=== PATIENT | female | born 1935 | race Caucasian/White ===

== ENCOUNTER 2018-04-07 09:44 | Emergency (ER) | payer OTHER ==
[2018-04-07] MEDS ORDERED: METOPROLOL XL 50 MG TAB PO ONE (10:23)
--- NOTE | 2018-04-07 11:26 | RAD REPORT ---
EXAM DESCRIPTION: RAD - Chest Single View - 04/07/2018 11:15 am CLINICAL HISTORY: Productive cough, sore throat COMPARISON: None. TECHNIQUE: AP portable chest image was obtained 1105 hours . FINDINGS: No focal mass or consolidation seen. Pulmonary vasculature within normal limits. Granuloma tous calcifications are present. Heart size is upper normal. Interstitial markings are prominent in e ach lung base and in the left midlung field. Baseline pattern for the patient is unknown. No measurab le pleural effusion and no pneumothorax. No acute bony abnormality seen. No acute aortic findings marcelo pected. IMPRESSION: No mass, consolidation or significant failure finding. Interstitial markings are prominent on this baseline study. This may all be chronic disease. A superi mposed interstitial edema or infiltrate cannot be excluded.
--- NOTE | 2018-04-07 11:30 | ER ---
Nurse's Notes [facility] Name: Isadora Jeffery Age: 82 yrs Sex: Female : 1935 Arrival Date: 04/07/2018 Time: 09:46 Bed 23 Private MD: Brown Pina R Diagnosis: Bronchitis, not specified as acute or chronic Presentation: 04/07 10:02 Presenting complaint: Patient states: productive cough with yellowish sputum and sore aa5 throat that began 2-3 days ago. Pt reports chest pain only with cough. Transition of care: patient was not received from another setting of care. Onset of symptoms was March 2018. Risk Assessment: Do you want to hurt yourself or someone else? Patient reports no desire to harm self or others. Initial Sepsis Screen: Does the patient meet any 2 criteria? No. Patient's initial sepsis screen is negative. Does the patient have a suspected source of infection? No. Patient's initial sepsis screen is negative. Care prior to arrival: None. 10:02 Method Of Arrival: Ambulatory aa5 10:02 Acuity: ROMELIA 2 aa5 Historical: - Allergies: 10:03 Codeine; aa5 - PMHx: 10:05 Hyperlipidemia; Hypertension; Depression; CVA; aa5 - PSHx: 10:03 Hysterectomy; Cholecystectomy; R foot; Appendectomy; carotid artery; aa5 10:05 Heart stents; aa5 - Immunization history:: Pneumococcal vaccine is up to date, Flu vaccine is up to date. - Social history:: Smoking status: Patient/guardian denies using tobacco. - Ebola Screening: : No symptoms or risks identified at this time. Screenin:38 Abuse screen: Denies threats or abuse. Denies injuries from another. Nutritional aj screening: No deficits noted. Tuberculosis screening: No symptoms or risk factors identified. Fall Risk None identified. Assessment: 10:38 General: Appears in no apparent distress. comfortable, Behavior is calm, cooperative, aj appropriate for age. Pain: Denies pain. Neuro: Level of Consciousness is awake, alert, obeys commands, Oriented to person, place, time, situation, Appropriate for age. Respiratory: Airway is patent Respiratory effort is even, unlabored, Respiratory pattern is regular, symmetrical. Respiratory: Breath sounds are clear bilaterally. EENT: Throat is reddened. Derm: Skin is intact, is healthy with good turgor, Skin is pink, warm \T\ dry. normal. 11:41 Reassessment: Patient appears in no apparent distress at this time. No changes from aj previously documented assessment. Patient and/or family updated on plan of care and expected duration. Pain level reassessed. Patient is alert, oriented x 3, equal unlabored respirations, skin warm/dry/pink. Vital Signs: 10:03 BP 220 / 71; Pulse 58; Resp 18 S; Temp 97.5(O); Pulse Ox 99% on R/A; Weight 51.26 kg aa5 (R); Height 5 ft. 7 in. (170.18 cm) (R); Pain 8/10; 11:19 BP 192 / 102; Pulse 69; Resp 18; Pulse Ox 99% on R/A; aj 10:03 Body Mass Index 17.70 (51.26 kg, 170.18 cm) aa5 ED Course: 09:46 Patient arrived in ED. sb2 09:46 Brown Pina MD is Private Physician. sb2 10:02 Arm band placed on. aa5 10:03 Triage completed. aa5 10:07 Manda Duran, LEWIS is Primary Nurse. aj 10:09 Dennys Watts PA is PHCP. jr8 10:09 Aj Basilio MD is Attending Physician. jr8 10:38 Patient has correct armband on for positive identification. Bed in low position. Pulse aj ox on. NIBP on. 11:13 XRAY Chest (1 view) In Process Unspecified. EDMS 11:30 Brown Pina MD is Referral Physician. jr8 11:41 No provider procedures requiring assistance completed. Patient did not have IV access aj during this emergency room visit. Administered Medications: 10:15 Drug: Metoprolol TARTRATE (Lopressor) 50 mg Route: PO; aj 11:29 Follow up: Response: Blood pressure is lowered aj Outcome: 11:30 Discharge ordered by . jr8 11:41 Discharged to home ambulatory. aj 11:41 Condition: good 11:41 Discharge instructions given to patient, Instructed on discharge instructions, follow up and referral plans. medication usage, Demonstrated understanding of instructions, follow-up care, medications, Prescriptions given X 2. 11:42 Patient left the ED. aj Signatures: Dispatcher [employer] Manda Lino RN RN aj Calderon, Audri, RN RN aa5 Dennys Watts PA PA jr8 Amanda Iraheta sb2 Corrections: (The following items were deleted from the chart) 10: 10:02 Acuity: ROMELIA 3 aa5 aa5 10: 10:02 Presenting complaint: Patient states: productive cough with yellowish sputum and aa5 sore throat that began 2-3 days ago aa5
--- NOTE | 2018-04-07 11:31 | EDPHYS ---
Physician Documentation [facility] Name: Isadora Jeffery Age: 82 yrs Sex: Female : 1935 Arrival Date: 04/07/2018 Time: 09:46 Bed 23 Private MD: Brown Pina R ED Physician Aj Basilio HPI: 04/07 10:49 This 82 yrs old Female presents to ER via Ambulatory with complaints of Sore jr8 Throat. 10:49 The patient presents with sore throat. The patient describes throat pain as jr8 intermittent, raw. Onset: The symptoms/episode began/occurred gradually, 3 day(s) ago. Severity of symptoms: At their worst the symptoms were mild, in the emergency department the symptoms are unchanged. Modifying factors: The symptoms are alleviated by nothing, the symptoms are aggravated by nothing. Associated signs and symptoms: Pertinent positives: cough, rhinorrhea. The patient has not experienced similar symptoms in the past. The patient has not recently seen a physician. Historical: - Allergies: 10:03 Codeine; aa5 - PMHx: 10:05 Hyperlipidemia; Hypertension; Depression; CVA; aa5 - PSHx: 10:03 Hysterectomy; Cholecystectomy; R foot; Appendectomy; carotid artery; aa5 10:05 Heart stents; aa5 - Immunization history:: Pneumococcal vaccine is up to date, Flu vaccine is up to date. - Social history:: Smoking status: Patient/guardian denies using tobacco. - Ebola Screening: : No symptoms or risks identified at this time. ROS: 10:49 Eyes: Negative for injury, pain, redness, and discharge, Neck: Negative for injury, jr8 pain, and swelling, Cardiovascular: Negative for chest pain, palpitations, and edema, Abdomen/GI: Negative for abdominal pain, nausea, vomiting, diarrhea, and constipation, Back: Negative for injury and pain, MS/Extremity: Negative for injury and deformity, Skin: Negative for injury, rash, and discoloration, Neuro: Negative for headache, weakness, numbness, tingling, and seizure. 10:49 ENT: Positive for rhinorrhea, sore throat. 10:49 Respiratory: Positive for cough, with yellow sputum, Negative for dyspnea on exertion, shortness of breath, wheezing. Exam: 10:49 Eyes: Pupils equal round and reactive to light, extra-ocular motions intact. Lids and jr8 lashes normal. Conjunctiva and sclera are non-icteric and not injected. Cornea within normal limits. Periorbital areas with no swelling, redness, or edema. ENT: Nares patent. No nasal discharge, no septal abnormalities noted. Tympanic membranes are normal and external auditory canals are clear. Oropharynx with no redness, swelling, or masses, exudates, or evidence of obstruction, uvula midline. Mucous membranes moist. Neck: Trachea midline, no thyromegaly or masses palpated, and no cervical lymphadenopathy. Supple, full range of motion without nuchal rigidity, or vertebral point tenderness. No Meningismus. Cardiovascular: Regular rate and rhythm with a normal S1 and S2. No gallops, murmurs, or rubs. Normal PMI, no JVD. No pulse deficits. Respiratory: Lungs have equal breath sounds bilaterally, clear to auscultation and percussion. No rales, rhonchi or wheezes noted. No increased work of breathing, no retractions or nasal flaring. Abdomen/GI: Soft, non-tender, with normal bowel sounds. No distension or tympany. No guarding or rebound. No evidence of tenderness throughout. Back: No spinal tenderness. No costovertebral tenderness. Full range of motion. Skin: Warm, dry with normal turgor. Normal color with no rashes, no lesions, and no evidence of cellulitis. MS/ Extremity: Pulses equal, no cyanosis. Neurovascular intact. Full, normal range of motion. Neuro: Awake and alert, GCS 15, oriented to person, place, time, and situation. Cranial nerves II-XII grossly intact. Motor strength 5/5 in all extremities. Sensory grossly intact. Cerebellar exam normal. Normal gait. Vital Signs: 10:03 BP 220 / 71; Pulse 58; Resp 18 S; Temp 97.5(O); Pulse Ox 99% on R/A; Weight 51.26 kg aa5 (R); Height 5 ft. 7 in. (170.18 cm) (R); Pain 8/10; 11:19 BP 192 / 102; Pulse 69; Resp 18; Pulse Ox 99% on R/A; aj 10:03 Body Mass Index 17.70 (51.26 kg, 170.18 cm) aa5 MDM: 10:09 Patient medically screened. [facility] 11:25 Data reviewed: vital signs, nurses notes, lab test result(s), radiologic studies, plain [facility] films, and as a result, I will discharge patient. Data interpreted: Pulse oximetry: on room air is 99 %. Interpretation: normal. Counseling: I had a detailed discussion with the patient and/or guardian regarding: the historical points, exam findings, and any diagnostic results supporting the discharge/admit diagnosis, lab results, radiology results, the need for outpatient follow up, a family practitioner, to return to the emergency department if symptoms worsen or persist or if there are any questions or concerns that arise at home. 04/07 10:15 Order name: Strep; Complete Time: 11: 04/07 10:15 Order name: Flu; Complete Time: 11 04/07 10:42 Order name: XRAY Chest (1 view); Complete Time: 11:29 [facility] 04/07 10:53 Order name: Throat Culture EDMA Administered Medications: 10:15 Drug: Metoprolol TARTRATE (Lopressor) 50 mg Route: PO; 11:29 Follow up: Response: Blood pressure is lowered aj Disposition: 04/07/18 11:30 Discharged to Home. Impression: Bronchitis, not specified as acute or chronic. - Condition is Stable. - Discharge Instructions: Acute Bronchitis, Adult. - Prescriptions for Prednisone 20 mg Oral Tablet - take 1 tablet by ORAL route once daily for 5 days; 5 tablet. Zithromax Z- Leonardo 250 mg Oral Tablet - take 1 tablet by ORAL route as directed for 5 days Day 1 - take two (2) tablets one time. Day 2, 3, 4 , 5 take one (1) tablet once daily.; 6 tablet. - Medication Reconciliation Form, Thank You Letter, Antibiotic Education, Prescription Opioid Use form. - Follow up: Brown Pina MD; When: 5 - 6 days; Reason: Recheck today's complaints, Continuance of care, Re-evaluation by your physician. - Problem is new. - Symptoms have improved. Addendum: 04/15/2018 11:23 Co-signature as Attending Physician, Aj Basilio MD I agree with the assessment and c welch plan of care. Signatures: Dispatcher [employer] Manda Lino RN RN aj Anderson, Corey, MD MD cha Calderon, Audri RN RN aa5 Dennys Watts PA PA jr8 Corrections: (The following items were deleted from the chart) 04/07 11:42 11:30 04/07/2018 11:30 Discharged to Home. Impression: Bronchitis, not specified as aj acute or chronic. Condition is Stable. Forms are Medication Reconciliation Form, Thank You Letter, Antibiotic Education, Prescription Opioid Use. Follow up: Brown Pina; When: 5 - 6 days; Reason: Recheck today's complaints, Continuance of care, Re-evaluation by your physician. Problem is new. Symptoms have improved. jr8
== END 2018-04-07 11:42 | disposition home or self-care (01) ==
LOC: ER 09:44
DX: J40 Bronchitis, not specified as acute or chronic (principal); E78.5 Hyperlipidemia, unspecified; I10 Essential (primary) hypertension; F32.9 Major depressive disorder, single episode, unspecified; Z86.73 Personal history of transient ischemic attack (TIA), and cerebral infarction without residual deficits; Z95.5 Presence of coronary angioplasty implant and graft
CPT/HCPCS: 71045; 87070; 87081; 87804; 99284

== ENCOUNTER 2018-06-15 13:24 | Emergency (ER) | payer OTHER ==
--- NOTE | 2018-06-15 13:53 | RAD REPORT ---
EXAM DESCRIPTION: CT - Ct Stroke Brain Wo Cont - 06/15/2018 1:44 pm CLINICAL HISTORY: Slurred speech, stroke-like symptoms, transient alteration of awareness CLINICAL HISTORY: None. TECHNIQUE: Axial 5 millimeter thick images of the head were obtained without IV contrast. All CT scans are performed using dose optimization technique as appropriate and may include automated exposure control or mA/KV adjustment according to patient size. FINDINGS: No intracranial hemorrhage, mass, or cerebral edema. No acute cortical based infarction id entified. Moderate atrophy and chronic ischemic changes are present. Old left parietal CVA changes ar e present. Ventricles are in proportion to volume loss. Arterial calcifications are present. No extra -axial fluid collections. Vargas matter-white matter differentiation is preserved. No globe or orbital content abnormality. Visualized portions of the mastoid air cells, paranasal sinuses, and orbits are unremarkable. Findings telephoned to Liane in the ER 1:49 p.m. IMPRESSION: No CT evidence of acute intracranial process. Patient has underlying moderate severity atrophy and chronic ischemic change along with old left chata etal CVA changes. Chronic ischemic changes can mask nonhemorrhagic acute infarction. MR brain followup can be obtained if there is ongoing concern for acute ischemia.
[2018-06-15 13:54] LABS: Absolute Lymphocytes (CBC) 1.5 K/uL (0.7-4.9); Absolute Monocytes 0.7 K/uL (0.1-1.3); Absolute Neutrophil 4.1 K/uL (1.8-8.0); Basophils % 0.7 % (0-1.3); Eosinophils % 2.1 % (0-4.4); Hematocrit 36.4 % (36.0-45.0); Lymphocytes % 23.7 % (15.3-44.8); MPV 9.6 fL (7.6-11.3); Monocytes % 10.1 % (3.3-12.3); RBC Red Blood Cell Count 4.15 M/uL (3.86-4.86)
[2018-06-15 14:00] LABS: Protime INR 0.96
[2018-06-15 14:08] LABS: Potassium 4.7 mmol/L (3.5-5.1)
[2018-06-15] MEDS ORDERED: ACETAMINOPHEN 325 MG TABLET ONE (14:21)
--- NOTE | 2018-06-15 14:39 | RAD REPORT ---
EXAM DESCRIPTION: RAD - Chest Single View - 06/15/2018 2:28 pm CLINICAL HISTORY: Fever, slurred speech COMPARISON: March 2018 TECHNIQUE: AP portable chest image was obtained 1357 hours . FINDINGS: Lungs are fibrotic as a baseline. Left upper lobe and lateral right base interstitial robert ings are increased fractionally over the prior study. No dense consolidation. Heart and vasculature a re normal. No measurable pleural effusion and no pneumothorax. No acute bony abnormality seen. No acu te aortic findings suspected. IMPRESSION: Slight increase in lung markings left upper lung field and lateral right base. Findings are concerning for early pneumonia superimposed on fibrosis.
[2018-06-15] MEDS ORDERED: ENALAPRILAT 1.25 MG/ML VIAL IV ONE (15:14)
--- NOTE | 2018-06-15 15:33 | ER ---
Nurse's Notes [facility] Name: Isadora Jeffery Age: 82 yrs Sex: Female : 1935 Arrival Date: 06/15/2018 Time: 13:25 Bed 8 Private MD: Diagnosis: Transient cerebral ischemic attack, unspecified Presentation: 06/15 13:30 Transition of care: patient was not received from another setting of care. An acute la1 neurological deficit is present. Pre-hospital glucose is not applicable to this patient. Onset of symptoms was June 15, 2018 at 13:00. Risk Assessment: Do you want to hurt yourself or someone else? Patient reports no desire to harm self or others. Initial Sepsis Screen: Does the patient meet any 2 criteria? No. Patient's initial sepsis screen is negative. Does the patient have a suspected source of infection? No. Patient's initial sepsis screen is negative. Care prior to arrival: None. 13:30 Method Of Arrival: Ambulatory la1 13:30 Acuity: ROMELIA 2 la1 13:35 Presenting complaint: Child states: I called her around 1300 and she was having slurred la1 speech, pt is alert, oriented x4 and states her slurred speech and trouble forming words started at 1300. Stroke Activation: Symptom onset < 3 hours Physician: Stroke Attending; Name: dr willoughby; Notified At: 13:00; Arrived At: 13:30 Physician: Chief Stroke Resident; Name: ; Notified At: 13:00; Arrived At: Physician: Stroke Resident; Name: ; Notified At: 13:00; Arrived At: Physician: ED Attending; Name: ; Notified At: 13:00; Arrived At: Physician: ED Resident; Name: ; Notified At: 13:00; Arrived At: Historical: - Allergies: 13:38 Codeine; la1 - PMHx: 13:38 CVA; Depression; Hyperlipidemia; Hypertension; la1 - Immunization history:: Adult Immunizations up to date. - Social history:: Smoking status: Patient/guardian denies using tobacco. - Ebola Screening: : No symptoms or risks identified at this time. Screenin:56 Abuse screen: Denies threats or abuse. Denies injuries from another. Nutritional jl7 screening: No deficits noted. Tuberculosis screening: No symptoms or risk factors identified. Fall Risk IV access (20 points). Total Boyd Fall Scale indicates No Risk (0-24 pts). Assessment: 13:56 VAN Scoring: Arm Drift: Patients demonstrates NO arm weakness. Patient is VAN Negative. jl7 The patient has not been NPO before screening. The patient is currently on the following diet: regular The patient is alert, and able to follow commands. The patient does not exhibit slurred or garbled speech. The patient is not exhibiting difficulty speaking. The patient does not exhibit difficulty understanding words. The patient is able to swallow own secretions with no drooling or need for suction. Patient tolerated one teaspoon of water. No drooling, immediate coughing, gurgling, or clearing of the throat was noted. The patient tolerated 90mL of water. No drooling, immediate coughing, gurgling, or clearing of the throat was noted. The patient passed the bedside swallow screening. Oral medications may be given as ordered. Contact Physician for further diet orders. Provider notified of bedside swallow screening results: Oswald Willoughby MD. T-PA (Activase) Screening: Contraindications: Rapidly improving condition or minor deficit: Yes. General: Appears in no apparent distress. uncomfortable, Behavior is calm, cooperative, appropriate for age. Pain: Complains of pain in occipital area Pain currently is 8 out of 10 on a pain scale. Pain began 1 hour ago. Neuro: Level of Consciousness is awake, alert, obeys commands, Oriented to person, place, time, situation. Cardiovascular: Patient's skin is warm and dry. Respiratory: Airway is patent Respiratory effort is even, unlabored, Respiratory pattern is regular, symmetrical. GI: No signs and/or symptoms were reported involving the gastrointestinal system. Patient currently denies diarrhea, nausea, vomiting. : No signs and/or symptoms were reported regarding the genitourinary system. EENT: No signs and/or symptoms were reported regarding the EENT system. Derm: Skin is pink, warm \T\ dry. Musculoskeletal: No signs and/or symptoms reported regarding the musculoskeletal system. 15:00 Reassessment: Patient appears in no apparent distress at this time. Patient and/or jl7 family updated on plan of care and expected duration. Pain level reassessed. Patient is alert, oriented x 3, equal unlabored respirations, skin warm/dry/pink. 15:32 Reassessment: Pt's son Josue Jeffery, . jl7 16:10 Reassessment: [facility] at bedside to transport pt to [facility], pt's family jl7 will be following. Pt's BP unchanged, ERD notified, ordered 10 mg Hydralazine IVP prior to departure. Vital Signs: 13:45 BP 152 / 90; Pulse 61; Resp 18 S; Pulse Ox 100% on R/A; jl7 14:04 BP 216 / 87; Pulse 55; Resp 16 S; Pulse Ox 100% on R/A; jl7 14:45 BP 233 / 62; Pulse 56; Resp 16 S; Pulse Ox 100% on R/A; jl7 15:00 BP 226 / 65; Pulse 53; Resp 16 S; Pulse Ox 99% on R/A; jl7 16:10 BP 142 / 90; Pulse 55; Resp 16 S; Pulse Ox 99% on R/A; jl7 NIH Stroke Scale Scores: 13:56 NIHSS Score: 0 jl7 15:04 NIHSS Score: 0 ED Course: 13:25 Patient arrived in ED. as 13:30 Oswald Willoughby MD is Attending Physician. gs 13:38 Triage completed. la1 13:38 Arm band placed on left wrist. la1 13:44 CT Stroke Brain w/o Contrast In Process Unspecified. EDMS 13:55 Vineet Ivory, RN is Primary Nurse. jl7 13:56 Patient has correct armband on for positive identification. Placed in gown. Bed in low jl7 position. Call light in reach. Side rails up X2. residential monitor on. Pulse ox on. NIBP on. Warm blanket given. 13:56 Initial lab(s) drawn, by me, sent to lab. EKG done, by ED staff, reviewed by Oswald Willoughby MD. Inserted saline lock: 22 gauge in right forearm, using aseptic technique. Blood collected. 14:28 Stroke CXR 1 View In Process Unspecified. EDMS 14:36 initiated a transfer with Torri Noel at the [facility] transfer center. eb 14:54 connected the neurologist branch operations manager from [facility] with Dr. Willoughby for patient eb transfer consultation/. 15:[address] Hadley the hospitalist branch operations manager from [facility] with Dr. Willoughby for patient eb transfer consultation. 15:27 administrative approval given by Torri Noel / patient going to [address] [place] [facility]/ eb report to be called to [phone]/ has accepted the patient in transfer. 16:14 No provider procedures requiring assistance completed. Patient transferred, IV remains jl7 in place. intact, No redness/swelling at site. Administered Medications: 14:15 Drug: Tylenol 650 mg Route: PO; jl7 15:15 Follow up: Response: No adverse reaction; Pain is decreased jl7 15:10 Drug: Enalaprilat 1.25 mg Route: IV; Rate: calculated rate; Site: right forearm; jl7 15:12 Follow up: IV Status: Completed infusion jl7 15:38 Follow up: Response: Blood pressure is unchanged jl7 15:46 Drug: hydrALAZINE 10 mg Route: IV; Rate: calculated rate; Site: right forearm; jl7 15:48 Follow up: IV Status: Completed infusion jl7 16:10 Follow up: Response: Blood pressure is unchanged jl7 16:10 Drug: hydrALAZINE 10 mg Route: IV; Rate: calculated rate; Site: right forearm; jl7 16:12 Follow up: IV Status: Completed infusion jl7 Point of Care Testing: Blood Glucose: 13:50 Blood Glucose: 160 mg/dL; jl7 Ranges: Outcome: 15:32 ER care complete, transfer ordered by MD. triplett 16:14 Transferred by ground EMS to [facility], Transfer form completed. jl7 16:14 Condition: stable 16:14 Discharge instructions given to patient, family, Instructed on the need for transfer, Demonstrated understanding of instructions. 16:19 Patient left the ED. jl7 NIH Stroke Scale - NIH Stroke Score Date: 06/15/2018 Time: 13:56 Total Score = 0 1a. Level of Consciousness (LOC) - 0(Alert) 1b. Level of Consciousness (LOC) (Year \T\ Age) - 0(Both) 1c. LOC Commands (Open \T\ Closes Eyes/Landscaping Supervisor) - 0(Both) 2. Best Gaze (Lateral Gaze Paresis) - 0(Normal) 3. Visual Field Loss - 0(No visual loss) 4. Facial Palsy - 0(Normal) 5a. Left Arm: Motor (10-second hold) - 0(No drift) 5b. Right Arm: Motor (10-second hold) - 0(No drift) 6a. Left Leg: Motor (5-second hold - always test supine) - 0(No drift) 6b. Right Leg: Motor (5-second hold - always test supine) - 0(No drift) 7. Limb Ataxia (finger/nose \T\ heel/gutierrez - test with eyes open) - 0(Absent) 8. Sensory Loss (pinprick arms/legs/face) - 0(Normal) 9. Best Language: Aphasia (description/naming/reading) - 0(No aphasia) 10. Dysarthria (speech clarity - read or repeat words) - 0(Normal) 11. Extinction and Inattention (visual/tactile/auditory/spatial/personal) - 0(No abnormality) Initials: jl7 NIH Stroke Scale - NIH Stroke Score Date: 06/15/2018 Time: 15:04 Total Score = 0 1a. Level of Consciousness (LOC) - 0(Alert) 1b. Level of Consciousness (LOC) (Year \T\ Age) - 0(Both) 1c. LOC Commands (Open \T\ Closes Eyes/Landscaping Supervisor) - 0(Both) 2. Best Gaze (Lateral Gaze Paresis) - 0(Normal) 3. Visual Field Loss - 0(No visual loss) 4. Facial Palsy - 0(Normal) 5a. Left Arm: Motor (10-second hold) - 0(No drift) 5b. Right Arm: Motor (10-second hold) - 0(No drift) 6a. Left Leg: Motor (5-second hold - always test supine) - 0(No drift) 6b. Right Leg: Motor (5-second hold - always test supine) - 0(No drift) 7. Limb Ataxia (finger/nose \T\ heel/gutierrez - test with eyes open) - 0(Absent) 8. Sensory Loss (pinprick arms/legs/face) - 0(Normal) 9. Best Language: Aphasia (description/naming/reading) - 0(No aphasia) 10. Dysarthria (speech clarity - read or repeat words) - 0(Normal) 11. Extinction and Inattention (visual/tactile/auditory/spatial/personal) - 0(No abnormality) Initials: Signatures: Dispatcher [employer] Rozina Monroy Lee, RN RN la1 Vineet Ivory RN RN jl7 Oswald Willoughby MD MD gs Botello, Elizabeth eb
--- NOTE | 2018-06-15 15:33 | EDPHYS ---
Physician Documentation [facility] Name: Isadora Jeffery Age: 82 yrs Sex: Female : 1935 Arrival Date: 06/15/2018 Time: 13:25 Bed 8 Private MD: ED Physician Oswald Matthews HPI: 06/15 15:04 This 82 yrs old Female presents to ER via Ambulatory with complaints of gs Slurred Speech. 15:04 The patient presents to the emergency department with weakness of the left side of the gs face, a speech or higher order brain function problem, aphasia. Onset: The symptoms/episode began/occurred today, at 13:00. Associated signs and symptoms: Pertinent negatives: altered mental status. Severity of symptoms: At their worst the symptoms were severe in the emergency department the symptoms have resolved and did so just prior to arrival. Patient's baseline: Motor: no deficits, Ambulation: walks without assistance. Current symptoms: Currently, the patient is not experiencing any symptoms. The patient has experienced a previous episode. The patient has not recently seen a physician. Historical: - Allergies: 13:38 Codeine; la1 - PMHx: 13:38 CVA; Depression; Hyperlipidemia; Hypertension; la1 - Immunization history:: Adult Immunizations up to date. - Social history:: Smoking status: Patient/guardian denies using tobacco. - Ebola Screening: : No symptoms or risks identified at this time. ROS: 15:04 All other systems are negative. gs Exam: 15:04 Head/Face: Normocephalic, atraumatic. Eyes: Pupils equal round and reactive to light, gs extra-ocular motions intact. Lids and lashes normal. Conjunctiva and sclera are non-icteric and not injected. Cornea within normal limits. Periorbital areas with no swelling, redness, or edema. ENT: Nares patent. No nasal discharge, no septal abnormalities noted. Tympanic membranes are normal and external auditory canals are clear. Oropharynx with no redness, swelling, or masses, exudates, or evidence of obstruction, uvula midline. Mucous membranes moist. Neck: Trachea midline, no thyromegaly or masses palpated, and no cervical lymphadenopathy. Supple, full range of motion without nuchal rigidity, or vertebral point tenderness. No Meningismus. Chest/axilla: Normal chest wall appearance and motion. Nontender with no deformity. No lesions are appreciated. Cardiovascular: Regular rate and rhythm with a normal S1 and S2. No gallops, murmurs, or rubs. Normal PMI, no JVD. No pulse deficits. Respiratory: Lungs have equal breath sounds bilaterally, clear to auscultation and percussion. No rales, rhonchi or wheezes noted. No increased work of breathing, no retractions or nasal flaring. Abdomen/GI: Soft, non-tender, with normal bowel sounds. No distension or tympany. No guarding or rebound. No evidence of tenderness throughout. Back: No spinal tenderness. No costovertebral tenderness. Full range of motion. Skin: Warm, dry with normal turgor. Normal color with no rashes, no lesions, and no evidence of cellulitis. MS/ Extremity: Pulses equal, no cyanosis. Neurovascular intact. Full, normal range of motion. 15:04 Constitutional: The patient appears alert, awake. 15:04 Neuro: Orientation: is normal, Mentation: is normal, Memory: is normal, Cranial nerves: CN II- XII are normal as tested, Cerebellar function: normal finger to nose testing, Motor: moves all fours, strength is normal, Sensation: no obvious gross deficits. 15:04 ECG was reviewed by the Attending Physician. Vital Signs: 13:45 BP 152 / 90; Pulse 61; Resp 18 S; Pulse Ox 100% on R/A; jl7 14:04 BP 216 / 87; Pulse 55; Resp 16 S; Pulse Ox 100% on R/A; jl7 14:45 BP 233 / 62; Pulse 56; Resp 16 S; Pulse Ox 100% on R/A; jl7 15:00 BP 226 / 65; Pulse 53; Resp 16 S; Pulse Ox 99% on R/A; jl7 16:10 BP 142 / 90; Pulse 55; Resp 16 S; Pulse Ox 99% on R/A; jl7 NIH Stroke Scale Scores: 13:56 NIHSS Score: 0 [facility] 15:04 NIHSS Score: 0 MDM: 13:52 Patient medically screened. 15:04 Data reviewed: vital signs, nurses notes, old medical records, lab test result(s), EKG, gs radiologic studies. Counseling: I had a detailed discussion with the patient and/or guardian regarding: the historical points, exam findings, and any diagnostic results supporting the discharge/admit diagnosis, the need to transfer to another facility. Response to treatment: the patient's symptoms have resolved after treatment. ED course: ddx cva, tia, neoplasm, ic bleed. 15:11 ED course: pt has no s/s of pneumonia will trend cxr findings. 06/15 13:30 Order name: Basic Metabolic Panel; Complete Time: 15:02 06/15 13:30 Order name: CBC with Diff; Complete Time: 15: 06/15 13:30 Order name: Protime (+inr); Complete Time: 15:02 06/15 13:30 Order name: Ptt, Activated; Complete Time: 15:02 06/15 13:30 Order name: CT Stroke Brain w/o Contrast; Complete Time: 15:02 06/15 13:30 Order name: Stroke CXR 1 View; Complete Time: 15:02 06/15 13:30 Order name: EKG; Complete Time: 13:31 06/15 13:30 Order name: Accucheck; Complete Time: 14:17 06/15 13:30 Order name: Cardiac monitoring; Complete Time: 14:00 06/15 13:30 Order name: EKG - Nurse/Tech; Complete Time: 14:00 06/15 13:30 Order name: IV Saline Lock; Complete Time: 14:00 06/15 13:30 Order name: Labs collected and sent; Complete Time: 14:00 06/15 13:30 Order name: NPO; Complete Time: 14:01 06/15 13:30 Order name: O2 Per Protocol; Complete Time: 14:00 06/15 13:30 Order name: O2 Sat Monitoring; Complete Time: 14:00 06/15 13:30 Order name: Stroke Swallow Screen; Complete Time: 14:01 EC:04 Rate is 55 beats/min. Rhythm is regular. KS interval is normal. QRS interval is gs prolonged. T waves are Inverted. Clinical impression: NSR w/ Non-specific ST/T Changes. Interpreted by me. Administered Medications: 14:15 Drug: Tylenol 650 mg Route: PO; jl7 15:15 Follow up: Response: No adverse reaction; Pain is decreased jl7 15:10 Drug: Enalaprilat 1.25 mg Route: IV; Rate: calculated rate; Site: right forearm; jl7 15:12 Follow up: IV Status: Completed infusion jl7 15:38 Follow up: Response: Blood pressure is unchanged jl7 15:46 Drug: hydrALAZINE 10 mg Route: IV; Rate: calculated rate; Site: right forearm; jl7 15:48 Follow up: IV Status: Completed infusion jl7 16:10 Follow up: Response: Blood pressure is unchanged jl7 16:10 Drug: hydrALAZINE 10 mg Route: IV; Rate: calculated rate; Site: right forearm; jl7 16:12 Follow up: IV Status: Completed infusion jl7 Point of Care Testing: Blood Glucose: 13:50 Blood Glucose: 160 mg/dL; jl7 Ranges: Critical Glucose Levels:Adult <50 mg/dl or >400 mg/dl <40 mg/dl or >180 mg/dl Disposition: 06/15/18 15:[address] [facility]. Diagnosis is Transient cerebral ischemic attack, unspecified. - Reason for transfer: Higher level of care. - Accepting physician is guanaco. - Condition is Stable. - Problem is new. - Symptoms are resolved. Critical care time excluding procedures: 15:11 Critical care time: Bedside Care: 10 minutes, Consultation: 10 minutes, Family gs Intervention: 10 minutes. Total time: 30 minutes NIH Stroke Scale - NIH Stroke Score Date: 06/15/2018 Time: 13:56 Total Score = 0 1a. Level of Consciousness (LOC) - 0(Alert) 1b. Level of Consciousness (LOC) (Year \T\ Age) - 0(Both) 1c. LOC Commands (Open \T\ Closes Eyes/Gas Operations Superintendent) - 0(Both) 2. Best Gaze (Lateral Gaze Paresis) - 0(Normal) 3. Visual Field Loss - 0(No visual loss) 4. Facial Palsy - 0(Normal) 5a. Left Arm: Motor (10-second hold) - 0(No drift) 5b. Right Arm: Motor (10-second hold) - 0(No drift) 6a. Left Leg: Motor (5-second hold - always test supine) - 0(No drift) 6b. Right Leg: Motor (5-second hold - always test supine) - 0(No drift) 7. Limb Ataxia (finger/nose \T\ heel/gutierrez - test with eyes open) - 0(Absent) 8. Sensory Loss (pinprick arms/legs/face) - 0(Normal) 9. Best Language: Aphasia (description/naming/reading) - 0(No aphasia) 10. Dysarthria (speech clarity - read or repeat words) - 0(Normal) 11. Extinction and Inattention (visual/tactile/auditory/spatial/personal) - 0(No abnormality) Initials: jl7 NIH Stroke Scale - NIH Stroke Score Date: 06/15/2018 Time: 15:04 Total Score = 0 1a. Level of Consciousness (LOC) - 0(Alert) 1b. Level of Consciousness (LOC) (Year \T\ Age) - 0(Both) 1c. LOC Commands (Open \T\ Closes Eyes/Gas Operations Superintendent) - 0(Both) 2. Best Gaze (Lateral Gaze Paresis) - 0(Normal) 3. Visual Field Loss - 0(No visual loss) 4. Facial Palsy - 0(Normal) 5a. Left Arm: Motor (10-second hold) - 0(No drift) 5b. Right Arm: Motor (10-second hold) - 0(No drift) 6a. Left Leg: Motor (5-second hold - always test supine) - 0(No drift) 6b. Right Leg: Motor (5-second hold - always test supine) - 0(No drift) 7. Limb Ataxia (finger/nose \T\ heel/gutierrez - test with eyes open) - 0(Absent) 8. Sensory Loss (pinprick arms/legs/face) - 0(Normal) 9. Best Language: Aphasia (description/naming/reading) - 0(No aphasia) 10. Dysarthria (speech clarity - read or repeat words) - 0(Normal) 11. Extinction and Inattention (visual/tactile/auditory/spatial/personal) - 0(No abnormality) Initials: Signatures: Dispatcher [employer] EDMS Kavin Santamaria RN RN [email or web address] Vineet Ivory RN RN jl7 Oswald Matthews MD MD gs Corrections: (The following items were deleted from the chart) 16:19 15:32 06/15/2018 15:[address] [facility]. jl7 Diagnosis is Transient cerebral ischemic attack, unspecified. Reason for transfer: Higher level of care. Accepting physician is wahid. Condition is Stable. Problem is new. Symptoms are resolved. gs
[2018-06-15] MEDS ORDERED: HYDRALAZINE HCL 20 MG/ML VIAL ONE (15:54)
--- NOTE | 2018-06-16 09:12 | EKG ---
Test Date: 2018-06-15 Test Time: 13:57:34 Medication Tech: HIMANSHU MEASUREMENT RESULTS: Intervals: Rate: 55 ID: [id number] QRSD: 108 QT: 452 QTc: 432 [place]: P: 73 ID: [id number] QRS: -27 T: -40 INTERPRETIVE STATEMENTS: Sinus bradycardia Left ventricular hypertrophy with repolarization abnormality Septal infarct, age undetermined Abnormal ECG No previous ECG available for comparison Electronically Signed On 06-16-18 09:12:04 [employer] by Timmy Garcia
== END 2018-06-15 16:19 | disposition short-term general hospital (02) ==
LOC: ER 13:24
DX: G45.9 Transient cerebral ischemic attack, unspecified (principal); I10 Essential (primary) hypertension; Z86.73 Personal history of transient ischemic attack (TIA), and cerebral infarction without residual deficits; Z88.5 Allergy status to narcotic agent
CPT/HCPCS: 93005; 85025; 80048; 36415; 85610; 82962; 85730; 70450; 71045; 96375; 96374; 99285; J0360

== ENCOUNTER 2019-04-29 12:04 | Observation (INO) | payer OTHER ==
--- OUTSIDE RECORDS SUMMARY | 2019-04-29 12:06 | XMS REPORT ---
:1935 [facility] Address [address] [place] [address] Care Team Providers Name Role Phone NICOLE RUBALCAVA Unavailable Unavailable Problems This patient has no known problems. Allergies, Adverse Reactions, Alerts This patient has no known allergies or adverse reactions. Medications This patient has no known medications. Results Test Description Test Time Test Comments Text Results Atomic Results Result Comments CALCIUM, IONIZED 2018-06-17 06:48:00 Test Item Value Reference Range Comments CALCIUM IONIZED (BEAKER) (test xala=310) 1.05 mmol/L 1.12-1.27 PH, BLOOD (BEAKER) (test vyno=7408) 7.43 [id number] 06:12:00 Test Item Value Reference Range Comments PHOSPHORUS (BEAKER) (test bnkt=157) 3.4 mg/dL 2.3-4.7 [id number] 06:12:00 Test Item Value Reference Range Comments MAGNESIUM (BEAKER) (test fqwd=786) 1.7 mg/dL 1.6-2.6 BASIC METABOLIC [id number] 06:12:00 Test Item Value Reference Range Comments SODIUM (BEAKER) (test 142 meq/L 136-145 fwzo=710) POTASSIUM (BEAKER) (test 4.6 meq/L 3.5-5.1 sqnu=512) CHLORIDE (BEAKER) (test 112 meq/L 98-107 mjal=113) CO2 (BEAKER) (test 24 meq/L 22-29 xhek=845) BLOOD UREA NITROGEN 35 mg/dL 7-21 (BEAKER) (test ucco=879) CREATININE (BEAKER) (test 1.55 mg/dL 0.57-1.25 riur=098) GLUCOSE RANDOM (BEAKER) 101 mg/dL 70-105 (test uymn=054) CALCIUM (BEAKER) (test 8.5 mg/dL 8.4-10.2 gotr=781) EGFR (BEAKER) (test 32 mL/min/1.73 sq m ESTIMATED GFR IS NOT atux=6616) ACCURATE CREATININE CLEARANCE IN PREDICTING GLOMERULAR FILTRATION RATE. ESTIMATED GFR IS NOT APPLICABLE FOR DIALYSIS PATIENTS. CBC W/PLT COUNT & AUTO [id number] 05:34:00 Test Item Value Reference Range Comments WHITE BLOOD CELL COUNT (BEAKER) (test kylh=432) 5.1 K/ L 3.5-10.5 RED BLOOD CELL COUNT (BEAKER) (test udsy=522) 3.43 M/ L 3.93-5.22 HEMOGLOBIN (BEAKER) (test bsgn=513) 10.0 GM/DL 11.2-15.7 HEMATOCRIT (BEAKER) (test idne=976) 31.7 % 34.1-44.9 MEAN CORPUSCULAR VOLUME (BEAKER) (test okmv=203) 92.4 fL 79.4-94.8 MEAN CORPUSCULAR HEMOGLOBIN (BEAKER) (test 29.2 pg 25.6-32.2 sxjd=961) MEAN CORPUSCULAR HEMOGLOBIN CONC (BEAKER) (test 31.5 GM/DL 32.2-35.5 vdsu=490) RED CELL DISTRIBUTION WIDTH (BEAKER) (test 12.9 % 11.7-14.4 ffpf=268) PLATELET COUNT (BEAKER) (test giod=994) 156 K/CU MM 150-450 MEAN PLATELET VOLUME (BEAKER) (test path=079) 11.6 fL 9.4-12.3 NUCLEATED RED BLOOD CELLS (BEAKER) (test 0 /100 WBC 0-0 jvud=720) NEUTROPHILS RELATIVE PERCENT (BEAKER) (test 63 % fanf=288) LYMPHOCYTES RELATIVE PERCENT (BEAKER) (test 24 % riro=806) MONOCYTES RELATIVE PERCENT (BEAKER) (test 10 % glam=085) EOSINOPHILS RELATIVE PERCENT (BEAKER) (test 2 % zgsy=205) BASOPHILS RELATIVE PERCENT (BEAKER) (test 1 % kcyr=048) NEUTROPHILS ABSOLUTE COUNT (BEAKER) (test 3.20 K/ L 1.56-6.13 ngbp=248) LYMPHOCYTES ABSOLUTE COUNT (BEAKER) (test 1.19 K/ L 1.18-3.74 pvje=716) MONOCYTES ABSOLUTE COUNT (BEAKER) (test 0.49 K/ L 0.24-0.36 cjni=182) EOSINOPHILS ABSOLUTE COUNT (BEAKER) (test 0.12 K/ L 0.04-0.36 ptqw=680) BASOPHILS ABSOLUTE COUNT (BEAKER) (test 0.03 K/ L 0.01-0.08 pbqj=194) IMMATURE GRANULOCYTES-RELATIVE PERCENT (BEAKER) 0 % 0-1 (test wijc=6183) MR, MRA, BRAIN, WITHOUT [id number] 10:59:00Reason for exam:-> Ischemic Stroke EvaluationFINAL REPORT MRA Head CLINICAL HISTORY: Stroke TECHNIQUE: MRA of the head utilizing 3-D coio-kq-lczghw technique, with 3-D reconstructions. COMPARISON: None IMPRESSION: Allowing for mild motion degradation, there is no evidence for a [place] proximal branch vessel occlusion. Distal branch vessel occlusions cannot be excluded. Aneurysms cannot be excluded. MRA Neck CLINICAL HISTORY: Stroke TECHNIQUE: MRA of the neck utilizing 2-D and 3-D jsuf-hq-vrpdrj technique, with 3-D reconstructions. COMPARISON: None IMPRESSION: Metallic shielding effect around the left carotid bifurcation is compatible with a stent. The left carotid artery is patent proximal and distal to the stent, but please note that in- stent stenosis cannot be excluded. There is 20% stenosis of the proximal right internal carotid artery by NASCET criteria. There is antegrade flow in the right vertebral artery. The proximal left vertebral artery is not visualized. The distal left cervical vertebral artery is discontinuous and threadlike, likely partially reconstituted by cervical muscular branches. Signed: Arianna Rosas MDReport Verified Date/Time: 06/16/2018 10:59:34 Reading Location: [address] Neuro Reading Room MR, MRA, NECK, WITHOUT IV [id number] 10:59: 00Reason for exam:->Ischemic Stroke EvaluationFINAL REPORT MRA Head CLINICAL HISTORY: Stroke TECHNIQUE: MRA of the head utilizing 3-D ouap-cl-zgjhbn technique, with 3-D reconstructions. COMPARISON: None IMPRESSION: Allowing for mild motion degradation, there is no evidence for a [place] proximal branch vessel occlusion. Distal branch vessel occlusions cannot be excluded. Aneurysms cannot be excluded. MRA Neck CLINICAL HISTORY: Stroke TECHNIQUE: MRA of the neck utilizing 2-D and 3-D time- of-flight technique, with 3-D reconstructions. COMPARISON: None IMPRESSION: Metallic shielding effect around the left carotid bifurcation is compatible with a stent. The left carotid artery is patent proximal and distal to the stent , but please note that in-stent stenosis cannot be excluded. There is 20% stenosis of the proximal right internal carotid artery by NASCET criteria. There is antegrade flow in the right vertebral artery. The proximal left vertebral artery is not visualized. The distal left cervical vertebral artery is discontinuous and threadlike, likely partially reconstituted by cervical muscular branches. Signed: Arianna Rosasort Verified Date/Time: 2018 10:59:34 Reading Location: [address] Neuro Reading Room MR, BRAIN, WITHOUT [id number] 10:52:00Reason for exam:->Ischemic Stroke EvaluationFINAL REPORT MRI Brain without contrast Clinical History: TIA, stroke Technique: MRI of the brain utilizing axial T2, FLAIR, GRE, DWI; sagittal and coronal T1-weighted images. Comparisons: None Findings: There is no evidence of acute infarct or hemorrhage. There are chronic leftmid and posterior frontal lobe infarcts. There is a chronic left parietal infarct with encephalomalacia and mild hemosiderin staining. There are small chronic left occipital pole infarcts. There is moderate periventricular and subcortical white matter T2 hyperintensity, which is nonspecific but compatible with chronic microvascular ischemic change. There is generalized parenchymal volume loss withouthydrocephalus, midline shift, or apparent mass effect. There are no extra-axial fluid collections. The craniocervical junction is preserved. The major intracranial flow-voids appear patent. IMPRESSION: No evidence of acute infarct, hemorrhage, or hydrocephalus. Chronic infarcts of the left frontal, parietal, and occipital lobes. Chronic microvascular ischemic disease with generalized parenchymal volume loss. Signed: Arianna Rosasort Verified Date/Time: 06/16/2018 10:52:22 Reading Location: [address] Neuro Reading Room HEMOGLOBIN [id number] 09:43:00 Test Item Value Reference Range Comments HEMOGLOBIN A1C (BEAKER) (test izcg=353) 5.9 % 4.3-6.1 VITAMIN [id number] 06:40:00 Test Item Value Reference Range Comments VITAMIN B12 (BEAKER) (test apuv=828) 375 pg/mL 213-816 TSH/FREE T4 IF [id number] 05:45:00 Test Item Value Reference Range Comments THYROID STIMULATING HORMONE (BEAKER) (test 4.44 uIU/mL 0.35-4.94 kypy=206) LIPID [id number] 05:27:00 Test Item Value Reference Range Comments TRIGLYCERIDES (BEAKER) (test 73 mg/dL Specimen slightly hemolyzed vrqz=108) CHOLESTEROL (BEAKER) (test 114 mg/dL Specimen slightly hemolyzed sjsw=883) HDL CHOLESTEROL (BEAKER) (test 46 mg/dL dtmn=779) LDL CHOLESTEROL CALCULATED 53 mg/dL (BEAKER) (test bvqw=676) Triglyceride Reference Range: Low Risk <150 Borderline 150- 199 High Risk 200-499 Very High Risk >=500Cholesterol Reference Range: Low Risk <200 Borderline 200-239 High Risk > 240HDL Cholesterol Reference Range: Low Risk >=60 High Risk <40LDL Cholesterol Reference Range: Optimal <100 Near Optimal 100-129 Borderline 130-159 High 160-189 Very High >=190
--- OUTSIDE RECORDS SUMMARY | 2019-04-29 12:06 | XMS REPORT ---
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 Problem Presence of right artificial hip Z96.641 Active joint Assessment Pain of right hip joint pain M25.551 Active Problem Scoliosis of lumbar region due to M41.56 Active degenerative disease of spine in adult Problem Pain of right hip joint pain M25.551 Active Medications Medication Code System Code Instructions Start End Date Status Dosage Date Alendronate Sodium [facility] 06247-57 Active not defined 01-00 Metoprolol [facility] 91986-91 Active not defined Succinate 11-30 Atorvastatin [facility] 97607-76 Active not defined Calcium 57-98 Losartan Potassium [facility] 64370-40 Active not defined 02-10 Prasugrel HCl [facility] 16074-44 Active not defined 86-93 Aspirin [facility] 44608-65 Active not defined 36-12 Levothyroxine [facility] 46473-46 Active not defined Sodium - Results No Known Results Summary Purpose [employer] Submission
--- OUTSIDE RECORDS SUMMARY | 2019-04-29 12:07 | XMS REPORT ---
:1935 Author Organization [employer] Care Team Providers Name Role Phone HilliardTucker Provider Role Unavailable Allergies, Adverse Reactions, Alerts Substance Reaction Event Type codeine Info Not Available Drug Allergy Problems Problem Type Condition Code Onset Dates Condition Status Assessment Presence of right artificial hip Z96.641 [...] joint pain M25.551 Active Medications Medication Code Code Instructions Start End Status Dosage System Date Date Atorvastatin [facility] [address]-13 Active not Calcium defined Metoprolol [facility] [address]-34 Active not Succinate defined Alendronate [facility] [address]-90 Active not Sodium defined Levothyroxine [facility] [address]-49 Active not Sodium defined Losartan [facility] [address]-15 Active not Potassium defined Aspirin [facility] [address]-28 Active not defined Prasugrel HCl [facility] [address]-21 Active not defined Tylenol 8 Hour [facility] [id number] 650 MG Orally November 06, Active 2 tablets every 8 hrs 2019 as needed Results No Known Results Summary Purpose [employer] Submission
[2019-04-29] MEDS ORDERED: NA CHLORIDE 0.9% 1,000 ML ONE (13:49)
--- NOTE | 2019-04-29 14:06 | RAD REPORT ---
EXAM DESCRIPTION: CT - Head Brain Wo Cont - 04/29/2019 1:56 pm CLINICAL HISTORY: Dizziness;Headache Headache, hypertension, drowsiness COMPARISON: Ct Stroke Brain Wo Cont dated 06/15/2018 TECHNIQUE: All CT scans are performed using dose optimization technique as appropriate and may inclu de automated exposure control or mA/KV adjustment according to patient size. FINDINGS: No intracranial hemorrhage, hydrocephalus or extra-axial fluid collection.Moderate general ized brain atrophy is present with moderate periventricular and deep white matter chronic microvascul ar ischemic changes.No areas of brain edema or evidence of midline shift. The paranasal sinuses and mastoids are clear. The calvarium is intact. IMPRESSION: No acute intracranial abnormality.
[2019-04-29 14:31] LABS: Absolute Lymphocytes (CBC) 1.7 K/uL (0.7-4.9); Basophils % 0.5 % (0-1.3); Hematocrit 34.4 % (36.0-45.0); Lymphocytes % 20.3 % (15.3-44.8); RBC Red Blood Cell Count 3.82 M/uL (3.86-4.86)
[2019-04-29 14:32] LABS: Protime INR 0.89
--- NOTE | 2019-04-29 14:42 | EKG ---
Test Date: 2019-04-29 Test Time: 14:17:24 [employer] Converter: VERNELL MEASUREMENT RESULTS: Intervals: Rate: 82 UT: 132 QRSD: 102 QT: 386 QTc: 450 [place]: P: 87 UT: 132 QRS: -17 T: 80 INTERPRETIVE STATEMENTS: Normal sinus rhythm with sinus arrhythmia Moderate voltage criteria for LVH, may be normal variant Cannot rule out Septal infarct, age undetermined Abnormal ECG Compared to ECG 06/15/2018 13:57:34 Sinus bradycardia no longer present Early repolarization no longer present Myocardial infarct finding still present Electronically Signed On 04-29-19 14:41:56 SKEIN MERCERIZING MACHINE OPERATOR by Timmy Garcia
--- NOTE | 2019-04-29 14:46 | RAD REPORT ---
EXAM DESCRIPTION: RAD - Chest Single View - 04/29/2019 2:41 pm CLINICAL HISTORY: COUGH Chest pain. COMPARISON: Chest Single View dated 06/15/2018; Chest Single View dated 04/07/2018 FINDINGS: Portable technique limits examination quality. The lungs are emphysematous but grossly clear. The heart is normal in size. Mild scoliotic curvature of the thoracic spine.Cholecystectomy clips. IMPRESSION: COPD.
[2019-04-29 14:49] LABS: ALT/SGPT 23 U/L (12-78); AST/SGOT 21 U/L (15-37); Albumin 3.7 g/dL (3.4-5.0); Alkaline Phosphatase 75 U/L (45-117); BUN Blood Urea Nitrogen 39 mg/dL (7-18); Bicarbonate 21 mmol/L (21-32); Bilirubin Direct 0.1 mg/dL (0-0.2); Bilirubin Total 0.3 mg/dL (0.2-1.0); Glucose Level 97 mg/dL (74-106); Lipase 426 U/L (73-393); Magnesium 2.1 mg/dL (1.8-2.4); NT PRO-BNP 3247 pg/mL (<450); Protein, Total 7.3 g/dL (6.4-8.2); Sodium Level 142 mmol/L (136-145); Troponin (Emerg Dept Use Only) < 0.02 ng/mL (0.0-0.045)
--- NOTE | 2019-04-29 15:29 | EDPHYS ---
Physician Documentation [facility] Name: Isadora Jeffery Age: 83 yrs Sex: Female : 1935 Arrival Date: 04/29/2019 Time: 12:06 Bed 14 Private MD: Brown Pina R ED Physician Aj Basilio HPI: 04/29 13:43 This 83 yrs old Female presents to ER via Wheelchair with complaints of Feet serge Swelling, Mouth Swelling. 13:43 The patient presents with swelling. The problem is located in the mouth. Onset: The serge symptoms/episode began/occurred 2 day(s) ago. Duration: The symptoms are continuous, and are unchanged since they started. Modifying factors: The symptoms are alleviated by nothing, the symptoms are aggravated by nothing. Associated signs and symptoms: The patient has no apparent associated signs or symptoms. Severity of symptoms: At their worst the symptoms were mild, in the emergency department the symptoms are unchanged. The patient has not experienced similar symptoms in the past. Historical: - Allergies: 12:33 Codeine; ss - Home Meds: 16:01 hydralazine 25 mg Oral tab 1 tab three times a day [Active]; metoprolol tartrate 50 mg bp Oral tab 1 tab once daily [Active]; losartan 100 mg oral tab 1 tab once daily [Active]; atorvastatin 20 mg oral tab 1 tab once daily [Active]; prasugrel oral 10 MG oral 1 tab once daily [Active]; tramadol 50 mg Oral tab 1 tab nightly [Active]; alendronate 70 mg oral tab 1 tab once wkly [Active]; levothyroxine 25 mcg tab 1 tab once daily [Active]; hydrochlorothiazide 12.5 mg Oral tab 1 tab once daily [Active]; amlodipine 10 mg tab 1 tab once daily [Active]; - PMHx: 12:33 CVA; Depression; Hyperlipidemia; Hypertension; ss - Immunization history:: Adult Immunizations up to date. - Social history:: Smoking status: Patient/guardian denies using tobacco. - Ebola Screening: : Patient denies exposure to infectious person Patient denies travel to an Ebola-affected area in the 21 days before illness onset. - Family history:: not pertinent. ROS: 13:43 Constitutional: Negative for fever, chills, and weight loss, Eyes: Negative for injury, serge pain, redness, and discharge, ENT: Negative for injury, pain, and discharge, Neck: Negative for injury, pain, and swelling, Cardiovascular: Negative for chest pain, palpitations, and edema, Respiratory: Negative for shortness of breath, cough, wheezing, and pleuritic chest pain, Abdomen/GI: Negative for abdominal pain, nausea, vomiting, diarrhea, and constipation, Back: Negative for injury and pain, : Negative for injury, bleeding, discharge, and swelling, MS/Extremity: Negative for injury and deformity, Skin: Negative for injury, rash, and discoloration, Neuro: Negative for headache, weakness, numbness, tingling, and seizure, Psych: Negative for depression, anxiety, suicide ideation, homicidal ideation, and hallucinations, Allergy/Immunology: Negative for hives, rash, and allergies, Endocrine: Negative for neck swelling, polydipsia, polyuria, polyphagia, and marked weight changes, Hematologic/Lymphatic: Negative for swollen nodes, abnormal bleeding, and unusual bruising. Exam: 13:43 Constitutional: This is a well developed, well nourished patient who is awake, alert, serge and in no acute distress. Head/Face: Normocephalic, atraumatic. Eyes: Pupils equal round and reactive to light, extra-ocular motions intact. Lids and lashes normal. Conjunctiva and sclera are non-icteric and not injected. Cornea within normal limits. Periorbital areas with no swelling, redness, or edema. ENT: Nares patent. No nasal discharge, no septal abnormalities noted. Tympanic membranes are normal and external auditory canals are clear. Oropharynx with no redness, swelling, or masses, exudates, or evidence of obstruction, uvula midline. Mucous membranes moist. Neck: Trachea midline, no thyromegaly or masses palpated, and no cervical lymphadenopathy. Supple, full range of motion without nuchal rigidity, or vertebral point tenderness. No Meningismus. Chest/axilla: Normal chest wall appearance and motion. Nontender with no deformity. No lesions are appreciated. Cardiovascular: Regular rate and rhythm with a normal S1 and S2. No gallops, murmurs, or rubs. Normal PMI, no JVD. No pulse deficits. Respiratory: Lungs have equal breath sounds bilaterally, clear to auscultation and percussion. No rales, rhonchi or wheezes noted. No increased work of breathing, no retractions or nasal flaring. Abdomen/GI: Soft, non-tender, with normal bowel sounds. No distension or tympany. No guarding or rebound. No evidence of tenderness throughout. Back: No spinal tenderness. No costovertebral tenderness. Full range of motion. Skin: Warm, dry with normal turgor. Normal color with no rashes, no lesions, and no evidence of cellulitis. MS/ Extremity: Pulses equal, no cyanosis. Neurovascular intact. Full, normal range of motion. Neuro: Awake and alert, GCS 15, oriented to person, place, time, and situation. Cranial nerves II-XII grossly intact. Motor strength 5/5 in all extremities. Sensory grossly intact. Cerebellar exam normal. Normal gait. Psych: Awake, alert, with orientation to person, place and time. Behavior, mood, and affect are within normal limits. Vital Signs: 12:33 BP 153 / 92; Pulse 86; Resp 16; Temp 97.6(TE); Pulse Ox 100% on R/A; Weight 50.35 kg; ss Height 5 ft. 7 in. (170.18 cm); Pain 0/10; 13:01 BP 183 / 69; Pulse 73; Resp 16; Pulse Ox 99% ; bp 14:00 BP 200 / 63 LA; Pulse 89 LA; Resp 99; Temp 100; Pain 0/10; tt1 15:30 BP 195 / 64; Pulse 71; Resp 17; Pulse Ox 99% ; bp 16:30 BP 182 / 53; Pulse 85; Resp 16; Pulse Ox 98% ; bp 12:33 Body Mass Index 17.38 (50.35 kg, 170.18 cm) MDM: 13:03 Patient medically screened. [facility] 13:45 Data reviewed: vital signs, nurses notes, lab test result(s), EKG, radiologic studies, serge plain films. 04/29 13:42 Order name: Basic Metabolic Panel; Complete Time: 15:24 [facility] 04/29 13:42 Order name: CBC with Diff [facility] 04/29 13:42 Order name: LFT's; Complete Time: 15:24 [facility] 04/29 13:42 Order name: Magnesium; Complete Time: 15:24 [facility] 04/29 13:42 Order name: NT PRO-BNP; Complete Time: 15:24 [facility] 04/29 13:42 Order name: PT-INR; Complete Time: 15:24 [facility] 04/29 13:42 Order name: Troponin (emerg Dept Use Only); Complete Time: 15:24 [facility] 04/29 13:42 Order name: Lipase; Complete Time: 15:24 [facility] 04/29 13:42 Order name: Urine Culture [facility] 04/29 15:27 Order name: Blood Culture Adult (2) [facility] 04/29 15:29 Order name: Influenza Screen (a \T\ B) 04/29 15:29 Order name: Influenza Screen (A [facility] 04/29 15:32 Order name: Urine Dipstick--Ancillary (enter results) 04/29 15:49 Order name: Flu bp 04/29 13:42 Order name: XRAY Chest (1 view); Complete Time: 15:24 [facility] 04/29 13:42 Order name: EKG; Complete Time: 13:46 [facility] 04/29 13:42 Order name: Cardiac monitoring; Complete Time: 14:26 [facility] 04/29 13:42 Order name: EKG - Nurse/Tech; Complete Time: 14:26 [facility] 04/29 13:42 Order name: IV Saline Lock; Complete Time: 15:44 [facility] 04/29 13:42 Order name: Labs collected and sent; Complete Time: 14:26 [facility] 04/29 13:42 Order name: O2 Per Protocol; Complete Time: 14:26 [facility] 04/29 13:42 Order name: O2 Sat Monitoring; Complete Time: 14:26 [facility] 04/29 13:42 Order name: Urine Dipstick-Ancillary (obtain specimen); Complete Time: 15:44 [facility] 04/29 13:42 Order name: CT Head Brain wo Cont; Complete Time: 14:18 [facility] 04/29 15:50 Order name: CBC Smear Scan [facility] 04/29 16:25 Order name: Diet Heart Healthy; Complete Time: 16:27 bd Administered Medications: 15:30 Drug: NS 0.9% 1000 ml Route: IV; Rate: 125 ml/hr; Site: left forearm; bp 17:07 Follow up: IV Status: Infusion continued upon admission bp 16:00 Drug: Tylenol 650 mg Route: PO; bp 17:07 Follow up: Response: No adverse reaction bp 16:15 Drug: hydrALAZINE 10 mg Route: IV; Rate: per protocol; Site: left forearm; bp 17:07 Follow up: IV Status: Completed infusion bp 16:30 Drug: Rocephin 1 grams Route: IV; Rate: per protocol; Site: left forearm; bp 17:07 Follow up: IV Status: Completed infusion; IV Intake: 50ml bp Disposition: 04/29/19 15:29 Hospitalization ordered by Everett Julien for Inpatient Admission. Preliminary diagnosis are Weakness, Essential (primary) hypertension, Unspecified kidney failure, Urinary tract infection, site not specified, Fever, unspecified. - Bed requested for Telemetry/MedSurg (Inpatient). - Status is Inpatient Admission. bp - Condition is Fair. - Problem is new. - Symptoms have improved. UTI on Admission? Yes Signatures: Dispatcher [employer] EDMS Araseli Garcia Corey, MD MD cha Smirch, Shelby, LEWIS RN ss Valerio Wood RN RN bp Corrections: (The following items were deleted from the chart) 16:34 15:29 Hospitalization Ordered by Everett Julien DO for Inpatient Admission. Preliminary bd diagnosis is Weakness; Essential (primary) hypertension; Unspecified kidney failure; Urinary tract infection, site not specified; Fever, unspecified. Bed requested for Telemetry/MedSurg (Inpatient). Status is Inpatient Admission. Condition is Fair. Problem is new. Symptoms have improved. UTI on Admission? Yes. [facility] 17:51 16:34 04/29/2019 15:29 Hospitalization Ordered by Everett Julien DO for Inpatient bp Admission. Preliminary diagnosis is Weakness; Essential (primary) hypertension; Unspecified kidney failure; Urinary tract infection, site not specified; Fever, unspecified. Bed requested for Telemetry/MedSurg (Inpatient). Status is Inpatient Admission. Condition is Fair. Problem is new. Symptoms have improved. UTI on Admission? Yes. bd
--- NOTE | 2019-04-29 15:29 | ER ---
Nurse's Notes [facility] Name: Isadora Jeffery Age: 83 yrs Sex: Female : 1935 Arrival Date: 04/29/2019 Time: 12:06 Bed 14 Private MD: Brown Pina R Diagnosis: Weakness;Essential (primary) hypertension;Unspecified kidney failure;Urinary tract infection, site not specified;Fever, unspecified Presentation: 04/29 12:20 Presenting complaint: Patient states: Pt reports she has been battling her high blood ss pressure recently because it has been "all over the place". Pt was seen by Dr. Malcolm yesterday and told to double up on her Hydralazine 25 mg tablets that she began taking 3 days ago. Pt is concerned because since this morning she has noticed she is at times short of breath, and noticed she is having some swelling in her feet and redness to her hands. Transition of care: patient was not received from another setting of care. Onset of symptoms was April 29, 2019. Risk Assessment: Do you want to hurt yourself or someone else? Patient reports no desire to harm self or others. Initial Sepsis Screen: Does the patient meet any 2 criteria? No. Patient's initial sepsis screen is negative. Does the patient have a suspected source of infection? No. Patient's initial sepsis screen is negative. Care prior to arrival: None. 12:20 Acuity: ROMELIA 3 ss 12:20 Method Of Arrival: Wheelchair ss Triage Assessment: 12:20 General: Appears in no apparent distress. comfortable, Behavior is cooperative, bp appropriate for age, anxious. Pain: Denies pain. EENT: Reports MOUTH SWELLING. Neuro: No deficits noted. Cardiovascular: Rhythm is sinus rhythm. Respiratory: No deficits noted. GI: No signs and/or symptoms were reported involving the gastrointestinal system. : No signs and/or symptoms were reported regarding the genitourinary system. Derm: No deficits noted. Musculoskeletal: No deficits noted. Historical: - Allergies: 12:33 Codeine; ss - Home Meds: 16:01 hydralazine 25 mg Oral tab 1 tab three times a day [Active]; metoprolol tartrate 50 mg bp Oral tab 1 tab once daily [Active]; losartan 100 mg oral tab 1 tab once daily [Active]; atorvastatin 20 mg oral tab 1 tab once daily [Active]; prasugrel oral 10 MG oral 1 tab once daily [Active]; tramadol 50 mg Oral tab 1 tab nightly [Active]; alendronate 70 mg oral tab 1 tab once wkly [Active]; levothyroxine 25 mcg tab 1 tab once daily [Active]; hydrochlorothiazide 12.5 mg Oral tab 1 tab once daily [Active]; amlodipine 10 mg tab 1 tab once daily [Active]; - PMHx: 12:33 CVA; Depression; Hyperlipidemia; Hypertension; ss - Immunization history:: Adult Immunizations up to date. - Social history:: Smoking status: Patient/guardian denies using tobacco. - Ebola Screening: : Patient denies exposure to infectious person Patient denies travel to an Ebola-affected area in the 21 days before illness onset. - Family history:: not pertinent. Screenin:20 Abuse screen: Denies threats or abuse. Denies injuries from another. Nutritional bp screening: No deficits noted. Tuberculosis screening: No symptoms or risk factors identified. Fall Risk None identified. Assessment: 12:20 General: SEE TRIAGE NOTE. bp 14:27 Reassessment: PT RETURNED FROM CT, CXR AND EKG COMPLETED. PIV ON HOLD PER FAMILY bp REQUEST. NO ACUTE S/S DISTRESS. 15:41 Reassessment: ADMIT IN PROCESS. ADMIT MD AT B/S. bp 16:07 Reassessment: spoke with Cesario (son [phone]), he would like someone to go over dm5 medications to look at what they are, what the side effects are, make sure that she needs all of them, and ensure that they aren't working against each other. He feels something that isn't right with her medications because she is on several different blood pressure medications but her blood pressure is still high. Vital Signs: 12:33 BP 153 / 92; Pulse 86; Resp 16; Temp 97.6(TE); Pulse Ox 100% on R/A; Weight 50.35 kg; ss Height 5 ft. 7 in. (170.18 cm); Pain 0/10; 13:01 BP 183 / 69; Pulse 73; Resp 16; Pulse Ox 99% ; bp 14:00 BP 200 / 63 LA; Pulse 89 LA; Resp 99; Temp 100; Pain 0/10; tt1 15:30 BP 195 / 64; Pulse 71; Resp 17; Pulse Ox 99% ; bp 16:30 BP 182 / 53; Pulse 85; Resp 16; Pulse Ox 98% ; bp 12:33 Body Mass Index 17.38 (50.35 kg, 170.18 cm) ED Course: 12:06 Patient arrived in ED. as 12:06 Brown Pina MD is Private Physician. as 12:20 Valerio Wood, LEWIS is Primary Nurse. bp 12:20 Patient has correct armband on for positive identification. Bed in low position. Call bp light in reach. Side rails up X2. 12:33 Triage completed. ss 12:33 Arm band placed on right wrist. 13:03 Aj Basilio MD is Attending Physician. serge 13:57 CT Head Brain wo Cont In Process Unspecified. EDMS 14:41 XRAY Chest (1 view) In Process Unspecified. EDMS 15:27 Everett Julien DO is Hospitalizing Provider. serge 15:43 Inserted saline lock: 22 gauge in left forearm, using aseptic technique. bp 17:08 No provider procedures requiring assistance completed. Patient admitted, IV remains in bp place. Administered Medications: 15:30 Drug: NS 0.9% 1000 ml Route: IV; Rate: 125 ml/hr; Site: left forearm; bp 17:07 Follow up: IV Status: Infusion continued upon admission bp 16:00 Drug: Tylenol 650 mg Route: PO; bp 17:07 Follow up: Response: No adverse reaction bp 16:15 Drug: hydrALAZINE 10 mg Route: IV; Rate: per protocol; Site: left forearm; bp 17:07 Follow up: IV Status: Completed infusion bp 16:30 Drug: Rocephin 1 grams Route: IV; Rate: per protocol; Site: left forearm; bp 17:07 Follow up: IV Status: Completed infusion; IV Intake: 50ml bp Intake: 17:07 IV: 50ml; Total: 50ml. bp Outcome: 15:29 Decision to Hospitalize by Provider. serge 17:08 Admitted to Tele accompanied by tech, family with patient, via wheelchair, room 217, bp with chart, Report called to EARL SAUCEDO 17:08 Condition: stable 17:08 Instructed on the need for admit. 17:51 Patient left the ED. bp Signatures: Dispatcher [employer] EDMS Mirta Razo RN RN dmAj Ford MD MD cha Martinez, Amelia as Smirch, Shelby, RN RN ss Cassy Reilly tt1 Valerio Wood RN RN bp Corrections: (The following items were deleted from the chart) 13:00 12:59 General: SEE TRIAGE NOTE. bp bp
[2019-04-29 15:49] LABS: Blood Morphology Comment NOT SEEN (NOT SEEN); Platelet Estimate ADEQ; Urine White Blood Cell Casts OK
--- NOTE | 2019-04-29 16:11 | P.HP ---
Certification for Inpatient Patient admitted to: Observation With expected LOS: <2 Midnights Patient will require the following post-hospital care: None Practitioner: I am a practitioner with admitting privileges, knowledge of patient current condition, hospital course, and medical plan of care. Services: Services provided to patient in accordance with Admission requirements found in Title 42 Section 412.3 of the Code of Federal Regulations Patient History Date of Service: 04/29/19 Primary Care Provider: Dr. Ramirez; Cardiology-Dr. Malcolm Reason for admission: Headache, shortness of breath History of Present Illness: 83-year-old female with history of CVA, depression with anxiety, hyperlipidemia, CAD, hypertension, carotid arterial disease, and hypothyroidism. Patient reported headache and shortness of breath since yesterday. She reports that she saw her engineer sergeant yesterday. Her blood pressures have been elevated and not well controlled. Her engineer sergeant recently increased her hydralazine to 50 mg 3 times a day. She was previously taking 25 mg 3 times a day. She denies any chest pain, nausea, vomiting. She has reported some edema to the lower extremity. She came to the ER due to elevated blood pressure. In the ER blood pressure was elevated. CBC showed a white count of 8.1, hemoglobin 11.4. Platelet count 230. Sodium 142, potassium 5.0. BUN of 39, creatinine 1.73 with a GFR 28. Glucose 97. Troponin unremarkable. BNP 3200. Chest x-rayed showed COPD changes. CT head unremarkable. Patient was given medication in the ER. She was admitted for observation. When I saw the patient ER, she did not appear in any distress. Patient takes multiple medications for blood pressure including Norvasc 10 mg daily, hydralazine 50 mg 3 times a day, hydrochlorothiazide 12.5 mg daily, losartan 100 mg daily, and metoprolol 50 mg daily. Allergies codeine Allergy (Unverified 09/16/13 01:12) Unknown Home medications list reviewed: Yes - Past Medical/Surgical History -: Hypertension -: Hyperlipidemia -: History CVA -: Carotid arterial disease with prior stent -: CAD -: Hypothyroidism -: Carotid stent -: Right partial hip replacement Psychosocial/ Personal History: Patient is a . She lives by herself. - Family History Family History: Reviewed- Non-Contributory - Social History Smoking Status: Never smoker Alcohol use: No CD- Drugs: No Caffeine use: No Place of Residence: Home Review of Systems General: Weakness, As per HPI Eyes: Unremarkable ENT: Unremarkable Respiratory: Shortness of Breath, As per HPI Cardiovascular: Light Headedness, As per HPI Gastrointestinal: Unremarkable Genitourinary: Unremarkable Musculoskeletal: Pedal edema, As per HPI Integumentary: Unremarkable Neurological: Unremarkable Lymphatics: Unremarkable Physical Examination - Physical Exam General: Alert, In no apparent distress, Oriented x3, Cooperative HEENT: Atraumatic, Normocephalic, Mucous membr. moist/pink Neck: Supple Respiratory: Clear to auscultation bilaterally, Normal air movement Cardiovascular: Normal pulses, Regular rate/rhythm Gastrointestinal: Normal bowel sounds, Soft and benign, Non-distended, No tenderness, No masses, No rebound, No guarding Musculoskeletal: No erythema, No tenderness, No warmth Integumentary: No tenderness/swelling, No erythema, No warmth, No cyanosis Neurological: Normal speech, Normal strength at 5/5 x4 extr, Normal tone, Normal affect - Studies Laboratory Data (last 24 hrs) 04/29/19 14:15: PT 10.6, INR 0.89 04/29/19 14:15: WBC 8.1, Hgb 11.4 L, Hct 34.4 L, Plt Count 230 04/29/19 14:15: Sodium 142, Potassium 5.0, BUN 39 H, Creatinine 1.73 H, Glucose 97, Magnesium 2.1, Total Bilirubin 0.3, AST 21, ALT 23, Alkaline Phosphatase 75 , Lipase 426 H Assessment and Plan - Plan Impression: Shortness of breath, headache likely secondary to uncontrolled hypertension Hyperlipidemia CAD with carotid arterial disease History of CVA Hypothyroidism Chronic renal disease stage IV Plan: Shortness of breath, headache likely secondary to uncontrolled hypertension: Patient will be admitted for observation to further evaluate. Will continue to monitor telemetry and cardiac enzymes. Medications reviewed. Will adjust medications to get blood pressure slightly better controlled. Will increase metoprolol to 50 mg twice daily. Will decrease hydralazine to 25 mg 1 pill 3 times a day. Will continue with Norvasc 10 mg daily, losartan 100 mg daily, and hydrochlorothiazide 12.5 mg daily. Will continue to monitor and adjust. Would like to see the blood pressure less than 150/90. Anticipate likely discharge tomorrow with blood pressure better controlled. Hyperlipidemia: Continue with Lipitor 20 mg daily CAD with carotid arterial disease: Continue with Prasugrel 10 mg daily and aspirin 81 mg daily History of CVA: Continue with medication. Hypothyroidism: Will continue with home medication levothyroxine 25 mcg daily. Will check tsh and free T4. Chronic renal disease stage IV: Previous lab indicates chronic renal disease. Will monitor closely. Will check renal ultrasound. Patient would benefit with nephrology evaluation as an outpatient. Discharge Plan: Home Plan to discharge in: 24 Hours - Advance Directives Does patient have a Living Will: No Does patient have a Durable POA for Healthcare: No - Code Status/Comfort Care Code Status Assessed: Yes Time Spent Managing Pts Care (In Minutes): 55
[2019-04-29] MEDS ORDERED: CEFTRIAXONE/SWI 1gm 1 GM/10 ML SYR ONE (16:14)
[2019-04-29] MEDS ORDERED: HYDRALAZINE HCL 20 MG/ML VIAL ONE (16:14)
[2019-04-29] MEDS ORDERED: ACETAMINOPHEN 325 MG TABLET ONE (16:14)
[2019-04-29] MEDS ORDERED: NA CHLORIDE 0.9% 100 ML IV ONE (16:14)
[2019-04-29 17:47] LABS: Urine Blood NEGATIVE (NEG); Urine Glucose NEGATIVE (NEG); Urine Protein 1+ (NEG)
[2019-04-29] MEDS ORDERED: ACETAMINOPHEN 500 MG TAB PO PRN (18:21)
[2019-04-29] MEDS ORDERED: ONDANSETRON 4 MG/2 ML VIAL IV PRN (18:21)
[2019-04-29 18:58] VITALS: BMI 17.4
--- NOTE | 2019-04-29 20:06 | RAD REPORT ---
EXAM DESCRIPTION: US - Renal Ultrasound-Complete - 04/29/2019 7:52 pm CLINICAL HISTORY: . Chronic renal disease COMPARISON: 2016 FINDINGS: The right kidney measures 8 cm with a normal echotexture. The left kidney measures 9 cm with a normal echotexture. Hydronephrosis is not seen. No abnormality of the bladder noted IMPRESSION: Unremarkable renal ultrasound.
[2019-04-29] MEDS ORDERED: ATORVASTATIN 20 MG TAB PO SCH (21:00)
[2019-04-29] MEDS ORDERED: HYDRALAZINE HCL 25 MG TABLET PO SCH (21:00)
[2019-04-29] MEDS: METOPROLOL TAR 50 MG TAB PO SCH (21:27)
[2019-04-29] MEDS: ENOXAPARIN 30 MG/0.3 ML SQ SCH (21:28)
[2019-04-29] MEDS ORDERED: cloNIDine HCL 0.1 MG TAB PO ONE (22:54)
[2019-04-29 23:39] LABS: CKMB Creatine Kinase MB 1.7 ng/mL (0.3-3.6); Troponin I 0.02 ng/mL (0.0-0.045)
[2019-04-30 04:02] LABS: CKMB Creatine Kinase MB 1.6 ng/mL (0.3-3.6); Creatine Phosphokinase 78 U/L (26-192); Troponin I < 0.02 ng/mL (0.0-0.045)
[2019-04-30 04:09] LABS: Magnesium 2.1 mg/dL (1.8-2.4); Potassium 4.8 mmol/L (3.5-5.1)
[2019-04-30 04:17] LABS: Thyroid Stimulating Hormone 6.19 uIU/mL (0.360-3.740)
[2019-04-30] MEDS: METOPROLOL TAR 50 MG TAB PO SCH (06:02)
[2019-04-30] MEDS ORDERED: LEVOTHYROXINE SOD 0.025 MG TAB PO SCH (06:30)
[2019-04-30] MEDS: ENOXAPARIN 30 MG/0.3 ML SQ SCH (09:00)
[2019-04-30] MEDS ORDERED: PRASUGREL (EFFIENT) 10 MG TAB PO SCH (09:00)
[2019-04-30] MEDS ORDERED: ASPIRIN EC 81 MG TAB PO SCH (09:00)
[2019-04-30] MEDS ORDERED: AMLODIPINE 10 MG TAB PO SCH (09:00)
[2019-04-30] MEDS ORDERED: LOSARTAN POTASSIUM 50 MG TABLET PO SCH (09:00)
[2019-04-30] MEDS ORDERED: hydroCHLOROthiazide 12.5 MG CAP PO SCH (09:00)
[2019-04-30 09:02] VITALS: BP 166/67
--- NOTE | 2019-04-30 09:13 | P.DS ---
Admission Date: 04/29/19 Discharge Date: 04/30/19 Primary Care Provider: Dr. Ramirez; Cardiology-Dr. Malcolm; Nephrology-Dr. Thornton Disposition: ROUTINE DISCHARGE Discharge Condition: GOOD Reason for Admission: Headache, shortness of breath Consultations: none Procedures: CT Head: COMPARISON: Ct Stroke Brain Wo Cont dated 06/15/2018 TECHNIQUE: All CT scans are performed using dose optimization technique as appropriate and may include automated exposure control or mA/KV adjustment according to patient size. FINDINGS: No intracranial hemorrhage, hydrocephalus or extra-axial fluid collection.Moderate generalized brain atrophy is present with moderate periventricular and deep white matter chronic microvascular ischemic changes.No areas of brain edema or evidence of midline shift. The paranasal sinuses and mastoids are clear. The calvarium is intact. IMPRESSION: No acute intracranial abnormality. CXR: COMPARISON: Chest Single View dated 06/15/2018; Chest Single View dated 2017 FINDINGS: Portable technique limits examination quality. The lungs are emphysematous but grossly clear. The heart is normal in size. Mild scoliotic curvature of the thoracic spine.Cholecystectomy clips. IMPRESSION: COPD. Renal US: COMPARISON: 2016 FINDINGS: The right kidney measures 8 cm with a normal echotexture. The left kidney measures 9 cm with a normal echotexture. Hydronephrosis is not seen. No abnormality of the bladder noted IMPRESSION: Unremarkable renal ultrasound. Medical Problem List: Shortness of breath, headache likely secondary to uncontrolled hypertension Hyperlipidemia CAD with carotid arterial disease History of CVA Hypothyroidism Chronic renal disease stage IV Brief History of Present Illness: 83-year-old female with history of CVA, depression with anxiety, hyperlipidemia, CAD, hypertension, carotid arterial disease, and hypothyroidism. Patient reported headache and shortness of breath since yesterday. She reports that she saw her lokie driver yesterday. Her blood pressures have been elevated and not well controlled. Her lokie driver recently increased her hydralazine to 50 mg 3 times a day. She was previously taking 25 mg 3 times a day. She denies any chest pain, nausea, vomiting. She has reported some edema to the lower extremity. She came to the ER due to elevated blood pressure. In the ER blood pressure was elevated. CBC showed a white count of 8.1, hemoglobin 11.4. Platelet count 230. Sodium 142, potassium 5.0. BUN of 39, creatinine 1.73 with a GFR 28. Glucose 97. Troponin unremarkable. BNP 3200. Chest x-rayed showed COPD changes. CT head unremarkable. Patient was given medication in the ER. She was admitted for observation. When I saw the patient ER, she did not appear in any distress. Patient takes multiple medications for blood pressure including Norvasc 10 mg daily, hydralazine 50 mg 3 times a day, hydrochlorothiazide 12.5 mg daily, losartan 100 mg daily, and metoprolol 50 mg daily. Hospital Course: Patient presented with shortness of breath and headaches secondary to uncontrolled hypertension. Patient had been seen by Cardiology recently. Her medications have been adjusted. Cardiology had increase her hydralazine from 25 mg 3 times a day to 50 mg 3 times a day. Patient also takes Norvasc 10 mg daily, losartan 100 mg daily, metoprolol 50 mg 1 pill daily and hydrochlorothiazide 12.5 mg daily. Blood pressures were elevated in the ER. Patient was admitted for further evaluation and treatment. Plan of care was to decrease the hydralazine back to 25 mg 3 times a day and increase metoprolol to 50 mg 1 pill twice daily. Patient declined to take hydralazine. This was addressed with her lokie driver. Cardiology recommended to decrease hydralazine any increase metoprolol. Currently blood pressure has remained stable off hydralazine and with increased dose of metoprolol. Heart rate around 55-60. Will recommend to continue with Norvasc 10 mg daily, losartan 100 mg daily, hydrochlorothiazide 12.5 mg daily and increased dose of metoprolol 50 mg 1 pill twice daily. If her blood pressure remains elevated will recommend to continue with hydralazine 25 mg twice daily. This was recommended by Cardiology. Recommend to keep track of her blood pressures daily. Recommend to follow up with cardiology to further monitor and manage. Patient will need to monitor for elevated blood pressure and low heart rate. Patient with hyperlipidemia. At discharge she will continue with Lipitor 20 mg daily. Patient with CAD and carotid arterial disease. Patient will continue with Prasugrel 10 mg daily and aspirin 81 mg daily. Patient with history of CVA. At discharge she will continue with her current medication. CT head unremarkable. Patient with hypothyroidism. At discharge she will continue with her current dose of levothyroxine. This can be further monitor and manage by her PCP. Patient with chronic renal disease stage IV. This has remained stable. Renal ultrasound reviewed. Patient is seen by nephrology as an outpatient. Recommend follow up with Nephrology to further monitor. Vital Signs/Physical Exam: Temp Pulse Resp BP Pulse Ox 97.0 F 54 16 166/67 H 95 04/30/19 04:00 04/30/19 09:01 04/30/19 04:00 04/30/19 09:01 04/30/19 04:00 General: Alert, In no apparent distress, Oriented x3, Cooperative HEENT: Atraumatic Neck: Supple Respiratory: Clear to auscultation bilaterally, Normal air movement Cardiovascular: Normal pulses, Regular rate/rhythm Gastrointestinal: Normal bowel sounds, Soft and benign, Non-distended, No tenderness, No masses, No rebound, No guarding Musculoskeletal: No erythema, No tenderness, No warmth Integumentary: No tenderness/swelling, No erythema, No warmth, No cyanosis Neurological: Normal speech, Normal strength at 5/5 x4 extr, Normal tone, Normal affect Laboratory Data at Discharge: WBC 8.1 K/uL (4.3-10.9) 04/29/19 14:15 Hgb 11.4 g/dL (12.0-15.0) L 04/29/19 14:15 Hct 34.4 % (36.0-45.0) L 04/29/19 14:15 Plt Count 230 K/uL (152-406) 04/29/19 14:15 PT 10.6 SECONDS (9.5-12.5) 04/29/19 14:15 INR 0.89 04/29/19 14:15 Sodium 146 mmol/L (136-145) H 04/30/19 03:04 Potassium 4.8 mmol/L (3.5-5.1) 04/30/19 03:04 BUN 35 mg/dL (7-18) H 04/30/19 03:04 Creatinine 1.86 mg/dL (0.55-1.3) H 04/30/19 03:04 Glucose 104 mg/dL (74-106) 04/30/19 03:04 Magnesium 2.1 mg/dL (1.8-2.4) 04/30/19 03:04 Total Bilirubin 0.3 mg/dL (0.2-1.0) 04/29/19 14:15 AST 21 U/L (15-37) 04/29/19 14:15 ALT 23 U/L (12-78) 04/29/19 14:15 Alkaline Phosphatase 75 U/L (45-117) 04/29/19 14:15 Troponin I < 0.02 ng/mL (0.0-0.045) 04/30/19 03:04 Lipase 426 U/L (73-393) H 04/29/19 14:15 Home Medications: Alendronate Sodium [Fosamax] 70 mg PO EVERY 7TH DAY 04/29/19 Amlodipine [Norvasc*] 10 mg PO DAILY 04/29/19 Atorvastatin Calcium [Lipitor*] 20 mg PO BEDTIME 04/29/19 Levothyroxine [Synthroid*] 25 mcg PO [id number] 04/29/19 Losartan Potassium [Cozaar*] 100 mg PO DAILY 04/29/19 Prasugrel HCl [Effient] 10 mg PO DAILY 04/29/19 hydroCHLOROthiazide [Hydrochlorothiazide*] 12.5 mg PO DAILY 04/29/19 traMADol HCL [Ultram*] 50 mg PO BEDTIME 04/29/19 Metoprolol Tartrate [Lopressor*] 50 mg PO BID #60 tab 04/30/19 New Medications: Metoprolol Tartrate [Lopressor*] 50 mg PO BID #60 tab Patient Discharge Instructions: 1. Recommend follow up with PCP in 1 week to follow up this hospitalization. 2. Patient presented with shortness of breath and headaches secondary to uncontrolled hypertension. Patient had been seen by Cardiology recently. Her medications have been adjusted. Cardiology had increase her hydralazine from 25 mg 3 times a day to 50 mg 3 times a day. Patient also takes Norvasc 10 mg daily, losartan 100 mg daily, metoprolol 50 mg 1 pill daily and hydrochlorothiazide 12.5 mg daily. Blood pressures were elevated in the ER. Patient was admitted for further evaluation and treatment. Plan of care was to decrease the hydralazine back to 25 mg 3 times a day and increase metoprolol to 50 mg 1 pill twice daily. Patient declined to take hydralazine. This was addressed with her lokie driver. Cardiology recommended to decrease hydralazine any increase metoprolol. Currently blood pressure has remained stable off hydralazine and with increased dose of metoprolol. Heart rate around 55-60. Will recommend to continue with Norvasc 10 mg daily, losartan 100 mg daily, hydrochlorothiazide 12.5 mg daily and increased dose of metoprolol 50 mg 1 pill twice daily. If her blood pressure remains elevated will recommend to continue with hydralazine 25 mg twice daily. This was recommended by Cardiology. Recommend to keep track of her blood pressures daily. Recommend to follow up with cardiology to further monitor and manage. Patient will need to monitor for elevated blood pressure and low heart rate. 3. Patient with hyperlipidemia. At discharge she will continue with Lipitor 20 mg daily. 4. Patient with CAD and carotid arterial disease. Patient will continue with Prasugrel 10 mg daily and aspirin 81 mg daily. 5. Patient with history of CVA. At discharge she will continue with her current medication. CT head unremarkable. 6. Patient with hypothyroidism. At discharge she will continue with her current dose of levothyroxine. This can be further monitor and manage by her PCP. 7. Patient with chronic renal disease stage IV. This has remained stable. Renal ultrasound reviewed. Patient is seen by nephrology as an outpatient. Recommend follow up with Nephrology to further monitor. Diet: AHA Activity: Fall precautions Time spent managing pt's care (in minutes): 55
[2019-04-30 09:55] VITALS: O2SAT 95
[2019-04-30 14:29] VITALS: TEMP 97.7
== END 2019-04-30 11:09 | disposition home or self-care (01) ==
LOC: ER 12:04 → ERHOLD 15:58 → 2ND 17:09
PROVIDERS: ADMIT Family Medicine; ATTEND Family Medicine
DX: R06.02 Shortness of breath (principal); R51 Headache; I12.9 Hypertensive chronic kidney disease with stage 1 through stage 4 chronic kidney disease, or unspecified chronic kidney disease; N18.4 Chronic kidney disease, stage 4 (severe); E78.5 Hyperlipidemia, unspecified; I25.10 Atherosclerotic heart disease of native coronary artery without angina pectoris; Z86.73 Personal history of transient ischemic attack (TIA), and cerebral infarction without residual deficits; E03.9 Hypothyroidism, unspecified; I77.89 Other specified disorders of arteries and arterioles
CPT/HCPCS: 96365; 96361; 93005; 87040 ×2; 87088; 85025; 87086; 80048 ×2; 36415; 83735 ×2; 82550 ×2; 85610; 80076; 84443; 87077; 87186; 81003; 84484 ×3; 82553 ×2; 84439; 83690; 83880; 87804 ×2; 70450; 71045; 76770; 99285; J0360; J1650; J0696; J7030; G0378 ×3

== ENCOUNTER 2020-08-11 15:42 | Emergency (ER) | payer MEDICARE, OTHER ==
--- OUTSIDE RECORDS SUMMARY | 2020-08-11 15:45 | XMS REPORT | Continuity of Care Document ---
:1935 Author Organization [facility] t Address [address] [place] [address] Care Team Providers Name Role Phone KHADAR Attending Clinician Unavailable KHADAR Admitting Clinician Unavailable Problems Condition Condition Condition Status Onset Resolution Last Treating Co mments Source Name Details Category Date Date Treatment Clinician Date HTN HTN Disease Active [facility] (hypertens (hypertens 3-04 Klaudia kes - ion) ion) 00:00: Medical 00 Center HLD HLD Disease Active [facility] (hyperlipi (hyperlipi 3-04 Klaudia kes - demia) demia) 00:00: Medical 00 Center CAD CAD Disease Active [address] [facility] (coronary (coronary 3-04 [facility] - artery artery 00:00: Medical disease) disease) 00 Center TIA TIA Disease Active [address] [facility] (transient (transient 3-03 Klaudia kes - ischemic ischemic 00:00: Medica l attack) attack) 00 Center Scoliosis Scoliosis Problem Active [facility] of lumbar of lumbar Luke [facility] - region due region due Me moria to to l degenerati degenerati Ou tpati ve disease ve disease en t of spine of spine Clinic s in adult in adult Presence Presence Problem Active [facility] right of right [facility] - artificial artificial Me moria hip joint hip joint l Outpati ent Clinics Right Right Problem Active [facility] sciatic sciatic [facility] - nerve pain nerve pain Me moria l Outpat[facility] ent Clinics Thoracogen Thoracogen Problem Active [facility] ic ic [facility] - scoliosis scoliosis Johnny agustín of of l thoracic thoracic Outpat i region region ent Clinics Pain of Pain of Problem Active [facility] right hip right hip Luke [facility] - joint pain joint pain Me moria l Outpati ent Clinics Allergies, Adverse Reactions, Alerts Allergy Allergy Status Severity Reaction(s) Onset Inactive Treating Comm ents Source Name Type Date Date Clinician Yoseph Pineda Active [facility] ty to 3-03 [facility] - adverse 00:00: Medical reaction 00 Warren s codeine Adverse Active Info Not [facility] Social History Social Habit Start Date Stop Date Quantity Comments Source Sex Assigned At [facility] Tobacco use and 2018-06-15 2018-06-15 Never used [facility] - exposure 00:00:00 00:00:00 [facility] Alcohol intake 2018-06-15 2018-06-15 Current drinker [facility] t [facility] - 00:00:00 00:00:00 of alcohol Medical Center (finding) History [facility] 2018-06-15 2018-06-[address] [facility] - Alcohol Frequency 00:00:00 00:00:00 Medical Center History [facility] 2018-06-15 2018-06-15 1 [facility] - Alcohol Std Drinks 00:00:00 00:00:00 Medica l Center History [facility] 2018-06-15 2018-06-15 [facility]:00 00:00:[address] Smoking Status Start Date Stop Date Source Never smoker [facility] Medications Ordered Filled Start Stop Current Ordering Indication Dosage Frequency Signature Comments Components Source Medication Medication Date Date Medication? Clinician (SIG) Name Name Tylenol 8 Tylenol 8 Yes Tucker [address] [facility] Hour Hour 7-25 [place] as needed [facility] - 00:00: Memoria 00 [facility] metoprolol Yes 50mg QD Take [address] (LOPRESSOR) 3-05 by mouth Luke s - 25 MG 20:29: daily. Medical tablet 27 Warren prasugrel Yes 10mg QD Take [address] (EFFIENT) 3-05 by mouth [facility] - 10 mg Tab 20:29: daily. Medica l tablet 27 Warren levothyroxi Yes 25ug Take [address] [facility] [address] ne 3-05 mcg by [facility] - (SYNTHROID, 20:29: mouth Medic al LEVOTHROID) 27 Every Center 25 MCG morning on tablet an empty stomach. losartan Yes 100mg QD Take [address] [facility] (COZAAR) 3-05 mg by [facility] - 100 MG 20:29: mouth Medical tablet 27 daily. Center Alendronate Alendronate Yes Tucker not [facility] Sodium Sodium [place] defined [facility] Metoprolol Metoprolol Yes Tucker not [facility] Succinate Succinate [place] defined [facility] Atorvastati Atorvastati Yes Tucker not [facility] n Calcium n Calcium [place] defined [facility] Losartan Losartan Yes Tucker not [facility] Potassium Potassium [place] defined [facility] Prasugrel Prasugrel Yes Tucker not [facility] HCl HCl [place] defined [facility] Aspirin Aspirin Yes Tucker not [facility] Hilliard defined [facility] Levothyroxi Levothyroxi Yes Tucker not [facility] ne Sodium ne Sodium [place] defined [facility] Procedures This patient has no known procedures. Plan of Care Planned Activity Planned Date Details Comments Source Future Scheduled 2019-12-15 INFLUENZA VACCINE (#1) [facility] - Test 00:00:00 [code = INFLUENZA Medical Ce nter VACCINE (#1)] Future Scheduled 2001-10-[address] [facility] - Test 00:00:00 WELLNESS (YEAR 2 or Medical Center FIRST YEAR if no IPPE) [code = MEDICARE ANNUAL WELLNESS (YEAR 2 or FIRST YEAR if no IPPE)] Future Scheduled 2000-10-14 PNEUMOCOCCAL 65+ YRS [facility] - Test 00:00:00 (1 of 1 - Medical Center [id number]) [code = PNEUMOCOCCAL 65+ YRS (1 of 1 - [id number])] Encounters Start End Encounter Admission Attending Care Care Encounter Source Date/Time Date/Time Type Type Clinicians Facility Department ID 2018-11-06 2018-11-06 Outpatient Marshal Alejandro [id number] [facility] 11:00:00 11:00[facility] Clinics 2018-10-09 2018-10-09 Outpatient Marshal Alejandro [id number] [facility] 10:30:00 10:30:00 [facility] Clinics Results Test Description Test Time Test Comments Results Result Comments Source CALCIUM, IONIZED 2018-06-17 06:48:00 Test Item Value Reference Range Interpretation Comme nts CALCIUM IONIZED (BEAKER) (test code = 698) 1.05 mmol/L 1.12-1.27 L PH, BLOOD (BEAKER) (test code = 1810) 7.43 [id number] 06:12:00 Test Item Value Reference Range Interpretation Comments PHOSPHORUS (BEAKER) (test code = 3.4 mg/dL 2.3-4.7 604) [id number] 06:12:00 Test Item Value Reference Range Interpretation Comments MAGNESIUM (BEAKER) (test code = 1.7 mg/dL 1.6-2.6 627) BASIC METABOLIC [id number] 06:12:00 Test Item Value Reference Range Interpretation Comments SODIUM (BEAKER) 142 meq/L 136-145 (test code = 381) POTASSIUM (BEAKER) 4.6 meq/L 3.5-5.1 (test code = 379) CHLORIDE (BEAKER) 112 meq/L 98-107 H (test code = 382) CO2 (BEAKER) (test 24 meq/L 22-29 code = 355) BLOOD UREA NITROGEN 35 mg/dL 7-21 H (BEAKER) (test code = 354) CREATININE (BEAKER) 1.55 mg/dL 0.57-1.25 H (test code = 358) GLUCOSE RANDOM 101 mg/dL 70-105 (BEAKER) (test code = 652) CALCIUM (BEAKER) 8.5 mg/dL 8.4-10.2 (test code = 697) EGFR (BEAKER) (test 32 mL/min/1.73 ESTIMA GREGORY GFR IS code = 1092) sq m NOT ACCURATE CREATININE CLEARANCE IN PREDICTING GLOMERULAR FILTRATION RATE . ESTIMATED GFR I S NOT APPLICABLE FOR DIALYSIS PATIEN TS. CBC W/PLT COUNT & AUTO [id number] 05:34:00 Test Item Value Reference Range Interpretation Comments WHITE BLOOD CELL COUNT (BEAKER) 5.1 K/ L 3.5-10.5 (test code = 775) RED BLOOD CELL COUNT (BEAKER) 3.43 M/ L 3.93-5.22 L (test code = 761) HEMOGLOBIN (BEAKER) (test code = 10.0 GM/DL 11.2-15.7 L 410) HEMATOCRIT (BEAKER) (test code = 31.7 % 34.1-44.9 L 411) MEAN CORPUSCULAR VOLUME (BEAKER) 92.4 fL 79.4-94.8 (test code = 753) MEAN CORPUSCULAR HEMOGLOBIN 29.2 pg 25.6-32.2 (BEAKER) (test code = 751) MEAN CORPUSCULAR HEMOGLOBIN CONC 31.5 GM/DL 32.2-35.5 L (BEAKER) (test code = 752) RED CELL DISTRIBUTION WIDTH 12.9 % 11.7-14.4 (BEAKER) (test code = 412) PLATELET COUNT (BEAKER) (test 156 K/CU MM 150-450 code = 756) MEAN PLATELET VOLUME (BEAKER) 11.6 fL 9.4-12.3 (test code = 754) NUCLEATED RED BLOOD CELLS 0 /100 WBC 0-0 (BEAKER) (test code = 413) NEUTROPHILS RELATIVE PERCENT 63 % (BEAKER) (test code = 429) LYMPHOCYTES RELATIVE PERCENT 24 % (BEAKER) (test code = 430) MONOCYTES RELATIVE PERCENT 10 % (BEAKER) (test code = 431) EOSINOPHILS RELATIVE PERCENT 2 % (BEAKER) (test code = 432) BASOPHILS RELATIVE PERCENT 1 % (BEAKER) (test code = 437) NEUTROPHILS ABSOLUTE COUNT 3.20 K/ L 1.56-6.13 (BEAKER) (test code = 670) LYMPHOCYTES ABSOLUTE COUNT 1.19 K/ L 1.18-3.74 (BEAKER) (test code = 414) MONOCYTES ABSOLUTE COUNT (BEAKER) 0.49 K/ L 0.24-0.36 H (test code = 415) EOSINOPHILS ABSOLUTE COUNT 0.12 K/ L 0.04-0.36 (BEAKER) (test code = 416) BASOPHILS ABSOLUTE COUNT (BEAKER) 0.03 K/ L 0.01-0.08 (test code = 417) IMMATURE GRANULOCYTES-RELATIVE 0 % 0-1 PERCENT (BEAKER) (test code = 2801) MR, MRA, BRAIN, WITHOUT [id number] 10:59:00Reason for exam:->Ischemic Stroke EvaluationFINAL REPORT MRA Head CLINICAL HISTORY: Stroke TECHNIQUE: MRA of the head utilizing 3-D sizh-bs-erumfs technique, with 3-D reconstructions. COMPARISON: None IMPRESSION: Allowing for mild motion degradation, there is no evidence for a [place] proximal branch vessel occlusion. Distal branch vessel occlusions cannot be excluded. Aneurysms cannot be excluded. MRA Neck CLINICAL HISTORY: Stroke TECHNIQUE: MRA of the neck utilizing 2-D and 3-D urvs-jf-mfcgqb technique, with 3-D reconstructions. COMPARISON: None IMPRESSION: Metallic shielding effect around the left carotid bifurcation is compatible with a stent. The left carotid artery is patent proximal and distal to the stent, but please note that in-stent stenosis cannot [...] MDReport Verified Date/Time: 06/16/2018 10:59:34 Reading Location: [address] Neuro Reading Room MR, MRA, NECK, WITHOUT IV [id number] 10:59:00Reason for exam:- >Ischemic Stroke EvaluationFINAL REPORT MRA Head CLINICAL HISTORY: Stroke TECHNIQUE: MRA of the head utilizing 3-D zchk-xm-tezsqm technique, with 3-D reconstructions. COMPARISON: None IMPRESSION: Allowing for mild motion degradation, there is no evidence for a [place] proximal branch vessel occlusion. Distal branch vessel occlusions cannot be excluded. Aneurysms cannot be excluded. MRA Neck CLINICAL HISTORY: Stroke TECHNIQUE: MRA of the neck utilizing 2-D and 3-D yhur-ef-bkhmgj technique, with 3-D reconstructions. COMPARISON: None IMPRESSION: Metallic shielding effect around the left carotid bifurcation is compatible with a stent. The left carotid artery is patent proximal and distal to the stent, but please note that in-stent stenosis cannot [...] MDReport Verified Date/Time: 06/16/2018 10:59:34 Reading Location: [address] Neuro Reading Room MR, BRAIN, WITHOUT [id number] 10:52:00Reason for exam:->Ischemic Stroke EvaluationFINAL REPORT MRI [...] chronic left occipital pole infarcts. There is mode rate periventricular and subcortical white matter T2 hyperintensity, [...] with generalized parenchymal volume loss. Signed: Arianna Rosas MDReport Verified Date/Time: 06/16/2018 10:52:22 Reading Location: [address] Neuro Reading Room HEMOGLOBIN [id number] 09:43:00 Test Item Value Reference Range Interpretation Comments HEMOGLOBIN A1C (BEAKER) (test code = 5.9 % 4.3-6.1 368) VITAMIN [id number] 06:40:00 Test Item Value Reference Range Interpretation Comments VITAMIN B12 (BEAKER) (test code = 375 pg/mL 213-816 774) TSH/FREE T4 IF [id number] 05:45:00 Test Item Value Reference Range Interpretation Comments THYROID STIMULATING HORMONE 4.44 uIU/mL 0.35-4.94 (BEAKER) (test code = 772) LIPID [id number] 05:27:00 Test Item Value Reference Range Interpretation Comments TRIGLYCERIDES (BEAKER) 73 mg/dL Speci men slightly (test code = 540) hemolyzed CHOLESTEROL (BEAKER) 114 mg/dL Specime n slightly (test code = 631) hemolyzed HDL CHOLESTEROL (BEAKER) 46 mg/dL (test code = 976) LDL CHOLESTEROL 53 mg/dL CALCULATED (NektedAKER) (test code = 633) Triglyceride Reference Range: Low Risk <150 Borderline 150-199 High Risk 200-499 Very High Risk >=500Cholesterol Reference Range: Low Risk <200 Borderline 200-239 High Risk >240HDL Cholesterol Reference Range: Low Risk >=60 High Risk <40LDL Cholesterol Reference Range: Optimal <100 Near Optimal 100-129 Borderline 130-159 High 160-189 Very High >=190
--- NOTE | 2020-08-11 17:38 | RAD REPORT ---
EXAM DESCRIPTION: RAD - Chest Pa And Lat (2 Views) - 08/11/2020 5:23 pm CLINICAL HISTORY: Cough;Congestion COMPARISON: Portable April 2019 TECHNIQUE: Frontal and lateral views of the chest were obtained. FINDINGS: The lungs are fibrotic as a baseline. Granulomas are seen in the right apex. The fibrotic pattern is not substantially different. Severity could mask early edema or infiltrate. Patient has se veral ill-defined nodular opacities in the mid and upper left lung field not clearly seen on comparis on. These could be small areas of infiltrate. Pleural plaquing can occasionally appear as a lung mass . Heart size is normal and central vasculature is within normal limits. No pleural effusion or pneumot horax seen. Degenerative and prominent scoliotic changes in the spine are not substantially differen t. Patient has accentuated kyphosis. No aortic abnormality. Dense aortic calcifications are present. IMPRESSION: Ill-defined nodular opacities in the lateral mid upper left lung field could be small in filtrates, scarring or small masses. Repeat imaging in 4-6 weeks following medical management of any acute respiratory process would be re commended to assure resolution. Patient's prominent baseline chronic interstitial pattern could mask early edema or infiltrate.
--- NOTE | 2020-08-11 17:58 | EDPHYS ---
Physician Documentation [facility] Name: Isadora Jeffery Age: 84 yrs Sex: Female : 1935 Arrival Date: 08/11/2020 Time: 15:49 Bed 7 Private MD: Brown Pina R ED Physician Ian Mary HPI: 08/11 18:21 This 84 yrs old Female presents to ER via Ambulatory with complaints of Chest kb Congestion. 18:21 The patient or guardian reports cough, that is intermittent, described as mild, with kb productive sputum, that is yellow. Onset: The symptoms/episode began/occurred 3 day(s) ago. Severity of symptoms: At their worst the symptoms were mild, in the emergency department the symptoms are unchanged. Modifying factors: The symptoms are alleviated by nothing, the symptoms are aggravated by nothing. Associated signs and symptoms: The patient has no apparent associated signs or symptoms. The patient has not experienced similar symptoms in the past. The patient has not recently seen a physician. Pt reports she had a sore throat a few days ago that went away, but now she has congestion in her chest causing a mild cough. Today she coughed up a small amount of yellow sputum. Denies fever, shortness of breath.. Historical: - Allergies: 16:10 Codeine; tw2 - Home Meds: 16:10 hydrocodone-acetaminophen 5-325 mg Oral tab 0.5 tab every 4-6 hours [Active]; tw2 alendronate 70 mg Oral tab 1 tab once wkly [Active]; amlodipine 10 mg tab 1 tab once daily [Active]; hydralazine 25 mg Oral tab 1 tab three times a day [Active]; atorvastatin 20 mg Oral tab 1 tab once daily [Active]; levothyroxine 25 mcg tab 1 tab once daily [Active]; metoprolol tartrate 50 mg Oral tab 1 tab once daily [Active]; losartan 100 mg Oral tab 1 tab once daily [Active]; cyanocobalamin (vitamin B-12) 1,000 mcg/mL injection soln 1 mL once moly [Active]; - PMHx: 16:10 CVA; Depression; Hyperlipidemia; Hypertension; tw2 - Immunization history:: Adult Immunizations. - Social history:: Smoking status: . ROS: 18:20 Constitutional: Negative for fever, chills, and weight loss, Cardiovascular: Negative kb for chest pain, palpitations, and edema, Abdomen/GI: Negative for abdominal pain, nausea, vomiting, diarrhea, and constipation, MS/Extremity: Negative for injury and deformity, Skin: Negative for injury, rash, and discoloration, Neuro: Negative for headache, weakness, numbness, tingling, and seizure. 18:20 Respiratory: Positive for cough, with yellow sputum, Negative for dyspnea on exertion, hemoptysis, orthopnea, pleurisy, shortness of breath, wheezing. Exam: 18:20 Constitutional: This is a well developed, well nourished patient who is awake, alert, kb and in no acute distress. Head/Face: Normocephalic, atraumatic. Cardiovascular: Regular rate and rhythm with a normal S1 and S2. No gallops, murmurs, or rubs. No pulse deficits. Respiratory: Respirations even and unlabored. No increased work of breathing, no retractions or nasal flaring. Abdomen/GI: Soft, non-tender. No distention Skin: Warm, dry with normal turgor. Normal color. MS/ Extremity: Pulses equal, no cyanosis. Neurovascular intact. Full, normal range of motion. Neuro: Awake and alert, GCS 15, oriented to person, place, time, and situation. Moves all extremities. Normal gait. Vital Signs: 16:05 BP 151 / 77; Pulse 68; Resp 18; Temp 97.9(TE); Pulse Ox 99% on R/A; Weight 46.27 kg tw2 (R); Height 5 ft. 7 in. (170.18 cm); 17:49 BP 131 / 88; Pulse 70; Resp 18; Pulse Ox 100% ; sv 16:05 Body Mass Index 15.98 (46.27 kg, 170.18 cm) tw2 MDM: 16:29 Patient medically screened. kb 18:20 Data reviewed: vital signs, nurses notes. Data interpreted: Pulse oximetry: on room air kb is 100 %. Interpretation: normal. Counseling: I had a detailed discussion with the patient and/or guardian regarding: the historical points, exam findings, and any diagnostic results supporting the discharge/admit diagnosis, radiology results, the need for outpatient follow up, a family practitioner, to return to the emergency department if symptoms worsen or persist or if there are any questions or concerns that arise at home. 08/11 16:36 Order name: Chest Pa And Lat (2 Views) XRAY; Complete Time: 17:43 kb Administered Medications: 18:05 Drug: Zithromax (azithromycin) 500 mg Route: PO; ss 18:05 Follow up: Response: Medication administered at discharge. Disposition: 08/12 08:02 Co-signature as Attending Physician, Ian Mary MD I agree with the assessment and kdr plan of care. Disposition: 08/11/20 17:58 Discharged to Home. Impression: Bronchitis, not specified as acute or chronic. - Condition is Stable. - Discharge Instructions: Acute Bronchitis, [id number], Community-Acquired Pneumonia, Adult, [id number]. - Prescriptions for Zithromax 500 mg Oral Tablet - take 1 tablet by ORAL route once daily for 5 days; 5 tablet. - Medication Reconciliation Form, Thank You Letter, Antibiotic Education, Prescription Opioid Use form. - Follow up: Emergency Department; When: As needed; Reason: Worsening of condition. Follow up: Private Physician; When: 2 - 3 days; Reason: Recheck today's complaints, Continuance of care, Re-evaluation by your physician. Signatures: Dispatcher [employer] EDOR Shefali Quiroga, MANAGER EMBALMER FUNERAL DIRECTOR-C MANAGER EMBALMER FUNERAL DIRECTOR-Ckb Ian Mayr MD MD [facility] Jessica Webber, LEWIS RN Zehra Espana RN RN tw2 Corrections: (The following items were deleted from the chart) 08/11 16:39 16:30 Chest Single View+RAD.RAD.BRZ ordered. [facility] 17:13 16:30 CORONAVIRUS+MR.LAB.BRZ ordered. [facility] 17:13 16:30 Influenza Screen (A \T\ B)+BA.LAB.BRZ ordered. [facility] EDOR 18:06 17:58 08/11/2020 17:58 Discharged to Home. Impression: Bronchitis, not specified as ss acute or chronic. Condition is Stable. Forms are Medication Reconciliation Form, Thank You Letter, Antibiotic Education, Prescription Opioid Use. Follow up: Emergency Department; When: As needed; Reason: Worsening of condition. Follow up: Private Physician; When: 2 - 3 days; Reason: Recheck today's complaints, Continuance of care, Re-evaluation by your physician. kb
--- NOTE | 2020-08-11 17:58 | ER ---
Nurse's Notes [facility] Name: Isadora Jeffery Age: 84 yrs Sex: Female : 1935 Arrival Date: 08/11/2020 Time: 15:49 Bed 7 Private MD: Brwon Pina R Diagnosis: Bronchitis, not specified as acute or chronic Presentation: 08/11 16:05 Chief complaint: Patient states: i woke up Saturday or Saturday morning and i had a sore tw2 throat, i got some throat things and it lasted a day or so and then it feels like it moved down in to my chest, i have been coughing up some stuff that is yellowish stuff. Coronavirus screen: cough unrelated to allergies, runny nose, Client presents with at least one sign or symptom that may indicate coronavirus-19. Standard/surgical mask placed on the client. Provider contacted for isolation considerations. Ebola Screen: Patient denies travel to an Ebola-affected area in the 21 days before illness onset. Initial Sepsis Screen: Does the patient meet any 2 criteria? No. Patient's initial sepsis screen is negative. Does the patient have a suspected source of infection? No. Patient's initial sepsis screen is negative. Risk Assessment: Do you want to hurt yourself or someone else? Patient reports no desire to harm self or others. Onset of symptoms was August 11, 2020. 16:05 Method Of Arrival: Ambulatory tw2 16:05 Acuity: ROMELIA 3 tw2 Triage Assessment: 16:05 General: Appears in no apparent distress. slender, well groomed, Behavior is calm, tw2 cooperative, appropriate for age. Pain: Denies pain. Respiratory: Reports shortness of breath on exertion cough that is productive. Historical: - Allergies: 16:10 Codeine; tw2 - Home Meds: 16:10 hydrocodone-acetaminophen 5-325 mg Oral tab 0.5 tab every 4-6 hours [Active]; tw2 alendronate 70 mg Oral tab 1 tab once wkly [Active]; amlodipine 10 mg tab 1 tab once daily [Active]; hydralazine 25 mg Oral tab 1 tab three times a day [Active]; atorvastatin 20 mg Oral tab 1 tab once daily [Active]; levothyroxine 25 mcg tab 1 tab once daily [Active]; metoprolol tartrate 50 mg Oral tab 1 tab once daily [Active]; losartan 100 mg Oral tab 1 tab once daily [Active]; cyanocobalamin (vitamin B-12) 1,000 mcg/mL injection soln 1 mL once moly [Active]; - PMHx: 16:10 CVA; Depression; Hyperlipidemia; Hypertension; tw2 - Immunization history:: Adult Immunizations. - Social history:: Smoking status: . Screenin:13 Abuse screen: Denies threats or abuse. Denies injuries from another. Nutritional sv screening: No deficits noted. Tuberculosis screening: No symptoms or risk factors identified. Fall Risk None identified. Assessment: 16:30 General: Appears in no apparent distress. Behavior is calm, cooperative. Pain: Pain hb currently is 3 out of 10 on a pain scale. Neuro: Level of Consciousness is awake, alert, obeys commands, Oriented to person, place, time, situation. Cardiovascular: Patient's skin is warm and dry. Respiratory: Reports cough that is Respiratory effort is even, unlabored, Respiratory pattern is regular, symmetrical. GI: No signs and/or symptoms were reported involving the gastrointestinal system. : No signs and/or symptoms were reported regarding the genitourinary system. EENT: Reports sore throat. Derm: Skin is pink, warm \T\ dry. Musculoskeletal: No signs and/or symptoms reported regarding the musculoskeletal system. 17:44 Reassessment: Patient appears in no apparent distress at this time. Patient and/or hb family updated on plan of care and expected duration. Pain level reassessed. Patient is alert, oriented x 3, equal unlabored respirations, skin warm/dry/pink. 18:06 Reassessment: Patient appears in no apparent distress at this time. No changes from sv previously documented assessment. Patient and/or family updated on plan of care and expected duration. Pain level reassessed. Patient is alert, oriented x 3, equal unlabored respirations, skin warm/dry/pink. Vital Signs: 16:05 BP 151 / 77; Pulse 68; Resp 18; Temp 97.9(TE); Pulse Ox 99% on R/A; Weight 46.27 kg tw2 (R); Height 5 ft. 7 in. (170.18 cm); 17:49 BP 131 / 88; Pulse 70; Resp 18; Pulse Ox 100% ; sv 16:05 Body Mass Index 15.98 (46.27 kg, 170.18 cm) tw2 ED Course: 15:49 Patient arrived in ED. mr 15:49 Brown Pina MD is Private Physician. mr 16:07 Triage completed. tw2 16:07 Arm band placed on. tw2 16:29 Shefali Quiroga FNP-C is [facility]. kb 16:29 Ian Mary MD is Attending Physician. kb 17:13 Chanelle Palacio, RN is Primary Nurse. sv 17:13 Patient moved to radiology via wheelchair. sv 17:13 Patient has correct armband on for positive identification. Bed in low position. Call sv light in reach. Pulse ox on. NIBP on. 17:22 Chest Pa And Lat (2 Views) XRAY In Process Unspecified. EDMS 18:06 No provider procedures requiring assistance completed. Patient did not have IV access ss during this emergency room visit. Administered Medications: 18:05 Drug: Zithromax (azithromycin) 500 mg Route: PO; ss 18:05 Follow up: Response: Medication administered at discharge. ss Outcome: 17:58 Discharge ordered by . kb 18:06 Discharged to home ambulatory. ss 18:06 Condition: good 18:06 Discharge instructions given to patient, Instructed on discharge instructions, follow up and referral plans. medication usage, Demonstrated understanding of instructions, follow-up care, Prescriptions given X 1. 18:06 Patient left the ED. ss Signatures: Dispatcher [employer] EDID Shefali Quiroga FNP-C TRANSPORTATION DEPARTMENT HEAD-Ckb Chanelle Palacio RN RN Isadora Crenshaw mr Jessica Webber RN RN Cadence Shahid RN RN hb Wise, Tara, LEWIS RN tw2
[2020-08-11 18:16] VITALS: BP 131/88; O2SAT 100
[2020-08-11 18:17] VITALS: TEMP 97.9
[2020-08-11] MEDS ORDERED: AZITHROMYCIN 250 MG TAB ONE (18:19)
== END 2020-08-11 18:06 | disposition home or self-care (01) ==
LOC: ER 15:42
DX: J40 Bronchitis, not specified as acute or chronic (principal); I10 Essential (primary) hypertension; E78.5 Hyperlipidemia, unspecified; F32.9 Major depressive disorder, single episode, unspecified; Z88.5 Allergy status to narcotic agent
CPT/HCPCS: 71046; 99284

== ENCOUNTER 2021-03-28 12:01 | Inpatient (IN) | payer OTHER ==
--- OUTSIDE RECORDS SUMMARY | 2021-03-28 12:03 | XMS REPORT | Continuity of Care Document ---
:1935 Author Organization [facility] t Address [address] [place] [address] Care Team Providers Name Role Phone Umu WILL, L Attending Clinician MARINO DYER Attending Clinician Unavailable KHADAR Attending Clinician Unavailable KHADAR Admitting Clinician Unavailable Payers Payer Name Policy Type Policy Number Effective Date Expiration Date S ource Problems Condition Condition Condition Status Onset Resolution Last Treating Co mments Source Name Details Category Date Date Treatment Clinician Date HTN HTN Disease Active [facility] (hypertens (hypertens 3-04 Klaudia kes - ion) ion) 00:00: Medical 00 Center HLD HLD Disease Active [facility] (hyperlipi (hyperlipi 3-04 Klaudia kes - demia) demia) 00:00: Medical 00 Center CAD CAD Disease Active [facility] (coronary (coronary 3-04 [facility] - artery artery 00:00: Medical disease) disease) 00 Center TIA TIA Disease Active 2018- [facility] (transient (transient 3-03 Klaudia kes - ischemic ischemic 00:00: Medica l attack) attack) 00 Center Hip Hip Disease Active 2015-04 [facility] fracture fracture 0-10 ity of 00:00: [place] [address] Medical Branch Femur Femur Disease Active 2015-04 Univers fracture, fracture, 0-08 ity of right right 00:00: [place] [address] Medical Branch Scoliosis Scoliosis Problem Active [facility] of [...] ents Source Name Type Date Date Clinician Codeine Propensi Active [facility] ty to 3-03 [facility] - adverse 00:00: Medical reaction 00 [place] CODEINE DRUG Active Hallucinates 2015-04 Uni vers INGREDI 0-08 ity of 00:00: [place] 00 Medical Branch Codeine Propensi Active Hallucinatio 2015-04 U nivers ty to ns 0-08 ity of adverse 00:00: [place] reaction 00 Medical s Branch codeine Adverse Active Info Not [facility] Reaction Available [facility] Social History Social Habit Start Date Stop Date Quantity Comments Source History [facility] - Alcohol Comment Medical C enter History [facility] 2018-06-16 2018-06-[address] [facility] - Alcohol Frequency 00:00:00 00:00:00 Medical Center History [facility] 2018-06-16 2018-06-[address] [facility] - Alcohol Std Drinks 00:00:00 00:00:00 Medica l Center History [facility] 2018-06-16 2018-06-[address] [facility] - Alcohol Binge 00:00:00 00:00:[address] Tobacco use and 2018-06-15 2018-06-[address] [facility] [address] Klaudia kes - exposure 00:00:00 00:00:00 Medical Center Alcohol intake 2017-02-28 2017-02-28 [facility] 00:00:00 00:00:00 Medical Branch Sex Ass[birth year] [facility] 00:00:00 00:00:00 Medical Branch Smoking Status Start Date Stop Date Source Never smoker [facility] Medical Branch Medications Ordered Filled Start Stop Current Ordering Indication Dosage Frequency Signature Comments Components Source Medication Medication Date Date Medication? Clinician (SIG) Name Name Tylenol 8 Tylenol 8 Yes [place] [address] [facility] Hour Hour 7-25 [place] as needed [facility] metop[facility]ol Yes 50mg QD Take [address] (LOPRESSOR) 3-05 by mouth Luke [facility] - 25 MG 20:29: daily. Medical tablet 27 [place] prasugr Yes 10mg QD Take [address] (EFFIENT) 3-05 by mouth [facility] - 10 mg Tab 20:29: daily. Medica l tablet 27 [place] levothyroxi Yes 25ug Take [address] ne 3-05 mcg by [facility]ukes - (SYNTHROID, 20:29: mouth Medic al LEVOTHROID) 27 Every Center 25 MCG morning on tablet an empty stomach. losartan Yes 100mg QD Take [address] [facility] (COZAAR) 3-05 mg by [facility] - 100 MG 20:29: mouth Medical tablet 27 daily. [place] metoprolol Yes 50mg QD Take [address] (LOPRESSOR) 3-05 by mouth Luke [facility] - 25 MG 20:29: daily. Medical tablet 27 [place] prasugr Yes 10mg QD Take [address] (EFFIENT) 3-05 by mouth [facility] - 10 mg Tab 20:29: daily. Medica l tablet 27 [place] levothyroxi Yes 25ug Take [address] ne 3-05 mcg by [facility]ukes - (SYNTHROID, 20:29: mouth Medic al LEVOTHROID) 27 Every Center 25 MCG morning on tablet an empty stomach. losartan Yes 100mg QD Take [address] (COZAAR) 3-05 mg by [facility] - 100 MG 20:29: mouth Medical tablet 27 daily. [place] metoprolol Yes 50mg QD Take [address] (LOPRESSOR) 3-05 by mouth Luke [facility] - 25 MG 20:29: daily. Medical tablet 27 [place] prasugrel Yes 10mg QD Take [address] (EFFIENT) 3-05 by mouth [facility] - 10 mg Tab 20:29: daily. Medica l tablet 27 [place] levothyroxi Yes 25ug Take [address] ne 3-05 mcg by Lukes - (SYNTHROID, 20:29: mouth Medic al LEVOTHROID) 27 Every Center 25 MCG morning on tablet an empty stomach. losartan 2019-0 Yes 100mg QD Take [address] (COZAAR) 3-05 mg by [facility]ukes - 100 MG 20:29: mouth Medical tablet 27 daily. Center metoprolol 20190 Yes 50mg QD Take [address] (LOPRESSOR) 3-05 by mouth Luke [facility] - 25 MG 20:29: daily. Medical tablet 27 [place] prasugrel 20190 Yes 10mg QD Take [address] (EFFIENT) 3-05 by mouth [facility] - 10 mg Tab 20:29: daily. Medica l tablet 27 [place] levothyroxi 0 Yes 25ug Take [address] ne 3-05 mcg by [facility]ukes - (SYNTHROID, 20:29: mouth Medic al LEVOTHROID) 27 Every Center 25 MCG morning on tablet an empty stomach. losartan 2018- Yes 100mg QD Take [address] (COZAAR) 3-05 mg by [facility]ukes - 100 MG 20:29: mouth Medical tablet 27 daily. [place] metoprolol 0 Yes 50mg QD Take [address] (LOPRESSOR) 3-05 by mouth [facility] - 25 MG 20:29: daily. Medical tablet 27 [place] prasugr Yes 10mg QD Take [address] (EFFIENT) 3-05 by mouth [facility] - 10 mg Tab 20:29: daily. Medica l tablet 27 [place] levothyroxi 0 Yes 25ug Take [address] ne 3-05 mcg by [facility]ukes - (SYNTHROID, 20:29: mouth Medic al LEVOTHROID) 27 Every Center 25 MCG morning on tablet an empty stomach. losartan 2018-0 Yes 100mg QD Take [address] (COZAAR) 3-05 mg by [facility]ukes - 100 MG 20:29: mouth Medical tablet 27 daily. [place] metoprolol 2019-0 Yes 50mg QD Take [address] (LOPRESSOR) 3-05 by mouth Luke [facility] - 25 MG 20:29: daily. Medical tablet 27 [place] prasugrel 0 Yes 10mg QD Take [address] (EFFIENT) 3-05 by mouth [facility] - 10 mg Tab 20:29: daily. Medica l tablet 27 [place] levothyroxi 0 Yes 25ug Take [address] ne 3-05 mcg by Lukes - (SYNTHROID, 20:29: mouth Medic al LEVOTHROID) 27 Every Center 25 MCG morning on tablet an empty stomach. losartan Yes 100mg QD Take [address] (COZAAR) 3-05 mg by [facility] - 100 MG 20:29: mouth Medical tablet 27 daily. Center pentazocine 2015-04 Yes 1{tbl} Take 1 Un wilian -naloxone 0-27 tablet by ity o f (TALWIN NX) 00:00: mouth [place] 50-0.5 mg 00 every 6 Medical tablet (six) Branch hours as needed for Pain. metoprolol 2015-04 Yes 50mg Take 50 mg U nivers succinate 0-19 by mouth ity of XL (TOPROL 18:56: daily. [place] XL) 50 mg 53 Medical 24 hr Branch tablet levothyroxi 2015-04 Yes 25ug Take 25 Uni vers ne 0-19 mcg by ity of (SYNTHROID) 18:56: mouth [place] 25 mcg 53 every Medical tablet morning. Branch cholecalcif 2015-04 Yes 1000U Take 1,000 Univers robson, 0-19 Units by ity of vitamin D3, 18:56: mouth [place] (VITAMIN 53 daily. Medical D3) 1,000 Branch unit tablet RANOLAZINE 2015-04 Yes 500mg Take 500 Un wilian (RANEXA 0-19 mg by ity of ORAL) 18:56: mouth [place] 53 daily. Medical Branch atorvastati 2015-04 Yes 20mg Take 20 mg Univers n (LIPITOR) 0-19 by mouth ity of 20 mg 18:56: at [place] tablet 53 bedtime. Medical Branch SERTraline 2015-04 Yes 100mg Take 100 Un wilian (ZOLOFT) 0-19 mg by ity of 100 mg 18:56: mouth [place] tablet 53 daily. Medical Branch traMADOL 2015-04 Yes 50mg Take 1 Univers (ULTRAM) 50 0-14 tablet by ity of mg tablet 00:00: mouth [place] 00 every 4 Medical (four) Branch hours as needed for Pain (scale 4-6) or Pain (scale 7-10). alendronate Yes TAKE 1 Univ ers (FOSAMAX) 9-22 TABLET ity of 70 mg 00:00: EVERY [place] tablet 00 SATURDAY Medical Branch Atorvastati Atorvastati Yes Tucker not [facility] [...] [facility] Alendronate Alendronate Yes [facility] not [facility] Sodium Sodium [place] defined [facility] Metoprolol Metoprolol Yes Tucker not [facility] Succinate Succinate [place] defined [facility] Procedures This patient has no known procedures. Plan of Care Planned Activity Planned Date Details Comments Source Future Scheduled 2020-12-14 INFLUENZA VACCINE (#1) [facility] Test 00:00:00 [code = INFLUENZA Medical Ce nter VACCINE (#1)] Future Scheduled 2020-12-14 INFLUENZA VACCINE (#1) [facility] Test 00:00:00 [code = INFLUENZA Medical Ce nter VACCINE (#1)] Future Scheduled 2020-12-14 INFLUENZA VACCINE (#1) [facility] Test 00:00:00 [code = INFLUENZA Medical Ce nter VACCINE (#1)] Future Scheduled 2020-04-[address] [facility] - Test 00:00:00 (12+) [code = Medical Center DEPRESSION SCREENING (12+)] Future Scheduled 2020-04-15 FALLS [address]IS[address] SCREENING [facility] - Test 00:00:00 [code = FALLS RISK Medical C enter SCREENING] Future Scheduled 2020-04-[address] [facility] - Test 00:00:00 (12+) [code = Medical Center DEPRESSION SCREENING (12+)] Future Scheduled 2020-04-15 F[address] [address]IS[address] SCREENING [facility] - Test 00:00:00 [code = FALLS RISK Medical C enter SCREENING] Future Scheduled 2020-04-[address] [facility] - Test 00:00:00 (12+) [code = Medical Center DEPRESSION SCREENING (12+)] Future Scheduled 2020-04-15 F[address]S RISK SCREENING [facility] - Test 00:00:00 [code = FALLS RISK Medical C enter SCREENING] Future Scheduled 2019-12-15 INFLUENZA VACCINE (#1) [facility] Test 00:00:00 [code = INFLUENZA Medical Ce nter VACCINE (#1)] Future Scheduled 2019-12-15 INFLUENZA VACCINE (#1) [facility] Test 00:00:00 [code = INFLUENZA Medical Ce nter VACCINE (#1)] Future Scheduled 2019-12-15 INFLUENZA VACCINE (#1) [facility] Test 00:00:00 [code = INFLUENZA Medical Ce nter VACCINE (#1)] Future Scheduled 2001-10-[address] [facility] - Test 00:00:00 WELLNESS (YEAR 2 or Medical Center FIRST YEAR if no IPPE) [code = MEDICARE ANNUAL WELLNESS (YEAR 2 or FIRST YEAR if no IPPE)] Future Scheduled 2001-10-[address] [facility] - Test 00:00:00 WELLNESS (YEAR 2 or Medical Center FIRST YEAR if no IPPE) [code = MEDICARE ANNUAL WELLNESS (YEAR 2 or FIRST YEAR if no IPPE)] Future Scheduled 2001-10-[address] [facility] - Test 00:00:00 WELLNESS (YEAR 2 or Medical Center FIRST YEAR if no IPPE) [code = MEDICARE ANNUAL WELLNESS (YEAR 2 or FIRST YEAR if no IPPE)] Future Scheduled 2001-10-[address] [facility] - Test 00:00:00 WELLNESS (YEAR 2 or Medical Center FIRST YEAR if no IPPE) [code = MEDICARE ANNUAL WELLNESS (YEAR 2 or FIRST YEAR if no IPPE)] Future Scheduled 2001-10-[address] [facility] - Test 00:00:00 WELLNESS (YEAR 2 or Medical Center FIRST YEAR if no IPPE) [code = MEDICARE ANNUAL WELLNESS (YEAR 2 or FIRST YEAR if no IPPE)] Future Scheduled 2001-10-[address] [facility] - Test 00:00:00 WELLNESS (YEAR 2 or Medical Center FIRST YEAR if no IPPE) [code = MEDICARE ANNUAL WELLNESS (YEAR 2 or FIRST YEAR if no IPPE)] Future Scheduled 2000-10-14 PNEUMOCOCCAL 65+ YRS [facility] - Test 00:00:00 (1 of 1 - Medical Center [id number] PCV13) [code = PNEUMOCOCCAL 65+ YRS (1 of 1 - [id number] PCV13)] Future Scheduled 2000-10-14 PNEUMOCOCCAL 65+ [facility] - Test 00:00:00 (1 of 1 - Medical Center [id number] PCV13) [code = PNEUMOCOCCAL 65+ YRS (1 of 1 - [id number]_Hladjdd PCV13)] Future Scheduled 2000-10-14 PNEUMOCOCCAL 65+ Y[facility] - Test 00:00:00 (1 of 1 - [facility] Center [id number] PCV13) [code = PNEUMOCOCCAL 65+ YRS (1 of 1 - [id number]_Ncrigpw PCV13)] Future Scheduled 2000-10-14 PNEUMOCOCCAL 65+ Y[facility] - Test 00:00:00 (1 of 1 - [facility] Center [id number]_Rnlouww PCV13) [code = PNEUMOCOCCAL 65+ YRS (1 of 1 - [id number]_Ujmndwq PCV13)] Future Scheduled 2000-10-14 PNEUMOCOCCAL 65+ Y[facility] - Test 00:00:00 (1 of 1 [facility] Center [id number] PCV13) [code = PNEUMOCOCCAL 65+ YRS (1 of 1 - XPOW52_Aravuak PCV13)] Future Scheduled 2000-10-14 PNEUMOCOCCAL 65+ Y[facility] - Test 00:00:00 (1 of 1 - [facility] Center [id number]_Osfabfg PCV13) [code = PNEUMOCOCCAL 65+ YRS (1 of 1 - KILZ53_Mcxfzlo PCV13)] Future Scheduled 1985-10-14 SHINGLES VACCINES ([address] [facility] - Test 00:00:00 of 2) [code = SHINGLES Medic al Center VACCINES (1 of 2)] Future Scheduled 1985-10-14 SHINGLES VACCINES ([address] [facility] - Test 00:00:00 of 2) [code = SHINGLES Medic al Center VACCINES (1 of 2)] Future Scheduled 1985-10-14 SHINGLES VACCINES ([address] [facility] - Test 00:00:00 of 2) [code = SHINGLES Medic al Center VACCINES (1 of 2)] Future Scheduled 1954-10-14 DTAP/TDAP/TD VACCINES [facility] Test 00:00:00 (1 - Tdap) [code = Medical C enter DTAP/TDAP/TD VACCINES (1 - Tdap)] Future Scheduled 1954-10-14 DTAP/TDAP/TD VACCINES [facility] Test 00:00:00 (1 - Tdap) [code = Medical C enter DTAP/TDAP/TD VACCINES (1 - Tdap)] Future Scheduled 1954-10-14 DTAP/TDAP/TD VACCINES [facility] Test 00:00:00 (1 - Tdap) [code = Medical C enter DTAP/TDAP/TD VACCINES (1 - Tdap)] Future Scheduled 1947 COVID-19 VACCINE (1) [facility] Test 00:00:00 [code = COVID-[address] VACCINE (1)] Future Scheduled 1947 COVID-19 VACCINE (1) [facility] Test 00:00:00 [code = COVID-[address] VACCINE (1)] Future Scheduled 1947 COVID-19 VACCINE (1) [facility] Test 00:00:00 [code = COVID-[address] VACCINE (1)] Encounters Start End Encounter Admission Attending Care Care Encounter Source Date/Time Date/Time Type Type Clinicians Facility Department ID 2020-10-03 2020-10-03 [facility]phone [facility] [id number] Univers 00:00:00 00:00:00 [facility] [id number] it y of Surgical [id number] Hi as Specialti [id number] Ga dical [address] 2020-04-29 2020-04-29 Outpatient Ananda DYER [facility] [id number] N-20 Univers 15:00:00 15:00:00 YESIKA [id number] [facility] 2020-04-29 2020-04-29 Outpatient Ananda DYER [facility] [id number] Univers 15:00:00 15:00:00 YESIKA [facility] 2018-11-06 2018-11-06 Outpatient Marshal Alejandro [id number] 11:00:00 11:00[facility] 2018-10-09 2018-10-09 Outpatient Marshal Alejandro [id number] 10:30:00 10:30:00 [facility] Results Test Description Test Time Test Comments Results Result Comments Source CALCIUM, IONIZED 2018-06-17 06:48:00 Test Item Value Reference Range Interpretation Comme nts CALCIUM IONIZED (BEAKER) (test code = 698) 1.05 mmol/L 1.12-1.27 L PH, BLOOD (BEAKER) (test code = 1810) 7.43 [id number] 06:12:00 Test Item Value Reference Range Interpretation Comments PHOSPHORUS (BEAKER) (test code = 3.4 mg/dL 2.3-4.7 604) [id number] 06:12:00 Test Item Value Reference Range Interpretation Comments MAGNESIUM (BEAKER) (test code = 1.7 mg/dL 1.6-2.6 627) BASIC METABOLIC [id number] 06:12:00 Test Item Value Reference Range Interpretation [...] PATIEN TS. CBC W/PLT COUNT & AUTO [id number] 05:34:00 Test Item Value Reference Range Interpretation [...] code = 2801) MR, MRA, BRAIN, WITHOUT [id number] 10:59:00Reason for exam:->Ischemic Stroke EvaluationFINAL REPORT MRA Head CLINICAL HISTORY: Stroke TECHNIQUE: MRA of the head utilizing 3-D rhrp-vh-isvdnk technique, with 3-D reconstructions. COMPARISON: None IMPRESSION: Allowing for mild motion degradation, there is no evidence for a [place] proximal branch vessel occlusion. Distal branch vessel occlusions cannot be excluded. Aneurysms cannot be excluded. MRA Neck CLINICAL HISTORY: Stroke TECHNIQUE: MRA of the neck utilizing 2-D and 3-D nzsb-au-fxckrd technique, with 3-D reconstructions. COMPARISON: None IMPRESSION: [...] MDReport Verified Date/Time: 06/16/2018 10:59:34 Reading Location: [address] Neuro Reading Room MR, MRA, NECK, WITHOUT IV [id number] 10:59:00Reason for exam:- >Ischemic Stroke EvaluationFINAL REPORT MRA Head CLINICAL HISTORY: Stroke TECHNIQUE: MRA of the head utilizing 3-D kaoh-vo-fhgtzt technique, with 3-D reconstructions. COMPARISON: None IMPRESSION: Allowing for mild motion degradation, there is no evidence for a [place] proximal branch vessel occlusion. Distal branch vessel occlusions cannot be excluded. Aneurysms cannot be excluded. MRA Neck CLINICAL HISTORY: Stroke TECHNIQUE: MRA of the neck utilizing 2-D and 3-D wbzh-mo-ntunre technique, with 3-D reconstructions. COMPARISON: None IMPRESSION: [...] by cervical muscular branches. Signed: Arianna Rosas MDRcorwinort Verified Date/Time: 06/16/2018 10:59:34 Reading Location: [address] Neuro Reading Room MR, BRAIN, WITHOUT [id number] 10:52:00Reason for exam:->Ischemic Stroke EvaluationFINAL REPORT MRI [...] generalized parenchymal volume loss. Signed: Arianna Rosas MDRcorwinort Verified Date/Time: 06/16/2018 10:52:22 Reading Location: [address] Neuro Reading Room HEMOGLOBIN [id number] 09:43:00 Test Item Value Reference Range Interpretation Comments HEMOGLOBIN A1C (BEAKER) (test code = 5.9 % 4.3-6.1 368) VITAMIN [id number] 06:40:00 Test Item Value Reference Range Interpretation Comments VITAMIN B12 (BEAKER) (test code = 375 pg/mL 213-174 904) TSH/FREE T4 IF [id number] 05:45:00 Test Item Value Reference Range Interpretation Comments THYROID STIMULATING HORMONE 4.44 uIU/mL 0.35-4.94 (BEAKER) (test code = 772) LIPID [id number] 05:27:00 Test Item Value Reference Range Interpretation Comments TRIGLYCERIDES (BEAKER) 73 mg/dL Speci men slightly (test code = 540) hemolyzed CHOLESTEROL (BEAKER) 114 mg/dL Specime n slightly (test code = 631) hemolyzed HDL CHOLESTEROL (BEAKER) 46 mg/dL (test code = 976) LDL CHOLESTEROL 53 mg/dL CALCULATED (BEAKER) (test code = 633) Triglyceride Reference Range: Low Risk <150 Borderline 150-199 High Risk 200-499 Very High Risk >=500Cholesterol Reference Range: Low Risk <200 Borderline 200-239 High Risk >240HDL Cholesterol Reference Range: Low Risk >=60 High Risk <40LDL Cholesterol Reference Range: Optimal <100 Near Optimal 100-129 Borderline 130-159 High 160-189 Very High >=190
[2021-03-28] MEDS ORDERED: METOPROLOL TARTRATE 5 MG/5 ML INJ IV ONE ×3 (12:23→15:19)
[2021-03-28] MEDS ORDERED: METOPROLOL TAR 25 MG TAB ONE (12:23)
[2021-03-28 12:38] LABS: Absolute Lymphocytes (CBC) 1.8 K/uL (0.7-4.9); Basophils % 0.7 % (0-1.3); Hematocrit 28.1 % (36.0-45.0); Lymphocytes % 18.1 % (15.3-44.8); MPV 7.8 fL (7.6-11.3); RBC Red Blood Cell Count 3.15 M/uL (3.86-4.86)
--- NOTE | 2021-03-28 12:49 | RAD REPORT ---
EXAM DESCRIPTION: RAD - Chest Single View - 03/28/2021 12:35 pm CLINICAL HISTORY: SOB Chest pain. COMPARISON: Chest Pa And Lat (2 Views) dated 09/19/2020; Chest Pa And Lat (2 Views) dated 08/11/2020; C hest Single View dated 04/29/2019; Chest Single View dated 06/15/2018 FINDINGS: Portable technique limits examination quality. Moderate lower lobe consolidations are present, greater on the left with small pleural effusions. Thi s likely represents infiltrate/pneumonia. The heart is upper limit normal in size. Probable hiatal he rnia seen. IMPRESSION: Bibasilar lung infiltrates are present suspicious for pneumonia.
[2021-03-28 12:53] LABS: Protime INR 0.95
[2021-03-28 13:17] LABS: ALT/SGPT 26 U/L (12-78); AST/SGOT 32 U/L (15-37); Albumin 2.6 g/dL (3.4-5.0); Alkaline Phosphatase 85 U/L (45-117); BUN Blood Urea Nitrogen 93 mg/dL (7-18); Bicarbonate 20 mmol/L (21-32); Bilirubin Direct 0.3 mg/dL (0-0.2); Bilirubin Total 0.6 mg/dL (0.2-1.0); Glucose Level 118 mg/dL (74-106); Magnesium 1.6 mg/dL (1.8-2.4); NT PRO-BNP 48427 pg/mL (<450); Potassium 5.3 mmol/L (3.5-5.1); Protein, Total 6.5 g/dL (6.4-8.2); Sodium Level 143 mmol/L (136-145); Troponin (Emerg Dept Use Only) < 0.02 ng/mL (0.0-0.045)
--- NOTE | 2021-03-28 14:02 | RAD REPORT ---
EXAM DESCRIPTION: CT - Chest Abd Pelvis Wo Con - 03/28/2021 1:43 pm CLINICAL HISTORY: Chest and abdomen pain. tierney COMPARISON: No comparisons TECHNIQUE: A limited noncontrast study was performed. All CT scans are performed using dose optimization technique as appropriate and may include automated exposure control or mA/KV adjustment according to patient size. FINDINGS: 9 mm noncalcified pulmonary nodule is seen in the anterior right upper lobe. Small calcifi ed nodule seen in the right upper lobe laterally as well. [place] 23 x 14 mm mass is present in the po sterior left upper lobe (image 32/130).Moderate opacities are present in both lung bases which may re present atelectasis or infiltrate/ pneumonia.Moderate bilateral pleural effusions are seen.No intrath oracic adenopathy. The liver demonstrates no focal mass or biliary dilatation. Cholecystectomy clips. The spleen, pancre as, adrenal glands and kidneys are within normal limits. Mild atrophy of the left kidney. No bowel obstruction, free air, free fluid or abscess. The appendix is not identified as a discrete s tructure, however, no secondary findings of appendicitis are identified. No pathologic lymphadenopa thy in the abdomen or pelvis. Heavy aortoiliac atherosclerosis. Prominent lumbar degenerative changes are present. Moderate levoscoliosis. IMPRESSION: Moderate bibasilar lung opacities are seen with bilateral pleural effusions favored to r epresent infection/ pneumonia. Nonspecific nodules in both lungs, including a sizable 23 mm mass in the posterior left upper lobe. P ET-CT follow-up would be suggested to further evaluate this lesion.
--- NOTE | 2021-03-28 14:11 | ER ---
Nurse's Notes [facility] Name: Isadora Jeffery Age: 85 yrs Sex: Female : 1935 Arrival Date: 03/28/2021 Time: 12:03 Bed 2 Private MD: Diagnosis: Acute Kidney Injury;Pneumonia Presentation: 03/28 12:03 Chief complaint: Patient states: SOB that began last night. BP en route was 230/111. Pt ss reports she has not taken her BP medication today. Coronavirus screen: Client presents with at least one sign or symptom that may indicate coronavirus-19. Standard/surgical mask placed on the client. Provider contacted for isolation considerations. Ebola Screen: Patient denies exposure to infectious person. Patient denies travel to an Ebola-affected area in the 21 days before illness onset. Initial Sepsis Screen: Does the patient meet any 2 criteria? No. Patient's initial sepsis screen is negative. Does the patient have a suspected source of infection? No. Patient's initial sepsis screen is negative. Risk Assessment: Do you want to hurt yourself or someone else? Patient reports no desire to harm self or others. Onset of symptoms was March 27, 2021. 12:03 Method Of Arrival: EMS: [facility] 12:03 Acuity: ROMELIA 2 ss Triage Assessment: 12:37 General: Appears in no apparent distress. uncomfortable, Behavior is calm, cooperative, ll3 anxious. Pain: Denies pain. Neuro: Level of Consciousness is awake, alert, obeys commands, Oriented to person, place, time, situation, Speech is normal, Facial symmetry appears normal. Cardiovascular: Patient's skin is warm and dry. Respiratory: the patient has severe shortness of breath. Respiratory: Reports shortness of breath at rest since Last night cough that is labored breathing Airway is patent Respiratory effort is even, labored, Respiratory pattern is regular, symmetrical, Breath sounds with wheezes bilaterally. Onset: The symptoms/episode began/occurred Last night. Derm: Skin is pink, warm \T\ dry. Historical: - Allergies: 12:06 Codeine; ss - Home Meds: 12:49 amlodipine 10 mg tab 1 tab once daily [Active]; atorvastatin 20 mg Oral tab 1 tab once ll3 daily [Active]; cyanocobalamin (vitamin B-12) 1,000 mcg/mL injection soln 1 mL once moly [Active]; hydrocodone-acetaminophen 5-325 mg Oral tab 0.5 tab every 4-6 hours [Active]; levothyroxine 25 mcg tab 1 tab once daily [Active]; metoprolol tartrate 50 mg Oral tab 1 tab once daily [Active]; prasugrel 10 mg oral tab [Active]; mirtazapine 15 mg Oral tab nightly [Active]; furosemide 20 mg Oral tab 2 times per day [Active]; aspirin 81 mg Oral tab daily [Active]; - PMHx: 12:06 CVA; Depression; Hyperlipidemia; Hypertension; ss - Immunization history:: Client reports receiving the 2nd dose of the Covid vaccine. - Social history:: Smoking status: Patient denies any tobacco usage or history of. Screenin:29 Abuse screen: Denies threats or abuse. Nutritional screening: No deficits noted. ll3 Tuberculosis screening: No symptoms or risk factors identified. Fall Risk IV access (20 points). Mental Status- Oriented to own ability (0 pts). Total Boyd Fall Scale indicates No Risk (0-24 pts). Assessment: 12:29 General: Appears in no apparent distress. uncomfortable, Behavior is cooperative, ll3 anxious. Pain: Denies pain. Neuro: Level of Consciousness is awake, alert, obeys commands, Oriented to person, place, time, situation, Speech is normal, Facial symmetry appears normal. Cardiovascular: Rhythm is sinus rhythm. Respiratory: Airway is patent Respiratory effort is even, unlabored, Respiratory pattern is symmetrical, hyperventilation Breath sounds with wheezes bilaterally. Onset: The symptoms/episode began/occurred yesterday. Derm: Skin is pink, warm \T\ dry. 13:25 Reassessment: Patient appears in no apparent distress at this time. No changes from ll3 previously documented assessment. Patient and/or family updated on plan of care and expected duration. Pain level reassessed. Patient is alert, oriented x 3, equal unlabored respirations, skin warm/dry/pink. 14:45 Reassessment: Right FA IV infiltrated, IV dc'd, intact, pressure drsg applied. jl7 14:50 Reassessment: Patient appears in no apparent distress at this time. No changes from ll3 previously documented assessment. Patient and/or family updated on plan of care and expected duration. Pain level reassessed. Patient is alert, oriented x 3, equal unlabored respirations, skin warm/dry/pink. 16:46 Reassessment: Patient appears in no apparent distress at this time. Patient and/or jl7 family updated on plan of care and expected duration. Pain level reassessed. Patient is alert, oriented x 3, equal unlabored respirations, skin warm/dry/pink. Patient states symptoms have improved. Vital Signs: 12:29 BP 214 / 112; Pulse 104; Resp 15; Temp 98.4; Pulse Ox 96% ; Weight 46.27 kg (R); Height ll3 5 ft. 7 in. (170.18 cm) (R); Pain 0/10; 13:26 BP 210 / 67; Pulse 83; Resp 21; Pulse Ox 100% on R/A; ll3 14:30 BP 213 / 71; Pulse 72; Resp 22; Pulse Ox 94% on R/A; ll3 15:00 BP 215 / 71; Pulse 73; Resp 20; Pulse Ox 94% ; jl7 15:30 BP 203 / 75; Pulse 69; Resp 19; Pulse Ox 95% ; jl7 16:00 BP 209 / 76; Pulse 71; Resp 20; Pulse Ox 95% ; jl7 16:26 BP 197 / 57; Pulse 70; Resp 19; Pulse Ox 95% ; jl7 16:47 BP 160 / 54; Pulse 70; Resp 22; Pulse Ox 100% on R/A; jl7 12:29 Body Mass Index 15.98 (46.27 kg, 170.18 cm) ll3 ED Course: 12:03 Patient arrived in ED. ss 12:06 Triage completed. ss 12:06 Arm band placed on right wrist. ss 12:09 Zaheer Krause PA is PHCP. jmm 12:09 Cleveland De Dios MD is Attending Physician. [facility] 12:20 Camille Palmer, LEWIS is Primary Nurse. ll3 12:29 Patient has correct armband on for positive identification. Placed in gown. Bed in low ll3 position. Call light in reach. Side rails up X 1. Adult w/ patient. 12:29 Inserted saline lock: 22 gauge in right antecubital area, using aseptic technique. ll3 12:35 XRAY Chest (1 view) In Process Unspecified. EDMS 12:37 EKG completed in triage. Results shown to MD. ll3 12:40 Initial lab(s) drawn, by ED staff, sent to lab. EKG done, by ED staff. ll3 12:40 COVID swab sent to lab. ll3 13:42 CT Chest Abdomen Pelvis W/O Contrast In Process Unspecified. EDMS 14:10 Qamar Godinez is Hospitalizing Provider. jmm 14:45 IV discontinued, intact, bleeding controlled, No redness/swelling at site. Pressure jl7 dressing applied. 14:50 Inserted saline lock: 20 gauge in left forearm, using aseptic technique. jl7 17:02 No provider procedures requiring assistance completed. ll3 Administered Medications: 12:26 Drug: Metoprolol 5 mg Route: IVP; Site: right antecubital; ll3 13:00 Follow up: Response: No adverse reaction; Blood pressure is unchanged jl7 12:26 Drug: Metoprolol 25 mg Route: PO; ll3 13:00 Follow up: Response: No adverse reaction; Blood pressure is unchanged jl7 14:45 Drug: Metoprolol 5 mg Route: IVP; Site: left femoral; ll3 14:49 Drug: Rocephin (cefTRIAXone) 1 grams Route: IV; Rate: calculated rate; Site: left ll3 forearm; 14:55 Follow up: Response: No adverse reaction; IV Status: Completed infusion jl7 15:41 Follow up: Response: No adverse reaction ll3 15:25 Drug: Metoprolol 5 mg Route: IVP; Site: left forearm; ll3 17:07 Follow up: Response: No adverse reaction; No change in condition ll3 15:59 CANCELLED (Duplicate Order): cloNIDine 0.1 mg PO once jmm 16:06 Drug: hydrALAZINE 10 mg Route: IVP; Site: left forearm; ll3 16:29 Follow up: Response: No adverse reaction; Blood pressure is lowered jl7 16:08 Drug: morphine 2 mg Route: IVP; Site: left forearm; jl7 17:06 Follow up: Response: No adverse reaction ll3 Outcome: 14:10 Decision to Hospitalize by Provider. jmm 17:05 Admitted to Med/surg accompanied by ann, via wheelchair, room 206, with chart, Report ll3 called to LEWIS Horner 17:05 Condition: stable 17:05 Patient left the ED. ll3 17:26 Patient left the ED. ss Signatures: Dispatcher [employer] EDMS Zaheer Krause PA PA jmm Smirch, Shelby, RN RN ss Vineet Ivory RN RN jl7 Camille Palmer RN RN ll3 Corrections: (The following items were deleted from the chart) 16:24 14:50 Inserted saline lock: 22 gauge in left forearm, using aseptic technique. IV jl7 discontinued, intact, bleeding controlled, No redness/swelling at site. ll3
--- NOTE | 2021-03-28 14:11 | EDPHYS ---
Physician Documentation [facility] Name: Isadora Jeffery Age: 85 yrs Sex: Female : 1935 Arrival Date: 03/28/2021 Time: 12:03 Bed 2 Private MD: ED Physician Cleveland De Dios HPI: 03/28 12:11 This 85 yrs old Female presents to ER via EMS with complaints of High Blood Pressure, jmm Shortness Of Breath. 12:11 Onset: The symptoms/episode began/occurred 1 day(s) ago. Modifying factors: The jmm symptoms are aggravated by. Associated signs and symptoms: Pertinent positives: dyspnea. Is an 85-year-old female with history of hypertension hyperlipidemia the presents emerged department with acute onset shortness of breath beginning yesterday. Symptoms worsened today. Patient given O2 in route which partially relieved symptoms. Patient denies chest pain, denies weakness, denies abdominal pain.. Historical: - Allergies: 12:06 Codeine; ss - Home Meds: 12:49 amlodipine 10 mg tab 1 tab once daily [Active]; atorvastatin 20 mg Oral tab 1 tab once ll3 daily [Active]; cyanocobalamin (vitamin B-12) 1,000 mcg/mL injection soln 1 mL once moly [Active]; hydrocodone-acetaminophen 5-325 mg Oral tab 0.5 tab every 4-6 hours [Active]; levothyroxine 25 mcg tab 1 tab once daily [Active]; metoprolol tartrate 50 mg Oral tab 1 tab once daily [Active]; prasugrel 10 mg oral tab [Active]; mirtazapine 15 mg Oral tab nightly [Active]; furosemide 20 mg Oral tab 2 times per day [Active]; aspirin 81 mg Oral tab daily [Active]; - PMHx: 12:06 CVA; Depression; Hyperlipidemia; Hypertension; ss - Immunization history:: Client reports receiving the 2nd dose of the Covid vaccine. - Social history:: Smoking status: Patient denies any tobacco usage or history of. ROS: 12:11 Constitutional: Negative for fever, chills, and weight loss, Cardiovascular: Negative jmm for chest pain, palpitations, and edema. 12:11 Respiratory: Positive for shortness of breath. 12:11 All other systems are negative. Exam: 12:11 Constitutional: This is a well developed, well nourished patient who is awake, alert, jmm and in no acute distress. Head/Face: atraumatic. Eyes: EOMI, no conjunctival erythema appreciated ENT: Moist Mucus Membranes Neck: Trachea midline, Supple Chest/axilla: Normal chest wall appearance and motion. Cardiovascular: Regular rate and rhythm. No edema appreciated 12:11 Back: Normal ROM Skin: General appearance color normal MS/ Extremity: Moves all extremities, no obvious deformities appreciated, no edema noted to the lower extremities Neuro: Awake and alert, normal gait Psych: Behavior is normal, Mood is normal, Patient is cooperative and pleasant 12:11 Respiratory: mild respiratory distress is noted, Respirations: labored breathing, that is mild, Breath sounds: wheezing: that is mild, is scattered. Vital Signs: 12:29 BP 214 / 112; Pulse 104; Resp 15; Temp 98.4; Pulse Ox 96% ; Weight 46.27 kg (R); Height ll3 5 ft. 7 in. (170.18 cm) (R); Pain 0/10; 13:26 BP 210 / 67; Pulse 83; Resp 21; Pulse Ox 100% on R/A; ll3 14:30 BP 213 / 71; Pulse 72; Resp 22; Pulse Ox 94% on R/A; ll3 15:00 BP 215 / 71; Pulse 73; Resp 20; Pulse Ox 94% ; jl7 15:30 BP 203 / 75; Pulse 69; Resp 19; Pulse Ox 95% ; jl7 16:00 BP 209 / 76; Pulse 71; Resp 20; Pulse Ox 95% ; jl7 16:26 BP 197 / 57; Pulse 70; Resp 19; Pulse Ox 95% ; jl7 16:47 BP 160 / 54; Pulse 70; Resp 22; Pulse Ox 100% on R/A; jl7 12:29 Body Mass Index 15.98 (46.27 kg, 170.18 cm) ll3 MDM: 12:31 Patient medically screened. [facility] 14:09 Data reviewed: vital signs, nurses notes. Counseling: I had a detailed discussion with janie the patient and/or guardian regarding: the historical points, exam findings, and any diagnostic results supporting the discharge/admit diagnosis, lab results, radiology results, the need for further work-up and treatment in the hospital. ED course: I discussed the patient with Dr. Godinez whom accepted the patient for admission. . 03/28 12:11 Order name: Basic Metabolic Panel; Complete Time: 13:26 [facility] 03/28 12:11 Order name: CBC with Diff; Complete Time: 12:52 [facility] 03/28 12:11 Order name: LFT's; Complete Time: 13:26 [facility] 03/28 12:11 Order name: Magnesium; Complete Time: 13:26 [facility] 03/28 12:11 Order name: NT PRO-BNP; Complete Time: 13:26 [facility] 03/28 12:11 Order name: PT-INR; Complete Time: 13:05 [facility] 03/28 12:11 Order name: Troponin (emerg Dept Use Only); Complete Time: 13:26 [facility] 03/28 12:11 Order name: XRAY Chest (1 view); Complete Time: 12:52 [facility] 03/28 12:11 Order name: SARS-COV-2 RT PCR (Document "Date of Onset" if Symptomatic); Complete Time: [facility] 13:43 03/28 13:06 Order name: Procalcitonin [facility] 03/28 13:06 Order name: Lactate; Complete Time: 16:53 [facility] 03/28 13:06 Order name: Blood Culture Adult (2) [facility] 03/28 13:06 Order name: Procalcitonin; Complete Time: 14:41 [facility] 03/28 13:21 Order name: CT Chest Abdomen Pelvis W/O Contrast; Complete Time: 14:05 [facility] 03/28 12:11 Order name: EKG; Complete Time: 12:12 [facility] 03/28 12:11 Order name: Cardiac monitoring; Complete Time: 12:27 [facility] 03/28 12:11 Order name: EKG - Nurse/Tech; Complete Time: 12:40 [facility] 03/28 12:11 Order name: IV Saline Lock; Complete Time: 12:27 [facility] 03/28 12:11 Order name: Labs collected and sent; Complete Time: 12:27 [facility] 03/28 12:11 Order name: O2 Per Protocol; Complete Time: 12:34 [facility] 03/28 12:11 Order name: O2 Sat Monitoring; Complete Time: 12:27 [facility] Administered Medications: 12:26 Drug: Metoprolol 5 mg Route: IVP; Site: right antecubital; ll3 13:00 Follow up: Response: No adverse reaction; Blood pressure is unchanged jl7 12:26 Drug: Metoprolol 25 mg Route: PO; ll3 13:00 Follow up: Response: No adverse reaction; Blood pressure is unchanged jl7 14:45 Drug: Metoprolol 5 mg Route: IVP; Site: left femoral; ll3 14:49 Drug: Rocephin (cefTRIAXone) 1 grams Route: IV; Rate: calculated rate; Site: left ll3 forearm; 14:55 Follow up: Response: No adverse reaction; IV Status: Completed infusion jl7 15:41 Follow up: Response: No adverse reaction ll3 15:25 Drug: Metoprolol 5 mg Route: IVP; Site: left forearm; ll3 17:07 Follow up: Response: No adverse reaction; No change in condition ll3 15:59 CANCELLED (Duplicate Order): cloNIDine 0.1 mg PO once [facility] 16:06 Drug: hydrALAZINE 10 mg Route: IVP; Site: left forearm; ll3 16:29 Follow up: Response: No adverse reaction; Blood pressure is lowered jl7 16:08 Drug: morphine 2 mg Route: IVP; Site: left forearm; jl7 17:06 Follow up: Response: No adverse reaction ll3 Disposition: 17:39 Co-signature as Attending Physician, Cleveland De Dios MD I agree with the assessment and rn plan of care. Attestation: The patient's history, exam findings, diagnostics, and a summary of any interventions or procedures was reviewed in detail with Zaheer MCCAULEY. Disposition Summary: 03/28/21 14:10 Hospitalization Ordered Hospitalization Status: Observation [facility] Provider: Qamar Godinez Location: Telemetry/MedSurg (observation) [facility] Condition: Stable [facility] Problem: new [facility] Symptoms: are unchanged [facility] Bed/Room Type: Standard [facility] Room Assignment: 206(03/28/21 15:55) bd Diagnosis - Acute Kidney Injury jmm - Pneumonia [facility] Forms: - Medication Reconciliation Form m - SBAR form [facility] Signatures: Dispatcher [employer] EDAraseli Cuevas Joel, PA PA jmm Cleveland De Dios MD MD rn Smirch, Shelby, RN RN ss Leal, Jahala, RN RN jl7 Loubet, Lynsea, RN RN ll3 Corrections: (The following items were deleted from the chart) 15: 14:10 janie 15:59 15:59 cloNIDine 0.1 mg PO once ordered. janie lima
[2021-03-28] MEDS ORDERED: NA CHLORIDE 0.9% 50 ML ONE (14:31)
[2021-03-28] MEDS ORDERED: CEFTRIAXONE 1000 MG/VIAL ONE (14:31)
--- NOTE | 2021-03-28 15:01 | P.HP ---
Certification for Inpatient Patient admitted to: Inpatient With expected LOS: >2 Midnights Practitioner: I am a practitioner with admitting privileges, knowledge of patient current condition, hospital course, and medical plan of care. Services: Services provided to patient in accordance with Admission requirements found in Title 42 Section 412.3 of the Code of Federal Regulations Patient History Date of Service: 03/28/21 Reason for admission: Shortness of breath History of Present Illness: 85-year-old woman with a past medical history of hypertension, coronary artery disease, renal insufficiency was brought to the emergency department due to progressive shortness of breath of 2 days duration. Patient reports nonproductive cough, denies any fever or pleurisy. Work-up in the emergency department with CT demonstrated bilateral pleural effusion, bilateral lung infiltrate and a possible lung mass. Blood work showed significantly elevated serum creatinine, hyperkalemia and metabolic acidosis. Blood pressure severely elevated on presentation, systolic in the 200s. Troponin negative, BNP markedly elevated. Patient with progressive CKD versus acute renal failure, bilateral pleural effusion and bilateral infiltrates. She is admitted for further management. Allergies codeine Allergy (Intermediate, Verified 04/29/19 21:26) Unknown Home Medications: Alendronate Sodium [Fosamax] 70 mg PO EVERY 7TH DAY 04/29/19 Amlodipine [Norvasc*] 10 mg PO DAILY 04/29/19 Atorvastatin Calcium [Lipitor*] 20 mg PO BEDTIME 04/29/19 Levothyroxine [Synthroid*] 25 mcg PO [id number] 04/29/19 Losartan Potassium [Cozaar*] 100 mg PO DAILY 04/29/19 Prasugrel HCl [Effient] 10 mg PO DAILY 04/29/19 hydroCHLOROthiazide [Hydrochlorothiazide*] 12.5 mg PO DAILY 04/29/19 traMADol HCL [Ultram*] 50 mg PO BEDTIME 04/29/19 Metoprolol Tartrate [Lopressor*] 50 mg PO BID #60 tab 04/30/19 - Past Medical/Surgical History Diabetic: No -: Hypertension -: Hyperlipidemia -: History CVA -: Carotid arterial disease with prior stent -: CAD -: Hypothyroidism -: Carotid stent -: Right partial hip replacement Psychosocial/ Personal History: Patient is a . She lives by herself. - Family History Father -: Stroke Mother -: Diabetes - Social History Alcohol use: No CD- Drugs: No Caffeine use: Yes Review of Systems Other: Except as documented, all other systems reviewed and negative. Physical Examination - Physical Exam General: Alert, In no apparent distress, Other (Frail-appearing) HEENT: Atraumatic, PERRLA, Mucous membr. moist/pink, EOMI, Sclerae nonicteric Neck: Supple, JVD not distended Respiratory: Clear to auscultation bilaterally, Normal air movement Cardiovascular: Regular rate/rhythm, Normal S1 S2, Edema (1+ bilateral leg edema) Capillary refill: <2 Seconds Gastrointestinal: Normal bowel sounds, Soft and benign, Non-distended, No tenderness Musculoskeletal: No swelling, No tenderness Integumentary: No rashes, No erythema Neurological: Normal speech, Normal strength at 5/5 x4 extr, Cranial nerves 3-12 intact Lymphatics: No axilla or inguinal lymphadenopathy - Studies Laboratory Data (last 24 hrs) 03/28/21 12:23: PT 10.9, INR 0.95 03/28/21 12:23: WBC 10.10 D, Hgb 9.2 L, Hct 28.1 L, Plt Count 282 D 03/28/21 12:23: Sodium 143, Potassium 5.3 H, BUN 93 H, Creatinine 6.77 H*, Glucose 118 H, Magnesium 1.6 L D, Total Bilirubin 0.6, AST 32, ALT 26, Alkaline Phosphatase 85 Assessment and Plan - Problems (Diagnosis) (1) Acute renal failure superimposed on chronic kidney disease Current Visit: Yes Status: Acute (2) Hyperkalemia Current Visit: Yes Status: Acute (3) Bilateral pleural effusion Current Visit: Yes Status: Acute (4) Pneumonia Current Visit: Yes Status: Acute (5) Metabolic acidosis Current Visit: Yes Status: Acute (6) Malignant hypertension Current Visit: Yes Status: Acute - Plan Admit patient to the medical floor. Patient states she still makes urine. Nephrology consult. No urinary obstruction. Insert to maintain Gaffney catheter. Start IV antibiotics for pneumonia. Follow cultures. Oxygen as needed Hemodialysis versus Lasix per nephrology. Patient looks volume overloaded rather than dry. I spoke to Dr. Porter and he is considering Lasix. Lasix should also help correct hyperkalemia. Diet as tolerated. Monitor renal function. Resume home antihypertensives-hydralazine and metoprolol. - Advance Directives Does patient have a Living Will: Yes Does patient have a Durable POA for Healthcare: Yes
[2021-03-28] MEDS ORDERED: HYDRALAZINE HCL 20 MG/ML VIAL ONE (16:04)
[2021-03-28] MEDS ORDERED: MORPHINE 2 MG/ML SYR ONE (16:04)
--- NOTE | 2021-03-28 16:29 | P.CNS ---
Date of Consult: 03/28/21 Reason for Consult: PASQUALE/ CKD Requesting Physician: karin mora Primary Care Provider: Dr. Pina Chief Complaint: Dyspnea History of Present Illness: 85 yo WF CKD, HTN presented to the ER with several hours of severe, progressive dyspnea with associated wheezing and HTN in the setting of CHF. No current NSAIDs. Insomnia. Allergies codeine Allergy (Intermediate, Verified 04/29/19 21:26) Unknown Home medications list reviewed: Yes Home Medications: Alendronate Sodium [Fosamax] 70 mg PO EVERY 7TH DAY 04/29/19 Amlodipine [Norvasc*] 10 mg PO DAILY 04/29/19 Atorvastatin Calcium [Lipitor*] 20 mg PO BEDTIME 04/29/19 Levothyroxine [Synthroid*] 25 mcg PO [id number] 04/29/19 Losartan Potassium [Cozaar*] 100 mg PO DAILY 04/29/19 Prasugrel HCl [Effient] 10 mg PO DAILY 04/29/19 hydroCHLOROthiazide [Hydrochlorothiazide*] 12.5 mg PO DAILY 04/29/19 traMADol HCL [Ultram*] 50 mg PO BEDTIME 04/29/19 Metoprolol Tartrate [Lopressor*] 50 mg PO BID #60 tab 04/30/19 - Past Medical/Surgical History Diabetic: No -: Hypertension -: Hyperlipidemia -: History CVA -: Carotid arterial disease with prior stent -: CAD -: Hypothyroidism -: Carotid stent -: Right partial hip replacement Psychosocial/ Personal History: Patient is a . She lives by herself. - Family History Father Medical History: Stroke Mother Medical History: Diabetes - Social History Smoking Status: Never smoker Alcohol use: No CD- Drugs: No Caffeine use: Yes Review of Systems 10-point ROS is otherwise unremarkable General: Weakness, Malaise Respiratory: Shortness of Breath, SOB with Excertion Neurological: Weakness Physical Examination General: Oriented x3, Cooperative HEENT: Atraumatic Neck: Supple Respiratory: Normal air movement Cardiovascular: Regular rate/rhythm, Edema Gastrointestinal: Soft and benign, Non-distended Musculoskeletal: No clubbing, No contractures Integumentary: No rashes, No cyanosis Neurological: Normal speech Laboratory Data (last 24 hrs) 03/28/21 12:23: PT 10.9, INR 0.95 12/14/21 12:23: WBC 10.10 D, Hgb 9.2 L, Hct 28.1 L, Plt Count 282 D 03/28/21 12:23: Sodium 143, Potassium 5.3 H, BUN 93 H, Creatinine 6.77 H*, Glucose 118 H, Magnesium 1.6 L D, Total Bilirubin 0.6, AST 32, ALT 26, Alkaline Phosphatase 85 Imagings Data: EXAM DESCRIPTION: CT - Chest Abd Pelvis Wo Con - 03/28/2021 1:43 pm CLINICAL HISTORY: Chest and abdomen pain. pasquale COMPARISON: No comparisons TECHNIQUE: A limited noncontrast study was performed. All CT scans are performed using dose optimization technique as appropriate and may include automated exposure control or mA/KV adjustment according to patient size. FINDINGS: 9 mm noncalcified pulmonary nodule is seen in the anterior right upper lobe. Small calcified nodule seen in the right upper lobe laterally as well. [place] 23 x 14 mm mass is present in the posterior left upper lobe (image 32/130).Moderate opacities are present in both lung bases which may represent atelectasis or infiltrate/ pneumonia.Moderate bilateral pleural effusions are seen.No intrathoracic adenopathy. The liver demonstrates no focal mass or biliary dilatation. Cholecystectomy clips. The spleen, pancreas, adrenal glands and kidneys are within normal limits. Mild atrophy of the left kidney. No bowel obstruction, free air, free fluid or abscess. The appendix is not identified as a discrete structure, however, no secondary findings of appendicitis are identified. No pathologic lymphadenopathy in the abdomen or pelvis. Heavy aortoiliac atherosclerosis. Prominent lumbar degenerative changes are present. Moderate levoscoliosis. IMPRESSION: Moderate bibasilar lung opacities are seen with bilateral pleural effusions favored to represent infection/ pneumonia. Nonspecific nodules in both lungs, including a sizable 23 mm mass in the posterior left upper lobe. PET-CT follow-up would be suggested to further evaluate this lesion. EXAM DESCRIPTION: RAD - Chest Single View - 03/28/2021 12:35 pm CLINICAL HISTORY: SOB Chest pain. COMPARISON: Chest Pa And Lat (2 Views) dated 09/19/2020; Chest Pa And Lat (2 Views) dated 08/11/2020; Chest Single View dated 04/29/2019; Chest Single View dated 06/15/2018 FINDINGS: Portable technique limits examination quality. Moderate lower lobe consolidations are present, greater on the left with small pleural effusions. This likely represents infiltrate/pneumonia. The heart is upper limit normal in size. Probable hiatal hernia seen. IMPRESSION: Bibasilar lung infiltrates are present suspicious for pneumonia. Conclusions/Impression: PASQUALE of unclear etiology. CRS? Progressive CKD? 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 Case reviewed with the ER provider and Dr. Mora Critical Care: Yes
[2021-03-28] MEDS ORDERED: ACETAMINOPHEN 500 MG TAB PO PRN (17:48)
[2021-03-28] MEDS: HEPARIN 5000 UNIT/ML 1 ML VIAL SQ SCH (17:48)
[2021-03-28] MEDS ORDERED: ALBUTEROL 2.5 MG/3 ML NEB SOL NEB PRN (17:48)
[2021-03-28] MEDS: AZITHROMYCIN IV 500 MG in NA CHLORIDE 0.9% 250 ML IVPB SCH ×2 (18:52→18:53)
[2021-03-28] MEDS: AMLODIPINE 10 MG TAB PO SCH (20:07)
[2021-03-28] MEDS ORDERED: FUROSEMIDE 40 MG/4 ML VIAL IV ONE (20:28)
[2021-03-28] MEDS ORDERED: MAGNESIUM SULFATE 1 gm IVPB 1 GM/100 ML BAG IV ONE (21:00)
[2021-03-28] MEDS: DOCUSATE NA 100 MG CAP PO SCH (21:47)
[2021-03-28] MEDS: METOPROLOL TAR 50 MG TAB PO SCH (21:47)
[2021-03-29] MEDS: HEPARIN 5000 UNIT/ML 1 ML VIAL SQ SCH ×3 (00:25→16:14)
[2021-03-29 00:27] LABS: Urine Appearance CLOUDY (Clear); Urine Bilirubin NEGATIVE (Negative); Urine Blood 3+ (Negative); Urine Color YELLOW (Yellow); Urine Glucose NEGATIVE (Negative); Urine Protein 3+ (Negative); Urine Specific Gravity 1.015 (1.005-1.030); Urine Urobilinogen 0.2 mg/dL (0.2-1.0)
[2021-03-29 00:36] LABS: Urine Microscopic Reflex ORDER UMIC
[2021-03-29 00:39] LABS: Urine Coarse Granular Casts 0-5 /LPF (NONE SEEN)
[2021-03-29 00:40] LABS: Urine Bacteria <20 /HPF (<20); Urine RBC 20-50 /HPF (NONE SEEN)
[2021-03-29] MEDS: HYDRALAZINE HCL 20 MG/ML VIAL IV PRN ×2 (01:18→17:08)
[2021-03-29 06:42] LABS: Basophils % 0.9 % (0-1.3); Lymphocytes % 15.2 % (15.3-44.8); RBC Red Blood Cell Count 2.71 M/uL (3.86-4.86)
[2021-03-29 07:06] LABS: Urine Appearance CLOUDY (Clear); Urine Bilirubin NEGATIVE (Negative); Urine Blood 3+ (Negative); Urine Color YELLOW (Yellow); Urine Glucose NEGATIVE (Negative); Urine Protein 3+ (Negative); Urine Specific Gravity 1.015 (1.005-1.030); Urine Urobilinogen 0.2 mg/dL (0.2-1.0)
[2021-03-29 07:16] LABS: Potassium 5.4 mmol/L (3.5-5.1); Uric Acid 7.6 mg/dL (2.6-6.0)
--- NOTE | 2021-03-29 07:50 | EKG ---
Test Date: 2021-03-28 Test Time: 12:37:22 Home School Liaison Officer: WES MEASUREMENT RESULTS: Intervals: Rate: 96 VA: 158 QRSD: 104 QT: 380 QTc: 480 [place]: P: 106 VA: 158 QRS: -31 T: 81 INTERPRETIVE STATEMENTS: Normal sinus rhythm Left axis deviation Septal infarct, age undetermined ST & T wave abnormality, consider lateral ischemia Abnormal ECG Compared to ECG 04/29/2019 14:17:24 Left-axis deviation now present ST (T wave) deviation now present Possible ischemia now present Sinus arrhythmia no longer present Left ventricular hypertrophy no longer present Myocardial infarct finding still present Electronically Signed On 03-29-21 07:48:13 GANG INVESTIGATOR by Donn Griffin
[2021-03-29 08:37] LABS: Urine RBC >50 /HPF (NONE SEEN)
[2021-03-29 08:38] LABS: Urine Bacteria >50 /HPF (<20)
[2021-03-29] MEDS ORDERED: NA CHLORIDE 0.9% 50 ML ONE ×2 (08:54→09:43)
[2021-03-29] MEDS: AZITHROMYCIN IV 500 MG in NA CHLORIDE 0.9% 250 ML IVPB SCH ×2 (09:00→09:01)
[2021-03-29] MEDS ORDERED: EPOETIN ALFA 10,000 UNIT/ML VIAL SQ SCH (09:00)
[2021-03-29] MEDS: DOCUSATE NA 100 MG CAP PO SCH ×2 (09:02→21:49)
[2021-03-29] MEDS: CALCITROL 0.25 MCG CAP PO SCH (09:02)
[2021-03-29] MEDS: METOPROLOL TAR 50 MG TAB PO SCH ×2 (09:02→21:49)
[2021-03-29] MEDS: AMLODIPINE 10 MG TAB PO SCH (09:04)
[2021-03-29] MEDS ORDERED: CEFTRIAXONE 1000 MG/VIAL ONE (09:42)
[2021-03-29] MEDS: CEFTRIAXONE 1,000 MG in NA CHLORIDE 0.9% 50 ML IVPB SCH ×2 (09:46→09:47)
[2021-03-29] MEDS ORDERED: METOLAZONE 5 MG TABLET PO ONE (10:54)
[2021-03-29] MEDS: SEVELAMER CARBONATE 800 MG TABLET PO SCH ×2 (12:04→16:14)
--- NOTE | 2021-03-29 14:00 | P.PN ---
Subjective Date of Service: 03/29/21 Primary Care Provider: Dr. Pina Chief Complaint: Dyspnea No new complaints. She still reports dyspnea especially with exertion. Physical Examination - Vital Signs Temperature: 97.3 F Blood Pressure: 142/65 Pulse: 65 Respirations: 16 Pulse Ox (%): 98 Assessment And Plan - Current Problems (Diagnosis) (1) Acute renal failure superimposed on chronic kidney disease Current Visit: Yes Status: Acute (2) Hyperkalemia Current Visit: Yes Status: Acute (3) Bilateral pleural effusion Current Visit: Yes Status: Acute (4) Pneumonia Current Visit: Yes Status: Acute (5) Metabolic acidosis Current Visit: Yes Status: Acute (6) Malignant hypertension Current Visit: Yes Status: Acute - Plan Physical examination General: Alert, NAD. HEENT: Mucous membr. moist/pink, EOMI, Sclerae nonicteric Neck: Supple, JVD not distended Respiratory: Clear to auscultation bilaterally, Normal air movement Cardiovascular: Regular rate/rhythm, Normal S1 S2, Edema (1+ bilateral leg edema) Capillary refill: <2 Seconds Gastrointestinal: Normal bowel sounds, Soft and benign, Non-distended, No tenderness Musculoskeletal: No tenderness Integumentary: No rashes, No erythema Neurological: Normal speech, Normal strength at 5/5 x4 extr, Cranial nerves 3-12 intact Nephrology input appreciated. No urinary obstruction. No change in renal function from yesterday. Metabolic acidosis is worse today. Hyperkalemia persist. Patient started on IV Lasix for diuresis. Had a dose of metolazone today. Nephrology is recommending hemodialysis. Patient and family yet to consent to hemodialysis Continue IV antibiotics for pneumonia. Follow cultures. Oxygen as needed Diet as tolerated. Monitor renal function. Continue home antihypertensives-hydralazine and metoprolol. Hydrochlorothiazide and losartan on hold due to progressive CKD. Hydralazine as needed for BP spikes.
[2021-03-29] MEDS: FUROSEMIDE 40 MG/4 ML VIAL IV SCH (16:10)
[2021-03-29] MEDS ORDERED: PNEUMOCOCCAL VACCINE 0.5 ML IMVAC ONE (18:00)
--- NOTE | 2021-03-29 20:46 | P.PN ---
Date of Service: 03/29/21 Vital Signs Temp Pulse Resp BP Pulse Ox 97.9 F 68 17 156/54 H 97 03/29/21 20:00 03/29/21 20:00 03/29/21 20:00 03/29/21 20:00 03/29/21 20:00 Medications Acetaminophen (Acetaminophen 500 Mg Tab) 500 mg PO Q4HP PRN PRN Reason: TEMP > 100' F Albuterol Sulfate (Albuterol 2.5 Mg/3 Ml Neb Sarai) 2.5 mg NEB [id number] PRN PRN Reason: SHORTNESS OF BREATH Amlodipine Besylate (Amlodipine 10 Mg Tab) 10 mg PO DAILY [facility] Last Admin: 03/29/21 09:04 Dose: 10 mg Documented by: Calcitriol (Calcitrol 0.25 Mcg Cap) 0.5 mcg PO DAILY [facility] Last Admin: 03/29/21 09:02 Dose: 0.5 mcg Documented by: Docusate Sodium (Docusate Na 100 Mg Cap) 100 mg PO BID [facility] Last Admin: 03/29/21 09:02 Dose: 100 mg Documented by: Enteral Nutritional Formula (Nepro Shake 237 Ml Can) 237 ml PO BID [facility] Furosemide (Furosemide 40 Mg/4 Ml Vial) 40 mg IV BIDL [facility] Last Admin: 03/29/21 16:10 Dose: 40 mg Documented by: Heparin Sodium (Porcine) (Heparin 5000 Unit/Ml 1 Ml Vial) 5,000 unit SQ Q8HR [facility] Last Admin: 03/29/21 16:14 Dose: 5,000 unit Documented by: Hydralazine HCl (Hydralazine Hcl 20 Mg/Ml Vial) 10 mg IV Q6HP PRN PRN Reason: FOR SBP>160 OR DBP>100 [facility] Last Admin: 03/29/21 17:08 Dose: 10 mg Documented by: Hydralazine HCl (Hydralazine Hcl 25 Mg Tablet) 25 mg PO BID [facility] Ceftriaxone Sodium 1,000 mg/ (Sodium Chloride) 50 mls @ 100 mls/hr IVPB DAILY [facility]; Protocol Last Admin: 03/29/21 09:47 Dose: 50 mls Documented by: Azithromycin 500 mg/ Sodium (Chloride) 250 mls @ 250 mls/hr IVPB DAILY [facility]; Protocol Last Admin: 03/29/21 09:01 Dose: 250 mls Documented by: Metoprolol Tartrate (Metoprolol Tar 50 Mg Tab) 50 mg PO BID [facility] Last Admin: 03/29/21 09:02 Dose: 50 mg Documented by: Ondansetron HCl (Ondansetron 4 Mg/2 Ml Vial) 4 mg IV Q6HP PRN PRN Reason: NAUSEA / VOMITING Sevelamer Carbonate (Sevelamer Carbonate 800 Mg Tablet) 800 mg PO TIDWM [facility] Last Admin: 03/29/21 16:14 Dose: 800 mg Documented by: Sodium Chloride (Flush Normal Saline 10 Ml) 10 ml IV BID [facility] Last Admin: 03/29/21 09:00 Dose: Not Given Documented by: Microbiology Results 03/28/21 13:15 Blood - Blood Aerobic Blood Culture - Preliminary No growth in 24 hours. 03/28/21 13:15 Blood - Blood Anaerobic Blood Culture - Preliminary No growth in 24 hours. 03/28/21 13:28 Blood - Blood Aerobic Blood Culture - Preliminary No growth in 24 hours. 03/28/21 13:28 Blood - Blood Anaerobic Blood Culture - Preliminary No growth in 24 hours. Assessment/ Plan: Nephrology No dyspnea No chest pain Good urine output. No acute events overnight Vitals, medications, blood work and imaging reviewed in the chart Physical Examination General: Oriented x3, Cooperative HEENT: Atraumatic Neck: Supple Respiratory: Normal air movement Cardiovascular: Regular rate/rhythm, Edema Gastrointestinal: Soft and benign, Non-distended Musculoskeletal: No clubbing, No contractures Integumentary: No rashes, No cyanosis Neurological: Normal speech Laboratory Data (last 24 hrs) 03/28/21 12:23: PT 10.9, INR 0.95 03/28/21 12:23: WBC 10.10 D, Hgb 9.2 L, Hct 28.1 L, Plt Count 282 D 03/28/21 12:23: Sodium 143, Potassium 5.3 H, BUN 93 H, Creatinine 6.77 H*, Glucose 118 H, Magnesium 1.6 L D, Total Bilirubin 0.6, AST 32, ALT 26, Alkaline Phosphatase 85 Imagings Data: EXAM DESCRIPTION: CT - Chest Abd Pelvis Wo Con - 03/28/2021 1:43 pm CLINICAL HISTORY: Chest and abdomen pain. pasquale COMPARISON: No comparisons TECHNIQUE: A limited noncontrast study was performed. All CT scans are performed using dose optimization technique as appropriate and may include automated exposure control or mA/KV adjustment according to patient size. FINDINGS: 9 mm noncalcified pulmonary nodule is seen in the anterior right upper lobe. Small calcified nodule seen in the right upper lobe laterally as well. [place] 23 x 14 mm mass is present in the posterior left upper lobe (image 32/130).Moderate opacities are present in both lung bases which may represent atelectasis or infiltrate/ pneumonia.Moderate bilateral pleural effusions are seen.No intrathoracic adenopathy. The liver demonstrates no focal mass or biliary dilatation. Cholecystectomy clips. The spleen, pancreas, adrenal glands and kidneys are within normal limits. Mild atrophy of the left kidney. No bowel obstruction, free air, free fluid or abscess. The appendix is not identified as a discrete structure, however, no secondary findings of appendicitis are identified. No pathologic lymphadenopathy in the abdomen or pelvis. Heavy aortoiliac atherosclerosis. Prominent lumbar degenerative changes are present. Moderate levoscoliosis. IMPRESSION: Moderate bibasilar lung opacities are seen with bilateral pleural effusions favored to represent infection/ pneumonia. Nonspecific nodules in both lungs, including a sizable 23 mm mass in the posterior left upper lobe. PET-CT follow-up would be suggested to further evaluate this lesion. EXAM DESCRIPTION: RAD - Chest Single View - 03/28/2021 12:35 pm CLINICAL HISTORY: SOB Chest pain. COMPARISON: Chest Pa And Lat (2 Views) dated 09/19/2020; Chest Pa And Lat (2 Views) dated 08/11/2020; Chest Single View dated 04/29/2019; Chest Single View dated 06/15/2018 FINDINGS: Portable technique limits examination quality. Moderate lower lobe consolidations are present, greater on the left with small pleural effusions. This likely represents infiltrate/pneumonia. The heart is upper limit normal in size. Probable hiatal hernia seen. IMPRESSION: Bibasilar lung infiltrates are present suspicious for pneumonia. Conclusions/Impression: PASQUALE of unclear etiology. CRS? Progressive CKD? CKD IV with proteinuria LOS with mild atrophy of the left kidney -No NSAIDs -Consider dialysis -Hep panel pending Hyperkalemia -Lasix 40mg IV X1 Acidosis -Start oral bicarb Hypomagnesemia -Replete with IV magnesium HTN with CKD/ CHF -Continue Amlodipine Diastolic CHF, A/C BL Pleural Effusions -Continue Lasix BID -Metolazone X1 Moderate malnutrition -Continue Nepro Anemia in chronic illness -Retacrit prn CKD MBD -Continue Calcitriol -Start Renvela Multiple pulmonary nodules [place] 23mm mass -Consider pulmonary evaluation BL PNA -Continue Zithromax and Rocephin Case reviewed with Dr. Godinez
[2021-03-29] MEDS: SODIUM BICARB 325 MG TAB PO SCH (21:48)
[2021-03-29] MEDS: HYDRALAZINE HCL 25 MG TABLET PO SCH (21:49)
[2021-03-29] MEDS: NEPRO SHAKE 237 ML CAN PO SCH (21:50)
[2021-03-30] MEDS: HEPARIN 5000 UNIT/ML 1 ML VIAL SQ SCH ×3 (00:33→16:31)
[2021-03-30 05:59] LABS: Absolute Lymphocytes (CBC) 1.1 K/uL (0.7-4.9); Basophils % 0.8 % (0-1.3); Hematocrit 21.2 % (36.0-45.0); Lymphocytes % 17.3 % (15.3-44.8); RBC Red Blood Cell Count 2.35 M/uL (3.86-4.86)
[2021-03-30 06:31] LABS: Albumin 1.9 g/dL (3.4-5.0); Potassium 5.5 mmol/L (3.5-5.1)
[2021-03-30 06:38] LABS: Phosphorus 5.7 mg/dL (2.5-4.9)
[2021-03-30] MEDS ORDERED: AZITHROMYCIN 500 MG INJ IVPB ONE (08:55)
[2021-03-30] MEDS ORDERED: NA CHLORIDE 0.9% 0 ML ONE (08:55)
[2021-03-30] MEDS ORDERED: NA CHLORIDE 0.9% 250 ML ONE ×2 (08:59→15:47)
[2021-03-30] MEDS: NEPRO SHAKE 237 ML CAN PO SCH ×2 (09:00→20:19)
--- NOTE | 2021-03-30 09:09 | P.PN ---
Subjective Date of Service: 03/30/21 Primary Care Provider: Dr. Pina Chief Complaint: Dyspnea Patient has no complaint. Renal function is worse today. Physical Examination - Vital Signs Temperature: 96.9 F Blood Pressure: 150/80 Pulse: 66 Respirations: 19 Pulse Ox (%): 96 Assessment And Plan - Current Problems (Diagnosis) (1) Acute renal failure superimposed on chronic kidney disease Current Visit: Yes Status: Acute (2) Hyperkalemia Current Visit: Yes Status: Acute (3) Bilateral pleural effusion Current Visit: Yes Status: Acute (4) Pneumonia Current Visit: Yes Status: Acute (5) Metabolic acidosis Current Visit: Yes Status: Acute (6) Malignant hypertension Current Visit: Yes Status: Acute - Plan Physical examination General: Alert, NAD. Neck: Supple, JVD not distended Respiratory: Clear to auscultation bilaterally, Normal air movement Cardiovascular: Regular rate/rhythm, Normal S1 S2, Edema (1+ bilateral leg edema) Gastrointestinal: Normal bowel sounds, Soft and benign, Non-distended, No tenderness Musculoskeletal: No tenderness Neurological: Normal speech, Normal strength at 5/5 x4 extr, Cranial nerves 3-12 intact Plan: Renal function was from yesterday. Hyperkalemia persist. Nephrology is following. Patient currently on IV Lasix and metolazone. Looks like hemodialysis is imperative. Continue IV antibiotics for pneumonia. Urine culture is growing gram-negative rods. Follow final urine culture. Oxygen as needed Diet as tolerated. Monitor renal function. Continue home antihypertensives-hydralazine and metoprolol. Hydrochlorothiazide and losartan on hold due to progressive CKD. Hydralazine as needed for BP spikes.
[2021-03-30] MEDS ORDERED: CEFTRIAXONE 1000 MG/VIAL ONE (09:24)
[2021-03-30] MEDS ORDERED: NA CHLORIDE 0.9% 50 ML ONE (09:25)
[2021-03-30] MEDS: AMLODIPINE 10 MG TAB PO SCH (09:43)
[2021-03-30] MEDS: SEVELAMER CARBONATE 800 MG TABLET PO SCH ×3 (09:44→16:31)
[2021-03-30] MEDS: CALCITROL 0.25 MCG CAP PO SCH (09:44)
[2021-03-30] MEDS: SODIUM BICARB 325 MG TAB PO SCH ×4 (09:44→20:10)
[2021-03-30] MEDS: DOCUSATE NA 100 MG CAP PO SCH ×2 (09:44→20:11)
[2021-03-30] MEDS: METOPROLOL TAR 50 MG TAB PO SCH ×2 (09:45→20:11)
[2021-03-30] MEDS: HYDRALAZINE HCL 25 MG TABLET PO SCH ×2 (09:45→20:16)
[2021-03-30] MEDS: FUROSEMIDE 40 MG/4 ML VIAL IV SCH ×2 (09:45→16:30)
--- NOTE | 2021-03-30 11:08 | P.PN ---
Date of Service: 03/30/21 Vital Signs Temp Pulse Resp BP Pulse Ox 97.1 F 63 19 153/66 H 95 03/30/21 10:32 03/30/21 10:32 03/30/21 10:32 03/30/21 10:32 03/30/21 10:32 Medications Acetaminophen (Acetaminophen 500 Mg Tab) 500 mg PO Q4HP PRN PRN Reason: TEMP > 100' F Albuterol Sulfate (Albuterol 2.5 Mg/3 Ml Neb Sarai) 2.5 mg NEB [id number] PRN PRN Reason: SHORTNESS OF BREATH Amlodipine Besylate (Amlodipine 10 Mg Tab) 10 mg PO DAILY [facility] Last Admin: 03/30/21 09:43 Dose: 10 mg Documented by: Calcitriol (Calcitrol 0.25 Mcg Cap) 0.5 mcg PO DAILY [facility] Last Admin: 03/30/21 09:44 Dose: 0.5 mcg Documented by: Docusate Sodium (Docusate Na 100 Mg Cap) 100 mg PO BID [facility] Last Admin: 03/30/21 09:44 Dose: 100 mg Documented by: Enteral Nutritional Formula (Nepro Shake 237 Ml Can) 237 ml PO BID [facility] Last Admin: 03/29/21 21:50 Dose: 237 ml Documented by: Furosemide (Furosemide 40 Mg/4 Ml Vial) 40 mg IV BIDL [facility] Last Admin: 03/30/21 09:45 Dose: 40 mg Documented by: Heparin Sodium (Porcine) (Heparin 5000 Unit/Ml 1 Ml Vial) 5,000 unit SQ Q8HR [facility] Last Admin: 03/30/21 09:45 Dose: 5,000 unit Documented by: Hydralazine HCl (Hydralazine Hcl 20 Mg/Ml Vial) 10 mg IV Q6HP PRN PRN Reason: FOR SBP>160 OR DBP>100 [facility] Last Admin: 03/29/21 17:08 Dose: 10 mg Documented by: Hydralazine HCl (Hydralazine Hcl 25 Mg Tablet) 25 mg PO BID [facility] Last Admin: 03/30/21 09:45 Dose: 25 mg Documented by: Ceftriaxone Sodium 1,000 mg/ (Sodium Chloride) 50 mls @ 100 mls/hr IVPB DAILY [facility]; Protocol Last Admin: 03/29/21 09:47 Dose: 50 mls Documented by: Azithromycin 500 mg/ Sodium (Chloride) 250 mls @ 250 mls/hr IVPB DAILY [facility]; Protocol Last Admin: 03/29/21 09:01 Dose: 250 mls Documented by: Metoprolol Tartrate (Metoprolol Tar 50 Mg Tab) 50 mg PO BID [facility] Last Admin: 03/30/21 09:45 Dose: 50 mg Documented by: Ondansetron HCl (Ondansetron 4 Mg/2 Ml Vial) 4 mg IV Q6HP PRN PRN Reason: NAUSEA / VOMITING Sevelamer Carbonate (Sevelamer Carbonate 800 Mg Tablet) 800 mg PO TIDWM [facility] Last Admin: 03/30/21 09:44 Dose: 800 mg Documented by: Sodium Bicarbonate (Sodium Bicarb 325 Mg Tab) 650 mg PO QID [facility] Sodium Chloride (Flush Normal Saline 10 Ml) 10 ml IV BID [facility] Last Admin: 03/30/21 09:00 Dose: Not Given Documented by: Microbiology Results 03/28/21 13:15 Blood - Blood Aerobic Blood Culture - Preliminary No growth in 24 hours. 03/28/21 13:15 Blood - Blood Anaerobic Blood Culture - Preliminary No growth in 24 hours. 03/28/21 13:28 Blood - Blood Aerobic Blood Culture - Preliminary No growth in 24 hours. 03/28/21 13:28 Blood - Blood Anaerobic Blood Culture - Preliminary No growth in 24 hours. Assessment/ Plan: Nephrology No dyspnea No chest pain Nausea No acute events overnight Vitals, medications, blood work and imaging reviewed in the chart Physical Examination General: Oriented x3, Cooperative HEENT: Atraumatic Neck: Supple Respiratory: Normal air movement Cardiovascular: Regular rate/rhythm, Edema Gastrointestinal: Soft and benign, Non-distended Musculoskeletal: No clubbing, No contractures Integumentary: No rashes, No cyanosis Neurological: Normal speech Laboratory Data (last 24 hrs) 03/28/21 12:23: PT 10.9, INR 0.95 03/28/21 12:23: WBC 10.10 D, Hgb 9.2 L, Hct 28.1 L, Plt Count 282 D 03/28/21 12:23: Sodium 143, Potassium 5.3 H, BUN 93 H, Creatinine 6.77 H*, Glucose 118 H, Magnesium 1.6 L D, Total Bilirubin 0.6, AST 32, ALT 26, Alkaline Phosphatase 85 Imagings Data: EXAM DESCRIPTION: CT - Chest Abd Pelvis Wo Con - 03/28/2021 1:43 pm CLINICAL HISTORY: Chest and abdomen pain. pasquale COMPARISON: No comparisons TECHNIQUE: A limited noncontrast study was performed. All CT scans are performed using dose optimization technique as appropriate and may include automated exposure control or mA/KV adjustment according to patient size. FINDINGS: 9 mm noncalcified pulmonary nodule is seen in the anterior right upper lobe. Small calcified nodule seen in the right upper lobe laterally as well. [place] 23 x 14 mm mass is present in the posterior left upper lobe (image 32/130).Moderate opacities are present in both lung bases which may represent atelectasis or infiltrate/ pneumonia.Moderate bilateral pleural effusions are seen.No intrathoracic adenopathy. The liver demonstrates no focal mass or biliary dilatation. Cholecystectomy clips. The spleen, pancreas, adrenal glands and kidneys are within normal limits. Mild atrophy of the left kidney. No bowel obstruction, free air, free fluid or abscess. The appendix is not identified as a discrete structure, however, no secondary findings of appendicitis are identified. No pathologic lymphadenopathy in the abdomen or pelvis. Heavy aortoiliac atherosclerosis. Prominent lumbar degenerative changes are present. Moderate levoscoliosis. IMPRESSION: Moderate bibasilar lung opacities are seen with bilateral pleural effusions favored to represent infection/ pneumonia. Nonspecific nodules in both lungs, including a sizable 23 mm mass in the posterior left upper lobe. PET-CT follow-up would be suggested to further evaluate this lesion. EXAM DESCRIPTION: RAD - Chest Single View - 03/28/2021 12:35 pm CLINICAL HISTORY: SOB Chest pain. COMPARISON: Chest Pa And Lat (2 Views) dated 09/19/2020; Chest Pa And Lat (2 Views) dated 08/11/2020; Chest Single View dated 04/29/2019; Chest Single View dated 06/15/2018 FINDINGS: Portable technique limits examination quality. Moderate lower lobe consolidations are present, greater on the left with small pleural effusions. This likely represents infiltrate/pneumonia. The heart is upper limit normal in size. Probable hiatal hernia seen. IMPRESSION: Bibasilar lung infiltrates are present suspicious for pneumonia. Conclusions/Impression: PASQUALE of unclear etiology. CRS? Progressive CKD? CKD IV with proteinuria LOS with mild atrophy of the left kidney -No NSAIDs -Dr. Dasilva consulted for tunneled HD CVC placement; NPO p MN -Arrange for acute HD post CVC -Hep panel pending -Will need dialysis placement Hyperkalemia -Kayexalate X1 dose Acidosis -Increase oral bicarb Hypomagnesemia -Replete with IV magnesium prn HTN with CKD/ CHF -Continue Amlodipine Diastolic CHF, A/C BL Pleural Effusions -Continue Lasix BID Moderate malnutrition -Continue Nepro Anemia in chronic illness -Retacrit MWF -Transfuse PRBC PRN CKD MBD -Continue Calcitriol -Continue Renvela Multiple pulmonary nodules [place] 23mm mass -Consider pulmonary evaluation BL PNA -Continue Zithromax and Rocephin Case reviewed with Dr. Godinez
[2021-03-30] MEDS ORDERED: SOD POLYSTYREN SUL 15 GM/60 ML UCUP PO ONE (13:00)
[2021-03-30] MEDS ORDERED: NA CHLORIDE 0.9% 250 ML IV SCH (13:00)
[2021-03-30] MEDS ORDERED: CEFAZOLIN/NS 1gm 1 GM/50 ML BAG IVPB SCH (14:15)
--- NOTE | 2021-03-30 14:56 | CON ---
Date of Consultation: 03/30/2021 Reason For Consultation: Patient needs a Tesio catheter. History Of Present Illness: The patient is an 85-year-old female with multiple medical problems, who was admitted 2 days ago with shortness of breath. The workup revealed acute renal failure requiring dialysis and I was consulted for Tesio catheter, as it is anticipated the patient will require dialy sis for quite some time. She is awake, alert, a little confused. No sore throat, runny nose, cough, headaches, or dizziness. No chest pain. No fever or chills. Review of Systems: Otherwise unremarkable. Past Medical History: Significant for hypertension, hyperlipidemia, history of stroke, coronary cata ry disease. Past Surgical History: Carotid stent and right partial hip replacement. Allergies: CODEINE. Social History: Patient does not smoke or drink alcohol. Family History: Significant for diabetes and stroke. Physical Examination: Vital Signs: Stable. She is afebrile. She is awake, alert, a little confused. Head And Neck: No masses. No JVD. Throat clear. Neck is supple. Chest: Clear. Heart: S1, S2. Abdomen: Soft. Extremity: Neurovascularly intact. Neurologic: Nonfocal. Laboratory Data: Reviewed. Her white count is 6.3. H and H are little low at 6.8 and 21.2. There is no left shift. INR is 0.95. Chemistry is significant for potassium of 5.5, BUN of 98, creatinine of 7.58. 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 Recommendations: We will place a Tesio catheter in the morning. Risks, benefits and alternatives we re discussed with the patient as well as the family. They understand and agree. /MODL Voice ID: [id number] Report ID: [id number]
[2021-03-30] MEDS: HYDRALAZINE HCL 20 MG/ML VIAL IV PRN (17:29)
[2021-03-30 21:49] LABS: UR PROTEIN 550.8 mg/dL (<11.9); Urine Protein/Creatinine Ratio 9.34 ratio (<0.15)
[2021-03-30 21:51] LABS: Hematocrit 26.6 % (36.0-45.0)
[2021-03-31] MEDS: HEPARIN 5000 UNIT/ML 1 ML VIAL SQ SCH ×3 (01:54→17:00)
[2021-03-31] MEDS: HYDRALAZINE HCL 20 MG/ML VIAL IV PRN (04:32)
[2021-03-31 06:04] LABS: Phosphorus 5.6 mg/dL (2.5-4.9); Potassium 4.7 mmol/L (3.5-5.1)
[2021-03-31] MEDS ORDERED: LIDOCAINE 1% 20 ML MDV ONE (07:15)
[2021-03-31] MEDS ORDERED: NA CHLORIDE 0.9% 100 ML IV ONE (07:15)
[2021-03-31] MEDS ORDERED: NS 0.9% VIAL 10 ML ONE (07:16)
[2021-03-31] MEDS ORDERED: NA CHLORIDE 0.9% 500 ML ONE (07:39)
[2021-03-31] MEDS: SEVELAMER CARBONATE 800 MG TABLET PO SCH ×3 (08:00→18:30)
[2021-03-31] MEDS ORDERED: CEFAZOLIN SODIUM 1 GM/VIAL ONE (08:12)
[2021-03-31] MEDS ORDERED: propofoL 200 MG/20 ML VIAL IV ONE (08:24)
[2021-03-31] MEDS ORDERED: LIDOCAINE 2% MPF 5 ML VIAL ONE (08:24)
[2021-03-31] MEDS ORDERED: FENTANYL CITR 100 MCG/2 ML ONE (08:24)
[2021-03-31] MEDS ORDERED: GLYCOPYRROLATE 0.2 MG/ML SYR ONE (08:50)
[2021-03-31] MEDS: CEFTRIAXONE 1,000 MG in NA CHLORIDE 0.9% 50 ML IVPB SCH (09:00)
[2021-03-31] MEDS: NEPRO SHAKE 237 ML CAN PO SCH ×2 (09:00→21:00)
[2021-03-31] MEDS: HEPARIN 5000 UNIT/ML 1 ML VIAL ONE ×2 (09:04→09:05)
--- NOTE | 2021-03-31 09:24 | P.OP ---
Ultrasonic Seaming Machine Operator: Niesha DAS Preoperative diagnosis: ARF Postoperative diagnosis: same Primary procedure: ANDRZEJ Sotelo Secondary procedure: Fluoroscopy Anesthesia: General Estimated blood loss: min Specimen: none Findings: Normal Anatomy Complications: None Transferred to: Recovery Room Condition: Good
[2021-03-31] MEDS ORDERED: ONDANSETRON 4 MG/2 ML VIAL ONE (09:32)
--- NOTE | 2021-03-31 10:09 | RAD REPORT ---
EXAM DESCRIPTION: RAD - Chest Single View - 03/31/2021 9:56 am CLINICAL HISTORY: S/P Tesio Chest pain. COMPARISON: Chest Single View dated 03/28/2021; Chest Pa And Lat (2 Views) dated 09/19/2020; Chest Pa And Lat (2 Views) dated 08/11/2020; Chest Single View dated 04/29/2019 FINDINGS: Portable technique limits examination quality. Right-sided venous catheter is in place with its tip in the SVC. No pneumothorax is present. Signific ant bilateral pulmonary opacities are present probably indicating volume overload. Normal to slightly prominent heart size. IMPRESSION: No postprocedure pneumothorax.
--- NOTE | 2021-03-31 10:12 | OP ---
Date of Procedure: 03/31/2021 Surgeon: Xavier Dasilva MD Certified Alcohol Drug Counselor: Tony Warren, Geodetic Engineer Certified. Preoperative Diagnosis: Acute renal failure. Postoperative Diagnosis: Acute renal failure. Procedure: Placement of right internal jugular Tesio catheter. Interpretation: Intraoperative fluoroscopy. Estimated Blood Loss: Minimal. Specimen: None. Findings: Normal anatomy. Anesthesia: General. Complications: None. Disposition: The patient tolerated the procedure in stable condition, taken to Recovery in good gene ral condition. Procedure In Detail: The patient was brought to the OR and placed in supine position. General anest hesia was begun. The patient was prepped and draped in usual sterile fashion. Lidocaine 1% infiltra estevan locally. An 18-gauge needle used to access the right IJ vein. Guidewire was passed. Position w as confirmed with fluoroscopy. Counterincision made on the right anterior chest. Tunneling device w as used to tunnel the catheter between the 2 wounds and then Seldinger technique used. Vein dilated. Tip of the catheter placed in the SVC under fluoroscopy. Catheter flushed with heparin and packed with heparin with good blood flow. Then 3-0 chromic used to approximate subcutaneous tissue and 3-0 nylon used to secure the tube to the chest wall. Sterile dressing applied. The patient was awakened and taken to Recovery in good general condition. Chest x-ray has been ordered. /MODL Voice ID: [id number] Report ID: [id number]
[2021-03-31] MEDS: AZITHROMYCIN IV 500 MG in NA CHLORIDE 0.9% 250 ML IVPB SCH (10:24)
[2021-03-31] MEDS: HYDRALAZINE HCL 25 MG TABLET PO SCH ×2 (10:24→20:37)
[2021-03-31] MEDS: CALCITROL 0.25 MCG CAP PO SCH (10:25)
[2021-03-31] MEDS: DOCUSATE NA 100 MG CAP PO SCH ×2 (10:25→20:36)
[2021-03-31] MEDS: FUROSEMIDE 40 MG/4 ML VIAL IV SCH ×2 (10:27→19:18)
[2021-03-31] MEDS: AMLODIPINE 10 MG TAB PO SCH (10:28)
[2021-03-31] MEDS: METOPROLOL TAR 50 MG TAB PO SCH ×2 (10:28→20:37)
[2021-03-31] MEDS: SODIUM BICARB 325 MG TAB PO SCH ×4 (10:29→20:36)
--- NOTE | 2021-03-31 14:57 | P.PN ---
Subjective Date of Service: 03/31/21 Primary Care Provider: Dr. Pina Chief Complaint: Dyspnea Patient has no complaint. Renal function continued to get worse. Physical Examination - Vital Signs Temperature: 97.0 F Blood Pressure: 190/78 Pulse: 74 Respirations: 18 Pulse Ox (%): 96 - Physical Exam General: In no apparent distress, Oriented x3 HEENT: Mucous membr. moist/pink Neck: JVD not distended Respiratory: Clear to auscultation bilaterally, Normal air movement Cardiovascular: No edema, Regular rate/rhythm, Normal S1 S2 Gastrointestinal: Soft and benign, Non-distended Musculoskeletal: No swelling Integumentary: No rashes Neurological: Normal strength at 5/5 x4 extr Assessment And Plan - Current Problems (Diagnosis) (1) Acute renal failure superimposed on chronic kidney disease Current Visit: Yes Status: Acute (2) Hyperkalemia Current Visit: Yes Status: Acute (3) Bilateral pleural effusion Current Visit: Yes Status: Acute (4) Pneumonia Current Visit: Yes Status: Acute (5) Metabolic acidosis Current Visit: Yes Status: Acute (6) Malignant hypertension Current Visit: Yes Status: Acute - Plan Physical examination General: Alert, NAD. Neck: Supple, JVD not distended Respiratory: Clear to auscultation bilaterally, Normal air movement Cardiovascular: Regular rate/rhythm, Normal S1 S2, Edema (1+ bilateral leg edema) Gastrointestinal: Normal bowel sounds, Soft and benign, Non-distended, No tenderness Musculoskeletal: No tenderness Neurological: Normal speech, Normal strength at 5/5 x4 extr, Cranial nerves 3-12 intact Plan: Dialysis catheter placed for hemodialysis. General surgery-Dr. Dasilva input appreciated. Nephrology is following. Continue IV Lasix and metolazone. Continue IV antibiotics for pneumonia. Patient to complete 5 days of treatment. Urine culture is growing E. coli. . Oxygen as needed Diet as tolerated. Monitor renal function. Continue home antihypertensives-hydralazine and metoprolol. Hydrochlorothiazide and losartan on hold due to progressive CKD. Hydralazine as needed for BP spikes.
[2021-03-31] MEDS ORDERED: MANNITOL 25% 12.5 GM/50 ML VIAL IV PRN (15:07)
[2021-03-31] MEDS ORDERED: NA CHLORIDE 0.9% 1,000 ML IV PRN (15:07)
[2021-03-31] MEDS ORDERED: ALBUMIN HUMAN 25% 50 ML IV SCH (16:00)
[2021-03-31] MEDS ORDERED: MANNITOL 20% 62.5 ML IV ONE (16:00)
[2021-03-31] MEDS: CEPACOL LOZENGES PO PRN (17:07)
[2021-03-31] MEDS: HYDROCODONE/APAP 5/325 MG TAB PO PRN (17:07)
[2021-03-31] MEDS: EPOETIN ALFA 10,000 UNIT/ML VIAL SQ SCH (18:00)
--- NOTE | 2021-03-31 19:50 | P.PN ---
Date of Service: 03/31/21 Vital Signs Temp Pulse Resp BP Pulse Ox 97.0 F 76 18 192/79 H 18 L 03/31/21 15:02 03/31/21 19:18 03/31/21 15:02 03/31/21 19:18 03/31/21 17:07 Medications Acetaminophen (Acetaminophen 500 Mg Tab) 500 mg PO Q4HP PRN PRN Reason: TEMP > 100' F Hydrocodone Bitart/Acetaminophen (Hydrocodone/Apap 5/325 Mg Tab) 1 tab PO Q6H PRN PRN Reason: Pain scale 5-7 (Moderate) Last Admin: 03/31/21 17:07 Dose: 1 tab Documented by: Albuterol Sulfate (Albuterol 2.5 Mg/3 Ml Neb Sarai) 2.5 mg NEB [id number] PRN PRN Reason: SHORTNESS OF BREATH Amlodipine Besylate (Amlodipine 10 Mg Tab) 10 mg PO DAILY [facility] Last Admin: 03/31/21 10:28 Dose: 10 mg Documented by: Calcitriol (Calcitrol 0.25 Mcg Cap) 0.5 mcg PO DAILY [facility] Last Admin: 03/31/21 10:25 Dose: 0.5 mcg Documented by: Cetylpyridinium Chloride/Menthol (Cepacol Lozenges) 1 ovidio PO Q4H PRN PRN Reason: COUGH Last Admin: 03/31/21 17:07 Dose: 1 ovidio Documented by: Docusate Sodium (Docusate Na 100 Mg Cap) 100 mg PO BID [facility] Last Admin: 03/31/21 10:25 Dose: 100 mg Documented by: Enteral Nutritional Formula (Nepro Shake 237 Ml Can) 237 ml PO BID [facility] Last Admin: 03/31/21 09:00 Dose: 237 ml Documented by: Epoetin Odin (Epoetin Odin 10,000 Unit/Ml Vial) 10,000 unit SQ M,W,F [facility] Last Admin: 03/31/21 18:00 Dose: 10,000 unit Documented by: Heparin Sodium (Porcine) (Heparin 5000 Unit/Ml 1 Ml Vial) 5,000 unit SQ Q8HR [facility] Last Admin: 03/31/21 17:00 Dose: 5,000 unit Documented by: Heparin Sodium (Porcine) (Heparin 1,000 Unit/Ml Vial) 6,000 unit IV EVERY HD PRN PRN Reason: AFTER EACH Hydralazine HCl (Hydralazine Hcl 20 Mg/Ml Vial) 10 mg IV Q6HP PRN PRN Reason: FOR SBP>160 OR DBP>100 MMHG Last Admin: 03/31/21 04:32 Dose: 10 mg Documented by: Hydralazine HCl (Hydralazine Hcl 25 Mg Tablet) 25 mg PO BID [facility] Last Admin: 03/31/21 10:24 Dose: 25 mg Documented by: Ceftriaxone Sodium 1,000 mg/ (Sodium Chloride) 50 mls @ 100 mls/hr IVPB DAILY [facility]; Protocol Stop: 04/01/21 09:29 Last Admin: 03/31/21 09:00 Dose: Not Given Documented by: Azithromycin 500 mg/ Sodium (Chloride) 250 mls @ 250 mls/hr IVPB DAILY [facility]; Protocol Stop: 04/01/21 09:59 Last Admin: 03/31/21 10:24 Dose: 250 mls Documented by: Sodium Chloride (Ns 1000 Ml Ivbag) 1,000 mls @ 0 mls/hr IV .Q0M PRN; Protocol PRN Reason: Priming and BP support at HD Stop: 03/31/21 23:59 Albumin Human (Albumin 25%) 50 mls @ 100 mls/hr IV EVERY HD [facility] Losartan Potassium (Losartan Potassium 50 Mg Tablet) 50 mg PO BID [facility] Mannitol (Mannitol 25% 12.5 Gm/50 Ml Vial) 12.5 gm IV EVERY HD PRN PRN Reason: FOR BP SUPPORT AT HD Last Admin: 03/31/21 16:00 Dose: 12.5 gm Documented by: Metoprolol Tartrate (Metoprolol Tar 50 Mg Tab) 50 mg PO BID [facility] Last Admin: 03/31/21 10:28 Dose: 50 mg Documented by: Ondansetron HCl (Ondansetron 4 Mg/2 Ml Vial) 4 mg IV Q6HP PRN PRN Reason: NAUSEA / VOMITING Sevelamer Carbonate (Sevelamer Carbonate 800 Mg Tablet) 800 mg PO TIDWM [facility] Last Admin: 03/31/21 18:30 Dose: 800 mg Documented by: Sodium Bicarbonate (Sodium Bicarb 325 Mg Tab) 650 mg PO QID [facility] Last Admin: 03/31/21 18:30 Dose: 650 mg Documented by: Sodium Chloride (Flush Normal Saline 10 Ml) 10 ml IV BID [facility] Last Admin: 03/31/21 09:00 Dose: 10 ml Documented by: Microbiology Results 03/28/21 13:15 Blood - Blood Aerobic Blood Culture - Preliminary No growth in 24 hours. 03/28/21 13:15 Blood - Blood Anaerobic Blood Culture - Preliminary No growth in 24 hours. 03/28/21 13:28 Blood - Blood Aerobic Blood Culture - Preliminary No growth in 24 hours. 03/28/21 13:28 Blood - Blood Anaerobic Blood Culture - Preliminary No growth in 24 hours. Assessment/ Plan: Nephrology No dyspnea No chest pain No acute events overnight Vitals, medications, blood work and imaging reviewed in the chart Physical Examination General: Oriented x3, Cooperative HEENT: Atraumatic Neck: Supple Respiratory: Normal air movement Cardiovascular: Regular rate/rhythm, Edema Gastrointestinal: Soft and benign, Non-distended Musculoskeletal: No clubbing, No contractures Integumentary: No rashes, No cyanosis Neurological: Normal speech Laboratory Data (last 24 hrs) 03/28/21 12:23: PT 10.9, INR 0.95 03/28/21 12:23: WBC 10.10 D, Hgb 9.2 L, Hct 28.1 L, Plt Count 282 D 03/28/21 12:23: Sodium 143, Potassium 5.3 H, BUN 93 H, Creatinine 6.77 H*, Glucose 118 H, Magnesium 1.6 L D, Total Bilirubin 0.6, AST 32, ALT 26, Alkaline Phosphatase 85 Imagings Data: EXAM DESCRIPTION: CT - Chest Abd Pelvis Wo Con - 03/28/2021 1:43 pm CLINICAL HISTORY: Chest and abdomen pain. pasquale COMPARISON: No comparisons TECHNIQUE: A limited noncontrast study was performed. All CT scans are performed using dose optimization technique as appropriate and may include automated exposure control or mA/KV adjustment according to patient size. FINDINGS: 9 mm noncalcified pulmonary nodule is seen in the anterior right upper lobe. Small calcified nodule seen in the right upper lobe laterally as well. [place] 23 x 14 mm mass is present in the posterior left upper lobe (image 32/130).Moderate opacities are present in both lung bases which may represent atelectasis or infiltrate/ pneumonia.Moderate bilateral pleural effusions are seen.No intrathoracic adenopathy. The liver demonstrates no focal mass or biliary dilatation. Cholecystectomy clips. The spleen, pancreas, adrenal glands and kidneys are within normal limits. Mild atrophy of the left kidney. No bowel obstruction, free air, free fluid or abscess. The appendix is not identified as a discrete structure, however, no secondary findings of appendicitis are identified. No pathologic lymphadenopathy in the abdomen or pelvis. Heavy aortoiliac atherosclerosis. Prominent lumbar degenerative changes are present. Moderate levoscoliosis. IMPRESSION: Moderate bibasilar lung opacities are seen with bilateral pleural effusions favored to represent infection/ pneumonia. Nonspecific nodules in both lungs, including a sizable 23 mm mass in the posterior left upper lobe. PET-CT follow-up would be suggested to further evaluate this lesion. EXAM DESCRIPTION: RAD - Chest Single View - 03/28/2021 12:35 pm CLINICAL HISTORY: SOB Chest pain. COMPARISON: Chest Pa And Lat (2 Views) dated 09/19/2020; Chest Pa And Lat (2 Views) dated 08/11/2020; Chest Single View dated 04/29/2019; Chest Single View dated 06/15/2018 FINDINGS: Portable technique limits examination quality. Moderate lower lobe consolidations are present, greater on the left with small pleural effusions. This likely represents infiltrate/pneumonia. The heart is upper limit normal in size. Probable hiatal hernia seen. IMPRESSION: Bibasilar lung infiltrates are present suspicious for pneumonia. Conclusions/Impression: PASQUALE of unclear etiology. CRS? Progressive CKD? CKD IV with proteinuria LOS with mild atrophy of the left kidney -No NSAIDs -Acute HD today; next HD tomorrow -Hep panel pending -[facility] Dialysis placement pending Hyperkalemia -Acute HD Acidosis -Continue oral bicarb Hypomagnesemia -Replete with IV magnesium prn HTN with CKD/ CHF -Continue Amlodipine -Start Losartan BID Diastolic CHF, A/C BL Pleural Effusions -Reduce Lasix Daily Moderate malnutrition -Continue Nepro Anemia in chronic illness -Retacrit MWF -Transfuse PRBC PRN CKD MBD -Continue Calcitriol -Continue Renvela Multiple pulmonary nodules [place] 23mm mass -Consider pulmonary evaluation BL PNA -Continue Zithromax and Rocephin
[2021-03-31] MEDS: ONDANSETRON 4 MG/2 ML VIAL IV PRN (20:10)
[2021-03-31] MEDS: LOSARTAN POTASSIUM 50 MG TABLET PO SCH (20:37)
[2021-04-01] MEDS: HEPARIN 5000 UNIT/ML 1 ML VIAL SQ SCH (01:21)
[2021-04-01] MEDS: NEPRO SHAKE 237 ML CAN PO SCH ×2 (01:22→08:52)
[2021-04-01 06:26] LABS: Phosphorus 5.4 mg/dL (2.5-4.9); Potassium 4.4 mmol/L (3.5-5.1)
[2021-04-01] MEDS: CALCITROL 0.25 MCG CAP PO SCH (08:49)
[2021-04-01] MEDS: CEFTRIAXONE 1,000 MG in NA CHLORIDE 0.9% 50 ML IVPB SCH (08:49)
[2021-04-01] MEDS: METOPROLOL TAR 50 MG TAB PO SCH ×2 (08:50→20:45)
[2021-04-01] MEDS: HYDRALAZINE HCL 25 MG TABLET PO SCH ×2 (08:51→20:45)
[2021-04-01] MEDS: LOSARTAN POTASSIUM 50 MG TABLET PO SCH ×2 (08:51→20:46)
[2021-04-01] MEDS: DOCUSATE NA 100 MG CAP PO SCH ×2 (08:51→20:45)
[2021-04-01] MEDS: SEVELAMER CARBONATE 800 MG TABLET PO SCH ×3 (08:51→17:09)
[2021-04-01] MEDS: SODIUM BICARB 325 MG TAB PO SCH ×4 (08:51→20:44)
[2021-04-01] MEDS: AMLODIPINE 10 MG TAB PO SCH (08:51)
[2021-04-01] MEDS: FUROSEMIDE 40 MG/4 ML VIAL IV SCH (08:52)
[2021-04-01] MEDS: CEPACOL LOZENGES PO PRN (08:53)
[2021-04-01 11:21] LABS: Immunoglobulin A 137 mg/dL (70-320); Immunoglobulin G 819 mg/dL (600-1540); Immunoglobulin M 74 mg/dL (50-300)
--- NOTE | 2021-04-01 11:49 | P.PN ---
Subjective Date of Service: 04/01/21 Primary Care Provider: Dr. Pina Chief Complaint: Dyspnea Patient underwent hemodialysis yesterday Renal function trended down. Dialysis catheter site was initially oozing blood. The oozing has stopped. Physical Examination - Vital Signs Temperature: 97.2 F Blood Pressure: 176/78 Pulse: 70 Respirations: 16 Pulse Ox (%): 91 Assessment And Plan - Current Problems (Diagnosis) (1) Acute renal failure superimposed on chronic kidney disease Current Visit: Yes Status: Acute (2) Hyperkalemia Current Visit: Yes Status: Acute (3) Bilateral pleural effusion Current Visit: Yes Status: Acute (4) Pneumonia Current Visit: Yes Status: Acute (5) Metabolic acidosis Current Visit: Yes Status: Acute (6) Malignant hypertension Current Visit: Yes Status: Acute - Plan Physical examination General: Alert, NAD. Neck: Supple, JVD not distended Respiratory: Clear to auscultation bilaterally, Normal air movement Cardiovascular: Regular rate/rhythm, Normal S1 S2, Edema (1+ bilateral leg edema) Gastrointestinal: Normal bowel sounds, Soft and benign, Non-distended, No tenderness Musculoskeletal: No tenderness Neurological: Normal speech, Normal strength at 5/5 x4 extr, Cranial nerves 3-12 intact Plan: Patient planned for another hemodialysis session today. Nephrology is following. Continue lasix and metolazone therapy per Nephrology. Urine culture is growing E. coli. Patient to completed 5 days of antibiotics treatment for UTI and pneumonia. Diet as tolerated. Monitor renal function. Continue home antihypertensives-hydralazine and metoprolol. Hydrochlorothiazide and losartan on hold due to progressive CKD. Hydralazine as needed for BP spikes. Heparin subcu on hold due to blood oozing from the dialysis catheter site. Pressure dressing as needed.
[2021-04-01 12:06] LABS: Absolute Lymphocytes (CBC) 1.1 K/uL (0.7-4.9); Basophils % 0.3 % (0-1.3); Hematocrit 31.6 % (36.0-45.0); Lymphocytes % 8.9 % (15.3-44.8); RBC Red Blood Cell Count 3.55 M/uL (3.86-4.86)
[2021-04-01] MEDS ORDERED: MANNITOL 20% 250 ML BAG IV PRN (12:12)
--- NOTE | 2021-04-01 12:39 | PN ---
Date of Progress Note: 04/01/2021 Subjective: The patient is seen at [facility] [place]. The patient is in r oom 206. The patient is alert, awake, and looking comfortable. Her son is with her. She is comfort able at rest. Does require about 2 L of oxygen with O2 sats in the 90s range. She does get short of breath with exertion. Denies any headache, nausea, or vomiting currently. She does look frail and does feel frail Objective: Vital Signs: On evaluation of her vitals, vitals are relatively stable with systolic blo od pressure on the higher side at 176/78 last, pulse is about 70 and regular, respirations around 14 to 16 and comfortable, O2 sats are about 90% to 91% on 2 L nasal cannula. The patient is afebrile wi last temperature at 97.2 Fahrenheit. Lungs: Clear anteriorly with decreased breath sounds at the very bases from posterior hearing. Abdomen: Soft. Extremities: Reveal trace edema bilaterally on the legs. Heart: Sounds are regular. Laboratory Data: Reviewed. Labs show the hemoglobin on March 30 to be 8.9, hemoglobin before t hat was 6.8 on March 30 in the morning. Her platelet count is 222. Her WBC count is 6.3. Her chemistry shows sodium 141. Today, potassium 4.4, chloride 107, bicarb is 25, BUN is 58, creatinine is 5.62, glucose is around 106, calcium 8.6, phosphorus 5.4, albumin 2.0. The patient's sodium has i mproved from yesterday to 141 from 143. Her chloride has improved from 113 to 107. Her BUN is down from 100 to 58 and creatinine is down from 7.75 to 5.62. The patient did have a dialysis treatment y esterday that she tolerated reasonably well. Assessment And Plan: 1.The patient with chronic kidney disease, progressing/acute kidney injury component. Volume status seems to be slightly overloaded. Blood pressure is slightly on the higher side. The patient with a nemia, metabolic acidosis, and hypocalcemia. At this point, the patient is clinically looking stable , but still not out of the word, still with guarded condition. Discussed plan with her. The patient wants to continue dialysis. Has dialysis scheduled for today and then plan is to place her at [facility] unit starting some point next week. The patient is still frail. Fall precautions have been coun seled. Dialysis today for 2 hours. Dialysis nurse is aware. Tolerated dialysis treatment well yest camryn. Mannitol 25 g at start of dialysis. Monitor blood pressure through dialysis. With ultrafilt ration, hopefully the blood pressure will also improve. 2.Hyperkalemia, resolved with dialysis. Plan treatment today again. Acidosis, resolved with dialys is. Bicarb is now in normal range. Continue to monitor. 3.Hypomagnesemia. Has gotten magnesium replacement. We will continue p.r.n. 4.Hypertension, should improve further with ultrafiltration. The patient is on amlodipine. Continu e monitoring. 5.Congestive heart failure, volume overload. The patient is on Lasix. Continue gentle ultrafiltrat ion with dialysis. Hopefully that will continue to improve as we were able to take some ultrafiltrat ion with dialysis. 6.Anemia of chronic illness. The patient is on Retacrit on Saturday, Saturday, Saturday. The patient has had transfusion order as needed p.r.n. We will go ahead and check CBC today. Nurse has been adv ised to call me if hemoglobin is dropping below 7. Continue Retacrit on Saturday, Saturday, Saturday at 10,000 units subcu. 7.Metabolic bone disease. The patient is on calcitriol and Renvela. This should also improve her h ypocalcemia and perhaps her slightly elevated phosphorus. Fall precautions, may need physical therap y in the future. The patient, at this point, is requiring some oxygen. Hopefully that will improve with ultrafiltration. Plan to place her for dialysis starting next week and hopefully if condition i s stable, may be discharged after dialysis on Saturday or at some point in mid next week depending on d ialysis chair placement schedule and also the patient's condition clinically. /KANA Voice ID: [id number] Report ID: [id number]
[2021-04-02] MEDS: SODIUM BICARB 325 MG TAB PO SCH ×4 (08:23→20:34)
[2021-04-02] MEDS: SEVELAMER CARBONATE 800 MG TABLET PO SCH ×3 (08:23→17:00)
[2021-04-02] MEDS: FUROSEMIDE 40 MG/4 ML VIAL IV SCH (08:23)
[2021-04-02] MEDS: DOCUSATE NA 100 MG CAP PO SCH ×2 (08:23→20:35)
[2021-04-02] MEDS: METOPROLOL TAR 50 MG TAB PO SCH ×2 (08:25→20:35)
[2021-04-02] MEDS: AMLODIPINE 10 MG TAB PO SCH (08:25)
[2021-04-02] MEDS: HYDRALAZINE HCL 25 MG TABLET PO SCH ×2 (08:26→20:35)
[2021-04-02] MEDS: CALCITROL 0.25 MCG CAP PO SCH (08:26)
[2021-04-02] MEDS: LOSARTAN POTASSIUM 50 MG TABLET PO SCH ×2 (08:26→20:36)
[2021-04-02] MEDS: NEPRO SHAKE 237 ML CAN PO SCH ×3 (09:00→20:37)
[2021-04-02] MEDS: HYDROCODONE/APAP 5/325 MG TAB PO PRN (10:22)
[2021-04-02] MEDS: HYDRALAZINE HCL 20 MG/ML VIAL IV PRN (10:22)
--- NOTE | 2021-04-02 11:55 | P.PN ---
Subjective Date of Service: 04/02/21 Primary Care Provider: Dr. Pina Chief Complaint: Dyspnea Patient has undergone hemodialysis x2. Patient has no new complaint. Urine culture growing E. coli and Enterococcus. Hemodialysis catheter site looks clean, no oozing. Physical Examination - Vital Signs Temperature: 97.8 F Blood Pressure: 201/83 Pulse: 72 Respirations: 17 Pulse Ox (%): 90 Assessment And Plan - Current Problems (Diagnosis) (1) Acute renal failure superimposed on chronic kidney disease Current Visit: Yes Status: Acute (2) Hyperkalemia Current Visit: Yes Status: Acute (3) Bilateral pleural effusion Current Visit: Yes Status: Acute (4) Pneumonia Current Visit: Yes Status: Acute (5) Metabolic acidosis Current Visit: Yes Status: Acute (6) Malignant hypertension Current Visit: Yes Status: Acute - Plan Physical examination General: Alert, NAD. Neck: Supple, JVD not distended Respiratory: Clear to auscultation bilaterally, Normal air movement Cardiovascular: Regular rate/rhythm, Normal S1 S2, Edema (1+ bilateral leg edema) Gastrointestinal: Normal bowel sounds, Soft and benign, Non-distended, No tenderness Musculoskeletal: No tenderness Neurological: Normal speech, Normal strength at 5/5 x4 extr, Cranial nerves 3-12 intact Plan: Hemodialysis sessions x2 Nephrology is following. Lasix therapy per nephrology. Patient is on bicarb for metabolic acidosis Urine culture is growing E. coli and Enterococcus. Patient completed antibiotics treatment for UTI and pneumonia. Diet as tolerated. Monitor renal function. Continue home antihypertensives-hydralazine and metoprolol. Hydrochlorothiazide and losartan on hold due to progressive CKD. Hydralazine as needed for BP spikes. Waiting for outpatient hemodialysis seat for discharge.
[2021-04-02] MEDS: ONDANSETRON 4 MG/2 ML VIAL IV PRN (13:05)
[2021-04-02 18:42] LABS: HBsAG Nonreactive (Nonreactive)
[2021-04-03] MEDS: HYDRALAZINE HCL 20 MG/ML VIAL IV PRN ×3 (00:39→15:45)
[2021-04-03 05:55] LABS: Absolute Lymphocytes (CBC) 0.8 K/uL (0.7-4.9); Basophils % 0.6 % (0-1.3); Hematocrit 26.3 % (36.0-45.0); Lymphocytes % 10.7 % (15.3-44.8); MPV 7.9 fL (7.6-11.3); RBC Red Blood Cell Count 2.93 M/uL (3.86-4.86)
[2021-04-03 06:36] LABS: Potassium 3.6 mmol/L (3.5-5.1)
[2021-04-03 08:08] VITALS: O2SAT 95
[2021-04-03] MEDS: FUROSEMIDE 40 MG/4 ML VIAL IV SCH (08:35)
[2021-04-03] MEDS: DOCUSATE NA 100 MG CAP PO SCH (08:36)
[2021-04-03] MEDS: LOSARTAN POTASSIUM 50 MG TABLET PO SCH (08:36)
[2021-04-03] MEDS: HYDRALAZINE HCL 25 MG TABLET PO SCH (08:36)
[2021-04-03] MEDS: AMLODIPINE 10 MG TAB PO SCH (08:36)
[2021-04-03] MEDS: CALCITROL 0.25 MCG CAP PO SCH (08:36)
[2021-04-03] MEDS: SODIUM BICARB 325 MG TAB PO SCH ×3 (08:37→15:45)
[2021-04-03] MEDS: NEPRO SHAKE 237 ML CAN PO SCH (08:37)
[2021-04-03] MEDS: SEVELAMER CARBONATE 800 MG TABLET PO SCH ×3 (08:37→15:45)
[2021-04-03] MEDS: METOPROLOL TAR 50 MG TAB PO SCH (08:37)
[2021-04-03] MEDS ORDERED: MANNITOL 20% 500 ML BAG IV PRN ×2 (13:00)
[2021-04-03] MEDS: EPOETIN ALFA 10,000 UNIT/ML VIAL SQ SCH (17:00)
[2021-04-03 17:05] VITALS: TEMP 98.1
--- NOTE | 2021-04-03 17:30 | P.DS ---
Admission Date: 03/28/21 Discharge Date: 04/03/21 Primary Care Provider: Dr. Pina Disposition: DC HOME/HOME HEALTH CARE Discharge Condition: FAIR Reason for Admission: Dyspnea - Problems (1) Acute renal failure superimposed on chronic kidney disease Current Visit: Yes Status: Acute (2) Hyperkalemia Current Visit: Yes Status: Acute (3) Bilateral pleural effusion Current Visit: Yes Status: Acute (4) Pneumonia Current Visit: Yes Status: Acute (5) Metabolic acidosis Current Visit: Yes Status: Acute (6) Malignant hypertension Current Visit: Yes Status: Acute Brief History of Present Illness: 85-year-old woman with a past medical history of hypertension, coronary artery disease, renal insufficiency was brought to the emergency department due to progressive shortness of breath of 2 days duration. Patient reports nonproductive cough, denies any fever or pleurisy. Work-up in the emergency department with CT demonstrated bilateral pleural effusion, bilateral lung infiltrate and a possible lung mass. Blood work showed significantly elevated serum creatinine, hyperkalemia and metabolic acidosis. Blood pressure severely elevated on presentation, systolic in the 200s. Troponin negative, BNP markedly elevated. Patient with progressive CKD versus acute renal failure, bilateral pleural effusion and bilateral infiltrates. She is admitted for further management. Hospital Course: Patient admitted to the medical floor and put on a trial of IV Lasix and metolazone per nephrology recommendation. Patient renal function did not respond to medical therapy. Dialysis catheter was inserted and patient underwent multiple hemodialysis Her urine culture is growing E. coli. CT chest demonstrated bilateral infiltrates. Patient completed antibiotics treatment for UTI and pneumonia. She tolerated renal diet Blood pressure was elevated and it was managed with hydralazine, Norvasc and metoprolol. Losartan was held briefly and resumed once patient started hemodialysis. Blood pressure still elevated. Hydralazine increased to 50 mg twice daily on discharge. Patient clinically improved. Currently asymptomatic and deemed stable for discharge. She will continue routine hemodialysis on Saturday and Saturdays. Vital Signs/Physical Exam: Temp Pulse Resp BP Pulse Ox 98.1 F 76 18 176/73 H 96 04/03/21 16:00 04/03/21 16:00 04/03/21 16:00 04/03/21 16:00 04/03/21 16:00 General: Alert, In no apparent distress, Oriented x3 HEENT: Mucous membr. moist/pink Neck: JVD not distended Respiratory: Clear to auscultation bilaterally, Normal air movement Cardiovascular: No edema, Regular rate/rhythm, Normal S1 S2 Gastrointestinal: Soft and benign, Non-distended, No tenderness Musculoskeletal: No swelling Integumentary: No rashes Neurological: Normal strength at 5/5 x4 extr Laboratory Data at Discharge: WBC 7.80 K/uL (4.3-10.9) D 04/03/21 05:30 Hgb 8.6 g/dL (12.0-15.0) L 04/03/21 05:30 Hct 26.3 % (36.0-45.0) L D 04/03/21 05:30 Plt Count 191 K/uL (152-406) D 04/03/21 05:30 PT 10.9 SECONDS (9.5-12.5) 03/28/21 12:23 INR 0.95 03/28/21 12:23 Sodium 141 mmol/L (136-145) 04/03/21 05:30 Potassium 3.6 mmol/L (3.5-5.1) 04/03/21 05:30 BUN 39 mg/dL (7-18) H 04/03/21 05:30 Creatinine 5.42 mg/dL (0.55-1.3) H* 04/03/21 05:30 Glucose 114 mg/dL (74-106) H 04/03/21 05:30 Uric Acid 7.6 mg/dL (2.6-6.0) H 03/29/21 06:02 Phosphorus 5.4 mg/dL (2.5-4.9) H 04/01/21 05:38 Magnesium 2.0 mg/dL (1.8-2.4) 03/29/21 06:02 Total Bilirubin 0.6 mg/dL (0.2-1.0) 03/28/21 12:23 AST 32 U/L (15-37) 03/28/21 12:23 ALT 26 U/L (12-78) 03/28/21 12:23 Alkaline Phosphatase 85 U/L (45-117) 03/28/21 12:23 Triglycerides 87 mg/dL (<150) 03/29/21 06:02 Cholesterol 143 mg/dL (<200) 03/29/21 06:02 HDL Cholesterol 49 mg/dL (40-60) 03/29/21 06:02 Cholesterol/HDL Ratio 2.92 03/29/21 06:02 Home Medications: Alendronate Sodium [Fosamax] 70 mg PO EVERY 7TH DAY 04/29/19 Amlodipine [Norvasc*] 10 mg PO DAILY 04/29/19 Atorvastatin Calcium [Lipitor*] 20 mg PO BEDTIME 04/29/19 Levothyroxine [Synthroid*] 25 mcg PO [id number] 04/29/19 Losartan Potassium [Cozaar*] 100 mg PO DAILY 04/29/19 Prasugrel HCl [Effient] 10 mg PO DAILY 04/29/19 traMADol HCL [Ultram*] 50 mg PO BEDTIME 04/29/19 Metoprolol Tartrate [Lopressor*] 50 mg PO BID #60 tab 04/30/19 Calcitrol [Rocaltrol*] 0.5 mcg PO DAILY #30 cap 04/03/21 Docusate [Colace Cap*] 100 mg PO BID #60 cap 04/03/21 Epoetin [Retacrit] 10,000 unit SQ M,W,F vial 04/03/21 Heparin [Heparin 1,000 units/mL *] 6,000 unit IV EVERY HD PRN vial 04/03/21 Hydralazine [Apresoline*] 50 mg PO BID #120 tab 04/03/21 Mannitol 25% [Mannitol*] 12.5 gm IV EVERY HD PRN vial 04/03/21 Nepro Shake [Nepro*] 237 ml PO BID #60 can 04/03/21 Sevelamer Carbonate [Renvela*] 800 mg PO TIDWM #90 tablet 04/03/21 Sodium Bicarbonate 650 mg PO QID #120 tablet 04/03/21 New Medications: Hydralazine [Apresoline*] 50 mg PO BID #120 tab Docusate [Colace Cap*] 100 mg PO BID #60 cap Nepro Shake [Nepro*] 237 ml PO BID #60 can Sevelamer Carbonate [Renvela*] 800 mg PO TIDWM #90 tablet Calcitrol [Rocaltrol*] 0.5 mcg PO DAILY #30 cap Sodium Bicarbonate 650 mg PO QID #120 tablet Physician Discharge Instructions: [facility] HD for Saturday, , Saturday at 10:45am. Arrive at 1015 for 1st visit. Diet: Renal Activity: Fall precautions Followup: Carlos Manuel Porter DO [ACTIVE - CAN ADMIT] - 1-2 Weeks Cuong Pina MD [Primary Care Provider] - Time spent managing pt's care (in minutes): 40
[2021-04-03 18:06] VITALS: BMI 16.0
[2021-04-03 18:29] VITALS: BP 146/76
--- NOTE | 2021-04-03 19:46 | RAD REPORT ---
EXAM DESCRIPTION: RAD - Fluoroscopy <1 Hour - 04/03/2021 7:53 am CLINICAL HISTORY: DIALYSIS CATH PLCMNT COMPARISON: Urinary Bladder dated 02/07/2018; Chest Single View dated 03/31/2021 FINDINGS/IMPRESSION: Intraoperative fluoroscopy showing placement of a right IJ approach dialysis ca theter. Total fluoro time: 0 minutes Total dose: 0.41 mGy
== END 2021-04-03 19:15 | disposition home or self-care (01) | DRG 673 ==
LOC: ER 12:01 → ERHOLD 15:01 → 2ND 17:18
PROVIDERS: ADMIT Internal Medicine; ATTEND Internal Medicine
PROC: 02HV33Z Insertion of Infusion Device into Superior Vena Cava, Percutaneous Approach (ICD-10-PCS; 2021-03-31)
PROC: 5A1D70Z Performance of Urinary Filtration, Intermittent, Less than 6 Hours Per Day (ICD-10-PCS; 2021-03-31)
PROC: 0JH63XZ Insertion of Tunneled Vascular Access Device into Chest Subcutaneous Tissue and Fascia, Percutaneous Approach (ICD-10-PCS; principal; 2021-03-31 08:15)
PROC: 5A1D70Z Performance of Urinary Filtration, Intermittent, Less than 6 Hours Per Day (ICD-10-PCS; 2021-04-01)
PROC: 5A1D70Z Performance of Urinary Filtration, Intermittent, Less than 6 Hours Per Day (ICD-10-PCS; 2021-04-03)
DX: N17.9 Acute kidney failure, unspecified (principal); J18.9 Pneumonia, unspecified organism; I50.33 Acute on chronic diastolic (congestive) heart failure; N39.0 Urinary tract infection, site not specified; E87.2 Acidosis; I13.0 Hypertensive heart and chronic kidney disease with heart failure and stage 1 through stage 4 chronic kidney disease, or unspecified chronic kidney disease; E44.0 Moderate protein-calorie malnutrition; Z68.1 Body mass index [BMI] 19.9 or less, adult; N18.4 Chronic kidney disease, stage 4 (severe); B96.20 Unspecified Escherichia coli [E. coli] as the cause of diseases classified elsewhere; B95.2 Enterococcus as the cause of diseases classified elsewhere; E87.5 Hyperkalemia; E83.51 Hypocalcemia; E83.42 Hypomagnesemia; E88.89 Other specified metabolic disorders; D63.8 Anemia in other chronic diseases classified elsewhere; R91.8 Other nonspecific abnormal finding of lung field; E03.9 Hypothyroidism, unspecified; I25.10 Atherosclerotic heart disease of native coronary artery without angina pectoris; Z86.73 Personal history of transient ischemic attack (TIA), and cerebral infarction without residual deficits; Z20.822 Contact with and (suspected) exposure to COVID-19
CPT/HCPCS: 36415; 36430; 71045; 71250; 74176; 76000; 80048; 80061; 80069; 80076; 81001; 81003; 81015; 82550; 82570; 82784; 83520; 83540; 83605; 83735; 83880; 84100; 84145; 84156; 84300; 84466; 84484; 84550; 85014; 85018; 85025; 85610; 86021; 86038; 86160; 86317; 86334; 86704; 86850; 86900; 86901; 87040; 87077; 87086; 87088; 87186; 87340; 90935; 93005; 94760; 97116; 97161; 97530; 99285; C1752; J0360; J0456; J0690; J1644; J1940; J2150; J2270; J2405; J2704; J3010; J3475; J7040; J7050; P9016; Q5105; U0003

== ENCOUNTER 2021-04-06 12:04 | Observation (INO) | payer OTHER ==
--- NOTE | 2021-04-06 15:02 | ER ---
Nurse's Notes [facility] Name: Isadora Jeffery Age: 85 yrs Sex: Female : 1935 Arrival Date: 04/06/2021 Time: 12:09 Bed 19 Private MD: Brown Pina R Diagnosis: Leakage of vascular dialysis catheter Presentation: 04/06 13:38 Chief complaint: Patient states: Right chest wall dialysis port placed here about a jl7 month ago. Went to dialysis and they said the line as a leak in it from the clamped that was placed here and told me to come here. Coronavirus screen: At this time, the client does not indicate any symptoms associated with coronavirus-19. Ebola Screen: No symptoms or risks identified at this time. Initial Sepsis Screen: Does the patient meet any 2 criteria? No. Patient's initial sepsis screen is negative. Does the patient have a suspected source of infection? No. Patient's initial sepsis screen is negative. Risk Assessment: Do you want to hurt yourself or someone else? Patient reports no desire to harm self or others. Onset of symptoms is unknown. Care prior to arrival: None. 13:38 Method Of Arrival: Wheelchair jl7 13:38 Acuity: ROMELIA 3 jl7 Triage Assessment: 13:41 General: Appears in no apparent distress. uncomfortable, Behavior is calm, cooperative, jl7 appropriate for age. Pain: Denies pain. Complains of pain in dialysis port site Pain currently is 8 out of 10 on a pain scale. Historical: - Allergies: 13:41 Codeine; jl7 - Home Meds: 14:37 alendronate 70 mg Oral tab 1 tab once wkly [Active]; amlodipine 10 mg tab 1 tab once tw2 daily [Active]; aspirin 81 mg Oral tab daily [Active]; atorvastatin 20 mg Oral tab 1 tab once daily [Active]; cyanocobalamin (vitamin B-12) 1,000 mcg/mL injection soln 1 mL once moly [Active]; furosemide 20 mg Oral tab 2 times per day [Active]; hydralazine 25 mg Oral tab 1 tab three times a day [Active]; hydrocodone-acetaminophen 5-325 mg Oral tab 0.5 tab every 4-6 hours [Active]; levothyroxine 25 mcg tab 1 tab once daily [Active]; losartan 100 mg Oral tab 1 tab once daily [Active]; mirtazapine 15 mg Oral tab nightly [Active]; metoprolol tartrate 50 mg Oral tab 1 tab once daily [Active]; prasugrel 10 mg Oral tab [Active]; - PMHx: 13:41 CVA; Depression; Hyperlipidemia; Hypertension; Kidney disease; dialysis; jl7 - Immunization history:: Client reports receiving the 2nd dose of the Covid vaccine, Moderna. - Social history:: Smoking status: Patient denies any tobacco usage or history of. Screenin:36 Abuse screen: Denies threats or abuse. Nutritional screening: No deficits noted. tw2 Tuberculosis screening: No symptoms or risk factors identified. Fall Risk Secondary diagnosis (15 points) impaired mobility. Assessment: 14:37 Reassessment: provider GARRICK Huddleston at bedside at this time. tw2 14:40 General: Appears in no apparent distress. slender, well groomed, Behavior is calm, tw2 cooperative, appropriate for age. Pain: Denies pain. Neuro: Level of Consciousness is awake, alert, obeys commands, Oriented to person, place, time, situation. Cardiovascular: Dialysis shunt: in the anterior aspect of right upper chest, noted hemostat to right catheter tube under pinch clamp. no bleeding noted.. Respiratory: Airway is patent Respiratory effort is unlabored, labored, Respiratory pattern is regular, symmetrical. Musculoskeletal: Range of motion: intact in all extremities. 15:02 Reassessment: Patient appears in no apparent distress at this time. provider at bedside tw2 discussing poc for sx replacement of dialysis catheter at this time. 15:49 Reassessment: lab at bedside at this time for blood draw. tw2 15:52 Reassessment: LEWIS Roca from OR at bedside at this time to transport pt to OR. tw2 15:58 Reassessment: Patient appears in no apparent distress at this time. Patient and/or tw2 family updated on plan of care and expected duration. Pain level reassessed. Patient is alert, oriented x 3, equal unlabored respirations, skin warm/dry/pink. Vital Signs: 13:38 BP 197 / 71; Pulse 89; Resp 17; Temp 97.6; Pulse Ox 99% on R/A; Weight 48.53 kg; Height jl7 5 ft. 7 in. (170.18 cm); Pain 8/10; 15:00 BP 205 / 79; Pulse 86; Resp 17; Pulse Ox 98% on R/A; tw2 15:58 BP 181 / 114; Pulse 90; Resp 17; Pulse Ox 98% on R/A; tw2 13:38 Body Mass Index 16.76 (48.53 kg, 170.18 cm) jl7 ED Course: 12:09 Patient arrived in ED. mr 12:09 Brown Pina MD is Private Physician. mr 13:41 Triage completed. jl7 13:43 Arm band placed on right wrist. Patient placed in waiting room, Patient notified of jl7 wait time. 14:22 Warm blanket given. tw2 14:26 Dennys Watts PA is PHCP. jr8 14:26 Ian Mary MD is Attending Physician. jr8 14:33 Zehra Espana RN is Primary Nurse. tw2 14:36 Bed in low position. Call light in reach. Side rails up X2. Adult w/ patient. Pulse ox tw2 on. NIBP on. 14:[address] Vela the hospitalist prison keeper for [facility] with Dr. Mary for eb patient transfer consultation. 15:01 Everett Julien DO is Hospitalizing Provider. jr8 15:50 Inserted saline lock: 22 gauge in right forearm, using aseptic technique. ,using tw2 aseptic technique. by LEWIS Lopez. Missed attempt(s): 22 gauge in left forearm. by LEWIS Lopez. Bleeding controlled, band aid applied, catheter tip intact. 15:52 No provider procedures requiring assistance completed. Patient admitted, IV remains in tw2 place. Administered Medications: No medications were administered Outcome: 15:02 Decision to Hospitalize by Provider. jr8 15:52 Admitted to OR accompanied by nurse, via stretcher, with chart, Report called to tw2 LEWIS Roca 15:52 Condition: stable 15:52 Instructed on the need for admit. 15:59 Patient left the ED. tw2 Signatures: Den Isadora mr Dennys Watts PA PA jr8 Zehra Espana RN RN tw2 Vineet Ivory RN RN jl7 Elizabeth Young Corrections: (The following items were deleted from the chart) 13:38 Chief complaint: Patient states: Left chest wall dialysis port placed here about jl7 a month ago. Went to dialysis and they said the line as a leak in it from the clamped that was placed here and told me to come here jl7 43 13:41 Pain: Denies pain. jl7 7
--- NOTE | 2021-04-06 15:02 | EDPHYS ---
Physician Documentation [facility] Name: Isadora Jeffery Age: 85 yrs Sex: Female : 1935 Arrival Date: 04/06/2021 Time: 12:09 Bed 19 Private MD: Brown Pina R ED Physician Ian Mary HPI: 04/06 15:02 This 85 yrs old Female presents to ER via Wheelchair with complaints of Dialysis port jr8 problem. 15:02 The patient has not experienced similar symptoms in the past. The patient has not jr8 recently seen a physician. Patient was recently discharged three days ago after having dialysis catheter placed. Went for first dialysis session today and found that one of the ports was cut and leaking. Was sent to ED for further evaluation since dialysis access center is closed . Historical: - Allergies: 13:41 Codeine; jl7 - Home Meds: 14:37 alendronate 70 mg Oral tab 1 tab once wkly [Active]; amlodipine 10 mg tab 1 tab once tw2 daily [Active]; aspirin 81 mg Oral tab daily [Active]; atorvastatin 20 mg Oral tab 1 tab once daily [Active]; cyanocobalamin (vitamin B-12) 1,000 mcg/mL injection soln 1 mL once moly [Active]; furosemide 20 mg Oral tab 2 times per day [Active]; hydralazine 25 mg Oral tab 1 tab three times a day [Active]; hydrocodone-acetaminophen 5-325 mg Oral tab 0.5 tab every 4-6 hours [Active]; levothyroxine 25 mcg tab 1 tab once daily [Active]; losartan 100 mg Oral tab 1 tab once daily [Active]; mirtazapine 15 mg Oral tab nightly [Active]; metoprolol tartrate 50 mg Oral tab 1 tab once daily [Active]; prasugrel 10 mg Oral tab [Active]; - PMHx: 13:41 CVA; Depression; Hyperlipidemia; Hypertension; Kidney disease; dialysis; jl7 - Immunization history:: Client reports receiving the 2nd dose of the Covid vaccine, Moderna. - Social history:: Smoking status: Patient denies any tobacco usage or history of. ROS: 15:02 Eyes: Negative for injury, pain, redness, and discharge, ENT: Negative for injury, jr8 pain, and discharge, Neck: Negative for injury, pain, and swelling, Cardiovascular: Negative for chest pain, palpitations, and edema, Respiratory: Negative for shortness of breath, cough, wheezing, and pleuritic chest pain, Abdomen/GI: Negative for abdominal pain, nausea, vomiting, diarrhea, and constipation, Back: Negative for injury and pain, MS/Extremity: Negative for injury and deformity, Skin: Negative for injury, rash, and discoloration, Neuro: Negative for headache, weakness, numbness, tingling, and seizure. Exam: 15:02 Constitutional: This is a well developed, well nourished patient who is awake, alert, jr8 and in no acute distress. Cardiovascular: Regular rate and rhythm with a normal S1 and S2. No gallops, murmurs, or rubs. Normal PMI, no JVD. No pulse deficits. Respiratory: Lungs have equal breath sounds bilaterally, clear to auscultation and percussion. No rales, rhonchi or wheezes noted. No increased work of breathing, no retractions or nasal flaring. Skin: Warm, dry with normal turgor. Normal color with no rashes, no lesions, and no evidence of cellulitis. MS/ Extremity: Pulses equal, no cyanosis. Neurovascular intact. Full, normal range of motion. Neuro: Awake and alert, GCS 15, oriented to person, place, time, and situation. Cranial nerves II-XII grossly intact. Motor strength 5/5 in all extremities. Sensory grossly intact. Cerebellar exam normal. Normal gait. Vital Signs: 13:38 BP 197 / 71; Pulse 89; Resp 17; Temp 97.6; Pulse Ox 99% on R/A; Weight 48.53 kg; Height jl7 5 ft. 7 in. (170.18 cm); Pain 8/10; 15:00 BP 205 / 79; Pulse 86; Resp 17; Pulse Ox 98% on R/A; tw2 15:58 BP 181 / 114; Pulse 90; Resp 17; Pulse Ox 98% on R/A; tw2 13:38 Body Mass Index 16.76 (48.53 kg, 170.18 cm) 7 MDM: 14:26 Patient medically screened. [facility] [place] 15:02 Data reviewed: vital signs, nurses notes, lab test result(s), and as a result, I will jr8 admit patient. Data interpreted: Pulse oximetry: on room air is 98 %. Interpretation: normal. Counseling: I had a detailed discussion with the patient and/or guardian regarding: the historical points, exam findings, and any diagnostic results supporting the discharge/admit diagnosis, lab results, the need for further work-up and treatment in the hospital. ED course: Consulted Dr. Dasilva about patient. Will see patient and replaced dialysis catheter . 04/06 15:01 Order name: CBC with Diff jr8 04/06 15: Order name: Basic Metabolic Panel jr8 04/06 15: Order name: IV; Complete Time: 15:48 jr8 Administered Medications: No medications were administered Disposition: 17:06 Co-signature as Attending Physician, Ian Mary MD I agree with the assessment and kdr plan of care. Disposition Summary: 04/06/21 15:02 Hospitalization Ordered Hospitalization Status: Observation jr8 Provider: Everett Julien [facility] [place] Location: Telemetry/MedSurg (observation) jr8 Condition: Stable jr8 Problem: new jr8 Symptoms: are unchanged jr8 Bed/Room Type: Standard [facility] [place] Room Assignment: [facility] [place] Diagnosis - Leakage of vascular dialysis catheter jr8 Forms: - Medication Reconciliation Form jr8 - SBAR form jr8 Signatures: Dispatcher [employer] EDMS Ian Mary MD MD kdr Roszak, Josh, PA PA jr8 Zehra Espana, RN RN tw2 Vineet Ivory RN RN jl7
[2021-04-06] MEDS ORDERED: HYDROCODONE/APAP 5/325 MG TAB PO PRN (15:42)
[2021-04-06] MEDS ORDERED: ACETAMINOPHEN 500 MG TAB PO PRN (15:42)
[2021-04-06] MEDS ORDERED: ONDANSETRON 4 MG/2 ML VIAL IV PRN (15:42)
[2021-04-06] MEDS ORDERED: MIRTAZAPINE 15 MG TAB PO PRN (15:42)
--- NOTE | 2021-04-06 15:45 | P.HP ---
Certification for Inpatient Patient admitted to: Observation With expected LOS: <2 Midnights Patient will require the following post-hospital care: None Practitioner: I am a practitioner with admitting privileges, knowledge of patient current condition, hospital course, and medical plan of care. Services: Services provided to patient in accordance with Admission requirements found in Title 42 Section 412.3 of the Code of Federal Regulations Patient History Date of Service: 04/06/21 Primary Care Provider: Dr. Ramirez; Nephrology-Dr. Del Rio Reason for admission: Leakage of dialysis catheter History of Present Illness: 85-year-old female with history of prior CVA, end-stage renal disease on hemodialysis, hypertension, hypothyroidism, CHF. Patient recently started dialysis. She was recently discharged. She was placed to have dialysis today. Upon initiating dialysis they noted that her catheter was leaking. She was sent to the ER for further evaluation. She denied any chest pain, shortness of breath, nausea or vomiting. Patient evaluated emergency room. Dialysis catheter was found to have a leak. Lab pending. Patient was admitted for replacement of dialysis catheter. Allergies codeine Allergy (Severe, Verified 04/02/21 13:57) Nausea/Vomiting Home medications list reviewed: Yes Home Medications: Alendronate Sodium [Fosamax] 70 mg PO EVERY 7TH DAY 04/29/19 Amlodipine [Norvasc*] 10 mg PO DAILY 04/29/19 Atorvastatin Calcium [Lipitor*] 20 mg PO BEDTIME 04/29/19 Levothyroxine [Synthroid*] 25 mcg PO [id number] 04/29/19 Losartan Potassium [Cozaar*] 100 mg PO DAILY 04/29/19 Prasugrel HCl [Effient] 10 mg PO DAILY 04/29/19 traMADol HCL [Ultram*] 50 mg PO BEDTIME 04/29/19 Metoprolol Tartrate [Lopressor*] 50 mg PO BID #60 tab 04/30/19 Calcitrol [Rocaltrol*] 0.5 mcg PO DAILY #30 cap 04/03/21 Docusate [Colace Cap*] 100 mg PO BID #60 cap 04/03/21 Epoetin [Retacrit] 10,000 unit SQ M,W,F vial 04/03/21 Heparin [Heparin 1,000 units/mL *] 6,000 unit IV EVERY HD PRN vial 04/03/21 Hydralazine [Apresoline*] 50 mg PO BID #120 tab 04/03/21 Mannitol 25% [Mannitol*] 12.5 gm IV EVERY HD PRN vial 04/03/21 Nepro Shake [Nepro*] 237 ml PO BID #60 can 04/03/21 Sevelamer Carbonate [Renvela*] 800 mg PO TIDWM #90 tablet 04/03/21 Sodium Bicarbonate 650 mg PO QID #120 tablet 04/03/21 - Past Medical/Surgical History Diabetic: No -: Hypertension -: Hyperlipidemia -: History CVA -: Carotid arterial disease with prior stent -: CAD -: Hypothyroidism -: CHF -: Depression with anxiety -: Chronic pain -: Carotid stent -: Right partial hip replacement Psychosocial/ Personal History: Patient is a . She lives by herself. - Family History Family History: Reviewed- Non-Contributory - Family History Father -: Stroke Mother -: Diabetes - Social History Smoking Status: Never smoker Alcohol use: No CD- Drugs: No Caffeine use: Yes Place of Residence: Home Review of Systems General: As per HPI Eyes: Unremarkable ENT: Unremarkable Respiratory: Unremarkable Cardiovascular: Unremarkable Gastrointestinal: Unremarkable Genitourinary: Unremarkable Musculoskeletal: Pedal edema, As per HPI Integumentary: As per HPI Neurological: Unremarkable Lymphatics: Unremarkable Assessment and Plan - Plan COVID: Pending Physical Exam: GENERAL: The patient is a well-developed, well-nourished, in no apparent distress. Alert and oriented x3. VITAL SIGNS: Reviewed HEENT: Head is normocephalic and atraumatic. Extraocular muscles are intact. Pupils are equal, round, and reactive to light and accommodation. Nares appeared normal. Mouth is well hydrated and without lesions. Mucous membranes are moist. NECK: Supple. No carotid bruits. No lymphadenopathy or thyromegaly. LUNGS: Clear to auscultation. No crackles or wheezes are heard. HEART: Regular rate and rhythm, no appreciable gallops, rubs, murmurs or extra heart sounds ABDOMEN: Soft, nontender, and nondistended. Positive bowel sounds. No hepatosplenomegaly was noted. EXTREMITIES: Without any cyanosis, clubbing, rash, lesions or peripheral edema. NEUROLOGIC: The patient is oriented to person, place and time. Strength and sensation are grossly intact. Face is symmetric. SKIN: Mild edema to the lower extremities. Impression: Leakage of dialysis catheter End-stage renal disease on hemodialysis Hypertension Chronic CHF Hyperlipidemia Anemia of chronic disease with B12 deficiency Hypothyroidism Depression with anxiety Chronic pain Plan: Leakage of dialysis catheter: Patient will be admitted for further evaluation and treatment. Case discussed with nephrology and surgery. Surgery will replace dialysis catheter this p.m. Nephrology will order dialysis for tomorrow morning. Anticipate discharge after dialysis tomorrow. End-stage renal disease on hemodialysis: Patient gets dialysis every Saturday, and Saturday. Patient will get dialysis tomorrow. Patient can be discharged home after dialysis tomorrow and restart dialysis next Saturday the reafter. Hypertension: Restart home medications including Norvasc 10 mg daily, hydralazine 25 mg 1 pill 3 times a day, losartan 100 mg daily, and metoprolol 50 mg daily. Recommend to maintain blood pressure less than 130/80. Will monitor and adjust medication. Chronic CHF: Continue with 1500 cc per day fluid restriction. Continue with Lasix 20 mg BID. Hyperlipidemia: Continue Lipitor 20 mg daily. Anemia of chronic disease with B12 deficiency: Continue vitamin B12 supplementation daily. Hypothyroidism: Continue Levoxyl 25 mcg daily. Depression with anxiety: Continue mirtazapine 15 mg at bedtime. Chronic pain: Continue hydrocodone half a tablet as needed. Code Status: Full Code DVT prophylaxis: Heparin Advanced Care Planning-30 minutes: Home at discharge Discharge Plan: Home Plan to discharge in: 24 Hours - Advance Directives Does patient have a Living Will: No Does patient have a Durable POA for Healthcare: Yes - Code Status/Comfort Care Code Status Assessed: Yes (Full code) Time Spent Managing Pts Care (In Minutes): 55
[2021-04-06] MEDS ORDERED: NA CHLORIDE 0.9% 500 ML ONE (16:03)
[2021-04-06] MEDS ORDERED: CEFAZOLIN SODIUM 1 GM/VIAL ONE (16:04)
[2021-04-06] MEDS ORDERED: LIDOCAINE 1% MPF 30 ML VIAL ONE (16:41)
[2021-04-06] MEDS ORDERED: HEPA 1000U/500MLS 1,000 UNIT/500 ML BAG IV ONE (16:44)
[2021-04-06] MEDS ORDERED: NS 0.9% VIAL 10 ML ONE (16:44)
[2021-04-06] MEDS ORDERED: HEPARIN 5000 UNIT/ML 1 ML VIAL ONE (16:44)
--- NOTE | 2021-04-06 16:46 | PREOPCON ---
Date of Consultation: 04/06/2021 Reason For Consultation: Malfunctioning Tesio catheter. History Of Present Illness: The patient is an 85-year-old female, who underwent placement of Tesio c atheter last Nickolas and subsequently had a couple of dialysis sessions in the hospital without any di fficulty; however, she showed up at the outpatient dialysis center and when the nurse was aspirating from the venous port, there was air and did show a small leak in the catheter on the venous side. As to the etiology of how this happened, it is unclear. The patient is awake, alert. No sore throat, runny nose, cough, headaches, or dizziness. No chest pain. No fever or chills. Review of Systems: Otherwise unremarkable. Past Medical History: Significant for hypertension, hyperlipidemia, history of stroke, coronary cata ry disease. Past Surgical History: Recent Tesio catheter placement, stent in her carotid artery. Allergies: CODEINE. Social History: The patient does not smoke or drink. Family History: Noncontributory. Physical Examination: Vital Signs: Her vitals are stable. She is afebrile. General: She is awake, alert, a little confused. Head and Neck: No masses. Chest: Clear. Heart: S1, S2. Abdomen: Soft. Extremities: Neurovascularly intact. Neuro: Nonfocal. Examination of the right chest reveals a Tesio catheter that is exiting, there is a clamp on the venous side and has blood in there and no surrounding erythema, warmth or edema. Assessment: An 85-year-old female with multiple medical problems, end-stage renal disease and malfun ctioned Tesio catheter. Plan: Case was discussed with Dr. Julien and Dr. Pablo. We will proceed with removal of the malf unctioned Tesio catheter and replacement. We will try to do it over a guidewire if possible. The pa tient understands risks, benefits, and alternatives and agrees to procedure. as well. /MODL Voice ID: [id number] Report ID: [id number]
[2021-04-06] MEDS ORDERED: NA CHLORIDE 0.9% 100 ML IV ONE (16:47)
[2021-04-06 16:51] LABS: Hematocrit 26.5 % (36.0-45.0); Lymphocytes % 12.2 % (15.3-44.8); MPV 8.1 fL (7.6-11.3); RBC Red Blood Cell Count 2.95 M/uL (3.86-4.86)
[2021-04-06] MEDS ORDERED: propofoL 200 MG/20 ML VIAL IV ONE (16:55)
[2021-04-06] MEDS: FUROSEMIDE 20 MG TABLET PO SCH (17:00)
[2021-04-06 17:01] LABS: Potassium 3.8 mmol/L (3.5-5.1)
[2021-04-06] MEDS: HEPARIN 5000 UNIT/ML 1 ML VIAL SQ SCH ×4 (17:27→17:32)
--- NOTE | 2021-04-06 17:39 | P.OP ---
Receiving Room Clerk: NONE,NONE Preoperative diagnosis: ESRD, Malfunctioning Tesio Catheter Postoperative diagnosis: same Primary procedure: Removal RIJ Tesio, Insertion RIJ Tesio Secondary procedure: Fluoroscopy Anesthesia: MAC Estimated blood loss: min Specimen: Tesio--For ID only Findings: as above Complications: None Transferred to: Recovery Room Condition: Good
--- NOTE | 2021-04-06 18:34 | OP ---
Date of Procedure: 04/06/2021 Surgeon: Xavier Dasilva MD [employer]ments Received: None. Preoperative Diagnoses: Malfunctioned Tesio catheter and end-stage renal disease. Postoperative Diagnoses: Malfunctioned Tesio catheter and end-stage renal disease. Procedure Performed: Removal of right IJ Tesio catheter and insertion of right IJ Tesio catheter, in terpretation of fluoroscopy. Estimated Blood Loss: Minimal. Specimen: None. Findings: Normal anatomy. Anesthesia: MAC. Complications: None. Disposition: The patient tolerated the procedure in stable condition and taken to Recovery in good g eneral condition. Procedure In Detail: The patient was brought to the OR and placed in supine position. MAC anesthesi a was begun. The patient was prepped and draped in usual sterile fashion. Lidocaine 1% infiltrated locally. Then, a long guidewire passed through the venous access port, position confirmed with fluor oscopy in the right side of the circulatory system. Then, the malfunctioning catheter was removed an d a tunneling device was used to tunnel new catheter between the 2 wounds and then vein dilated and o akua the dilator, the old guidewire was removed and a new guidewire placed and then Seldinger techniqu e was used and then the catheter placed via the sheath introducer under fluoroscopy to the right SVC, right atrial junction. Catheter flushed with heparin and packed with heparin with good blood flow a nd then 3-0 chromic used to approximate the subcutaneous tissue and 3-0 nylon used to secure the tube to the chest wall. Sterile dressing applied. The patient was awakened and taken to Recovery in goo d general condition. /MODL Voice ID: [id number] Report ID: [id number]
--- NOTE | 2021-04-06 19:32 | RAD REPORT ---
EXAM DESCRIPTION: RAD - Fluoroscopy <1 Hour - 04/06/2021 5:39 pm CLINICAL HISTORY: Device placement central venous catheter placement FINDINGS: A central venous catheter was placed with 1 limb in the superior vena cava. The other limb near the SVC atrial junction. 2 fluoroscopic spot images are submitted. The examination was performed by Dr. Dasilva . Fluoroscopy time 0 minutes
[2021-04-06] MEDS ORDERED: ATORVASTATIN 20 MG TAB PO SCH (21:00)
[2021-04-06] MEDS: HYDRALAZINE HCL 25 MG TABLET PO SCH (21:25)
[2021-04-07 06:01] LABS: Absolute Lymphocytes (CBC) 0.8 K/uL (0.7-4.9); Hematocrit 26.5 % (36.0-45.0); Lymphocytes % 13.1 % (15.3-44.8); MPV 7.7 fL (7.6-11.3); RBC Red Blood Cell Count 2.95 M/uL (3.86-4.86)
[2021-04-07 06:17] LABS: Magnesium 2.3 mg/dL (1.8-2.4)
--- NOTE | 2021-04-07 06:18 | P.DS ---
Admission Date: 04/06/21 Discharge Date: 04/07/21 Primary Care Provider: Dr. Ramirez; Nephrology-Dr. Del Rio Disposition: ROUTINE DISCHARGE Discharge Condition: GOOD Reason for Admission: Leakage of dialysis catheter Consultations: Surgery-Dr. Dasilva Nephrology-Dr. Del Rio Procedures: COVID: Pending Surgery: Date of procedure 04/06/2021 Surgeon: Dr. Dasilva Preoperative diagnosis: End-stage renal disease, malfunctioning Tesio catheter Postoperative diagnosis: Same Primary procedure: Removal RIJ Tessio, insertion RIJ Tessio Estimated blood loss: Minimal Follow up CXR: COMPARISON: Chest Single View dated 03/31/2021; Chest Single View dated 03/28/2021; Chest Pa And Lat (2 Views) dated 09/19/2020; Chest Pa And Lat (2 Views) dated 08/11/2020; Chest Abd Pelvis Wo Con dated 03/28/2021 FINDINGS: Lines: Right IJ approach dialysis catheter with distal tip overlying the superior cavoatrial junction . Lungs: Diffuse prominence of the pulmonary interstitium. Mild left basilar consolidation. Pleural: Small left pleural effusion. Cardiac: Cardiomegaly Bones: No acute fractures. IMPRESSION: Small left pleural effusion with underlying atelectasis and/or consolidation. Dialysis catheter with the tip in satisfactory position. Medical Problem List: Leakage of dialysis catheter End-stage renal disease on hemodialysis Hypertension Chronic CHF with small left pleural effusion likely chronic Hyperlipidemia Anemia of chronic disease with B12 deficiency Hypothyroidism Depression with anxiety Chronic pain CAD Brief History of Present Illness: 85-year-old female with history of prior CVA, end-stage renal disease on hemodialysis, hypertension, hypothyroidism, CHF. Patient recently started dialysis. She was recently discharged. She was placed to have dialysis today. Upon initiating dialysis they noted that her catheter was leaking. She was sent to the ER for further evaluation. She denied any chest pain, shortness of breath, nausea or vomiting. Patient evaluated emergency room. Dialysis catheter was found to have a leak. Lab pending. Patient was admitted for replacement of dialysis catheter. Hospital Course: Patient presented with malfunctioning dialysis catheter. Patient was admitted for treatment. Surgery replaced dialysis catheter. Patient did well postoperatively. Dialysis catheter in place and well-positioned. Patient received dialysis during the course of her stay. Patient overall stable. At d ischarge patient will continue with her dialysis as an outpatient. Case discussed with nephrology. Recommend follow-up with nephrology as an outpatient to further address and monitor. Patient with end-stage renal disease on hemodialysis. As mentioned above patient received dialysis. Patient will continue with dialysis as an outpatient. Patient will continue with Calcitrol 0.5 mcg daily. Patient with hypertension. Overall stable. At discharge patient will continue with her medications including Norvasc 10 mg daily, hydralazine 50 mg 1 pill twice daily, losartan 100 mg daily, and metoprolol 50 mg 1 pill twice daily. Recommend to maintain blood pressure less 130/80. If blood pressures remain above 140/90 further adjustment can be done by her PCP or nephrology. Patient with chronic diastolic CHF. Patient will continue with Lasix 20 mg 1 pill twice daily. Recommend to continue 1500 cc/day fluid restriction. Chest x- ray shows small left pleural effusion. This is likely chronic. This can be monitored as an outpatient. Recommend recheck chest x-ray in 2 to 4 weeks to monitor resolution. Patient with hyperlipidemia. At discharge patient will continue with Lipitor 20 mg daily. Patient with anemia chronic disease and B12 deficiency. At discharge patient will continue with vitamin B12 supplementation daily. Patient with hypothyroidism. At discharge patient will continue with levothy roxine 25 mcg daily. Patient with depression with anxiety. At discharge patient will continue with mirtazapine 15 mg at bedtime as needed for insomnia. Patient with chronic pain. At discharge patient will continue with tramadol 50 mg as needed for pain Patient with CAD. At discharge patient will continue with Effient 10 mg daily Vital Signs/Physical Exam: Temp Pulse Resp BP Pulse Ox 97.5 F 93 H 18 181/79 H 92 04/07/21 04:00 04/07/21 04:00 04/07/21 04:00 04/07/21 04:00 04/07/21 04:00 General: Alert, In no apparent distress, Oriented x3, Cooperative HEENT: Atraumatic Neck: Supple Respiratory: Clear to auscultation bilaterally Cardiovascular: Normal pulses, Regular rate/rhythm Gastrointestinal: Normal bowel sounds Musculoskeletal: No erythema, No tenderness, No warmth Integumentary: No tenderness/swelling, No erythema, No warmth, No cyanosis Neurological: Normal speech, Normal strength at 5/5 x4 extr, Normal tone Laboratory Data at Discharge: WBC 6.40 K/uL (4.3-10.9) D 04/07/21 05:31 Hgb 8.7 g/dL (12.0-15.0) L 04/07/21 05:31 Hct 26.5 % (36.0-45.0) L 04/07/21 05:31 Plt Count 183 K/uL (152-406) 04/07/21 05:31 Sodium 140 mmol/L (136-145) 04/06/21 16:23 Potassium 3.8 mmol/L (3.5-5.1) 04/06/21 16:23 BUN 46 mg/dL (7-18) H 04/06/21 16:23 Creatinine 5.99 mg/dL (0.55-1.3) H* 04/06/21 16:23 Glucose 107 mg/dL (74-106) H 04/06/21 16:23 Home Medications: Alendronate Sodium [Fosamax] 70 mg PO EVERY 7TH DAY 04/29/19 Atorvastatin Calcium [Lipitor*] 20 mg PO BEDTIME 04/29/19 Levothyroxine [Synthroid*] 25 mcg PO [id number] 04/29/19 Prasugrel HCl [Effient] 10 mg PO DAILY 04/29/19 traMADol HCL [Ultram*] 50 mg PO BEDTIME 04/29/19 Calcitrol [Rocaltrol*] 0.5 mcg PO DAILY #30 cap 04/03/21 Docusate [Colace Cap*] 100 mg PO BID #60 cap 04/03/21 Epoetin [Retacrit] 10,000 unit SQ M,W,F vial 04/03/21 Heparin [Heparin 1,000 units/mL *] 6,000 unit IV EVERY HD PRN vial 04/03/21 Mannitol 25% [Mannitol*] 12.5 gm IV EVERY HD PRN vial 04/03/21 Nepro Shake [Nepro*] 237 ml PO BID #60 can 04/03/21 Sevelamer Carbonate [Renvela*] 800 mg PO TIDWM #90 tablet 04/03/21 Amlodipine [Norvasc*] 10 mg PO DAILY #30 tab 04/07/21 Furosemide [Lasix*] 20 mg PO BIDL #60 tab 04/07/21 Hydralazine [Apresoline*] 50 mg PO BID #120 tab 04/07/21 Losartan Potassium [Cozaar*] 100 mg PO DAILY #60 04/07/21 Metoprolol Tartrate [Lopressor*] 50 mg PO BID #60 tab 04/07/21 New Medications: Hydralazine [Apresoline*] 50 mg PO BID #120 tab Losartan Potassium [Cozaar*] 100 mg PO DAILY #60 Furosemide [Lasix*] 20 mg PO BIDL #60 tab Metoprolol Tartrate [Lopressor*] 50 mg PO BID #60 tab Amlodipine [Norvasc*] 10 mg PO DAILY #30 tab Physician Discharge Instructions: Patient presented with malfunctioning dialysis catheter. Patient was admitted for treatment. Surgery replaced dialysis catheter. Patient did well postoperatively. Dialysis catheter in place and well-positioned. Patient received dialysis during the course of her stay. Patient overall stable. At discharge patient will continue with her dialysis as an outpatient. Case discussed with nephrology. Recommend follow-up with nephrology as an outpatient to further address and monitor. Patient with end-stage renal disease on hemodialysis. As mentioned above patient received dialysis. Patient will continue with dialysis as an outpatient. Patient will continue with Calcitrol 0.5 mcg daily. Patient with hypertension. Overall stable. At discharge patient will continue with her medications including Norvasc 10 mg daily, hydralazine 50 mg 1 pill twice daily, losartan 100 mg daily, and metoprolol 50 mg 1 pill twice daily. Recommend to maintain blood pressure less 130/80. If blood pressures remain above 140/90 further adjustment can be done by her PCP or nephrology. Patient with chronic diastolic CHF. Patient will continue with Lasix 20 mg 1 pill twice daily. Recommend to continue 1500 cc/day fluid restriction. Chest x- ray shows small left pleural effusion. This is likely chronic. This can be monitored as an outpatient. Recommend recheck chest x-ray in 2 to 4 weeks to monitor resolution. Patient with hyperlipidemia. At discharge patient will continue with Lipitor 20 mg daily. Patient with anemia chronic disease and B12 deficiency. At discharge patient will continue with vitamin B12 supplementation daily. Patient with hypothyroidism. At discharge patient will continue with levothyroxine 25 mcg daily. Patient with depression with anxiety. At discharge patient will continue with mirtazapine 15 mg at bedtime as needed for insomnia. Patient with chronic pain. At discharge patient will continue with tramadol 50 mg as needed for pain Patient with CAD. At discharge patient will continue with Effient 10 mg daily Diet: AHA Activity: Fall precautions Followup: Cuong Pina MD [Primary Care Provider] - Time spent managing pt's care (in minutes): 55
[2021-04-07] MEDS ORDERED: LEVOTHYROXINE SOD 0.025 MG TAB PO SCH (06:30)
[2021-04-07] MEDS ORDERED: LOSARTAN POTASSIUM 50 MG TABLET PO SCH (09:00)
[2021-04-07] MEDS ORDERED: ASPIRIN EC 81 MG TAB PO SCH (09:00)
[2021-04-07] MEDS ORDERED: METOPROLOL TAR 50 MG TAB PO SCH (09:00)
[2021-04-07] MEDS ORDERED: AMLODIPINE 10 MG TAB PO SCH (09:00)
[2021-04-07] MEDS ORDERED: PRASUGREL (EFFIENT) 10 MG TAB PO SCH (09:00)
[2021-04-07] MEDS ORDERED: CYANOCOBALAMIN 1,000 MCG TAB PO SCH (09:00)
[2021-04-07 09:05] VITALS: O2SAT 94
[2021-04-07] MEDS: FUROSEMIDE 20 MG TABLET PO SCH (09:12)
[2021-04-07] MEDS: HYDRALAZINE HCL 25 MG TABLET PO SCH ×2 (09:12→16:26)
--- NOTE | 2021-04-07 11:01 | RAD REPORT ---
EXAM DESCRIPTION: RAD - Chest Single View - 04/07/2021 10:52 am CLINICAL HISTORY: post tessio HD cath placement COMPARISON: Chest Single View dated 03/31/2021; Chest Single View dated 03/28/2021; Chest Pa And Lat (2 Views) dated 09/19/2020; Chest Pa And Lat (2 Views) dated 08/11/2020; Chest Abd Pelvis Wo Con dated 03/28/2021 FINDINGS: Lines: Right IJ approach dialysis catheter with distal tip overlying the superior cavoatri al junction . Lungs: Diffuse prominence of the pulmonary interstitium. Mild left basilar consolidation. Pleural: Small left pleural effusion. Cardiac: Cardiomegaly Bones: No acute fractures. Other: IMPRESSION: Small left pleural effusion with underlying atelectasis and/or consolidation. Dialysis c atheter with the tip in satisfactory position.
--- NOTE | 2021-04-07 12:10 | CON ---
Date of Consultation: 04/07/2021 Reason For Consult: ESRD on dialysis, malfunctioning dialysis catheter. History Of Present Illness: Ms. Jeffery is an 85-year-old female with past medical history significan t for history of hypertension, renovascular disease, who presented to [facility] previously, last admission recently for [id number] renal insufficiency and worsening shortness of breath. She was initiated on dialysis, started on dialysis and underwent 3 dialysis sessions and discharged home to follow up at [facility]. However, when she presented yesterday, her catheter w as noted to have a leak with a hole in the catheter and 1 of her ports was aspirating air and blood. Hence, she was sent back to the ER for catheter exchange. The patient has been evaluated by Dr. Ankit welch and has been gracious enough to replace the catheter yesterday. The patient is feeling okay and w as seen and examined during dialysis and she feels okay. Physical Examination: Vital Signs: Have been reviewed. Blood pressures are in the 180s to 200s range likely from anxiety. General: She appears in no acute distress. HEENT: Atraumatic head. Lungs: Clear to auscultation. Abdomen: Soft and nontender. Extremities: Showed no evidence of edema. Right-sided tunneled dialysis catheter in place and is wo rking well. Current Medications: Have been reviewed in detail. The patient is on losartan 100 mg a day, metopro lol 50 mg daily, hydralazine 25 mg p.o. 3 times a day, and amlodipine 10 mg a day. Impression: 1.End-stage renal disease, on dialysis. The patient is getting dialysis catheter replaced and getti ng dialysis done. 2.Uncontrolled hypertension. The patient does have renovascular disease and had previously gotten w orsening renal function secondary to being on ARB, but we will continue the ARB at this time. 3.Anemia secondary to end-stage renal disease, stable. Plan: Overall, the patient is doing okay. Continue to monitor blood pressures closely at home. Oka y to be discharged post HD. Blood pressures are being closely monitored. VV/MODL Voice ID: [id number] Report ID: [id number]
[2021-04-07 16:59] VITALS: BP 186/76; TEMP 97.5
[2021-04-08] MEDS ORDERED: AMLODIPINE 5 MG TAB PO SCH (09:00)
== END 2021-04-07 17:45 | disposition home or self-care (01) ==
LOC: ER 12:04 → ERHOLD 15:39 → 2ND 16:18
PROVIDERS: ADMIT Family Medicine; ATTEND Family Medicine
PROC: 0J2TXYZ Change Other Device in Trunk Subcutaneous Tissue and Fascia, External Approach (ICD-10-PCS; principal; 2021-04-06 15:30)
DX: T82.41XA Breakdown (mechanical) of vascular dialysis catheter, initial encounter (principal); I13.2 Hypertensive heart and chronic kidney disease with heart failure and with stage 5 chronic kidney disease, or end stage renal disease; I50.9 Heart failure, unspecified; N18.6 End stage renal disease; D63.1 Anemia in chronic kidney disease; Z99.2 Dependence on renal dialysis; J90 Pleural effusion, not elsewhere classified; E53.8 Deficiency of other specified B group vitamins; E78.5 Hyperlipidemia, unspecified; E03.9 Hypothyroidism, unspecified; G89.29 Other chronic pain; I25.10 Atherosclerotic heart disease of native coronary artery without angina pectoris; I65.29 Occlusion and stenosis of unspecified carotid artery; F41.8 Other specified anxiety disorders; Z86.73 Personal history of transient ischemic attack (TIA), and cerebral infarction without residual deficits; Z88.6 Allergy status to analgesic agent; Z82.3 Family history of stroke; Z83.3 Family history of diabetes mellitus
CPT/HCPCS: 36581; 85025 ×2; 80048 ×2; 36415; 83735; 88300; 71045; 90935; 99285; J2704; J1644 ×4; G0378 ×4; J7040; J0690; C1752; 76000

== ENCOUNTER 2021-05-02 08:07 | Observation (INO) | payer OTHER ==
--- OUTSIDE RECORDS SUMMARY | 2021-05-02 08:10 | XMS REPORT | Continuity of Care Document ---
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, fracture, 0-08 ity of right right 00:00: [place] [address] Medical Branch Scoliosis Scoliosis Problem Active [facility] - adverse [facility]: Medical reaction 00 [place] s CODEINE DRUG Active Hallucinates 2015-04 Uni [...] Date Stop Date Quantity Comments Source History [facility] - Alcohol Comment Medical C enter History [facility] 2018-06-16 2018-06-[address] [facility] - Alcohol Frequency 00:00:00 00:00:00 Medical Center History [facility] 2018-06-16 2018-06-[address] [facility] - Alcohol Std Drinks 00:00:00 00:00:00 Medica l Center History [facility] 2018-06-16 2018-06-[address] [facility] - Alcohol Binge 00:00:00 00:00:[address] Tobacco use and 2018-06-15 2018-06-[address] [facility] [address] [facility] - exposure 00:00:00 00:00:00 Medical Center Alcohol intake 2017-02-28 2017-02-28 [facility] 00:00:00 00:00:00 Medical Branch Sex Assigned At [birth year] [facility] 00:00:00 00:00:00 Medical Branch Smoking Status Start Date Stop Date Source Never smoker [facility] Medical Branch Medications Ordered Filled Start Stop Current Ordering Indication Dosage Frequency Signature Comments Components Source Medication Medication Date Date Medication? Clinician (SIG) Name Name Tylenol 8 Tylenol 8 Yes Tucker [address] [facility] [address] Hour Hour 7-25 [place] as needed [facility] - 00:00: [facility] 00 l [facility] Clinics metoprolol Yes 50mg QD Take [address] (LOPRESSOR) 3-05 by mouth Luke s - 25 MG 20:29: daily. Medical tablet 27 [place] prasugr Yes 10mg QD Take [address] (EFFIENT) 3-05 by mouth [facility] - 10 mg Tab 20:29: daily. Medica l tablet 27 [place] levothyroxi Yes 25ug Take [address] ne 3-05 mcg by [facility]ukes - (SYNTHROID, 20:29: mouth Medic al LEVOTHROID) 27 Every Center 25 MCG morning on tablet an empty stomach. losartan Yes 100mg QD Take [address] (COZAAR) 3-05 mg by [facility] - 100 MG 20:29: mouth Medical tablet 27 daily. [place] metoprolol Yes 50mg QD Take [address] (LOPRESSOR) 3-05 by mouth Luke s - 25 MG 20:29: daily. Medical tablet 27 [place] prasugr Yes 10mg QD Take [address] (EFFIENT) 3-05 by mouth [facility] - 10 mg Tab 20:29: daily. Medica l tablet 27 [place] levothyroxi Yes 25ug Take [address] ne 3-05 mcg by [facility]ukes - (SYNTHROID, 20:29: mouth Medic al LEVOTHROID) 27 Every Center 25 MCG morning on tablet an empty stomach. losartan Yes 100mg QD Take [address] (COZAAR) 3-05 mg by [facility] - 100 MG 20:29: mouth Medical tablet 27 daily. [place] metoprolol Yes 50mg QD Take [address] (LOPRESSOR) 3-05 by mouth Luke [facility] - 25 MG 20:29: daily. Medical tablet 27 [place] prasugrel Yes 10mg QD Take [address] (EFFIENT) 3-05 by mouth [facility] - 10 mg Tab 20:29: daily. Medica l tablet 27 [place] levothyroxi Yes 25ug Take [address] [...] 25 MG 20:29: daily. Medical tablet 27 [place] prasugrel 20190 Yes 10mg QD Take [address] (EFFIENT) 3-05 by mouth [facility] - 10 mg Tab 20:29: daily. Medica l tablet 27 [place] levothyroxi 0 Yes 25ug Take [address] ne 3-05 mcg by [facility]ukes - (SYNTHROID, 20:29: mouth Medic al LEVOTHROID) 27 Every Center 25 MCG morning on tablet an empty stomach. losartan 2018- Yes 100mg QD Take [address] (COZAAR) 3-05 mg by Lukes - 100 MG 20:29: mouth Medical tablet 27 daily. [place] metoprolol 0 Yes 50mg QD Take [address] (LOPRESSOR) 3-05 by mouth Luke s - 25 MG 20:29: daily. Medical tablet 27 [place] prasugr Yes 10mg QD Take [address] (EFFIENT) 3-05 by mouth [facility] - 10 mg Tab 20:29: daily. Medica l tablet 27 [place] levothyroxi 0 Yes 25ug Take [address] ne 3-05 mcg by [facility] - (SYNTHROID, 20:29: mouth Medic al LEVOTHROID) 27 Every Center 25 MCG morning on tablet an empty stomach. losartan 2018-0 Yes 100mg QD Take [address] (COZAAR) 3-05 mg by [facility]ukes - 100 MG 20:29: mouth Medical tablet 27 daily. [place] metoprolol 2019-0 Yes 50mg QD Take [address] (LOPRESSOR) 3-05 by mouth Luke s - 25 MG 20:29: daily. Medical tablet 27 [place] prasugrel 0 Yes 10mg QD Take [address] (EFFIENT) 3-05 by mouth [facility] - 10 mg Tab 20:29: daily. Medica l tablet 27 [place] levothyroxi 0 Yes 25ug Take 25 [facility] [...] 00:00:00 (1 of 1 - Medical Center [id number]_Iftaisc PCV13) [code = PNEUMOCOCCAL 65+ YRS (1 of 1 - [id number]_Rvqyecg PCV13)] Future Scheduled 2000-10-14 PNEUMOCOCCAL 65+ YRS [facility] - Test 00:00:00 (1 of 1 - Medical Center QERK81_Ccpumbs PCV13) [code = PNEUMOCOCCAL 65+ YRS (1 of 1 - RHND59_Qwsfevq PCV13)] Future Scheduled 2000-10-14 PNEUMOCOCCAL 65+ YRS [facility] - Test 00:00:00 (1 of 1 - [facility] JJWI50_Xwrxgbb PCV13) [code = PNEUMOCOCCAL 65+ YRS (1 of 1 - DMII01_Oidbtwy PCV13)] Future Scheduled 2000-10-14 PNEUMOCOCCAL 65+ Y[facility] - Test 00:00:00 (1 of 1 - [facility] XZFZ87_Umbsgeb PCV13) [code = PNEUMOCOCCAL 65+ YRS (1 of 1 - LPFA14_Vmotgmy PCV13)] Future Scheduled 2000-10-14 PNEUMOCOCCAL 65+ Y[facility] - Test 00:00:00 (1 of 1 [facility] XUIG90_Lohelmh PCV13) [code = PNEUMOCOCCAL 65+ YRS (1 of 1 - XPMU66_Hledbuh PCV13)] Future Scheduled 2000-10-14 PNEUMOCOCCAL 65+ Y[facility] - Test 00:00:00 (1 of 1 - [facility] ACLP10_Aycxdng PCV13) [code = PNEUMOCOCCAL 65+ YRS (1 of 1 - UGQS91_Lxvyefr PCV13)] Future Scheduled 1985-10-14 SHINGLES VACCINES (1 [...] Clinicians Facility Department ID 2020-10-03 2020-10-03 Telephone [facility] [id number] Univers 00:00:00 00:00:00 [facility] [id number] it y of Surgical [id number] Hi as Specialti [id number] Nd dical [address] 2020-04-29 2020-04-29 Outpatient Ananda DYER [facility] [id number]-20 Univers 15:00:00 15:00:00 YESIKA [id number] [facility] 2020-04-29 2020-04-29 Outpatient Ananda DYER [facility] [id number] Univers 15:00:00 15:00:00 YESIKA [facility] 2018-11-06 2018-11-06 Outpatient Marshal Alejandro [id number] 11:00:00 11:[facility] 2018-10-09 2018-10-09 Outpatient Marshal Alejandro [id number] 10:30:00 10:30:00 [facility] Clinics Results Test Description Test Time Test Comments Results Result Comments Source CALCIUM, IONIZED 2018-06-17 06:48:00 Test Item Value Reference Range Interpretation Comme nts CALCIUM IONIZED (BEAKER) (test code = 698) 1.05 mmol/L 1.12-1.27 L PH, BLOOD (BEAKER) (test code = 1810) 7.43 [id number] 06:12:00 Test Item Value Reference Range Interpretation Comments PHOSPHORUS (BEAKER) (test code = 3.4 mg/dL 2.3-4.7 604) [id number] 06:12:00 Test Item Value Reference Range Interpretation Comments MAGNESIUM (BEAKER) (test code = 1.7 mg/dL 1.6-2.6 627) BASIC METABOLIC [id number] 06:12:00 Test Item Value Reference Range Interpretation [...] PATIEN TS. CBC W/PLT COUNT & AUTO [id number] 05:34:00 Test Item Value Reference Range Interpretation [...] code = 2801) MR, MRA, BRAIN, WITHOUT [id number] 10:59:00Reason for exam:->Ischemic Stroke EvaluationFINAL REPORT MRA Head CLINICAL HISTORY: Stroke TECHNIQUE: MRA of the head utilizing 3-D snyl-pj-ffomdi technique, with 3-D reconstructions. COMPARISON: None IMPRESSION: Allowing for mild motion degradation, there is no evidence for a yuhaaviatam of [place] proximal branch vessel occlusion. Distal branch vessel occlusions cannot be excluded. Aneurysms cannot be excluded. MRA Neck CLINICAL HISTORY: Stroke TECHNIQUE: MRA of the neck utilizing 2-D and 3-D vxlf-my-opsmnz technique, with 3-D reconstructions. COMPARISON: None IMPRESSION: [...] MDReport Verified Date/Time: 06/16/2018 10:59:34 Reading Location: [address] Neuro Reading Room MR, MRA, NECK, WITHOUT IV [id number] 10:59:00Reason for exam:- >Ischemic Stroke EvaluationFINAL REPORT MRA Head CLINICAL HISTORY: Stroke TECHNIQUE: MRA of the head utilizing 3-D yyiz-ch-nttkby technique, with 3-D reconstructions. COMPARISON: None IMPRESSION: Allowing for mild motion degradation, there is no evidence for a yuhaav[place] of [place] proximal branch vessel occlusion. Distal branch vessel occlusions cannot be excluded. Aneurysms cannot be excluded. MRA Neck CLINICAL HISTORY: Stroke TECHNIQUE: MRA of the neck utilizing 2-D and 3-D hmkt-iu-oojqmc technique, with 3-D reconstructions. COMPARISON: None IMPRESSION: [...] MDRcorwinort Verified Date/Time: 06/16/2018 10:59:34 Reading Location: [address] Neuro Reading Room MR, BRAIN, WITHOUT [id number] 10:52:00Reason for exam:->Ischemic Stroke EvaluationFINAL REPORT MRI [...] MDRcorwinort Verified Date/Time: 06/16/2018 10:52:22 Reading Location: [address] Neuro Reading Room HEMOGLOBIN [id number] 09:43:00 Test Item Value Reference Range Interpretation Comments HEMOGLOBIN A1C (BEAKER) (test code = 5.9 % 4.3-6.1 368) VITAMIN [id number] 06:40:00 Test Item Value Reference Range Interpretation Comments VITAMIN B12 (BEAKER) (test code = 375 pg/mL 213-366 564) TSH/FREE T4 IF [id number] 05:45:00 Test Item Value Reference Range Interpretation Comments THYROID STIMULATING HORMONE 4.44 uIU/mL 0.35-4.94 (BEAKER) (test code = 772) LIPID [id number] 05:27:00 Test Item Value Reference Range Interpretation [...]
[2021-05-02] MEDS ORDERED: IPRATROPIUM BROM 0.5MG/2.5ML ONE ×2 (08:15→08:21)
[2021-05-02] MEDS ORDERED: METHYLPREDNISOLONE 125 MG INJ ONE (08:15)
[2021-05-02] MEDS ORDERED: ALBUTEROL 2.5 MG/3 ML NEB SOL ONE (08:26)
[2021-05-02] MEDS ORDERED: HYDRALAZINE HCL 20 MG/ML VIAL ONE (08:33)
--- NOTE | 2021-05-02 08:50 | RAD REPORT ---
EXAM DESCRIPTION: RAD - Chest Single View - 05/02/2021 8:41 am CLINICAL HISTORY: DYSPNEA COMPARISON: Chest Single View dated 04/07/2021; Chest Single View dated 03/31/2021; Chest Single Vie w dated 03/28/2021; Chest Pa And Lat (2 Views) dated 09/19/2020 FINDINGS: Lines: Right IJ approach dialysis catheter with tip overlying the right atrium. Lungs: Left basilar opacification which is similar. Pleural: Small to moderate left and small right pleural effusions. Cardiac: Cardiomegaly. Bones: No acute fractures. Other: IMPRESSION: Small to moderate left and small right pleural effusion and presumably underlying atelec tasis.
[2021-05-02 08:54] LABS: Absolute Lymphocytes (CBC) 1.6 K/uL (0.7-4.9); Hematocrit 28.5 % (36.0-45.0); Lymphocytes % 15.8 % (15.3-44.8); MPV 8.4 fL (7.6-11.3); RBC Red Blood Cell Count 3.24 M/uL (3.86-4.86)
[2021-05-02 08:56] LABS: Protime INR 0.91
[2021-05-02 11:42] LABS: ALT/SGPT 30 U/L (12-78); Albumin 2.8 g/dL (3.4-5.0); Alkaline Phosphatase 91 U/L (45-117); BUN Blood Urea Nitrogen 48 mg/dL (7-18); Bicarbonate 23 mmol/L (21-32); Bilirubin Direct < 0.1 mg/dL (0-0.2); Bilirubin Total 0.3 mg/dL (0.2-1.0); Glucose Level 111 mg/dL (74-106); Protein, Total 6.8 g/dL (6.4-8.2); Sodium Level 139 mmol/L (136-145)
[2021-05-02 11:44] LABS: Potassium 3.8 mmol/L (3.5-5.1)
[2021-05-02 11:45] LABS: AST/SGOT 31 U/L (15-37); Magnesium 2.3 mg/dL (1.8-2.4); NT PRO-BNP 40263 pg/mL (<450)
--- NOTE | 2021-05-02 12:03 | ER ---
Nurse's Notes [facility] Name: Isadora Jeffery Age: 85 yrs Sex: Female : 1935 Arrival Date: 05/02/2021 Time: 08:08 Bed 7 Private MD: Brown Pina R Diagnosis: Acute pulmonary edema;Acute respiratory failure with hypoxia Presentation: 05/02 08:21 Chief complaint: Patient states: Shortness of breath and wheezing that started welch yesterday and has progressively gotten worse. Coronavirus screen: Vaccine status: Patient reports receiving the 2nd dose of the covid vaccine. Client denies travel out of the [place] in the last 14 days. Ebola Screen: Patient negative for fever greater than or equal to 101.5 degrees Fahrenheit, and additional compatible Ebola Virus Disease symptoms Patient denies exposure to infectious person. Initial Sepsis Screen: Does the patient meet any 2 criteria? RR > 20 per min. Does the patient have a suspected source of infection? No. Patient's initial sepsis screen is negative. Risk Assessment: Do you want to hurt yourself or someone else? Patient reports no desire to harm self or others. Onset of symptoms was May 02, 2021. 08:21 Method Of Arrival: Wheelchair welch 08:21 Acuity: ROMELIA 3 welch Triage Assessment: :22 General: Appears uncomfortable, Behavior is cooperative. Pain: Denies pain. EENT: No welch deficits noted. No signs and/or symptoms were reported regarding the EENT system. Neuro: Level of Consciousness is awake, alert, obeys commands, Oriented to person, place, time, situation. Cardiovascular: Reports shortness of breath. Respiratory: Reports shortness of breath air hunger Airway is patent Respiratory effort is even, unlabored, Respiratory pattern is regular, symmetrical, Breath sounds with wheezes Onset: The symptoms/episode began/occurred yesterday, the patient has severe shortness of breath. GI: No deficits noted. No signs and/or symptoms were reported involving the gastrointestinal system. : No deficits noted. No signs and/or symptoms were reported regarding the genitourinary system. Derm: Skin is fragile, is thin. Musculoskeletal: No deficits noted. Historical: - Allergies: : Codeine; welch - PMHx: 08:22 CVA; Depression; Dialysis; Hyperlipidemia; Hypertension; kidney disease; welch - Immunization history:: Client reports receiving the 2nd dose of the Covid vaccine. - Social history:: Smoking status: Patient denies any tobacco usage or history of. Screenin:24 Abuse screen: Denies threats or abuse. Denies injuries from another. Nutritional welch screening: No deficits noted. Tuberculosis screening: No symptoms or risk factors identified. Fall Risk None identified. Assessment: 08:27 Cardiovascular: Rhythm is sinus tachycardia. Respiratory: Airway is patent Breath welch sounds with wheezes bilaterally. 11:58 Reassessment: initial room air O2 sats observed by provider was 88%. welch 13:08 Reassessment: No changes from previously documented assessment. Patient and/or family bp updated on plan of care and expected duration. Pain level reassessed. PT SEEN BY HOSPITALIST, ADMIT IN PROCESS. Vital Signs: 08:21 BP 182 / 157; Pulse 76; Resp 30; Pulse Ox 96% on R/A; Weight 48.53 kg; Height 5 ft. 7 welch in. (170.18 cm); Pain 0/10; 09:19 BP 168 / 51; Pulse 70; Resp 18; Pulse Ox 100% on 5% Nebulizer Mask; welch 09:42 BP 155 / 46; Pulse 77; Resp 18; Pulse Ox 99% on 2 lpm NC; welch 10:27 BP 156 / 58; Pulse 73; Resp 18; Pulse Ox 95% on 2 lpm NC; welch 11:18 BP 152 / 47; Pulse 70; Resp 18; Pulse Ox 96% on 2 lpm NC; welch 13:00 BP 151 / 45; Pulse 76; Resp 16; Pulse Ox 96% ; bp 08:21 Body Mass Index 16.76 (48.53 kg, 170.18 cm) ED Course: 08:08 Patient arrived in ED. am2 08:08 Brown Pina MD is Private Physician. am2 08:11 Dennys Watts PA is PHCP. jr8 08:11 Aj Basilio MD is Attending Physician. jr8 08:22 Triage completed. welch 08:22 Arm band placed on right wrist. welch 08:27 Cadence Rios, LEWIS is Primary Nurse. welch 08:27 Patient has correct armband on for positive identification. Bed in low position. welch 08:27 No provider procedures requiring assistance completed. Inserted saline lock: 20 gauge welch in left forearm, using aseptic technique. 08:41 XRAY Chest (1 view) In Process Unspecified. EDMS 08:47 Basic Metabolic Panel Sent. welch 08:47 CBC with Diff Sent. welch 08:47 LFT's Sent. welch 12:02 Everett Julien DO is Hospitalizing Provider. jr8 Administered Medications: 08:29 Drug: Albuterol - atroVENT (ipratropium) (3:1) (2.5 mg - 0.5 mg) 3 ml Route: Nebulizer; welch 10:32 Follow up: Response: No adverse reaction welch 08:29 Drug: SOLU-Medrol (methylPrednisoLONE) 125 mg Route: IVP; Site: left forearm; welch 10:32 Follow up: Response: No adverse reaction welch 08:47 Drug: hydrALAZINE 10 mg Route: IVP; Site: left forearm; welch 10:31 Follow up: Response: No adverse reaction welch 12:30 Drug: Lasix (furosemide) 40 mg Route: IVP; Site: left forearm; bp 13:31 Follow up: Response: No adverse reaction welch Outcome: 12:02 Decision to Hospitalize by Provider. jr8 15:10 Patient left the ED. kj1 Signatures: Dispatcher [employer] EDMS Dennys Watts PA PA jr8 Manda Hernandez Brian, RN RN Queta Deal kj1 Tawny-StageCadence mae RN RN
--- NOTE | 2021-05-02 12:04 | EDPHYS ---
Physician Documentation [facility] Name: Isadora Jeffery Age: 85 yrs Sex: Female : 1935 Arrival Date: 05/02/2021 Time: 08:08 Bed 7 Private MD: Brown Pina R ED Physician Aj Basilio HPI: 05/02 09:13 This 85 yrs old Female presents to ER via Wheelchair with complaints of Wheezing < 1 jr8 Year, Shortness Of Breath, Cough. 09:13 Associated signs and symptoms: The patient has no apparent associated signs or jr8 symptoms. Severity of symptoms: At their worst the symptoms were moderate in the emergency department the symptoms are unchanged. The patient has not experienced similar symptoms in the past. The patient has not recently seen a physician. This is a rest and with exertion. Patient stated that she started wheezing this morning and since then has had increased work of breathing. Patient with audible wheezing upon arrival. Historical: - Allergies: 08:22 Codeine; welch - PMHx: :22 CVA; Depression; Dialysis; Hyperlipidemia; Hypertension; kidney disease; welch - Immunization history:: Client reports receiving the 2nd dose of the Covid vaccine. - Social history:: Smoking status: Patient denies any tobacco usage or history of. ROS: 09:13 Eyes: Negative for injury, pain, redness, and discharge, ENT: Negative for injury, jr8 pain, and discharge, Neck: Negative for injury, pain, and swelling, Cardiovascular: Negative for chest pain, palpitations, and edema, Abdomen/GI: Negative for abdominal pain, nausea, vomiting, diarrhea, and constipation, Back: Negative for injury and pain, MS/Extremity: Negative for injury and deformity, Skin: Negative for injury, rash, and discoloration, Neuro: Negative for headache, weakness, numbness, tingling, and seizure. 09:13 Respiratory: Positive for dyspnea on exertion, shortness of breath, wheezing. Exam: 09:13 ENT: Nares patent. No nasal discharge, no septal abnormalities noted. Tympanic jr8 membranes are normal and external auditory canals are clear. Oropharynx with no redness, swelling, or masses, exudates, or evidence of obstruction, uvula midline. Mucous membranes moist. Neck: Trachea midline, no thyromegaly or masses palpated, and no cervical lymphadenopathy. Supple, full range of motion without nuchal rigidity, or vertebral point tenderness. No Meningismus. Cardiovascular: Regular rate and rhythm with a normal S1 and S2. No gallops, murmurs, or rubs. Normal PMI, no JVD. No pulse deficits. Abdomen/GI: Soft, non-tender, with normal bowel sounds. No distension or tympany. No guarding or rebound. No evidence of tenderness throughout. Back: No spinal tenderness. No costovertebral tenderness. Full range of motion. Skin: Warm, dry with normal turgor. Normal color with no rashes, no lesions, and no evidence of cellulitis. MS/ Extremity: Pulses equal, no cyanosis. Neurovascular intact. Full, normal range of motion. Neuro: Awake and alert, GCS 15, oriented to person, place, time, and situation. Cranial nerves II-XII grossly intact. Motor strength 5/5 in all extremities. Sensory grossly intact. 09:13 Constitutional: The patient appears alert, awake, in obvious distress, mildly distressed. 09:13 Respiratory: mild respiratory distress is noted, Respirations: tachypnea, Breath sounds: rales, that are mild, are heard in the right posterior middle lobe and right posterior lower lobe, wheezing: expiratory that is moderate, is heard diffusely. Vital Signs: 08:21 BP 182 / 157; Pulse 76; Resp 30; Pulse Ox 96% on R/A; Weight 48.53 kg; Height 5 ft. 7 welch in. (170.18 cm); Pain 0/10; 09:19 BP 168 / 51; Pulse 70; Resp 18; Pulse Ox 100% on 5% Nebulizer Mask; welch 09:42 BP 155 / 46; Pulse 77; Resp 18; Pulse Ox 99% on 2 lpm NC; welch 10:27 BP 156 / 58; Pulse 73; Resp 18; Pulse Ox 95% on 2 lpm NC; welch 11:18 BP 152 / 47; Pulse 70; Resp 18; Pulse Ox 96% on 2 lpm NC; welch 13:00 BP 151 / 45; Pulse 76; Resp 16; Pulse Ox 96% ; bp 08:21 Body Mass Index 16.76 (48.53 kg, 170.18 cm) MDM: 08:11 Patient medically screened. 8 12:01 Data reviewed: vital signs, nurses notes, lab test result(s), EKG, radiologic studies, jr plain films. Data interpreted: Pulse oximetry: on room air is 88 %. Interpretation: hypoxia. Counseling: I had a detailed discussion with the patient and/or guardian regarding: the historical points, exam findings, and any diagnostic results supporting the discharge/admit diagnosis, lab results, radiology results, the need for further work-up and treatment in the hospital. 05/02 08:27 Order name: Basic Metabolic Panel 05/02 08:27 Order name: CBC with Diff 05/02 08:27 Order name: LFT's 05/02 08:27 Order name: Magnesium; Complete Time: 11:48 05/02 08:27 Order name: NT PRO-BNP; Complete Time: 11:48 05/02 08:27 Order name: PT-INR; Complete Time: 09:22 05/02 08:27 Order name: Troponin HS; Complete Time: 11:48 05/02 08:27 Order name: XRAY Chest (1 view); Complete Time: 09:22 05/02 08:27 Order name: COVID-19 SARS RT PCR (Document "Date of Onset" if Symptomatic); Complete Time: 10:04 05/02 08:28 Order name: Basic Metabolic Panel; Complete Time: 11:48 EDMS 05/02 08:28 Order name: CBC with Automated Diff; Complete Time: 09:22 EDMS 05/02 08:28 Order name: Liver (Hepatic) Function; Complete Time: 11:48 EDMS 05/02 08:27 Order name: EKG; Complete Time: 08:29 05/02 08:27 Order name: Cardiac monitoring; Complete Time: 08:47 05/02 08:27 Order name: EKG - Nurse/Tech; Complete Time: 08:47 05/02 08:27 Order name: IV Saline Lock; Complete Time: 08:31 05/02 08:27 Order name: Labs collected and sent; Complete Time: 08:31 05/02 08:27 Order name: O2 Per Protocol; Complete Time: 08:31 05/02 08:27 Order name: O2 Sat Monitoring; Complete Time: : Administered Medications: 08:29 Drug: Albuterol - atroVENT (ipratropium) (3:1) (2.5 mg - 0.5 mg) 3 ml Route: Nebulizer; welch 10:32 Follow up: Response: No adverse reaction welch 08:29 Drug: SOLU-Medrol (methylPrednisoLONE) 125 mg Route: IVP; Site: left forearm; welch 10:32 Follow up: Response: No adverse reaction welch 08:47 Drug: hydrALAZINE 10 mg Route: IVP; Site: left forearm; welch 10:31 Follow up: Response: No adverse reaction welch 12:30 Drug: Lasix (furosemide) 40 mg Route: IVP; Site: left forearm; bp 13:31 Follow up: Response: No adverse reaction welch Disposition: 05/03 08:22 Co-signature as Attending Physician, Aj Basilio MD I agree with the assessment and serge plan of care. Disposition Summary: 05/02/21 12:02 Hospitalization Ordered Hospitalization Status: Observation jr8 Provider: Everett Julien [facility] Location: Telemetry/MedSurg (observation) jr8 Condition: Stable jr8 Problem: new jr8 Symptoms: have improved jr8 Bed/Room Type: Standard [facility] Room Assignment: 210(05/02/21 14:11) bd Diagnosis - Acute pulmonary edema jr8 - Acute respiratory failure with hypoxia jr8 Discharge Instructions: - Discharge Summary Sheet welch Forms: - Medication Reconciliation Form jr8 - SBAR form jr8 - Family Work Release welch Signatures: Dispatcher [employer] EDAraseli Cuevas Corey, MD MD cha Roszak, Josh, PA PA jr8 Valerio Wood RN RN Tawny-Cadence Jaramillo RN RN welch Corrections: (The following items were deleted from the chart) 05/02 12:03 09:13 Respiratory: mild respiratory distress is noted, Respirations: tachypnea, Breath jr8 sounds: wheezing: expiratory that is moderate, is heard diffusely, jr8 14:11 12:02 jr8 bd
[2021-05-02] MEDS ORDERED: FUROSEMIDE 40 MG/4 ML VIAL ONE (12:37)
--- NOTE | 2021-05-02 13:03 | P.HP ---
Certification for Inpatient Patient admitted to: Observation With expected LOS: <2 Midnights Patient will require the following post-hospital care: None Practitioner: I am a practitioner with admitting privileges, knowledge of patient current condition, hospital course, and medical plan of care. Services: Services provided to patient in accordance with Admission requirements found in Title 42 Section 412.3 of the Code of Federal Regulations Patient History Date of Service: 05/02/21 Primary Care Provider: Dr. Ramirez; Nephrology-Dr. Thornton Reason for admission: Shortness of breath, Edema to the lower extremity History of Present Illness: 85-year-old female with history of end-stage renal disease on hemodialysis, hypertension, chronic diastolic CHF with chronic pleural effusion, hyperlipidemia, anemia chronic disease and B12 deficiency, hypothyroidism, depression with anxiety, chronic pain and CAD. Patient reported increasing shortness of breath over the past day. It has gotten worse today. She had noted increasing edema to the lower extremities as well. Patient receives dialysis. She is due for dialysis today. Patient is taking Lasix as well. She came to the ER for further evaluation. In the ER patient was evaluated. Patient was found to be hypoxic. Patient required IV diuresis in the ER. Chest x-ray showed pleural effusions bilateral. Lab showed white count 10.2, hemoglobin 9.1. Platelet count 238. Sodium 139, potassium 3.8. BUN 48, creatinine 5.14. GFR of 9. Glucose 111. BNP greater than 40,000. Troponin unremarkable. Patient was admitted for treatment. Allergies codeine Allergy (Severe, Verified 04/02/21 13:57) Nausea/Vomiting Home medications list reviewed: Yes Home Medications: Alendronate Sodium [Fosamax] 70 mg PO EVERY 7TH DAY 04/29/19 Atorvastatin Calcium [Lipitor*] 20 mg PO BEDTIME 04/29/19 Levothyroxine [Synthroid*] 25 mcg PO [id number] 04/29/19 Prasugrel HCl [Effient] 10 mg PO DAILY 04/29/19 traMADol HCL [Ultram*] 50 mg PO BEDTIME 04/29/19 Calcitrol [Rocaltrol*] 0.5 mcg PO DAILY #30 cap 04/03/21 Docusate [Colace Cap*] 100 mg PO BID #60 cap 04/03/21 Epoetin [Retacrit] 10,000 unit SQ M,W,F vial 12/20/21 Heparin [Heparin 1,000 units/mL *] 6,000 unit IV EVERY HD PRN vial 04/03/21 Mannitol 25% [Mannitol*] 12.5 gm IV EVERY HD PRN vial 04/03/21 Nepro Shake [Nepro*] 237 ml PO BID #60 can 04/03/21 Sevelamer Carbonate [Renvela*] 800 mg PO TIDWM #90 tablet 04/03/21 Amlodipine [Norvasc*] 10 mg PO DAILY #30 tab 04/07/21 Furosemide [Lasix*] 20 mg PO BIDL #60 tab 04/07/21 Hydralazine [Apresoline*] 50 mg PO BID #120 tab 04/07/21 Losartan Potassium [Cozaar*] 100 mg PO DAILY #60 04/07/21 Metoprolol Tartrate [Lopressor*] 50 mg PO BID #60 tab 04/07/21 - Past Medical/Surgical History Diabetic: No -: Hypertension -: Hyperlipidemia -: History CVA -: Carotid arterial disease with prior stent -: CAD -: Hypothyroidism -: Chronic diastolic CHF -: Depression with anxiety -: Chronic pain -: End-stage renal disease on hemodialysis -: Carotid stent -: Right partial hip replacement Psychosocial/ Personal History: Patient is a . She lives by herself. - Family History Father -: Stroke Mother -: Diabetes - Social History Smoking Status: Never smoker Alcohol use: No CD- Drugs: No Caffeine use: Yes Place of Residence: Home Review of Systems General: Weakness, As per HPI Eyes: Unremarkable ENT: Unremarkable Respiratory: Shortness of Breath, As per HPI Cardiovascular: Edema, As per HPI Gastrointestinal: Unremarkable Genitourinary: Unremarkable Musculoskeletal: Pedal edema, As per HPI Integumentary: Unremarkable Neurological: Unremarkable Lymphatics: Unremarkable Physical Examination - Studies Laboratory Data (last 24 hrs) 05/02/21 08:35: PT 10.4, INR 0.91 05/02/21 08:35: WBC 10.20, Hgb 9.1 L, Hct 28.5 L, Plt Count 238 05/02/21 08:35: Sodium 139, Potassium 3.8, BUN 48 H, Creatinine 5.14 H*, Glucose 111 H, Magnesium 2.3, Total Bilirubin 0.3, AST 31, ALT 30, Alkaline Phosphatase 91 Assessment and Plan - Plan COVID: Negative Chest x-ray: COMPARISON: Chest Single View dated 04/07/2021; Chest Single View dated 03/31/2021; Chest Single View dated 03/28/2021; Chest Pa And Lat (2 Views) dated 09/19/2020 FINDINGS: Lines: Right IJ approach dialysis catheter with tip overlying the right atrium. Lungs: Left basilar opacification which is similar. Pleural: Small to moderate left and small right pleural effusions. Cardiac: Cardiomegaly. Bones: No acute fractures. IMPRESSION: Small to moderate left and small right pleural effusion and presumably underlying atelectasis. Physical Exam: GENERAL: The patient is a well-developed, well-nourished, in no apparent distress. Alert and oriented x3. VITAL SIGNS: Reviewed HEENT: Head is normocephalic and atraumatic. Extraocular muscles are intact. Pupils are equal, round, and reactive to light and accommodation. Nares appeared normal. Mouth is well hydrated and without lesions. Mucous membranes are moist. NECK: Supple. No carotid bruits. No lymphadenopathy or thyromegaly. LUNGS: Crackles to the bases. Currently on 2 L per nasal cannula HEART: Regular rate and rhythm, no appreciable gallops, rubs, murmurs or extra heart sounds ABDOMEN: Soft, nontender, and nondistended. Positive bowel sounds. No hepatosplenomegaly was noted. EXTREMITIES: 1-2+ pitting edema to the lower extremity. NEUROLOGIC: The patient is oriented to person, place and time. Strength and sensation are grossly intact. Face is symmetric. SKIN: Edema to the lower extremity Impression: Dyspnea with hypoxia secondary to bilateral pleural effusions/pulmonary edema related to acute on chronic diastolic CHF End-stage renal disease on hemodialysis Hypertension Hypothyroidism Hyperlipidemia Anemia chronic disease with B12 deficiency Depression with anxiety Chronic pain CAD Plan: Dyspnea with hypoxia secondary to bilateral pleural effusions/pulmonary edema related to acute on chronic diastolic CHF: Patient will be admitted for further evaluation and treatment. Patient received IV diuretic therapy with improvement. We will continue with diuresis. We will increase Lasix to 40 mg twice daily. Will discuss with nephrology about dialysis today. Continue 1500 cc/day fluid restriction. Recheck chest x-ray tomorrow. Wean off oxygen to maintain sats above 93%. Anticipate improvement over the next 24 hours. End-stage renal disease on hemodialysis: Patient is due for dialysis today. Wi ll discuss with nephrology about dialysis. Continue with her home medication including Renvela 800 mg 3 times a day and calcitriol 0.25 mcg daily. Hypertension: Continue with her home medication including Norvasc 10 mg daily, hydralazine 25 mg 1 pill twice daily, and metoprolol 50 mg 1 pill twice daily. Will monitor and adjust medication. Hypothyroidism: Continue with levothyroxine 25 mcg daily Hyperlipidemia: Continue Lipitor 20 mg daily Anemia chronic disease with B12 deficiency: We will monitor lab closely. Continue with B12 supplementation daily Depression with anxiety: Continue with mirtazapine 15 mg at bedtime as needed for insomnia Chronic pain: Continue with hydrocodone as needed for pain CAD: Continue Effient 10 mg daily Code Status: Full Code DVT prophylaxis: Heparin Advanced Care Planning-30 minutes: Home at discharge Discharge Plan: Home Plan to discharge in: 24 Hours - Advance Directives Does patient have a Living Will: No Does patient have a Durable POA for Healthcare: Yes - Code Status/Comfort Care Code Status Assessed: Yes (Patient is full code) Time Spent Managing Pts Care (In Minutes): 55
[2021-05-02] MEDS ORDERED: ACETAMINOPHEN 500 MG TAB PO PRN (14:31)
[2021-05-02] MEDS ORDERED: MIRTAZAPINE 15 MG TAB PO PRN (14:31)
[2021-05-02] MEDS ORDERED: HYDROCODONE/APAP 5/325 MG TAB PO PRN (14:31)
[2021-05-02] MEDS ORDERED: ONDANSETRON 4 MG/2 ML VIAL IV PRN (14:31)
[2021-05-02] MEDS: FUROSEMIDE 40 MG TABLET PO SCH (18:10)
[2021-05-02] MEDS: SEVELAMER CARBONATE 800 MG TABLET PO SCH (18:10)
[2021-05-02] MEDS: HYDRALAZINE HCL 25 MG TABLET PO SCH (20:53)
[2021-05-02] MEDS: METOPROLOL TAR 50 MG TAB PO SCH (20:53)
[2021-05-02] MEDS: HEPARIN 5000 UNIT/ML 1 ML VIAL SQ SCH (20:53)
[2021-05-02] MEDS ORDERED: ATORVASTATIN 20 MG TAB PO SCH (21:00)
--- NOTE | 2021-05-03 05:56 | P.PN ---
Subjective Date of Service: 05/03/21 Primary Care Provider: Dr. Ramirez; Nephrology-Dr. Thornton Chief Complaint: Shortness of breath, Edema to the lower extremity Subjective: Improving, Doing well Physical Examination - Vital Signs Temperature: 98.5 F Blood Pressure: 165/72 Pulse: 68 Respirations: 18 Pulse Ox (%): 97 - Studies Laboratory Data (last 24 hrs) 05/02/21 08:35: PT 10.4, INR 0.91 05/02/21 08:35: WBC 10.20, Hgb 9.1 L, Hct 28.5 L, Plt Count 238 05/02/21 08:35: Sodium 139, Potassium 3.8, BUN 48 H, Creatinine 5.14 H*, Glucose 111 H, Magnesium 2.3, Total Bilirubin 0.3, AST 31, ALT 30, Alkaline Phosphatase 91 Assessment & Plan Discharge Plan: Home Plan to discharge in: 24 Hours Physician Review Additional Text: COVID: Negative Chest x-ray: COMPARISON: Chest Single View dated 04/07/2021; Chest Single View dated 03/31/2021; Chest Single View dated 03/28/2021; Chest Pa And Lat (2 Views) dated 09/19/2020 FINDINGS: Lines: Right IJ approach dialysis catheter with tip overlying the right atrium. Lungs: Left basilar opacification which is similar. Pleural: Small to moderate left and small right pleural effusions. Cardiac: Cardiomegaly. Bones: No acute fractures. IMPRESSION: Small to moderate left and small right pleural effusion and presumably underlying atelectasis. Follow up CXR 05/03/2021: COMPARISON: Chest Single View dated 05/02/2021; Chest Single View dated 04/07/2021; Chest Single View dated 03/31/2021; Chest Single View dated 03/28/2021; Chest Abd Pelvis Wo Con dated 03/28/2021 FINDINGS: Lines: Similar dialysis catheter. Lungs: Left pleural effusion and underlying airspace opacities which is unchanged. Pleural: Small moderate left effusion is unchanged small right effusion. Cardiac: The heart size is within normal limits. Bones: No acute fractures. IMPRESSION: Unchanged left pleural effusion and likely underlying atelectasis. Small right effusion. Physical Exam: GENERAL: The patient is a well-developed, well-nourished, in no apparent distress. Alert and oriented x3. VITAL SIGNS: Reviewed HEENT: Neck supple LUNGS: Better air movement. Currently on 2 L per nasal cannula HEART: Regular rate and rhythm, no appreciable gallops, rubs, murmurs or extra heart sounds ABDOMEN: Soft, nontender, and nondistended. Positive bowel sounds. No hepatosplenomegaly was noted. EXTREMITIES: No edema to the lower extremity NEUROLOGIC: The patient is oriented to person, place and time. Strength and sensation are grossly intact. Face is symmetric. SKIN: No edema Impression: Dyspnea with hypoxia secondary to bilateral pleural effusions/pulmonary edema related to acute on chronic diastolic CHF End-stage renal disease on hemodialysis Hypertension Hypothyroidism Hyperlipidemia Anemia chronic disease with B12 deficiency Depression with anxiety Chronic pain CAD Plan: Dyspnea with hypoxia secondary to bilateral pleural effusions/pulmonary edema related to acute on chronic diastolic CHF: Patient improved. Patient will have dialysis again today. Case discussed with nephrology. We will plan for discharge today. We will recommend to increase Lasix to 40 mg 1 pill twice daily at discharge. Continue 1500 cc/day fluid restriction. We will arrange for home oxygen to maintenance above 93%. This can be weaned off. Follow-up with nephrology within 1 week. Recommend to recheck labin 1 week. End-stage renal disease on hemodialysis: Patient had dialysis yesterday. Patient received dialysis again today. Case discussed with nephrology. Continue Renvela 800 mg 3 times a day and calcitriol 0.25 mcg daily. Hypertension: Continue with her home medication including Norvasc 10 mg daily, hydralazine 25 mg 1 pill twice daily, and metoprolol 50 mg 1 pill twice daily. Will monitor and adjust medication. Hypothyroidism: Continue with levothyroxine 25 mcg daily Hyperlipidemia: Continue Lipitor 20 mg daily Anemia chronic disease with B12 deficiency: We will monitor lab closely. Continue with B12 supplementation daily Depression with anxiety: Continue with mirtazapine 15 mg at bedtime as needed for insomnia Chronic pain: Continue with hydrocodone as needed for pain CAD: Continue Effient 10 mg daily Code Status: Full Code DVT prophylaxis: Heparin Advanced Care Planning-30 minutes: Home at discharge Time Spent Managing Pts Care (In Minutes): 55
[2021-05-03 06:03] LABS: Hematocrit 24.1 % (36.0-45.0); Lymphocytes % 12.6 % (15.3-44.8); MPV 8.4 fL (7.6-11.3); RBC Red Blood Cell Count 2.76 M/uL (3.86-4.86)
[2021-05-03 06:22] LABS: Potassium 3.9 mmol/L (3.5-5.1)
[2021-05-03] MEDS ORDERED: LEVOTHYROXINE SOD 0.025 MG TAB PO SCH (06:30)
[2021-05-03 06:37] LABS: Magnesium 2.1 mg/dL (1.8-2.4)
--- NOTE | 2021-05-03 07:33 | RAD REPORT ---
EXAM DESCRIPTION: RAD - Chest Single View - 05/03/2021 7:21 am CLINICAL HISTORY: follow up Pulm. edema/effusions COMPARISON: Chest Single View dated 05/02/2021; Chest Single View dated 04/07/2021; Chest Single View dated 03/31/2021; Chest Single View dated 03/28/2021; Chest Abd Pelvis Wo Con dated 03/28/2021 FINDINGS: Lines: Similar dialysis catheter. Lungs: Left pleural effusion and underlying airspace opacities which is unchanged. Pleural: Small moderate left effusion is unchanged small right effusion. Cardiac: The heart size is within normal limits. Bones: No acute fractures. Other: IMPRESSION: Unchanged left pleural effusion and likely underlying atelectasis. Small right effusion.
[2021-05-03 08:37] LABS: Hematocrit 25.6 % (36.0-45.0)
[2021-05-03] MEDS: SEVELAMER CARBONATE 800 MG TABLET PO SCH ×2 (08:39→12:00)
[2021-05-03] MEDS: FUROSEMIDE 40 MG TABLET PO SCH (08:40)
[2021-05-03] MEDS: HYDRALAZINE HCL 25 MG TABLET PO SCH (08:40)
[2021-05-03] MEDS: METOPROLOL TAR 50 MG TAB PO SCH (08:40)
[2021-05-03] MEDS: HEPARIN 5000 UNIT/ML 1 ML VIAL SQ SCH (08:40)
--- NOTE | 2021-05-03 08:55 | P.CNS ---
Date of Consult: 05/03/21 Reason for Consult: ESRD Requesting Physician: Everett Julien Primary Care Provider: Dr. Ramirez; Nephrology-Dr. Thornton Chief Complaint: Shortness of breath, Edema to the lower extremity History of Present Illness: 85-year-old female with history of end-stage renal disease on hemodialysis, hypertension, chronic diastolic CHF with chronic pleural effusion, hyperlipidemia, anemia chronic disease and B12 deficiency, hypothyroidism, depression with anxiety, chronic pain and CAD. Patient reported increasing shortness of breath over the past day. It has gotten worse today. She had noted increasing edema to the lower extremities as well. Patient receives dialysis. She is due for dialysis today. Patient is taking Lasix as well. She came to the ER for further evaluation. In the ER patient was evaluated. Patient was found to be hypoxic. 09:13 This 85 yrs old Female presents to ER via Wheelchair with complaints of Wheezing < 1 jr8 Year, Shortness Of Breath, Cough. 09:13 Associated signs and symptoms: The patient has no apparent associated signs or jr8 symptoms. Severity of symptoms: At their worst the symptoms were moderate in the emergency department the symptoms are unchanged. The patient has not experienced similar symptoms in the past. The patient has not recently seen a physician. This is a rest and with exertion. Patient stated that she started wheezing this morning and since then has had increased work of breathing. Patient with audible wheezing upon arrival. Allergies codeine Allergy (Severe, Verified 04/02/21 13:57) Nausea/Vomiting Home medications list reviewed: Yes Home Medications: Atorvastatin Calcium [Lipitor*] 20 mg PO BEDTIME 04/29/19 Levothyroxine [Synthroid*] 25 mcg PO [id number] 04/29/19 Prasugrel HCl [Effient] 10 mg PO DAILY 04/29/19 Nepro Shake [Nepro*] 237 ml PO BID #60 can 04/03/21 Sevelamer Carbonate [Renvela*] 800 mg PO TIDWM #90 tablet 04/03/21 Amlodipine [Norvasc*] 10 mg PO DAILY #30 tab 04/07/21 Metoprolol Tartrate [Lopressor*] 50 mg PO BID #60 tab 04/07/21 Calcitrol [Rocaltrol*] 0.25 mcg PO DAILY #0 cap 05/03/21 Cyanocobalamin [Vitamin B-12*] 1,000 mcg PO DAILY tab 05/03/21 Docusate [Colace Cap*] 100 mg PO DAILY cap 05/03/21 Furosemide [Lasix*] 40 mg PO BIDL #60 tab 05/03/21 Hydralazine [Apresoline*] 25 mg PO BID tab 05/03/21 Hydrocodone 5/APAP 325 [[place] 5/325*] 1 tab PO Q6H PRN tab 05/03/21 Mirtazapine [Remeron*] 15 mg PO BEDTIME PRN tab 05/03/21 - Past Medical/Surgical History Diabetic: No -: Hypertension -: Hyperlipidemia -: History CVA -: Carotid arterial disease with prior stent -: CAD -: Hypothyroidism -: Chronic diastolic CHF -: Depression with anxiety -: Chronic pain -: End-stage renal disease on hemodialysis -: Carotid stent -: Right partial hip replacement Psychosocial/ Personal History: Patient is a . She lives by herself. - Family History Father Medical History: Stroke Mother Medical History: Diabetes - Social History Smoking Status: Never smoker Alcohol use: No CD- Drugs: No Caffeine use: Yes Place of Residence: Home Review of Systems 10-point ROS is otherwise unremarkable Respiratory: SOB with Excertion Cardiovascular: Edema Physical Examination Temp Pulse Resp BP Pulse Ox 98.5 F 68 18 219/85 H 97 05/03/21 05:56 05/03/21 05:56 05/03/21 05:56 05/03/21 08:40 05/03/21 05:56 General: Oriented x3, Cooperative HEENT: Atraumatic Neck: Supple Respiratory: Diminished Cardiovascular: Regular rate/rhythm, Edema Gastrointestinal: Soft and benign, Non-distended Musculoskeletal: No clubbing, No contractures Integumentary: No rashes, No cyanosis Neurological: Normal speech Laboratory Data (last 24 hrs) 05/02/21 08:35: PT 10.4, INR 0.91 05/02/21 08:35: WBC 10.20, Hgb 9.1 L, Hct 28.5 L, Plt Count 238 05/02/21 08:35: Sodium 139, Potassium 3.8, BUN 48 H, Creatinine 5.14 H*, Glucose 111 H, Magnesium 2.3, Total Bilirubin 0.3, AST 31, ALT 30, Alkaline Phosphatase 91 Imagings Data: EXAM DESCRIPTION: RAD - Chest Single View - 05/03/2021 7:21 am CLINICAL HISTORY: follow up Pulm. edema/effusions COMPARISON: Chest Single View dated 05/02/2021; Chest Single View dated 04/07/2021; Chest Single View dated 03/31/2021; Chest Single View dated 03/28/2021; Chest Abd Pelvis Wo Con dated 03/28/2021 FINDINGS: Lines: Similar dialysis catheter. Lungs: Left pleural effusion and underlying airspace opacities which is unchanged. Pleural: Small moderate left effusion is unchanged small right effusion. Cardiac: The heart size is within normal limits. Bones: No acute fractures. Other: IMPRESSION: Unchanged left pleural effusion and likely underlying atelectasis. Small right effusion. Conclusions/Impression: ESRD -Acute HD yesterday HTN with CKD/ CHF -Continue Amlodipine Diastolic CHF, A/C -Acute HD yesterday with UF -Agree with increasing diuretic Anemia in CKD -Give Retacrit X1 CKD MBD -Start Renvela Thank you kindly for the consultation. Case reviewed with Dr. Julien
[2021-05-03] MEDS ORDERED: AMLODIPINE 10 MG TAB PO SCH (09:00)
[2021-05-03] MEDS ORDERED: CALCITROL 0.25 MCG CAP PO SCH (09:00)
[2021-05-03] MEDS ORDERED: PRASUGREL (EFFIENT) 10 MG TAB PO SCH (09:00)
[2021-05-03] MEDS ORDERED: DOCUSATE NA 100 MG CAP PO SCH (09:00)
[2021-05-03] MEDS ORDERED: CYANOCOBALAMIN 1,000 MCG TAB PO SCH (09:00)
[2021-05-03] MEDS ORDERED: EPOETIN ALFA-EPBX 10,000 UNIT/ML VIAL SQ ONE (10:45)
--- NOTE | 2021-05-03 12:07 | P.DS ---
Admission Date: 05/02/21 Discharge Date: 05/03/21 Primary Care Provider: Dr. Ramirez; Nephrology-Dr. Thornton Disposition: DC HOME/HOME HEALTH CARE Discharge Condition: GOOD Reason for Admission: Shortness of breath, Edema to the lower extremity Consultations: Nephrology-Dr. Porter Procedures: COVID: Negative Chest x-ray: COMPARISON: Chest Single View dated 04/07/2021; Chest Single View dated 03/31/2021; Chest Single View dated 03/28/2021; Chest Pa And Lat (2 Views) dated 09/19/2020 FINDINGS: Lines: Right IJ approach dialysis catheter with tip overlying the right atrium. Lungs: Left basilar opacification which is similar. Pleural: Small to moderate left and small right pleural effusions. Cardiac: Cardiomegaly. Bones: No acute fractures. IMPRESSION: Small to moderate left and small right pleural effusion and presumably underlying atelectasis. Follow up CXR 05/03/2021: COMPARISON: Chest Single View dated 05/02/2021; Chest Single View dated 04/07/2021; Chest Single View dated 03/31/2021; Chest Single View dated 03/28/2021; Chest Abd Pelvis Wo Con dated 03/28/2021 FINDINGS: Lines: Similar dialysis catheter. Lungs: Left pleural effusion and underlying airspace opacities which is unchanged. Pleural: Small moderate left effusion is unchanged small right effusion. Cardiac: The heart size is within normal limits. Bones: No acute fractures. IMPRESSION: Unchanged left pleural effusion and likely underlying atelectasis. Small right effusion. Medical Problem List: Dyspnea with hypoxia secondary to bilateral pleural effusions/pulmonary edema related to acute on chronic diastolic CHF End-stage renal disease on hemodialysis Hypertension Hypothyroidism Hyperlipidemia Anemia chronic disease with B12 deficiency Depression with anxiety Chronic pain CAD Brief History of Present Illness: 85-year-old female with history of end-stage renal disease on hemodialysis, hypertension, chronic diastolic CHF with chronic pleural effusion, hyperlipidemia, anemia chronic disease and B12 deficiency, hypothyroidism, depression with anxiety, chronic pain and CAD. Patient reported increasing shortness of breath over the past day. It has gotten worse today. She had noted increasing edema to the lower extremities as well. Patient receives dialysis. She is due for dialysis today. Patient is taking Lasix as well. She came to the ER for further evaluation. In the ER patient was evaluated. Patient was found to be hypoxic. Patient required IV diuresis in the ER. Chest x-ray showed pleural effusions bilateral. Lab showed white count 10.2, hemoglobin 9.1. Platelet count 238. Sodium 139, potassium 3.8. BUN 48, creatinine 5.14. GFR of 9. Glucose 111. BNP greater than 40,000. Troponin unremarkable. Patient was admitted for treatment. Hospital Course: Patient presented with dyspnea with noted hypoxia secondary to bilateral pleural effusions/pulmonary edema related to acute on chronic diastolic CHF. Patient was admitted for treatment. Patient received dialysis with improvement. Case discussed with nephrology. Patient had been taking Lasix once a day. Lasix was increased to twice daily. Patient has done well. At discharge patient still requires oxygen. Continue home oxygen to maintain sats above 93%. Currently on 2 L per nasal cannula. This can be weaned off over time with the help of nephrology. At discharge patient will continue with the 1500 cc/day fluid restriction and low-salt diet. Recommend to monitor her weight daily. If her weight increases further adjustment in medication may be required. At discharge patient will continue with Lasix 40 mg 1 pill twice daily. Further adjustment can be done with the help of nephrology. Recommend follow-up with nephrology within 1 week. Recommend to recheck labBMP in 1 week to monitor progress. Recommend to recheck chest x-ray in 2 to 4 weeks to monitor resolution. Mild to physical therapy will be arranged prior to discharge. Home oxygen to be arranged prior to discharge. Patient with end-stage renal disease on hemodialysis. Patient received dialysis. Overall stable. Patient will receive dialysis prior to discharge. Patient will continue with dialysis every Saturday, and Saturday. Patient will continue with her medication including Renvela 800 mg 3 times a day and calcitriol 0.25 mcg daily. Patient with hypertension. Overall stable. At discharge patient will continue with Norvasc 10 mg daily, hydralazine 25 mg 1 pill twice daily and metoprolol 50 mg 1 pill twice daily. Recommend to maintain blood pressure less than 130/80. Further adjustment can be done by her PCP or nephrology. Patient with hypothyroidism. At discharge patient will continue with levothyroxine 25 mcg daily. Patient with hyperlipidemia. At discharge patient will continue his Lipitor 20 mg daily. Patient with anemia chronic disease with B12 deficiency. At discharge she will continue with B12 supplementation daily. Patient with depression with anxiety. At discharge we will continue with mirtazapine 15 mg at bedtime as needed for insomnia. Patient with chronic pain. At discharge we will continue with hydrocodone as needed. Patient with history of CAD. At discharge patient will continue with Effient 10 mg daily. Vital Signs/Physical Exam: Temp Pulse Resp BP Pulse Ox 98.5 F 68 18 165/72 H 97 05/03/21 12:06 05/03/21 12:06 05/03/21 12:06 05/03/21 12:06 05/03/21 12:06 General: Alert, In no apparent distress, Oriented x3, Cooperative HEENT: Atraumatic Neck: Supple Respiratory: Clear to auscultation bilaterally, Normal air movement, Other (Currently on 2 L) Cardiovascular: Normal pulses, Regular rate/rhythm Gastrointestinal: No tenderness, No masses, No rebound, No guarding Musculoskeletal: No erythema, No tenderness, No warmth Integumentary: No tenderness/swelling, No erythema, No warmth, No cyanosis Neurological: Normal speech, Normal strength at 5/5 x4 extr, Normal tone, Normal affect Laboratory Data at Discharge: WBC 8.10 K/uL (4.3-10.9) D 05/03/21 05:28 Hgb 8.3 g/dL (12.0-15.0) L 05/03/21 08:19 Hct 25.6 % (36.0-45.0) L 05/03/21 08:19 Plt Count 195 K/uL (152-406) 05/03/21 05:28 PT 10.4 SECONDS (9.5-12.5) 05/02/21 08:35 INR 0.91 05/02/21 08:35 Sodium 136 mmol/L (136-145) 05/03/21 05:28 Potassium 3.9 mmol/L (3.5-5.1) 05/03/21 05:28 BUN 27 mg/dL (7-18) H D 05/03/21 05:28 Creatinine 3.23 mg/dL (0.55-1.3) H D 05/03/21 05:28 Glucose 116 mg/dL (74-106) H 05/03/21 05:28 Magnesium 2.1 mg/dL (1.8-2.4) 05/03/21 05:28 Total Bilirubin 0.3 mg/dL (0.2-1.0) 05/02/21 08:35 AST 31 U/L (15-37) 05/02/21 08:35 ALT 30 U/L (12-78) 05/02/21 08:35 Alkaline Phosphatase 91 U/L (45-117) 05/02/21 08:35 Home Medications: Atorvastatin Calcium [Lipitor*] 20 mg PO BEDTIME 04/29/19 Levothyroxine [Synthroid*] 25 mcg PO [id number] 04/29/19 Prasugrel HCl [Effient] 10 mg PO DAILY 04/29/19 Nepro Shake [Nepro*] 237 ml PO BID #60 can 04/03/21 Sevelamer Carbonate [Renvela*] 800 mg PO TIDWM #90 tablet 04/03/21 Amlodipine [Norvasc*] 10 mg PO DAILY #30 tab 04/07/21 Metoprolol Tartrate [Lopressor*] 50 mg PO BID #60 tab 04/07/21 Calcitrol [Rocaltrol*] 0.25 mcg PO DAILY #0 cap 05/03/21 Cyanocobalamin [Vitamin B-12*] 1,000 mcg PO DAILY tab 05/03/21 Docusate [Colace Cap*] 100 mg PO DAILY cap 05/03/21 Furosemide [Lasix*] 40 mg PO BIDL #60 tab 05/03/21 Hydralazine [Apresoline*] 25 mg PO BID tab 05/03/21 Hydrocodone 5/APAP 325 [[place] 5/325*] 1 tab PO Q6H PRN tab 05/03/21 Mirtazapine [Remeron*] 15 mg PO BEDTIME PRN tab 05/03/21 New Medications: Furosemide [Lasix*] 40 mg PO BIDL #60 tab Physician Discharge Instructions: Patient presented with dyspnea with noted hypoxia secondary to bilateral pleural effusions/pulmonary edema related to acute on chronic diastolic CHF. Patient was admitted for treatment. Patient received dialysis with improvement. Case discussed with nephrology. Patient had been taking Lasix once a day. Lasix was increased to twice daily. Patient has done well. At discharge patient still requires oxygen. Continue home oxygen to maintain sats above 93%. Currently on 2 L per nasal cannula. This can be weaned off over time with the help of nephrology. At discharge patient will continue with the 1500 cc/day fluid restriction and low-salt diet. Recommend to monitor her weight daily. If her w eight increases further adjustment in medication may be required. At discharge patient will continue with Lasix 40 mg 1 pill twice daily. Further adjustment can be done with the help of nephrology. Recommend follow-up with nephrology within 1 week. Recommend to recheck labBMP in 1 week to monitor progress. Recommend to recheck chest x-ray in 2 to 4 weeks to monitor resolution. Mild to physical therapy will be arranged prior to discharge. Home oxygen to be arranged prior to discharge. Patient with end-stage renal disease on hemodialysis. Patient received dialysis. Overall stable. Patient will receive dialysis prior to discharge. Patient will continue with dialysis every Saturday, and Saturday. Patient will continue with her medication including Renvela 800 mg 3 times a day and calcitriol 0.25 mcg daily. Patient with hypertension. Overall stable. At discharge patient will continue with Norvasc 10 mg daily, hydralazine 25 mg 1 pill twice daily and metoprolol 50 mg 1 pill twice daily. Recommend to maintain blood pressure less than 130/80. Further adjustment can be done by her PCP or nephrology. Patient with hypothyroidism. At discharge patient will continue with levothyroxine 25 mcg daily. Patient with hyperlipidemia. At discharge patient will continue his Lipitor 20 mg daily. Patient with anemia chronic disease with B12 deficiency. At discharge she will continue with B12 supplementation daily. Patient with depression with anxiety. At discharge we will continue with mirtazapine 15 mg at bedtime as needed for insomnia. Patient with chronic pain. At discharge we will continue with hydrocodone as needed. Patient with history of CAD. At discharge patient will continue with Effient 10 mg daily. Diet: Renal Activity: Fall precautions Followup: Cuong Pina MD [Primary Care Provider] - Time spent managing pt's care (in minutes): 55
[2021-05-03 14:44] VITALS: O2SAT 92
[2021-05-03 14:48] VITALS: BMI 16.5
[2021-05-03 19:24] VITALS: BP 167/74; TEMP 97.4
== END 2021-05-03 17:30 | disposition home or self-care (01) ==
LOC: ER 08:07 → ERHOLD 12:49 → 2ND 14:16
PROVIDERS: ADMIT Family Medicine; ATTEND Family Medicine
DX: I13.2 Hypertensive heart and chronic kidney disease with heart failure and with stage 5 chronic kidney disease, or end stage renal disease (principal); I50.33 Acute on chronic diastolic (congestive) heart failure; N18.6 End stage renal disease; D63.1 Anemia in chronic kidney disease; Z99.2 Dependence on renal dialysis; R09.02 Hypoxemia; I25.10 Atherosclerotic heart disease of native coronary artery without angina pectoris; I65.29 Occlusion and stenosis of unspecified carotid artery; E03.9 Hypothyroidism, unspecified; E78.5 Hyperlipidemia, unspecified; G89.29 Other chronic pain; F41.8 Other specified anxiety disorders; E53.8 Deficiency of other specified B group vitamins; Z95.820 Peripheral vascular angioplasty status with implants and grafts; Z86.73 Personal history of transient ischemic attack (TIA), and cerebral infarction without residual deficits; Z88.6 Allergy status to analgesic agent; Z20.822 Contact with and (suspected) exposure to COVID-19; Z82.3 Family history of stroke; Z83.3 Family history of diabetes mellitus
CPT/HCPCS: 93005; 85025 ×2; 80048 ×2; 36415; 83735 ×2; 85610; 82947; 80076; 85018; 85014; 84484; 83880; 71045 ×2; 90935; 94640; 96375; 96374; 99285; U0003; J0360; J1940; J1644 ×4; Q5106; J2930; G0257; G0378

== ENCOUNTER 2021-10-08 15:07 | Inpatient (IN) | payer OTHER ==
--- OUTSIDE RECORDS SUMMARY | 2021-10-08 15:11 | XMS REPORT | Continuity of Care Document ---
:1935 Author Organization [facility] t Address [address] [place] [address] Care Team Providers Name Role Phone ANENE Primary Care Physician Unavailable RENETTA Attending Clinician Unavailable ABHILASH Attending Clinician Unavailable Umu WILL, L Attending Clinician MARINO DYER Attending Clinician Unavailable KHADAR Attending Clinician Unavailable KHADAR Admitting Clinician Unavailable Payers Payer Name Policy Type Policy Number Effective Date Expiration Date S mihir MEDICARE PART A [id number] 2000 \T\ B 00:00:00 MEDICARE-PART B 5 [id number] 2018 00:00:00 Problems Condition Condition Condition Status Onset Resolution Last Treating Co mments Source Name Details Category Date Date Treatment Clinician Date HTN HTN Disease Active [facility]hypert[facility] (hypertens 3-04 Klaudia kes ion) ion) 00:00: Medical 00 [place] HLD HLD Disease Active [facility] (hyperlipi (hyperlipi 3-04 Klaudia kes demia) demia) 00:00: Medical 00 Center CAD CAD Disease Active [facility] (coronary (coronary 3-04 [facility] artery artery 00:00: Medical disease) disease) 00 Center TIA TIA Disease Active [facility] (transient (transient 3-03 Klaudia kes ischemic ischemic 00:00: Medica l attack) attack) 00 [place] Hip Hip Disease Active 2015-04 [facility] fracture fracture 0-10 ity of 00:00: [place] [id number] Medical [place] Femur Femur Disease Active 2015-04 [facility] fracture, fracture, 0-08 ity of right right 00:00: [place] 00 [facility] Branch Scoliosis Scoliosis Problem Active Com mon of lumbar of lumbar Spir it region due region due - [facility] to to degenerati degenerati Klaudia kes ve disease ve disease Me dical of spine of spine Center in adult in adult Presence Presence Problem Active Commo n of right of right Spirit artificial artificial - [facility]I hip joint hip joint [facility] Right Right Problem Active Common sciatic sciatic Spirit nerve pain nerve pain - [facility] Thoracogen Thoracogen Problem Active C ommon ic ic Spirit scoliosis scoliosis - CH I of of thoracic thoracic [facility] region region [facility] Pain of Pain of Problem Active Common right hip right hip Spir it joint pain joint pain - [facility] Allergies, Adverse Reactions, Alerts Allergy Allergy Status Severity Reaction(s) Onset Inactive Treating Comm ents Source Name Type Date Date Clinician Codeine Propensi Active [facility] 03 [facility] adverse 00:00: Medical reaction 00 [facility] CODEINE DRUG Active Hallucinates 2015-04 Uni vers INGREDI 0-08 ity of 00:00: [place] 00 Medical Branch Codeine Propensi Active Hallucinatio 2015-04 U nivers ty to ns 0-08 ity of adverse 00:00: [place] reaction 00 [facility] s Branch codeine Adverse Active Info Not Common Reaction Available Spiri t - [facility] Social History Social Habit Start Date Stop Date Quantity Comments Source History [facility] Alcohol Comment Medical C enter History [facility] 2018-06-16 2018-06-[address] [facility] Alcohol Frequency 00:00:00 00:00:00 Medical Center History [facility] 2018-06-16 2018-06-[address] [facility] Alcohol Std Drinks 00:00:00 00:00:00 Medica l Center History [facility] 2018-06-16 2018-06-[address] [facility] Alcohol Binge 00:00:00 00:00:[address] Tobacco use and 2018-06-15 2018-06-[address] [facility] [address] Klaudia kes exposure 00:00:00 00:00:00 Medical Center Alcohol intake 2017-02-28 2017-02-28 [facility] 00:00:00 00:00:00 Medical Branch Sex Ass[birth year] At [birth year] [facility] 00:00:00 00:00:00 Medical Branch Smoking Status Start Date Stop Date Source Never smoker [facility] Medications Ordered Filled Start Stop Current Ordering Indication Dosage Frequency Signature Comments Components Source Medication Medication Date Date Medication? Clinician (SIG) Name Name Tylenol 8 Tylenol 8 Yes Tucker 2 tablets Common Hour Hour 7-25 [place] as needed Spirit 00:00: - [facility] metoprolol Yes 50mg QD Take [address] (LOPRESSOR) 3-05 by mouth Luke s 25 MG 20:29: daily. Medical tablet 27 [place] prasugr Yes 10mg QD Take [address] (EFFIENT) 3-05 by mouth [facility]ukes 10 mg Tab 20:29: daily. Medica l tablet 27 [place] levothyroxi Yes 25ug Take [address] ne 3-05 mcg by Lukes (SYNTHROID, 20:29: mouth Medic al LEVOTHROID) 27 Every Center 25 MCG morning on tablet an empty stomach. losartan Yes 100mg QD Take [address] (COZAAR) 3-05 mg by [facility]ukes 100 MG 20:29: mouth Medical tablet 27 daily. [place] metoprolol Yes 50mg QD Take [address] (LOPRESSOR) 3-05 by mouth Luke s 25 MG 20:29: daily. [facility] [address] (EFFIENT) 3-05 by mouth [facility] 10 mg Tab 20:29: daily. Medica l tablet 27 [place] levothyrox Yes 25ug Take [address] ne 3-05 mcg by Lukes (SYNTHROID, 20:29: mouth Medic al LEVOTHROID) 27 Every Center 25 MCG morning on tablet an empty stomach. losartan Yes 100mg QD Take [address] (COZAAR) 3-05 mg by [facility]ukes 100 MG 20:29: mouth Medical tablet 27 daily. [place] metoprolol Yes 50mg QD Take [address] (LOPRESSOR) 3-05 by mouth Luke s 25 MG 20:29: daily. Medical tablet 27 [place] prasugr Yes 10mg QD Take [address] (EFFIENT) 3-05 by mouth [facility]ukes 10 mg Tab 20:29: daily. Medica l tablet 27 [place] levothyrox 2019-0 Yes 25ug Take [address] ne 3-05 mcg by Lukes (SYNTHROID, 20:29: mouth Medic al LEVOTHROID) 27 Every Center 25 MCG morning on tablet an empty stomach. losartan 2019-0 Yes 100mg QD Take [address] (COZAAR) 3-05 mg by Lukes 100 MG 20:29: mouth Medical tablet 27 daily. [place] metoprolol 20190 Yes 50mg QD Take [address] (LOPRESSOR) 3-05 by mouth Luke s 25 MG 20:29: daily. Medical tablet 27 [place] prasugrel 0 Yes 10mg QD Take [address] (EFFIENT) 3-05 by mouth [facility]ukes 10 mg Tab 20:29: daily. Medica l tablet 27 [place] levothyroxi Yes 25ug Take [address] ne 3-05 mcg by Lukes (SYNTHROID, 20:29: mouth Medic al LEVOTHROID) 27 Every Center 25 MCG morning on tablet an empty stomach. losartan 2018- Yes 100mg QD Take [address] (COZAAR) 3-05 mg by Lukes 100 MG 20:29: mouth Medical tablet 27 daily. [place] metoprolol 0 Yes 50mg QD Take [address] (LOPRESSOR) 3-05 by mouth Luke s 25 MG 20:29: daily. Medical tablet 27 [place] prasugr 0 Yes 10mg QD Take [address] (EFFIENT) 3-05 by mouth [facility]ukes 10 mg Tab 20:29: daily. Medica l tablet 27 [place] levothyroxi 0 Yes 25ug Take [address] ne 3-05 mcg by Lukes (SYNTHROID, 20:29: mouth Medic al LEVOTHROID) 27 Every Center 25 MCG morning on tablet an empty stomach. losartan 2018-0 Yes 100mg QD Take [address] (COZAAR) 3-05 mg by Lukes 100 MG 20:29: mouth Medical tablet 27 daily. [place] metoprolol 2019-0 Yes 50mg QD Take [address] (LOPRESSOR) 3-05 by mouth Luke s 25 MG 20:29: daily. Medical tablet 27 [place] prasugrel 0 Yes 10mg QD Take [address] (EFFIENT) 3-05 by mouth [facility]ukes 10 mg Tab 20:29: daily. Medica l tablet 27 [place] levothyroxi 2019-0 Yes 25ug Take [address] ne 3-05 mcg by Lukes (SYNTHROID, 20:29: mouth Medic al LEVOTHROID) 27 Every Center 25 MCG morning on tablet an empty stomach. losartan 2018-0 Yes 100mg QD Take [address] (COZAAR) 3-05 mg by Lukes 100 MG 20:29: mouth Medical tablet 27 daily. [place] metoprolol 0 Yes 50mg QD Take [address] (LOPRESSOR) 3-05 by mouth Luke s 25 MG 20:29: daily. Medical tablet 27 [place] prasugr 0 Yes 10mg QD Take [address] (EFFIENT) 3-05 by mouth Lukes 10 mg Tab 20:29: daily. Medica l tablet 27 [place] levothyroxi Yes 25ug Take [address] ne 3-05 mcg by Lukes (SYNTHROID, 20:29: mouth Medic al LEVOTHROID) 27 Every Center 25 MCG morning on tablet an empty stomach. losartan 2018- Yes 100mg QD Take [address] (COZAAR) 3-05 mg by Lukes 100 MG 20:29: mouth Medical tablet 27 daily. [place] metoprolol Yes 50mg QD Take [address] (LOPRESSOR) 3-05 by mouth Luke s 25 MG 20:29: daily. Medical tablet 27 [place] prasugr Yes 10mg QD Take [address] (EFFIENT) 3-05 by mouth [facility]ukes 10 mg Tab 20:29: daily. Medica l tablet 27 [place] levothyroxi Yes 25ug Take [address] ne 3-05 mcg by Lukes (SYNTHROID, 20:29: mouth Medic al LEVOTHROID) 27 Every Center 25 MCG morning on tablet an empty stomach. losartan 2018-0 Yes 100mg QD Take [address] (COZAAR) 3-05 mg by Lukes 100 MG 20:29: mouth Medical tablet 27 daily. [place] metoprolol 2019-0 Yes 50mg QD Take [address] (LOPRESSOR) 3-05 by mouth Luke s 25 MG 20:29: daily. Medical tablet 27 [place] prasugr 0 Yes 10mg QD Take [address] (EFFIENT) 3-05 by mouth [facility]ukes 10 mg Tab 20:29: daily. Medica l tablet 27 [place] levothyrox Yes 25ug Take [address] ne 3-05 mcg by Lukes (SYNTHROID, 20:29: mouth Medic al LEVOTHROID) 27 Every Center 25 MCG morning on tablet an empty stomach. losartan Yes 100mg QD Take [address] (COZAAR) 3-05 mg by [facility]ukes 100 MG 20:29: mouth Medical tablet 27 [...] 70 mg 00:00: EVERY [place] tablet 00 [facility] [facility] Branch Alendronate Alendronate Yes Tucker not Common Sodium Sodium Hilliard defined [facility] Metoprolol Metoprolol Yes Tucker not C ommon Succinate Succinate Hilliard defined [facility] Atorvastati Atorvastati Yes Tucker not Common n Calcium n Calcium [place]illiard defined [facility] Losartan Losartan Yes Tucker not Commo n Potassium Potassium Hilliard defined [facility] Prasugrel Prasugrel Yes Tucker not Com mon HCl HCl Hilliard defined [facility] Aspirin Aspirin Yes Tucker not Common Hilliard defined [facility] Levothyroxi Levothyroxi Yes Tucker not Common ne Sodium ne Sodium Hilliard defined [facility] Procedures This patient has no known procedures. Plan of Care Planned Activity Planned Date Details Comments Source Future Scheduled 2020-12-14 INFLUENZA VACCINE (#1) [facility] 00:00:00 [code = INFLUENZA Medical Ce nter VACCINE (#1)] Future Scheduled 2020-12-14 INFLUENZA VACCINE (#1) [facility] 00:00:00 [code = INFLUENZA Medical Ce nter VACCINE (#1)] Future Scheduled 2020-12-14 INFLUENZA VACCINE (#1) [facility] 00:00:00 [code = INFLUENZA Medical Ce nter VACCINE (#1)] Future Scheduled 2020-12-14 INFLUENZA VACCINE (#1) [facility] 00:00:00 [code = INFLUENZA Medical Ce nter VACCINE (#1)] Future Scheduled 2020-12-14 INFLUENZA VACCINE (#1) [facility] 00:00:00 [code = INFLUENZA Medical Ce nter VACCINE (#1)] Future Scheduled 2020-12-14 INFLUENZA VACCINE (#1) [facility] 00:00:00 [code = INFLUENZA Medical Ce nter VACCINE (#1)] Future Scheduled 2020-04-[address] [facility] Test 00:00:00 (12+) [code = Medical Center DEPRESSION SCREENING (12+)] Future Scheduled 2020-04-15 FALLS RISK SCREENING [facility] Test 00:00:00 [code = FALLS RISK Medical C enter SCREENING] Future Scheduled 2020-04-[address] [facility] Test 00:00:00 (12+) [code = Medical Center DEPRESSION SCREENING (12+)] Future Scheduled 2020-04-15 F[address]IS[address] [facility]CREENING [facility] Test 00:00:00 [code = FALLS RISK Medical C enter SCREENING] Future Scheduled 2020-04-[address] [facility] Test 00:00:00 (12+) [code = Medical Center DEPRESSION SCREENING (12+)] Future Scheduled 2020-04-15 F[address]S RISK SCREENING [facility] Test 00:00:00 [code = FALLS RISK Medical C enter SCREENING] Future Scheduled 2020-04-[address] [facility] Test 00:00:00 (12+) [code = Medical Center DEPRESSION SCREENING (12+)] Future Scheduled 2020-04-15 F[address]S [address]ISK SCREENING [facility] Test 00:00:00 [code = FALLS RISK Medical C enter SCREENING] Future Scheduled 2020-04-[address] [facility] Test 00:00:00 (12+) [code = Medical Center DEPRESSION SCREENING (12+)] Future Scheduled 2020-04-15 F[address]S [address]ISK SCREENING [facility] Test 00:00:00 [code = FALLS RISK Medical C enter SCREENING] Future Scheduled 2020-04-[address] [facility] Test 00:00:00 (12+) [code = Medical Center DEPRESSION SCREENING (12+)] Future Scheduled 2020-04-15 F[address]S [address]ISK SCREENING [facility] Test 00:00:00 [code = FALLS RISK Medical C enter SCREENING] Future Scheduled 2019-12-15 INFLUENZA VACCINE (#1) [facility] 00:00:00 [code = INFLUENZA Medical Ce nter VACCINE (#1)] Future Scheduled 2019-12-15 INFLUENZA VACCINE (#1) [facility] 00:00:00 [code = INFLUENZA Medical Ce nter VACCINE (#1)] Future Scheduled 2019-12-15 INFLUENZA VACCINE (#1) [facility] 00:00:00 [code = INFLUENZA Medical Ce nter VACCINE (#1)] Future Scheduled 2001-10-[address] [facility] Test 00:00:00 WELLNESS (YEAR 2 or Medical Center FIRST YEAR if no IPPE) [code = MEDICARE ANNUAL WELLNESS (YEAR 2 or FIRST YEAR if no IPPE)] Future Scheduled 2001-10-[address] [facility] Test 00:00:00 WELLNESS (YEAR 2 or Medical Center FIRST YEAR if no IPPE) [code = MEDICARE ANNUAL WELLNESS (YEAR 2 or FIRST YEAR if no IPPE)] Future Scheduled 2001-10-[address] [facility] Test 00:00:00 WELLNESS (YEAR 2 or Medical Center FIRST YEAR if no IPPE) [code = MEDICARE ANNUAL WELLNESS (YEAR 2 or FIRST YEAR if no IPPE)] Future Scheduled 2001-10-[address] [facility] Test 00:00:00 WELLNESS (YEAR 2 or Medical Center FIRST YEAR if no IPPE) [code = MEDICARE ANNUAL WELLNESS (YEAR 2 or FIRST YEAR if no IPPE)] Future Scheduled 2001-10-[address] [facility] Test 00:00:00 WELLNESS (YEAR 2 or Medical Center FIRST YEAR if no IPPE) [code = MEDICARE ANNUAL WELLNESS (YEAR 2 or FIRST YEAR if no IPPE)] Future Scheduled 2001-10-[address] [facility] Test 00:00:00 WELLNESS (YEAR 2 or Medical Center FIRST YEAR if no IPPE) [code = MEDICARE ANNUAL WELLNESS (YEAR 2 or FIRST YEAR if no IPPE)] Future Scheduled 2001-10-[address] [facility] Test 00:00:00 WELLNESS (YEAR 2 or Medical Center FIRST YEAR if no IPPE) [code = MEDICARE ANNUAL WELLNESS (YEAR 2 or FIRST YEAR if no IPPE)] Future Scheduled 2001-10-[address] [facility] Test 00:00:00 WELLNESS (YEAR 2 or Medical Center FIRST YEAR if no IPPE) [code = MEDICARE ANNUAL WELLNESS (YEAR 2 or FIRST YEAR if no IPPE)] Future Scheduled 2001-10-[address] [facility] Test 00:00:00 WELLNESS (YEAR 2 or Medical Center FIRST YEAR if no IPPE) [code = MEDICARE ANNUAL WELLNESS (YEAR 2 or FIRST YEAR if no IPPE)] Future Scheduled 2000-10-14 PNEUMOCOCCAL 65+ YRS [facility] Test 00:00:00 (1 of 1 - [facility] Center [id number] PCV13) [code = PNEUMOCOCCAL 65+ YRS (1 of 1 - VKBH72_Qxawknu PCV13)] Future Scheduled 2000-10-14 PNEUMOCOCCAL 65+ YRS [facility] Test 00:00:00 (1 of 1 - [facility] Center [id number]_Faindjr PCV13) [code = PNEUMOCOCCAL 65+ YRS (1 of 1 - SAVK00_Xtrrflo PCV13)] Future Scheduled 2000-10-14 PNEUMOCOCCAL 65+ YRS [facility] Test 00:00:00 (1 of 1 [facility] Center [id number]_Lsykeud PCV13) [code = PNEUMOCOCCAL 65+ YRS (1 of 1 - VPSW29_Vcaxpme PCV13)] Future Scheduled 2000-10-14 PNEUMOCOCCAL 65+ YRS [facility] Test 00:00:00 (1 of 1 [facility] Center DOLH34_Mlxsbgn PCV13) [code = PNEUMOCOCCAL 65+ YRS (1 of 1 - QZJD86_Hxhiguz PCV13)] Future Scheduled 2000-10-14 PNEUMOCOCCAL 65+ YRS [facility] Test 00:00:00 (1 of 1 [facility] Center CDPA23_Ugpnlun PCV13) [code = PNEUMOCOCCAL 65+ YRS (1 of 1 - LETU52_Exgtghz PCV13)] Future Scheduled 2000-10-14 PNEUMOCOCCAL 65+ Y[facility] Test 00:00:00 (1 of 1 [facility] QLFL29_Vfeugbf PCV13) [code = PNEUMOCOCCAL 65+ YRS (1 of 1 - YBIF25_Qfcxrmo PCV13)] Future Scheduled 2000-10-14 PNEUMOCOCCAL 65+ Y[facility] Test 00:00:00 (1 of 1 [facility] UQQS76_Qgrvrcj PCV13) [code = PNEUMOCOCCAL 65+ YRS (1 of 1 - TPBN53_Rnpqsmq PCV13)] Future Scheduled 2000-10-14 PNEUMOCOCCAL 65+ Y[facility] Test 00:00:00 (1 of 1 [facility] Center BMXO45_Sottphl PCV13) [code = PNEUMOCOCCAL 65+ YRS (1 of 1 - RXYS73_Lopxiqs PCV13)] Future Scheduled 2000-10-14 PNEUMOCOCCAL 65+ Y[facility] Test 00:00:00 (1 of 1 [facility] Center ASLG29_Vcepdoj PCV13) [code = PNEUMOCOCCAL 65+ YRS (1 of 1 - WEEM43_Gomevoo PCV13)] Future Scheduled 1985-10-14 SHINGLES VACCINES ([address] [facility] Test 00:00:00 of 2) [code = SHINGLES Medic al Center VACCINES (1 of 2)] Future Scheduled 1985-10-14 SHINGLES VACCINES ([address] [facility] Test 00:00:00 of 2) [code = SHINGLES Medic al Center VACCINES (1 of 2)] Future Scheduled 1985-10-14 SHINGLES VACCINES ([address] [facility] Test 00:00:00 of 2) [code = SHINGLES Medic al Center VACCINES (1 of 2)] Future Scheduled 1985-10-14 SHINGLES VACCINES ([address] [facility] Test 00:00:00 of 2) [code = SHINGLES Medic al Center VACCINES (1 of 2)] Future Scheduled 1985-10-14 SHINGLES VACCINES ([address] [facility] Test 00:00:00 of 2) [code = SHINGLES Medic al Center VACCINES (1 of 2)] Future Scheduled 1985-10-14 SHINGLES VACCINES ([address] [facility] Test 00:00:00 of 2) [code = SHINGLES Medic al Center VACCINES (1 of 2)] Future Scheduled 1954-10-14 DTAP/TDAP/TD [facility]ACCINES [facility] 00:00:00 (1 - Tdap) [code = Medical C enter DTAP/TDAP/TD VACCINES (1 - Tdap)] Future Scheduled 1954-10-14 DTAP/TDAP/TD VACCINES [facility] 00:00:00 (1 - Tdap) [code = Medical C enter DTAP/TDAP/TD VACCINES (1 - Tdap)] Future Scheduled 1954-10-14 DTAP/TDAP/TD VACCINES [facility] 00:00:00 (1 - Tdap) [code = Medical C enter DTAP/TDAP/TD VACCINES (1 - Tdap)] Future Scheduled 1954-10-14 DTAP/TDAP/TD VACCINES [facility] 00:00:00 (1 - Tdap) [code = Medical C enter DTAP/TDAP/TD VACCINES (1 - Tdap)] Future Scheduled 1954-10-14 DTAP/TDAP/TD VACCINES [facility] 00:00:00 (1 - Tdap) [code = Medical C enter DTAP/TDAP/TD VACCINES (1 - Tdap)] Future Scheduled 1954-10-14 DTAP/TDAP/TD VACCINES [facility] 00:00:00 (1 - Tdap) [code = Medical C enter DTAP/TDAP/TD VACCINES (1 - Tdap)] Future Scheduled 1947 COVID-19 VACCINE (1) [facility] 00:00:00 [code = COVID-[address] VACCINE (1)] Future Scheduled 1947 COVID-19 VACCINE (1) [facility] 00:00:00 [code = COVID-[address] VACCINE (1)] Future Scheduled 1947 COVID-19 VACCINE (1) [facility] 00:00:00 [code = COVID-[address] VACCINE (1)] Future Scheduled 1947 COVID-19 VACCINE (1) [facility] 00:00:00 [code = COVID-[address] VACCINE (1)] Future Scheduled 1947 COVID-19 VACCINE (1) [facility] 00:00:00 [code = COVID-[address] VACCINE (1)] Future Scheduled 1947 COVID-19 VACCINE (1) [facility] 00:00:00 [code = COVID-[address] VACCINE (1)] Encounters Start End Encounter Admission Attending Care Care Encounter Source Date/Time Date/Time Type Type Clinicians Facility Department ID 2021-05-10 Outpatient STLMLC STLC [id number] Common 14:37:15 [facility] 2021-08-01 2021-08-01 Outpatient Ananda [facility] [id number] Univers 09:00:00 09:00:00 ROXY [id number] edgar [facility] 2021-08-01 2021-08-01 Outpatient Ananda [facility] [id number] Univers 09:00:00 09:00:00 ROXY hernández [facility] 2021-07-01 2021-07-01 Outpatient HANSA HUNG [id number] [place] 00:00:00 00:00:00 YUE hernandez 2021-06-25 2021-06-25 Outpatient HANSA HUNG [id number] [place] 00:00:00 00:00:00 YUE hernandez 2020-10-03 2020-10-03 [id number] Univers 00:00:00 00:00:00 [facility] [id number] it y of Surgical [id number] Hi as Specialti [id number] Md dical es [address] [place] 2020-04-29 2020-04-29 [facility] [id number] Univers 15:00:00 15:00:[id number] [facility] 2020-04-29 2020-04-29 Outpatient Ananda [facility] [id number] Univers 15:00:00 15:00:[address] [facility] 2018-11-06 2018-11-06 Outpatient [facility] [id number] Common 11:00:00 11:00:00 [facility] 2018-10-09 2018-10-09 Outpatient Marshal Arayat [id number] Common 10:30:00 10:30:00 t [facility] - [facility] Results Test Description Test Time Test Comments Results Result Comments Source CALCIUM, IONIZED 2018-06-17 06:48:00 Test Item Value Reference Range Interpretation Comme nts CALCIUM IONIZED (BEAKER) (test code = 698) 1.05 mmol/L 1.12-1.27 L PH, BLOOD (BEAKER) (test code = 1810) 7.43 [id number] 06:12:00 Test Item Value Reference Range Interpretation Comments PHOSPHORUS (BEAKER) (test code = 3.4 mg/dL 2.3-4.7 604) [id number] 06:12:00 Test Item Value Reference Range Interpretation Comments MAGNESIUM (BEAKER) (test code = 1.7 mg/dL 1.6-2.6 627) BASIC METABOLIC [id number] 06:12:00 Test Item Value Reference Range Interpretation [...] PATIEN TS. CBC W/PLT COUNT & AUTO [id number] 05:34:00 Test Item Value Reference Range Interpretation [...] code = 2801) MR, MRA, BRAIN, WITHOUT [id number] 10:59:00Reason for exam:->Ischemic Stroke EvaluationFINAL REPORT MRA Head CLINICAL HISTORY: Stroke TECHNIQUE: MRA of the head utilizing 3-D gter-hp-egiubc technique, with 3-D reconstructions. COMPARISON: None IMPRESSION: Allowing for mild motion degradation, there is no evidence for a [place] proximal branch vessel occlusion. Distal branch vessel occlusions cannot be excluded. Aneurysms cannot be excluded. MRA Neck CLINICAL HISTORY: Stroke TECHNIQUE: MRA of the neck utilizing 2-D and 3-D vvxl-uv-kmyhwm technique, with 3-D reconstructions. COMPARISON: None IMPRESSION: [...] MDReport Verified Date/Time: 06/16/2018 10:59:34 Reading Location: [facility] C0[facility] Neuro Reading Room MR, MRA, NECK, WITHOUT IV [id number] 10:59:00Reason for exam:- >Ischemic Stroke EvaluationFINAL REPORT MRA Head CLINICAL HISTORY: Stroke TECHNIQUE: MRA of the head utilizing 3-D yabu-io-anqiwm technique, with 3-D reconstructions. COMPARISON: None IMPRESSION: Allowing for mild motion degradation, there is no evidence for a [place] of [place] proximal branch vessel occlusion. Distal branch vessel occlusions cannot be excluded. Aneurysms cannot be excluded. MRA Neck CLINICAL HISTORY: Stroke TECHNIQUE: MRA of the neck utilizing 2-D and 3-D eixi-qp-urfpaw technique, with 3-D reconstructions. COMPARISON: None IMPRESSION: [...] MDReport Verified Date/Time: 06/16/2018 10:59:34 Reading Location: [address] Neuro Reading Room MR, BRAIN, WITHOUT [id number] 10:52:00Reason for exam:->Ischemic Stroke EvaluationFINAL REPORT MRI [...] MDReport Verified Date/Time: 06/16/2018 10:52:22 Reading Location: [address] Neuro Reading Room HEMOGLOBIN [id number] 09:43:00 Test Item Value Reference Range Interpretation Comments HEMOGLOBIN A1C (BEAKER) (test code = 5.9 % 4.3-6.1 368) VITAMIN [id number] 06:40:00 Test Item Value Reference Range Interpretation Comments VITAMIN B12 (BEAKER) (test code = 375 pg/mL [id number] 774) TSH/FREE T4 IF [id number] 05:45:00 Test Item Value Reference Range Interpretation Comments THYROID STIMULATING HORMONE 4.44 uIU/mL 0.35-4.94 (BEAKER) (test code = 772) LIPID [id number] 05:27:00 Test Item Value Reference Range Interpretation [...]
[2021-10-08] MEDS ORDERED: FUROSEMIDE 40 MG/4 ML VIAL ONE (16:07)
[2021-10-08 16:15] LABS: Hematocrit 29.6 % (36.0-45.0); Lymphocytes % 8.5 % (15.3-44.8); MCV 87.7 fL (80-100); MPV 7.7 fL (7.6-11.3); RBC Red Blood Cell Count 3.38 M/uL (3.86-4.86)
[2021-10-08 16:17] LABS: Protime INR 1.02
[2021-10-08 16:27] LABS: Albumin 3.1 g/dL (3.4-5.0); Bilirubin Direct 0.3 mg/dL (0-0.2); Bilirubin Total 0.7 mg/dL (0.2-1.0); Magnesium 2.2 mg/dL (1.8-2.4); Potassium 4.7 mmol/L (3.5-5.1); Protein, Total 7.2 g/dL (6.4-8.2); Troponin High Sensitivity 34.6 pg/mL (<58.9)
[2021-10-08] MEDS ORDERED: LEVALBUTEROL 1.25 MG/3 ML NEB ONE (16:32)
--- NOTE | 2021-10-08 16:44 | RAD REPORT ---
EXAM DESCRIPTION: RAD - Chest Single View - 10/08/2021 4:16 pm CLINICAL HISTORY: SOB COMPARISON: April 2021 TECHNIQUE: AP portable chest image was obtained 10/08/2021 4:16 pm . FINDINGS: Interstitial and alveolar opacities are present more pronounced in the left base. Left ple ural effusion is present. Left lung base findings are similar to the prior study. Lung volumes are lo w. Heart size is upper normal. Right-sided double-lumen dialysis catheter in place. Scattered alveola r opacities are present generally sparing the right upper lung field. No pneumothorax. No acute bony abnormality seen. No acute aortic findings suspected. IMPRESSION: CHF/volume overload pattern with left pleural effusion. Pattern is similar to the April 2021 study.
[2021-10-08] MEDS ORDERED: CEFTRIAXONE 1000 MG/VIAL ONE (17:59)
[2021-10-08] MEDS ORDERED: AZITHROMYCIN 500 MG INJ IVPB ONE (17:59)
[2021-10-08] MEDS ORDERED: NA CHLORIDE 0.9% 250 ML ONE (17:59)
--- NOTE | 2021-10-08 18:17 | ER ---
Nurse's Notes [facility] Name: Isadora Jeffery Age: 85 yrs Sex: Female : 1935 Arrival Date: 10/08/2021 Time: 15:09 Bed 3 Private MD: Diagnosis: Hypertensive heart and chronic kidney disease with heart failure and with stage 5 chronic kidney disease, or end stage renal disease;Hypoxemia Presentation: 10/08 15:15 Chief complaint: Patient's son or daughter states: pt did not go to dialysis on Saturday, vg1 pt goes MWF; pt c/o SOB with dry cough and weakness that began on Saturday. Denies ABD pain or Chest pain. 15:15 Coronavirus screen: Vaccine status: Patient reports receiving the 2nd dose of the covid vg1 vaccine. Client denies travel out of the [place] in the last 14 days. Ebola Screen: Patient denies exposure to infectious person. Patient denies travel to an Ebola-affected area in the 21 days before illness onset. Initial Sepsis Screen: Does the patient meet any 2 criteria? RR > 20 per min. HR > 90 bpm. Does the patient have a suspected source of infection? No. Patient's initial sepsis screen is negative. Risk Assessment: Do you want to hurt yourself or someone else? Patient reports no desire to harm self or others. Onset of symptoms was October 06, 2021. 15:15 Method Of Arrival: Wheelchair vg1 15:15 Acuity: ROMELIA 2 vg1 Triage Assessment: 15:35 General: Appears in no apparent distress. uncomfortable. Pain: Denies pain. vg1 Respiratory: Reports cough that is dry, Airway is patent Respiratory effort is even, labored, Respiratory pattern is tachypnea Onset: The symptoms/episode began/occurred Saturday, the patient has moderate shortness of breath. 20:30 General: Behavior is calm. as6 Historical: - Allergies: 15:35 Codeine; vg1 - Home Meds: 17:56 furosemide 40 mg oral tab 2 times per day [Active]; metoprolol tartrate 50 mg Oral tab aa5 once daily [Active]; mirtazapine 15 mg Oral tab once daily [Active]; cyanocobalamin (vitamin B-12) 1,000 mcg/mL injection syrg once a month [Active]; prasugrel 10 mg oral tab 1 tab once daily [Active]; aspirin 81 mg Oral tab daily [Active]; amlodipine 10 mg tab 1 tab once daily [Active]; sevelamer HCl 800 mg oral tab 3 times per day [Active]; atorvastatin 20 mg oral tab 1 tab once daily [Active]; levothyroxine 25 mcg tab once daily [Active]; - PMHx: 15:35 CVA; Depression; Dialysis; Hyperlipidemia; Hypertension; kidney disease; vg1 - Immunization history:: Client reports receiving the 2nd dose of the Covid vaccine. - Social history:: Smoking status: Patient denies any tobacco usage or history of. Screenin:10 Abuse screen: Denies threats or abuse. Denies injuries from another. Nutritional as6 screening: No deficits noted. Tuberculosis screening: No symptoms or risk factors identified. Fall Risk None identified. Assessment: 16:05 Reassessment: Cesario Jeffery - Son of patient - phone number [phone] - wants update ld1 on patient when we have results. 18:01 Reassessment: Pt's son wants to leave his phone number on file in pt's chart, Maurice Jeffery (pt's son) [phone]. . Vital Signs: 15:15 BP 177 / 77; Pulse 102; Resp 24; Pulse Ox 88% on R/A; Weight 46.27 kg; Height 5 ft. 7 vg1 in. (170.18 cm); 15:36 Pulse Ox 93% on 4 lpm NC; vg1 16:46 BP 197 / 72; Pulse 68; Resp 25; Pulse Ox 96% on 4 lpm NC; ld1 20:30 BP 175 / 64; Pulse 73; Resp 24 S; Pulse Ox 98% on 2 lpm NC; as6 15:15 Body Mass Index 15.98 (46.27 kg, 170.18 cm) vg1 ED Course: 15:09 Patient arrived in ED. as 15:29 Mellisa Gill, LEWIS is Primary Nurse. ld1 15:29 Aj Gomez PA is PHCP. cp 15:30 Crystal Potts MD is Attending Physician. cp 15:35 Triage completed. vg1 15:35 Arm band placed on. vg1 16:18 XRAY Chest (1 view) In Process Unspecified. EDMS 16:26 COVID-19 SARS RT PCR (Document "Date of Onset" if Symptomatic) Sent. ld1 16:26 Strep Sent. ld1 16:26 Influenza Screen (a \\T\\ B) Sent. ld1 18:10 Blood Culture Adult (2) Sent. ld1 18:10 Lactate Sent. ld1 18:10 Procalcitonin Sent. ld1 18:16 Kavin Santamaria is Hospitalizing Provider. cp 21:11 Placed in gown. Bed in low position. Call light in reach. Side rails up X2. Client as6 placed on continuous cardiac and pulse oximetry monitoring. NIBP monitoring applied. Warm blanket given. 21:11 No provider procedures requiring assistance completed. Patient admitted, IV remains in as6 place. Administered Medications: 16:15 Drug: Lasix (furosemide) 40 mg Route: IVP; Site: right forearm; ld1 21:37 Follow up: Response: No adverse reaction as6 16:29 Drug: Xopenex (levalbuterol) (3) 1.25 mg Route: Inhalation; ld1 21:37 Follow up: Response: No adverse reaction as6 18:10 Drug: Rocephin - (cefTRIAXone) 1 grams Route: IVPB; Infused Over: 30 mins; Site: right ld1 forearm; 21:37 Follow up: Response: No adverse reaction; IV Status: Completed infusion; IV Intake: [id number] 18:10 Drug: Zithromax (azithromycin) 500 mg Route: IVPB; Infused Over: 1 hrs; Site: right ld1 forearm; 21:37 Follow up: Response: No adverse reaction; IV Status: Completed infusion; IV Intake: as6 250ml 18:17 Drug: hydrALAZINE 5 mg Route: IVP; Site: right forearm; ld1 21:37 Follow up: Response: No adverse reaction as6 Medication: 21:11 VIS not applicable for this client. as6 Intake: 21:37 IV: 50ml; Total: 50ml. as6 21:37 IV: 250ml; Total: 300ml. as6 Outcome: 18:17 Decision to Hospitalize by Provider. cp 21:11 Admitted to ICU accompanied by tech, via stretcher, room 7, with oxygen, with chart. as6 21:11 Condition: stable 21:11 Instructed on the need for admit. 21:37 Patient left the ED. as6 Signatures: Dispatcher [employer] Rozina Monroy Audri, RN RN aa5 Aj Gomez PA PA cp Garcia, Victoria RN RN vg1 Mlelisa Gill RN RN ld1 Yaakov Hook, RN RN as6
--- NOTE | 2021-10-08 18:18 | EDPHYS ---
Physician Documentation [facility] Name: Isadora Jeffery Age: 85 yrs Sex: Female : 1935 Arrival Date: 10/08/2021 Time: 15:09 Bed 3 Private MD: ED Physician Crystal Potts HPI: 10/08 15:45 This 85 yrs old Female presents to ER via Wheelchair with complaints of Shortness Of cp Breath. 15:45 The patient has shortness of breath at rest. cp 15:45 Onset: The symptoms/episode began/occurred 2 day(s) ago. cp 15:45 Duration: The symptoms are continuous, and are steadily getting worse. Associated signs cp and symptoms: Pertinent positives: non-productive cough, Pertinent negatives: chest pain, diaphoresis, fever, hemoptysis, vomiting. Severity of symptoms: in the emergency department the symptoms are unchanged despite home interventions. Patient reports she did not have dialysis this past Saturday because she did not feel well. Historical: - Allergies: 15:35 Codeine; vg1 - Home Meds: 17:56 furosemide 40 mg oral tab 2 times per day [Active]; metoprolol tartrate 50 mg Oral tab aa5 once daily [Active]; mirtazapine 15 mg Oral tab once daily [Active]; cyanocobalamin (vitamin B-12) 1,000 mcg/mL injection syrg once a month [Active]; prasugrel 10 mg oral tab 1 tab once daily [Active]; aspirin 81 mg Oral tab daily [Active]; amlodipine 10 mg tab 1 tab once daily [Active]; sevelamer HCl 800 mg oral tab 3 times per day [Active]; atorvastatin 20 mg oral tab 1 tab once daily [Active]; levothyroxine 25 mcg tab once daily [Active]; - PMHx: 15:35 CVA; Depression; Dialysis; Hyperlipidemia; Hypertension; kidney disease; vg1 - Immunization history:: Client reports receiving the 2nd dose of the Covid vaccine. - Social history:: Smoking status: Patient denies any tobacco usage or history of. ROS: 15:50 Constitutional: Negative for body aches, chills, fever, poor PO intake. cp 15:50 Eyes: Negative for injury, pain, redness, and discharge. cp 15:50 ENT: Negative for drainage from ear(s), ear pain, sore throat, difficulty swallowing, difficulty handling secretions. 15:50 Cardiovascular: Negative for chest pain, palpitations. 15:50 Respiratory: Positive for cough, "sounds productive", shortness of breath. 15:50 Abdomen/GI: Negative for abdominal pain, vomiting, diarrhea, constipation. 15:50 Back: Negative for pain at rest, pain with movement. 15:50 Neuro: Negative for altered mental status, dizziness, headache, numbness, syncope, weakness. 15:50 All other systems are negative. Exam: 15:46 ECG was reviewed by the Attending Physician. cp 15:55 Constitutional: The patient appears in no acute distress, alert, awake, cp non-diaphoretic, non-toxic, well developed, well nourished. 15:55 Head/Face: Normocephalic, atraumatic. cp 15:55 Eyes: Periorbital structures: appear normal, Conjunctiva: normal, no exudate, no injection, Sclera: no appreciated abnormality, Lids and lashes: appear normal, bilaterally. 15:55 ENT: External ear(s): are unremarkable, Nose: is normal, Mouth: Lips: moist, Oral mucosa: pink and intact, moist, Posterior pharynx: Airway: no evidence of obstruction, patent, Tonsils: are normal in appearance, swelling, is not appreciated, erythema, is not appreciated, exudate, is not appreciated. 15:55 Neck: ROM/movement: is normal, is supple, without pain, no range of motions limitations, no meningismus. 15:55 Chest/axilla: Inspection: normal. 15:55 Cardiovascular: Rate: tachycardic, Rhythm: regular, Edema: ankle edema, that is very mild, JVD: is not appreciated. 15:55 Respiratory: the patient does not display signs of respiratory distress, Respirations: labored breathing, is not present, shallow respirations, that is mild, Breath sounds: rales, that are mild, are heard diffusely, decreased breath sounds, that are mild, throughout, stridor, is not appreciated, wheezing: that is mild, is heard diffusely. 15:55 Abdomen/GI: Inspection: abdomen appears normal, Palpation: abdomen is soft and non-tender, in all quadrants. 15:55 Skin: cellulitis, is not appreciated, no rash present. 15:55 Neuro: Orientation: to person, place \\T\\ time. Mentation: is normal, Motor: moves all fours, strength is normal, Sensation: is normal. Vital Signs: 15:15 BP 177 / 77; Pulse 102; Resp 24; Pulse Ox 88% on R/A; Weight 46.27 kg; Height 5 ft. 7 vg1 in. (170.18 cm); 15:36 Pulse Ox 93% on 4 lpm NC; vg1 16:46 BP 197 / 72; Pulse 68; Resp 25; Pulse Ox 96% on 4 lpm NC; ld1 20:30 BP 175 / 64; Pulse 73; Resp 24 S; Pulse Ox 98% on 2 lpm NC; as6 15:15 Body Mass Index 15.98 (46.27 kg, 170.18 cm) vg1 MDM: 15:34 Patient medically screened. cp 18:05 Physician consultation: Carlos Manuel Porter DO was called at 18:05, was contacted at 18:05, cp regarding consult, patient's condition. 10/08 15:38 Order name: Basic Metabolic Panel; Complete Time: 17:05 10/08 17:05 Interpretation: Normal except: GLUC 140; BUN 79; CRE 8.59; GFR 4; CA 8.4. 10/08 15:38 Order name: CBC with Diff; Complete Time: 17: 10/08 17:05 Interpretation: Normal except: WBC 12.3; RBC 3.38; HGB 9.7; HCT 29.6; RDW 18.1; AKIL% cp 83.9; LYM% 8.5; NEUT A 10.3. 10/08 15:38 Order name: D-Dimer; Complete Time: 17:05 10/08 17:06 Interpretation: D-DIMER 1210; Reviewed. 10/08 15:38 Order name: LFT's; Complete Time: 17:05 10/08 17:07 Interpretation: Normal except: BILID 0.3; ALB 3.1; GLOB 4.1; A/G 0.8. 10/08 15:38 Order name: Magnesium; Complete Time: 17:05 10/08 15:38 Order name: NT PRO-BNP; Complete Time: 17:05 10/08 17:06 Interpretation: Abnormal: NT PRO-BNP [id number]. 10/08 15:38 Order name: PT-INR; Complete Time: 17:05 10/08 15:38 Order name: Troponin HS; Complete Time: 17:05 10/08 15:38 Order name: COVID-19 SARS RT PCR (Document "Date of Onset" if Symptomatic); Complete cp Time: 17:41 10/08 15:38 Order name: Strep; Complete Time: 17:05 10/08 17:10 Interpretation: Reviewed. 10/08 15:38 Order name: Influenza Screen (a \\T\\ B); Complete Time: 17:41 10/08 15:39 Order name: Urine Microscopic Only 10/08 17:02 Order name: Throat Culture EDHI 10/08 17:09 Order name: Procalcitonin 10/08 15:38 Order name: XRAY Chest (1 view); Complete Time: 17:05 10/08 15:38 Order name: EKG; Complete Time: 15:39 10/08 15:38 Order name: Cardiac monitoring; Complete Time: 15:43 10/08 15:38 Order name: EKG - Nurse/Tech; Complete Time: 15:43 10/08 15:38 Order name: O2 Per Protocol; Complete Time: 15:43 10/08 15:38 Order name: O2 Sat Monitoring; Complete Time: 15:43 10/08 17:09 Order name: Lactate 10/08 17:09 Order name: Blood Culture Adult (2) cp EC:46 Rate is 76 beats/min. Rhythm is regular. CA interval is normal. QRS interval is normal. cp QT interval is normal. T waves are Inverted in lead aVR. Interpreted by me. Reviewed by me. Administered Medications: 16:15 Drug: Lasix (furosemide) 40 mg Route: IVP; Site: right forearm; ld1 21:37 Follow up: Response: No adverse reaction as6 16:29 Drug: Xopenex (levalbuterol) (3) 1.25 mg Route: Inhalation; ld1 21:37 Follow up: Response: No adverse reaction as6 18:10 Drug: Rocephin - (cefTRIAXone) 1 grams Route: IVPB; Infused Over: 30 mins; Site: right ld1 forearm; 21:37 Follow up: Response: No adverse reaction; IV Status: Completed infusion; IV Intake: [id number] 18:10 Drug: Zithromax (azithromycin) 500 mg Route: IVPB; Infused Over: 1 hrs; Site: right ld1 forearm; 21:37 Follow up: Response: No adverse reaction; IV Status: Completed infusion; IV Intake: as6 250ml 18:17 Drug: hydrALAZINE 5 mg Route: IVP; Site: right forearm; ld1 21:37 Follow up: Response: No adverse reaction as6 Disposition Summary: 10/08/21 18:17 Hospitalization Ordered Hospitalization Status: Inpatient Admission cp Provider: Kavin Santamaria cp Condition: Stable cp Problem: new cp Symptoms: have improved cp Bed/Room Type: Standard cp Location: Intensive Care Unit(10/08/21 20:47) cg Room Assignment: (10/08/21 20:47) cg Diagnosis - Hypertensive heart and chronic kidney disease with heart failure and with stage 5 cp chronic kidney disease, or end stage renal disease - Hypoxemia cp Discharge Instructions: - Discharge Summary Sheet as Forms: - Family Work Release as - Medication Reconciliation Form cp - SBAR form cp Signatures: Dispatcher [employer] EDPriscila Sandoval RN RN aa5 Kavin Santamaria, FILM EDITOR-C FILM EDITOR-Cla1 Aj Gomez PA PA cp Trinity Chris RN Prema Martin RN RN vg1 Mellisa Gill RN RN ld1 Yaakov Hook RN as6 Corrections: (The following items were deleted from the chart) 18:56 18:17 Telemetry/MedSurg (Inpatient) cp cg 18:56 18:17 cp cg 20:47 18:56 [facility] ER HOLD cg cg 20:47 18:56 ERHOLD- cg cg
[2021-10-08] MEDS ORDERED: HYDRALAZINE HCL 20 MG/ML VIAL ONE (18:21)
--- NOTE | 2021-10-08 19:28 | P.HP ---
Certification for Inpatient Patient admitted to: Inpatient Patient will require the following post-hospital care: None Practitioner: I am a practitioner with admitting privileges, knowledge of patient current condition, hospital course, and medical plan of care. Services: Services provided to patient in accordance with Admission requirements found in Title 42 Section 412.3 of the Code of Federal Regulations Patient History Date of Service: 10/08/21 Reason for admission: Pulmonary edema History of Present Illness: 85-year-old female history of ESRD on HD, chronic diastolic congestive heart failure, hypertension, hypothyroidism, hyperlipidemia, anemia of chronic disease and chronic pain presents to the emergency department for shortness of breath. She was found to be mildly hypoxic on room air with saturations in the high 80s. She reports that she missed dialysis on Saturday as she was feeling "weak" she denies any fever, chills or productive cough. She was evaluated in the emergency department her labs were significant for demonstration of her end- stage renal disease as well as a normocytic anemia similar to her baseline. She had a chest x-ray which revealed CHF/volume overload pattern with left pleural effusion similar to April 2021 study. She was given a dose of IV Lasix in the emergency department nephrology was contacted by ED provider will need to admit for dialysis and further evaluation/management. Allergies codeine Allergy (Severe, Verified 04/02/21 13:57) Nausea/Vomiting Home Medications: Atorvastatin Calcium [Lipitor*] 20 mg PO BEDTIME 04/29/19 Levothyroxine [Synthroid*] 25 mcg PO [id number] 04/29/19 Prasugrel HCl [Effient] 10 mg PO DAILY 04/29/19 Nepro Shake [Nepro*] 237 ml PO BID #60 can 04/03/21 Sevelamer Carbonate [Renvela*] 800 mg PO TIDWM #90 tablet 04/03/21 Amlodipine [Norvasc*] 10 mg PO DAILY #30 tab 04/07/21 Metoprolol Tartrate [Lopressor*] 50 mg PO BID #60 tab 04/07/21 Calcitrol [Rocaltrol*] 0.25 mcg PO DAILY #0 cap 05/03/21 Cyanocobalamin [Vitamin B-12*] 1,000 mcg PO DAILY tab 05/03/21 Docusate [Colace Cap*] 100 mg PO DAILY cap 05/03/21 Furosemide [Lasix*] 40 mg PO BIDL #60 tab 05/03/21 Hydralazine [Apresoline*] 25 mg PO BID tab 05/03/21 Hydrocodone 5/APAP 325 [[place] 5/325*] 1 tab PO Q6H PRN tab 05/03/21 Mirtazapine [Remeron*] 15 mg PO BEDTIME PRN tab 05/03/21 - Past Medical/Surgical History Diabetic: No -: Hypertension -: Hyperlipidemia -: History CVA -: Carotid arterial disease with prior stent -: CAD -: Hypothyroidism -: Chronic diastolic CHF -: Depression with anxiety -: Chronic pain -: End-stage renal disease on hemodialysis -: Carotid stent -: Right partial hip replacement Psychosocial/ Personal History: Patient is a . She lives by herself. - Family History Father -: Stroke Mother -: Diabetes - Social History Smoking Status: Never smoker Alcohol use: No CD- Drugs: No Caffeine use: Yes Place of Residence: Home Review of Systems 10-point ROS is otherwise unremarkable General: Weakness Respiratory: Cough, Dry, Shortness of Breath, SOB with Excertion Physical Examination - Physical Exam General: Alert, In no apparent distress, Oriented x3 HEENT: Atraumatic, PERRLA, Mucous membr. moist/pink, EOMI, Sclerae nonicteric Neck: Supple, 2+ carotid pulse no bruit, No LAD, Without JVD or thyroid abnormality Respiratory: Diminished, Crackles/rales Cardiovascular: Regular rate/rhythm, Normal S1 S2 Capillary refill: <2 Seconds Gastrointestinal: Normal bowel sounds, No tenderness Musculoskeletal: No tenderness Integumentary: No rashes Neurological: Normal speech, Normal strength at 5/5 x4 extr, Normal tone, Normal affect - Studies Laboratory Data (last 24 hrs) 10/08/21 15:54: PT 11.2, INR 1.02 10/08/21 15:54: WBC 12.3 H, Hgb 9.7 L, Hct 29.6 L, Plt Count 245 10/08/21 15:54: Sodium 140, Potassium 4.7, BUN 79 H, Creatinine 8.59 H*, Glucose 140 H, Magnesium 2.2, Total Bilirubin 0.7, AST 19, ALT 16, Alkaline Phosphatase 105 Microbiology Data (last 24 hrs): 10/08/21 16:23 Nasopharnyx Influenza Type A Antigen Screen - Final 10/08/21 16:23 Nasopharnyx Influenza Type B Antigen Screen - Final 10/08/21 16:23 Throat Group A Streptococcus Rapid Screen - Final Assessment and Plan - Plan Assessment: Dyspnea, hypoxia secondary to pulmonary edema/pleural effusions related to acute on chronic diastolic congestive heart failure ESRD on HD MWF Hypertension Hypothyroidism Anemia of chronic disease chronic pain History of CAD Plan: Dyspnea, hypoxia secondary to pulmonary edema/pleural effusions related to acute on chronic diastolic congestive heart failure: Patient will need to be dialyzed, nephrology has been contacted and consulted. Given dose of Lasix in the ER we will continue patient's home dose of Lasix as well she reports she does make some urine. Other home medications have been continued. Appreciate further input from nephrology. ESRD on HD MWF: Nephrology consulted continue as above Hypertension: Home medications continued Hypothyroidism: Home medications continued Anemia of chronic disease: Stable from baseline monitor with labs chronic pain: Continue home pain medications once verified History of CAD: Home medications continued, monitor on telemetry. DVT PPX:Heparin Code status:Full Discharge Plan: Home Plan to discharge in: 48 Hours - Advance Directives Does patient have a Living Will: No Does patient have a Durable POA for Healthcare: Yes - Code Status/Comfort Care Code Status Assessed: Yes (Full code) Critical Care: No Time Spent Managing Pts Care (In Minutes): 70
[2021-10-08] MEDS ORDERED: BENZONATATE 100 MG CAP PO PRN (21:57)
[2021-10-08] MEDS ORDERED: ONDANSETRON 4 MG/2 ML VIAL IV PRN (21:57)
[2021-10-08] MEDS: METOPROLOL TAR 25 MG TAB PO SCH (21:57)
[2021-10-08] MEDS: MIRTAZAPINE 15 MG TAB PO SCH (22:27)
[2021-10-08] MEDS: HEPARIN 5000 UNIT/ML 1 ML VIAL SQ SCH (22:27)
[2021-10-08] MEDS: HYDRALAZINE HCL 25 MG TABLET PO SCH (22:27)
[2021-10-08] MEDS: ATORVASTATIN 20 MG TAB PO SCH (22:27)
[2021-10-09 04:50] LABS: Absolute Lymphocytes (CBC) 1.1 K/uL (0.7-4.9); Hematocrit 23.2 % (36.0-45.0); Lymphocytes % 13.1 % (15.3-44.8); MCV 87.8 fL (80-100); MPV 7.5 fL (7.6-11.3); RBC Red Blood Cell Count 2.64 M/uL (3.86-4.86)
[2021-10-09 05:17] LABS: Albumin 2.5 g/dL (3.4-5.0); Bilirubin Total 0.5 mg/dL (0.2-1.0); Potassium 4.2 mmol/L (3.5-5.1); Protein, Total 5.7 g/dL (6.4-8.2)
[2021-10-09] MEDS: LEVOTHYROXINE SOD 0.025 MG TAB PO SCH (06:05)
[2021-10-09] MEDS: METOPROLOL TAR 25 MG TAB PO SCH ×2 (06:05→16:32)
--- NOTE | 2021-10-09 06:32 | P.PN ---
Date of Service: 10/09/21 Subjective: feeling slightly better on oxygen supplementation ROS: 10 point ROS as noted above, otherwise negative Physical exam GEN: Alert, oriented, NAD CV: Regular rate and rhythm, b/l pedal edema Pulm: mild labored respirations, b/l crackles ABD: Soft, nontender, nondistended Neuro: Normal speech, normal affect Problem List Dyspnea, hypoxia secondary to pulmonary edema/pleural effusions related to acute on chronic diastolic congestive heart failure ESRD on HD MWF Hypertension Hypothyroidism Anemia of chronic disease chronic pain History of CAD HD planned for today, nephrology consulted re-eval afterwards, possible HD tomorrow / discharge continue lasix continue home meds patient with brief episode of chest pain during HD, "felt like indigestion" however patient denies having any indigestion recently EKG with ST depressions trend troponin cardiology consulted DVT PPX:Heparin Code:Full Dispo: home, 1-2 days Time Spent Managing Pts Care (In Minutes): 35
[2021-10-09] MEDS ORDERED: MANNITOL 25% 12.5 GM/50 ML VIAL IV PRN (07:25)
[2021-10-09] MEDS ORDERED: NA CHLORIDE 0.9% 1,000 ML IV PRN (07:25)
[2021-10-09] MEDS ORDERED: EPOETIN ALFA-EPBX 10,000 UNIT/ML VIAL SQ ONE (07:35)
[2021-10-09] MEDS ORDERED: ALBUMIN HUMAN 25% 50 ML IV SCH (08:00)
[2021-10-09] MEDS ORDERED: AMLODIPINE 10 MG TAB PO SCH (09:00)
[2021-10-09] MEDS: PRASUGREL (EFFIENT) 10 MG TAB PO SCH (09:00)
[2021-10-09] MEDS: HYDRALAZINE HCL 25 MG TABLET PO SCH ×2 (09:00→21:20)
[2021-10-09] MEDS: FUROSEMIDE 40 MG TABLET PO SCH (09:00)
[2021-10-09] MEDS: DOCUSATE NA 100 MG CAP PO SCH ×2 (09:00→21:20)
[2021-10-09] MEDS: HEPARIN 5000 UNIT/ML 1 ML VIAL SQ SCH ×2 (10:23→21:39)
--- NOTE | 2021-10-09 10:26 | P.CNS ---
Date of Consult: 10/09/21 Reason for Consult: ESRD Requesting Physician: Tony De Dios Chief Complaint: Pulmonary edema History of Present Illness: 85-year-old female history of ESRD on HD, chronic diastolic congestive heart failure, hypertension, hypothyroidism, hyperlipidemia, anemia of chronic disease and chronic pain presents to the emergency department for shortness of breath. She was found to be mildly hypoxic on room air with saturations in the high 80s. She reports that she missed dialysis on Saturday as she was feeling "weak" she denies any fever, chills or productive cough. She was evaluated in the emergency department her labs were significant for demonstration of her end- stage renal disease as well as a normocytic anemia similar to her baseline. She had a chest x-ray which revealed CHF/volume overload pattern with left pleural effusion similar to April 2021 study. She was given a dose of IV Lasix in the emergency department nephrology was contacted by ED provider will need to admit for dialysis and further evaluation/management. Diagnosis: Hypertensive heart and chronic kidney disease with heart failure and with stage 5 chronic kidney disease, or end stage renal disease;Hypoxemia Presentation: 10/08 15:15 Chief complaint: Patient's son or daughter states: pt did not go to dialysis on Saturday, vg1 pt goes MWF; pt c/o SOB with dry cough and weakness that began on Saturday. Denies ABD pain or Chest pain. 15:15 Coronavirus screen: Vaccine status: Patient reports receiving the 2nd dose of the covid vg1 vaccine. Client denies travel out of the [place] in the last 14 days. Ebola Screen: Patient denies exposure to infectious person. Patient denies travel to an Ebola-affected area in the 21 days before illness onset. Initial Sepsis Screen: Does the patient meet any 2 criteria? RR > 20 per min. HR > 90 bpm. Does the patient have a suspected source of infection? No. Patient's initial sepsis screen is negative. Risk Assessment: Do you want to hurt yourself or someone else? Patient reports no desire to harm self or others. Onset of symptoms was October 06, 2021. 15:15 Method Of Arrival: Wheelchair Allergies codeine Allergy (Severe, Verified 04/02/21 13:57) Nausea/Vomiting Home medications list reviewed: Yes Home Medications: Atorvastatin Calcium [Lipitor*] 20 mg PO BEDTIME 04/29/19 Levothyroxine [Synthroid*] 25 mcg PO [id number] 04/29/19 Prasugrel HCl [Effient] 10 mg PO DAILY 04/29/19 Sevelamer Carbonate [Renvela*] 800 mg PO TIDWM #90 tablet 04/03/21 Furosemide [Lasix*] 40 mg PO BIDL #60 tab 05/03/21 Mirtazapine [Remeron*] 15 mg PO BEDTIME PRN tab 05/03/21 Aspirin [Aspirin EC 81 MG] 81 mg PO DAILY 10/08/21 Cyanocobalamin [Vitamin B-12*] 1,000 mcg IM DIRECTED 10/08/21 Metoprolol Tartrate [Lopressor*] 50 mg PO DAILY 10/08/21 - Past Medical/Surgical History Diabetic: No -: Hypertension -: Hyperlipidemia -: History CVA -: Carotid arterial disease with prior stent -: CAD -: Hypothyroidism -: Chronic diastolic CHF -: Depression with anxiety -: Chronic pain -: ESRD on HD followed by Dr. Pablo -: Carotid stent -: Right partial hip replacement Psychosocial/ Personal History: Patient is a . She lives by herself. - Family History Father Medical History: Stroke Mother Medical History: Hypertension, Diabetes - Social History Smoking Status: Never smoker Alcohol use: No CD- Drugs: No Caffeine use: Yes Place of Residence: Home Review of Systems 10-point ROS is otherwise unremarkable Respiratory: SOB with Excertion Neurological: Weakness Physical Examination Temp Pulse Resp BP Pulse Ox 98.6 F 64 22 H 185/50 H 94 10/09/21 08:00 10/09/21 08:00 10/09/21 08:00 10/09/21 08:00 10/09/21 08:00 General: Oriented x3, Cooperative HEENT: Atraumatic Neck: Supple Respiratory: Diminished Cardiovascular: Regular rate/rhythm, Edema Gastrointestinal: Soft and benign, Non-distended Musculoskeletal: No clubbing, No contractures Integumentary: No rashes, No cyanosis Neurological: Normal speech Laboratory Data (last 24 hrs) 10/08/21 15:54: PT 11.2, INR 1.02 10/08/21 15:54: WBC 12.3 H, Hgb 9.7 L, Hct 29.6 L, Plt Count 245 10/08/21 15:54: Sodium 140, Potassium 4.7, BUN 79 H, Creatinine 8.59 H*, Glucose 140 H, Magnesium 2.2, Total Bilirubin 0.7, AST 19, ALT 16, Alkaline Phosphatase 105 Imagings Data: EXAM DESCRIPTION: RAD - Chest Single View - 10/08/2021 4:16 pm CLINICAL HISTORY: SOB COMPARISON: April 2021 TECHNIQUE: AP portable chest image was obtained 10/08/2021 4:16 pm . FINDINGS: Interstitial and alveolar opacities are present more pronounced in the left base. Left pleural effusion is present. Left lung base findings are similar to the prior study. Lung volumes are low. Heart size is upper normal. Right-sided double-lumen dialysis catheter in place. Scattered alveolar opacities are present generally sparing the right upper lung field. No pneumothorax. No acute bony abnormality seen. No acute aortic findings suspected. IMPRESSION: CHF/volume overload pattern with left pleural effusion. Pattern is similar to the April 2021 study. Conclusions/Impression: ESRD -HD TIW -Seen and examined on HD HTN with CKD/ CHF -Continue Amlodipine -Continue Metoprolol Diastolic CHF, A/C -Low sodium diet -HD with UF -Continue Metoprolol Moderate malnutrition -Start Nepro Anemia in CKD -Retacrit TIW CKD MBD -Start Vitamin D Case reviewed with Dr. De Dios Thank you kindly for the referral
--- NOTE | 2021-10-09 14:37 | EKG ---
Test Date: 2021-10-09 Test Time: 12:35:29 Coach Wirer: MICHELLE MEASUREMENT RESULTS: Intervals: Rate: 81 WV: 154 QRSD: 108 QT: 426 QTc: 494 [place]: P: 90 WV: 154 QRS: -33 T: 26 INTERPRETIVE STATEMENTS: Sinus rhythm with occasional premature ventricular complexes Left axis deviation Incomplete left bundle branch block Left ventricular hypertrophy with repolarization abnormality Prolonged QT Abnormal ECG Compared to ECG 10/08/2021 15:40:29 Ventricular premature complex(es) now present Left bundle-branch block now present Early repolarization now present Prolonged QT interval now present Myocardial infarct finding no longer present Electronically Signed On 10-09-21 14:37:16 CDT by Andi Garces
--- NOTE | 2021-10-09 14:41 | EKG ---
Test Date: 2021-10-08 Test Time: 15:40:29 Nut Threader: EDWIGE MEASUREMENT RESULTS: Intervals: Rate: 76 ID: [id number] QRSD: 100 QT: 412 QTc: 463 [place]: P: 107 ID: [id number] QRS: -33 T: 12 INTERPRETIVE STATEMENTS: Normal sinus rhythm Left axis deviation Minimal voltage criteria for LVH, may be normal variant Anteroseptal infarct, age undetermined Abnormal ECG Compared to ECG 05/02/2021 08:43:21 Left ventricular hypertrophy now present Incomplete right bundle-branch block no longer present Myocardial infarct finding still present Electronically Signed On 10-09-21 14:40:34 CDT by Andi Garces
[2021-10-09] MEDS: CALCITROL 0.25 MCG CAP PO SCH (16:31)
[2021-10-09] MEDS: MULTIVITAMINS,THERAPEUT 1 TAB PO SCH (16:31)
[2021-10-09] MEDS: VITAMIN D 5,000 UNIT CAP PO SCH (16:32)
[2021-10-09] MEDS ORDERED: EPOETIN ALFA 10,000 UNIT/ML VIAL SQ SCH (20:00)
[2021-10-09] MEDS: ATORVASTATIN 20 MG TAB PO SCH (21:20)
[2021-10-09] MEDS: MIRTAZAPINE 15 MG TAB PO SCH (21:21)
[2021-10-10 05:22] LABS: Absolute Lymphocytes (CBC) 1.1 K/uL (0.7-4.9); Hematocrit 23.4 % (36.0-45.0); Lymphocytes % 14.4 % (15.3-44.8); MCV 87.8 fL (80-100); MPV 7.4 fL (7.6-11.3); RBC Red Blood Cell Count 2.66 M/uL (3.86-4.86)
[2021-10-10 06:03] LABS: AST/SGOT 11 U/L (15-37); Albumin 2.3 g/dL (3.4-5.0); Alkaline Phosphatase 80 U/L (45-117); BUN Blood Urea Nitrogen 43 mg/dL (7-18); Bicarbonate 27 mmol/L (21-32); Bilirubin Total 0.4 mg/dL (0.2-1.0); Glomerular Filtration Rate 6 ml/min (=/>90); Glucose Level 110 mg/dL (74-106); Potassium 3.9 mmol/L (3.5-5.1); Protein, Total 5.6 g/dL (6.4-8.2); Sodium Level 140 mmol/L (136-145)
[2021-10-10 06:04] LABS: ALT/SGPT < 10 U/L (12-78)
[2021-10-10] MEDS: METOPROLOL TAR 25 MG TAB PO SCH (06:24)
[2021-10-10] MEDS: LEVOTHYROXINE SOD 0.025 MG TAB PO SCH (06:24)
[2021-10-10 07:09] VITALS: BMI 16.2
[2021-10-10] MEDS: PRASUGREL (EFFIENT) 10 MG TAB PO SCH (08:24)
[2021-10-10] MEDS: DOCUSATE NA 100 MG CAP PO SCH (08:25)
[2021-10-10] MEDS: VITAMIN D 5,000 UNIT CAP PO SCH (08:25)
[2021-10-10] MEDS: CALCITROL 0.25 MCG CAP PO SCH (08:25)
[2021-10-10] MEDS: MULTIVITAMINS,THERAPEUT 1 TAB PO SCH (08:26)
[2021-10-10] MEDS: HEPARIN 5000 UNIT/ML 1 ML VIAL SQ SCH (08:44)
[2021-10-10] MEDS: FUROSEMIDE 40 MG TABLET PO SCH (09:00)
--- NOTE | 2021-10-10 10:26 | PN ---
Date of Progress Note: 10/10/2021 The patient was seen on 10/10/2021 for possible congestive heart failure. Ms. Jeffery is 85. Has a h istory of stroke, depression. She is on hemodialysis. Has a history of hypertension, dyslipidemia. Came in with congestive heart failure after missing dialysis. She was receiving dialysis on the 27t h and has improved. She is allergic to codeine. She takes Norvasc, Effient, metoprolol, Lipitor, hy dralazine, and thyroid at home. She is now on heparin subcu for DVT prophylaxis and has improved. E chocardiogram is still pending. Her blood pressure was 157/58. Creatinine is 6.09. Her D-dimer was 1210. Her hemoglobin was 7.8. Her BNP was 122,000. I think Ms. Jeffery's main problem is renal gerardo lure. She probably has chronic diastolic congestive heart failure as well. We will see what her ech o shows. As far as I am concerned, she can go home on her home medications after the echocardiogram. BLANCA/KANA Voice ID: [id number] Report ID: [id number]
--- NOTE | 2021-10-10 16:28 | P.DS ---
Admission Date: 10/08/21 Discharge Date: 10/10/21 Disposition: DC HOME/HOME HEALTH CARE Discharge Condition: FAIR Reason for Admission: Pulmonary edema Consultations: Nephrology-Dr. Porter. Brief History of Present Illness: 85-year-old female history of ESRD on HD, chronic diastolic congestive heart failure, hypertension, hypothyroidism, hyperlipidemia, anemia of chronic disease and chronic pain presented to the emergency department for shortness of breath. She was found to be mildly hypoxic on room air with saturations in the high 80s. She reported that she missed dialysis on Saturday as she was feeling. Her chest x-ray in the ED revealed CHF/volume overload pattern with left pleural effusion similar to April 2021 study. She was given a dose of IV Lasix in the emergency department, nephrology was contacted and patient admitted for further management. Hospital Course: Diagnosis Acute respiratory failure with hypoxia secondary to pulmonary edema/pleural effusion Acute on chronic diastolic congestive heart failure ESRD on HD MWF Hypertension Hypothyroidism Anemia of chronic disease chronic pain History of CAD Patient admitted to the medical floor, seen by nephrology and hemodialysis ordered. Patient underwent hemodialysis x2. Fluid overload was also treated with IV Lasix. Cardiology was consulted, patient was seen by Dr. Griffin for CHF and chest pain. Troponin x3 was negative. Echocardiogram was done and the result is pending. Patient was weaned off oxygen today. She is currently asymptomatic and deemed stable for discharge. Vital Signs/Physical Exam: Temp Pulse Resp BP Pulse Ox 97.0 F 81 21 H 174/67 H 92 10/10/21 12:00 10/10/21 15:00 10/10/21 15:00 10/10/21 15:00 10/10/21 15:00 General: Alert, In no apparent distress, Oriented x3 HEENT: Mucous membr. moist/pink Neck: Supple, JVD not distended Respiratory: Clear to auscultation bilaterally, Normal air movement Cardiovascular: No edema, Regular rate/rhythm, Normal S1 S2 Gastrointestinal: Normal bowel sounds, Soft and benign, Non-distended Musculoskeletal: No swelling Integumentary: No rashes Neurological: Normal strength at 5/5 x4 extr Laboratory Data at Discharge: WBC 7.5 K/uL (4.3-10.9) 10/10/21 04:55 Hgb 7.9 g/dL (12.0-15.0) L 10/10/21 04:55 Hct 23.4 % (36.0-45.0) L 10/10/21 04:55 Plt Count 208 K/uL (152-406) 10/10/21 04:55 PT 11.2 SECONDS (9.5-12.5) 10/08/21 15:54 INR 1.02 10/08/21 15:54 Sodium 140 mmol/L (136-145) 10/10/21 04:55 Potassium 3.9 mmol/L (3.5-5.1) 10/10/21 04:55 BUN 43 mg/dL (7-18) H D 10/10/21 04:55 Creatinine 6.09 mg/dL (0.55-1.3) H* D 10/10/21 04:55 Glucose 110 mg/dL (74-106) H 10/10/21 04:55 Magnesium 2.2 mg/dL (1.8-2.4) 10/08/21 15:54 Total Bilirubin 0.4 mg/dL (0.2-1.0) 10/10/21 04:55 AST 11 U/L (15-37) L 10/10/21 04:55 ALT < 10 U/L (12-78) L 10/10/21 04:55 Alkaline Phosphatase 80 U/L (45-117) 10/10/21 04:55 Home Medications: Atorvastatin Calcium [Lipitor*] 20 mg PO BEDTIME 04/29/19 Levothyroxine [Synthroid*] 25 mcg PO [id number] 04/29/19 Prasugrel HCl [Effient] 10 mg PO DAILY 04/29/19 Sevelamer Carbonate [Renvela*] 800 mg PO TIDWM #90 tablet 04/03/21 Furosemide [Lasix*] 40 mg PO BIDL #60 tab 05/03/21 Mirtazapine [Remeron*] 15 mg PO BEDTIME PRN tab 05/03/21 Aspirin [Aspirin EC 81 MG] 81 mg PO DAILY 10/08/21 Cyanocobalamin [Vitamin B-12*] 1,000 mcg IM DIRECTED 10/08/21 Calcitrol [Rocaltrol*] 0.5 mcg PO DAILY #60 cap 10/10/21 Cholecalciferol (Vitamin D3) [Vitamin D 5,000 IU Cap*] 5,000 unit PO DAILY #30 cap 10/10/21 Epoetin [Retacrit] 10,000 unit SQ M,W,F vial 10/10/21 Heparin [Heparin 1,000 units/mL *] 6,000 unit IV EVERY HD PRN vial 10/10/21 Mannitol 25% [Mannitol*] 12.5 gm IV EVERY HD PRN vial 10/10/21 Nepro Shake [Nepro*] 237 ml PO BID #60 can 10/10/21 carvediloL [Coreg*] 12.5 mg PO BID 6AM 6PM #60 tab 10/10/21 New Medications: carvediloL [Coreg*] 12.5 mg PO BID 6AM 6PM #60 tab Nepro Shake [Nepro*] 237 ml PO BID #60 can Calcitrol [Rocaltrol*] 0.5 mcg PO DAILY #60 cap Cholecalciferol (Vitamin D3) [Vitamin D 5,000 IU Cap*] 5,000 unit PO DAILY #30 cap Diet: Renal Activity: Ad bogdan Followup: Carlos Manuel Porter DO [ACTIVE - CAN ADMIT] - 1 Week Cuong Pina MD [Primary Care Provider] - Time spent managing pt's care (in minutes): 38
[2021-10-10] MEDS ORDERED: carvediloL 12.5 MG TAB PO SCH (17:00)
[2021-10-10 17:23] VITALS: O2SAT 95
[2021-10-10 17:26] VITALS: BP 140/58; TEMP 98
--- NOTE | 2021-10-10 18:07 | P.PN ---
Date of Service: 10/10/21 Vital Signs Temp Pulse Resp BP Pulse Ox 98.0 F 79 17 140/58 L 94 10/10/21 16:00 10/10/21 17:00 10/10/21 17:00 10/10/21 17:00 10/10/21 17:00 Medications Atorvastatin Calcium (Atorvastatin 20 Mg Tab) 20 mg PO BEDTIME [facility] Last Admin: 10/09/21 21:20 Dose: 20 mg Documented by: Benzonatate (Benzonatate 100 Mg Cap) 100 mg PO TID PRN PRN Reason: COUGH Last Admin: 10/08/21 22:27 Dose: 100 mg Documented by: Calcitriol (Calcitrol 0.25 Mcg Cap) 0.5 mcg PO DAILY [facility] Last Admin: 10/10/21 08:25 Dose: 0.5 mcg Documented by: Carvedilol (Carvedilol 12.5 Mg Tab) 12.5 mg PO BID 6AM 6PM [facility] Last Admin: 10/10/21 16:29 Dose: 12.5 mg Documented by: Cholecalciferol (Vitamin D 5,000 Unit Cap) 5,000 unit PO DAILY [facility] Last Admin: 10/10/21 08:25 Dose: 5,000 unit Documented by: Docusate Sodium (Docusate Na 100 Mg Cap) 100 mg PO BID [facility] Last Admin: 10/10/21 08:25 Dose: 100 mg Documented by: Enteral Nutritional Formula (Nepro Shake 237 Ml Can) 237 ml PO BID [facility] Epoetin Odin (Epoetin Odin 10,000 Unit/Ml Vial) 10,000 unit SQ M,W,F [facility] Last Admin: 10/09/21 20:00 Dose: Not Given Documented by: Furosemide (Furosemide 40 Mg Tablet) 40 mg PO DAILY [facility] Last Admin: 10/10/21 09:00 Dose: Not Given Documented by: Heparin Sodium (Porcine) (Heparin 5000 Unit/Ml 1 Ml Vial) 5,000 unit SQ Q12HR [facility] Last Admin: 10/10/21 08:44 Dose: 5,000 unit Documented by: Heparin Sodium (Porcine) (Heparin 1,000 Unit/Ml Vial) 6,000 unit IV EVERY HD PRN PRN Reason: AFTER EACH Albumin Human (Albumin 25%) 50 mls @ 100 mls/hr IV EVERY HD [facility] Levothyroxine Sodium (Levothyroxine Sod 0.025 Mg Tab) 0.025 mg PO DAILYAC [facility] Last Admin: 10/10/21 06:24 Dose: 0.025 mg Documented by: Mannitol (Mannitol 25% 12.5 Gm/50 Ml Vial) 12.5 gm IV EVERY HD PRN PRN Reason: Titrate to SBP (MUST DEFINE) Mirtazapine (Mirtazapine 15 Mg Tab) 15 mg PO BEDTIME [facility] Last Admin: 10/09/21 21:21 Dose: 15 mg Documented by: Ondansetron HCl (Ondansetron 4 Mg/2 Ml Vial) 4 mg IV Q6HP PRN PRN Reason: NAUSEA / VOMITING Prasugrel (Prasugrel (Effient) 10 Mg Tab) 10 mg PO DAILY [facility] Last Admin: 10/10/21 08:24 Dose: 10 mg Documented by: Sodium Chloride (Flush Normal Saline 10 Ml) 10 ml IV BID [facility] Last Admin: 10/10/21 08:27 Dose: 10 ml Documented by: Vitamin B Complex/Vit C/Folic Acid (Multivitamins,Therapeut 1 Tab) 1 tab PO DAILY [facility] Last Admin: 10/10/21 08:26 Dose: 1 tab Documented by: Microbiology Results 10/08/21 16:23 Throat Culture & Sensitivity - Final NORMAL UPPER RESPIRATORY BASILIA GROWN. 10/08/21 18:04 Blood - Blood Aerobic Blood Culture - Preliminary No growth in 24 hours. 10/08/21 18:04 Blood - Blood Anaerobic Blood Culture - Preliminary No growth in 24 hours. 10/08/21 17:58 Blood - Blood Aerobic Blood Culture - Preliminary No growth in 24 hours. 10/08/21 17:58 Blood - Blood Anaerobic Blood Culture - Preliminary No growth in 24 hours. 10/08/21 16:23 Nasopharnyx Influenza Type A Antigen Screen - Final 10/08/21 16:23 Nasopharnyx Influenza Type B Antigen Screen - Final 10/08/21 16:23 Throat Group A Streptococcus Rapid Screen - Final Assessment/ Plan: Nephrology No dyspnea No chest pain Feeling better today No acute events overnight Vitals, medications, blood work and imaging reviewed in the chart. General: Oriented x3, Cooperative HEENT: Atraumatic Neck: Supple Respiratory: Normal resp effort Cardiovascular: Regular rate/rhythm, Edema trace Gastrointestinal: Soft and benign, Non-distended Musculoskeletal: No clubbing, No contractures Integumentary: No rashes, No cyanosis Neurological: Normal speech Laboratory Data (last 24 hrs) 10/08/21 15:54: PT 11.2, INR 1.02 10/08/21 15:54: WBC 12.3 H, Hgb 9.7 L, Hct 29.6 L, Plt Count 245 10/08/21 15:54: Sodium 140, Potassium 4.7, BUN 79 H, Creatinine 8.59 H*, Glucose 140 H, Magnesium 2.2, Total Bilirubin 0.7, AST 19, ALT 16, Alkaline Phosphatase 105 Imagings Data: EXAM DESCRIPTION: RAD - Chest Single View - 10/08/2021 4:16 pm CLINICAL HISTORY: SOB COMPARISON: April 2021 TECHNIQUE: AP portable chest image was obtained 10/08/2021 4:16 pm . FINDINGS: Interstitial and alveolar opacities are present more pronounced in the left base. Left pleural effusion is present. Left lung base findings are similar to the prior study. Lung volumes are low. Heart size is upper normal. Right-sided double-lumen dialysis catheter in place. Scattered alveolar opacities are present generally sparing the right upper lung field. No pneumothorax. No acute bony abnormality seen. No acute aortic findings suspected. IMPRESSION: CHF/volume overload pattern with left pleural effusion. Pattern is similar to the April 2021 study. Conclusions/Impression: ESRD -HD TIW -Acute HD today HTN with CKD/ CHF -Change Metoprol to Coreg 12.5mg BID -Discontinue Hydralazine and Amlodipine Diastolic CHF, A/C -Low sodium diet -HD with UF -Start Coreg 12.5mg BID Moderate malnutrition -Continue Nepro Anemia in CKD -Retacrit TIW CKD MBD -Continue Vitamin D Case reviewed with Dr. Godinez
[2021-10-10] MEDS ORDERED: NEPRO SHAKE 237 ML CAN PO SCH (21:00)
--- NOTE | 2021-10-11 07:38 | ECHO ---
HEIGHT: 5 ft 7 in WEIGHT: 104 lb 0 oz DATE OF STUDY: 10/10/[address]: Donn Griffin MD 2-DIMENSIONAL: YES M.MODE: YES DOPPLER: YES COLOR FLOW: YES TDS: NO PORTABLE: YES DEFINITY: NO BUBBLE STUDY: NO DIAGNOSIS: CONGESTIVE HEART FAILURE CARDIAC HISTORY: CATHERIZATION: NO SURGERY: NO PROSTHETIC VALVE: NO PACEMAKER: NO MEASUREMENTS (cm) DIASTOLIC (NORMALS) SYSTOLIC (NORMALS) IVSd 1.1 (0.6-1.2) LA Diam 2.9 (1.9-4.0) LVEF 58% LVIDd 4.0 (3.5-5.7) LVIDs 2.8 (2.0-3.5) %FS 30% LVPWd 1.2 (0.6-1.2) Ao Diam 2.4 (2.0-3.7) 2 DIMENSIONAL ASSESSMENT: RIGHT ATRIUM: NORMAL LEFT ATRIUM: NORMAL RIGHT VENTRICLE: NORMAL LEFT VENTRICLE: NORMAL TRICUSPID VALVE: NORMAL MITRAL VALVE: MITRAL ANNULAR CALCIFICATION PULMONIC VALVE: NORMAL AORTIC VALVE: NORMAL PERICARDIAL EFFUSION: NONE AORTIC ROOT: NORMAL LEFT VENTRICULAR WALL MOTION: NORMAL DOPPLER/COLOR FLOW: MILD MITRAL AND TRICUSPID REGURGITATION. COMMENTS: NORMAL LEFT VENTRICULAR SIZE AND FUNCTION. NO WALL MOTION ABNORMALITY. MILD MITRAL AND TRICUSPID REGURGITATION. MITRAL ANNULAR CALCIFICATION. TECHNOLOGIST: Brittni REID
== END 2021-10-10 18:25 | disposition home health service (06) | DRG 291 ==
LOC: ER 15:07 → ERHOLD 18:46 → 3RD-ICU 20:51
PROVIDERS: ADMIT Hospitalist; ATTEND Hospitalist
PROC: 5A1D70Z Performance of Urinary Filtration, Intermittent, Less than 6 Hours Per Day (ICD-10-PCS; principal; 2021-10-09)
PROC: 5A1D70Z Performance of Urinary Filtration, Intermittent, Less than 6 Hours Per Day (ICD-10-PCS; 2021-10-10)
DX: I13.2 Hypertensive heart and chronic kidney disease with heart failure and with stage 5 chronic kidney disease, or end stage renal disease (principal); I50.33 Acute on chronic diastolic (congestive) heart failure; N18.6 End stage renal disease; J96.01 Acute respiratory failure with hypoxia; E44.0 Moderate protein-calorie malnutrition; Z68.1 Body mass index [BMI] 19.9 or less, adult; E78.5 Hyperlipidemia, unspecified; F41.8 Other specified anxiety disorders; E03.9 Hypothyroidism, unspecified; I25.10 Atherosclerotic heart disease of native coronary artery without angina pectoris; G89.29 Other chronic pain; Z86.73 Personal history of transient ischemic attack (TIA), and cerebral infarction without residual deficits; D63.1 Anemia in chronic kidney disease; Z96.641 Presence of right artificial hip joint; Z99.2 Dependence on renal dialysis; Z20.822 Contact with and (suspected) exposure to COVID-19
CPT/HCPCS: 36415; 71045; 80048; 80053; 80076; 83605; 83735; 83880; 84145; 84484; 85025; 85379; 85610; 86317; 86706; 87040; 87070; 87081; 87340; 87804; 90935; 93005; 93306; 96365; 96366; 96368; 96375; 99285; J0360; J0456; J1644; J1940; J2250; J7030; J7050; Q5106; U0003

== ENCOUNTER 2021-10-31 16:59 | Inpatient (IN) | payer OTHER ==
[2021-10-31] MEDS ORDERED: MORPHINE 4 MG/ML SYR ONE (17:23)
[2021-10-31] MEDS ORDERED: ONDANSETRON 4 MG/2 ML VIAL ONE (17:28)
[2021-10-31 17:36] LABS: Absolute Lymphocytes (CBC) 0.4 K/uL (0.7-4.9); Hematocrit 32.4 % (36.0-45.0); Lymphocytes % 7.9 % (15.3-44.8); MPV 8.2 fL (7.6-11.3); RBC Red Blood Cell Count 3.48 M/uL (3.86-4.86)
[2021-10-31] MEDS ORDERED: HYDROMORPHONE HCL 0.5 MG/0.5 ML INJ ONE ×3 (17:51→21:28)
[2021-10-31 18:02] LABS: Potassium 3.6 mmol/L (3.5-5.1)
--- NOTE | 2021-10-31 18:20 | RAD REPORT ---
EXAM DESCRIPTION: RAD - Knee Left 3 View - 10/31/2021 6:14 pm CLINICAL HISTORY: PAIN COMPARISON: No comparisons FINDINGS: No acute fracture. No malalignment. No significant focal degenerative changes. IMPRESSION: No acute osseous abnormality involving the left knee.
--- NOTE | 2021-10-31 18:20 | RAD REPORT ---
EXAM DESCRIPTION: RAD - Hip Left 2 View - 10/31/2021 6:14 pm CLINICAL HISTORY: PAIN COMPARISON: No comparisons FINDINGS/IMPRESSION: Left-sided intertrochanteric hip fracture which is mildly displaced superiorly and laterally. No dislocation. Peripheral vascular calcifications.
--- NOTE | 2021-10-31 18:40 | ER ---
Nurse's Notes [facility] Name: Isadora Jeffery Age: 86 yrs Sex: Female : 1935 Arrival Date: 10/31/2021 Time: 17:07 Bed 24 Private MD: Diagnosis: Displaced intertrochanteric fracture of left femur, initial encounter for closed fracture;Fall on same level, unspecified;End stage renal disease;Essential (primary) hypertension Presentation: 10/31 17:28 Chief complaint: Patient states: Pt reports going out to the road to get trash can - ld1 fell into the ditch and now C/O left hip/femur/knee pain. Coronavirus screen: At this time, the client does not indicate any symptoms associated with coronavirus-19. Ebola Screen: No symptoms or risks identified at this time. Initial Sepsis Screen: Does the patient meet any 2 criteria? No. Patient's initial sepsis screen is negative. Does the patient have a suspected source of infection? No. Patient's initial sepsis screen is negative. Risk Assessment: Do you want to hurt yourself or someone else? Patient reports no desire to harm self or others. Onset of symptoms was October 31, 2021. 17:28 Method Of Arrival: EMS: [facility] ld1 17:28 Acuity: ROMELIA 3 ld1 Triage Assessment: 17:37 General: Appears in no apparent distress. comfortable, Behavior is cooperative, ld1 appropriate for age, anxious, crying, fussy. Pain: Complains of pain in left hip and left leg Pain does not radiate. Pain currently is 10 out of 10 on a pain scale. Quality of pain is described as sharp, shooting, throbbing. EENT: No signs and/or symptoms were reported regarding the EENT system. Neuro: Level of Consciousness is awake, alert, obeys commands, Oriented to person, place, time, situation, Appropriate for age. Cardiovascular: Capillary refill < 3 seconds Patient's skin is warm and dry. Rhythm is regular. Respiratory: Airway is patent Respiratory effort is even, unlabored. GI: Abdomen is flat, non-distended. : No signs and/or symptoms were reported regarding the genitourinary system. Derm: No signs and/or symptoms reported regarding the dermatologic system. Musculoskeletal: Reports pain in pelvis and left leg. Historical: - Allergies: 17:37 Codeine; ld1 - Home Meds: 18:32 furosemide 40 mg Oral tab 1 tab 2 times per day [Active]; irbesartan 150 mg oral tab 1 ld1 tab once daily [Active]; aspirin 81 mg Oral cap 1 cap once daily [Active]; levothyroxine 25 mcg cap 1 cap once daily [Active]; prasugrel 10 mg oral tab 1 tab once daily [Active]; carvedilol 12.5 mg oral tab 1 tab 2 times per day [Active]; atorvastatin 20 mg oral tab 1 tab once daily [Active]; mirtazapine 15 mg Oral TbDi 1 tab once daily [Active]; - PMHx: 17:37 Depression; CVA; Dialysis; Hyperlipidemia; Hypertension; kidney disease; ld1 - PSHx: 17:37 Total abdominal hysterectomy; Cholecystectomy; Appendectomy; ld1 - Immunization history:: Adult Immunizations up to date, Client reports receiving the 2nd dose of the Covid vaccine. - Social history:: Smoking status: Patient denies any tobacco usage or history of. Patient/guardian denies using alcohol. Screenin:39 Abuse screen: Denies threats or abuse. Denies injuries from another. Nutritional ld1 screening: No deficits noted. Tuberculosis screening: No symptoms or risk factors identified. Fall Risk Fall in past 12 months (25 points). Ambulatory Aid- None/Bed Rest/Nurse Assist (0 pts). Gait- Weak (10 pts.). Total Boyd Fall Scale indicates High Risk Score (45 or more points). Assessment: 17:39 Reassessment: See triage assessment. ld1 19:44 Reassessment: Cesario Jeffery - Pt son - first to notify - [phone]. ld1 Vital Signs: 17:28 BP 197 / 74; Pulse 79; Resp 24; Temp 97.3(O); Pulse Ox 100% on R/A; Weight 45.36 kg; ld1 Height 5 ft. 3 in. (160.02 cm); Pain 10/10; 19:34 BP 187 / 57; Pulse 85; Resp 17; Pulse Ox 100% on R/A; ld1 17:28 Body Mass Index 17.71 (45.36 kg, 160.02 cm) ld1 ED Course: 17:07 Patient arrived in ED. em1 17:07 Saqib Gunter DO is Attending Physician. ms3 17:13 Mellisa Gill, RN is Primary Nurse. ld1 17:37 Triage completed. ld1 17:37 Arm band placed on right wrist. ld1 17:39 Patient has correct armband on for positive identification. Placed in gown. Bed in low ld1 position. Call light in reach. Side rails up X2. nurse monitoring on. Pulse ox on. NIBP on. Door closed. Noise minimized. Warm blanket given. 17:39 No provider procedures requiring assistance completed. Gaffney cath inserted, using ld1 sterile technique, [address], balloon inflated, to gravity drainage. Maintain EMS IV. Dressing intact. Good blood return noted. Site clean \T\ dry. Gauge \T\ site: 20G LFA. 18:16 Hip Left 2 View XRAY In Process Unspecified. EDMS 18:16 Knee Left 3 View XRAY In Process Unspecified. EDMS 18:38 Tony De Dios MD is Hospitalizing Provider. ms3 Administered Medications: 17:27 Drug: morphine 4 mg Route: IVP; Infused Over: 4 mins; Site: left forearm; ld1 17:28 Drug: Zofran (Ondansetron) 4 mg Route: IVP; Site: left forearm; ld1 17:49 Drug: Dilaudid (HYDROmorphone) 0.5 mg Route: IVP; Site: left forearm; ld1 19:27 Drug: Dilaudid (HYDROmorphone) 0.5 mg Route: IVP; Site: left forearm; ld1 20:18 Drug: carvedilol 12.5 mg Route: PO; ld1 Medication: 17:39 VIS not applicable for this client. ld1 Outcome: 18:39 Decision to Hospitalize by Provider. ms3 22:20 Admitted to Med/surg accompanied by nurse, via stretcher, room 219, with chart, Report mw called to Toño Ervin RN 22:21 Patient left the ED. jluis Signatures: Dispatcher [employer] EDMS Tomasa Ordonez RN RN mw Martinez, Eric em1 Saqib Gunter DO DO ms3 Mellisa Gill, LEWIS SAUCEDO ld1
--- NOTE | 2021-10-31 18:40 | EDPHYS ---
Physician Documentation [facility] Name: Isadora Jeffery Age: 86 yrs Sex: Female : 1935 Arrival Date: 10/31/2021 Time: 17:07 Bed 24 Private MD: ED Physician Saqib Gunter HPI: 10/31 17:38 This 86 yrs old Female presents to ER via EMS with complaints of fall. ms3 17:38 Details of fall: The patient fell from an upright position, while standing. Onset: The ms3 symptoms/episode began/occurred 30 minute(s) ago. Associated injuries: The patient sustained left hip, painful injury, left knee, painful injury. Historical: - Allergies: 17:37 Codeine; ld1 - Home Meds: 18:32 furosemide 40 mg Oral tab 1 tab 2 times per day [Active]; irbesartan 150 mg oral tab 1 ld1 tab once daily [Active]; aspirin 81 mg Oral cap 1 cap once daily [Active]; levothyroxine 25 mcg cap 1 cap once daily [Active]; prasugrel 10 mg oral tab 1 tab once daily [Active]; carvedilol 12.5 mg oral tab 1 tab 2 times per day [Active]; atorvastatin 20 mg oral tab 1 tab once daily [Active]; mirtazapine 15 mg Oral TbDi 1 tab once daily [Active]; - PMHx: 17:37 Depression; CVA; Dialysis; Hyperlipidemia; Hypertension; kidney disease; ld1 - PSHx: 17:37 Total abdominal hysterectomy; Cholecystectomy; Appendectomy; ld1 - Immunization history:: Adult Immunizations up to date, Client reports receiving the 2nd dose of the Covid vaccine. - Social history:: Smoking status: Patient denies any tobacco usage or history of. Patient/guardian denies using alcohol. ROS: 17:38 Constitutional: Negative for fever, and chills. Neck: Negative for injury, pain, and ms3 swelling, Cardiovascular: Negative for chest pain, and palpitations. Respiratory: Negative for shortness of breath, cough, wheezing, and pleuritic chest pain, Abdomen/GI: Negative for abdominal pain, nausea, vomiting, diarrhea, and constipation, Skin: Negative for injury, rash, and discoloration. 17:38 MS/extremity: Positive for pain, of the left hip, left knee. Exam: 17:38 Constitutional: This is a well developed, well nourished patient who is awake, alert, ms3 and in no acute distress. Head/Face: Normocephalic, atraumatic. Neck: Trachea midline, no cervical lymphadenopathy. Supple, full range of motion without nuchal rigidity, or vertebral point tenderness. No Meningismus. Chest/axilla: Normal chest wall appearance and motion. Nontender with no deformity. Cardiovascular: Regular rate and rhythm with a normal S1 and S2. No gallops, murmurs, or rubs. Normal PMI, no JVD. No pulse deficits. Respiratory: Lungs have equal breath sounds bilaterally, clear to auscultation and percussion. No rales, rhonchi or wheezes noted. No increased work of breathing, no retractions or nasal flaring. Abdomen/GI: Soft, non-tender, with normal bowel sounds. No distension or tympany. No guarding or rebound. No evidence of tenderness throughout. Skin: Warm, dry with normal turgor. Normal color with no rashes, no lesions, and no evidence of cellulitis. Psych: Awake, alert, with orientation to person, place and time. Behavior, mood, and affect are within normal limits. 17:38 Musculoskeletal/extremity: Extremities: noted in the left hip: decreased ROM, pain, tenderness, noted in the left knee: pain, tenderness. Vital Signs: 17:28 BP 197 / 74; Pulse 79; Resp 24; Temp 97.3(O); Pulse Ox 100% on R/A; Weight 45.36 kg; ld1 Height 5 ft. 3 in. (160.02 cm); Pain 10/10; 19:34 BP 187 / 57; Pulse 85; Resp 17; Pulse Ox 100% on R/A; ld1 17:28 Body Mass Index 17.71 (45.36 kg, 160.02 cm) ld1 MDM: 17:07 Patient medically screened. ms3 17:38 Differential diagnosis: contusion, fracture, sprain, strain. ms3 18:28 Physician consultation: Iftikhar Stanford MD was called at 18:28, was contacted at ms3 18:37, and will see patient in inpatient room, Okay to continue Asa and Prasugrel. Do not make NPO.. 18:51 Data reviewed: vital signs, nurses notes, lab test result(s), radiologic studies, and ms3 as a result, I will admit patient. Counseling: I had a detailed discussion with the patient and/or guardian regarding: the historical points, exam findings, and any diagnostic results supporting the discharge/admit diagnosis, lab results, radiology results, the need for further work-up and treatment in the hospital. ED course: Discussed case with Kavin Call NP and he accepts patient on behalf of Dr De Dios.. 10/31 17:09 Order name: Basic Metabolic Panel; Complete Time: 18:18 ms3 10/31 17:09 Order name: CBC with Diff; Complete Time: 18:18 ms3 10/31 17:09 Order name: Hip Left 2 View XRAY; Complete Time: 18:26 ms3 10/31 17:09 Order name: Type And Screen; Complete Time: 19:54 ms3 10/31 19:50 Order name: SARS-COV-2 Antigen Rapid mw2 10/31 20:47 Order name: SARS-COV-2 Antigen Rapid EDMS 10/31 17:09 Order name: Knee Left 3 View XRAY; Complete Time: 18:26 ms3 10/31 17:09 Order name: Labs collected and sent; Complete Time: 17:28 ms3 10/31 17:41 Order name: Gaffney; Complete Time: 17:41 ld1 Administered Medications: 17:27 Drug: morphine 4 mg Route: IVP; Infused Over: 4 mins; Site: left forearm; ld1 17:28 Drug: Zofran (Ondansetron) 4 mg Route: IVP; Site: left forearm; ld1 17:49 Drug: Dilaudid (HYDROmorphone) 0.5 mg Route: IVP; Site: left forearm; ld1 19:27 Drug: Dilaudid (HYDROmorphone) 0.5 mg Route: IVP; Site: left forearm; ld1 20:18 Drug: carvedilol 12.5 mg Route: PO; ld1 Disposition Summary: 10/31/21 18:39 Hospitalization Ordered Hospitalization Status: Inpatient Admission ms3 Provider: Tony De Dios ms3 Location: Telemetry/MedSur (Inpatient) ms3 Condition: Stable ms3 Problem: new ms3 Symptoms: are unchanged ms3 Bed/Room Type: Standard ms3 Room Assignment: 219(10/31/21 21:41) tw5 Diagnosis - Displaced intertrochanteric fracture of left femur, initial encounter for closed ms3 fracture - Fall on same level, unspecified ms3 - End stage renal disease ms3 - Essential (primary) hypertension ms3 Discharge Instructions: - Discharge Summary Sheet em1 Forms: - Family Work Release em1 - Medication Reconciliation Form ms3 - SBAR form ms3 Signatures: Dispatcher [employer] EDMS Kavin Santamaria, LEIF-C KEYBOARDING CLERK-Cla1 Saqib Gunter DO DO ms3 Mellisa Gill RN RN ld1 Kristin Schultz tw5 Corrections: (The following items were deleted from the chart) 18:38 18:28 Physician consultation: Iftikhar Stanford MD was called at 18:28, ms3 ms3 21:41 18:39 ms3 tw5
--- NOTE | 2021-10-31 19:56 | P.HP ---
Certification for Inpatient Patient admitted to: Inpatient With expected LOS: >2 Midnights Patient will require the following post-hospital care: None Practitioner: I am a practitioner with admitting privileges, knowledge of patient current condition, hospital course, and medical plan of care. Services: Services provided to patient in accordance with Admission requirements found in Title 42 Section 412.3 of the Code of Federal Regulations Patient History Date of Service: 10/31/21 Reason for admission: Left hip fracture History of Present Illness: 86-year-old female with history of ESRD on HD MWF, CVA, hypertension, hyperlipidemia presents the emergency department after mechanical fall with injury to her left hip. She had an xray of her left hip performed which revealed a Left-sided intertrochanteric hip fracture. Ortho was consulted and wishes for pt to be admitted to hospitalist service, will need cardiac clearance, neprhology eval. Allergies codeine Allergy (Severe, Verified 04/02/21 13:57) Nausea/Vomiting Home Medications: Atorvastatin Calcium [Lipitor*] 20 mg PO BEDTIME 04/29/19 Levothyroxine [Synthroid*] 25 mcg PO [id number] 04/29/19 Prasugrel HCl [Effient] 10 mg PO DAILY 04/29/19 Sevelamer Carbonate [Renvela*] 800 mg PO TIDWM #90 tablet 04/03/21 Furosemide [Lasix*] 40 mg PO BIDL #60 tab 05/03/21 Mirtazapine [Remeron*] 15 mg PO BEDTIME PRN tab 05/03/21 Aspirin [Aspirin EC 81 MG] 81 mg PO DAILY 10/08/21 Cyanocobalamin [Vitamin B-12*] 1,000 mcg IM DIRECTED 10/08/21 Calcitrol [Rocaltrol*] 0.5 mcg PO DAILY #60 cap 10/10/21 Cholecalciferol (Vitamin D3) [Vitamin D 5,000 IU Cap*] 5,000 unit PO DAILY #30 cap 10/10/21 Epoetin [Retacrit] 10,000 unit SQ M,W,F vial 10/10/21 Heparin [Heparin 1,000 units/mL *] 6,000 unit IV EVERY HD PRN vial 10/10/21 Mannitol 25% [Mannitol*] 12.5 gm IV EVERY HD PRN vial 10/10/21 Nepro Shake [Nepro*] 237 ml PO BID #60 can 10/10/21 carvediloL [Coreg*] 12.5 mg PO BID 6AM 6PM #60 tab 10/10/21 - Past Medical/Surgical History Diabetic: No -: Hypertension -: Hyperlipidemia -: History CVA -: Carotid arterial disease with prior stent -: CAD -: Hypothyroidism -: Chronic diastolic CHF -: Depression with anxiety -: Chronic pain -: ESRD on HD followed by Dr. Pablo -: Carotid stent -: Right partial hip replacement Psychosocial/ Personal History: Patient is a . She lives by herself. - Family History Father -: Stroke Mother -: Hypertension, Diabetes - Social History Smoking Status: Never smoker Alcohol use: No CD- Drugs: No Caffeine use: Yes Place of Residence: Home Review of Systems 10-point ROS is otherwise unremarkable Musculoskeletal: Other (left hip pain), As per HPI Physical Examination - Physical Exam General: Alert, In no apparent distress, Oriented x3 HEENT: Atraumatic, PERRLA, Mucous membr. moist/pink, EOMI, Sclerae nonicteric Neck: Supple, 2+ carotid pulse no bruit, No LAD, Without JVD or thyroid abnormality Respiratory: Clear to auscultation bilaterally, Normal air movement Cardiovascular: Regular rate/rhythm, Normal S1 S2 Gastrointestinal: Normal bowel sounds, No tenderness Musculoskeletal: No tenderness, Other (LLE shortened and externally rotated. ) Integumentary: No rashes Neurological: Normal speech, Normal tone, Normal affect Urinary: Gaffney catheter (placed in ED) - Studies Laboratory Data (last 24 hrs) 10/31/21 17:25: WBC 5.4, Hgb 10.4 L, Hct 32.4 L, Plt Count 181 10/31/21 17:25: Sodium 139, Potassium 3.6, BUN 38 H, Creatinine 5.38 H*, Glucose 109 H Assessment and Plan - Plan Assessment: Left intertrochanteric femur fracture ESRD on HD Chronic diastolic congestive heart failure Hypertension CVA/PAD Hyperlipidemia Plan: Left intertrochanteric femur fracture: Patient will need cardiac clearance, cardiology consulted. Orthopedic consulted not likely to have surgery tomorrow. As needed pain medications, Gaffney catheter was placed in the emergency department. Patient lives at home by herself will likely require rehab at discharge. ESRD on HD: Nephrology consulted, did complete dialysis yesterday does not appear overloaded. Chronic diastolic congestive heart failure: Continue home medications, volume management with assistance from dialysis. Cardiology also consulted for surgical clearance. Hypertension: Continue home medications CVA/PAD: Continue home medications including Effient, aspirin. Okay to be give per Ortho. Hyperlipidemia: Continue home medications. DVT PPX: Heparin Code status: Full Discharge Plan: Home Plan to discharge in: Greater than 2 days - Advance Directives Does patient have a Living Will: No Does patient have a Durable POA for Healthcare: No - Code Status/Comfort Care Code Status Assessed: Yes (Full code) Critical Care: No Time Spent Managing Pts Care (In Minutes): 70
[2021-10-31] MEDS ORDERED: carvediloL 6.25 MG TAB ONE (20:18)
[2021-10-31 20:47] LABS: SARS-CoV-2 Antigen Rapid Res Negative (Negative)
[2021-10-31] MEDS: HEPARIN 5000 UNIT/ML 1 ML VIAL SQ SCH (21:10)
[2021-10-31] MEDS ORDERED: HEPARIN 5000 UNIT/ML 1 ML VIAL ONE (21:27)
[2021-10-31] MEDS ORDERED: HYDRALAZINE HCL 20 MG/ML VIAL ONE (21:27)
[2021-10-31] MEDS: HYDRALAZINE HCL 20 MG/ML VIAL IV PRN (21:31)
[2021-10-31] MEDS: HYDROMORPHONE HCL 0.5 MG/0.5 ML INJ IV PRN (21:31)
[2021-10-31 23:26] VITALS: BMI 17.6
[2021-11-01] MEDS: HYDROMORPHONE HCL 0.5 MG/0.5 ML INJ IV PRN ×3 (01:01→10:36)
[2021-11-01 05:51] LABS: Absolute Lymphocytes (CBC) 0.5 K/uL (0.7-4.9); Hematocrit 28.4 % (36.0-45.0); Lymphocytes % 9.2 % (15.3-44.8); MCV 93.8 fL (80-100); MPV 8.3 fL (7.6-11.3); RBC Red Blood Cell Count 3.03 M/uL (3.86-4.86)
[2021-11-01 06:15] LABS: Potassium 3.7 mmol/L (3.5-5.1)
[2021-11-01] MEDS ORDERED: LEVOTHYROXINE SOD 0.025 MG TAB PO ONE (06:30)
[2021-11-01] MEDS: LEVOTHYROXINE SOD 0.025 MG TAB PO SCH (06:30)
--- NOTE | 2021-11-01 06:39 | P.PN ---
Date of Service: 11/01/21 Subjective: no acute events overnight NPO for OR this afternoon ROS: 10 point ROS as noted above, otherwise negative Physical exam GEN: Alert, oriented, NAD HEENT: Normal conjunctiva, sclera anicteric CV: Regular rate and rhythm, no edema Pulm: non-labored respirations ABD: Soft, nontender, nondistended MSK: LLE shortened/externall rotated, intact distal sensation Neuro: Normal speech, normal affect Problem List Left intertrochanteric femur fracture ESRD on HD Chronic diastolic congestive heart failure Hypertension CVA/PAD Hyperlipidemia discussed with cardiology - no further workup planned pre-operatively. Normal echo a few months ago. patient optimized for surgery Ortho aware, plans for surgery this afternoon patient is npo nephrology updated, plan for HD this morning prior to surgery As needed pain medications, Gaffney catheter was placed in the emergency department. Patient lives at home by herself will likely require rehab at discharge. resume chronic home meds as appropriate - monitor BP Code: full Dispo: home vs rehab, 1-2 days pending post-op recovery / op findings Time Spent Managing Pts Care (In Minutes): 35
[2021-11-01] MEDS ORDERED: PNEUMOCOCCAL VACCINE 0.5 ML IMVAC ONE (08:00)
[2021-11-01] MEDS: PRASUGREL (EFFIENT) 10 MG TAB PO SCH (09:00)
[2021-11-01] MEDS: ASPIRIN EC 81 MG TAB PO SCH (09:00)
[2021-11-01] MEDS: HEPARIN 5000 UNIT/ML 1 ML VIAL SQ SCH ×2 (09:00→20:27)
--- NOTE | 2021-11-01 11:32 | P.CNS ---
Date of Consult: 11/01/21 Reason for Consult: ESRD Requesting Physician: Tony De Dios Chief Complaint: Left hip fracture History of Present Illness: 86-year-old female with history of ESRD on HD MWF at the [facility] unit presented to the emergency department after mechanical fall with injury to her left hip. She reports falling in a ditch while taking her trash can out. She had an xray of her left hip performed which revealed a Left- sided intertrochanteric hip fracture. Ortho was consulted and there are plans for surgery later today. Pt was seen on HD earlier where she cited mod to severe pain at the left hip site. Allergies codeine Allergy (Severe, Verified 10/31/21 23:06) Nausea/Vomiting Home Medications: Atorvastatin Calcium [Lipitor*] 20 mg PO BEDTIME 04/29/19 Levothyroxine [Synthroid*] 25 mcg PO [id number] 04/29/19 Prasugrel HCl [Effient] 10 mg PO DAILY 04/29/19 Sevelamer Carbonate [Renvela*] 800 mg PO TIDWM #90 tablet 04/03/21 Furosemide [Lasix*] 40 mg PO BIDL #60 tab 05/03/21 Mirtazapine [Remeron*] 15 mg PO BEDTIME PRN tab 05/03/21 Aspirin [Aspirin EC 81 MG] 81 mg PO DAILY 10/08/21 Cyanocobalamin [Vitamin B-12*] 1,000 mcg IM DIRECTED 10/08/21 Calcitrol [Rocaltrol*] 0.5 mcg PO DAILY #60 cap 10/10/21 Cholecalciferol (Vitamin D3) [Vitamin D 5,000 IU Cap*] 5,000 unit PO DAILY #30 cap 10/10/21 Epoetin [Retacrit] 10,000 unit SQ M,W,F vial 10/10/21 Heparin [Heparin 1,000 units/mL *] 6,000 unit IV EVERY HD PRN vial 10/10/21 Mannitol 25% [Mannitol*] 12.5 gm IV EVERY HD PRN vial 10/10/21 Nepro Shake [Nepro*] 237 ml PO BID #60 can 10/10/21 carvediloL [Coreg*] 12.5 mg PO BID 6AM 6PM #60 tab 10/10/21 - Past Medical/Surgical History Diabetic: No -: Hypertension -: Hyperlipidemia -: History CVA -: Carotid arterial disease with prior stent -: CAD -: Hypothyroidism -: Chronic diastolic CHF -: Depression with anxiety -: Chronic pain -: ESRD on HD followed by Dr. Pablo -: Carotid stent -: Right partial hip replacement Psychosocial/ Personal History: Patient is a . She lives by herself. - Family History Father Medical History: Stroke Mother Medical History: Hypertension, Diabetes - Social History Smoking Status: Never smoker Alcohol use: No CD- Drugs: No Caffeine use: Yes Place of Residence: Home Review of Systems General: Unremarkable Eyes: Unremarkable ENT: Unremarkable Respiratory: Unremarkable Cardiovascular: Unremarkable Gastrointestinal: Unremarkable Musculoskeletal: Other (Lt hip pain) Integumentary: Unremarkable Neurological: Unremarkable Physical Examination Temp Pulse Resp BP Pulse Ox 99.3 F 72 16 145/57 H 96 11/01/21 08:00 11/01/21 08:00 11/01/21 10:36 11/01/21 08:00 11/01/21 10:36 General: Alert, Mild distress HEENT: Atraumatic, Normocephalic, EOMI Neck: Supple Respiratory: Clear to auscultation bilaterally, Normal air movement Cardiovascular: No edema, Normal pulses, Regular rate/rhythm Gastrointestinal: Normal bowel sounds, Soft and benign, Non-distended Musculoskeletal: Other (Reduced Lt leg ROM due to pain, fracture) Integumentary: No rashes Neurological: Normal speech, Normal affect Laboratory Data (last 24 hrs) 10/31/21 17:25: WBC 5.4, Hgb 10.4 L, Hct 32.4 L, Plt Count 181 10/31/21 17:25: Sodium 139, Potassium 3.6, BUN 38 H, Creatinine 5.38 H*, Glucose 109 H Conclusions/Impression: 1. ESRD 2. Chronic HTN 3. Left hip intertrochanteric fracture 4. Anemia 2nd to CKD, other 5. Hypocalcemia 2nd to hyperparathyroidism, CKD -Will plan to dialyze this AM prior to surgery this AM, metab profile ok -Avoid hypotension on or post HD. -Pain management per primary team or Ortho -Will place on Ca carbonate + Vit D, will check PTH levels as OP and resume active Vit D as indicated. -Will f/u post surgical blood counts, transfusions per typical thresholds, cont NICKI + IV iron per protocols to target Hb of 10-11 Santos Escalona MD, [facility]
--- NOTE | 2021-11-01 12:40 | EKG ---
Test Date: 2021-11-01 Test Time: 09:25:53 Dimethylaniline Sulfator Operator: MICHELLE MEASUREMENT RESULTS: Intervals: Rate: 75 NH: 150 QRSD: 106 QT: 430 QTc: 480 [place]: P: 85 NH: 150 QRS: -1 T: -7 INTERPRETIVE STATEMENTS: Normal sinus rhythm with sinus arrhythmia Septal infarct, age undetermined Abnormal ECG Compared to ECG 10/09/2021 12:35:29 Myocardial infarct finding now present Ventricular premature complex(es) no longer present Left-axis deviation no longer present Left bundle-branch block no longer present Left ventricular hypertrophy no longer present Early repolarization no longer present Prolonged QT interval no longer present Electronically Signed On 11-01-21 12:38:53 CDT by Donn Griffin
[2021-11-01] MEDS ORDERED: FENTANYL CITR 100 MCG/2 ML ONE (15:38)
[2021-11-01] MEDS ORDERED: LIDOCAINE 2% MPF 5 ML VIAL ONE (15:38)
[2021-11-01] MEDS ORDERED: propofoL 200 MG/20 ML VIAL IV ONE (15:38)
[2021-11-01] MEDS ORDERED: Ringers Lactate 0 ML IV ONE (15:38)
[2021-11-01] MEDS ORDERED: ROCURONIUM 50 MG/5 ML VIAL IV ONE (15:39)
[2021-11-01] MEDS ORDERED: Phenylephrine HCl 10 MG/ML 1 ML VIAL ONE (15:39)
[2021-11-01] MEDS ORDERED: NA CHLORIDE 0.9% 500 ML ONE (15:40)
[2021-11-01] MEDS ORDERED: CEFAZOLIN SODIUM 1 GM/VIAL ONE (16:01)
[2021-11-01] MEDS ORDERED: TRANEXAMIC ACID 1,000 MG/10 ML VIAL IV ONE (16:02)
--- NOTE | 2021-11-01 16:26 | CON ---
Date of Consultation: 11/01/2021 Reason For Consultation: Cardiac clearance for left hip surgery. History Of Present Illness: Ms. Jeffery is an 86. She is a dialysis patient, has had a history of CV A, depression, hypertension, and dyslipidemia. Has had a carotid endarterectomy on the left side. C cheko in with no cardiac symptoms, left hip fracture. Denies nausea, vomiting, diaphoresis, PND, ortho pnea, pedal edema, palpitations, or syncope. Past Medical History: As stated above. Allergies: SHE IS ALLERGIC TO CODEINE. Review of Systems: Negative. Social History: Negative. Family History: Negative. Medications: Include aspirin, Lipitor, Lasix, Synthroid, Effient, Coreg, and Renvela. Physical Examination: Vital signs: Showed hypertension with blood pressure 197/74. She was in a sinus rhythm, afebrile. HEENT: Negative. Neck: Supple with no bruit. Chest: Clear. Cardiac exam: Revealed a regular rhythm and rate with S4 gallops. Abdomen: Benign. Extremities: Revealed no clubbing, cyanosis, or edema. Diagnostic Data: Her EKG showed LVH. Chest x-ray is negative. Hemoglobin is 9.2, creatinine is 5.3 8. Echocardiogram in September of 2021 was normal. Impression And Plan: 1.End-stage renal disease, on hemodialysis. 2.History of cerebrovascular accident, status post left carotid endarterectomy. She is stable. 3.Depression. 4.Hypertension, poorly controlled. 5.Dyslipidemia. 6.Need for cardiac clearance. Ms. Jeffery's EKG showed left ventricular hypertrophy. She has no car diac symptoms. Echocardiogram was normal in September of 2021. She does not have congestive heart failur e by examination. I think she is cleared to undergo her hip surgery. [facility] the need [facility]. I think we need to try to control her blood pressure. It is better. She is already on hydralazine in addition to her home medication. Certainly, Effient can be held for her s urgery. I will continue to follow her. NB/MODL Voice ID: [id number] Report ID: [id number]
[2021-11-01] MEDS ORDERED: dexAMETHasone 10 MG/ML VIAL ONE (16:49)
[2021-11-01] MEDS ORDERED: ONDANSETRON 4 MG/2 ML VIAL ONE (16:49)
[2021-11-01] MEDS ORDERED: GLYCOPYRROLATE 0.2 MG/ML SYR ONE (16:57)
[2021-11-01] MEDS ORDERED: NEOSTIGMINE 1 MG/ML -10 ML VIAL ONE (16:58)
--- NOTE | 2021-11-01 17:08 | P.BOP ---
Preoperative diagnosis: left intertrochanteric fracture Postoperative diagnosis: same Primary procedure: SUZANNE left hip Estimated blood loss: 20 ccs Anesthesia: General Transferred to: Recovery Room Condition: Good
--- NOTE | 2021-11-01 17:56 | RAD REPORT ---
EXAM DESCRIPTION: - Hip in OR Left 2 View - 11/01/2021 5:25 pm CLINICAL HISTORY: HIP RODDING COMPARISON: No comparisons FINDINGS/IMPRESSION: Three intraoperative fluoroscopic images were submitted showing placement of an intramedullary julianne in the left femur. Cumulative dose: 3.2 mGy Fluoro time: 0.7 minutes
--- NOTE | 2021-11-01 18:05 | RAD REPORT ---
EXAM DESCRIPTION: RAD - Fluoroscopy <1 Hour - 11/01/2021 5:25 pm CLINICAL HISTORY: HIP RODDING = COMPARISON: Fluoroscopy <1 Hour dated 04/06/2021; Hip in OR Left 2 View dated 11/01/2021 FINDINGS/IMPRESSION: Three intraoperative fluoroscopic images were submitted showing placement of an intramedullary julianne in the left femur. Cumulative dose: 3.2 mGy Fluoro time: 0.7 minutes
[2021-11-01] MEDS: CALCIUM CARB 500MG/VIT D 200 IU TAB PO SCH (20:28)
--- NOTE | 2021-11-02 03:08 | OP ---
Date of Procedure: 11/01/2021 Surgeon: Iftikhar Stanford MD Preoperative Diagnosis: Left hip intertrochanteric fracture. Postoperative Diagnosis: Left hip intertrochanteric fracture. Procedure: Left hip closed reduction with intramedullary julianne fixation using the Biomet Affixus nail. Estimated Blood Loss: 20 cc. Complications: There were no complications. Specimen: No pathology specimen sent. Indications: Ms. Jeffery is an 86-year-old female who unfortunately fell injuring her left lower extr emity. She was seen in the Emergency Department where she was ruled out for other injuries; however, she did demonstrate a displaced left femoral neck fracture. Risks, benefits, and alternatives of di fferent methods of treating this were discussed with the patient. She states she understands things as presented and wishes to proceed. Description Of Procedure: The patient was taken to the operating room and placed in supine position. General anesthesia was obtained by the staff. Following this, she was then transferred onto the fr acture table and she was then appropriately positioned with all bony prominences being checked. A re duction maneuver using the fracture table is performed and the C-arm was brought in, which demonstrat es essentially anatomic reduction of the intertrochanteric fracture. After this, the left lower extr emity was then prepped and draped in usual sterile fashion for procedure. A small incision was made superior to the greater trochanter. This allowed us for placement of the starting awl. The starting position was then established and the guide pin was then placed. It was found to glide easily past the fracture site. After this, the handicrafts teacher was then used to ream down past the lesser trochanter . This was followed by placement of a size 9 x 135 nail. This was targeted and the lag screw was th en placed without difficulty. The appropriate depth and position were checked under biplanar C-arm r adiography. This was followed by placement of the rotation screw to appropriate depth and location. After this, attention was then turned distally as the dynamic interlocking screw was placed without difficulty. After this, the fascia was closed in a watertight fashion with the skin being closed wit h Vicryl followed by liss. She was then placed in Aquacel dressing and taken to recovery room. SE/MODL Voice ID: [id number] Report ID: [id number]
[2021-11-02 03:53] LABS: Absolute Lymphocytes (CBC) 0.2 K/uL (0.7-4.9); Hematocrit 24.2 % (36.0-45.0); Lymphocytes % 4.4 % (15.3-44.8); MCV 91.5 fL (80-100); MPV 8.4 fL (7.6-11.3); RBC Red Blood Cell Count 2.65 M/uL (3.86-4.86)
[2021-11-02 03:59] LABS: Potassium 3.9 mmol/L (3.5-5.1)
--- NOTE | 2021-11-02 04:11 | CON ---
Date of Consultation: 11/01/2021 History Of Present Illness: I am consulted to see her for left hip pain. This is the first time I a m seeing this patient to my knowledge. She is an 86-year-old female who unfortunately has end-stage renal disease as well as other medical considerations. She unfortunately fell injuring her left lowe r extremity. She was seen and examined in the Emergency Department where x-rays demonstrated a proba ble intertrochanteric hip fracture. She was then admitted to the hospital under the care of Dr. Sherrill rhodes who is the hospitalist and I am consulted to see her. Physical Examination: All of her long bones and joints are palpated without pain or crepitation with the exception of pain with her left hip with any movement or manipulation. Imaging: Review of x-rays demonstrate a slightly displaced intertrochanteric fracture on the left. Assessment: An 86-year-old female with multiple medical problems, now with a left intertrochanteric fracture. Plan: I have spoken with Dr. De Dios. Dr. De Dios says he has spoken with her incident response consultant and says she does not need any further workup. She is currently undergoing dialysis, but the plan is for closed reduction with intramedullary julianne fixation this evening. She has been n.p.o. Risks, benefits, and a lternatives of procedure have been discussed with the patient and she says she understands things as presented and wishes to proceed. All of her questions were answered. /KANA Voice ID: [id number] Report ID: [id number]
[2021-11-02 04:40] LABS: Blood Morphology Comment NOT SEEN (NOT SEEN); Platelet Estimate ADEQ
[2021-11-02] MEDS: LEVOTHYROXINE SOD 0.025 MG TAB PO SCH (06:02)
--- NOTE | 2021-11-02 06:18 | P.PN ---
Date of Service: 11/02/21 Subjective: feels ok at rest, with hip pain with movement no nausea/vomiting, +flatus, tolerating diet wants to go home if possible, has not worked with PT yet ROS: 10 point ROS as noted above, otherwise negative Physical exam GEN: Alert, oriented, NAD HEENT: Normal conjunctiva, sclera anicteric CV: Regular rate and rhythm, no edema Pulm: non-labored respirations ABD: Soft, nontender, nondistended MSK: LLE distal sensation intact, surgical dressing in place, no swelling Neuro: Normal speech, normal affect Problem List Left intertrochanteric femur fracture s/p ORIF ESRD on HD Chronic diastolic congestive heart failure Hypertension CVA/PAD Hyperlipidemia discussed with cardiology - no further workup planned pre-operatively. Normal echo a few months ago. patient optimized for surgery s/p ORIF 11/01 diet advanced PT consulted pain medication as needed [facility] pt ESRD on HD nephrology consulted for HD restart home meds as appropriate DVT prophylaxis patient states she wants to go home if possible, discussed TWB status, but she feels she will be able to go home - lives alone, would only have someone to check on her intermittently, not / most likely will need to go to SNF vs rehab, will see PT evbrendon today Code: full Dispo: SNF vs rehab, 1-2 days pending post-op recovery Time Spent Managing Pts Care (In Minutes): 35
[2021-11-02] MEDS: CALCIUM CARB 500MG/VIT D 200 IU TAB PO SCH ×2 (08:33→20:29)
[2021-11-02] MEDS: PRASUGREL (EFFIENT) 10 MG TAB PO SCH (08:33)
[2021-11-02] MEDS: ASPIRIN EC 81 MG TAB PO SCH (08:33)
[2021-11-02] MEDS: HEPARIN 5000 UNIT/ML 1 ML VIAL SQ SCH ×2 (08:33→20:29)
[2021-11-02] MEDS: NEPRO SHAKE 237 ML CAN PO SCH (08:34)
[2021-11-02] MEDS: carvediloL 6.25 MG TAB PO SCH ×2 (09:34→20:29)
[2021-11-02] MEDS: CALCITROL 0.25 MCG CAP PO SCH (09:35)
--- NOTE | 2021-11-02 10:40 | P.PN ---
Date of Service: 11/09/21 Nephrology note: Pt tolerated surgery well, denies pain at hip site but reports throat soreness from ET. Physical Examination Vitals reviewed in EMR General: Alert, NAD HEENT: Atraumatic, Normocephalic, EOMI Neck: Supple Respiratory: Clear to auscultation bilaterally, Normal air movement Cardiovascular: No edema, Normal pulses, Regular rate/rhythm Gastrointestinal: Normal bowel sounds, Soft and benign, Non-distended Musculoskeletal: Other (Reduced Lt leg ROM due to pain, fracture), Lt leg lateral thigh surgical incision covered with dressing Gaffney presenttttttttttt Integumentary: No rashes Neurological: Normal speech, Normal affect Laboratory Data (last 24 hrs) Reviewed in EMR 1. ESRD 2. Chronic HTN 3. Left hip intertrochanteric fracture 4. Anemia 2nd to CKD, other 5. Hypocalcemia 2nd to hyperparathyroidism, CKD -Dialyzed yesterday, metab profile acceptable -BP acceptable, restart home med Coreg at lower dose with holding parameters -Pain management per primary team or Ortho -Will place on Ca carbonate + Vit D, will resume active Vit D as indicated. -Will f/u post surgical blood counts, transfusions per typical thresholds, Hb is a bit lower as expected but > 8 g/dl, cont NICKI + IV iron per protocols as OP to target Hb of 10-11 Santos Escalona MD, [facility]
[2021-11-02] MEDS: HYDROMORPHONE HCL 0.5 MG/0.5 ML INJ IV PRN ×2 (11:43→15:57)
[2021-11-02] MEDS: PHENOL 1.4% ORAL SPRAY 180ML MM PRN ×3 (13:07→21:03)
--- OUTSIDE RECORDS SUMMARY | 2021-11-02 14:31 | XMS REPORT | Continuity of Care Document ---
:1935 Author Organization [facility] t Address Counts include 234 beds at the [facility] [place] [address] Care Team Providers Name Role Phone ANENE Primary Care Physician Unavailable RENETTA Attending Clinician Unavailable ABHILASH Attending Clinician Unavailable Umu WILL, L Attending Clinician MARINO DYER Attending Clinician Unavailable KHADAR Attending Clinician Unavailable KHADAR Admitting Clinician Unavailable Payers Payer Name Policy Type Policy Number Effective Date Expiration Date S mihir MEDICARE PART A [id number] 2000 \T\ B 00:00:00 MEDICARE-PART B 5 [id number] 2018 00:00:00 Problems Condition Condition Condition Status Onset Resolution Last Treating Co mments Source Name Details Category Date Date Treatment Clinician Date HTN HTN Disease Active [facility] (hypertens 3-04 Klaudia kes ion) ion) 00:00: Medical 00 [place] HLD HLD Disease Active [facility] (hyperlipi [...] Univers fracture fracture 0-10 ity of 00:00: [address] Branch Femur Femur Disease Active 2015-04 Univers fracture, fracture, 0-08 ity of right right 00:00: [place] 00 [facility] Branch Scoliosis Scoliosis Problem Active Com mon of lumbar of lumbar Spir it region due region due - [facility] Klaudia kes ve disease ve disease Me dical of spine of spine Center in adult in adult Presence Presence Problem Active Commo n of right of right Spirit artificial artificial - [facility]I hip joint hip joint [facility] Right Right Problem Active Common sciatic sciatic Spirit nerve pain nerve pain - [facility] Thoracogen Thoracogen Problem Active C ommon ic ic Spirit scoliosis scoliosis - CH I of of thoracic thoracic [facility] Pain of Pain of Problem Active Common right hip right hip Spir it joint pain joint pain - [facility] Allergies, Adverse Reactions, Alerts Allergy Allergy Status Severity Reaction(s) Onset Inactive Treating Comm ents Source Name Type Date Date Clinician Codeine Propensi Active [facility] adverse 00:00: Medical reaction 00 [facility] CODEINE DRUG Active Hallucinates 2015-04 Uni vers INGREDI 0-08 ity of 00:00: [place] 00 [facility] Branch Codeine Propensi Active Hallucinatio 2015-04 U nivers ty to ns 0-08 ity of adverse 00:00: [place] reaction 00 [facility] Branch codeine Adverse Active Info Not Common Reaction Available Spiri t - [facility] Social History Social Habit Start Date Stop Date Quantity Comments Source History [facility] Alcohol Comment Medical C enter History [facility] 2018-06-16 2018-06-[address] [facility] Alcohol Frequency 00:00:00 00:00:00 Medical Center History [facility] 2018-06-16 2018-06-16 [address] [facility] Alcohol Std Drinks 00:00:00 00:00:00 Medica l Center History [facility] 2018-06-16 2018-06-16 [address] [facility] Alcohol Binge 00:00:00 00:00:[address] Tobacco use and 2018-06-15 2018-06-[address] Klaudia kes exposure 00:00:00 00:00:00 Medical Center Alcohol intake 2017-02-28 2017-02-28 [facility] 00:00:00 00:00:00 Medical Branch Sex Ass[birth year] At [birth year] [facility] 00:00:00 00:00:00 Medical Branch Smoking Status Start Date Stop Date Source Never smoker [facility] Medical Branch Medications Ordered Filled Start Stop Current Ordering Indication Dosage Frequency Signature Comments Components Source Medication Medication Date Date Medication? Clinician (SIG) Name Name Tylenol 8 Tylenol 8 Yes Tucker 2 tablets Common Hour Hour 7-25 [place] as needed Spirit 00:00: - [facility] metoprolol Yes 50mg QD Take [address] (LOPRESSOR) 3-05 by mouth Luke s 25 MG 20:29: daily. Medical tablet 27 [place] prasugr Yes 10mg QD Take [address] (EFFIENT) 3-05 by mouth Lukes 10 mg Tab 20:29: daily. Medica l tablet 27 [place] levothyroxi Yes 25ug Take [address] ne 3-05 mcg by Lukes (SYNTHROID, 20:29: mouth Medic al LEVOTHROID) 27 Every Center 25 MCG morning on tablet an empty stomach. losartan Yes 100mg QD Take [address] (COZAAR) 3-05 mg by Lukes 100 MG 20:29: mouth Medical tablet 27 daily. [place] metoprolol Yes 50mg QD Take [address] (LOPRESSOR) 3-05 by mouth Luke s 25 MG 20:29: daily. Medical tablet 27 [place] prasugr Yes 10mg QD Take [address] (EFFIENT) 3-05 by mouth Lukes 10 mg Tab 20:29: daily. Medica l tablet 27 [place] levothyroxi Yes 25ug Take [address] ne 3-05 mcg by Lukes (SYNTHROID, 20:29: mouth Medic al LEVOTHROID) 27 Every Center 25 MCG morning on tablet an empty stomach. losartan Yes 100mg QD Take [address] (COZAAR) 3-05 mg by Lukes 100 MG 20:29: mouth Medical tablet 27 daily. [place] metoprolol Yes 50mg QD Take [address] (LOPRESSOR) 3-05 by mouth Luke s 25 MG 20:29: daily. Medical tablet 27 [place] prasugr Yes 10mg QD Take [address] (EFFIENT) 3-05 by mouth Lukes 10 mg Tab 20:29: daily. Medica l tablet 27 [place] levothyroxi 0 Yes 25ug Take [address] ne 3-05 mcg by Lukes (SYNTHROID, 20:29: mouth Medic al LEVOTHROID) 27 Every Center 25 MCG morning on tablet an empty stomach. losartan 2019-0 Yes 100mg QD Take [address] (COZAAR) 3-05 mg by Lukes 100 MG 20:29: mouth Medical tablet 27 daily. [place] metoprolol 2018-0 Yes 50mg QD Take [address] (LOPRESSOR) 3-05 by mouth Luke s 25 MG 20:29: daily. Medical tablet 27 [place] prasugr 0 Yes 10mg QD Take [address] (EFFIENT) 3-05 by mouth Lukes 10 mg Tab 20:29: daily. Medica l tablet 27 [place] levothyrox Yes 25ug Take [address] ne 3-05 mcg by Lukes (SYNTHROID, 20:29: mouth Medic al LEVOTHROID) 27 Every Center 25 MCG morning on tablet an empty stomach. losartan 2018-0 Yes 100mg QD Take [address] (COZAAR) 3-05 mg by Lukes 100 MG 20:29: mouth Medical tablet 27 daily. [place] metoprolol 0 Yes 50mg QD Take [address] (LOPRESSOR) 3-05 by mouth Luke s 25 MG 20:29: daily. Medical tablet 27 [place] prasugr 0 Yes 10mg QD Take [address] (EFFIENT) 3-05 by mouth Lukes 10 mg Tab 20:29: daily. Medica l tablet 27 [place] levothyrox 0 Yes 25ug Take [address] ne 3-05 mcg by Lukes (SYNTHROID, 20:29: mouth Medic al LEVOTHROID) 27 Every Center 25 MCG morning on tablet an empty stomach. losartan 2018-0 Yes 100mg QD Take [address] (COZAAR) 3-05 mg by Lukes 100 MG 20:29: mouth Medical tablet 27 daily. [place] metoprolol 2019-0 Yes 50mg QD Take [address] (LOPRESSOR) 3-05 by mouth Luke s 25 MG 20:29: daily. Medical tablet 27 [place] prasugr 0 Yes 10mg QD Take [address] (EFFIENT) 3-05 by mouth Lukes 10 mg Tab 20:29: daily. Medica l tablet 27 [place] levothyroxi 0 Yes 25ug Take [address] ne 3-05 mcg by Lukes (SYNTHROID, 20:29: mouth Medic al LEVOTHROID) 27 Every Center 25 MCG morning on tablet an empty stomach. losartan 2018-0 Yes 100mg QD Take [address] (COZAAR) 3-05 mg by Lukes 100 MG 20:29: mouth Medical tablet 27 daily. [place] metoprolol 2018-0 Yes 50mg QD Take [address] (LOPRESSOR) 3-05 by mouth Luke s 25 MG 20:29: daily. Medical tablet 27 [place] prasugr 0 Yes 10mg QD Take [address] (EFFIENT) 3-05 by mouth Lukes 10 mg Tab 20:29: daily. Medica l tablet 27 [place] levothyrox 0 Yes 25ug Take [address] ne 3-05 mcg by Lukes (SYNTHROID, 20:29: mouth Medic al LEVOTHROID) 27 Every Center 25 MCG morning on tablet an empty stomach. losartan 2018- Yes 100mg QD Take [address] (COZAAR) 3-05 mg by Lukes 100 MG 20:29: mouth Medical tablet 27 daily. [place] metoprolol 0 Yes 50mg QD Take [address] (LOPRESSOR) 3-05 by mouth Luke s 25 MG 20:29: daily. Medical tablet 27 [place] prasugr 0 Yes 10mg QD Take [address] (EFFIENT) 3-05 by mouth Lukes 10 mg Tab 20:29: daily. Medica l tablet 27 [place] levothyrox 0 Yes 25ug Take [address] ne 3-05 mcg by Lukes (SYNTHROID, 20:29: mouth Medic al LEVOTHROID) 27 Every Center 25 MCG morning on tablet an empty stomach. losartan 2018-0 Yes 100mg QD Take [address] (COZAAR) 3-05 mg by Lukes 100 MG 20:29: mouth Medical tablet 27 daily. [place] metoprolol 2019-0 Yes 50mg QD Take [address] (LOPRESSOR) 3-05 by mouth Luke s 25 MG 20:29: daily. Medical tablet 27 [place] prasugr 0 Yes 10mg QD Take [address] (EFFIENT) 3-05 by mouth Lukes 10 mg Tab 20:29: daily. Medica l tablet 27 Center levothyroxi Yes 25ug Take [address] [...] mg 00:00: EVERY [place] tablet 00 SATURDAY [facility] Branch Alendronate Alendronate Yes Tucker not Common Sodium Sodium Hilliard defined [facility] Metoprolol Metoprolol Yes Tucker not C ommon Succinate Succinate [place]illiard defined [facility] Atorvastati Atorvastati Yes Tucker not Common n Calcium n Calcium [place]illiard defined [facility] Losartan Losartan Yes Tucker not Commo n Potassium Potassium [place]illiard defined [facility] Prasugrel Prasugrel Yes Tucker not Com mon HCl HCl [place]illiard defined [facility] Aspirin Aspirin Yes Tucker not Common Hilliard defined [facility] Levothyroxi Levothyroxi Yes Tucker not Common ne Sodium ne Sodium [place]illiard defined [facility] Procedures This patient has no known procedures. [...] Lukes Test 00:00:00 (1 of 1 - [facility] [id number] PCV13) [code = PNEUMOCOCCAL 65+ YRS (1 of 1 - [id number]_Sxwdrhi PCV13)] Future Scheduled 2000-10-14 PNEUMOCOCCAL 65+ Y[facility] Test 00:00:00 (1 of 1 - Medical Center [id number] PCV13) [code = PNEUMOCOCCAL 65+ YRS (1 of 1 - [id number] PCV13)] Future Scheduled 2000-10-14 PNEUMOCOCCAL 65+ [facility] Test 00:00:00 (1 of 1 [facility] [id number]_Tkdzqze PCV13) [code = PNEUMOCOCCAL 65+ YRS (1 of 1 - [id number]_Srqtttr PCV13)] Future Scheduled 2000-10-14 PNEUMOCOCCAL 65+ [facility] Test 00:00:00 ([address] [facility] [id number]_Pardykt PCV13) [code = PNEUMOCOCCAL 65+ YRS (1 of 1 - [id number]_Jvsqwky PCV13)] Future Scheduled 2000-10-14 PNEUMOCOCCAL 65+ Y[facility] Test 00:00:00 ([address] [place] [address] QFCO72_Cdhxvxw PCV13) [code = PNEUMOCOCCAL 65+ YRS (1 of 1 - [id number]_Dtugrvg PCV13)] Future Scheduled 2000-10-14 PNEUMOCOCCAL 65+ Y[facility] Test 00:00:00 ([address] [place] [address] KOUD70_Ghknmcu PCV13) [code = PNEUMOCOCCAL 65+ YRS (1 of 1 - UDSJ81_Zaqfymt PCV13)] Future Scheduled 2000-10-14 PNEUMOCOCCAL 65+ Y[facility] Test 00:00:00 ([address] [place] [address] HMQH39_Olvsafh PCV13) [code = PNEUMOCOCCAL 65+ YRS (1 of 1 - BTDM36_Kdmseij PCV13)] Future Scheduled 2000-10-14 PNEUMOCOCCAL 65+ [facility] Test 00:00:00 ([address] [facility] [id number]_Ozxmktv PCV13) [code = PNEUMOCOCCAL 65+ YRS (1 of 1 - UMRL87_Swmkolu PCV13)] Future Scheduled 2000-10-14 PNEUMOCOCCAL 65+ Y[facility] Test 00:00:00 (1 of 1 [facility] RCJQ66_Hwikxrk PCV13) [code = PNEUMOCOCCAL 65+ YRS (1 of 1 - [id number]_Eylogbp PCV13)] Future Scheduled 1985-10-14 SHINGLES VACCINES (1 [...] Date/Time Type Type Clinicians Facility Department ID 2021-11-01 Outpatient STLMLC STLC [id number] Common 08:28:00 [facility] 2021-05-10 Outpatient STLMLC STLMLC [id number] Common 14:37:15 [facility] 2021-08-01 2021-08-01 Outpatient Ananda JACKSON [facility] [id number] Univers 09:00:00 09:00:00 ROXY [id number] edgar [facility] 2021-08-01 2021-08-01 Outpatient Ananda JACKSON [facility] [id number] Univers 09:00:00 09:00:00 ROXY hernández [facility] 2021-07-01 2021-07-01 Outpatient HANSA HUNG [id number] [place] 00:00:00 00:00:00 YUE hernandez 2021-06-25 2021-06-25 Outpatient HANSA HUNG [id number] [place] 00:00:00 00:00:00 YUEJESS Perea david 2020-10-03 2020-10-03 Telephone [facility] [id number] Univers 00:00:00 00:00:00 Stanley Bazzi Maestrano [id number] it y of Surgical [id number] Hi as Specialti [id number] Id dical es [address] [place] 2020-04-29 2020-04-29 Outpatient Ananda DYER [facility] [id number] Univers 15:00:00 15:00:00 YESIKA [id number] [facility] 2020-04-29 2020-04-29 [facility] [id number] Univers 15:00:00 15:00:00 YESIKA [facility] 2018-11-06 2018-11-06 Outpatient Marshal Alejandro [id number] Common 11:00:00 11:00:00 [facility] 2018-10-09 2018-10-09 Outpatient Marshal Arayat 26 [id number] Common 10:30:00 10:30:00 t [facility] Sp[facility] t [facility] Results Test Description Test Time Test Comments Results Result Comments Source CALCIUM, IONIZED 2018-06-17 06:48:00 Test Item Value Reference Range Interpretation Comme nts CALCIUM IONIZED (BEAKER) (test code = 698) 1.05 mmol/L 1.12-1.27 L PH, BLOOD (BEAKER) (test code = 1810) 7.43 [id number] 06:12:00 Test Item Value Reference Range Interpretation Comments PHOSPHORUS (BEAKER) (test code = 3.4 mg/dL 2.3-4.7 604) [id number] 06:12:00 Test Item Value Reference Range Interpretation Comments MAGNESIUM (BEAKER) (test code = 1.7 mg/dL 1.6-2.6 627) BASIC METABOLIC [id number] 06:12:00 Test Item Value Reference Range Interpretation [...] PATIEN TS. CBC W/PLT COUNT & AUTO [id number] 05:34:00 Test Item Value Reference Range Interpretation [...] code = 2801) MR, MRA, BRAIN, WITHOUT [id number] 10:59:00Reason for exam:->Ischemic Stroke EvaluationFINAL REPORT MRA Head CLINICAL HISTORY: Stroke TECHNIQUE: MRA of the head utilizing 3-D eozy-ci-bulree technique, with 3-D reconstructions. COMPARISON: None IMPRESSION: Allowing for mild motion degradation, there is no evidence for a [place] proximal branch vessel occlusion. Distal branch vessel occlusions cannot be excluded. Aneurysms cannot be excluded. MRA Neck CLINICAL HISTORY: Stroke TECHNIQUE: MRA of the neck utilizing 2-D and 3-D oeyd-rs-gsvumn technique, with 3-D reconstructions. COMPARISON: None IMPRESSION: [...] MDReport Verified Date/Time: 06/16/2018 10:59:34 Reading Location: [address] Neuro Reading Room MR, MRA, NECK, WITHOUT IV [id number] 10:59:00Reason for exam:- >Ischemic Stroke EvaluationFINAL REPORT MRA Head CLINICAL HISTORY: Stroke TECHNIQUE: MRA of the head utilizing 3-D ncwk-dw-rumtsv technique, with 3-D reconstructions. COMPARISON: None IMPRESSION: Allowing for mild motion degradation, there is no evidence for a [place] proximal branch vessel occlusion. Distal branch vessel occlusions cannot be excluded. Aneurysms cannot be excluded. MRA Neck CLINICAL HISTORY: Stroke TECHNIQUE: MRA of the neck utilizing 2-D and 3-D tnew-dh-mgzqyq technique, with 3-D reconstructions. COMPARISON: None IMPRESSION: [...] MDReport Verified Date/Time: 06/16/2018 10:59:34 Reading Location: [address] Neuro Reading Room MR, BRAIN, WITHOUT [id number] 10:52:00Reason for exam:->Ischemic Stroke EvaluationFINAL REPORT MRI [...] MDReport Verified Date/Time: 06/16/2018 10:52:22 Reading Location: [facility] B1 C013V Neuro Reading Room HEMOGLOBIN [id number] 09:43:00 Test Item Value Reference Range Interpretation Comments HEMOGLOBIN A1C (BEAKER) (test code = 5.9 % 4.3-6.1 368) VITAMIN [id number] 06:40:00 Test Item Value Reference Range Interpretation Comments VITAMIN B12 (BEAKER) (test code = 375 pg/mL [id number] 774) TSH/FREE T4 IF [id number] 05:45:00 Test Item Value Reference Range Interpretation Comments THYROID STIMULATING HORMONE 4.44 uIU/mL 0.35-4.94 (BEAKER) (test code = 772) LIPID [id number] 05:27:00 Test Item Value Reference Range Interpretation [...]
[2021-11-02] MEDS: MELATONIN 5 MG TABLET PO PRN (21:03)
[2021-11-03] MEDS: PHENOL 1.4% ORAL SPRAY 180ML MM PRN ×2 (04:56→07:59)
[2021-11-03] MEDS: HYDROMORPHONE HCL 0.5 MG/0.5 ML INJ IV PRN (04:56)
[2021-11-03] MEDS: LEVOTHYROXINE SOD 0.025 MG TAB PO SCH (04:57)
--- NOTE | 2021-11-03 05:56 | PN ---
Date of Progress Note: 11/02/2021 Ms. Jeffery was seen for cardiac clearance because of history of hypertension and dyslipidemia. She i s a dialysis patient, has had a left carotid endarterectomy. She underwent left hip intertrochanteri c fracture surgery with intramedullary julianne fixation by Dr. Stanford. Postoperatively, she did well. Her blood pressure is 135/67, her pulse was 67. She remained in sinus rhythm. She is afebrile. O 2 saturations 92%. No cardiac complaints. No evidence of congestive heart failure. Remains on carv edilol, hydralazine, aspirin, and heparin subcu. I will sign off her case. I will be available for questions if the need arises. BLANCA/KANA Voice ID: [id number] Report ID: [id number]
--- NOTE | 2021-11-03 06:09 | P.PN ---
Date of Service: 11/03/21 Subjective: soreness/pain of hip TWB of LLE agreeable to SNF ROS: 10 point ROS as noted above, otherwise negative Physical exam GEN: Alert, oriented, NAD CV: Regular rate and rhythm, no edema Pulm: non-labored respirations ABD: Soft, nontender, nondistended MSK: LLE distal sensation intact, surgical dressing in place, no swelling Neuro: Normal speech, normal affect Problem List Left intertrochanteric femur fracture s/p ORIF ESRD on HD Chronic diastolic congestive heart failure Hypertension CVA/PAD Hyperlipidemia discussed with cardiology - no further workup planned pre-operatively. Normal echo a few months ago. patient optimized for surgery s/p ORIF 11/01 tolerating diet PT consulted - limited mobility, recommended SNF pain medication as needed nephrology consulted for HD restart norvasc, BP high DVT prophylaxis agreeable to SNF Code: full Dispo: SNF Time Spent Managing Pts Care (In Minutes): 35
[2021-11-03 06:28] LABS: Absolute Lymphocytes (CBC) 0.6 K/uL (0.7-4.9); Lymphocytes % 9.2 % (15.3-44.8); MCV 90.8 fL (80-100); MPV 8.2 fL (7.6-11.3); RBC Red Blood Cell Count 2.54 M/uL (3.86-4.86)
[2021-11-03 06:40] LABS: Potassium 4.6 mmol/L (3.5-5.1)
[2021-11-03] MEDS: CALCIUM CARB 500MG/VIT D 200 IU TAB PO SCH ×2 (07:59→22:13)
[2021-11-03] MEDS: PRASUGREL (EFFIENT) 10 MG TAB PO SCH (07:59)
[2021-11-03] MEDS: ASPIRIN EC 81 MG TAB PO SCH (07:59)
[2021-11-03] MEDS: carvediloL 6.25 MG TAB PO SCH ×2 (07:59→22:13)
[2021-11-03] MEDS: CALCITROL 0.25 MCG CAP PO SCH (08:00)
[2021-11-03] MEDS: HEPARIN 5000 UNIT/ML 1 ML VIAL SQ SCH ×2 (08:00→22:14)
[2021-11-03] MEDS: NEPRO SHAKE 237 ML CAN PO SCH (08:00)
--- NOTE | 2021-11-03 10:22 | P.PN ---
Date of Service: 11/03/21 Nephrology note: Pt seen by PT this AM, their recommendations are for discharge to SNF, discussed that with pt and she is agreeable. Still reporting some sore throat but no dyspnea, CP, abd pain or N/V Physical Examination Vitals reviewed in EMR General: Alert, NAD HEENT: Atraumatic, Normocephalic, EOMI Neck: Supple Respiratory: Clear to auscultation bilaterally, Normal air movement Cardiovascular: No edema, Normal pulses, Regular rate/rhythm Gastrointestinal: Normal bowel sounds, Soft and benign, Non-distended Musculoskeletal: Other (Reduced Lt leg ROM due to pain, fracture), Lt leg lateral thigh surgical incision covered with dressing Gaffney removed Integumentary: No rashes Neurological: Normal speech, Normal affect Laboratory Data (last 24 hrs) Reviewed in EMR 1. ESRD 2. Chronic HTN 3. Left hip intertrochanteric fracture 4. Anemia 2nd to CKD, other 5. Hypocalcemia 2nd to hyperparathyroidism, CKD -HD today, pre dialysis metab profile stable -F/u post HD BP, restarted home med Coreg at lower dose with holding parameters -Pain management per primary team or Ortho -Did place on Ca carbonate + Vit D, will resume active Vit D as indicated. -Lower post surgical blood counts, transfusions per typical thresholds, dose today NICKI + IV iron on HD Santos Escalona MD, J[facility]
[2021-11-03] MEDS ORDERED: SOD FERRIC GLUC COMPLX/SUCROSE 125 MG in NA CHLORIDE 0.9% 100 ML IV ONE (11:00)
[2021-11-03] MEDS ORDERED: EPOETIN ALFA 10,000 UNIT/ML VIAL IV ONE (11:00)
[2021-11-03] MEDS: ONDANSETRON 4 MG/2 ML VIAL IV PRN (18:01)
[2021-11-04] MEDS: LEVOTHYROXINE SOD 0.025 MG TAB PO SCH (05:51)
[2021-11-04 05:57] LABS: Hematocrit 24.8 % (36.0-45.0); MCV 91.3 fL (80-100); MPV 8.6 fL (7.6-11.3); RBC Red Blood Cell Count 2.71 M/uL (3.86-4.86)
[2021-11-04 06:13] LABS: Albumin 2.3 g/dL (3.4-5.0); Phosphorus 5.9 mg/dL (2.5-4.9); Potassium 4.5 mmol/L (3.5-5.1)
--- NOTE | 2021-11-04 06:25 | P.PN ---
Date of Service: 11/04/21 Subjective: no acute events overnight ROS: 10 point ROS as noted above, otherwise negative Physical exam GEN: Alert, oriented, NAD CV: Regular rate and rhythm, no edema Pulm: non-labored respirations ABD: Soft, nontender, nondistended MSK: LLE distal sensation intact, surgical dressing in place, no swelling Neuro: Normal speech, normal affect Problem List Left intertrochanteric femur fracture s/p ORIF ESRD on HD Chronic diastolic congestive heart failure Hypertension CVA/PAD Hyperlipidemia discussed with cardiology - no further workup planned pre-operatively. Normal echo a few months ago. patient optimized for surgery s/p ORIF 11/01 tolerating diet PT consulted - limited mobility, recommended SNF pain medication as needed nephrology consulted for HD restart norvasc, BP improved DVT prophylaxis agreeable to SNF Code: full Dispo: SNF Time Spent Managing Pts Care (In Minutes): 35
[2021-11-04] MEDS: NEPRO SHAKE 237 ML CAN PO SCH (09:00)
[2021-11-04] MEDS: PRASUGREL (EFFIENT) 10 MG TAB PO SCH (09:28)
[2021-11-04] MEDS: ASPIRIN EC 81 MG TAB PO SCH (09:28)
[2021-11-04] MEDS: AMLODIPINE 10 MG TAB PO SCH (09:28)
[2021-11-04] MEDS: HEPARIN 5000 UNIT/ML 1 ML VIAL SQ SCH ×2 (09:29→20:42)
[2021-11-04] MEDS: carvediloL 6.25 MG TAB PO SCH ×2 (09:29→20:42)
[2021-11-04] MEDS: CALCITROL 0.25 MCG CAP PO SCH (09:30)
[2021-11-04] MEDS: CALCIUM CARB 500MG/VIT D 200 IU TAB PO SCH ×2 (09:30→20:44)
--- NOTE | 2021-11-04 13:24 | PN ---
Date of Progress Note: 11/04/2021 Subjective: The patient was seen and examined at bedside. She was eating lunch. She stated that seng velazquez is doing okay, except for some pain in her left hip area. Objective: Vital Signs: Have been reviewed and are stable. General: She appears in no acute distress. HEENT: Shows atraumatic head. Lungs: Clear to auscultation. Abdomen: Soft and nontender. Extremities: Left extremity with some swelling, but right extremity without any swelling. Laboratory Data: Consistent with ESRD and anemia of chronic disease. Impression: 1.End-stage renal disease, currently on dialysis. The patient refused dialysis yesterday; however, her volume status and labs look okay. We will plan for dialysis on Saturday. 2.Status post open reduction and internal fixation of her left hip. The patient is getting physical therapy and will need close monitoring. 3.Anemia secondary to chronic disease. Continue Epogen with dialysis. 4.Hypertension. Norvasc has been restarted, continue the same. Plan: Overall, the patient is doing okay at this time. Continue Saturday, Saturday, Saturday dialysis. Continue physical therapy, monitor anemia and we will follow up closely. BRIGIDO/KANA Voice ID: [id number] Report ID: [id number]
[2021-11-05] MEDS: LEVOTHYROXINE SOD 0.025 MG TAB PO SCH (05:26)
[2021-11-05 06:43] LABS: Hematocrit 25.7 % (36.0-45.0); MCV 90.3 fL (80-100); MPV 8.4 fL (7.6-11.3); RBC Red Blood Cell Count 2.84 M/uL (3.86-4.86)
[2021-11-05 07:04] LABS: Albumin 2.3 g/dL (3.4-5.0); Potassium 4.8 mmol/L (3.5-5.1)
[2021-11-05] MEDS: NEPRO SHAKE 237 ML CAN PO SCH (09:00)
[2021-11-05] MEDS: AMLODIPINE 10 MG TAB PO SCH (09:43)
[2021-11-05] MEDS: HEPARIN 5000 UNIT/ML 1 ML VIAL SQ SCH ×2 (09:43→20:46)
[2021-11-05] MEDS: PRASUGREL (EFFIENT) 10 MG TAB PO SCH (09:43)
[2021-11-05] MEDS: ASPIRIN EC 81 MG TAB PO SCH (09:43)
[2021-11-05] MEDS: CALCIUM CARB 500MG/VIT D 200 IU TAB PO SCH ×2 (09:43→20:46)
[2021-11-05] MEDS: CALCITROL 0.25 MCG CAP PO SCH (09:43)
[2021-11-05] MEDS: carvediloL 6.25 MG TAB PO SCH ×2 (09:45→20:45)
--- NOTE | 2021-11-05 14:40 | P.PN ---
Date of Service: 11/05/21 Subjective: no acute events overnight overall improving no new symptoms ROS: 10 point ROS as noted above, otherwise negative Physical exam GEN: Alert, oriented, NAD CV: Regular rate and rhythm, no edema Pulm: non-labored respirations on room air ABD: Soft, nontender, nondistended MSK: LLE distal sensation intact, surgical dressing in place, no swelling Neuro: Normal speech, normal affect Problem List Left intertrochanteric femur fracture s/p ORIF ESRD on HD Chronic diastolic congestive heart failure Hypertension CVA/PAD Hyperlipidemia s/p ORIF 11/01 tolerating diet PT consulted - limited mobility, recommended SNF pain medication as needed nephrology consulted for HD restarted norvasc, BP improved DVT prophylaxis agreeable to SNF Code: full Dispo: SNF, 1-2 days Time Spent Managing Pts Care (In Minutes): 35
[2021-11-05] MEDS: POLYETHYL GLY 3350 17 GM/DOSE PO PRN (15:27)
[2021-11-05] MEDS: HYDROCODONE/APAP 5/325 MG TAB PO PRN (16:26)
[2021-11-06 04:13] LABS: Albumin 2.2 g/dL (3.4-5.0); Phosphorus 6.5 mg/dL (2.5-4.9); Potassium 5.1 mmol/L (3.5-5.1)
[2021-11-06] MEDS: LEVOTHYROXINE SOD 0.025 MG TAB PO SCH (06:11)
--- NOTE | 2021-11-06 06:28 | P.PN ---
Date of Service: 11/06/21 Subjective: no acute events overnight slowly improving ROS: 10 point ROS as noted above, otherwise negative Physical exam GEN: Alert, oriented, NAD CV: Regular rate and rhythm, no edema Pulm: non-labored respirations on room air ABD: Soft, nontender, nondistended MSK: LLE distal sensation intact, surgical dressing in place, no swelling Neuro: Normal speech, normal affect Problem List Left intertrochanteric femur fracture s/p ORIF ESRD on HD Chronic diastolic congestive heart failure Hypertension CVA/PAD Hyperlipidemia s/p ORIF 11/01 tolerating diet PT consulted - limited mobility, recommended SNF; pending approvals pain medication as needed nephrology consulted for HD restarted norvasc, BP improved DVT prophylaxis - discussed with cardiology, continue effient with low dose eliquis, hold aspirin agreeable to SNF Code: full Dispo: SNF, 1-2 days Time Spent Managing Pts Care (In Minutes): 35
[2021-11-06] MEDS: HEPARIN 5000 UNIT/ML 1 ML VIAL SQ SCH (09:00)
[2021-11-06] MEDS: ASPIRIN EC 81 MG TAB PO SCH (09:00)
[2021-11-06] MEDS: CALCITROL 0.25 MCG CAP PO SCH (09:14)
[2021-11-06] MEDS: carvediloL 6.25 MG TAB PO SCH ×2 (09:14→22:08)
[2021-11-06] MEDS: NEPRO SHAKE 237 ML CAN PO SCH ×2 (09:14→22:08)
[2021-11-06] MEDS: PRASUGREL (EFFIENT) 10 MG TAB PO SCH (09:14)
[2021-11-06] MEDS: AMLODIPINE 10 MG TAB PO SCH (09:14)
[2021-11-06] MEDS: CALCIUM CARB 500MG/VIT D 200 IU TAB PO SCH ×2 (09:14→22:07)
[2021-11-06] MEDS: POLYETHYL GLY 3350 17 GM/DOSE PO PRN (11:16)
[2021-11-06] MEDS: HYDROCODONE/APAP 5/325 MG TAB PO PRN (18:27)
--- NOTE | 2021-11-06 19:02 | P.PN ---
Date of Service: 11/06/21 Vital Signs Temp Pulse Resp BP Pulse Ox 96.8 F 69 16 149/66 H 96 11/06/21 16:00 11/06/21 16:00 11/06/21 16:00 11/06/21 16:00 11/06/21 16:00 Medications Hydrocodone Bitart/Acetaminophen (Hydrocodone/Apap 5/325 Mg Tab) 1 tab PO Q6H PRN PRN Reason: Pain scale 5-7 (Moderate) Last Admin: 11/06/21 18:27 Dose: 1 tab Documented by: Amlodipine Besylate (Amlodipine 10 Mg Tab) 10 mg PO DAILY [facility] Last Admin: 11/06/21 09:14 Dose: Not Given Documented by: Apixaban (Apixaban 2.5 Mg Tablet) 2.5 mg PO BID [facility] Calcitriol (Calcitrol 0.25 Mcg Cap) 0.25 mcg PO DAILY [facility] Last Admin: 11/06/21 09:14 Dose: 0.25 mcg Documented by: Calcium Carbonate (Calcium Carb 500mg/Vit D 200 Iu Tab) 1 tab PO BID [facility] Last Admin: 11/06/21 09:14 Dose: 1 tab Documented by: Carvedilol (Carvedilol 6.25 Mg Tab) 6.25 mg PO BID [facility] Last Admin: 11/06/21 09:14 Dose: 6.25 mg Documented by: Enteral Nutritional Formula (Nepro Shake 237 Ml Can) 237 ml PO DAILY [facility] Last Admin: 11/06/21 09:14 Dose: 237 ml Documented by: Heparin Sodium (Porcine) (Heparin 1,000 Unit/Ml Vial) 4,000 unit IV EVERY HD PRN PRN Reason: DIALYSIS CATHETER CARE Last Admin: 11/01/21 13:10 Dose: 4,000 unit Documented by: Hydralazine HCl (Hydralazine Hcl 20 Mg/Ml Vial) 10 mg IV Q6HP PRN PRN Reason: Titrate to SBP (MUST DEFINE) Last Admin: 10/31/21 21:31 Dose: 10 mg Documented by: Levothyroxine Sodium (Levothyroxine Sod 0.025 Mg Tab) 0.025 mg PO DAILYAC [facility] Last Admin: 11/06/21 06:11 Dose: 0.025 mg Documented by: Melatonin (Melatonin 5 Mg Tablet) 5 mg PO BEDTIME PRN PRN PRN Reason: INSOMNIA Last Admin: 11/02/21 21:03 Dose: 5 mg Documented by: Ondansetron HCl (Ondansetron 4 Mg/2 Ml Vial) 4 mg IV Q6HP PRN PRN Reason: NAUSEA / VOMITING Last Admin: 11/03/21 18:01 Dose: 4 mg Documented by: Phenol (Phenol 1.4% Oral [place] 180ml) 2 appl MM Q4H PRN PRN Reason: SORE THROAT Last Admin: 11/03/21 07:59 Dose: 2 appl Documented by: Polyethylene Glycol (Polyethyl Gly 3350 17 Gm/Dose) 17 gm PO DAILY PRN PRN Reason: CONSTIPATION Last Admin: 11/06/21 11:16 Dose: 17 gm Documented by: Prasugrel (Prasugrel (Effient) 10 Mg Tab) 10 mg PO DAILY [facility] Last Admin: 11/06/21 09:14 Dose: 10 mg Documented by: Sodium Chloride (Flush Normal Saline 10 Ml) 10 ml IV BID [facility] Last Admin: 11/06/21 09:00 Dose: 10 ml Documented by: Assessment/ Plan: Nephrology No dyspnea No chest pain No acute events overnight Vitals, medications, blood work and imaging reviewed in the chart. NAD. NCAT. MMM. Normal respiratory effort. RRR. Abd ND. No C/C/E. No rash. AAO. Normal speech. ESRD -HD TIW HTN with CKD/ CHF -Continue Amlodipine Diastolic CHF, chronic -HD with UF -Low sodium diet Moderate malnutrition -Encourage nutrition -Consider Nepro -Start MVI Anemia in CKD -Retacrit TIW CKD MBD -Start Vitamin D3 -Continue Calcitriol
[2021-11-06] MEDS: APIXABAN 2.5 MG TABLET PO SCH (22:07)
[2021-11-06] MEDS: DOCUSATE NA 100 MG CAP PO SCH (22:08)
[2021-11-06] MEDS ORDERED: EPOETIN ALFA-EPBX 10,000 UNIT/ML VIAL ONE (22:51)
[2021-11-06] MEDS: EPOETIN ALFA 10,000 UNIT/ML VIAL SQ SCH (22:55)
[2021-11-07] MEDS: LEVOTHYROXINE SOD 0.025 MG TAB PO SCH (05:54)
[2021-11-07] MEDS ORDERED: LACTULOSE 20 GM/30 ML UCUP PO ONE (08:10)
[2021-11-07] MEDS: NEPRO SHAKE 237 ML CAN PO SCH ×2 (09:00)
[2021-11-07] MEDS: MULTIVITAMINS,THERAPEUT 1 TAB PO SCH (09:58)
[2021-11-07] MEDS: PRASUGREL (EFFIENT) 10 MG TAB PO SCH (09:58)
[2021-11-07] MEDS: VITAMIN D 5,000 UNIT CAP PO SCH (09:59)
[2021-11-07] MEDS: carvediloL 6.25 MG TAB PO SCH ×2 (09:59→20:39)
[2021-11-07] MEDS: DOCUSATE NA 100 MG CAP PO SCH ×2 (09:59→20:39)
[2021-11-07] MEDS: CALCITROL 0.25 MCG CAP PO SCH (09:59)
[2021-11-07] MEDS: APIXABAN 2.5 MG TABLET PO SCH ×2 (09:59→20:40)
[2021-11-07] MEDS: CALCIUM CARB 500MG/VIT D 200 IU TAB PO SCH ×2 (09:59→18:31)
[2021-11-07] MEDS: AMLODIPINE 10 MG TAB PO SCH (10:00)
[2021-11-07] MEDS: HYDROCODONE/APAP 5/325 MG TAB PO PRN (11:06)
--- NOTE | 2021-11-07 14:29 | P.PN ---
Subjective Date of Service: 11/07/21 Chief Complaint: Left hip fracture No new complaint. She is tolerating physical therapy. Good oral intake. Physical Examination - Vital Signs Temperature: 97.1 F Blood Pressure: 133/65 Pulse: 72 Respirations: 16 Pulse Ox (%): 98 Assessment And Plan - Plan Physical exam GEN: Alert, oriented, NAD CV: Regular rate and rhythm, no edema Pulm: Clear to auscultation bilaterally ABD: Soft, nontender, nondistended MSK: LLE distal sensation intact, surgical dressing in place, no swelling Neuro: Normal speech, normal affect Problem List Left intertrochanteric femur fracture s/p ORIF ESRD on HD Chronic diastolic congestive heart failure Hypertension CVA/PAD Hyperlipidemia Plan: s/p ORIF 11/01 Tolerating diet Patient is tolerating PT. pain medication as needed Hemodialysis per nephrology Continue antihypertensive DVT prophylaxis - effient with low dose eliquis. Waiting for SNF placement.
[2021-11-07] MEDS ORDERED: LACTULOSE 20 GM/30 ML UCUP PO PRN (16:57)
--- NOTE | 2021-11-07 17:00 | P.PN ---
Date of Service: 11/07/21 Vital Signs Temp Pulse Resp BP Pulse Ox 97.4 F 73 16 170/70 H 96 11/07/21 16:00 11/07/21 16:00 11/07/21 16:00 11/07/21 16:00 11/07/21 16:00 Medications Hydrocodone Bitart/Acetaminophen (Hydrocodone/Apap 5/325 Mg Tab) 1 tab PO Q6H PRN PRN Reason: Pain scale 5-7 (Moderate) Last Admin: 11/07/21 11:06 Dose: 1 tab Documented by: Amlodipine Besylate (Amlodipine 10 Mg Tab) 10 mg PO DAILY [facility] Last Admin: 11/07/21 10:00 Dose: 10 mg Documented by: Apixaban (Apixaban 2.5 Mg Tablet) 2.5 mg PO BID [facility] Last Admin: 11/07/21 09:59 Dose: 2.5 mg Documented by: Calcitriol (Calcitrol 0.25 Mcg Cap) 0.25 mcg PO DAILY [facility] Last Admin: 11/07/21 09:59 Dose: 0.25 mcg Documented by: Calcium Carbonate (Calcium Carb 500mg/Vit D 200 Iu Tab) 1 tab PO BID [facility] Last Admin: 11/07/21 09:59 Dose: 1 tab Documented by: Carvedilol (Carvedilol 6.25 Mg Tab) 6.25 mg PO BID [facility] Last Admin: 11/07/21 09:59 Dose: 6.25 mg Documented by: Cholecalciferol (Vitamin D 5,000 Unit Cap) 5,000 unit PO DAILY [facility] Last Admin: 11/07/21 09:59 Dose: 5,000 unit Documented by: Docusate Sodium (Docusate Na 100 Mg Cap) 100 mg PO BID [facility] Last Admin: 11/07/21 09:59 Dose: 100 mg Documented by: Epoetin Odin (Epoetin Odin 10,000 Unit/Ml Vial) 10,000 unit SQ M,W,F [facility] Last Admin: 11/06/21 22:55 Dose: 10,000 unit Documented by: Heparin Sodium (Porcine) (Heparin 1,000 Unit/Ml Vial) 4,000 unit IV EVERY HD PRN PRN Reason: DIALYSIS CATHETER CARE Last Admin: 11/01/21 13:10 Dose: 4,000 unit Documented by: Hydralazine HCl (Hydralazine Hcl 20 Mg/Ml Vial) 10 mg IV Q6HP PRN PRN Reason: Titrate to SBP (MUST DEFINE) Last Admin: 10/31/21 21:31 Dose: 10 mg Documented by: Lactulose (Lactulose 20 Gm/30 Ml Ucup) 20 gm PO BID [facility] Levothyroxine Sodium (Levothyroxine Sod 0.025 Mg Tab) 0.025 mg PO DAILYAC [facility] Last Admin: 11/07/21 05:54 Dose: 0.025 mg Documented by: Melatonin (Melatonin 5 Mg Tablet) 5 mg PO BEDTIME PRN PRN PRN Reason: INSOMNIA Last Admin: 11/02/21 21:03 Dose: 5 mg Documented by: Nutritional Formula (Ensure High Protein 237 Ml Can) 237 ml PO DAILY [facility] Ondansetron HCl (Ondansetron 4 Mg/2 Ml Vial) 4 mg IV Q6HP PRN PRN Reason: NAUSEA / VOMITING Last Admin: 11/03/21 18:01 Dose: 4 mg Documented by: Phenol (Phenol 1.4% Oral [place] 180ml) 2 appl MM Q4H PRN PRN Reason: SORE THROAT Last Admin: 11/03/21 07:59 Dose: 2 appl Documented by: Polyethylene Glycol (Polyethyl Gly 3350 17 Gm/Dose) 17 gm PO DAILY PRN PRN Reason: CONSTIPATION Last Admin: 11/06/21 11:16 Dose: 17 gm Documented by: Prasugrel (Prasugrel (Effient) 10 Mg Tab) 10 mg PO DAILY [facility] Last Admin: 11/07/21 09:58 Dose: 10 mg Documented by: Sodium Chloride (Flush Normal Saline 10 Ml) 10 ml IV BID [facility] Last Admin: 11/07/21 10:00 Dose: 10 ml Documented by: Vitamin B Complex/Vit C/Folic Acid (Multivitamins,Therapeut 1 Tab) 1 tab PO DAILY [facility] Last Admin: 11/07/21 09:58 Dose: 1 tab Documented by: Assessment/ Plan: Nephrology No dyspnea No chest pain Constipation No acute events overnight Vitals, medications, blood work and imaging reviewed in the chart. NAD. NCAT. MMM. Normal respiratory effort. RRR. Abd ND. No C/C/E. No rash. AAO. Normal speech. ESRD -HD TIW HTN with CKD/ CHF -Continue Amlodipine Diastolic CHF, chronic -HD with UF -Low sodium diet Moderate malnutrition -Encourage nutrition -Consider Nepro -Continue MVI Anemia in CKD -Retacrit TIW CKD MBD -Continue Vitamin D3 -Continue Calcitriol -Tums with meals Slow transit constipation -Lactulose X1
[2021-11-07] MEDS ORDERED: LACTULOSE 20 GM/30 ML UCUP PO SCH (21:00)
[2021-11-08 06:09] LABS: Absolute Lymphocytes (CBC) 0.7 K/uL (0.7-4.9); Hematocrit 26.1 % (36.0-45.0); MCV 87.9 fL (80-100); RBC Red Blood Cell Count 2.97 M/uL (3.86-4.86)
[2021-11-08 06:33] LABS: AST/SGOT 16 U/L (15-37); Albumin 2.1 g/dL (3.4-5.0); Alkaline Phosphatase 62 U/L (45-117); BUN Blood Urea Nitrogen 50 mg/dL (7-18); Bicarbonate 26 mmol/L (21-32); Bilirubin Total 0.6 mg/dL (0.2-1.0); Glomerular Filtration Rate 7 ml/min (=/>90); Glucose Level 114 mg/dL (74-106); Magnesium 2.2 mg/dL (1.8-2.4); Phosphorus 4.9 mg/dL (2.5-4.9); Potassium 4.4 mmol/L (3.5-5.1); Protein, Total 5.3 g/dL (6.4-8.2); Sodium Level 135 mmol/L (136-145)
[2021-11-08 06:37] LABS: ALT/SGPT < 10 U/L (12-78)
[2021-11-08] MEDS: HYDROCODONE/APAP 5/325 MG TAB PO PRN ×3 (06:38→22:42)
[2021-11-08] MEDS: LEVOTHYROXINE SOD 0.025 MG TAB PO SCH (06:39)
[2021-11-08] MEDS: PRASUGREL (EFFIENT) 10 MG TAB PO SCH ×2 (09:00→11:26)
[2021-11-08] MEDS: ENSURE HIGH PROTEIN 237 ML CAN PO SCH (09:00)
[2021-11-08] MEDS: CALCITROL 0.25 MCG CAP PO SCH (09:39)
[2021-11-08] MEDS: carvediloL 6.25 MG TAB PO SCH ×2 (09:39→20:38)
[2021-11-08] MEDS: MULTIVITAMINS,THERAPEUT 1 TAB PO SCH (09:39)
[2021-11-08] MEDS: AMLODIPINE 10 MG TAB PO SCH (09:39)
[2021-11-08] MEDS: APIXABAN 2.5 MG TABLET PO SCH ×2 (09:40→20:39)
[2021-11-08] MEDS: VITAMIN D 5,000 UNIT CAP PO SCH (09:40)
[2021-11-08] MEDS: DOCUSATE NA 100 MG CAP PO SCH ×2 (09:40→20:38)
[2021-11-08] MEDS: CALCIUM CARB 500MG/VIT D 200 IU TAB PO SCH ×2 (09:44→17:03)
--- NOTE | 2021-11-08 11:05 | P.PN ---
Date of Service: 11/08/21 Nephrology note: Pt seen on HD this AM, tolerating HD well, BP on HD is not elevated, did display some confusion as she did not recall which surgery she had on her Lt leg Physical Examination Vitals reviewed in EMR General: Alert, NAD HEENT: Atraumatic, Normocephalic, EOMI Neck: Supple Respiratory: Clear to auscultation bilaterally, Normal air movement Cardiovascular: No edema, Normal pulses, Regular rate/rhythm Gastrointestinal: Normal bowel sounds, Soft and benign, Non-distended Musculoskeletal: Other (Reduced Lt leg ROM due to pain, fracture), Lt leg lateral thigh surgical incision covered with dressing Gaffney removed Integumentary: No rashes Neurological: Normal speech, Normal affect, awake, alert but with some confusion Laboratory Data (last 24 hrs) Reviewed in EMR 1. ESRD 2. Chronic HTN 3. Left hip intertrochanteric fracture 4. Anemia 2nd to CKD, other 5. 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 Abnormality of albumin -HD today, pre dialysis metab profile stable. Azotemia improved after HD Mon, pt had refused HD last Sat and for some reason had not received it the following day it appears -F/u post HD BP, on home meds -Did place on Ca carbonate + Vit D, did resume active Vit D as indicated. -Lower post surgical blood counts, transfusions per typical thresholds, cont NICKI + IV iron to target - -Encourage protein supplementation, ask lacquer sizer to monitor oral intake. Santos Escalona MD, [facility]
--- NOTE | 2021-11-08 15:12 | P.PN ---
Subjective Date of Service: 11/08/21 Chief Complaint: Left hip fracture No new complaint. She is tolerating physical therapy. Hemodialysis today. Physical Examination - Vital Signs Temperature: 97.4 F Blood Pressure: 166/72 Pulse: 83 Respirations: 16 Pulse Ox (%): 95 Assessment And Plan - Plan Physical exam GEN: Alert, oriented, NAD CV: Regular rate and rhythm, no edema Pulm: Clear to auscultation bilaterally ABD: Soft, nontender, nondistended MSK: LLE distal sensation intact, surgical dressing in place, no swelling Neuro: Normal speech, normal affect Problem List Left intertrochanteric femur fracture s/p ORIF ESRD on HD Chronic diastolic congestive heart failure Hypertension CVA/PAD Hyperlipidemia Plan: s/p ORIF 11/01 Tolerating diet. Patient is tolerating PT. pain medication as needed Routine hemodialysis Continue antihypertensive DVT prophylaxis - effient with low dose eliquis. SNF placement.
[2021-11-08] MEDS: EPOETIN ALFA 10,000 UNIT/ML VIAL SQ SCH (17:03)
[2021-11-09] MEDS: HYDRALAZINE HCL 20 MG/ML VIAL IV PRN (00:06)
[2021-11-09] MEDS: LEVOTHYROXINE SOD 0.025 MG TAB PO SCH (05:02)
[2021-11-09] MEDS: PRASUGREL (EFFIENT) 10 MG TAB PO SCH (08:31)
[2021-11-09] MEDS: APIXABAN 2.5 MG TABLET PO SCH ×2 (08:32→21:01)
[2021-11-09] MEDS: carvediloL 6.25 MG TAB PO SCH ×2 (08:32→21:00)
[2021-11-09] MEDS: CALCITROL 0.25 MCG CAP PO SCH (08:32)
[2021-11-09] MEDS: VITAMIN D 5,000 UNIT CAP PO SCH (08:32)
[2021-11-09] MEDS: DOCUSATE NA 100 MG CAP PO SCH ×2 (08:32→21:00)
[2021-11-09] MEDS: CALCIUM CARB 500MG/VIT D 200 IU TAB PO SCH ×2 (08:32→16:32)
[2021-11-09] MEDS: ENSURE HIGH PROTEIN 237 ML CAN PO SCH (08:32)
[2021-11-09] MEDS: AMLODIPINE 10 MG TAB PO SCH (08:32)
[2021-11-09] MEDS: MULTIVITAMINS,THERAPEUT 1 TAB PO SCH (08:32)
--- NOTE | 2021-11-09 11:54 | P.PN ---
Date of Service: 11/09/21 Nephrology note: Pt seen through [facility] isolation room window, resting comfortably, case discussed with nursing staff, no acute events or complaints Vitals, labs, imaging reviewed in EMR Physical Examination Prior exam, exam deferred today due to COVID-19 isolation precautions General: Alert, NAD HEENT: Atraumatic, Normocephalic, EOMI Neck: Supple Respiratory: Clear to auscultation bilaterally, Normal air movement Cardiovascular: No edema, Normal pulses, Regular rate/rhythm Gastrointestinal: Normal bowel sounds, Soft and benign, Non-distended Musculoskeletal: Other (Reduced Lt leg ROM due to pain, fracture), Lt leg lateral thigh surgical incision covered with dressing Gaffney removed Integumentary: No rashes Neurological: Normal speech, Normal affect, awake, alert but with some confusion 1. ESRD 2. Chronic HTN 3. Left hip intertrochanteric fracture 4. Anemia 2nd to CKD, other 5. 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 Abnormality of albumin -HD oerformed yesterday without issues, no new labs avail today -BP remains elevated, add ARB to her regimen. -Did place on Ca carbonate + Vit D, did resume active Vit D as indicated. -Lower post surgical blood counts, transfusions per typical thresholds, cont NICKI + IV iron to target 10-11 -Encourage protein supplementation, ask steel engraver to monitor oral intake. Santos Escalona MD, [facility]
--- NOTE | 2021-11-09 16:50 | P.PN ---
Subjective Date of Service: 11/09/21 Chief Complaint: Left hip fracture No new complaint. She is tolerating physical therapy. Physical Examination - Vital Signs Temperature: 97.8 F Blood Pressure: 163/64 Pulse: 81 Respirations: 16 Pulse Ox (%): 99 Assessment And Plan - Plan Physical exam GEN: Alert, oriented, NAD CV: Regular rate and rhythm, no edema Pulm: Clear to auscultation bilaterally ABD: Soft, nontender, nondistended MSK: LLE distal sensation intact, surgical dressing in place, no swelling Neuro: Normal speech, normal affect Problem List Left intertrochanteric femur fracture s/p ORIF ESRD on HD Chronic diastolic congestive heart failure Hypertension CVA/PAD Hyperlipidemia Plan: s/p ORIF 11/01 Tolerating diet. Patient is tolerating PT. pain medication as needed Routine hemodialysis Continue antihypertensive DVT prophylaxis - effient with low dose eliquis. Patient denied [facility] today. patient services specialist assisting with arrangement for SNF placement.
[2021-11-10] MEDS: HYDROCODONE/APAP 7.5/325 MG TAB PO PRN ×2 (00:41→07:44)
[2021-11-10 03:36] LABS: Absolute Lymphocytes (CBC) 0.9 K/uL (0.7-4.9); Hematocrit 28.6 % (36.0-45.0); Lymphocytes % 13.4 % (15.3-44.8); MCV 88.5 fL (80-100); RBC Red Blood Cell Count 3.23 M/uL (3.86-4.86)
[2021-11-10] MEDS: LEVOTHYROXINE SOD 0.025 MG TAB PO SCH (05:51)
[2021-11-10] MEDS: APIXABAN 2.5 MG TABLET PO SCH ×2 (07:45→20:48)
[2021-11-10] MEDS: VITAMIN D 5,000 UNIT CAP PO SCH (07:45)
[2021-11-10] MEDS: CALCIUM CARB 500MG/VIT D 200 IU TAB PO SCH ×2 (07:45→17:42)
[2021-11-10] MEDS: DOCUSATE NA 100 MG CAP PO SCH ×2 (07:45→20:48)
[2021-11-10] MEDS: CALCITROL 0.25 MCG CAP PO SCH (07:45)
[2021-11-10] MEDS: MULTIVITAMINS,THERAPEUT 1 TAB PO SCH (07:45)
[2021-11-10] MEDS: carvediloL 6.25 MG TAB PO SCH ×2 (07:46→20:48)
[2021-11-10] MEDS: AMLODIPINE 10 MG TAB PO SCH (07:47)
[2021-11-10] MEDS: LOSARTAN POTASSIUM 50 MG TABLET PO SCH (07:48)
[2021-11-10] MEDS: ENSURE HIGH PROTEIN 237 ML CAN PO SCH (07:49)
[2021-11-10] MEDS: PRASUGREL (EFFIENT) 10 MG TAB PO SCH (07:49)
--- NOTE | 2021-11-10 12:06 | P.PN ---
Date of Service: 11/10/21 Nephrology note: Pt seen in COVID-19 isolation, asymptomatic, denies cough, drainage, sore throat or dyspnea Vitals, labs, imaging reviewed in EMR Physical Examination General: Alert, NAD HEENT: Atraumatic, Normocephalic, EOMI Neck: Supple Respiratory: Clear to auscultation bilaterally, Normal air movement Cardiovascular: No edema, Normal pulses, Regular rate/rhythm Gastrointestinal: Normal bowel sounds, Soft and benign, Non-distended Musculoskeletal: Other (Reduced Lt leg ROM due to pain, fracture), Lt leg lateral thigh surgical incision covered with dressing Gaffney removed Integumentary: No rashes Neurological: Normal speech, Normal affect, awake, alert but with some confusion 1. ESRD 2. Chronic HTN 3. Left hip intertrochanteric fracture 4. Anemia 2nd to CKD, other 5. 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 Abnormality of albumin -HD today, pre dialysis metab profile reviewed and acceptable -BP has been elevated, add ARB to her regimen. No signs of gross fluid overload. -Did place on Ca carbonate + Vit D, did resume active Vit D as indicated. -Lower post surgical blood counts, transfusions per typical thresholds, Hb is improving and did increase by > 1 g/dl so will hold further NICKI dosing today. -Encourage protein supplementation, ask game operator to monitor oral intake. Santos Escalona MD, [facility]
--- NOTE | 2021-11-10 16:21 | P.PN ---
Subjective Date of Service: 11/10/21 Chief Complaint: Left hip fracture Patient has no new complaint She is eating well. Physical Examination - Vital Signs Temperature: 97.0 F Blood Pressure: 140/54 Pulse: 72 Respirations: 18 Pulse Ox (%): 94 Assessment And Plan - Plan Physical exam GEN: Alert, oriented, NAD CV: Regular rate and rhythm, no edema Pulm: Clear to auscultation bilaterally ABD: Soft, nontender, nondistended MSK: surgical dressing in place, no swelling Neuro: Normal speech, normal affect, no focal motor deficit. Problem List Left intertrochanteric femur fracture s/p ORIF ESRD on HD Chronic diastolic congestive heart failure Hypertension CVA/PAD Hyperlipidemia Plan: s/p ORIF 11/01 Tolerating diet. Patient is tolerating PT. pain medication as needed Routine hemodialysis. Nephrology is following. Continue antihypertensive DVT prophylaxis - effient with low dose eliquis. Patient denied [facility] today. financial services technician assisting with arrangement for SNF placement.
[2021-11-11] MEDS: HYDROCODONE/APAP 7.5/325 MG TAB PO PRN ×2 (01:34→21:49)
[2021-11-11] MEDS: LEVOTHYROXINE SOD 0.025 MG TAB PO SCH (05:49)
[2021-11-11] MEDS: ENSURE HIGH PROTEIN 237 ML CAN PO SCH (09:00)
[2021-11-11] MEDS: PRASUGREL (EFFIENT) 10 MG TAB PO SCH (09:22)
[2021-11-11] MEDS: CALCIUM CARB 500MG/VIT D 200 IU TAB PO SCH ×2 (09:23→17:03)
[2021-11-11] MEDS: LOSARTAN POTASSIUM 50 MG TABLET PO SCH (09:23)
[2021-11-11] MEDS: AMLODIPINE 10 MG TAB PO SCH (09:23)
[2021-11-11] MEDS: DOCUSATE NA 100 MG CAP PO SCH ×2 (09:23→20:28)
[2021-11-11] MEDS: carvediloL 6.25 MG TAB PO SCH ×2 (09:23→20:28)
[2021-11-11] MEDS: MULTIVITAMINS,THERAPEUT 1 TAB PO SCH (09:23)
[2021-11-11] MEDS: CALCITROL 0.25 MCG CAP PO SCH (09:23)
[2021-11-11] MEDS: VITAMIN D 5,000 UNIT CAP PO SCH (09:24)
[2021-11-11] MEDS: APIXABAN 2.5 MG TABLET PO SCH ×2 (09:24→20:28)
[2021-11-11] MEDS: POLYETHYL GLY 3350 17 GM/DOSE PO PRN (12:43)
--- NOTE | 2021-11-11 13:43 | P.PN ---
Date of Service: 11/11/21 Nephrology note: Pt seen through isolation window, resting comfortably, no acute issues, tolerated HD yesterday uneventfully Vitals, labs, imaging reviewed in EMR Physical Examination Prior exam General: Alert, NAD HEENT: Atraumatic, Normocephalic, EOMI Neck: Supple Respiratory: Clear to auscultation bilaterally, Normal air movement Cardiovascular: No edema, Normal pulses, Regular rate/rhythm Gastrointestinal: Normal bowel sounds, Soft and benign, Non-distended Musculoskeletal: Other (Reduced Lt leg ROM due to pain, fracture), Lt leg lateral thigh surgical incision covered with dressing Gaffney removed Integumentary: No rashes Neurological: Normal speech, Normal affect, awake, alert but with some confusion 1. ESRD 2. Chronic HTN 3. Left hip intertrochanteric fracture 4. Anemia 2nd to CKD, other 5. 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 Abnormality of albumin -HD performed yesterday, cont iHD MWF -BP has been elevated/labile, add ARB to her regimen. No signs of gross fluid overload. Monitor -Did place on Ca carbonate + Vit D, did resume active Vit D as indicated. -Lower post surgical blood counts, transfusions per typical thresholds, Hb is improving and did increase by > 1 g/dl so did hold further NICKI dosing yesterday. Remains on Eliquis. -Encourage protein supplementation, ask floorhand to monitor oral intake. Santos Escalona MD, [facility]
--- NOTE | 2021-11-11 14:22 | P.PN ---
Subjective Date of Service: 11/11/21 Chief Complaint: Left hip fracture No new complaint She is eating well. Physical Examination - Vital Signs Temperature: 97.5 F Blood Pressure: 137/70 Pulse: 76 Respirations: 18 Pulse Ox (%): 96 Assessment And Plan - Plan Physical exam GEN: Alert, oriented, NAD CV: Regular rate and rhythm, no edema Pulm: Clear to auscultation bilaterally ABD: Soft, nontender, nondistended MSK: surgical dressing in place, no swelling Neuro: Normal speech, normal affect, no focal motor deficit. Problem List Left intertrochanteric femur fracture s/p ORIF ESRD on HD Chronic diastolic congestive heart failure Hypertension CVA/PAD Hyperlipidemia Plan: s/p ORIF 11/01 Tolerating diet. Patient is tolerating PT. Functional status is gradually improving pain medication as needed Routine hemodialysis. Nephrology is following. Continue antihypertensive DVT prophylaxis - effient with low dose eliquis. Patient denied [facility]. student financial services counselor assisting with arrangement for SNF placement.
[2021-11-12] MEDS: LEVOTHYROXINE SOD 0.025 MG TAB PO SCH (05:15)
[2021-11-12] MEDS: PRASUGREL (EFFIENT) 10 MG TAB PO SCH (09:00)
[2021-11-12] MEDS: AMLODIPINE 10 MG TAB PO SCH (09:10)
[2021-11-12] MEDS: carvediloL 6.25 MG TAB PO SCH ×2 (09:10→20:40)
[2021-11-12] MEDS: MULTIVITAMINS,THERAPEUT 1 TAB PO SCH (09:10)
[2021-11-12] MEDS: DOCUSATE NA 100 MG CAP PO SCH ×2 (09:11→20:40)
[2021-11-12] MEDS: CALCITROL 0.25 MCG CAP PO SCH (09:11)
[2021-11-12] MEDS: APIXABAN 2.5 MG TABLET PO SCH ×2 (09:11→20:40)
[2021-11-12] MEDS: VITAMIN D 5,000 UNIT CAP PO SCH (09:11)
[2021-11-12] MEDS: LOSARTAN POTASSIUM 50 MG TABLET PO SCH ×2 (09:11→20:40)
[2021-11-12] MEDS: CALCIUM CARB 500MG/VIT D 200 IU TAB PO SCH ×2 (09:12→16:06)
[2021-11-12] MEDS: ENSURE HIGH PROTEIN 237 ML CAN PO SCH (09:12)
--- NOTE | 2021-11-12 13:43 | P.PN ---
Subjective Date of Service: 11/12/21 Chief Complaint: Left hip fracture No new complaint Physical Examination - Vital Signs Temperature: 97.5 F Blood Pressure: 176/72 Pulse: 87 Respirations: 16 Pulse Ox (%): 95 Assessment And Plan - Plan Physical exam GEN: Alert, oriented, NAD CV: Regular rate and rhythm, no edema Pulm: Clear to auscultation bilaterally ABD: Soft, nontender, nondistended MSK: surgical dressing in place, no swelling Neuro: Normal speech, normal affect, no focal motor deficit. Problem List Left intertrochanteric femur fracture s/p ORIF ESRD on HD Chronic diastolic congestive heart failure Hypertension CVA/PAD Hyperlipidemia Plan: s/p ORIF 11/01 Tolerating diet. Patient is tolerating PT. Functional status is gradually improving pain medication as needed Routine hemodialysis. Nephrology is following. Continue antihypertensive DVT prophylaxis - effient with low dose eliquis. Patient denied [facility]. real estate services administrator assisting with arrangement for SNF placement. Clinically stable for discharge. Waiting for placement.
--- NOTE | 2021-11-12 16:26 | P.PN ---
Date of Service: 11/12/21 Nephrology note: Pt doing fair, no dyspnea, not on O2, reports appetite is ok, no N/V/D. Vitals, labs, imaging reviewed in EMR Physical Examination Prior exam General: Alert, NAD HEENT: Atraumatic, Normocephalic, EOMI Neck: Supple Respiratory: Clear to auscultation bilaterally, Normal air movement Cardiovascular: No edema, Normal pulses, Regular rate/rhythm Gastrointestinal: Normal bowel sounds, Soft and benign, Non-distended Musculoskeletal: Other (Reduced Lt leg ROM due to pain, fracture), Lt leg lateral thigh surgical incision covered with dressing Gaffney removed Integumentary: No rashes Neurological: Normal speech, Normal affect, awake, alert but with some confusion 1. ESRD 2. Chronic HTN 3. Left hip intertrochanteric fracture 4. Anemia 2nd to CKD, other 5. 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 Abnormality of albumin -HD performed last on Sat, cont iHD MWF for now, can return to OP schedule on discharge. -BP has been elevated/labile, added ARB to her regimen, will raise dose. No signs of gross fluid overload. Monitor -Did place on Ca carbonate + Vit D, did resume active Vit D as indicated. -Lower post surgical blood counts, transfusions per typical thresholds, Hb last week was improving and did increase by > 1 g/dl so did hold further NICKI dosing Sat. Remains on Eliquis. -Encourage protein supplementation, ask swing manager to monitor oral intake. Santos Escalona MD, [facility]
[2021-11-12] MEDS: MELATONIN 5 MG TABLET PO PRN (20:40)
[2021-11-12] MEDS: HYDROCODONE/APAP 7.5/325 MG TAB PO PRN (20:40)
[2021-11-13] MEDS: MELATONIN 5 MG TABLET PO PRN ×2 (00:16→20:17)
[2021-11-13] MEDS: HYDRALAZINE HCL 20 MG/ML VIAL IV PRN (00:16)
[2021-11-13] MEDS ORDERED: ALPRAZOLAM 0.25 MG TABLET PO ONE ×2 (02:45→22:35)
[2021-11-13 04:31] LABS: Hematocrit 26.1 % (36.0-45.0); Lymphocytes % 13.9 % (15.3-44.8); MPV 6.8 fL (7.6-11.3); RBC Red Blood Cell Count 2.97 M/uL (3.86-4.86)
[2021-11-13] MEDS: LEVOTHYROXINE SOD 0.025 MG TAB PO SCH (05:21)
[2021-11-13] MEDS: MULTIVITAMINS,THERAPEUT 1 TAB PO SCH (08:43)
[2021-11-13] MEDS: APIXABAN 2.5 MG TABLET PO SCH ×2 (08:44→20:17)
[2021-11-13] MEDS: VITAMIN D 5,000 UNIT CAP PO SCH (08:44)
[2021-11-13] MEDS: LOSARTAN POTASSIUM 50 MG TABLET PO SCH ×2 (08:44→20:17)
[2021-11-13] MEDS: AMLODIPINE 10 MG TAB PO SCH (08:44)
[2021-11-13] MEDS: CALCITROL 0.25 MCG CAP PO SCH (08:44)
[2021-11-13] MEDS: carvediloL 6.25 MG TAB PO SCH ×2 (08:44→20:17)
[2021-11-13] MEDS: CALCIUM CARB 500MG/VIT D 200 IU TAB PO SCH ×2 (08:44→15:51)
[2021-11-13] MEDS: ENSURE HIGH PROTEIN 237 ML CAN PO SCH (08:44)
[2021-11-13] MEDS: PRASUGREL (EFFIENT) 10 MG TAB PO SCH (08:45)
[2021-11-13] MEDS: DOCUSATE NA 100 MG CAP PO SCH ×2 (08:45→20:17)
--- NOTE | 2021-11-13 14:14 | P.PN ---
Subjective Date of Service: 11/13/21 Chief Complaint: Left hip fracture Patient has no new complaint. No issues overnight. Physical Examination - Vital Signs Temperature: 96.8 F Blood Pressure: 143/61 Pulse: 64 Respirations: 18 Pulse Ox (%): 97 Assessment And Plan - Plan Physical exam GEN: Alert, oriented, NAD CV: Regular rate and rhythm, no edema Pulm: Clear to auscultation bilaterally ABD: Soft, nontender, nondistended MSK: surgical dressing in place, no swelling Neuro: Normal speech, normal affect, no focal motor deficit. Problem List Left intertrochanteric femur fracture s/p ORIF ESRD on HD Chronic diastolic congestive heart failure Hypertension CVA/PAD Hyperlipidemia Plan: s/p ORIF 11/01 Tolerating diet. Patient is tolerating PT-bed mobility and sitting up. She has not ambulated yet. pain medication as needed Routine hemodialysis. Nephrology is following. Continue antihypertensive DVT prophylaxis - effient with low dose eliquis. Patient denied [facility]. card services specialist assisting with arrangement for SNF placement. Clinically stable for discharge. Waiting for placement.
--- NOTE | 2021-11-13 17:43 | P.PN ---
Date of Service: 11/13/21 Vital Signs Temp Pulse Resp BP Pulse Ox 97.2 F 72 16 155/56 H 96 11/13/21 15:41 11/13/21 15:41 11/13/21 15:41 11/13/21 15:41 11/13/21 15:41 Medications Hydrocodone Bitart/Acetaminophen (Hydrocodone/Apap 7.5/325 Mg Tab) 1 tab PO Q4H PRN PRN Reason: Pain scale 8-10 (Severe) Last Admin: 11/12/21 20:40 Dose: 1 tab Amlodipine Besylate (Amlodipine 10 Mg Tab) 10 mg PO DAILY [facility] Last Admin: 11/13/21 08:44 Dose: 10 mg Apixaban (Apixaban 2.5 Mg Tablet) 2.5 mg PO BID [facility] Last Admin: 11/13/21 08:44 Dose: 2.5 mg Calcitriol (Calcitrol 0.25 Mcg Cap) 0.25 mcg PO DAILY [facility] Last Admin: 11/13/21 08:44 Dose: 0.25 mcg Calcium Carbonate (Calcium Carb 500mg/Vit D 200 Iu Tab) 1 tab PO BIDWM [facility] Last Admin: 11/13/21 15:51 Dose: 1 tab Carvedilol (Carvedilol 6.25 Mg Tab) 6.25 mg PO BID [facility] Last Admin: 11/13/21 08:44 Dose: 6.25 mg Cholecalciferol (Vitamin D 5,000 Unit Cap) 5,000 unit PO DAILY [facility] Last Admin: 11/13/21 08:44 Dose: 5,000 unit Docusate Sodium (Docusate Na 100 Mg Cap) 100 mg PO BID [facility] Last Admin: 11/13/21 08:45 Dose: Not Given Heparin Sodium (Porcine) (Heparin 1,000 Unit/Ml Vial) 4,000 unit IV EVERY HD PRN PRN Reason: [facility] [employer] Last Admin: 11/01/21 13:10 Dose: 4,000 unit Hydralazine HCl (Hydralazine Hcl 20 Mg/Ml Vial) 10 mg IV Q6HP PRN PRN Reason: Titrate to SBP (MUST DEFINE) Last Admin: 11/13/21 00:16 Dose: 10 mg Lactulose (Lactulose 20 Gm/30 Ml Ucup) 20 gm PO BID PRN PRN Reason: CONSTIPATION Last Admin: 11/09/21 13:25 Dose: 20 gm Levothyroxine Sodium (Levothyroxine Sod 0.025 Mg Tab) 0.025 mg PO DAILYAC [facility] Last Admin: 11/13/21 05:21 Dose: 0.025 mg Losartan Potassium (Losartan Potassium 50 Mg Tablet) 50 mg PO DAILY [facility] Last Admin: 11/12/21 09:11 Dose: 50 mg Melatonin (Melatonin 5 Mg Tablet) 5 mg PO BEDTIME PRN PRN PRN Reason: INSOMNIA Last Admin: 11/13/21 00:16 Dose: 5 mg Nutritional Formula (Ensure High Protein 237 Ml Can) 237 ml PO DAILY [facility] Last Admin: 11/13/21 08:44 Dose: Not Given Ondansetron HCl (Ondansetron 4 Mg/2 Ml Vial) 4 mg IV Q6HP PRN PRN Reason: NAUSEA / VOMITING Last Admin: 11/03/21 18:01 Dose: 4 mg Phenol (Phenol 1.4% Oral [place] 180ml) 2 appl MM Q4H PRN PRN Reason: SORE THROAT Last Admin: 11/03/21 07:59 Dose: 2 appl Polyethylene Glycol (Polyethyl Gly 3350 17 Gm/Dose) 17 gm PO DAILY PRN PRN Reason: CONSTIPATION Last Admin: 11/11/21 12:43 Dose: 17 gm Prasugrel (Prasugrel (Effient) 10 Mg Tab) 10 mg PO DAILY [facility] Last Admin: 11/13/21 08:45 Dose: 10 mg Sodium Chloride (Flush Normal Saline 10 Ml) 10 ml IV BID [facility] Last Admin: 11/13/21 08:45 Dose: 10 ml Vitamin B Complex/Vit C/Folic Acid (Multivitamins,Therapeut 1 Tab) 1 tab PO DAILY [facility] Last Admin: 11/13/21 08:43 Dose: 1 tab Assessment/ Plan: Nephrology No dyspnea No chest pain No acute events overnight Vitals, medications, blood work and imaging reviewed in the chart. NAD. NCAT. MMM. Normal respiratory effort. RRR. Abd ND. No C/C/E. No rash. AAO. Normal speech. ESRD -HD TIW -Seen and examined on HD today HTN with CKD/ CHF -Change Amlodipine to Nifedipine ER 30. Diastolic CHF, chronic -HD with UF -Low sodium diet Moderate malnutrition -Encourage nutrition -Consider Nepro -Continue MVI Anemia in CKD -Retacrit TIW CKD MBD -Continue Vitamin D3 -Continue Calcitriol -Tums with meals Slow transit constipation -Lactulose PRN Placement pending. Case reviewed with Dr. Godinez
[2021-11-13] MEDS: HYDROCODONE/APAP 7.5/325 MG TAB PO PRN ×2 (20:17→23:41)
[2021-11-14] MEDS: LEVOTHYROXINE SOD 0.025 MG TAB PO SCH (05:32)
--- NOTE | 2021-11-14 06:38 | P.PN ---
Date of Service: 11/14/21 Subjective: had coughing episode when eating this morning otherwise doing ok ROS: 10 point ROS as noted above, otherwise negative Physical exam GEN: Alert, oriented, NAD CV: Regular rate and rhythm, no edema Pulm: non-labored respirations on room air ABD: Soft, nontender, nondistended MSK: LLE distal sensation intact, no swelling Neuro: Normal speech, normal affect Problem List Left intertrochanteric femur fracture s/p ORIF ESRD on HD Chronic diastolic congestive heart failure Hypertension CVA/PAD Hyperlipidemia s/p ORIF 11/01 tolerating diet PT consulted - limited mobility, recommended SNF; pending approvals - delayed due to COVID positive pain medication as needed nephrology consulted for HD continue anti-hypertensives DVT prophylaxis - discussed with cardiology, continue effient with low dose eliquis, hold aspirin agreeable to SNF Code: full Dispo: SNF, several days Time Spent Managing Pts Care (In Minutes): 35
[2021-11-14] MEDS: CALCIUM CARB 500MG/VIT D 200 IU TAB PO SCH ×2 (08:00→16:15)
[2021-11-14] MEDS: NIFEDIPINE XL 30 MG TABLET PO SCH (08:53)
[2021-11-14] MEDS: APIXABAN 2.5 MG TABLET PO SCH ×2 (08:54→20:39)
[2021-11-14] MEDS: MULTIVITAMINS,THERAPEUT 1 TAB PO SCH (08:54)
[2021-11-14] MEDS: VITAMIN D 5,000 UNIT CAP PO SCH (08:54)
[2021-11-14] MEDS: CALCITROL 0.25 MCG CAP PO SCH (08:54)
[2021-11-14] MEDS: DOCUSATE NA 100 MG CAP PO SCH ×2 (08:54→20:38)
[2021-11-14] MEDS: carvediloL 6.25 MG TAB PO SCH ×2 (08:54→20:40)
[2021-11-14] MEDS: LOSARTAN POTASSIUM 50 MG TABLET PO SCH ×2 (08:54→20:39)
[2021-11-14] MEDS: PRASUGREL (EFFIENT) 10 MG TAB PO SCH (08:55)
[2021-11-14] MEDS: ENSURE HIGH PROTEIN 237 ML CAN PO SCH (08:55)
--- NOTE | 2021-11-14 17:41 | P.PN ---
Date of Service: 11/14/21 Vital Signs Temp Pulse Resp BP Pulse Ox 96.4 F L 71 18 138/50 L 96 11/14/21 12:00 11/14/21 12:00 11/14/21 12:00 11/14/21 12:00 11/14/21 12:00 Medications Hydrocodone Bitart/Acetaminophen (Hydrocodone/Apap 7.5/325 Mg Tab) 1 tab PO Q4H PRN PRN Reason: Pain scale 8-10 (Severe) Last Admin: 11/13/21 23:41 Dose: 1 tab Amlodipine Besylate (Amlodipine 10 Mg Tab) 10 mg PO DAILY [facility] Last Admin: 11/13/21 08:44 Dose: 10 mg Apixaban (Apixaban 2.5 Mg Tablet) 2.5 mg PO BID [facility] Last Admin: 11/14/21 08:54 Dose: 2.5 mg Calcitriol (Calcitrol 0.25 Mcg Cap) 0.25 mcg PO DAILY [facility] Last Admin: 11/14/21 08:54 Dose: 0.25 mcg Calcium Carbonate (Calcium Carb 500mg/Vit D 200 Iu Tab) 1 tab PO BIDWM [facility] Last Admin: 11/14/21 16:15 Dose: 1 tab Carvedilol (Carvedilol 6.25 Mg Tab) 6.25 mg PO BID [facility] Last Admin: 11/14/21 08:54 Dose: 6.25 mg Cholecalciferol (Vitamin D 5,000 Unit Cap) 5,000 unit PO DAILY [facility] Last Admin: 11/14/21 08:54 Dose: 5,000 unit Docusate Sodium (Docusate Na 100 Mg Cap) 100 mg PO BID [facility] Last Admin: 11/14/21 08:54 Dose: 100 mg Hydralazine HCl (Hydralazine Hcl 20 Mg/Ml Vial) 10 mg IV Q6HP PRN PRN Reason: Titrate to SBP (MUST DEFINE) Last Admin: 11/13/21 00:16 Dose: 10 mg Lactulose (Lactulose 20 Gm/30 Ml Ucup) 20 gm PO BID PRN PRN Reason: CONSTIPATION Last Admin: 11/09/21 13:25 Dose: 20 gm Levothyroxine Sodium (Levothyroxine Sod 0.025 Mg Tab) 0.025 mg PO DAILYAC [facility] Last Admin: 11/14/21 05:32 Dose: 0.025 mg Losartan Potassium (Losartan Potassium 50 Mg Tablet) 50 mg PO DAILY [facility] Last Admin: 11/12/21 09:11 Dose: 50 mg Melatonin (Melatonin 5 Mg Tablet) 5 mg PO BEDTIME PRN PRN PRN Reason: INSOMNIA Last Admin: 11/13/21 20:17 Dose: 5 mg Nutritional Formula (Ensure High Protein 237 Ml Can) 237 ml PO DAILY [facility] Last Admin: 11/14/21 08:55 Dose: 237 ml Ondansetron HCl (Ondansetron 4 Mg/2 Ml Vial) 4 mg IV Q6HP PRN PRN Reason: NAUSEA / VOMITING Last Admin: 11/03/21 18:01 Dose: 4 mg Phenol (Phenol 1.4% Oral [place] 180ml) 2 appl MM Q4H PRN PRN Reason: SORE THROAT Last Admin: 11/03/21 07:59 Dose: 2 appl Polyethylene Glycol (Polyethyl Gly 3350 17 Gm/Dose) 17 gm PO DAILY PRN PRN Reason: CONSTIPATION Last Admin: 11/11/21 12:43 Dose: 17 gm Prasugrel (Prasugrel (Effient) 10 Mg Tab) 10 mg PO DAILY [facility] Last Admin: 11/14/21 08:55 Dose: 10 mg Sodium Chloride (Flush Normal Saline 10 Ml) 10 ml IV BID [facility] Last Admin: 11/14/21 08:55 Dose: 10 ml Vitamin B Complex/Vit C/Folic Acid (Multivitamins,Therapeut 1 Tab) 1 tab PO DAILY [facility] Last Admin: 11/14/21 08:54 Dose: 1 tab Assessment/ Plan: Nephrology No dyspnea No chest pain No acute events overnight Vitals, medications, blood work and imaging reviewed in the chart. NAD. NCAT. MMM. Normal respiratory effort. RRR. Abd ND. No C/C/E. No rash. AAO. Normal speech. ESRD -HD TIW HTN with CKD/ CHF -Continue Nifedipine ER 30 and titrate as needed Diastolic CHF, chronic -HD with UF -Low sodium diet Moderate malnutrition -Encourage nutrition -Consider Nepro -Continue MVI Anemia in CKD -Retacrit TIW CKD MBD -Continue Vitamin D3 -Continue Calcitriol -Tums with meals Slow transit constipation -Lactulose PRN Placement pending [place] on Saturday after dialysis Case reviewed with Dr. De Dios
[2021-11-14] MEDS ORDERED: EPOETIN ALFA 10,000 UNIT/ML VIAL SQ ONE (17:45)
[2021-11-14] MEDS: EPOETIN ALFA 10,000 UNIT/ML VIAL SQ SCH (20:38)
[2021-11-15] MEDS: HYDROCODONE/APAP 7.5/325 MG TAB PO PRN (02:19)
[2021-11-15 04:02] LABS: AST/SGOT 16 U/L (15-37); Albumin 2.2 g/dL (3.4-5.0); Alkaline Phosphatase 86 U/L (45-117); BUN Blood Urea Nitrogen 37 mg/dL (7-18); Bicarbonate 29 mmol/L (21-32); Bilirubin Total 0.7 mg/dL (0.2-1.0); Glomerular Filtration Rate 9 ml/min (=/>90); Glucose Level 114 mg/dL (74-106); Potassium 4.5 mmol/L (3.5-5.1); Protein, Total 5.2 g/dL (6.4-8.2); Sodium Level 136 mmol/L (136-145)
[2021-11-15 04:10] LABS: ALT/SGPT < 10 U/L (12-78)
[2021-11-15] MEDS: LEVOTHYROXINE SOD 0.025 MG TAB PO SCH (05:21)
--- NOTE | 2021-11-15 06:33 | P.PN ---
Date of Service: 11/15/21 Subjective: no acute events overnight ROS: 10 point ROS as noted above, otherwise negative Physical exam GEN: Alert, oriented, NAD CV: Regular rate and rhythm, no edema Pulm: non-labored respirations on room air ABD: Soft, nontender, nondistended MSK: LLE distal sensation intact, no swelling Neuro: Normal speech, normal affect Problem List Left intertrochanteric femur fracture s/p ORIF ESRD on HD Chronic diastolic congestive heart failure Hypertension CVA/PAD Hyperlipidemia s/p ORIF 11/01 tolerating diet PT consulted - limited mobility, recommended SNF; pending approvals - delayed due to COVID positive pain medication as needed nephrology consulted for HD continue anti-hypertensives DVT prophylaxis - discussed with cardiology, continue effient with low dose eliquis, hold aspirin agreeable to SNF Code: full Dispo: SNF, saturday Time Spent Managing Pts Care (In Minutes): 35
[2021-11-15] MEDS: ENSURE HIGH PROTEIN 237 ML CAN PO SCH (12:35)
[2021-11-15] MEDS: ONDANSETRON 4 MG/2 ML VIAL IV PRN (12:35)
[2021-11-15] MEDS: NIFEDIPINE XL 30 MG TABLET PO SCH (13:26)
[2021-11-15] MEDS: PRASUGREL (EFFIENT) 10 MG TAB PO SCH (13:26)
[2021-11-15] MEDS: LOSARTAN POTASSIUM 50 MG TABLET PO SCH ×2 (13:27→20:18)
[2021-11-15] MEDS: MULTIVITAMINS,THERAPEUT 1 TAB PO SCH (13:27)
[2021-11-15] MEDS: VITAMIN D 5,000 UNIT CAP PO SCH (13:27)
[2021-11-15] MEDS: DOCUSATE NA 100 MG CAP PO SCH ×2 (13:27→20:19)
[2021-11-15] MEDS: APIXABAN 2.5 MG TABLET PO SCH ×2 (13:28→20:19)
[2021-11-15] MEDS: carvediloL 6.25 MG TAB PO SCH ×2 (13:28→20:18)
[2021-11-15] MEDS: CALCIUM CARB 500MG/VIT D 200 IU TAB PO SCH ×2 (13:28→16:31)
[2021-11-15] MEDS: CALCITROL 0.25 MCG CAP PO SCH (13:28)
[2021-11-15] MEDS: EPOETIN ALFA 10,000 UNIT/ML VIAL SQ SCH (16:31)
--- NOTE | 2021-11-15 16:36 | P.PN ---
Date of Service: 11/15/21 Nephrology note: Pt seen through isolation window post HD, no acute events, tolerated HD without issues Vitals, labs, imaging reviewed in EMR Physical Examination Prior exam General: Alert, NAD HEENT: Atraumatic, Normocephalic, EOMI Neck: Supple Respiratory: Clear to auscultation bilaterally, Normal air movement Cardiovascular: No edema, Normal pulses, Regular rate/rhythm Gastrointestinal: Normal bowel sounds, Soft and benign, Non-distended Musculoskeletal: Other (Reduced Lt leg ROM due to pain, fracture), Lt leg lateral thigh surgical incision covered with dressing Gaffney removed Integumentary: No rashes Neurological: Normal speech, Normal affect, awake, alert but with some confusion 1. ESRD 2. Chronic HTN 3. Left hip intertrochanteric fracture 4. Anemia 2nd to CKD, other 5. 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 Abnormality of albumin -Cont iHD MWF for now, can return to OP schedule on discharge. -BP has been elevated/labile, added ARB to her regimen, did raise dose. No signs of gross fluid overload. Monitor -Did place on Ca carbonate + Vit D, did resume active Vit D as indicated. -Hb last week was improving and did increase by > 1 g/dl so did hold further NICKI dosing Fri but counts back down < 9 so scheduled NICKI therapy reordered by Dr. Porter Remains on Eliquis. -Encourage protein supplementation, ask readers' advisory service librarian to monitor oral intake. Santos Escalona MD, [facility]
[2021-11-16] MEDS: MELATONIN 5 MG TABLET PO PRN ×2 (00:20→21:26)
[2021-11-16 03:40] LABS: Hematocrit 30.3 % (36.0-45.0); MCV 90.1 fL (80-100); MPV 6.9 fL (7.6-11.3); RBC Red Blood Cell Count 3.37 M/uL (3.86-4.86)
[2021-11-16 03:54] LABS: Albumin 2.2 g/dL (3.4-5.0); Phosphorus 4.1 mg/dL (2.5-4.9); Potassium 4.6 mmol/L (3.5-5.1)
[2021-11-16] MEDS: LOSARTAN POTASSIUM 50 MG TABLET PO SCH ×2 (04:55→21:26)
[2021-11-16] MEDS: LEVOTHYROXINE SOD 0.025 MG TAB PO SCH (06:20)
--- NOTE | 2021-11-16 06:30 | P.PN ---
Date of Service: 11/16/21 Subjective: no acute events pain tolerable, ambulating with walker ,slowly no new symptoms/complaints tolerating diet ROS: 10 point ROS as noted above, otherwise negative Physical exam GEN: Alert, oriented, NAD CV: Regular rate and rhythm, no edema Pulm: non-labored respirations on room air MSK: LLE distal sensation intact, no swelling Neuro: Normal speech, normal affect Problem List Left intertrochanteric femur fracture s/p ORIF ESRD on HD Chronic diastolic congestive heart failure Hypertension CVA/PAD Hyperlipidemia s/p ORIF 11/01 tolerating diet PT consulted - limited mobility, recommended SNF - approved, but delayed due to COVID+ pain medication as needed nephrology consulted for HD continue anti-hypertensives DVT prophylaxis - discussed with cardiology, continue effient with low dose eliquis, hold aspirin Code: full Dispo: SNF, tomorrow after dialysis Time Spent Managing Pts Care (In Minutes): 35
[2021-11-16] MEDS: PRASUGREL (EFFIENT) 10 MG TAB PO SCH (08:34)
[2021-11-16] MEDS: carvediloL 12.5 MG TAB PO SCH ×2 (08:34→21:26)
[2021-11-16] MEDS: DOCUSATE NA 100 MG CAP PO SCH ×2 (08:35→21:26)
[2021-11-16] MEDS: NIFEDIPINE XL 60 MG TABLET PO SCH (08:35)
[2021-11-16] MEDS: CALCITROL 0.25 MCG CAP PO SCH (08:35)
[2021-11-16] MEDS: VITAMIN D 5,000 UNIT CAP PO SCH (08:35)
[2021-11-16] MEDS: MULTIVITAMINS,THERAPEUT 1 TAB PO SCH (08:35)
[2021-11-16] MEDS: APIXABAN 2.5 MG TABLET PO SCH ×2 (08:35→21:26)
[2021-11-16] MEDS: ENSURE HIGH PROTEIN 237 ML CAN PO SCH (08:35)
[2021-11-16] MEDS: CALCIUM CARB 500MG/VIT D 200 IU TAB PO SCH ×2 (08:35→17:13)
--- NOTE | 2021-11-16 10:10 | P.PN ---
Date of Service: 11/16/21 Vital Signs Temp Pulse Resp BP Pulse Ox 97.3 F 70 18 185/77 H 98 11/16/21 08:00 11/16/21 08:35 11/16/21 08:00 11/16/21 08:35 11/16/21 08:00 Medications Hydrocodone Bitart/Acetaminophen (Hydrocodone/Apap 7.5/325 Mg Tab) 1 tab PO Q4H PRN PRN Reason: Pain scale 8-10 (Severe) Last Admin: 11/15/21 02:19 Dose: 1 tab Amlodipine Besylate (Amlodipine 10 Mg Tab) 10 mg PO DAILY [facility] Last Admin: 11/13/21 08:44 Dose: 10 mg Apixaban (Apixaban 2.5 Mg Tablet) 2.5 mg PO BID [facility] Last Admin: 11/16/21 08:35 Dose: 2.5 mg Calcitriol (Calcitrol 0.25 Mcg Cap) 0.25 mcg PO DAILY [facility] Last Admin: 11/16/21 08:35 Dose: 0.25 mcg Calcium Carbonate (Calcium Carb 500mg/Vit D 200 Iu Tab) 1 tab PO BIDWM [facility] Last Admin: 11/16/21 08:35 Dose: 1 tab Carvedilol (Carvedilol 6.25 Mg Tab) 6.25 mg PO BID [facility] Last Admin: 11/15/21 20:18 Dose: 6.25 mg Cholecalciferol (Vitamin D 5,000 Unit Cap) 5,000 unit PO DAILY [facility] Last Admin: 11/16/21 08:35 Dose: 5,000 unit Docusate Sodium (Docusate Na 100 Mg Cap) 100 mg PO BID [facility] Last Admin: 11/16/21 08:35 Dose: 100 mg Hydralazine HCl (Hydralazine Hcl 20 Mg/Ml Vial) 10 mg IV Q6HP PRN PRN Reason: Titrate to SBP (MUST DEFINE) Last Admin: 11/13/21 00:16 Dose: 10 mg Lactulose (Lactulose 20 Gm/30 Ml Ucup) 20 gm PO BID PRN PRN Reason: CONSTIPATION Last Admin: 11/09/21 13:25 Dose: 20 gm Levothyroxine Sodium (Levothyroxine Sod 0.025 Mg Tab) 0.025 mg PO DAILYAC [facility] Last Admin: 11/16/21 06:20 Dose: 0.025 mg Losartan Potassium (Losartan Potassium 50 Mg Tablet) 50 mg PO DAILY [facility] Last Admin: 11/12/21 09:11 Dose: 50 mg Melatonin (Melatonin 5 Mg Tablet) 5 mg PO BEDTIME PRN PRN PRN Reason: INSOMNIA Last Admin: 11/16/21 00:20 Dose: 5 mg Nutritional Formula (Ensure High Protein 237 Ml Can) 237 ml PO DAILY [facility] Last Admin: 11/16/21 08:35 Dose: 237 ml Ondansetron HCl (Ondansetron 4 Mg/2 Ml Vial) 4 mg IV Q6HP PRN PRN Reason: NAUSEA / VOMITING Last Admin: 11/15/21 12:35 Dose: 4 mg Phenol (Phenol 1.4% Oral [place] 180ml) 2 appl MM Q4H PRN PRN Reason: SORE THROAT Last Admin: 11/03/21 07:59 Dose: 2 appl Polyethylene Glycol (Polyethyl Gly 3350 17 Gm/Dose) 17 gm PO DAILY PRN PRN Reason: CONSTIPATION Last Admin: 11/11/21 12:43 Dose: 17 gm Prasugrel (Prasugrel (Effient) 10 Mg Tab) 10 mg PO DAILY [facility] Last Admin: 11/16/21 08:34 Dose: 10 mg Sodium Chloride (Flush Normal Saline 10 Ml) 10 ml IV BID [facility] Last Admin: 11/16/21 08:35 Dose: 10 ml Vitamin B Complex/Vit C/Folic Acid (Multivitamins,Therapeut 1 Tab) 1 tab PO DAILY [facility] Last Admin: 11/16/21 08:35 Dose: 1 tab Assessment/ Plan: Nephrology No dyspnea No chest pain No acute events overnight Vitals, medications, blood work and imaging reviewed in the chart. NAD. NCAT. MMM. Normal respiratory effort. RRR. Abd ND. No C/C/E. No rash. AAO. Normal speech. ESRD -HD TIW HTN with CKD/ CHF -Continue Nifedipine ER 30 and titrate as needed Diastolic CHF, chronic -HD with UF -Low sodium diet Moderate malnutrition -Encourage nutrition -Consider Nepro -Continue MVI Anemia in CKD -Retacrit TIW CKD MBD -Continue Vitamin D3 -Continue Calcitriol -Tums with meals Slow transit constipation -Lactulose PRN Placement pending [place] Case reviewed with Dr. De Dios
[2021-11-16] MEDS: HYDRALAZINE HCL 20 MG/ML VIAL IV PRN (11:53)
[2021-11-16] MEDS: ACETAMINOPHEN 500 MG TAB PO PRN (15:03)
[2021-11-17] MEDS: HYDROCODONE/APAP 7.5/325 MG TAB PO PRN (00:20)
[2021-11-17] MEDS: ACETAMINOPHEN 500 MG TAB PO PRN (04:36)
[2021-11-17] MEDS: LEVOTHYROXINE SOD 0.025 MG TAB PO SCH (05:56)
[2021-11-17] MEDS: PRASUGREL (EFFIENT) 10 MG TAB PO SCH (09:00)
[2021-11-17] MEDS: ENSURE HIGH PROTEIN 237 ML CAN PO SCH (09:00)
[2021-11-17] MEDS: LOSARTAN POTASSIUM 50 MG TABLET PO SCH ×2 (12:05→21:05)
[2021-11-17] MEDS: NIFEDIPINE XL 60 MG TABLET PO SCH (12:05)
[2021-11-17] MEDS: CALCIUM CARB 500MG/VIT D 200 IU TAB PO SCH ×2 (12:06→17:27)
[2021-11-17] MEDS: VITAMIN D 5,000 UNIT CAP PO SCH (12:06)
[2021-11-17] MEDS: DOCUSATE NA 100 MG CAP PO SCH ×2 (12:06→21:05)
[2021-11-17] MEDS: APIXABAN 2.5 MG TABLET PO SCH ×2 (12:06→21:05)
[2021-11-17] MEDS: CALCITROL 0.25 MCG CAP PO SCH (12:06)
[2021-11-17] MEDS: carvediloL 12.5 MG TAB PO SCH ×2 (12:06→21:05)
[2021-11-17] MEDS: MULTIVITAMINS,THERAPEUT 1 TAB PO SCH (12:07)
[2021-11-17] MEDS: HYDRALAZINE HCL 20 MG/ML VIAL IV PRN (15:55)
[2021-11-17] MEDS: EPOETIN ALFA 10,000 UNIT/ML VIAL SQ SCH (17:27)
[2021-11-17] MEDS: MELATONIN 5 MG TABLET PO PRN (21:05)
--- NOTE | 2021-11-17 22:10 | P.PN ---
Date of Service: 11/17/21 Subjective: no acute events stable ROS: 10 point ROS as noted above, otherwise negative Physical exam GEN: Alert, oriented, NAD CV: Regular rate and rhythm, no edema Pulm: non-labored respirations on room air MSK: LLE distal sensation intact, no swelling Integumentary: dressing c/d/i Neuro: Normal speech, normal affect Problem List Left intertrochanteric femur fracture s/p ORIF ESRD on HD Chronic diastolic congestive heart failure Hypertension CVA/PAD Hyperlipidemia s/p ORIF 11/01 tolerating diet PT consulted - limited mobility, recommended SNF - approved, but delayed due to COVID+ pain medication as needed nephrology consulted for HD continue anti-hypertensives DVT prophylaxis - discussed with cardiology, continue effient with low dose eliquis, hold aspirin patient was to be discharged to SNF after HD today, however, SNF was not ready to receive patient Code: full Dispo: SNF, once approved/.ready for patient Time Spent Managing Pts Care (In Minutes): 35
[2021-11-18] MEDS: HYDROCODONE/APAP 7.5/325 MG TAB PO PRN ×3 (01:52→21:19)
[2021-11-18] MEDS: HYDRALAZINE HCL 20 MG/ML VIAL IV PRN ×2 (04:43→16:29)
[2021-11-18] MEDS: LEVOTHYROXINE SOD 0.025 MG TAB PO SCH (06:21)
--- NOTE | 2021-11-18 06:37 | P.PN ---
Date of Service: 11/18/21 Subjective: no acute events overnight pain tolerable, pain medication helps tolerating PO voiding without difficulty no new symptoms ROS: 10 point ROS as noted above, otherwise negative Physical exam GEN: Alert, oriented, NAD CV: Regular rate and rhythm, no edema Pulm: non-labored respirations on room air MSK: LLE distal sensation intact, no contractures Neuro: Normal speech, normal affect Problem List Left intertrochanteric femur fracture s/p ORIF ESRD on HD Chronic diastolic congestive heart failure Hypertension CVA/PAD Hyperlipidemia s/p ORIF 11/01 tolerating diet pain tolerable with medication limited mobility, working with PT, recommended SNF - approved, but delayed due to COVID+ nephrology consulted for HD continue anti-hypertensives - adjusted by nephrology patient remains hypertensive DVT prophylaxis - discussed with cardiology, continue effient with low dose eliquis, hold aspirin Hospitalization prolonged secondary to iniital delay when patient was found to be COVID+, 2nd delay when SNF was not ready to receive patient Code: full Dispo: SNF, once approved/ready for patient Time Spent Managing Pts Care (In Minutes): 35
[2021-11-18] MEDS: ENSURE HIGH PROTEIN 237 ML CAN PO SCH (09:00)
[2021-11-18] MEDS: NIFEDIPINE XL 60 MG TABLET PO SCH ×2 (09:12→21:20)
[2021-11-18] MEDS: DOCUSATE NA 100 MG CAP PO SCH ×2 (09:12→21:20)
[2021-11-18] MEDS: carvediloL 12.5 MG TAB PO SCH ×2 (09:13→21:20)
[2021-11-18] MEDS: APIXABAN 2.5 MG TABLET PO SCH ×2 (09:13→21:20)
[2021-11-18] MEDS: CALCITROL 0.25 MCG CAP PO SCH (09:13)
[2021-11-18] MEDS: LOSARTAN POTASSIUM 50 MG TABLET PO SCH ×2 (09:13→21:20)
[2021-11-18] MEDS: CALCIUM CARB 500MG/VIT D 200 IU TAB PO SCH ×2 (09:14→16:29)
[2021-11-18] MEDS: MULTIVITAMINS,THERAPEUT 1 TAB PO SCH (09:14)
[2021-11-18] MEDS: VITAMIN D 5,000 UNIT CAP PO SCH (09:14)
[2021-11-18] MEDS: PRASUGREL (EFFIENT) 10 MG TAB PO SCH (10:51)
[2021-11-18] MEDS: ACETAMINOPHEN 500 MG TAB PO PRN ×2 (18:21→23:50)
[2021-11-18] MEDS: MELATONIN 5 MG TABLET PO PRN (23:50)
[2021-11-19] MEDS: LEVOTHYROXINE SOD 0.025 MG TAB PO SCH (06:08)
[2021-11-19] MEDS: CALCIUM CARB 500MG/VIT D 200 IU TAB PO SCH ×2 (08:00→17:30)
--- NOTE | 2021-11-19 08:22 | P.PN ---
Date of Service: 11/17/21 Vital Signs Temp Pulse Resp BP Pulse Ox 97.7 F 64 14 176/88 H 98 11/19/21 07:54 11/19/21 07:54 11/19/21 07:54 11/19/21 07:54 11/19/21 07:54 Medications Acetaminophen (Acetaminophen 500 Mg Tab) 500 mg PO Q6H PRN PRN Reason: Pain scale 2-4 (Mild) Last Admin: 11/18/21 23:50 Dose: 500 mg Hydrocodone Bitart/Acetaminophen (Hydrocodone/Apap 7.5/325 Mg Tab) 1 tab PO Q4H PRN PRN Reason: Pain scale 8-10 (Severe) Last Admin: 11/18/21 21:19 Dose: 1 tab Apixaban (Apixaban 2.5 Mg Tablet) 2.5 mg PO BID [facility] Last Admin: 11/18/21 21:20 Dose: 2.5 mg Calcitriol (Calcitrol 0.25 Mcg Cap) 0.25 mcg PO DAILY [facility] Last Admin: 11/18/21 09:13 Dose: 0.25 mcg Calcium Carbonate (Calcium Carb 500mg/Vit D 200 Iu Tab) 1 tab PO BIDWM [facility] Last Admin: 11/18/21 16:29 Dose: 1 tab Carvedilol (Carvedilol 12.5 Mg Tab) 12.5 mg PO BID [facility] Last Admin: 11/18/21 21:20 Dose: 12.5 mg Cholecalciferol (Vitamin D 5,000 Unit Cap) 5,000 unit PO DAILY [facility] Last Admin: 11/18/21 09:14 Dose: 5,000 unit Docusate Sodium (Docusate Na 100 Mg Cap) 100 mg PO BID [facility] Last Admin: 11/18/21 21:20 Dose: 100 mg Epoetin Odin (Epoetin Odin 10,000 Unit/Ml Vial) 10,000 unit SQ M,W,F [facility] Last Admin: 11/17/21 17:27 Dose: 10,000 unit Heparin Sodium (Porcine) (Heparin 1,000 Unit/Ml Vial) 4,000 unit IV EVERY HD PRN PRN Reason: AFTER EACH Last Admin: 11/17/21 11:40 Dose: 4,000 unit Hydralazine HCl (Hydralazine Hcl 20 Mg/Ml Vial) 10 mg IV Q6HP PRN PRN Reason: Titrate to SBP (MUST DEFINE) Last Admin: 11/18/21 16:29 Dose: 10 mg Lactulose (Lactulose 20 Gm/30 Ml Ucup) 20 gm PO BID PRN PRN Reason: CONSTIPATION - 2ND LINE Last Admin: 11/09/21 13:25 Dose: 20 gm Levothyroxine Sodium (Levothyroxine Sod 0.025 Mg Tab) 0.025 mg PO DAILYAC [facility] Last Admin: 11/19/21 06:08 Dose: 0.025 mg Losartan Potassium (Losartan Potassium 50 Mg Tablet) 50 mg PO BID [facility] Last Admin: 11/18/21 21:20 Dose: 50 mg Melatonin (Melatonin 5 Mg Tablet) 5 mg PO BEDTIME PRN PRN PRN Reason: INSOMNIA Last Admin: 11/18/21 23:50 Dose: 5 mg Nifedipine (Nifedipine Xl 60 Mg Tablet) 60 mg PO BID [facility] Last Admin: 11/18/21 21:20 Dose: 60 mg Nutritional Formula (Ensure High Protein 237 Ml Can) 237 ml PO DAILY [facility] Last Admin: 11/18/21 09:00 Dose: Not Given Ondansetron HCl (Ondansetron 4 Mg/2 Ml Vial) 4 mg IV Q6HP PRN PRN Reason: NAUSEA / VOMITING Last Admin: 11/15/21 12:35 Dose: 4 mg Phenol (Phenol 1.4% Oral [place] 180ml) 2 appl MM Q4H PRN PRN Reason: SORE THROAT Last Admin: 11/03/21 07:59 Dose: 2 appl Polyethylene Glycol (Polyethyl Gly 3350 17 Gm/Dose) 17 gm PO DAILY PRN PRN Reason: CONSTIPATION - 1ST LINE Last Admin: 11/11/21 12:43 Dose: 17 gm Prasugrel (Prasugrel (Effient) 10 Mg Tab) 10 mg PO DAILY [facility] Last Admin: 11/18/21 10:51 Dose: 10 mg Sodium Chloride (Flush Normal Saline 10 Ml) 10 ml IV BID [facility] Last Admin: 11/18/21 21:20 Dose: 10 ml Vitamin B Complex/Vit C/Folic Acid (Multivitamins,Therapeut 1 Tab) 1 tab PO DAILY [facility] Last Admin: 11/18/21 09:14 Dose: 1 tab Assessment/ Plan: Nephrology No dyspnea No chest pain No acute events overnight Vitals, medications, blood work and imaging reviewed in the chart. NAD. NCAT. MMM. Normal respiratory effort. RRR. Abd ND. No C/C/E. No rash. AAO. Normal speech. ESRD -HD TIW HTN with CKD/ CHF -Continue Nifedipine ER 30 and titrate as needed Diastolic CHF, chronic -HD with UF -Low sodium diet Moderate malnutrition -Encourage nutrition -Consider Nepro -Continue MVI Anemia in CKD -Retacrit TIW CKD MBD -Continue Vitamin D3 -Continue Calcitriol -Tums with meals Slow transit constipation -Lactulose PRN Placement pending [place] Case reviewed with Dr. De Dios
[2021-11-19] MEDS: HYDROCODONE/APAP 7.5/325 MG TAB PO PRN (08:32)
[2021-11-19] MEDS: APIXABAN 2.5 MG TABLET PO SCH ×2 (08:33→22:17)
[2021-11-19] MEDS: MULTIVITAMINS,THERAPEUT 1 TAB PO SCH (08:33)
[2021-11-19] MEDS: PRASUGREL (EFFIENT) 10 MG TAB PO SCH (08:35)
[2021-11-19] MEDS: VITAMIN D 5,000 UNIT CAP PO SCH (08:35)
[2021-11-19] MEDS: carvediloL 12.5 MG TAB PO SCH ×2 (08:35→22:16)
[2021-11-19] MEDS: NIFEDIPINE XL 60 MG TABLET PO SCH ×2 (08:36→22:17)
[2021-11-19] MEDS: LOSARTAN POTASSIUM 50 MG TABLET PO SCH ×2 (08:36→22:18)
[2021-11-19] MEDS: CALCITROL 0.25 MCG CAP PO SCH (08:36)
[2021-11-19] MEDS: DOCUSATE NA 100 MG CAP PO SCH ×2 (08:37→22:16)
[2021-11-19] MEDS: ENSURE HIGH PROTEIN 237 ML CAN PO SCH (08:37)
--- NOTE | 2021-11-19 08:48 | P.PN ---
Date of Service: 11/18/21 Vital Signs Temp Pulse Resp BP Pulse Ox 97.7 F 64 14 176/88 H 98 11/19/21 07:54 11/19/21 08:36 11/19/21 08:32 11/19/21 08:36 11/19/21 08:32 Medications Acetaminophen (Acetaminophen 500 Mg Tab) 500 mg PO Q6H PRN PRN Reason: Pain scale 2-4 (Mild) Last Admin: 11/18/21 23:50 Dose: 500 mg Hydrocodone Bitart/Acetaminophen (Hydrocodone/Apap 7.5/325 Mg Tab) 1 tab PO Q4H PRN PRN Reason: Pain scale 8-10 (Severe) Last Admin: 11/19/21 08:32 Dose: 1 tab Apixaban (Apixaban 2.5 Mg Tablet) 2.5 mg PO BID [facility] Last Admin: 11/19/21 08:33 Dose: 2.5 mg Calcitriol (Calcitrol 0.25 Mcg Cap) 0.25 mcg PO DAILY [facility] Last Admin: 11/19/21 08:36 Dose: 0.25 mcg Calcium Carbonate (Calcium Carb 500mg/Vit D 200 Iu Tab) 1 tab PO BIDWM [facility] Last Admin: 11/19/21 08:00 Dose: 1 tab Carvedilol (Carvedilol 12.5 Mg Tab) 12.5 mg PO BID [facility] Last Admin: 11/19/21 08:35 Dose: 12.5 mg Cholecalciferol (Vitamin D 5,000 Unit Cap) 5,000 unit PO DAILY [facility] Last Admin: 11/19/21 08:35 Dose: 5,000 unit Docusate Sodium (Docusate Na 100 Mg Cap) 100 mg PO BID [facility] Last Admin: 11/19/21 08:37 Dose: 100 mg Epoetin Odin (Epoetin Odin 10,000 Unit/Ml Vial) 10,000 unit SQ M,W,F [facility] Last Admin: 11/17/21 17:27 Dose: 10,000 unit Heparin Sodium (Porcine) (Heparin 1,000 Unit/Ml Vial) 4,000 unit IV EVERY HD PRN PRN Reason: AFTER EACH Last Admin: 11/17/21 11:40 Dose: 4,000 unit Hydralazine HCl (Hydralazine Hcl 20 Mg/Ml Vial) 10 mg IV Q6HP PRN PRN Reason: Titrate to SBP (MUST DEFINE) Last Admin: 11/18/21 16:29 Dose: 10 mg Lactulose (Lactulose 20 Gm/30 Ml Ucup) 20 gm PO BID PRN PRN Reason: CONSTIPATION - 2ND LINE Last Admin: 11/09/21 13:25 Dose: 20 gm Levothyroxine Sodium (Levothyroxine Sod 0.025 Mg Tab) 0.025 mg PO DAILYAC [facility] Last Admin: 11/19/21 06:08 Dose: 0.025 mg Losartan Potassium (Losartan Potassium 50 Mg Tablet) 50 mg PO BID [facility] Last Admin: 11/19/21 08:36 Dose: 50 mg Melatonin (Melatonin 5 Mg Tablet) 5 mg PO BEDTIME PRN PRN PRN Reason: INSOMNIA Last Admin: 11/18/21 23:50 Dose: 5 mg Nifedipine (Nifedipine Xl 60 Mg Tablet) 60 mg PO BID [facility] Last Admin: 11/19/21 08:36 Dose: 60 mg Nutritional Formula (Ensure High Protein 237 Ml Can) 237 ml PO DAILY [facility] Last Admin: 11/19/21 08:37 Dose: 237 ml Ondansetron HCl (Ondansetron 4 Mg/2 Ml Vial) 4 mg IV Q6HP PRN PRN Reason: NAUSEA / VOMITING Last Admin: 11/15/21 12:35 Dose: 4 mg Phenol (Phenol 1.4% Oral [place] 180ml) 2 appl MM Q4H PRN PRN Reason: SORE THROAT Last Admin: 11/03/21 07:59 Dose: 2 appl Polyethylene Glycol (Polyethyl Gly 3350 17 Gm/Dose) 17 gm PO DAILY PRN PRN Reason: CONSTIPATION - 1ST LINE Last Admin: 11/11/21 12:43 Dose: 17 gm Prasugrel (Prasugrel (Effient) 10 Mg Tab) 10 mg PO DAILY [facility] Last Admin: 11/19/21 08:35 Dose: 10 mg Sodium Chloride (Flush Normal Saline 10 Ml) 10 ml IV BID [facility] Last Admin: 11/19/21 08:37 Dose: 10 ml Vitamin B Complex/Vit C/Folic Acid (Multivitamins,Therapeut 1 Tab) 1 tab PO DAILY [facility] Last Admin: 11/19/21 08:33 Dose: 1 tab Assessment/ Plan: Nephrology No dyspnea No chest pain No acute events overnight Vitals, medications, blood work and imaging reviewed in the chart. NAD. NCAT. MMM. Normal respiratory effort. RRR. Abd ND. No C/C/E. No rash. AAO. Normal speech. ESRD -HD TIW HTN with CKD/ CHF -Increase Nifedipine ER 60 BID Diastolic CHF, chronic -HD with UF -Low sodium diet Moderate malnutrition -Encourage nutrition -Consider Nepro -Continue MVI Anemia in CKD -Retacrit TIW CKD MBD -Continue Vitamin D3 -Continue Calcitriol -Tums with meals Slow transit constipation -Lactulose PRN Placement pending [place] Case reviewed with Dr. De Dios
--- NOTE | 2021-11-19 17:26 | P.PN ---
Date of Service: 11/19/21 Subjective: no acute events overnight reports some shoulder / SCM pain after ambulating with walker yesterday and today warm compress helped somewhat no pain in shoulder joint otherwise ok ROS: 10 point ROS as noted above, otherwise negative Physical exam GEN: Alert, oriented, NAD CV: Regular rate and rhythm, no edema Pulm: non-labored respirations on room air MSK: LLE distal sensation intact, R sternocleidomastoid tenderness on palpation, full ROM of R shoulder without popping/clicking, intact distal RUE sensation Neuro: Normal speech, normal affect Problem List Left intertrochanteric femur fracture s/p ORIF ESRD on HD Chronic diastolic congestive heart failure Hypertension CVA/PAD Hyperlipidemia s/p ORIF 11/01 tolerating diet pain tolerable with medication limited mobility (improving), working with PT, recommended SNF - approved, but delayed due to COVID+ nephrology consulted for HD continue anti-hypertensives - adjusted by nephrology DVT prophylaxis - discussed with cardiology, continue effient with low dose eliquis, hold aspirin Hospitalization prolonged secondary to iniital delay when patient was found to be COVID+, 2nd delay when SNF was not ready to receive patient Code: full Dispo: SNF, once approved/ready for patient; medically cleared Time Spent Managing Pts Care (In Minutes): 35
--- NOTE | 2021-11-19 19:53 | P.PN ---
Date of Service: 11/19/21 Vital Signs Temp Pulse Resp BP Pulse Ox 97.5 F 70 14 164/65 H 98 11/19/21 15:49 11/19/21 15:49 11/19/21 15:49 11/19/21 15:49 11/19/21 15:49 Medications Acetaminophen (Acetaminophen 500 Mg Tab) 500 mg PO Q6H PRN PRN Reason: Pain scale 2-4 (Mild) Last Admin: 11/18/21 23:50 Dose: 500 mg Hydrocodone Bitart/Acetaminophen (Hydrocodone/Apap 7.5/325 Mg Tab) 1 tab PO Q4H PRN PRN Reason: Pain scale 8-10 (Severe) Last Admin: 11/19/21 08:32 Dose: 1 tab Apixaban (Apixaban 2.5 Mg Tablet) 2.5 mg PO BID [facility] Last Admin: 11/19/21 08:33 Dose: 2.5 mg Calcitriol (Calcitrol 0.25 Mcg Cap) 0.25 mcg PO DAILY [facility] Last Admin: 11/19/21 08:36 Dose: 0.25 mcg Calcium Carbonate (Calcium Carb 500mg/Vit D 200 Iu Tab) 1 tab PO BIDWM [facility] Last Admin: 11/19/21 17:30 Dose: 1 tab Carvedilol (Carvedilol 12.5 Mg Tab) 12.5 mg PO BID [facility] Last Admin: 11/19/21 08:35 Dose: 12.5 mg Cholecalciferol (Vitamin D 5,000 Unit Cap) 5,000 unit PO DAILY [facility] Last Admin: 11/19/21 08:35 Dose: 5,000 unit Docusate Sodium (Docusate Na 100 Mg Cap) 100 mg PO BID [facility] Last Admin: 11/19/21 08:37 Dose: 100 mg Epoetin Odin (Epoetin Odin 10,000 Unit/Ml Vial) 10,000 unit SQ M,W,F [facility] Last Admin: 11/17/21 17:27 Dose: 10,000 unit Heparin Sodium (Porcine) (Heparin 1,000 Unit/Ml Vial) 4,000 unit IV EVERY HD PRN PRN Reason: AFTER EACH Last Admin: 11/17/21 11:40 Dose: 4,000 unit Hydralazine HCl (Hydralazine Hcl 20 Mg/Ml Vial) 10 mg IV Q6HP PRN PRN Reason: Titrate to SBP (MUST DEFINE) Last Admin: 11/18/21 16:29 Dose: 10 mg Lactulose (Lactulose 20 Gm/30 Ml Ucup) 20 gm PO BID PRN PRN Reason: CONSTIPATION - 2ND LINE Last Admin: 11/09/21 13:25 Dose: 20 gm Levothyroxine Sodium (Levothyroxine Sod 0.025 Mg Tab) 0.025 mg PO DAILYAC [facility] Last Admin: 11/19/21 06:08 Dose: 0.025 mg Losartan Potassium (Losartan Potassium 50 Mg Tablet) 50 mg PO BID [facility] Last Admin: 11/19/21 08:36 Dose: 50 mg Melatonin (Melatonin 5 Mg Tablet) 5 mg PO BEDTIME PRN PRN PRN Reason: INSOMNIA Last Admin: 11/18/21 23:50 Dose: 5 mg Nifedipine (Nifedipine Xl 60 Mg Tablet) 60 mg PO BID [facility] Last Admin: 11/19/21 08:36 Dose: 60 mg Nutritional Formula (Ensure High Protein 237 Ml Can) 237 ml PO DAILY [facility] Last Admin: 11/19/21 08:37 Dose: 237 ml Ondansetron HCl (Ondansetron 4 Mg/2 Ml Vial) 4 mg IV Q6HP PRN PRN Reason: NAUSEA / VOMITING Last Admin: 11/15/21 12:35 Dose: 4 mg Phenol (Phenol 1.4% Oral [place] 180ml) 2 appl MM Q4H PRN PRN Reason: SORE THROAT Last Admin: 11/03/21 07:59 Dose: 2 appl Polyethylene Glycol (Polyethyl Gly 3350 17 Gm/Dose) 17 gm PO DAILY PRN PRN Reason: CONSTIPATION - 1ST LINE Last Admin: 11/11/21 12:43 Dose: 17 gm Prasugrel (Prasugrel (Effient) 10 Mg Tab) 10 mg PO DAILY [facility] Last Admin: 11/19/21 08:35 Dose: 10 mg Sodium Chloride (Flush Normal Saline 10 Ml) 10 ml IV BID [facility] Last Admin: 11/19/21 08:37 Dose: 10 ml Vitamin B Complex/Vit C/Folic Acid (Multivitamins,Therapeut 1 Tab) 1 tab PO DAILY [facility] Last Admin: 11/19/21 08:33 Dose: 1 tab Assessment/ Plan: Nephrology No dyspnea No chest pain Neck pain worse after using her walker No acute events overnight Vitals, medications, blood work and imaging reviewed in the chart. NAD. NCAT. MMM. Normal respiratory effort. RRR. Abd ND. No C/C/E. No rash. AAO. Normal speech. ESRD -HD TIW HTN with CKD/ CHF -Continue Nifedipine ER 60 BID Diastolic CHF, chronic -HD with UF -Low sodium diet Moderate malnutrition -Encourage nutrition -Consider Nepro -Continue MVI Anemia in CKD -Retacrit TIW CKD MBD -Continue Vitamin D3 -Continue Calcitriol -Tums with meals Slow transit constipation -Lactulose PRN Neck pain -PT as tolerated Placement pending [facility] Case reviewed with Dr. De Dios
[2021-11-19] MEDS: MELATONIN 5 MG TABLET PO PRN (22:18)
[2021-11-20 04:06] LABS: Hematocrit 30.9 % (36.0-45.0); MCV 89.3 fL (80-100); MPV 6.9 fL (7.6-11.3); RBC Red Blood Cell Count 3.46 M/uL (3.86-4.86)
[2021-11-20 04:41] LABS: Albumin 2.2 g/dL (3.4-5.0); Magnesium 2.4 mg/dL (1.8-2.4); Phosphorus 4.7 mg/dL (2.5-4.9); Potassium 3.9 mmol/L (3.5-5.1)
[2021-11-20 06:02] LABS: HBsAG Nonreactive (Nonreactive)
[2021-11-20] MEDS: LEVOTHYROXINE SOD 0.025 MG TAB PO SCH (06:15)
[2021-11-20] MEDS: ENSURE HIGH PROTEIN 237 ML CAN PO SCH (09:00)
[2021-11-20] MEDS: PRASUGREL (EFFIENT) 10 MG TAB PO SCH (09:00)
[2021-11-20] MEDS: CALCITROL 0.25 MCG CAP PO SCH (09:04)
[2021-11-20] MEDS: MULTIVITAMINS,THERAPEUT 1 TAB PO SCH (09:04)
[2021-11-20] MEDS: NIFEDIPINE XL 60 MG TABLET PO SCH ×2 (09:04→21:12)
[2021-11-20] MEDS: DOCUSATE NA 100 MG CAP PO SCH ×2 (09:04→21:12)
[2021-11-20] MEDS: carvediloL 12.5 MG TAB PO SCH ×2 (09:04→21:12)
[2021-11-20] MEDS: CALCIUM CARB 500MG/VIT D 200 IU TAB PO SCH ×2 (09:04→16:32)
[2021-11-20] MEDS: APIXABAN 2.5 MG TABLET PO SCH ×2 (09:05→21:12)
[2021-11-20] MEDS: VITAMIN D 5,000 UNIT CAP PO SCH (09:05)
[2021-11-20] MEDS: LOSARTAN POTASSIUM 50 MG TABLET PO SCH ×2 (09:05→21:11)
--- NOTE | 2021-11-20 11:05 | P.PN ---
Date of Service: 11/20/21 Vital Signs Temp Pulse Resp BP Pulse Ox 97.5 F 69 14 170/69 H 96 11/20/21 07:51 11/20/21 09:04 11/20/21 07:51 11/20/21 09:04 11/20/21 07:51 Medications Acetaminophen (Acetaminophen 500 Mg Tab) 500 mg PO Q6H PRN PRN Reason: Pain scale 2-4 (Mild) Last Admin: 11/18/21 23:50 Dose: 500 mg Hydrocodone Bitart/Acetaminophen (Hydrocodone/Apap 7.5/325 Mg Tab) 1 tab PO Q4H PRN PRN Reason: Pain scale 8-10 (Severe) Last Admin: 11/19/21 08:32 Dose: 1 tab Apixaban (Apixaban 2.5 Mg Tablet) 2.5 mg PO BID [facility] Last Admin: 11/20/21 09:05 Dose: 2.5 mg Calcitriol (Calcitrol 0.25 Mcg Cap) 0.25 mcg PO DAILY [facility] Last Admin: 11/20/21 09:04 Dose: 0.25 mcg Calcium Carbonate (Calcium Carb 500mg/Vit D 200 Iu Tab) 1 tab PO BIDWM [facility] Last Admin: 11/20/21 09:04 Dose: 1 tab Carvedilol (Carvedilol 12.5 Mg Tab) 12.5 mg PO BID [facility] Last Admin: 11/20/21 09:04 Dose: 12.5 mg Cholecalciferol (Vitamin D 5,000 Unit Cap) 5,000 unit PO DAILY [facility] Last Admin: 11/20/21 09:05 Dose: 5,000 unit Docusate Sodium (Docusate Na 100 Mg Cap) 100 mg PO BID [facility] Last Admin: 11/20/21 09:04 Dose: 100 mg Epoetin Odin (Epoetin Odin 10,000 Unit/Ml Vial) 10,000 unit SQ M,W,F [facility] Last Admin: 11/17/21 17:27 Dose: 10,000 unit Heparin Sodium (Porcine) (Heparin 1,000 Unit/Ml Vial) 4,000 unit IV EVERY HD PRN PRN Reason: AFTER EACH Last Admin: 11/17/21 11:40 Dose: 4,000 unit Hydralazine HCl (Hydralazine Hcl 20 Mg/Ml Vial) 10 mg IV Q6HP PRN PRN Reason: Titrate to SBP (MUST DEFINE) Last Admin: 11/18/21 16:29 Dose: 10 mg Lactulose (Lactulose 20 Gm/30 Ml Ucup) 20 gm PO BID PRN PRN Reason: CONSTIPATION - 2ND LINE Last Admin: 11/09/21 13:25 Dose: 20 gm Levothyroxine Sodium (Levothyroxine Sod 0.025 Mg Tab) 0.025 mg PO DAILYAC [facility] Last Admin: 11/20/21 06:15 Dose: 0.025 mg Losartan Potassium (Losartan Potassium 50 Mg Tablet) 50 mg PO BID [facility] Last Admin: 11/20/21 09:05 Dose: 50 mg Melatonin (Melatonin 5 Mg Tablet) 5 mg PO BEDTIME PRN PRN PRN Reason: INSOMNIA Last Admin: 11/19/21 22:18 Dose: 5 mg Nifedipine (Nifedipine Xl 60 Mg Tablet) 60 mg PO BID [facility] Last Admin: 11/20/21 09:04 Dose: 60 mg Nutritional Formula (Ensure High Protein 237 Ml Can) 237 ml PO DAILY [facility] Last Admin: 11/20/21 09:00 Dose: 237 ml Ondansetron HCl (Ondansetron 4 Mg/2 Ml Vial) 4 mg IV Q6HP PRN PRN Reason: NAUSEA / VOMITING Last Admin: 11/15/21 12:35 Dose: 4 mg Phenol (Phenol 1.4% Oral [place] 180ml) 2 appl MM Q4H PRN PRN Reason: SORE THROAT Last Admin: 11/03/21 07:59 Dose: 2 appl Polyethylene Glycol (Polyethyl Gly 3350 17 Gm/Dose) 17 gm PO DAILY PRN PRN Reason: CONSTIPATION - 1ST LINE Last Admin: 11/11/21 12:43 Dose: 17 gm Prasugrel (Prasugrel (Effient) 10 Mg Tab) 10 mg PO DAILY [facility] Last Admin: 11/20/21 09:00 Dose: 10 mg Sodium Chloride (Flush Normal Saline 10 Ml) 10 ml IV BID [facility] Last Admin: 11/20/21 09:00 Dose: 10 ml Vitamin B Complex/Vit C/Folic Acid (Multivitamins,Therapeut 1 Tab) 1 tab PO DAILY [facility] Last Admin: 11/20/21 09:04 Dose: 1 tab Assessment/ Plan: Nephrology No dyspnea No chest pain Neck pain better this morning No acute events overnight Vitals, medications, blood work and imaging reviewed in the chart. NAD. NCAT. MMM. Normal respiratory effort. RRR. Abd ND. No C/C/E. No rash. AAO. Normal speech. ESRD -HD TIW -Seen and examined on HD this morning HTN with CKD/ CHF -Continue Nifedipine ER 60 BID Diastolic CHF, chronic -HD with UF -Low sodium diet Moderate malnutrition -Encourage nutrition -Consider Nepro -Continue MVI Anemia in CKD -Retacrit TIW CKD MBD -Continue Vitamin D3 -Continue Calcitriol -Tums with meals Slow transit constipation -Lactulose PRN Neck pain -PT as tolerated Placement pending [facility]
[2021-11-20] MEDS: HYDROCODONE/APAP 5/325 MG TAB PO PRN (11:46)
[2021-11-20] MEDS ORDERED: CYCLOBENZAPRINE 10 MG TAB PO PRN (12:06)
[2021-11-20] MEDS: EPOETIN ALFA 10,000 UNIT/ML VIAL SQ SCH (16:32)
[2021-11-20] MEDS: MELATONIN 5 MG TABLET PO PRN (21:12)
[2021-11-20] MEDS: ACETAMINOPHEN 500 MG TAB PO PRN (21:12)
--- NOTE | 2021-11-20 23:56 | P.PN ---
Date of Service: 11/20/21 Subjective: no acute events overnight reports some shoulder / SCM pain after ambulating with walker in the past 2 days, still having some pain this morning pain medication helps temporarily, no pain in shoulder joint ROS: 10 point ROS as noted above, otherwise negative Physical exam GEN: Alert, oriented, NAD CV: Regular rate and rhythm, no edema Pulm: non-labored respirations on room air MSK: R sternocleidomastoid tenderness on palpation, full ROM of R shoulder without popping/clicking, intact distal RUE sensation Neuro: Normal speech, normal affect Problem List Left intertrochanteric femur fracture s/p ORIF ESRD on HD Chronic diastolic congestive heart failure Hypertension CVA/PAD Hyperlipidemia s/p ORIF 11/01 tolerating diet pain tolerable with medication limited mobility (improving), working with PT, recommended SNF - approved, but delayed due to COVID+ nephrology consulted for HD continue anti-hypertensives - adjusted by nephrology DVT prophylaxis - discussed with cardiology, continue effient with low dose eliquis, hold aspirin 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
[2021-11-21] MEDS: HYDROCODONE/APAP 5/325 MG TAB PO PRN (00:31)
[2021-11-21] MEDS: LEVOTHYROXINE SOD 0.025 MG TAB PO SCH (06:26)
[2021-11-21 07:57] VITALS: TEMP 97.5
[2021-11-21] MEDS: carvediloL 12.5 MG TAB PO SCH (08:15)
[2021-11-21] MEDS: CALCIUM CARB 500MG/VIT D 200 IU TAB PO SCH (08:15)
[2021-11-21] MEDS: DOCUSATE NA 100 MG CAP PO SCH (08:15)
[2021-11-21] MEDS: NIFEDIPINE XL 60 MG TABLET PO SCH (08:15)
[2021-11-21] MEDS: MULTIVITAMINS,THERAPEUT 1 TAB PO SCH (08:15)
[2021-11-21] MEDS: VITAMIN D 5,000 UNIT CAP PO SCH (08:15)
[2021-11-21] MEDS: LOSARTAN POTASSIUM 50 MG TABLET PO SCH (08:15)
[2021-11-21] MEDS: CALCITROL 0.25 MCG CAP PO SCH (08:15)
[2021-11-21] MEDS: APIXABAN 2.5 MG TABLET PO SCH (08:15)
[2021-11-21] MEDS: ENSURE HIGH PROTEIN 237 ML CAN PO SCH (08:16)
[2021-11-21] MEDS: PRASUGREL (EFFIENT) 10 MG TAB PO SCH (08:16)
[2021-11-21 08:40] VITALS: O2SAT 96
[2021-11-21] MEDS ORDERED: AMLODIPINE 5 MG TAB PO SCH (09:00)
--- NOTE | 2021-11-21 13:27 | P.DS ---
Admission Date: 10/31/21 Discharge Date: 11/21/21 Disposition: TRANSFER TO GROUP HOME Discharge Condition: FAIR Reason for Admission: Left hip fracture Brief History of Present Illness: 86-year-old female with history of ESRD on HD MWF, CVA, hypertension, hyperlipidemia presented to the emergency department after mechanical fall with injury to her left hip. She had an xray of her left hip performed which revealed a Left-sided intertrochanteric hip fracture. Ortho was consulted and pt admitted to the hospitalist service. Hospital Course: Diagnosis Left intertrochanteric femur fracture s/p ORIF ESRD on HD Chronic diastolic congestive heart failure Hypertension CVA/PAD Hyperlipidemia Admitted to the medical floor s/p ORIF 11/01 tolerating diet pain tolerable with medication She has limited mobility but has slowly improved. She is now able to ambulate with a walker. Skilled rehab recommended. Patient accepted to SNF today. nephrology consulted for HD, patient underwent routine hemodialysis Anti-hypertensives - adjusted by nephrology. Amlodipine replaced been nifedipine. Coreg and hydralazine added. Ibesartan titrate up to losartan 50 mg twice daily. DVT prophylaxis - discussed with cardiology, continue effient with low dose eliquis. Aspirin on hold Time Spent Managing Pts Care (In Minutes): 35 Vital Signs/Physical Exam: Temp Pulse Resp BP Pulse Ox 97.5 F 64 18 168/73 H 99 11/21/21 11:42 11/21/21 11:42 11/21/21 11:42 11/21/21 11:42 11/21/21 11:42 General: Alert, In no apparent distress, Oriented x3 HEENT: Mucous membr. moist/pink Neck: JVD not distended Respiratory: Clear to auscultation bilaterally, Normal air movement Cardiovascular: No edema, Regular rate/rhythm Capillary refill: <2 Seconds Gastrointestinal: Normal bowel sounds, Soft and benign, Non-distended, No tenderness Musculoskeletal: No swelling Integumentary: No rashes, No warmth Neurological: Normal strength at 5/5 x4 extr, Cranial nerves 3-12 intact Laboratory Data at Discharge: WBC 6.3 K/uL (4.3-10.9) 11/20/21 03:06 Hgb 10.2 g/dL (12.0-15.0) L 11/20/21 03:06 Hct 30.9 % (36.0-45.0) L 11/20/21 03:06 Plt Count 252 K/uL (152-406) 11/20/21 03:06 Sodium 139 mmol/L (136-145) 11/20/21 03:06 Potassium 3.9 mmol/L (3.5-5.1) 11/20/21 03:06 BUN 43 mg/dL (7-18) H 11/20/21 03:06 Creatinine 5.62 mg/dL (0.55-1.3) H* D 11/20/21 03:06 Glucose 106 mg/dL (74-106) 11/20/21 03:06 Phosphorus 4.7 mg/dL (2.5-4.9) 11/20/21 03:06 Magnesium 2.4 mg/dL (1.8-2.4) 11/20/21 03:06 Total Bilirubin 0.7 mg/dL (0.2-1.0) 11/15/21 03:01 AST 16 U/L (15-37) 11/15/21 03:01 ALT < 10 U/L (12-78) L 11/15/21 03:01 Alkaline Phosphatase 86 U/L (45-117) 11/15/21 03:01 Home Medications: Cholecalciferol (Vitamin D3) [Vitamin D 5,000 IU Cap*] 1 tab PO DAILY 11/02/21 Mirtazapine [Remeron*] 15 mg PO BEDTIME 11/02/21 Prasugrel HCl 10 mg PO DAILY 11/02/21 Sevelamer Carbonate [Renvela*] 800 mg PO TIDWM 11/02/21 calcitrioL [Rocaltrol] 2 tab PO DAILY 11/02/21 carvediloL [Coreg*] 12.5 mg PO BID 11/02/21 Apixaban [Eliquis *] 2.5 mg PO BID 11/08/21 Calcium Carbonate/Vitamin D3 [Oscal 500 + Vit D 200 Iu Tab*] 1 tab PO BIDWM tab 11/08/21 Docusate [Colace Cap*] 100 mg PO BID cap 11/08/21 Ensure High Protein 237 ml PO DAILY can 11/08/21 Epoetin [Retacrit] 10,000 unit SQ M,W,F vial 11/08/21 Heparin [Heparin 1,000 units/mL *] 4,000 unit IV EVERY HD PRN vial 11/08/21 Nifedipine Xl [Procardia XL*] 60 mg PO DAILY tab 11/17/21 Cyclobenzaprine [Flexeril*] 5 mg PO BIDP PRN tab 11/21/21 Epoetin [Retacrit] 10,000 unit SQ M,W,F vial 11/21/21 Heparin [Heparin 1,000 units/mL *] 4,000 unit IV EVERY HD PRN vial 11/21/21 Hydralazine HCl 25 mg PO TID #90 11/21/21 Hydrocodone 5/APAP 325 [[place] 5/325*] 1 tab PO Q8H PRN #15 tab 11/21/21 Losartan Potassium [Cozaar*] 50 mg PO BID 11/21/21 carvediloL [Coreg*] 12.5 mg PO BID tab 11/21/21 New Medications: Hydralazine HCl 25 mg PO TID #90 Hydrocodone 5/APAP 325 [[place] 5/325*] 1 tab PO Q8H PRN #15 tab PRN Reason: Pain Scale 5-7 (Moderate) Physician Discharge Instructions: Patient underwent ORIF by Dr. Stanford for her left intertrochanteric femur fracture. She worked with PT and recommended to continue therapy at a group home facility. Patient was to be discharged to SNF, however, on re-test, she was noted to be COVID positive. She remained asymptomatic from COVID. She is discharged to SNF. Post-operatively, she is to continue on effient with low dose eliquis, and hold her home aspirin. This was discussed with Cardiology. She will follow up with Orthopedic surgery within 1 week Follow up with Cardiology in a few weeks. Patient's anti-hypertensive medications were adjusted for better control during hospitalization, to continue monitoring and adjust accordingly. Follow up with Nephrology as scheduled. Activity: Fall precautions Followup: Carlos Manuel Porter DO [ACTIVE - CAN ADMIT] - Donn Griffin MD [ACTIVE - CAN ADMIT] - Iftikhar Stanford MD [ACTIVE - CAN ADMIT] - Cuong Pina MD [Primary Care Provider] - Time spent managing pt's care (in minutes): 37
[2021-11-21 16:16] VITALS: BP 163/80
--- NOTE | 2021-11-21 18:56 | P.PN ---
Date of Service: 11/21/21 Vital Signs Temp Pulse Resp BP Pulse Ox 97.5 F 67 18 163/80 H 98 11/21/21 16:00 11/21/21 16:00 11/21/21 16:00 11/21/21 16:00 11/21/21 16:00 Assessment/ Plan: Nephrology No dyspnea No chest pain No acute events overnight Vitals, medications, blood work and imaging reviewed in the chart. NAD. NCAT. MMM. Normal respiratory effort. RRR. Abd ND. No C/C/E. No rash. AAO. Normal speech. ESRD -HD TIW HTN with CKD/ CHF -Continue Nifedipine ER 60 BID Diastolic CHF, chronic -HD with UF -Low sodium diet Moderate malnutrition -Encourage nutrition -Consider Nepro -Continue MVI Anemia in CKD -Retacrit TIW CKD MBD -Continue Vitamin D3 -Continue Calcitriol -Tums with meals Slow transit constipation -Lactulose PRN Neck pain -PT as tolerated Placement pending [facility]
== END 2021-11-21 16:56 | DRG 480 ==
LOC: ER 16:59 → ERHOLD 19:34 → 2ND 21:58 → 4TH 11-08 20:16
PROVIDERS: ADMIT Hospitalist; ATTEND Hospitalist
PROC: 0QS706Z Reposition Left Upper Femur with Intramedullary Internal Fixation Device, Open Approach (ICD-10-PCS; 2021-11-01)
PROC: 5A1D70Z Performance of Urinary Filtration, Intermittent, Less than 6 Hours Per Day (ICD-10-PCS; principal; 2021-11-01 16:00)
PROC: 5A1D70Z Performance of Urinary Filtration, Intermittent, Less than 6 Hours Per Day (ICD-10-PCS; 2021-11-03)
PROC: 5A1D70Z Performance of Urinary Filtration, Intermittent, Less than 6 Hours Per Day (ICD-10-PCS; 2021-11-06)
PROC: 5A1D70Z Performance of Urinary Filtration, Intermittent, Less than 6 Hours Per Day (ICD-10-PCS; 2021-11-08)
PROC: 5A1D70Z Performance of Urinary Filtration, Intermittent, Less than 6 Hours Per Day (ICD-10-PCS; 2021-11-10)
PROC: 5A1D70Z Performance of Urinary Filtration, Intermittent, Less than 6 Hours Per Day (ICD-10-PCS; 2021-11-13)
PROC: 5A1D70Z Performance of Urinary Filtration, Intermittent, Less than 6 Hours Per Day (ICD-10-PCS; 2021-11-15)
PROC: 5A1D70Z Performance of Urinary Filtration, Intermittent, Less than 6 Hours Per Day (ICD-10-PCS; 2021-11-17)
PROC: 5A1D70Z Performance of Urinary Filtration, Intermittent, Less than 6 Hours Per Day (ICD-10-PCS; 2021-11-20)
DX: S72.142A Displaced intertrochanteric fracture of left femur, initial encounter for closed fracture (principal); N18.6 End stage renal disease; U07.1 COVID-19; I13.2 Hypertensive heart and chronic kidney disease with heart failure and with stage 5 chronic kidney disease, or end stage renal disease; E44.0 Moderate protein-calorie malnutrition; Z68.1 Body mass index [BMI] 19.9 or less, adult; I50.32 Chronic diastolic (congestive) heart failure; N25.81 Secondary hyperparathyroidism of renal origin; I73.9 Peripheral vascular disease, unspecified; E78.5 Hyperlipidemia, unspecified; D63.1 Anemia in chronic kidney disease; K59.01 Slow transit constipation; M54.2 Cervicalgia; F41.8 Other specified anxiety disorders; I25.10 Atherosclerotic heart disease of native coronary artery without angina pectoris; E03.9 Hypothyroidism, unspecified; E83.51 Hypocalcemia; R77.0 Abnormality of albumin; M25.511 Pain in right shoulder; W18.30XA Fall on same level, unspecified, initial encounter; Y92.009 Unspecified place in unspecified non-institutional (private) residence as the place of occurrence of the external cause; Z96.641 Presence of right artificial hip joint; Z86.73 Personal history of transient ischemic attack (TIA), and cerebral infarction without residual deficits; Z99.2 Dependence on renal dialysis
CPT/HCPCS: 36415; 51702; 76000; 80048; 80053; 80069; 82947; 83735; 84100; 85025; 85027; 86317; 86850; 86900; 86901; 87340; 87811; 90935; 93005; 96374; 96375; 97110; 97116; 97161; 97530; 99285; J0360; J0690; J1100; J1170; J1644; J2250; J2370; J2405; J2704; J2710; J2916; J3010; J7040; J7120; Q5106; U0003

== ENCOUNTER 2022-01-08 09:27 | Emergency (ER) | payer OTHER ==
--- OUTSIDE RECORDS SUMMARY | 2022-01-08 09:33 | XMS REPORT | Continuity of Care Document ---
:1935 Author Organization [facility] t Address [address] [place] [address] Care Team Providers Name Role Phone ROXY JACKSON Primary Care Physician Unavailable PARKER VITALE Attending Clinician Unavailable ROXY JACKSON Attending Clinician Unavailable YUE HUNG Attending Clinician Unavailable Stanley Sanz MD Attending Clinician YESIKA DYER Attending Clinician Unavailable NICOLE RUBALCAVA Attending Clinician Unavailable NICOLE RUBALCAVA Admitting Clinician Unavailable Payers Payer Name Policy Type Policy Number Effective Date Expiration Date S mihir MEDICARE PART A [id number] 2000 \T\ B 00:00:00 MEDICARE-PART B 5 [id number] 2018 00:00:00 Problems Condition Condition Condition Status Onset Resolution Last Treating Co mments Source Name Details Category Date Date Treatment Clinician Date HTN HTN Disease Active [facility]hypert[facility] (hypertens 3-04 [facility]ia kes ion) ion) 00:00: [facility] Center HLD HLD Disease Active [facility] (hyperlipi (hyperlipi 3-04 Klaudia kes demia) demia) 00:00: Medical 00 Center CAD CAD Disease Active [facility] (coronary (coronary 3-04 [facility] artery artery 00:00: Medical disease) disease) 00 Center TIA TIA Disease Active [facility] (transient (transient 3-03 Klaudia kes ischemic ischemic 00:00: Medica l attack) attack) 00 [place] Hip Hip Disease Active 2015-04 [facility] fracture fracture 0-10 it[facility] of 00:00: [place] 00 [facility] Femur Femur Disease Active 2015-04 [facility] fracture, fracture, 0-08 ity of right right 00:00: [place] 00 [facility] Allergies, Adverse Reactions, Alerts Allergy Allergy Status Severity Reaction(s) Onset Inactive Treating Comm ents Source Name Type Date Date Clinician Codeine Propensi Active ty to 3-05 adverse 00:00: reaction 00 to drug Codeine Propensi Active [facility] adverse 00:00: Medical reaction 00 [place] s CODEINE DRUG Active Hallucinates 2015-04 Uni vers INGREDI 0-08 ity of 00:00: [place] 00 [facility] Codeine Propensi Active Hallucinatio 2015-04 U nivers ty to ns 0-08 ity of adverse 00:00: [place] reaction 00 [facility] Branch codeine Adverse Active Info Not Common Reaction Available [facility] Social History Social Habit Start Date Stop Date Quantity Comments Source History [facility] Alcohol Comment Medical C enter History [facility] 2018-06-16 2018-06-[address] [facility] Alcohol Frequency 00:00:00 00:00:00 Medical Center History [facility] 2018-06-16 2018-06-[address] [facility] Alcohol Std Drinks 00:00:00 00:00:00 Medica l Center History [facility] 2018-06-16 2018-06-[address] [facility] Alcohol Binge 00:00:00 00:00:[address] Tobacco use and 2018-06-15 2018-06-[address] [facility] Klaudia kes exposure 00:00:00 00:00:00 [facility] Alcohol intake 2018-06-15 2018-06-15 [facility]00 of alcohol [facility] (finding) Sex Assigned At [address] [facility] Klaudia kes 00:00:00 00:00:00 Medical Center Smoking Status Start Date Stop Date Source Never smoker [facility] Branch Medications Ordered Filled Start Stop Current Ordering Indication Dosage Frequency Signature Comments Components Source Medication Medication Date Date Medication? Clinician (SIG) Name Name TAKE 1 2021-0 No 650 TABLET BY 8-22 MOUTH FOUR 00:00: TIMES A DAY 00 Dose 2021-0 No Unknown 8-12 00:00: 00 Dose 2021-0 No Unknown 8- 00:00: 00 furosemide 2-0 No 1mg 40 mg 7-18 tablet 00:00: 00 mirtazapine 2-0 No 1mg 15 mg 7-18 tablet 00:00: 00 Dose 2-0 No Unknown 7-18 00:00: 00 Dose 2-0 No Unknown 7-18 00:00: 00 Dose 2021-0 No Unknown 7-18 00:00: 00 Dose 2021-0 No Unknown 7-12 00:00: 00 amlodipine 2-0 No 1mg 10 mg 6-24 tablet 00:00: 00 Remeron 15 2021-0 No 1mg mg tablet 6-03 00:00: 00 metoprolol 2-0 No 1mg tartrate 50 3-21 mg tablet 00:00: 00 Remeron 15 2021-0 No 1mg mg tablet 3-21 00:00: 00 Dose 2-0 No Unknown 3-21 00:00: 00 Dose 2-0 No Unknown 3-21 00:00: 00 Dose 2-0 No Unknown 3-21 00:00: 00 Remeron 15 2020-1 No 1mg mg tablet 1-23 00:00: 00 Dose 2020-1 No Unknown 1-23 00:00: 00 Dose 2020-1 No Unknown 1-18 00:00: 00 cyanocobala 2020-1 No 1mcg/mL min (vit 1-18 B-12) 1,000 00:00: mcg/mL 00 injection solution cyanocobala 2020-1 No 1mcg/mL min (vit 1-16 B-12) 1,000 00:00: mcg/mL 00 injection solution cyanocobala 2020-1 No 1mcg/mL min (vit 0-27 B-12) 1,000 00:00: mcg/mL 00 injection solution cyanocobala 2020-1 No 1mcg/mL min (vit 0-27 B-12) 1,000 00:00: mcg/mL 00 injection solution Dose 2021-0 No Unknown 7-05 00:00: 00 Dose 2021-0 No Unknown 7-05 00:00: 00 Dose 2021-0 No Unknown 7-05 00:00: 00 Dose 2021-0 No Unknown 7-05 00:00: 00 hydralazine 2021-0 No 5mg 25 mg 7-05 tablet 00:00: 00 losartan 2021-0 No 1mg 100 mg 7-05 tablet 00:00: 00 Dose 2021-0 No Unknown 7-05 00:00: 00 Dose 2021-0 No Unknown 7-05 00:00: 00 Dose 2021-0 No Unknown 7-05 00:00: 00 cyanocobala 2021-0 No 1mcg/mL min (vit 7-05 B-12) 1,000 00:00: mcg/mL 00 injection solution atorvastati 1-0 No 1mg n 20 mg 6-24 tablet 00:00: 00 amlodipine 2021-0 No 1mg 10 mg 6-10 tablet 00:00: 00 metoprolol 2021-0 No 1mg tartrate 50 6-10 mg tablet 00:00: 00 atorvastati 2021-0 No 1mg n 20 mg 6-10 tablet 00:00: 00 atorvastati 2021-0 No 1mg n 20 mg 6-10 tablet 00:00: 00 alendronate 2021-0 No 1mg 70 mg 6-10 tablet 00:00: 00 alendronate 2021-0 No 1mg 70 mg 6-10 tablet 00:00: 00 Levo-T 25 2021-0 No 1mcg mcg tablet 6-10 00:00: 00 gabapentin 2021-0 No 1mg 300 mg 6-10 capsule 00:00: 00 Dose 2021-0 No Unknown 6-10 00:00: 00 amlodipine 2021-0 No 1mg 10 mg 5-28 tablet 00:00: 00 Levo-T 25 2021-0 No 1mcg mcg tablet 5-28 00:00: 00 cyanocobala 2021-0 No 1mcg/mL min (vit 5-28 B-12) 1,000 00:00: mcg/mL 00 injection solution atorvastati 2021-0 No 1mg n 20 mg 4-05 tablet 00:00: 00 metoprolol 2021-0 No 1mg tartrate 50 4-05 mg tablet 00:00: 00 Levo-T 25 1-0 No 1mcg mcg tablet 4-05 00:00: 00 gabapentin 2021-0 No 1mg 300 mg 4-05 capsule 00:00: 00 cyanocobala 2021-0 No 1mcg/mL min (vit 4 B-12) 1,000 00:00: mcg/mL 00 injection solution atorvastati 1-0 No 1mg n 20 mg 3-16 tablet 00:00: 00 Levo-T 25 1-0 No 1mcg mcg tablet 3-16 00:00: 00 metoprolol 1-0 No 1mg tartrate 50 1-14 mg tablet 00:00: 00 cyanocobala 1-0 No 1mcg/mL min (vit 1 B-12) 1,000 00:00: mcg/mL 00 injection solution gabapentin 2020-1 No 1mg 300 mg 0-19 capsule 00:00: 00 meloxicam 2020-0 No 1mg 7.5 mg 6-15 tablet 00:00: 00 prasugrel 2020-0 No 1mg 10 mg 6-02 tablet 00:00: 00 metoprolol 2020-0 No 1mg tartrate 50 6-02 mg tablet 00:00: 00 amlodipine 2020-0 No 1mg 10 mg 6-02 tablet 00:00: 00 atorvastati 2020-0 No 1mg n 20 mg 6-02 tablet 00:00: 00 hydralazine 2020-0 No 5mg 25 mg 6-02 tablet 00:00: 00 hydrochloro 2020-0 No 1mg thiazide 6-02 12.5 mg 00:00: tablet 00 alendronate 2020-0 No 1mg 70 mg 6-02 tablet 00:00: 00 Levo-T 25 2020-0 No 1mcg mcg tablet 6-02 00:00: 00 prasugrel 2020-0 No 1mg 10 mg 3-18 tablet 00:00: 00 metoprolol 2020-0 No 1mg tartrate 50 3-18 mg tablet 00:00: 00 amlodipine 2020-0 No 1mg 10 mg 3-18 tablet 00:00: 00 atorvastati 2020-0 No 1mg n 20 mg 3-18 tablet 00:00: 00 hydralazine 2020-0 No 5mg 25 mg 3-18 tablet 00:00: 00 hydrochloro 2020-0 No 1mg thiazide 3-18 12.5 mg 00:00: tablet 00 alendronate 2020-0 No 1mg 70 mg 3-18 tablet 00:00: 00 Levo-T 25 2020-0 No 1mcg mcg tablet 3-18 00:00: 00 alendronate 2020-0 No 1mg 70 mg 3-05 tablet 00:00: 00 Levo-T 25 2020-0 No 1mcg mcg tablet 3-05 00:00: 00 hydralazine 2020-0 No 5mg 25 mg 3-05 tablet 00:00: 00 atorvastati 2020-0 No 1mg n 20 mg 3-05 tablet 00:00: 00 metoprolol 2020-0 No 1mg tartrate 50 3-05 mg tablet 00:00: 00 amlodipine 2020-0 No 1mg 10 mg 3-05 tablet 00:00: 00 prasugrel 2020-0 No 1mg 10 mg 3-05 tablet 00:00: 00 hydrochloro 2020-0 No 1mg thiazide 3-05 12.5 mg 00:00: tablet 00 Tylenol 8 Tylenol 8 Yes Tucker 2 tablets Common Hour Hour 7-25 [place] as needed Spirit 00:00: - [facility] metoprolol Yes 50mg QD Take [address] (LOPRESSOR) 3-05 by mouth [facility] s 25 MG 20:29: daily. Medical tablet 27 [place] [facility] Yes 10mg QD Take [address] (EFFIENT) 3-05 by [facility] 10 mg Tab 20:29: daily. Medica l tablet 27 [place] levothyroxi Yes 25ug Take [address] ne 3-05 mcg by [facility]ukes (SYNTHROID, 20:29: mouth Medic al LEVOTHROID) 27 Every Center 25 MCG morning on tablet an empty stomach. losartan Yes 100mg QD Take [address] (COZAAR) 3-05 mg by [facility]ukes 100 MG 20:29: mouth Medical tablet 27 daily. [place] metoprolol Yes 50mg QD Take [address] (LOPRESSOR) 3-05 by mouth [facility] 25 MG 20:29: daily. Medical tablet 27 [place] [facility] 10mg QD Take [address] (EFFIENT) 3-05 by mouth [facility] 10 mg Tab 20:29: daily. Medica l tablet 27 [place] levothyroxi 0 Yes 25ug Take [address] ne 3-05 mcg by [facility]ukes (SYNTHROID, 20:29: mouth Medic al LEVOTHROID) 27 Every Center 25 MCG morning on tablet an empty stomach. losartan 0 Yes 100mg QD Take [address] (COZAAR) 3-05 mg by [facility]ukes 100 MG 20:29: mouth Medical tablet 27 daily. [place] metoprolol 0 Yes 50mg QD Take [address] (LOPRESSOR) 3-05 by mouth [facility] 25 MG 20:29: daily. Medical tablet 27 [place] prasugr Yes 10mg QD Take [address] (EFFIENT) 3-05 by mouth [facility] 10 mg Tab 20:29: daily. Medica l tablet 27 [place] levothyrox Yes 25ug Take [address] ne 3-05 mcg by Lukes (SYNTHROID, 20:29: mouth Medic al LEVOTHROID) 27 Every Center 25 MCG morning on tablet an empty stomach. losartan Yes 100mg QD Take [address] (COZAAR) 3-05 mg by [facility]ukes 100 MG 20:29: mouth Medical tablet 27 daily. [place] metoprolol 0 Yes 50mg QD Take [address] (LOPRESSOR) 3-05 by mouth [facility] 25 MG 20:29: daily. Medical tablet 27 [place] prasugr Yes 10mg QD Take [address] (EFFIENT) 3-05 by mouth [facility] 10 mg Tab 20:29: daily. Medica l tablet 27 [place] levothyroxi 0 Yes 25ug Take [address] ne 3-05 mcg by [facility]ukes (SYNTHROID, 20:29: mouth Medic al LEVOTHROID) 27 Every Center 25 MCG morning on tablet an empty stomach. losartan 2018-0 Yes 100mg QD Take [address] (COZAAR) 3-05 mg by [facility]ukes 100 MG 20:29: mouth Medical tablet 27 daily. [place] metoprolol 0 Yes 50mg QD Take [address] (LOPRESSOR) 3-05 by mouth Luke [facility] 25 MG 20:29: daily. Medical tablet 27 [place] [facility] Yes 10mg QD Take [address] (EFFIENT) 3-05 by mouth [facility] 10 mg Tab 20:29: daily. Medica l tablet 27 [place] levothyroxi 0 Yes 25ug Take [address] ne 3-05 mcg by [facility]ukes (SYNTHROID, 20:29: mouth Medic al LEVOTHROID) 27 Every Center 25 MCG morning on tablet an empty stomach. losartan Yes 100mg QD Take [address] (COZAAR) 3-05 mg by [facility]ukes 100 MG 20:29: mouth Medical tablet 27 daily. [place] metoprolol Yes 50mg QD Take [address] (LOPRESSOR) 3-05 by mouth Luke [facility] 25 MG 20:29: daily. Medical tablet 27 [place] prasugr Yes 10mg QD Take [address] (EFFIENT) 3-05 by mouth [facility] 10 mg Tab 20:29: daily. Medica l tablet 27 [place] levothyrox Yes 25ug Take [address] ne 3-05 mcg by [facility]ukes (SYNTHROID, 20:29: mouth Medic al LEVOTHROID) 27 Every Center 25 MCG morning on tablet an empty stomach. losartan Yes 100mg QD Take [address] (COZAAR) 3-05 mg by [facility]ukes 100 MG 20:29: mouth Medical tablet 27 daily. [place] metoprolol Yes 50mg QD Take [address] (LOPRESSOR) 3-05 by mouth Luke [facility] 25 MG 20:29: daily. Medical tablet 27 [place] prasugr Yes 10mg QD Take [address] (EFFIENT) 3-05 by mouth [facility] 10 mg Tab 20:29: daily. Medica l tablet 27 [place] levothyroxi Yes 25ug Take [address] ne 3-05 mcg by [facility]ukes (SYNTHROID, 20:29: mouth Medic al LEVOTHROID) 27 Every Center 25 MCG morning on tablet an empty stomach. losartan 0 Yes 100mg QD Take [address] (COZAAR) 3-05 mg by [facility]ukes 100 MG 20:29: mouth Medical tablet 27 daily. [place] metoprolol 0 Yes 50mg QD Take [address] (LOPRESSOR) 3-05 by mouth [facility] 25 MG 20:29: daily. Medical tablet 27 [place] prasugr 2019-0 Yes 10mg QD Take [address] (EFFIENT) 3-05 by mouth [facility] 10 mg Tab 20:29: daily. Medica l tablet 27 [place] levothyroxi 0 Yes 25ug Take [address] ne 3-05 mcg by [facility]ukes (SYNTHROID, 20:29: mouth Medic al LEVOTHROID) 27 Every Center 25 MCG morning on tablet an empty stomach. losartan 2019-0 Yes 100mg QD Take [address] (COZAAR) 3-05 mg by [facility] 100 MG 20:29: mouth Medical tablet 27 daily. [place] metoprolol 0 Yes 50mg QD Take [address] (LOPRESSOR) 3-05 by mouth [facility] 25 MG 20:29: daily. Medical tablet 27 [facility] Yes 10mg QD Take [address] (EFFIENT) 3-05 by mouth [facility] 10 mg Tab 20:29: daily. Medica l tablet 27 [place] levothyrox Yes 25ug Take [address] ne 3-05 mcg by [facility]ukes (SYNTHROID, 20:29: mouth Medic al LEVOTHROID) 27 Every Center 25 MCG morning on tablet an empty stomach. losartan 2018-0 Yes 100mg QD Take [address] (COZAAR) 3-05 mg by [facility]ukes 100 MG 20:29: mouth Medical tablet 27 daily. [place] metoprolol 0 Yes 50mg QD Take [address] (LOPRESSOR) 3-05 by mouth [facility] 25 MG 20:29: daily. Medical tablet 27 [facility] Yes 10mg QD Take [address] (EFFIENT) 3-05 by mouth [facility] 10 mg Tab 20:29: daily. Medica l tablet 27 [place] levothyrox 0 Yes 25ug Take [address] ne 3-05 mcg by [facility]ukes (SYNTHROID, 20:29: mouth Medic al LEVOTHROID) 27 Every Center 25 MCG morning on tablet an empty stomach. losartan 2019-0 Yes 100mg QD Take [address] (COZAAR) 3-05 mg by [facility] 100 MG 20:29: mouth Medical tablet 27 daily. [place] metoprolol 2019-0 Yes 50mg QD Take [address] (LOPRESSOR) 3-05 by mouth [facility] 25 MG 20:29: daily. Medical tablet 27 [facility] Yes 10mg QD Take [address] (EFFIENT) 3-05 by mouth [facility] 10 mg Tab 20:29: daily. Medica l tablet 27 [place] levothyroxi Yes 25ug Take [address] ne 3-05 mcg by [facility]ukes (SYNTHROID, 20:29: mouth Medic al LEVOTHROID) 27 Every Center 25 MCG morning on tablet an empty stomach. losartan Yes 100mg QD Take [address] (COZAAR) 3-05 mg by [facility] 100 MG 20:29: mouth Medical tablet 27 daily. [place] metoprolol Yes 50mg QD Take [address] (LOPRESSOR) 3-05 by mouth Luke [facility] 25 MG 20:29: daily. Medical tablet 27 [place] prasugrel Yes 10mg QD Take [address] (EFFIENT) 3-05 by mouth [facility] 10 mg Tab 20:29: daily. Medica l tablet 27 [place] levothyroxi Yes 25ug Take [address] ne 3-05 mcg by [facility]ukes (SYNTHROID, 20:29: mouth Medic al LEVOTHROID) 27 Every Center 25 MCG morning on tablet an empty stomach. losartan Yes 100mg QD Take [address] (COZAAR) 3-05 mg by [facility] 100 MG 20:29: mouth Medical tablet 27 daily. [place] pentazocine 2015-04 Yes 1{tbl} Take 1 Un [...] EVERY [place] tablet 00 SATURDAY Medical Branch Alendronate Alendronate Yes Tucker not Common Sodium Sodium Hilliard defined [facility] Metoprolol Metoprolol Yes Tucker not C ommon Succinate Succinate Hilliard defined [facility] Atorvastati Atorvastati Yes Tucker not Common n Calcium n Calcium Hilliard defined [facility] Losartan Losartan Yes Tucker not Commo n Potassium Potassium [place]illiard defined [facility] Prasugrel Prasugrel Yes Tucker not Com mon HCl HCl [place]illiard defined [facility] Aspirin Aspirin Yes Tucker not Common Hilliard defined [facility] Levothyroxi Levothyroxi Yes Tucker not Common ne Sodium ne Sodium Hilliard defined [facility] Immunizations Ordered Immunization Filled Immunization Date Status Commen ts Source Name Name Preet COVID-19 2021-02-08 Completed Vaccine 00:00:00 Moderna COVID-19 2020-05-06 Completed Vaccine 00:00:00 Influenza, seasonal, 2020-01-18 Completed inj 00:00:00 Moderna COVID-19 Unknown Completed Vaccine Vital Signs Vital Name Observation Time Observation Value Comments Source BP Systolic 2021-10-30 15:42:00 180 mm[Hg] BP Diastolic 2021-10-30 15:42:00 55 mm[Hg] Weight Measured 2021-10-30 15:42:00 101.80 pounds Height Measured 2021-10-30 15:42:00 63.50 inches Body Temperature 2021-10-30 15:42:00 98.70 degrees Heart Rate 2021-10-30 15:42:00 74.00 /min Respiratory Rate 2021-10-30 15:42:00 BP Systolic 2021-09-14 11:00:00 159.59 mm[Hg] BP Diastolic 2021-09-14 11:00:00 59 mm[Hg] Weight Measured 2021-09-14 11:00:00 99.80 pounds Height Measured 2021-09-14 11:00:00 63.50 inches Body Temperature 2021-09-14 11:00:00 97.50 degrees Heart Rate 2021-09-14 11:00:00 60.00 /min Respiratory Rate 2021-09-14 11:00:00 BP Systolic 2021-07-06 10:27:00 196 mm[Hg] BP Diastolic 2021-07-06 10:27:00 85 mm[Hg] Weight Measured 2021-07-06 10:27:00 102.80 pounds Height Measured 2021-07-06 10:27:00 63.50 inches Body Temperature 2021-07-06 10:27:00 97.40 degrees Heart Rate 2021-07-06 10:27:00 64.00 /min Respiratory Rate 2021-07-06 10:27:00 BP Systolic 2021-05-10 10:05:00 157 mm[Hg] BP Diastolic 2021-05-10 10:05:00 60 mm[Hg] Weight Measured 2021-05-10 10:05:00 105.80 pounds Height Measured 2021-05-10 10:05:00 63.50 inches Body Temperature 2021-05-10 10:05:00 97.20 degrees Heart Rate 2021-05-10 10:05:00 66.00 /min Respiratory Rate 2021-05-10 10:05:00 BP Systolic 2021-04-26 15:03:00 121 mm[Hg] BP Diastolic 2021-04-26 15:03:00 55 mm[Hg] Weight Measured 2021-04-26 15:03:00 108.60 pounds Height Measured 2021-04-26 15:03:00 63.50 inches Body Temperature 2021-04-26 15:03:00 97.30 degrees Heart Rate 2021-04-26 15:03:00 64.00 /min Respiratory Rate 2021-04-26 15:03:00 BP Systolic 2021-03-23 14:12:00 151 mm[Hg] BP Diastolic 2021-03-23 14:12:00 60 mm[Hg] Weight Measured 2021-03-23 14:12:00 106.40 pounds Height Measured 2021-03-23 14:12:00 63.50 inches Body Temperature 2021-03-23 14:12:00 96.70 degrees Heart Rate 2021-03-23 14:12:00 Respiratory Rate 2021-03-23 14:12:00 BP Systolic 2021-02-08 11:44:00 183 mm[Hg] BP Diastolic 2021-02-08 11:44:00 78 mm[Hg] Weight Measured 2021-02-08 11:44:00 99.50 pounds Height Measured 2021-02-08 11:44:00 63.50 inches Body Temperature 2021-02-08 11:44:00 97.60 degrees Heart Rate 2021-02-08 11:44:00 65.00 /min Respiratory Rate 2021-02-08 11:44:00 BP Systolic 2021-02-08 11:23:00 183 mm[Hg] BP Diastolic 2021-02-08 11:23:00 78 mm[Hg] Weight Measured 2021-02-08 11:23:00 Height Measured 2021-02-08 11:23:00 Body Temperature 2021-02-08 11:23:00 Heart Rate 2021-02-08 11:23:00 Respiratory Rate 2021-02-08 11:23:00 BP Systolic 2021-01-26 13:27:00 192 mm[Hg] BP Diastolic 2021-01-26 13:27:00 76 mm[Hg] Weight Measured 2021-01-26 13:27:00 99.40 pounds Height Measured 2021-01-26 13:27:00 63.50 inches Body Temperature 2021-01-26 13:27:00 97.40 degrees Heart Rate 2021-01-26 13:27:00 64.00 /min Respiratory Rate 2021-01-26 13:27:00 BP Systolic 2020-10-17 10:07:00 160 mm[Hg] BP Diastolic 2020-10-17 10:07:00 70 mm[Hg] Weight Measured 2020-10-17 10:07:00 101.00 pounds Height Measured 2020-10-17 10:07:00 63.50 inches Body Temperature 2020-10-17 10:07:00 97.40 degrees Heart Rate 2020-10-17 10:07:00 58.00 /min Respiratory Rate 2020-10-17 10:07:00 Procedures This patient has no known procedures. [...] [facility] Test 00:00:00 (1 of 1 - [facility] [id number] PCV13) [code = PNEUMOCOCCAL 65+ YRS (1 of 1 - [id number]_Rjdvmns PCV13)] Future Scheduled 2000-10-14 PNEUMOCOCCAL 65+ Y[facility] Test 00:00:00 (1 of 1 - [facility] [id number] PCV13) [code = PNEUMOCOCCAL 65+ YRS (1 of 1 - [id number] PCV13)] Future Scheduled 2000-10-14 PNEUMOCOCCAL 65+ Y[facility] Test 00:00:00 (1 of 1 [facility] [id number]_Pwlvocz PCV13) [code = PNEUMOCOCCAL 65+ YRS (1 of 1 - [id number]_Gkjitwe PCV13)] Future Scheduled 2000-10-14 PNEUMOCOCCAL 65+ [facility] Test 00:00:00 ([address] [place] [address] [id number] PCV13) [code = PNEUMOCOCCAL 65+ YRS (1 of 1 - [id number]_Seglffh PCV13)] Future Scheduled 2000-10-14 PNEUMOCOCCAL 65+ Y[facility] Test 00:00:00 (1 of 1 [facility] [id number]_Cgcoygr PCV13) [code = PNEUMOCOCCAL 65+ YRS (1 of 1 - [id number]_Cpewiwv PCV13)] Future Scheduled 2000-10-14 PNEUMOCOCCAL 65+ [facility] Test 00:00:00 ([address] [place] [address] [id number]_Byjcqla PCV13) [code = PNEUMOCOCCAL 65+ YRS (1 of 1 - [id number] PCV13)] Future Scheduled 2000-10-14 PNEUMOCOCCAL 65+ [facility] Test 00:00:00 ([address] [place] [address] Center [id number] PCV13) [code = PNEUMOCOCCAL 65+ YRS (1 of 1 - WHRR89_Inubukm PCV13)] Future Scheduled 2000-10-14 PNEUMOCOCCAL 65+ Y[facility] Test 00:00:00 ([address] [place] [address] [id number]_Vycevyw PCV13) [code = PNEUMOCOCCAL 65+ YRS (1 of 1 - ENFR01_Kdkrtva PCV13)] Future Scheduled 2000-10-14 PNEUMOCOCCAL 65+ Y[facility] Test 00:00:00 (1 of 1 [facility] [id number]_Ahwjfha PCV13) [code = PNEUMOCOCCAL 65+ YRS (1 of 1 - [id number]_Nxiwscr PCV13)] Future Scheduled 1985-10-14 SHINGLES VACCINES (1 [...] = COVID-[address] VACCINE (1)] Goal Plan of Care Note [code = 80774-4] Goal Plan of Care Note [code = 33280-8] Goal Plan of Care Note [code = 93350-2] Goal Plan of Care Note [code = 56303-1] Goal Plan of Care Note [code = 95880-1] Goal Plan of Care Note [code = 40694-6] Goal Plan of Care Note [code = 09045-0] Goal Plan of Care Note [code = 53704-0] Goal Plan of Care Note [code = 99529-9] Goal Plan of Care Note [code = 09494-4] Goal Plan of Care Note [code = 02262-7] Goal Plan of Care Note [code = 05067-8] Goal Plan of Care Note [code = 83365-2] Goal Plan of Care Note [code = 80674-5] Goal Plan of Care Note [code = 99518-9] Goal Plan of Care Note [code = 35878-2] Goal Plan of Care Note [code = 88591-1] Goal Plan of Care Note [code = 19355-0] Goal Plan of Care Note [code = 77926-8] Goal Plan of Care Note [code = 20635-5] Goal Plan of Care Note [code = 47468-6] Goal Plan of Care Note [code = 05156-3] Goal Plan of Care Note [code = 30850-1] Goal Plan of Care Note [code = 31573-0] Goal Plan of Care Note [code = 77365-4] Goal Plan of Care Note [code = 11548-4] Goal Plan of Care Note [code = 28230-3] Goal Plan of Care Note [code = 66494-2] Goal Plan of Care Note [code = 32400-4] Goal Plan of Care Note [code = 30494-1] Encounters Start End Encounter Admission Attending Care Care Encounter Source Date/Time Date/Time Type Type Clinicians Facility Department ID 2021-12-14 Outpatient MIKKILINENI STLMLC STLMLC [id number] Common 08:02: , [facility] AURELIO - [facility] I [facility] 2021-11-01 Outpatient STLMLC STLMLC [id number] Common 08:28:00 [facility] 2021-05-10 Outpatient STLMLC STLMLC [id number] Common 14:37:15 [facility] 2021-12-15 2021-12-15 ambulatory STLMLC STLMLC [id number] Common 00:00:00 00:00:00 [facility] 2021-12-14 2021-12-14 ambulatory STLMLC STLMLC [id number] Common 00:00:00 00:00:00 [facility] 2021-12-12 2021-12-12 Outpatient [id number] 00:00:00 00:00:00 Visit [id number] 2021-08-01 2021-08-01 Outpatient Ananda JACKSON [facility] [id number] Univers 09:00:00 09:00:00 ROXY [id number] [facility] 2021-08-01 2021-08-01 Outpatient Ananda JACKSON [facility] [id number] Univers 09:00:00 09:00:00 ROXY [facility] 2021-07-01 2021-07-01 Outpatient HANSA HUNG HANSA [id number] [place] 00:00:00 00:00:00 YUEJESS Kwongcynthia hernandez 2021-06-25 2021-06-25 Outpatient HANSA HUNG HANSA [id number] [place] 00:00:00 00:00:00 YUE alex hernandez 2020-10-03 2020-10-03 Telephone [facility] [id number] Univers 00:00:00 00:00:00 [facility] [id number] it y of Surgical [id number] Hi as Specialti [id number] Mt dical 198 [facility] 2020-04-29 2020-04-29 [facility] [id number] Univers 15:00:00 15:00:00 YESIKA [id number] [facility] 2020-04-29 2020-04-29 [facility] [facility] [id number] 15:00:00 15:00:00 YESIKA [facility] 2018-11-06 2018-11-06 [id number] Common 11:00:00 11:00:00 [facility] 2018-10-09 2018-10-09 [id number] Common 10:30:00 10:30:00 [facility] Results Test Description Test Time Test Comments Results Result Comments Source COMPREHENSIVE METABOLIC PANEL 2021-03-25 00:00:00 Test Item Value Reference Range Interpretation Comme nts GLUCOSE (test code = 2217) 123 MG/DL BUN (test code = 2208) 81 MG/DL CREATININE (test code = 2214) 5.82 MG/DL eGFR AMER. (test code = 72510) 7 ML/MIN/1.73 eGFR (2020 CKD-EPI) (test code = 72228) 6 ML/MIN/1.73 CALC BUN/CREAT (test code = 2235) 14 RATIO SODIUM (test code = 2231) 141 MEQ/L POTASSIUM (test code = 2228) 8.0 MEQ/L CHLORIDE (test code = 2215) 109 MEQ/L CARBON DIOXIDE (test code = 2206) 16 MEQ/L CALCIUM (test code = 2209) 8.3 MG/DL PROTEIN, TOTAL (test code = 2229) 6.1 G/DL ALBUMIN (test code = 2201) 3.2 G/DL CALC GLOBULIN (test code = 2240) 2.9 G/DL CALC A/G RATIO (test code = 2234) 1.1 RATIO BILIRUBIN, TOTAL (test code = 2207) 0.4 MG/DL ALKALINE PHOSPHATASE (test code = 2204) 76 U/L AST (test code = 2218) 37 U/L ALT (test code = 2219) 12 U/L COMPREHENSIVE METABOLIC [id number] 00:00:00 Test Item Value Reference Range Interpretation Comments GLUCOSE (test code = 2217) 123 MG/DL BUN (test code = 2208) 81 MG/DL CREATININE (test code = 2214) 5.82 MG/DL eGFR AMER. (test code = 7 ML/MIN/1.73 24028) eGFR (2020 CKD-EPI) (test code 6 ML/MIN/1.73 = 02304) CALC BUN/CREAT (test code = 14 RATIO 2235) SODIUM (test code = 2231) 141 MEQ/L POTASSIUM (test code = 2228) 8.0 MEQ/L CHLORIDE (test code = 2215) 109 MEQ/L CARBON DIOXIDE (test code = 16 MEQ/L 2205) CALCIUM (test code = 2209) 8.3 MG/DL PROTEIN, TOTAL (test code = 6.1 G/DL 2229) ALBUMIN (test code = 2201) 3.2 G/DL CALC GLOBULIN (test code = 2.9 G/DL 2240) CALC A/G RATIO (test code = 1.1 RATIO 2234) BILIRUBIN, TOTAL (test code = 0.4 MG/DL 7) ALKALINE PHOSPHATASE (test code 76 U/L = 2204) AST (test code = 2218) 37 U/L ALT (test code = 2219) 12 U/L FREE T4 (THYROXINE)2020-02-02 00:00:00 Test Item Value Reference Range Interpretation Comments FREE T4 (THYROXINE) (test code = 1.33 NG/DL 2823) FREE T4 (THYROXINE)2020-02-02 00:00:00 Test Item Value Reference Range Interpretation Comments FREE T4 (THYROXINE) (test code = 1.33 NG/DL 2823) CBC W/AUTO [id number] 00:00:00 Test Item Value Reference Range Interpretation Comments WBC (test code = 1001) 8.6 K/UL RBC (test code = 1002) 3.86 M/UL HEMOGLOBIN (test code = 1003) 11.5 G/DL HEMATOCRIT (test code = 1004) 34.1 % MCV (test code = 1005) 88.3 fL MCH (test code = 1006) 29.8 PG MCHC (test code = 1007) 33.7 G/DL RDW (test code = 1038) 12.4 % NEUTROPHILS (test code = 1008) 73.8 % LYMPHOCYTES (test code = 1010) 14.7 % MONOCYTES (test code = 1011) 8.7 % EOSINOPHILS (test code = 1012) 1.6 % BASOPHILS (test code = 1013) 1.2 % PLATELET COUNT (test code = 1015) 297 K/UL CBC W/AUTO [id number] 00:00:00 Test Item Value Reference Range Interpretation Comments WBC (test code = 1001) 8.6 K/UL RBC (test code = 1002) 3.86 M/UL HEMOGLOBIN (test code = 1003) 11.5 G/DL HEMATOCRIT (test code = 1004) 34.1 % MCV (test code = 1005) 88.3 fL MCH (test code = 1006) 29.8 PG MCHC (test code = 1007) 33.7 G/DL RDW (test code = 1038) 12.4 % NEUTROPHILS (test code = 1008) 73.8 % LYMPHOCYTES (test code = 1010) 14.7 % MONOCYTES (test code = 1011) 8.7 % EOSINOPHILS (test code = 1012) 1.6 % BASOPHILS (test code = 1013) 1.2 % PLATELET COUNT (test code = 1015) 297 K/UL CBC W/AUTO [id number] 00:00:00 Test Item Value Reference Range Interpretation Comments WBC (test code = 1001) 8.6 K/UL RBC (test code = 1002) 3.86 M/UL HEMOGLOBIN (test code = 1003) 11.5 G/DL HEMATOCRIT (test code = 1004) 34.1 % MCV (test code = 1005) 88.3 fL MCH (test code = 1006) 29.8 PG MCHC (test code = 1007) 33.7 G/DL RDW (test code = 1038) 12.4 % NEUTROPHILS (test code = 1008) 73.8 % LYMPHOCYTES (test code = 1010) 14.7 % MONOCYTES (test code = 1011) 8.7 % EOSINOPHILS (test code = 1012) 1.6 % BASOPHILS (test code = 1013) 1.2 % PLATELET COUNT (test code = 1015) 297 K/UL COMPREHENSIVE METABOLIC [id number] 00:00:00 Test Item Value Reference Range Interpretation Comments GLUCOSE (test code = 2217) 92 MG/DL BUN (test code = 2208) 29 MG/DL CREATININE (test code = 2214) 1.53 MG/DL eGFR AMER. (test code 36 ML/MIN/1.73 = 42769) eGFR NON- AMER. (test 31 ML/MIN/1.73 code = 25783) CALC BUN/CREAT (test code = 19 RATIO 2235) SODIUM (test code = 2231) 142 MEQ/L POTASSIUM (test code = 2228) 5.2 MEQ/L CHLORIDE (test code = 2215) 109 MEQ/L CARBON DIOXIDE (test code = 20 MEQ/L 2206) CALCIUM (test code = 2209) 9.3 MG/DL PROTEIN, TOTAL (test code = 6.5 G/DL 2228) ALBUMIN (test code = 2201) 3.9 G/DL CALC GLOBULIN (test code = 2.6 G/DL 2240) CALC A/G RATIO (test code = 1.5 RATIO 2234) BILIRUBIN, TOTAL (test code = 0.3 MG/DL 2206) ALKALINE PHOSPHATASE (test 73 U/L code = 2204) AST (test code = 2218) 27 U/L ALT (test code = 2219) 18 U/L COMPREHENSIVE METABOLIC [id number] 00:00:00 Test Item Value Reference Range Interpretation Comments GLUCOSE (test code = 2217) 92 MG/DL BUN (test code = 2208) 29 MG/DL CREATININE (test code = 2214) 1.53 MG/DL eGFR AMER. (test code 36 ML/MIN/1.73 = 38783) eGFR NON- AMER. (test 31 ML/MIN/1.73 code = 75161) CALC BUN/CREAT (test code = 19 RATIO 2234) SODIUM (test code = 2231) 142 MEQ/L POTASSIUM (test code = 2228) 5.2 MEQ/L CHLORIDE (test code = 2215) 109 MEQ/L CARBON DIOXIDE (test code = 20 MEQ/L 2205) CALCIUM (test code = 2209) 9.3 MG/DL PROTEIN, TOTAL (test code = 6.5 G/DL 2228) ALBUMIN (test code = 2201) 3.9 G/DL CALC GLOBULIN (test code = 2.6 G/DL 2239) CALC A/G RATIO (test code = 1.5 RATIO 2233) BILIRUBIN, TOTAL (test code = 0.3 MG/DL 2206) ALKALINE PHOSPHATASE (test 73 U/L code = 2204) AST (test code = 2218) 27 U/L ALT (test code = 2219) 18 U/L [id number] 00:00:00 Test Item Value Reference Range Interpretation Comments TSH, THIRD GENERATION (test code 3.330 UIU/ML = 2821) [id number] 00:00:00 Test Item Value Reference Range Interpretation Comments TSH, THIRD GENERATION (test code 3.330 UIU/ML = 2821) [id number] 00:00:00 Test Item Value Reference Range Interpretation Comments TSH, THIRD GENERATION (test code 3.330 UIU/ML = 2821) FREE T4 (THYROXINE)2020-02-02 00:00:00 Test Item Value Reference Range Interpretation Comments FREE T4 (THYROXINE) (test code = 1.33 NG/DL 2823) CALCIUM, [id number] 06:48:00 Test Item Value Reference Range Interpretation Comments CALCIUM IONIZED (BEAKER) (test 1.05 mmol/L 1.12-1.27 L code = 698) PH, BLOOD (BEAKER) (test code = 7.43 1810) [id number] 06:12:00 Test Item Value Reference Range Interpretation Comments PHOSPHORUS (BEAKER) (test code = 3.4 mg/dL 2.3-4.7 604) [id number] 06:12:00 Test Item Value Reference Range Interpretation Comments MAGNESIUM (BEAKER) (test code = 1.7 mg/dL 1.6-2.6 627) BASIC METABOLIC [id number] 06:12:00 Test Item Value Reference Range Interpretation [...] PATIEN TS. CBC W/PLT COUNT & AUTO [id number] 05:34:00 Test Item Value Reference Range Interpretation [...] code = 2801) MR, MRA, BRAIN, WITHOUT [id number] 10:59:00Reason for exam:->Ischemic Stroke EvaluationFINAL REPORT MRA Head CLINICAL HISTORY: Stroke TECHNIQUE: MRA of the head utilizing 3-D chzm-xy-hmoabt technique, with 3-D reconstructions. COMPARISON: None IMPRESSION: Allowing for mild motion degradation, there is no evidence for a quileute of Lopez proximal branch vessel occlusion. Distal branch vessel occlusions cannot be excluded. Aneurysms cannot be excluded. MRA Neck CLINICAL HISTORY: Stroke TECHNIQUE: MRA of the neck utilizing 2-D and 3-D lwue-kx-dtgbao technique, with 3-D reconstructions. COMPARISON: None IMPRESSION: [...] likely partially reconstituted by cervical muscular branches. Signed:Arianna Rosas MDReport Verified Date/Time: 06/16/2018 10:59:34 Reading Location: [address] Neuro Reading Room MR, MRA, NECK, WITHOUT IV [id number] 10:59:00Reason for exam:->Ischemic Stroke EvaluationFINAL REPORT MRA Head CLINICAL HISTORY: Stroke TECHNIQUE: MRA of the head utilizing 3-D oozq-of-cgktrb technique, with 3-D reconstructions. COMPARISON: None IMPRESSION: Allowing for mild motion degradation, there is no evidence for a quileute of [place] proximal branch vessel occlusion. Distal branch vessel occlusions cannot be excluded. Aneurysms cannot be excluded. MRA Neck CLINICAL HISTORY: Stroke TECHNIQUE: MRA of the neck utilizing 2-D and 3-D qckk-vf-loewxa technique, with 3-D reconstructions. COMPARISON: None IMPRESSION: [...] likely partially reconstituted by cervical muscular branches. Signed:Arianna Rosas Verified Date/Time: 06/16/2018 10:59:34 Reading Location: [address] Neuro Reading Room MR, BRAIN, WITHOUT [id number] 10:52:00Reason for exam:->Ischemic Stroke EvaluationFINAL REPORT MRI Brain without contrast Clinical History: TIA, stroke Technique: MRI of the brain utilizing axial T2, FLAIR, GRE, DWI; sagittal and coronal T1-weighted images. Comparisons: None Findings: There is no evidence of acute infarct or hemorrhage. There are chronic left mid and posterior frontal lobe infarcts. There is a chronic left parietal infarct with encephalomalacia and mild hemosiderin staining. There are small chronic left occipital pole infarcts. There is moderate periventricular and subcortical white matter T2 hyperintensity, which is nonspecific but compatible with chronic microvascular ischemic change. There is generalized parenchymal volume loss without hydrocephalus, midline shift, or apparent mass effect. There are no extra-axial fluid collections. Thecraniocervical junction is preserved. The major intracranial flow-voids appear patent. IMPRESSION: No evidence of acute infarct, hemorrhage, or hydrocephalus. Chronic infarcts of the left frontal, parietal, and occipital lobes. 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 Signed: Arianna Rosas MDReport Verified Date/Time: 06/16/2018 10:52:22 Reading Location: [address] Neuro Reading Room HEMOGLOBIN [id number] 09:43:00 Test Item Value Reference Range Interpretation Comments HEMOGLOBIN A1C (BEAKER) (test code = 5.9 % 4.3-6.1 368) VITAMIN [id number] 06:40:00 Test Item Value Reference Range Interpretation Comments VITAMIN B12 (BEAKER) (test code = 375 pg/mL 213-816 774) TSH/FREE T4 IF [id number] 05:45:00 Test Item Value Reference Range Interpretation Comments THYROID STIMULATING HORMONE 4.44 uIU/mL 0.35-4.94 (BEAKER) (test code = 772) LIPID [id number] 05:27:00 Test Item Value Reference Range Interpretation Comments TRIGLYCERIDES (BEAKER) 73 mg/dL Speci men slightly (test code = 540) hemolyzed CHOLESTEROL (BEAKER) 114 mg/dL Specime n slightly (test code = 631) hemolyzed HDL CHOLESTEROL (BEAKER) 46 mg/dL (test code = 976) LDL CHOLESTEROL 53 mg/dL CALCULATED (BEAKER) (test code = 633) Triglyceride Reference Range: Low Risk <150 Borderline 150-199 High Risk 200- 499 Very High Risk >=500Cholesterol Reference Range: Low Risk <200 Borderline 200-239 High Risk >240HDL Cholesterol Reference Range: Low Risk >=60 High Risk <40LDL Cholesterol Reference Range: Optimal <100 Near Optimal 100-129 Borderline 130-159 High 160-189 Very High >=190
[2022-01-08 11:23] LABS: Hematocrit 38.6 % (36.0-45.0); Lymphocytes % 14.1 % (15.3-44.8); MCV 87.4 fL (80-100); MPV 7.8 fL (7.6-11.3); RBC Red Blood Cell Count 4.41 M/uL (3.86-4.86)
[2022-01-08] MEDS ORDERED: cloNIDine HCL 0.1 MG TAB ONE (11:40)
[2022-01-08 11:44] LABS: Potassium 4.1 mmol/L (3.5-5.1)
--- NOTE | 2022-01-08 12:17 | ER ---
Nurse's Notes [facility] Name: Isadora Jeffery Age: 86 yrs Sex: Female : 1935 Arrival Date: 01/08/2022 Time: 09:30 Bed 20 Private MD: Diagnosis: Cellulitis of left lower limb;Essential (primary) hypertension Presentation: 01/08 09:36 Chief complaint: Patient states: Left kana with wound and redness x 3 days. Coronavirus jl7 screen: Vaccine status: Patient reports receiving the 2nd dose of the covid vaccine. At this time, the client does not indicate any symptoms associated with coronavirus-19. Ebola Screen: No symptoms or risks identified at this time. Risk Assessment: Do you want to hurt yourself or someone else? Patient reports no desire to harm self or others. Onset of symptoms was January 05, 2022. 09:36 Method Of Arrival: Wheelchair jl7 09:36 Acuity: ROMELIA 2 jl7 09:37 Initial Sepsis Screen: Does the patient meet any 2 criteria? No. Patient's initial jl7 sepsis screen is negative. Does the patient have a suspected source of infection? No. Patient's initial sepsis screen is negative. Triage Assessment: 09:40 General: Appears in no apparent distress. uncomfortable, Behavior is calm, cooperative, jl7 appropriate for age. Pain: Complains of pain in left leg Pain currently is 5 out of 10 on a pain scale. Historical: - Allergies: 09:37 Codeine; jl7 - Home Meds: 09:37 aspirin 81 mg Oral cap 1 cap once daily [Active]; atorvastatin 20 mg Oral tab 1 tab jl7 once daily [Active]; furosemide 40 mg Oral tab 1 tab 2 times per day [Active]; carvedilol 12.5 mg Oral tab 1 tab 2 times per day [Active]; irbesartan 150 mg Oral tab 1 tab once daily [Active]; levothyroxine 25 mcg cap 1 cap once daily [Active]; mirtazapine 15 mg Oral TbDi 1 tab once daily [Active]; prasugrel 10 mg Oral tab 1 tab once daily [Active]; - PMHx: 09:37 CVA; Depression; Hyperlipidemia; Hypertension; kidney disease; Hypothyroidism; jl7 09:40 Dialysis; M-W-F; jl7 - PSHx: 09:37 Appendectomy; Cholecystectomy; Total abdominal hysterectomy; jl7 - Immunization history:: Client reports receiving the 2nd dose of the Covid vaccine. - Social history:: Smoking status: Patient denies any tobacco usage or history of. Screenin:20 Abuse screen: Denies threats or abuse. Denies injuries from another. Nutritional tp1 screening: No deficits noted. Tuberculosis screening: No symptoms or risk factors identified. Fall Risk No fall in past 12 months (0 pts). No secondary diagnosis (0 pts). IV access (20 points). Ambulatory Aid- None/Bed Rest/Nurse Assist (0 pts). Gait- Normal/Bed Rest/Wheelchair (0 pts) Mental Status- Oriented to own ability (0 pts). Assessment: 10:15 General: Appears in no apparent distress. uncomfortable, Behavior is calm, cooperative. tp1 Pain: Complains of pain in lateral aspect of left calf Pain does not radiate. Pain currently is 5 out of 10 on a pain scale. Neuro: Level of Consciousness is awake, alert, obeys commands, Oriented to person, place, time, situation. Cardiovascular: Patient's skin is warm and dry. Respiratory: Airway is patent Respiratory effort is even, unlabored. GI: Abdomen is flat, non-distended. : No signs and/or symptoms were reported regarding the genitourinary system. EENT: No signs and/or symptoms were reported regarding the EENT system. Derm: Wound noted lateral aspect of left calf Wound is abrasion Other: skin around abrasion appears to bed red, no swelling noted. Musculoskeletal: Circulation, motion, and sensation intact. Injury Description: Abrasion sustained to lateral aspect of left calf is no drainage noted. 11:23 Reassessment: Patient appears in no apparent distress at this time. No changes from tp1 previously documented assessment. Patient and/or family updated on plan of care and expected duration. Pain level reassessed. Patient is alert, oriented x 3, equal unlabored respirations, skin warm/dry/pink. at bedside. - Cesario [phone]. 11:40 Reassessment: denies pain while laying in bed. States it is painful to ambulate. tp1 12:55 Reassessment: Patient appears in no apparent distress at this time. No changes from tp1 previously documented assessment. Patient is alert, oriented x 3, equal unlabored respirations, skin warm/dry/pink. Vital Signs: 09:37 BP 212 / 92; Pulse 105; Resp 17; Temp 97.9; Pulse Ox 100% ; Weight 46.27 kg; Height 5 jl7 ft. 7 in. (170.18 cm); Pain 8/10; 09:51 Temp 98.5(O); vg1 11:25 BP 217 / 92; Pulse 97; Resp 15; Pulse Ox 99% on R/A; tp1 12:45 BP 177 / 78; Pulse 84; Resp 16; Pulse Ox 98% on R/A; tp1 09:37 Body Mass Index 15.98 (46.27 kg, 170.18 cm) jl7 11:25 provider notified tp1 ED Course: 09:30 Patient arrived in ED. rg4 09:33 Saqib Gunter DO is Attending Physician. ms3 09:37 Triage completed. jl7 09:40 Arm band placed on right wrist. jl7 09:50 Patient has correct armband on for positive identification. Bed in low position. Call tp1 light in reach. Side rails up X 1. Adult w/ patient. 09:50 Client placed on continuous cardiac and pulse oximetry monitoring. NIBP monitoring tp1 applied. 10:27 Kristin Luu, RN is Primary Nurse. tp1 11:14 Inserted saline lock: 20 gauge in left EJ, using aseptic technique. ,using aseptic tp1 technique. inserted by Lyric Blood collected. 13:11 IV discontinued, intact, bleeding controlled, No redness/swelling at site. Pressure tp1 dressing applied. 13:19 No provider procedures requiring assistance completed. tp1 Administered Medications: 11:43 Drug: cloNIDine 0.1 mg Route: PO; tp1 12:31 Follow up: Response: Blood pressure is unchanged tp1 12:59 Drug: Doxycycline 100 mg Route: PO; tp1 13:20 Follow up: Response: Medication administered at discharge. tp1 Medication: 13:19 VIS not applicable for this client. tp1 Outcome: 12:17 Discharge ordered by . ms3 13:19 Discharged to home ambulatory. tp1 13:19 Condition: good 13:19 Discharge instructions given to patient, family, Instructed on discharge instructions, follow up and referral plans. medication usage, Demonstrated understanding of instructions, follow-up care, medications, Prescriptions given X 1. 13:20 Patient left the ED. tp1 Signatures: Minerva Chris4 Vineet Ivory RN RN jl7 Prema Chris RN RN vg1 Saqib Gunter DO DO ms3 Kristin Luu, LEWIS RN tp1 Corrections: (The following items were deleted from the chart) 09:40 09:37 PMHx: Dialysis; dayanna alan
--- NOTE | 2022-01-08 12:17 | EDPHYS ---
Physician Documentation [facility] Name: Isadora Jeffery Age: 86 yrs Sex: Female : 1935 Arrival Date: 01/08/2022 Time: 09:30 Bed 20 Private MD: ED Physician Saqib Gunter HPI: 01/08 09:49 This 86 yrs old Female presents to ER via Wheelchair with complaints of Swelling Foot. ms3 09:49 86-year-old female with past medical history of CVA, depression, hyperlipidemia, ms3 hypertension, end-stage renal disease presents with her for left lower extremity swelling, erythema and pain. Patient states her discomfort is an 8/10 and aching. Patient denies alleviating or inciting factors. Patient denies fevers or chills.. Historical: - Allergies: 09:37 Codeine; jl7 - Home Meds: 09:37 aspirin 81 mg Oral cap 1 cap once daily [Active]; atorvastatin 20 mg Oral tab 1 tab jl7 once daily [Active]; furosemide 40 mg Oral tab 1 tab 2 times per day [Active]; carvedilol 12.5 mg Oral tab 1 tab 2 times per day [Active]; irbesartan 150 mg Oral tab 1 tab once daily [Active]; levothyroxine 25 mcg cap 1 cap once daily [Active]; mirtazapine 15 mg Oral TbDi 1 tab once daily [Active]; prasugrel 10 mg Oral tab 1 tab once daily [Active]; - PMHx: 09:37 CVA; Depression; Hyperlipidemia; Hypertension; kidney disease; Hypothyroidism; jl7 09:40 Dialysis; M-W-F; jl7 - PSHx: 09:37 Appendectomy; Cholecystectomy; Total abdominal hysterectomy; jl7 - Immunization history:: Client reports receiving the 2nd dose of the Covid vaccine. - Social history:: Smoking status: Patient denies any tobacco usage or history of. ROS: 09:49 Constitutional: Negative for fever, and chills. Neck: Negative for injury, pain, and ms3 swelling, Cardiovascular: Negative for chest pain, and palpitations. Respiratory: Negative for shortness of breath, cough, wheezing, and pleuritic chest pain, Abdomen/GI: Negative for abdominal pain, nausea, vomiting, diarrhea, and constipation, MS/Extremity: Negative for injury and deformity. 09:49 Skin: Positive for rash. 09:49 All other systems are negative. Exam: 09:49 Constitutional: This is a well developed, well nourished patient who is awake, alert, ms3 and in no acute distress. Head/Face: Normocephalic, atraumatic. Neck: Trachea midline, no cervical lymphadenopathy. Supple, full range of motion without nuchal rigidity, or vertebral point tenderness. No Meningismus. Chest/axilla: Normal chest wall appearance and motion. Nontender with no deformity. Cardiovascular: Regular rate and rhythm with a normal S1 and S2. No gallops, murmurs, or rubs. Normal PMI, no JVD. No pulse deficits. Respiratory: Lungs have equal breath sounds bilaterally, clear to auscultation and percussion. No rales, rhonchi or wheezes noted. No increased work of breathing, no retractions or nasal flaring. Abdomen/GI: Soft, non-tender, with normal bowel sounds. No distension or tympany. No guarding or rebound. No evidence of tenderness throughout. Neuro: Awake and alert, GCS 15, oriented to person, place, time, and situation. Cranial nerves II-XII grossly intact. Motor strength 5/5 in all extremities. Sensory grossly intact. Cerebellar exam normal. Normal gait. Psych: Awake, alert, with orientation to person, place and time. Behavior, mood, and affect are within normal limits. 09:49 Skin: cellulitis, that is moderate, on the left leg, injury, Skin tear of undetermined age on the anterior left lower leg. Vital Signs: 09:37 BP 212 / 92; Pulse 105; Resp 17; Temp 97.9; Pulse Ox 100% ; Weight 46.27 kg; Height 5 jl7 ft. 7 in. (170.18 cm); Pain 8/10; 09:51 Temp 98.5(O); vg1 11:25 BP 217 / 92; Pulse 97; Resp 15; Pulse Ox 99% on R/A; tp1 12:45 BP 177 / 78; Pulse 84; Resp 16; Pulse Ox 98% on R/A; tp1 09:37 Body Mass Index 15.98 (46.27 kg, 170.18 cm) 7 11:25 provider notified tp1 Procedures: 11:16 Peripheral line: by aseptic technique a peripheral line was placed in the left external ms3 jugular vein. MDM: 09:46 Patient medically screened. ms3 12:17 Data reviewed: vital signs, nurses notes, lab test result(s), and as a result, I will ms3 discharge patient. Counseling: I had a detailed discussion with the patient and/or guardian regarding: the historical points, exam findings, and any diagnostic results supporting the discharge/admit diagnosis, lab results, the need for outpatient follow up, to return to the emergency department if symptoms worsen or persist or if there are any questions or concerns that arise at home. Special discussion: I discussed with the patient/guardian in detail that at this point there is no indication for admission to the hospital. It is understood, however, that if the symptoms persist or worsen the patient needs to return immediately for re-evaluation. ED course: Discussed physical exam findings with patient and her son. Patient to follow up with PMD in 2-3 days. Patient understands/ agrees with plan. All questions answered. Return precautions discussed to include worsening symptoms, or any other concerns. Patient is a/o x4, nad, non-toxic, ambulatory in ED.. 01/08 09:47 Order name: CBC with Diff; Complete Time: 12:14 ms3 01/08 09:47 Order name: BMP; Complete Time: 12:14 ms3 Administered Medications: 11:43 Drug: cloNIDine 0.1 mg Route: PO; tp1 12:31 Follow up: Response: Blood pressure is unchanged tp1 12:59 Drug: Doxycycline 100 mg Route: PO; tp1 13:20 Follow up: Response: Medication administered at discharge. tp1 Disposition Summary: 01/08/22 12:17 Discharge Ordered Location: Home ms3 Condition: Stable ms3 Diagnosis - Cellulitis of left lower limb ms3 - Essential (primary) hypertension ms3 Followup: ms3 - With: Private Physician - When: 2 - 3 days - Reason: Recheck today's complaints Discharge Instructions: - Discharge Summary Sheet ms3 - Cellulitis, Adult ms3 - Hypertension, Adult ms3 Forms: - Medication Reconciliation Form ms3 - Thank You Letter ms3 - Antibiotic Education ms3 - Prescription Opioid Use ms3 Prescriptions: - Doxycycline Hyclate 100 mg Oral Tablet - take 1 tablet by ORAL route every 12 hours; 20 tablet; Refills: 0, Product ms3 Selection Permitted Signatures: Dispatcher [employer] Vineet Pickett RN RN jl7 Saqib Gunter DO DO ms3 Kristin Luu RN RN tp1 Corrections: (The following items were deleted from the chart) 09:40 09:37 PMHx: Dialysis; jlMckayla jl7
[2022-01-08] MEDS ORDERED: DOXYCYCLINE 100 MG CAP PO ONE (12:36)
[2022-01-10 18:27] VITALS: TEMP 98.5
[2022-01-10 18:42] VITALS: BP 177/78; O2SAT 98
== END 2022-01-08 13:20 | disposition home or self-care (01) ==
LOC: ER 09:27
DX: L03.116 Cellulitis of left lower limb (principal); I10 Essential (primary) hypertension; I12.0 Hypertensive chronic kidney disease with stage 5 chronic kidney disease or end stage renal disease; N18.6 End stage renal disease; Z99.2 Dependence on renal dialysis; Z79.82 Long term (current) use of aspirin; Z88.5 Allergy status to narcotic agent
CPT/HCPCS: 36415; 80048; 85025; 99284

== ENCOUNTER 2022-03-28 07:56 | Inpatient (IN) | payer OTHER ==
--- OUTSIDE RECORDS SUMMARY | 2022-03-28 08:03 | XMS REPORT | Continuity of Care Document ---
:1935 Author Organization [facility] t Address [address] [place] [address] Care Team Providers Name Role Phone ROXY JACKSON Primary Care Physician Unavailable PARKER VITALE Attending Clinician Unavailable ROXY JACKSON Attending Clinician Unavailable YUE HUNG Attending Clinician Unavailable Stanley Sanz MD Attending Clinician YESIKA DYER Attending Clinician Unavailable NICOLE RUBALCAVA Attending Clinician Unavailable NICOLE RUBALCAVA Admitting Clinician Unavailable Payers Payer Name Policy Type Policy Number Effective Date Expiration Date S mihir [facility] 53 [id number] [facility] ADVANTAGE - [facility] MEDICARE PART A [id number] 2000 \T\ B 00:00:00 MEDICARE-PART B 5 [id number] 2018 00:00:00 Problems Condition Condition Condition Status Onset Resolution Last Treating Co mments Source Name Details Category Date Date Treatment Clinician Date HTN HTN Disease Active [facility] (hypertens 3-04 [facility] kes ion) ion) 00:00: Medical 00 Center HLD HLD Disease Active [facility] (hyperlipi (hyperlipi 3-04 Klaudia kes demia) demia) 00:00: Medical Center CAD CAD Disease Active [facility] (coronary (coronary 3-04 [facility] artery artery 00:00: Medical disease) disease) 00 Center TIA TIA Disease Active [facility] (transient (transient 3-03 Klaudia kes ischemic ischemic 00:00: Medica l attack) attack) 00 [facility] Hip Hip Disease Active 2015-04 [facility] fracture fracture 0-10 ity of 00:00: [place] 00 [facility] Femur Femur Disease Active 2015-04 [facility] fracture, fracture, 0-08 ity of right right 00:00: [place] [facility] [id number] Right Problem Active [facility] sci[facility] nerve pain - [facility] [id number] Closed Problem Active Common displaced [facility] intertroch - [facility] fracture kes of left Medical femur with Center routine healing, subsequent encounter [id number] Pain of Problem Active Comm on left hip [facility] joint - [facility] [id number] 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 of thoracic [facility] [id number] Pain of Problem Active Comm on right hip [facility] joint pain - [facility] [id number] Scoliosis Problem Active Com mon of lumbar [facility] region due [facility] Medica l of spine Center in adult Allergies, Adverse Reactions, Alerts Allergy Allergy Status Severity Reaction(s) Onset Inactive Treating Comm ents Source Name Type Date Date Clinician Codeine Propensi Active Phosphat ty to 9-13 e adverse 00:00: reaction 00 to drug Codeine Propensi Active ty to 3-05 adverse 00:00: reaction 00 to drug Codeine Propensi Active [facility] adverse 00:00: Medical reaction 00 [facility] CODEINE DRUG Active Hallucinates 2015-04 Uni vers INGREDI 0-08 ity of 00:00: [place] 00 [facility] Codeine Propensi Active Hallucinatio 2015-04 U nivers ty to ns 0-08 ity of adverse 00:00: [place] reaction 00 [facility] s Branch codeine codeine Active Unknown [facility] Social History Social Habit Start Date Stop Date Quantity Comments Source History [facility] Alcohol Comment Medical C enter History of Tobacco [facility] - Use [facility] History SDOH 2018-06-16 2018-06-[address] [facility] Alcohol Frequency 00:00:00 00:00:00 Medical Center History [facility] 2018-06-16 2018-06-[address] [facility] Alcohol Std Drinks 00:00:00 00:00:00 Medica l Center History [facility] 2018-06-16 2018-06-[address] [facility] Alcohol Binge 00:00:00 00:00:[address] Tobacco use and 2018-06-15 2018-06-[address] Klaudia kes exposure 00:00:00 00:00:00 Medical Center Alcohol intake 2018-06-15 2018-06-15 [facility] Center (finding) Sex Assigned At [address] Klaudia kes 00:00:00 00:00:00 Medical Center Smoking Status Start Date Stop Date Source Never Smoker [facility] Medications Ordered Filled Start Stop Current Ordering Indication Dosage Frequency Signature Comments Components Source Medication Medication Date Date Medication? Clinician (SIG) Name Name TAKE 1 2022-0 No TABLET BY 8-22 MOUTH FOUR 00:00: TIMES A DAY 00 TAKE 1 2022-0 No TABLET BY 8-22 MOUTH FOUR 00:00: TIMES A DAY 00 TAKE 1 2022-0 No 650 TABLET BY 8-22 MOUTH FOUR 00:00: TIMES A DAY 00 Dose 2022-0 No Unknown 8-12 00:00: 00 Dose 2022-0 No Unknown 8-12 00:00: 00 Dose 2022-0 No Unknown 8-12 00:00: 00 Dose 2022-0 No Unknown 8- 00:00: 00 Dose 2022-0 No Unknown 8- 00:00: 00 Dose 2022-0 No Unknown 8-01 00:00: 00 furosemide 2022-0 No 1mg 40 mg 7-18 tablet 00:00: 00 mirtazapine 2022-0 No 1mg 15 mg 7-18 tablet 00:00: 00 Dose 2022-0 No Unknown 7-18 00:00: 00 Dose 2022-0 No Unknown 7-18 00:00: 00 Dose 2022-0 No Unknown 7-18 00:00: 00 furosemide 2022-0 No 1mg 40 mg 7-18 tablet 00:00: 00 mirtazapine 2022-0 No 1mg 15 mg 7-18 tablet 00:00: 00 Dose 2022-0 No Unknown 7-18 00:00: 00 Dose 2022-0 No Unknown 7-18 00:00: 00 Dose 2022-0 No Unknown 7-18 00:00: 00 furosemide 2022-0 No 1mg 40 mg 7-18 tablet 00:00: 00 mirtazapine 2022-0 No 1mg 15 mg 7-18 tablet 00:00: 00 Dose 2022-0 No Unknown 7-18 00:00: 00 Dose 2022-0 No Unknown 7-18 00:00: 00 Dose 2022-0 No Unknown 7-18 00:00: 00 Dose 2022-0 No Unknown 7-12 00:00: 00 Dose 2022-0 No Unknown 7-12 00:00: 00 Dose 2022-0 No Unknown 7-12 00:00: 00 amlodipine 2022-0 No 1mg 10 mg 6-24 tablet 00:00: 00 amlodipine 2022-0 No 1mg 10 mg 6-24 tablet 00:00: 00 amlodipine 2022-0 No 1mg 10 mg 6-24 tablet 00:00: 00 Dose 2022-0 No Unknown 6-03 00:00: 00 Dose 2022-0 No Unknown 6-03 00:00: 00 Remeron 15 2022-0 No 1mg mg tablet 6-03 00:00: 00 metoprolol 2022-0 No 1mg tartrate 50 3-21 mg tablet 00:00: 00 Dose 2022-0 No Unknown 3-21 00:00: 00 Dose 2022-0 No Unknown 3-21 00:00: 00 Dose 2022-0 No Unknown 3-21 00:00: 00 Dose 2022-0 No Unknown 3-21 00:00: 00 metoprolol 2022-0 No 1mg tartrate 50 3-21 mg tablet 00:00: 00 Dose 2022-0 No Unknown 3-21 00:00: 00 Dose 2022-0 No Unknown 3-21 00:00: 00 Dose 2022-0 No Unknown 3-21 00:00: 00 Dose 2022-0 No Unknown 3-21 00:00: 00 metoprolol 2022-0 No 1mg tartrate 50 3-21 mg tablet 00:00: 00 Remeron 15 2022-0 No 1mg mg tablet 3-21 00:00: 00 Dose 2-0 No Unknown 3-21 00:00: 00 Dose 2-0 No Unknown 3-21 00:00: 00 Dose 2-0 No Unknown 3-21 00:00: 00 Remeron 15 2020-1 No 1mg mg tablet 1-23 00:00: 00 Dose 2020-1 No Unknown 1-23 00:00: 00 Remeron 15 2020-1 No 1mg mg tablet 1-23 00:00: 00 Dose 2020-1 No Unknown 1-23 00:00: 00 Remeron 15 2020-1 No 1mg mg tablet 1-23 00:00: 00 Dose 2020-1 No Unknown 1-23 00:00: 00 Dose 2020-1 No Unknown 1-18 00:00: 00 cyanocobala 2020-1 No 1mcg/mL min (vit 1-18 B-12) 1,000 00:00: mcg/mL 00 injection solution Dose 2020-1 No Unknown 1-18 00:00: 00 cyanocobala 2020-1 No 1mcg/mL min (vit 1-18 B-12) 1,000 00:00: mcg/mL 00 injection solution Dose 2020-1 No Unknown 1-18 00:00: 00 [...] 1,000 00:00: mcg/mL 00 injection solution Dose 1-0 No Unknown 7-05 00:00: 00 Dose 2021-0 [...] 2021-0 No Unknown 7-05 00:00: 00 cyanocobala 1-0 No 1mcg/mL min (vit 7-05 B-12) 1,000 [...] 2021-0 No Unknown 7-05 00:00: 00 cyanocobala 1-0 No 1mcg/mL min (vit 7-05 B-12) 1,000 00:00: mcg/mL 00 injection solution atorvastati 1-0 No 1mg n 20 mg 6-24 tablet 00:00: 00 atorvastati 2021-0 No 1mg n 20 mg 6-24 tablet 00:00: 00 atorvastati 2021-0 No 1mg n 20 mg 6-24 tablet [...] Levo-T 25 2021-0 No 1mcg mcg tablet 09-09 00:00: 00 cyanocobala 2021-0 No 1mcg/mL min (vit 5-28 B-12) 1,000 00:00: mcg/mL 00 injection solution amlodipine 2021-0 No 1mg 10 mg 5-28 tablet 00:00: 00 Levo-T 25 2021-0 No 1mcg mcg tablet 28 00:00: 00 cyanocobala 2021-0 No 1mcg/mL min (vit 5-28 B-12) 1,000 00:00: mcg/mL 00 injection solution amlodipine 2020-0 No 1mg 10 mg 5-28 tablet 00:00: 00 Levo-T 25 1-0 No 1mcg mcg tablet 5-28 00:00: 00 cyanocobala 1-0 No 1mcg/mL min (vit 09-09 B-12) 1,000 00:00: mcg/mL 00 injection solution atorvastati 1-0 No 1mg n 20 mg 4-05 tablet 00:00: 00 metoprolol 2021-0 No 1mg tartrate 50 4-05 mg tablet 00:00: 00 Levo-T 25 1-0 No 1mcg mcg tablet 4-05 00:00: 00 gabapentin 2021-0 No 1mg 300 mg 4-05 capsule 00:00: 00 cyanocobala 2021-0 No 1mcg/mL min (vit 07-18 B-12) 1,000 00:00: mcg/mL 00 injection solution atorvastati 1-0 No 1mg n 20 mg 4-05 tablet 00:00: 00 metoprolol 2021-0 No 1mg tartrate 50 4-05 mg tablet 00:00: 00 Levo-T 25 1-0 No 1mcg mcg tablet 4-05 00:00: 00 gabapentin 2021-0 No 1mg 300 mg 4-05 capsule 00:00: 00 atorvastati 2021-0 No 1mg n 20 mg 4-05 tablet 00:00: 00 metoprolol 2021-0 No 1mg tartrate 50 4-05 mg tablet 00:00: 00 Levo-T 25 1-0 No 1mcg mcg tablet 4-05 00:00: 00 gabapentin 2021-0 No 1mg 300 mg 4-05 capsule 00:00: 00 cyanocobala 2021-0 No 1mcg/mL min (vit 07-18 B-12) 1,000 00:00: mcg/mL 00 injection solution cyanocobala 2021-0 No 1mcg/mL min (vit 07-18 B-12) 1,000 00:00: mcg/mL 00 injection solution atorvastati 2021-0 No 1mg n 20 mg 3-16 tablet 00:00: 00 Levo-T 25 2021-0 No 1mcg mcg tablet 3-16 00:00: 00 atorvastati 2021-0 No 1mg n 20 mg 3-16 tablet 00:00: 00 Levo-T 25 2021-0 No 1mcg mcg tablet 3-16 00:00: 00 atorvastati 2021-0 No 1mg n 20 mg 3-16 tablet 00:00: 00 Levo-T 25 2021-0 No 1mcg mcg tablet 3-16 00:00: 00 metoprolol 2021-0 No 1mg tartrate 50 1-14 mg tablet 00:00: 00 metoprolol 2021-0 No 1mg tartrate 50 1-14 mg tablet 00:00: 00 metoprolol 2021-0 No 1mg tartrate 50 1-14 mg tablet 00:00: 00 cyanocobala 2021-0 No 1mcg/mL min (vit 1-11 B-12) 1,000 00:00: mcg/mL 00 injection solution cyanocobala 2021-0 No 1mcg/mL min (vit 1-11 B-12) 1,000 00:00: mcg/mL 00 injection solution cyanocobala 2021-0 No 1mcg/mL min (vit 1-11 B-12) 1,000 00:00: mcg/mL 00 injection solution gabapentin 2020-1 No 1mg 300 mg 0-19 capsule 00:00: 00 gabapentin 2020-1 No 1mg 300 mg 0-19 capsule 00:00: 00 gabapentin 2020-1 No 1mg 300 mg 0-19 capsule 00:00: 00 meloxicam 2020-0 No 1mg 7.5 mg 6-15 tablet 00:00: 00 meloxicam 2020-0 No 1mg 7.5 mg 6-15 tablet 00:00: 00 meloxicam 2020-0 No 1mg 7.5 mg 6-15 tablet 00:00: 00 prasugrel 2020-0 No 1mg 10 mg 6-02 tablet 00:00: 00 metoprolol 2020-0 No 1mg tartrate 50 6-02 mg tablet 00:00: 00 amlodipine 2020-0 No 1mg 10 mg 6-02 tablet 00:00: 00 prasugrel 2020-0 No 1mg [...] No 1mcg mcg tablet 6-02 00:00: 00 atorvastati 2020-0 No 1mg n 20 mg 6-02 tablet 00:00: 00 hydralazine 2020-0 No 5mg 25 mg 6-02 tablet 00:00: 00 hydrochloro 2020-0 No 1mg thiazide 6-02 12.5 mg 00:00: tablet 00 alendronate 2020-0 No 1mg 70 mg 6-02 tablet 00:00: 00 Levo-T 25 2020-0 No 1mcg mcg tablet 6- 00:00: 00 prasugrel 2020-0 No 1mg 10 [...] No 1mcg mcg tablet 3-18 00:00: 00 prasugrel 2020-0 No 1mg 10 [...] No 1mcg mcg tablet 3-18 00:00: 00 prasugrel 2020-0 No 1mg 10 [...] thiazide 3-05 12.5 mg 00:00: tablet 00 alendronate 2020-0 [...] thiazide 3-05 12.5 mg 00:00: tablet 00 alendronate 2020-0 [...] 00:00: tablet 00 Tylenol 8 Tylenol 8 2018- Yes [facility] 2 tablets Common Hour Hour 11-06 [place] as needed [facility] 00:00: - [facility] Tylenol 8 Tylenol 8 2018-0 No 2{table TID Tylenol 8 Hour 650 MG Hour 650 MG 11-06 ts_as_n Hour 650 00:00: eeded} MG 00 Tylenol 8 Tylenol 8 2018-0 No 2{table TID Tylenol 8 Hour 650 MG Hour 650 MG 7-25 ts_as_n Hour 650 00:00: eeded} MG 00 metoprolol 2018-0 Yes 50mg QD Take [address] (LOPRESSOR) 3-05 by mouth [facility] 25 MG 20:29: daily. Medical tablet 27 [facility] prasugr Yes 10mg QD Take [address] (EFFIENT) 3-05 by [facility] 10 mg Tab 20:29: daily. Medica l tablet 27 [facility] levothyroxi Yes 25ug Take [address] ne 3-05 mcg by [facility]ukes (SYNTHROID, 20:29: mouth Medic al LEVOTHROID) 27 Every Center 25 MCG morning on tablet an empty stomach. losartan Yes 100mg QD Take [address] (COZAAR) 3-05 mg by [facility] 100 MG 20:29: mouth Medical tablet 27 daily. [facility] metoprolol Yes 50mg QD Take [address] (LOPRESSOR) 3-05 by mouth [facility] 25 MG 20:29: daily. Medical tablet 27 [facility] prasugr Yes 10mg QD Take [address] (EFFIENT) 3-05 by mouth [facility] 10 mg Tab 20:29: daily. Medica l tablet 27 [facility] levothyroxi Yes 25ug Take [address] ne 3-05 mcg by [facility]ukes (SYNTHROID, 20:29: mouth Medic al LEVOTHROID) 27 Every Center 25 MCG morning on tablet an empty stomach. losartan Yes 100mg QD Take [address] (COZAAR) 3-05 mg by [facility] 100 MG 20:29: mouth Medical tablet 27 daily. [facility] metoprolol 0 Yes 50mg QD Take [address] (LOPRESSOR) 3-05 by mouth [facility] 25 MG 20:29: daily. Medical tablet 27 [facility] prasugrel Yes 10mg QD Take [address] (EFFIENT) 3-05 by mouth [facility] 10 mg Tab 20:29: daily. Medica l tablet 27 [facility] levothyroxi Yes 25ug Take [address] ne 3-05 mcg by [facility]ukes (SYNTHROID, 20:29: mouth Medic al LEVOTHROID) 27 Every Center 25 MCG morning on tablet an empty stomach. losartan 2018-0 Yes 100mg QD Take [address] (COZAAR) 3-05 mg by [facility] 100 MG 20:29: mouth Medical tablet 27 daily. [facility] metoprolol 0 Yes 50mg QD Take [address] (LOPRESSOR) 3-05 by mouth [facility] 25 MG 20:29: daily. Medical tablet 27 [facility] prasugr 0 Yes 10mg QD Take [address] (EFFIENT) 3-05 by mouth [facility] 10 mg Tab 20:29: daily. Medica l tablet 27 [facility] levothyroxi 0 Yes 25ug Take [address] ne 3-05 mcg by [facility]ukes (SYNTHROID, 20:29: mouth Medic al LEVOTHROID) 27 Every Center 25 MCG morning on tablet an empty stomach. losartan Yes 100mg QD Take [address] (COZAAR) 3-05 mg by [facility] 100 MG 20:29: mouth Medical tablet 27 daily. [facility] metoprolol Yes 50mg QD Take [address] (LOPRESSOR) 3-05 by mouth [facility] 25 MG 20:29: daily. Medical tablet 27 [facility] prasugr Yes 10mg QD Take [address] (EFFIENT) 3-05 by mouth [facility] 10 mg Tab 20:29: daily. Medica l tablet 27 [facility] levothyrox Yes 25ug Take [address] ne 3-05 mcg by [facility]ukes (SYNTHROID, 20:29: mouth Medic al LEVOTHROID) 27 Every Center 25 MCG morning on tablet an empty stomach. losartan Yes 100mg QD Take [address] (COZAAR) 3-05 mg by [facility] 100 MG 20:29: mouth Medical tablet 27 daily. [facility] metoprolol 0 Yes 50mg QD Take [address] (LOPRESSOR) 3-05 by mouth [facility] 25 MG 20:29: daily. Medical tablet 27 [facility] prasugr Yes 10mg QD Take [address] (EFFIENT) 3-05 by mouth [facility] 10 mg Tab 20:29: daily. Medica l tablet 27 [facility] levothyroxi 0 Yes 25ug Take [address] ne 3-05 mcg by [facility]ukes (SYNTHROID, 20:29: mouth Medic al LEVOTHROID) 27 Every Center 25 MCG morning on tablet an empty stomach. losartan 0 Yes 100mg QD Take [address] (COZAAR) 3-05 mg by [facility] 100 MG 20:29: mouth Medical tablet 27 daily. [facility] metoprolol 0 Yes 50mg QD Take [address] (LOPRESSOR) 3-05 by mouth [facility] 25 MG 20:29: daily. Medical tablet 27 [facility] prasugr Yes 10mg QD Take [address] (EFFIENT) 3-05 by mouth [facility] 10 mg Tab 20:29: daily. Medica l tablet 27 [facility] levothyroxi Yes 25ug Take [address] ne 3-05 mcg by [facility]ukes (SYNTHROID, 20:29: mouth Medic al LEVOTHROID) 27 Every Center 25 MCG morning on tablet an empty stomach. losartan Yes 100mg QD Take [address] (COZAAR) 3-05 mg by [facility] 100 MG 20:29: mouth Medical tablet 27 daily. [facility] metoprolol Yes 50mg QD Take [address] (LOPRESSOR) 3-05 by mouth [facility] 25 MG 20:29: daily. Medical tablet 27 [facility] prasugr Yes 10mg QD Take [address] (EFFIENT) 3-05 by mouth [facility] 10 mg Tab 20:29: daily. Medica l tablet 27 [facility] levothyroxi Yes 25ug Take [address] ne 3-05 mcg by [facility] (SYNTHROID, 20:29: mouth Medic al LEVOTHROID) 27 Every Center 25 MCG morning on tablet an empty stomach. losartan Yes 100mg QD Take [address] (COZAAR) 3-05 mg by [facility] 100 MG 20:29: mouth Medical tablet 27 daily. [facility] metoprolol 0 Yes 50mg QD Take [address] (LOPRESSOR) 3-05 by mouth [facility] 25 MG 20:29: daily. Medical tablet 27 [facility] prasugr Yes 10mg QD Take [address] (EFFIENT) 3-05 by mouth [facility] 10 mg Tab 20:29: daily. Medica l tablet 27 [facility] levothyroxi Yes 25ug Take [address] ne 3-05 mcg by [facility] (SYNTHROID, 20:29: mouth Medic al LEVOTHROID) 27 Every Center 25 MCG morning on tablet an empty stomach. losartan 2019-0 Yes 100mg QD Take [address] (COZAAR) 3-05 mg by [facility] 100 MG 20:29: mouth Medical tablet 27 daily. Center metoprolol 2019-0 Yes 50mg QD Take [address] (LOPRESSOR) 3-05 by mouth [facility] 25 MG 20:29: daily. Medical tablet 27 [facility] prasugr [id number] Yes 10mg QD Take [address] (EFFIENT) 3-05 by mouth [facility] 10 mg Tab 20:29: daily. Medica l tablet 27 [facility] levothyroxi 0 Yes 25ug Take [address] ne 3-05 mcg by [facility]ukes (SYNTHROID, 20:29: mouth Medic al LEVOTHROID) 27 Every Center 25 MCG morning on tablet an empty stomach. losartan 2018- Yes 100mg QD Take [address] (COZAAR) 3-05 mg by [facility] 100 MG 20:29: mouth Medical tablet 27 daily. [facility] metoprolol Yes 50mg QD Take [address] (LOPRESSOR) 3-05 by mouth [facility] 25 MG 20:29: daily. Medical tablet 27 [facility] prasugr 0 Yes 10mg QD Take [address] (EFFIENT) 3-05 by mouth [facility] 10 mg Tab 20:29: daily. Medica l tablet 27 [facility] levothyroxi Yes 25ug Take [address] ne 3-05 mcg by [facility]ukes (SYNTHROID, 20:29: mouth Medic al LEVOTHROID) 27 Every Center 25 MCG morning on tablet an empty stomach. losartan 2018-0 Yes 100mg QD Take [address] (COZAAR) 3-05 mg by [facility] 100 MG 20:29: mouth Medical tablet 27 daily. [facility] metoprolol 0 Yes 50mg QD Take [address] (LOPRESSOR) 3-05 by mouth [facility] 25 MG 20:29: daily. Medical tablet 27 [facility] prasugr [id number] Yes 10mg QD Take [address] (EFFIENT) 3-05 by mouth [facility] 10 mg Tab 20:29: daily. Medica l tablet 27 [facility] levothyroxi 0 Yes 25ug Take [address] ne 3-05 mcg by [facility] (SYNTHROID, 20:29: mouth Medic al LEVOTHROID) 27 Every Center 25 MCG morning on tablet an empty stomach. losartan 2019-0 Yes 100mg QD Take [address] (COZAAR) 3-05 mg by [facility] 100 MG 20:29: mouth Medical tablet 27 daily. Center metoprolol Yes 50mg QD Take [address] (LOPRESSOR) 3-05 by mouth [facility] 25 MG 20:29: daily. Medical tablet 27 Center prasugrel Yes 10mg QD Take 10 mg [...] MG 20:29: mouth Medical tablet 27 daily. [facility] pentazocine 2015-04 Yes 1{tbl} Take 1 Un [...] Tucker not Common Sodium Sodium [facility]illi[facility] defined [facility] Metoprolol Metoprolol Yes Tucker not C ommon Succinate Succinate [facility]illiard defined [facility] Atorvastati Atorvastati Yes Tucker not Common n Calcium n Calcium [facility]illiard defined [facility] Losartan Losartan Yes Tucker not Commo n Potassium Potassium [facility]illiard defined [facility] Prasugrel Prasugrel Yes Tucker not Com mon HCl HCl [facility]illiard defined [facility] Aspirin Aspirin Yes Tucker not Common [place] defined [facility] Levothyroxi Levothyroxi Yes Tucker not Common ne Sodium ne Sodium [place] defined [facility] Levothyroxi Levothyroxi No Levothyrox ne Sodium ne Sodium ine Sodium Eliquis Eliquis No Eliquis hydrALAZINE hydrALAZINE No hydrALAZIN HCl HCl E HCl NIFEdipine NIFEdipine No NIFEdipine Cyclobenzap Cyclobenzap No Cyclobenza rine HCl rine HCl ramon HCl Prasugrel Prasugrel No Prasugrel HCl HCl HCl Atorvastati Atorvastati No Atorvastat n Calcium n Calcium in Calcium Aspirin Aspirin No Aspirin Alendronate Alendronate No Alendronat Sodium Sodium e Sodium Metoprolol Metoprolol No Metoprolol Succinate Succinate Succinate Losartan Losartan No Losartan Potassium Potassium Potassium Carvedilol Carvedilol No Carvedilol Levothyroxi Levothyroxi No Levothyrox ne Sodium ne Sodium ine Sodium Eliquis Eliquis No Eliquis hydrALAZINE hydrALAZINE No hydrALAZIN HCl HCl E HCl NIFEdipine NIFEdipine No NIFEdipine Cyclobenzap Cyclobenzap No Cyclobenza rine HCl rine HCl ramon HCl Prasugrel Prasugrel No Prasugrel HCl HCl HCl Atorvastati Atorvastati No Atorvastat n Calcium n Calcium in Calcium Aspirin Aspirin No Aspirin Alendronate Alendronate No Alendronat Sodium Sodium e Sodium Metoprolol Metoprolol No Metoprolol Succinate Succinate Succinate Losartan Losartan No Losartan Potassium Potassium Potassium Carvedilol Carvedilol No Carvedilol Immunizations Ordered Immunization Filled Immunization Date Status Commen ts Source Name Name Preet FELIX-Jeri 2021-02-08 Completed Vaccine 00:00:00 Preet COVID-19 2021-02-08 Completed Vaccine 00:00:00 Preet COVID-19 2021-02-08 Completed Vaccine 00:00:00 Preet COVID-19 2020-05-06 Completed Vaccine 00:00:00 Preet COVID-19 2020-05-06 Completed Vaccine 00:00:00 Preet COVID-19 2020-05-06 Completed Vaccine 00:00:00 Influenza, seasonal, 2020-01-18 Completed inj 00:00:00 Influenza, seasonal, 2020-01-18 Completed inj 00:00:00 Influenza, seasonal, 2020-01-18 Completed inj 00:00:00 Preet COVID-19 Unknown Completed Vaccine Preet COVID-19 Unknown Completed Vaccine Preet COVID-19 Unknown Completed Vaccine Vital Signs Vital Name Observation Time Observation Value Comments Source height 2021-12-14 08:00:00 67 [in_i] [facility] weight 2021-12-14 08:00:00 102 [lb_av] [facility] temperature 2021-12-14 08:00:00 97.2 [degF] [facility] bmi 2021-12-14 08:00:00 15.97 kg/m2 [facility] blood pressure 2021-12-14 08:00:00 110 mm[Hg] [facility] - systolic [facility] blood pressure 2021-12-14 08:00:00 68 mm[Hg] [facility] - diastolic [facility] BP Systolic 2022-01-16 14:05:00 150 mm[Hg] BP Diastolic 2022-01-16 14:05:00 67 mm[Hg] Weight Measured 2022-01-16 14:05:00 108.00 pounds Height Measured 2022-01-16 14:05:00 63.50 inches Body Temperature 2022-01-16 14:05:00 98.30 degrees Heart Rate 2022-01-16 14:05:00 93.00 /min Respiratory Rate 2022-01-16 14:05:00 BP Systolic 2021-10-30 15:42:00 180 mm[Hg] BP [...] [facility] [id number] PCV13) [code = PNEUMOCOCCAL 65+ YRS (1 of 1 - [id number]_[id number] PCV13)] Future Scheduled 2000-10-14 PNEUMOCOCCAL 65+ [facility] Test 00:00:00 ([address] [place] [address] [id number]_[id number] PCV13) [code = PNEUMOCOCCAL 65+ YRS (1 of 1 - [id number] PCV13)] Future Scheduled 2000-10-14 PNEUMOCOCCAL 65+ Y[facility] Test 00:00:00 ([address] [place] [address] [id number]_Zyilgpn PCV13) [code = PNEUMOCOCCAL 65+ YRS (1 of 1 - [id number]_Vonyycx PCV13)] Future Scheduled 2000-10-14 PNEUMOCOCCAL 65+ [facility] Test 00:00:00 ([address] [place] [address] [id number]_Xmyskjz PCV13) [code = PNEUMOCOCCAL 65+ YRS (1 of 1 - [id number]_Amlhiqe PCV13)] Future Scheduled 2000-10-14 PNEUMOCOCCAL 65+ [facility] Test 00:00:00 ([address] [place] [address] [id number]_Dgnzytf PCV13) [code = PNEUMOCOCCAL 65+ YRS (1 of 1 - [id number]_Aoxomvo PCV13)] Future Scheduled 2000-10-14 PNEUMOCOCCAL 65+ [facility] Test 00:00:00 (1 of 1 [facility] [id number]_Shywfiv PCV13) [code = PNEUMOCOCCAL 65+ YRS (1 of 1 - [id number]_Hymgraj PCV13)] Future Scheduled 2000-10-14 PNEUMOCOCCAL 65+ [facility] Test 00:00:00 ([facility] [id number]_Qghrbpw PCV13) [code = PNEUMOCOCCAL 65+ YRS (1 of 1 - [id number]_Pqbrcxy PCV13)] Future Scheduled 2000-10-14 PNEUMOCOCCAL 65+ [facility] Test 00:00:00 ([facility] [id number]_Udkotyd PCV13) [code = PNEUMOCOCCAL 65+ YRS (1 of 1 - [id number]_Qzrdoyu PCV13)] Future Scheduled 2000-10-14 PNEUMOCOCCAL 65+ [facility] Test 00:00:00 (1 of 1 - Medical Center [id number]_Lupdayg PCV13) [code = PNEUMOCOCCAL 65+ YRS (1 of 1 - [id number]_Hlnzfox PCV13)] Future Scheduled 1985-10-14 SHINGLES VACCINES (1 [...] Goal Plan of Care Note [code = 86483-9] Goal Plan of Care Note [code = 23753-0] Goal Plan of Care Note [code = 55332-4] Goal Plan of Care Note [code = 95476-1] Goal Plan of Care Note [code = 32768-4] Goal Plan of Care Note [code = 28424-0] Goal Plan of Care Note [code = 51497-3] Goal Plan of Care Note [code = 89827-4] Goal Plan of Care Note [code = 52377-7] Goal Plan of Care Note [code = 96578-4] Goal Plan of Care Note [code = 49059-5] Goal Plan of Care Note [code = 31324-4] Goal Plan of Care Note [code = 71778-9] Goal Plan of Care Note [code = 42721-0] Goal Plan of Care Note [code = 23734-8] Goal Plan of Care Note [code = 31274-0] Goal Plan of Care Note [code = 52078-2] Goal Plan of Care Note [code = 54924-7] Goal Plan of Care Note [code = 53235-6] Goal Plan of Care Note [code = 47747-4] Goal Plan of Care Note [code = 27478-7] Goal Plan of Care Note [code = 42569-0] Goal Plan of Care Note [code = 83615-8] Goal Plan of Care Note [code = 28871-1] Goal Plan of Care Note [code = 83834-3] Goal Plan of Care Note [code = 83594-7] Goal Plan of Care Note [code = 39199-5] Goal Plan of Care Note [code = 12068-6] Goal Plan of Care Note [code = 27999-9] Goal Plan of Care Note [code = 48137-7] Goal Plan of Care Note [code = 39331-3] Goal Plan of Care Note [code = 52432-8] Goal Plan of Care Note [code = 62838-7] Goal Plan of Care Note [code = 10507-5] Goal Plan of Care Note [code = 34453-9] Goal Plan of Care Note [code = 61632-1] Goal Plan of Care Note [code = 80414-5] Goal Plan of Care Note [code = 58592-5] Goal Plan of Care Note [code = 83117-7] Goal Plan of Care Note [code = 03616-7] Goal Plan of Care Note [code = 34700-4] Goal Plan of Care Note [code = 95274-1] Goal Plan of Care Note [code = 17435-9] Goal Plan of Care Note [code = 07740-1] Goal Plan of Care Note [code = 33611-8] Goal Plan of Care Note [code = 76704-4] Goal Plan of Care Note [code = 94440-0] Goal Plan of Care Note [code = 35426-6] Goal Plan of Care Note [code = 04803-8] Goal Plan of Care Note [code = 09396-1] Goal Plan of Care Note [code = 19934-1] Goal Plan of Care Note [code = 43257-3] Goal Plan of Care Note [code = 89672-6] Goal Plan of Care Note [code = 29221-7] Goal Plan of Care Note [code = 19355-8] Goal Plan of Care Note [code = 75087-0] Goal Plan of Care Note [code = 85024-7] Goal Plan of Care Note [code = 26081-3] Goal Plan of Care Note [code = 78596-1] Goal Plan of Care Note [code = 24913-3] Goal Plan of Care Note [code = 46939-9] Goal Plan of Care Note [code = 95005-5] Goal Plan of Care Note [code = 67916-9] Goal Plan of Care Note [code = 79929-5] Goal Plan of Care Note [code = 12878-4] Goal Plan of Care Note [code = 26052-3] Goal Plan of Care Note [code = 59732-7] Goal Plan of Care Note [code = 92684-5] Goal Plan of Care Note [code = 35859-7] Goal Plan of Care Note [code = 96905-5] Goal Plan of Care Note [code = 36097-3] Goal Plan of Care Note [code = 54883-6] Goal Plan of Care Note [code = 47927-8] Goal Plan of Care Note [code = 64419-8] Goal Plan of Care Note [code = 70393-9] Goal Plan of Care Note [code = 80198-7] Goal Plan of Care Note [code = 65578-6] Goal Plan of Care Note [code = 44401-3] Goal Plan of Care Note [code = 35604-5] Goal Plan of Care Note [code = 34067-4] Goal Plan of Care Note [code = 71958-3] Goal Plan of Care Note [code = 54293-7] Goal Plan of Care Note [code = 51748-4] Goal Plan of Care Note [code = 98918-1] Goal Plan of Care Note [code = 71816-4] Goal Plan of Care Note [code = 11776-8] Goal Plan of Care Note [code = 89631-9] Goal Plan of Care Note [code = 18795-3] Goal Plan of Care Note [code = 80721-7] Goal Plan of Care Note [code = 09894-4] Encounters Start End Encounter Admission Attending Care Care Encounter Source Date/Time Date/Time Type Type Clinicians Facility Department ID 2021-12-14 Outpatient IAM STLMLC STLMLC [id number] Common 08:02:01 , [facility] AAKASHAKSHM - CH I I [facility] 2021-11-01 Outpatient STLMLC STLMLC [id number] Common 08:28:00 [facility] 2021-05-10 Outpatient STLMLC STLMLC [id number] Common 14:37:15 [facility] 2022-01-16 2022-01-16 Outpatient EDA VERAS [id number] Maynor 13:58:33 13:58:33 1004 F Will 2022-01-16 2022-01-16 Outpatient [id number] e9 [id number] 00:00:00 00:00:00 Visit 4eec-4016 eec-4016-8 -803c-5f9 03c-5f94ae 2us17t128 11b717 2021-12-15 2021-12-15 (TEL) STLMLC STLC [id number] Co mmon 00:00:00 00:00:00 [facility] 2021-12-14 2021-12-14 NON-BILLAB STLMLC STLMLC [id number] Common 00:00:00 00:00:00 LE VISIT [facility] 2021-12-12 2021-12-12 Outpatient [id number]- [id number] a0 4x5z58-f 00:00:00 00:00:00 Visit i5o2-79m7 2a4-26d5-p -r61e-x24 99a-c59f17 t24j5k8gj b8a9bd 2021-10-30 2021-10-30 Outpatient 3oq30o53- [id number] 8e i36s25-9 00:00:00 00:00:00 Visit 2b9f-9a1i n2r-5q6k-q -k865-679 [id number] 4126xv4pl 3fd9fb 2021-08-01 2021-08-01 [id number] Univers 09:00:00 09:00:00 ROXY [id number] [facility] 2021-08-01 2021-08-01 Outpatient Ananda [facility] [id number] Univers 09:00:00 09:00:00 ROXY [facility] 2021-07-01 2021-07-01 Outpatient HANSA HUNG [id number] [place] 00:00:00 00:00:00 YUE Seybol d 2021-06-25 2021-06-25 Outpatient HANSA HUNG [id number] [place] 00:00:00 00:00:00 YUE Seybol d 2020-10-03 2020-10-03 Telephone [facility] [id number] Univers 00:00:00 00:00:00 [facility] 350.1.13.10 y of Surgical 4.2.7.2.686 Hi as Specialti [id number] In dical [address] 2020-04-29 2020-04-29 [facility] [id number] N-20 Univers 15:00:00 15:00:00 YESIKA [id number] [facility] 2020-04-29 2020-04-29 [facility] [id number] Univers 15:00:00 15:00:00 YESIKA [facility] 2018-11-06 2018-11-06 Out[facility] [id number] Common 11:00:00 11:00:00 [facility] 2018-10-09 2018-10-09 [id number] Common 10:30:00 10:30:00 [facility] Results Test Description Test Time Test Comments Results Result Comments Source CULTURE, URINE 2022-01-19 SPECIMEN NUMBER: 12:40:01 [id number] CULTURE, URINE SPECIMEN NUMBER: [id number] SPECIMEN COMMENT: URINE SOURCE: URINE REPORT STATUS: FINAL ISOLATE NUMBER 1: ORGANISM: 01/18/2022 >100,000 CFU/ML GRAM NEGATIVE BACILLI IDENTIFICATION: 01/19/2022 ESCHERICHIA COLI E. COLI AMOX ICILLIN/CA SENSITIVE <=8/4AMPICILLIN RESISTANT >16CEFAZOLIN SENSITIVE <=2CEFTRIAXONE SENSITIVE <=1CIPROFLOXACIN SENSITIVE <=1LEVOFLOXACIN SENSITIVE <=2NITROFURANTOIN SENSITIVE <=32PIP/TAZOBAC SENSITIVE <=16TETRACYCLINE RESISTANT >8TOBRAMYCIN SENSITIVE <=4TRIMETH/SULFA SENSITIVE <=2/38 NOTE: NUMBERS DISPLAYED REPRESENT MINIMUM INHIBITORY CONCENTRATION (FÁTIMA) WHICH IS EXPRESSED IN MCG/ML. UNLESS OTHERWISE INDICATED, ALL TESTING PERFORMED [facility] [employer] [address] [place] [address] ATOMIC WELDER: KIESHA LEI M.D. CLIA NUMBER [id number] [facility] [place]. [id number] CULTURE, URINE 2022-01-19 00:00:00 Test Item Value Reference Range Interpretation Comme nts CULTURE, URINE (test code = 10043) SPECIMEN NUMBER: [id number] CULTURE, [id number] 00:00:00 Test Item Value Reference Range Interpretation Comments CULTURE, URINE (test SPECIMEN NUMBER: code = 50715) [id number] COMPREHENSIVE METABOLIC [id number] 00:00:00 Test Item Value Reference Range Interpretation Comments GLUCOSE (test code = 2217) 123 MG/DL BUN (test code = 2208) 81 MG/DL CREATININE (test code = 2214) 5.82 MG/DL eGFR AMER. (test code = 7 ML/MIN/1.73 66119) eGFR (2020 CKD-EPI) (test code 6 ML/MIN/1.73 = 81223) CALC BUN/CREAT (test code = 14 RATIO 2235) SODIUM (test code = 2231) 141 MEQ/L POTASSIUM (test code = 2228) 8.0 MEQ/L CHLORIDE (test code = 2215) 109 MEQ/L CARBON DIOXIDE (test code = 16 MEQ/L 2206) CALCIUM (test code = 2209) 8.3 MG/DL PROTEIN, TOTAL (test code = 6.1 G/DL 2229) ALBUMIN (test code = 2201) 3.2 G/DL CALC GLOBULIN (test code = 2.9 G/DL 2240) CALC A/G RATIO (test code = 1.1 RATIO 2234) BILIRUBIN, TOTAL (test code = 0.4 MG/DL 2206) ALKALINE PHOSPHATASE (test code 76 U/L = 2204) AST (test code = 2218) 37 U/L ALT (test code = 2219) 12 U/L COMPREHENSIVE METABOLIC [id number] 00:00:00 Test Item Value Reference Range Interpretation Comments GLUCOSE (test code = 2217) 123 MG/DL BUN (test code = 2208) 81 MG/DL CREATININE (test code = 2214) 5.82 MG/DL eGFR AMER. (test code = 7 ML/MIN/1.73 02596) eGFR (2020 CKD-EPI) (test code 6 ML/MIN/1.73 = 59264) CALC BUN/CREAT (test code = 14 RATIO 2235) SODIUM (test code = 2231) 141 MEQ/L POTASSIUM (test code = 2228) 8.0 MEQ/L CHLORIDE (test code = 2215) 109 MEQ/L CARBON DIOXIDE (test code = 16 MEQ/L 2205) CALCIUM (test code = 2209) 8.3 MG/DL PROTEIN, TOTAL (test code = 6.1 G/DL 2228) ALBUMIN (test code = 2201) 3.2 G/DL CALC GLOBULIN (test code = 2.9 G/DL 2240) CALC A/G RATIO (test code = 1.1 RATIO 2234) BILIRUBIN, TOTAL (test code = 0.4 MG/DL 2206) ALKALINE PHOSPHATASE (test code 76 U/L = 2204) AST (test code = 2218) 37 U/L ALT (test code = 2219) 12 U/L COMPREHENSIVE METABOLIC [id number] 00:00:00 Test Item Value Reference Range Interpretation Comments GLUCOSE (test code = 2217) 123 MG/DL BUN (test code = 2208) 81 MG/DL CREATININE (test code = 2214) 5.82 MG/DL eGFR AMER. (test code = 7 ML/MIN/1.73 28216) eGFR (2020 CKD-EPI) (test code 6 ML/MIN/1.73 = 65067) CALC BUN/CREAT (test code = 14 RATIO 2235) SODIUM (test code = 2231) 141 MEQ/L POTASSIUM (test code = 2228) 8.0 MEQ/L CHLORIDE (test code = 2215) 109 MEQ/L CARBON DIOXIDE (test code = 16 MEQ/L 220) CALCIUM (test code = 2209) 8.3 MG/DL PROTEIN, TOTAL (test code = 6.1 G/DL 2228) ALBUMIN (test code = 2201) 3.2 G/DL CALC GLOBULIN (test code = 2.9 G/DL 2240) CALC A/G RATIO (test code = 1.1 RATIO 2234) BILIRUBIN, TOTAL (test code = 0.4 MG/DL 2206) ALKALINE PHOSPHATASE (test code 76 U/L = 2203) AST (test code = 2218) 37 U/L ALT (test code = 2219) 12 U/L COMPREHENSIVE METABOLIC [id number] 00:00:00 Test Item Value Reference Range Interpretation Comments GLUCOSE (test code = 2217) 123 MG/DL BUN (test code = 2208) 81 MG/DL CREATININE (test code = 2214) 5.82 MG/DL eGFR AMER. (test code = 7 ML/MIN/1.73 57233) eGFR (2020 CKD-EPI) (test code 6 ML/MIN/1.73 = 96707) CALC BUN/CREAT (test code = 14 RATIO 2235) SODIUM (test code = 2231) 141 MEQ/L POTASSIUM (test code = 2228) 8.0 MEQ/L CHLORIDE (test code = 2215) 109 MEQ/L CARBON DIOXIDE (test code = 16 MEQ/L 220) CALCIUM (test code = 2209) 8.3 MG/DL PROTEIN, TOTAL (test code = 6.1 G/DL 2228) ALBUMIN (test code = 2201) 3.2 G/DL CALC GLOBULIN (test code = 2.9 G/DL 2240) CALC A/G RATIO (test code = 1.1 RATIO 2234) BILIRUBIN, TOTAL (test code = 0.4 MG/DL 2206) ALKALINE PHOSPHATASE (test code 76 U/L = 220) AST (test code = 2218) 37 U/L ALT (test code = 2219) 12 U/L COMPREHENSIVE METABOLIC [id number] 00:00:00 Test Item Value Reference Range Interpretation Comments GLUCOSE (test code = 2217) 123 MG/DL BUN (test code = 2208) 81 MG/DL CREATININE (test code = 2214) 5.82 MG/DL eGFR AMER. (test code = 7 ML/MIN/1.73 59708) eGFR (2020 CKD-EPI) (test code 6 ML/MIN/1.73 = 10460) CALC BUN/CREAT (test code = 14 RATIO 2235) SODIUM (test code = 2231) 141 MEQ/L POTASSIUM (test code = 2228) 8.0 MEQ/L CHLORIDE (test code = 2215) 109 MEQ/L CARBON DIOXIDE (test code = 16 MEQ/L 2205) CALCIUM (test code = 2209) 8.3 MG/DL PROTEIN, TOTAL (test code = 6.1 G/DL 2228) ALBUMIN (test code = 220) 3.2 G/DL CALC GLOBULIN (test code = 2.9 G/DL 2239) CALC A/G RATIO (test code = 1.1 RATIO 2234) BILIRUBIN, TOTAL (test code = 0.4 MG/DL 2206) ALKALINE PHOSPHATASE (test code 76 U/L = 2204) AST (test code = 2218) 37 U/L ALT (test code = 2219) 12 U/L COMPREHENSIVE METABOLIC [id number] 00:00:00 Test Item Value Reference Range Interpretation Comments GLUCOSE (test code = 2217) 123 MG/DL BUN (test code = 2208) 81 MG/DL CREATININE (test code = 2214) 5.82 MG/DL eGFR AMER. (test code = 7 ML/MIN/1.73 15600) eGFR (2020 CKD-EPI) (test code 6 ML/MIN/1.73 = 25485) CALC BUN/CREAT (test code = 14 RATIO [...] A/G RATIO (test code = 1.1 RATIO 2233) BILIRUBIN, TOTAL (test code = 0.4 MG/DL 2206) ALKALINE PHOSPHATASE (test code 76 U/L = [...] code = 1.33 NG/DL 2823) CBC W/AUTO [id number] 00:00:00 Test Item Value Reference Range Interpretation [...] code = 1015) 297 K/UL CBC W/AUTO [id number] 00:00:00 Test Item Value Reference Range Interpretation [...] code = 1015) 297 K/UL CBC W/AUTO [id number] 00:00:00 Test Item Value Reference Range Interpretation [...] code = 1015) 297 K/UL COMPREHENSIVE METABOLIC [id number] 00:00:00 Test Item Value Reference Range Interpretation Comments GLUCOSE (test code = 2217) 92 MG/DL BUN (test code = 2208) 29 MG/DL CREATININE (test code = 2214) 1.53 MG/DL eGFR AMER. (test code 36 ML/MIN/1.73 = 03998) eGFR NON- AMER. (test 31 ML/MIN/1.73 code = 75020) CALC BUN/CREAT (test code = 19 RATIO [...] BILIRUBIN, TOTAL (test code = 0.3 MG/DL 2207) ALKALINE PHOSPHATASE (test 73 U/L code = 2204) AST (test code = 2218) 27 U/L ALT (test code = 2219) 18 U/L COMPREHENSIVE METABOLIC [id number] 00:00:00 Test Item Value Reference Range Interpretation Comments GLUCOSE (test code = 2217) 92 MG/DL BUN (test code = 2208) 29 MG/DL CREATININE (test code = 2214) 1.53 MG/DL eGFR AMER. (test code 36 ML/MIN/1.73 = 69766) eGFR NON- AMER. (test 31 ML/MIN/1.73 code = 74790) CALC BUN/CREAT (test code = 19 RATIO [...] ALT (test code = 2219) 18 U/L [id number] 00:00:00 Test Item Value Reference Range Interpretation Comments TSH, THIRD GENERATION (test code 3.330 UIU/ML = 2821) [id number] 00:00:00 Test Item Value Reference Range Interpretation Comments TSH, THIRD GENERATION (test code 3.330 UIU/ML = 2821) [id number] 00:00:00 Test Item Value Reference Range Interpretation [...] code = 1.33 NG/DL 2823) CBC W/AUTO [id number] 00:00:00 Test Item Value Reference Range Interpretation [...] code = 1015) 297 K/UL CBC W/AUTO [id number] 00:00:00 Test Item Value Reference Range Interpretation [...] code = 1015) 297 K/UL CBC W/AUTO [id number] 00:00:00 Test Item Value Reference Range Interpretation [...] code = 1015) 297 K/UL COMPREHENSIVE METABOLIC [id number] 00:00:00 Test Item Value Reference Range Interpretation Comments GLUCOSE (test code = 2217) 92 MG/DL BUN (test code = 2208) 29 MG/DL CREATININE (test code = 2214) 1.53 MG/DL eGFR AMER. (test code 36 ML/MIN/1.73 = 84447) eGFR NON- AMER. (test 31 ML/MIN/1.73 code = 54614) CALC BUN/CREAT (test code = 19 RATIO [...] code = 2219) 18 U/L COMPREHENSIVE METABOLIC [id number] 00:00:00 Test Item Value Reference Range Interpretation Comments GLUCOSE (test code = 2217) 92 MG/DL BUN (test code = 2208) 29 MG/DL CREATININE (test code = 2214) 1.53 MG/DL eGFR AMER. (test code 36 ML/MIN/1.73 = 70024) eGFR NON- AMER. (test 31 ML/MIN/1.73 code = 90248) CALC BUN/CREAT (test code = 19 RATIO [...] ALT (test code = 2219) 18 U/L [id number] 00:00:00 Test Item Value Reference Range Interpretation Comments TSH, THIRD GENERATION (test code 3.330 UIU/ML = 2821) [id number] 00:00:00 Test Item Value Reference Range Interpretation Comments TSH, THIRD GENERATION (test code 3.330 UIU/ML = 2821) [id number] 00:00:00 Test Item Value Reference Range Interpretation [...] code = 1.33 NG/DL 2823) CBC W/AUTO [id number] 00:00:00 Test Item Value Reference Range Interpretation [...] code = 1015) 297 K/UL CBC W/AUTO [id number] 00:00:00 Test Item Value Reference Range Interpretation [...] code = 1015) 297 K/UL CBC W/AUTO [id number] 00:00:00 Test Item Value Reference Range Interpretation [...] code = 1015) 297 K/UL COMPREHENSIVE METABOLIC [id number] 00:00:00 Test Item Value Reference Range Interpretation Comments GLUCOSE (test code = 2217) 92 MG/DL BUN (test code = 2208) 29 MG/DL CREATININE (test code = 2214) 1.53 MG/DL eGFR AMER. (test code 36 ML/MIN/1.73 = 61986) eGFR NON- AMER. (test 31 ML/MIN/1.73 code = 99066) CALC BUN/CREAT (test code = 19 RATIO [...] code = 2219) 18 U/L COMPREHENSIVE METABOLIC [id number] 00:00:00 Test Item Value Reference Range Interpretation Comments GLUCOSE (test code = 2217) 92 MG/DL BUN (test code = 2208) 29 MG/DL CREATININE (test code = 2214) 1.53 MG/DL eGFR AMER. (test code 36 ML/MIN/1.73 = 97290) eGFR NON- AMER. (test 31 ML/MIN/1.73 code = 67923) CALC BUN/CREAT (test code = 19 RATIO [...] ALT (test code = 2219) 18 U/L [id number] 00:00:00 Test Item Value Reference Range Interpretation Comments TSH, THIRD GENERATION (test code 3.330 UIU/ML = 2821) [id number] 00:00:00 Test Item Value Reference Range Interpretation Comments TSH, THIRD GENERATION (test code 3.330 UIU/ML = 2821) [id number] 00:00:00 Test Item Value Reference Range Interpretation Comments TSH, THIRD GENERATION (test code 3.330 UIU/ML = 2821) FREE T4 (THYROXINE)2020-02-02 00:00:00 Test Item Value Reference Range Interpretation Comments FREE T4 (THYROXINE) (test code = 1.33 NG/DL 2823) CALCIUM, [id number] 06:48:00 Test Item Value Reference Range Interpretation Comments CALCIUM IONIZED (BEAKER) (test 1.05 mmol/L 1.12-1.27 L code = 698) PH, BLOOD (BEAKER) (test code = 7.43 1810) [id number] 06:12:00 Test Item Value Reference Range Interpretation Comments PHOSPHORUS (BEAKER) (test code = 3.4 mg/dL 2.3-4.7 604) [id number] 06:12:00 Test Item Value Reference Range Interpretation Comments MAGNESIUM (BEAKER) (test code = 1.7 mg/dL 1.6-2.6 627) BASIC METABOLIC [id number] 06:12:00 Test Item Value Reference Range Interpretation [...] PATIEN TS. CBC W/PLT COUNT & AUTO [id number] 05:34:00 Test Item Value Reference Range Interpretation [...] code = 2801) MR, MRA, BRAIN, WITHOUT [id number] 10:59:00Reason for exam:->Ischemic Stroke EvaluationFINAL REPORT MRA Head CLINICAL HISTORY: Stroke TECHNIQUE: MRA of the head utilizing 3-D pjjs-jm-avqjgr technique, with 3-D reconstructions. COMPARISON: None IMPRESSION: Allowing for mild motion degradation, there is no evidence for a tejon of Lopez proximal branch vessel occlusion. Distal branch vessel occlusions cannot be excluded. Aneurysms cannot be excluded. MRA Neck CLINICAL HISTORY: Stroke TECHNIQUE: MRA of the neck utilizing 2-D and 3-D pdte-mq-ydypkx technique, with 3-D reconstructions. COMPARISON: None IMPRESSION: [...] partially reconstituted by cervical muscular branches. Signed:Arianna Rosasort Verified Date/Time: 06/16/2018 10:59:34 Reading Location: [address] Neuro Reading Room MR, MRA, NECK, WITHOUT IV [id number] 10:59:00Reason for exam:->Ischemic Stroke EvaluationFINAL REPORT MRA Head CLINICAL HISTORY: Stroke TECHNIQUE: MRA of the head utilizing 3-D pprf-bd-fxsikb technique, with 3-D reconstructions. COMPARISON: None IMPRESSION: Allowing for mild motion degradation, there is no evidence for a tejon of Lopez proximal branch vessel occlusion. Distal branch vessel occlusions cannot be excluded. Aneurysms cannot be excluded. MRA Neck CLINICAL HISTORY: Stroke TECHNIQUE: MRA of the neck utilizing 2-D and 3-D ahkt-ro-pmicir technique, with 3-D reconstructions. COMPARISON: None IMPRESSION: [...] Rosas Verified Date/Time: 06/16/2018 10:59:34 Reading Location: [address] Neuro Reading Room MR, BRAIN, WITHOUT [id number] 10:52:00Reason for exam:->Ischemic Stroke EvaluationFINAL REPORT MRI [...] MDReport Verified Date/Time: 06/16/2018 10:52:22 Reading Location: [facility] C013V Neuro Reading Room HEMOGLOBIN [id number] 09:43:00 Test Item Value Reference Range Interpretation Comments HEMOGLOBIN A1C (BEAKER) (test code = 5.9 % 4.3-6.1 368) VITAMIN [id number] 06:40:00 Test Item Value Reference Range Interpretation Comments VITAMIN B12 (BEAKER) (test code = 375 pg/mL 213-816 774) TSH/FREE T4 IF [id number] 05:45:00 Test Item Value Reference Range Interpretation Comments THYROID STIMULATING HORMONE 4.44 uIU/mL 0.35-4.94 (BEAKER) (test code = 772) LIPID [id number] 05:27:00 Test Item Value Reference Range Interpretation [...]
[2022-03-28 09:00] LABS: Absolute Lymphocytes (CBC) 0.7 K/uL (0.7-4.9); Hematocrit 37.4 % (36.0-45.0); Lymphocytes % 11.3 % (15.3-44.8); MCV 94.4 fL (80-100); MPV 9.5 fL (7.6-11.3); RBC Red Blood Cell Count 3.96 M/uL (3.86-4.86)
[2022-03-28 09:01] LABS: Protime INR 0.96
[2022-03-28 09:30] LABS: SARS-COV-2 RT PCR NEGATIVE (NEGATIVE)
--- NOTE | 2022-03-28 09:35 | RAD REPORT ---
EXAM DESCRIPTION: RAD - Chest Single View - 03/28/2022 9:06 am CLINICAL HISTORY: SOB Chest pain. COMPARISON: Chest Single View dated 10/08/2021; Chest Single View dated 05/03/2021; Chest Single View dated 05/02/2021; Chest Single View dated 04/07/2021 FINDINGS: Portable technique limits examination quality. Moderate bilateral pulmonary opacities have mildly improved since the previous study from September. Heart is moderately enlarged. Small bilateral pleural effusions, greater on the left. Right-sided venous c atheter is unchanged. IMPRESSION: Moderate CHF versus volume overload pattern. Findings are mildly improved since the prio r study.
--- NOTE | 2022-03-28 09:49 | EDPHYS ---
Physician Documentation [facility] Name: Isadora Jeffery Age: 86 yrs Sex: Female : 1935 Arrival Date: 03/28/2022 Time: 07:58 Bed 5 Private MD: Brown Pina R ED Physician Aj Basilio HPI: 03/28 08:14 This 86 yrs old Female presents to ER via Unassigned with complaints of Diarrhea, jmm Shortness Of Breath. 08:14 The patient presents to the emergency department with diarrhea. Onset: The jmm symptoms/episode began/occurred gradually, 2 day(s) ago. Possible causes: unknown. This is an 86 year old female that presents to the ED with complaints of multiple episodes of diarrhea beginning approx 2 days ago. Currently has complaints of sob. Patient is scheduled for dialysis today. Dr. Porter is the patient's service control operator. . Historical: - Allergies: 08:14 Codeine; ss - Home Meds: 11:29 aspirin 81 mg Oral cap 1 cap once daily [Active]; atorvastatin 20 mg Oral tab 1 tab vg1 once daily [Active]; carvedilol 12.5 mg Oral tab 1 tab 2 times per day [Active]; furosemide 40 mg Oral tab 1 tab 2 times per day [Active]; irbesartan 150 mg Oral tab 1 tab once daily [Active]; levothyroxine 25 mcg cap 1 cap once daily [Active]; mirtazapine 15 mg Oral TbDi 1 tab once daily [Active]; prasugrel 10 mg Oral tab 1 tab once daily [Active]; losartan 50 mg oral tab 2 times per day [Active]; hydralazine 25 mg Oral tab 2 tab 2 times per day [Active]; sevelamer carbonate 800 mg oral tab 1 tab 3 times per day [Active]; - PMHx: 08:14 Dialysis; M-W-F; Hypertension; Hyperlipidemia; Depression; Hypothyroidism; CVA; kidney ss disease; - PSHx: 08:14 Appendectomy; Cholecystectomy; Total abdominal hysterectomy; ss - Immunization history:: Client reports receiving the 2nd dose of the Covid vaccine. - Social history:: Smoking status: Patient denies any tobacco usage or history of. ROS: 08:14 Constitutional: Positive for body aches, chills. jmm 08:14 Respiratory: Positive for cough, shortness of breath. 08:14 Abdomen/GI: Positive for diarrhea. 08:14 All other systems are negative. Exam: 08:14 Constitutional: This is a well developed, well nourished patient who is awake, alert, jmm and in no acute distress. Head/Face: atraumatic. Eyes: EOMI, no conjunctival erythema appreciated ENT: Moist Mucus Membranes Neck: Trachea midline, Supple Chest/axilla: Normal chest wall appearance and motion. Cardiovascular: Regular rate and rhythm. No edema appreciated Respiratory: Normal respirations, no respiratory distress appreciated Abdomen/GI: Non distended Back: Normal ROM Skin: General appearance color normal MS/ Extremity: Moves all extremities, no obvious deformities appreciated, no edema noted to the lower extremities Neuro: Awake and alert Psych: Behavior is normal, Mood is normal, Patient is cooperative and pleasant Vital Signs: 08:13 BP 193 / 101; Pulse 94; Resp 20; Pulse Ox 96% on R/A; Weight 44 kg; Height 5 ft. 7 in. ss (170.18 cm); Pain 0/10; 08:51 BP 183 / 86; Pulse 86; Resp 21; Temp 97.6; Pulse Ox 95% on R/A; vg1 09:06 BP 175 / 92; Pulse 80; Resp 20; Pulse Ox 95% on R/A; vg1 10:00 BP 180 / 97; Pulse 88; Resp 24; Pulse Ox 97% on R/A; vg1 10:30 BP 179 / 86; Pulse 83; Resp 24; Pulse Ox 96% on R/A; vg1 11:03 BP 184 / 89; Pulse 84; Resp 22; Pulse Ox 97% on 2 lpm NC; vg1 11:34 BP 187 / 95; Pulse 90; Resp 26; Pulse Ox 96% on 2 lpm NC; vg1 08:13 Body Mass Index 15.19 (44.00 kg, 170.18 cm) ss 10:30 room air vg1 11:03 medical air vg1 11:34 medical air vg1 MDM: 08:04 Patient medically screened. [facility] 09:46 Data reviewed: vital signs, nurses notes. Counseling: I had a detailed discussion with [facility] the patient and/or guardian regarding: the historical points, exam findings, and any diagnostic results supporting the discharge/admit diagnosis, lab results, the need for further work-up and treatment in the hospital. ED course: I discussed the patient with Jovon, whom accepted the patient to Dr. Irina williamson. . 03/28 08:12 Order name: Basic Metabolic Panel; Complete Time: 10:31 jm 03/28 08:12 Order name: CBC with Diff; Complete Time: 09:06 [facility] 03/28 08:12 Order name: LFT's; Complete Time: 10: [facility] 03/28 08:12 Order name: Magnesium; Complete Time: 10:31 [facility] 03/28 08:12 Order name: NT PRO-BNP; Complete Time: 10:31 [facility] 03/28 08:12 Order name: PT-INR; Complete Time: 09:06 [facility] 03/28 08:12 Order name: Troponin HS; Complete Time: 10:31 [facility] 03/28 08:12 Order name: COVID-19/FLU A+B; Complete Time: 09:30 [facility] 03/28 10:36 Order name: Magnesium; Complete Time: 12:15 [facility] 03/28 10:36 Order name: Phosphorus; Complete Time: 12:15 [facility] 03/28 10:36 Order name: Urinalysis [facility] 03/28 10:36 Order name: Basic Metabolic Panel [facility] 03/28 10:36 Order name: Basic Metabolic Panel [facility] 03/28 10:36 Order name: CBC with Automated Diff [facility] 03/28 08:12 Order name: XRAY Chest (1 view); Complete Time: 09:36 [facility] 03/28 08:12 Order name: EKG; Complete Time: 08:13 [facility] 03/28 08:12 Order name: Cardiac monitoring; Complete Time: 08:49 [facility] 03/28 08:12 Order name: EKG - Nurse/Tech; Complete Time: 08:49 [facility] 03/28 08:12 Order name: IV Saline Lock; Complete Time: 08:49 [facility] 03/28 08:12 Order name: Labs collected and sent; Complete Time: 08:49 [facility] 03/28 08:12 Order name: O2 Per Protocol; Complete Time: 08:49 [facility] 03/28 08:12 Order name: O2 Sat Monitoring; Complete Time: 08:49 [facility] 03/28 09:21 Order name: Labs - recollect needed: recollect green top; Complete Time: 09:37 bd 03/28 10:36 Order name: CONS Physician Consult EDMS 03/28 10:36 Order name: Renal EDMS 03/28 10:36 Order name: CBC with Automated Diff EDMS 03/28 10:38 Order name: NT PRO-BNP EDMS 03/28 10:38 Order name: NT PRO-BNP EDMS Administered Medications: 11:20 Drug: Albuterol - atroVENT (ipratropium) (3:1) (2.5 mg - 0.5 mg) 3 ml Route: Nebulizer; vg1 11:46 Follow up: Response: No adverse reaction; No change in condition vg1 Disposition Summary: 03/28/22 09:48 Hospitalization Ordered Hospitalization Status: Inpatient Admission [facility] Provider: Crystal Thorpe Location: Telemetry/MedSur (Inpatient) [facility] Condition: Stable jmm Problem: new jmm Symptoms: are unchanged [facility] Bed/Room Type: Standard [facility] Room Assignment: 218(03/28/22 12:09) dw Diagnosis - End Stage Renal Disease jmm - Volume Overload jmm - Hyperkalemia [facility] Discharge Instructions: - Discharge Summary Sheet [facility] Forms: - Family Work Release jmm - Medication Reconciliation Form jm - SBAR form [facility] Addendum: 04/01/2022 15:01 Co-signature as Attending Physician, Aj Basilio MD I agree with the assessment and c welch plan of care. Signatures: Dispatcher [employer] EDWY Araseli Garcia Diana, RN RN dw Anderson, Corey, MD MD cha Mickail, Joel, PA PA jmm Smirch, Shelby, RN RN ss Garcia, Victoria RN RN vg1 Corrections: (The following items were deleted from the chart) 03/28 12:09 09:48 [facility] dw
--- NOTE | 2022-03-28 09:49 | ER ---
Nurse's Notes [facility] Name: Isadora Jeffery Age: 86 yrs Sex: Female : 1935 Arrival Date: 03/28/2022 Time: 07:58 Bed 5 Private MD: Brown Pina R Diagnosis: End Stage Renal Disease;Volume Overload;Hyperkalemia Presentation: 03/28 08:13 Chief complaint: Patient states: Diarrhea that began 2 days ago, now c/o generalized ss weakness. Due for HD today. Denies fever. Coronavirus screen: Client denies travel out of the [place] in the last 14 days. Ebola Screen: Patient denies exposure to infectious person. Patient denies travel to an Ebola-affected area in the 21 days before illness onset. Initial Sepsis Screen: Does the patient meet any 2 criteria? No. Patient's initial sepsis screen is negative. Does the patient have a suspected source of infection? No. Patient's initial sepsis screen is negative. Risk Assessment: Do you want to hurt yourself or someone else? Patient reports no desire to harm self or others. Onset of symptoms was March 26, 2022. 08:13 Method Of Arrival: Ambulatory ss 08:13 Acuity: ROMELIA 2 ss Historical: - Allergies: 08:14 Codeine; ss - Home Meds: 11:29 aspirin 81 mg Oral cap 1 cap once daily [Active]; atorvastatin 20 mg Oral tab 1 tab vg1 once daily [Active]; carvedilol 12.5 mg Oral tab 1 tab 2 times per day [Active]; furosemide 40 mg Oral tab 1 tab 2 times per day [Active]; irbesartan 150 mg Oral tab 1 tab once daily [Active]; levothyroxine 25 mcg cap 1 cap once daily [Active]; mirtazapine 15 mg Oral TbDi 1 tab once daily [Active]; prasugrel 10 mg Oral tab 1 tab once daily [Active]; losartan 50 mg oral tab 2 times per day [Active]; hydralazine 25 mg Oral tab 2 tab 2 times per day [Active]; sevelamer carbonate 800 mg oral tab 1 tab 3 times per day [Active]; - PMHx: 08:14 Dialysis; M-W-F; Hypertension; Hyperlipidemia; Depression; Hypothyroidism; CVA; kidney ss disease; - PSHx: 08:14 Appendectomy; Cholecystectomy; Total abdominal hysterectomy; ss - Immunization history:: Client reports receiving the 2nd dose of the Covid vaccine. - Social history:: Smoking status: Patient denies any tobacco usage or history of. Screenin:40 [facility] ED Fall Risk Assessment (Adult) History of falling in the last 3 months, vg1 including since admission No falls in past 3 months (0 pts) Confusion or Disorientation No (0 pts) Intoxicated or Sedated No (0 pts) Impaired Gait No (0 pts) Mobility Assist Device Used Yes (1 pt) Altered Elimination No (0 pt) Score/Fall Risk Level 0 - 2 = Low Risk Oriented to surroundings, Maintained a safe environment, Educated pt \T\ family on fall prevention, incl call for assistance when getting out of bed. Abuse screen: Denies threats or abuse. Nutritional screening: No deficits noted. Tuberculosis screening: No symptoms or risk factors identified. Fall Risk. Assessment: 08:40 General: Appears in no apparent distress. comfortable, Behavior is calm, cooperative. vg1 Pain: Complains of pain in right lower quadrant and left lower quadrant Pain currently is 2 out of 10 on a pain scale. Quality of pain is described as crampy, Pain began 2-3 days ago. Neuro: Level of Consciousness is awake, alert, obeys commands. Cardiovascular: Patient's skin is warm and dry. Respiratory: Airway is patent Respiratory effort is even, unlabored, Breath sounds are clear bilaterally. GI: Abdomen is flat, Stools are reported to be diarrhea. Reports diarrhea, since x 2 days Patient currently denies nausea, vomiting. : No signs and/or symptoms were reported regarding the genitourinary system. EENT: No signs and/or symptoms were reported regarding the EENT system. EENT: No signs and/or symptoms were reported regarding the EENT system. Derm: Skin is thin, Skin is pink, warm \T\ dry. Musculoskeletal: Circulation, motion, and sensation intact. 09:45 Reassessment: Patient appears in no apparent distress at this time. No changes from vg1 previously documented assessment. Patient and/or family updated on plan of care and expected duration. Pain level reassessed. Patient is alert, oriented x 3, equal unlabored respirations, skin warm/dry/pink. 10:45 Reassessment: Patient and/or family updated on plan of care and expected duration. Pain vg1 level reassessed. Patient is alert, oriented x 3, equal unlabored respirations, skin warm/dry/pink. Pt c/o shortness of breath, pt at 97% RA, notified provider, pt placed on medical air at 2L NC. 10:55 Reassessment: called Dr Porter in regards of pt having SOB, and wanting to know time vg1 frame of dialysis; Provider unavailable at this time, message left with medical superintendent at [place] office. 12:00 Reassessment: pt taken to dialysis. vg1 12:18 Reassessment: attempted to call report. vg1 Vital Signs: 08:13 BP 193 / 101; Pulse 94; Resp 20; Pulse Ox 96% on R/A; Weight 44 kg; Height 5 ft. 7 in. ss (170.18 cm); Pain 0/10; 08:51 BP 183 / 86; Pulse 86; Resp 21; Temp 97.6; Pulse Ox 95% on R/A; vg1 09:06 BP 175 / 92; Pulse 80; Resp 20; Pulse Ox 95% on R/A; vg1 10:00 BP 180 / 97; Pulse 88; Resp 24; Pulse Ox 97% on R/A; vg1 10:30 BP 179 / 86; Pulse 83; Resp 24; Pulse Ox 96% on R/A; vg1 11:03 BP 184 / 89; Pulse 84; Resp 22; Pulse Ox 97% on 2 lpm NC; vg1 11:34 BP 187 / 95; Pulse 90; Resp 26; Pulse Ox 96% on 2 lpm NC; vg1 08:13 Body Mass Index 15.19 (44.00 kg, 170.18 cm) ss 10:30 room air vg1 11:03 medical air vg1 11:34 medical air vg1 ED Course: 07:58 Patient arrived in ED. as 07:59 Brown Pina MD is Private Physician. as 08:03 Zaheer Krause PA is PHCP. m 08:03 Aj Basilio MD is Attending Physician. jmm 08:14 Triage completed. ss 08:14 Arm band placed on left wrist. ss 08:19 Prema Chris, RN is Primary Nurse. vg1 08:40 Patient has correct armband on for positive identification. Placed in gown. Bed in low vg1 position. Call light in reach. Side rails up X2. Adult w/ patient. Client placed on continuous cardiac and pulse oximetry monitoring. NIBP monitoring applied. 08:40 No provider procedures requiring assistance completed. vg1 08:51 Inserted saline lock: 22 gauge in right wrist, using aseptic technique. ,using aseptic vg1 technique. Completed by ED Staff Blood collected. 09:08 XRAY Chest (1 view) In Process Unspecified. EDMS 09:47 Crystal Thorpe MD is Hospitalizing Provider. rodrigo 12:39 IV discontinued, intact, bleeding controlled, No redness/swelling at site. Pressure vg1 dressing applied. Administered Medications: 11:20 Drug: Albuterol - atroVENT (ipratropium) (3:1) (2.5 mg - 0.5 mg) 3 ml Route: Nebulizer; vg1 11:46 Follow up: Response: No adverse reaction; No change in condition vg1 Medication: 08:40 VIS not applicable for this client. vg1 Outcome: 09:48 Decision to Hospitalize by Provider. janie 12:39 Admitted to Med/surg room 218, Report called to Luzmaria harper 12:39 Condition: good 12:39 Instructed on the need for admit. 12:40 Patient left the ED. vg1 Signatures: Dispatcher [employer] EDMS Zaheer Karuse PA PA jmm Martinez, Amelia as Smirch, Shelby, RN RN Prema Torres RN RN vg1
[2022-03-28 10:13] LABS: ALT/SGPT 84 U/L (13-56); AST/SGOT 84 U/L (15-37); Albumin 3.3 g/dL (3.4-5.0); Alkaline Phosphatase 135 U/L (45-117); BUN Blood Urea Nitrogen 83 mg/dL (7-18); Bicarbonate 21 mmol/L (21-32); Bilirubin Direct 0.4 mg/dL (0-0.2); Bilirubin Total 0.9 mg/dL (0.2-1.0); Glomerular Filtration Rate 5 ml/min (=/>90); Glucose Level 120 mg/dL (74-106); Magnesium 2.2 mg/dL (1.6-2.4); Protein, Total 6.9 g/dL (6.4-8.2); Sodium Level 132 mmol/L (136-145)
[2022-03-28 10:14] LABS: Potassium 5.8 mmol/L (3.5-5.1)
[2022-03-28 10:26] LABS: NT PRO-BNP > 175000 pg/mL (<450)
[2022-03-28] MEDS ORDERED: HYDROCODONE/APAP 5/325 MG TAB PO PRN (10:26)
[2022-03-28] MEDS ORDERED: ACETAMINOPHEN 325 MG TABLET PO PRN (10:26)
[2022-03-28] MEDS ORDERED: CYCLOBENZAPRINE 10 MG TAB PO PRN (10:28)
[2022-03-28] MEDS ORDERED: LABETALOL 20 MG/4ML SYRINGE IV PRN (10:30)
[2022-03-28] MEDS ORDERED: ONDANSETRON 4 MG/2 ML VIAL IV PRN (10:33)
--- NOTE | 2022-03-28 10:36 | P.HP ---
Certification for Inpatient Patient admitted to: Inpatient With expected LOS: >2 Midnights Patient will require the following post-hospital care: None Practitioner: I am a practitioner with admitting privileges, knowledge of patient current condition, hospital course, and medical plan of care. Services: Services provided to patient in accordance with Admission requirements found in Title 42 Section 412.3 of the Code of Federal Regulations Patient History Date of Service: 03/28/22 Reason for admission: Shortness of breath and diarrhea History of Present Illness: Patient is an 86-year-old female with a past medical history significant for ESRD, hyperlipidemia, depression, CVA, hypertension, hypothyroidism who presents with complaint of diarrhea and shortness of breath. Patient reported that she has been having diarrhea for the past 3 days. Patient reported that her last dialysis was last week. Patient is a poor historian and unable to provide accurate details. Patient is on MWF dialysis schedule. Patient reported associated signs and symptoms of fatigue and weakness. Patient denies any other signs or symptoms. Symptoms are aggravated or relieved by nothing. Patient decided to present to the hospital due to worsening symptoms. Allergies codeine Allergy (Severe, Verified 10/31/21 23:06) Nausea/Vomiting Home Medications: Cholecalciferol (Vitamin D3) [Vitamin D 5,000 IU Cap*] 1 tab PO DAILY 11/02/21 Mirtazapine [Remeron*] 15 mg PO BEDTIME 11/02/21 Prasugrel HCl 10 mg PO DAILY 11/02/21 Sevelamer Carbonate [Renvela*] 800 mg PO TIDWM 11/02/21 calcitrioL [Rocaltrol] 2 tab PO DAILY 11/02/21 carvediloL [Coreg*] 12.5 mg PO BID 11/02/21 Apixaban [Eliquis *] 2.5 mg PO BID 11/08/21 Calcium Carbonate/Vitamin D3 [Oscal 500 + Vit D 200 Iu Tab*] 1 tab PO BIDWM tab 11/08/21 Docusate [Colace Cap*] 100 mg PO BID cap 11/08/21 Ensure High Protein 237 ml PO DAILY can 11/08/21 Epoetin [Retacrit] 10,000 unit SQ M,W,F vial 11/08/21 Heparin [Heparin 1,000 units/mL *] 4,000 unit IV EVERY HD PRN vial 11/08/21 Nifedipine Xl [Procardia XL*] 60 mg PO DAILY tab 11/17/21 Cyclobenzaprine [Flexeril*] 5 mg PO BIDP PRN tab 11/21/21 Epoetin [Retacrit] 10,000 unit SQ M,W,F vial 11/21/21 Heparin [Heparin 1,000 units/mL *] 4,000 unit IV EVERY HD PRN vial 11/21/21 Hydralazine HCl 25 mg PO TID #90 11/21/21 Hydrocodone 5/APAP 325 [[place] 5/325*] 1 tab PO Q8H PRN #15 tab 11/21/21 Losartan Potassium [Cozaar*] 50 mg PO BID 11/21/21 carvediloL [Coreg*] 12.5 mg PO BID tab 11/21/21 - Past Medical/Surgical History Diabetic: No -: Hypertension -: Hyperlipidemia -: History CVA -: Carotid arterial disease with prior stent -: CAD -: Hypothyroidism -: Chronic diastolic CHF -: Depression with anxiety -: Chronic pain -: ESRD on HD followed by Dr. Pablo -: Carotid stent -: Right partial hip replacement Psychosocial/ Personal History: Patient is a . She lives by herself. - Family History Father -: Stroke Mother -: Hypertension, Diabetes - Social History Smoking Status: Unknown if ever smoked Alcohol use: No CD- Drugs: No Caffeine use: Yes Place of Residence: Home Review of Systems General: Weakness, Other (fatigue) Eyes: Unremarkable ENT: Unremarkable Respiratory: Shortness of Breath Cardiovascular: Unremarkable Gastrointestinal: Diarrhea Musculoskeletal: Unremarkable Integumentary: Unremarkable Neurological: Unremarkable Lymphatics: Unremarkable Physical Examination - Physical Exam General: Alert, In no apparent distress, Oriented x3, Cooperative HEENT: Atraumatic, PERRLA, Mucous membr. moist/pink, EOMI, Sclerae nonicteric Neck: Supple, 2+ carotid pulse no bruit, No LAD, Without JVD or thyroid abnormality Respiratory: Diminished Cardiovascular: No edema, Normal S1 S2 Capillary refill: <2 Seconds Gastrointestinal: Normal bowel sounds, Non-distended, No tenderness Musculoskeletal: No clubbing, No swelling, No contractures, No tenderness Integumentary: No rashes, No significant lesion, No tenderness/swelling Neurological: Normal speech, Normal tone, Normal affect Lymphatics: No axilla or inguinal lymphadenopathy - Studies Laboratory Data (last 24 hrs) 03/28/22 09:35: Sodium 132 L, Potassium 5.8 H*, BUN 83 H, Creatinine 7.25 H*, Glucose 120 H, Magnesium 2.2, Total Bilirubin 0.9, AST 84 H, ALT 84 H, Alkaline Phosphatase 135 H 03/28/22 08:43: PT 10.6, INR 0.96 03/28/22 08:43: WBC 6.20, Hgb 12.0, Hct 37.4, Plt Count 150 L Assessment and Plan - Plan --Volume overload. Patient on MWF schedule. Nephrology consulted. Patient scheduled for dialysis today. Further management per well drill operator. --ESRD. Further management per well drill operator. --Acute on chronic diastolic CHF exacerbation. Continue dialysis per well drill operator recommendation. Daily weight and strict I/O. --Diarrhea. Stool studies pending to rule out any infectious process. Continue supportive care. --Hyperlipidemia. Continue statin. --Depression\anxiety disorder. Continue home medication. --History of CVA\CAD with stents. Continue Eliquis, aspirin and Effient. --Hypothyroidism. Continue home medication. --Hyperkalemia. Kayexalate x1 dose given in the ER. Patient scheduled for dialysis. Further management per Rake Operator. --Elevated troponin. Likely secondary to demand ischemia. Will trend troponin levels. Telemetry to monitor for any significant arrhythmia. --Hypertension. Poorly controlled. Continue home medications and labetalol as needed. --DVT prophylaxis with Eliquis. Discharge Plan: Home Plan to discharge in: Greater than 2 days - Advance Directives Does patient have a Living Will: No Does patient have a Durable POA for Healthcare: Yes - Code Status/Comfort Care Code Status Assessed: Yes Physician Review: Patient Assessed, Agree with Above Assessment and Plan Critical Care: No
[2022-03-28] MEDS ORDERED: ALBUTEROL 2.5 MG/3 ML NEB SOL ONE (11:18)
[2022-03-28] MEDS ORDERED: IPRATROPIUM BROM 0.5MG/2.5ML ONE (11:19)
[2022-03-28] MEDS ORDERED: HYDRALAZINE HCL 20 MG/ML VIAL IV PRN ×2 (11:23→11:25)
[2022-03-28] MEDS ORDERED: FUROSEMIDE 40 MG/4 ML VIAL IV ONE (11:26)
[2022-03-28] MEDS ORDERED: SOD POLYSTYREN SUL 15 GM/60 ML UCUP PO ONE (11:30)
[2022-03-28] MEDS: SEVELAMER CARBONATE 800 MG TABLET PO SCH ×2 (12:00→18:28)
[2022-03-28 12:08] LABS: Magnesium 2.1 mg/dL (1.6-2.4); Phosphorus 4.5 mg/dL (2.5-4.9)
[2022-03-28] MEDS: HYDRALAZINE HCL 25 MG TABLET PO SCH ×3 (14:00→20:50)
--- NOTE | 2022-03-28 16:43 | P.CNS ---
Date of Consult: 03/28/22 Reason for Consult: ESRD, hyperkalemia, acute pulm edema Requesting Physician: Aj Basilio Chief Complaint: Shortness of breath and diarrhea History of Present Illness: Patient is an 86-year-old elderly female with a past medical history significant for ESRD on iHD via a R[facility] T[facility] at [facility] on a MWF basis. Pt's last HD session was last Sat, she reports developing some diarrhea Sun l eading her to miss treatment Mon. She also then experienced greater shortness of breath including at rest and presented therefore to the ER today where CXR imaging showed evidence of pulm edema. BP was also accelerated and potassium level elevated. Pt denies CP. Pt denies abdominal pain. Pt does endorse some fatigue and weakness. Allergies codeine Allergy (Severe, Verified 10/31/21 23:06) Nausea/Vomiting Home Medications: Cholecalciferol (Vitamin D3) [Vitamin D 5,000 IU Cap*] 1 tab PO DAILY 11/02/21 Mirtazapine [Remeron*] 15 mg PO BEDTIME 11/02/21 Prasugrel HCl 10 mg PO DAILY 11/02/21 Sevelamer Carbonate [Renvela*] 800 mg PO TIDWM 11/02/21 calcitrioL [Rocaltrol] 2 tab PO DAILY 11/02/21 carvediloL [Coreg*] 12.5 mg PO BID 11/02/21 Apixaban [Eliquis *] 2.5 mg PO BID 11/08/21 Calcium Carbonate/Vitamin D3 [Oscal 500 + Vit D 200 Iu Tab*] 1 tab PO BIDWM tab 11/08/21 Docusate [Colace Cap*] 100 mg PO BID cap 11/08/21 Ensure High Protein 237 ml PO DAILY can 11/08/21 Epoetin [Retacrit] 10,000 unit SQ M,W,F vial 11/08/21 Heparin [Heparin 1,000 units/mL *] 4,000 unit IV EVERY HD PRN vial 11/08/21 Nifedipine Xl [Procardia XL*] 60 mg PO DAILY tab 11/17/21 Cyclobenzaprine [Flexeril*] 5 mg PO BIDP PRN tab 11/21/21 Epoetin [Retacrit] 10,000 unit SQ M,W,F vial 11/21/21 Heparin [Heparin 1,000 units/mL *] 4,000 unit IV EVERY HD PRN vial 11/21/21 Hydralazine HCl 25 mg PO TID #90 11/21/21 Hydrocodone 5/APAP 325 [[place] 5/325*] 1 tab PO Q8H PRN #15 tab 11/21/21 Losartan Potassium [Cozaar*] 50 mg PO BID 11/21/21 carvediloL [Coreg*] 12.5 mg PO BID tab 11/21/21 - Past Medical/Surgical History Diabetic: No -: Hypertension -: Hyperlipidemia -: History CVA -: Carotid arterial disease with prior stent -: CAD -: Hypothyroidism -: Chronic diastolic CHF -: Depression with anxiety -: Chronic pain -: ESRD on HD followed by Dr. Pablo -: Carotid stent -: Right partial hip replacement Psychosocial/ Personal History: Patient is a . She lives by herself. - Family History Father Medical History: Stroke Mother Medical History: Hypertension, Diabetes - Social History Smoking Status: Never smoker Alcohol use: No CD- Drugs: No Caffeine use: Yes Place of Residence: Home Review of Systems General: Weakness, Malaise Eyes: Unremarkable ENT: Unremarkable Respiratory: Shortness of Breath Cardiovascular: As per HPI Gastrointestinal: Diarrhea Genitourinary: Unremarkable Musculoskeletal: Other (Lt hip surgery for fracture after fall earlier this year) Integumentary: Unremarkable Neurological: Unremarkable Physical Examination Temp Pulse Resp BP Pulse Ox 97.6 F 90 26 H 187/95 H 03/28/22 08:51 03/28/22 11:34 03/28/22 11:34 03/28/22 11:34 General: Alert, In no apparent distress HEENT: Atraumatic, Normocephalic, EOMI Neck: Supple Respiratory: Normal air movement, Other (scattered rales, reduced BS at the abse) Cardiovascular: Regular rate/rhythm, Other (cardiac murmur, no significant peripheral edema or improved from prev) Gastrointestinal: Soft and benign, Non-distended Musculoskeletal: No contractures, No erythema Integumentary: No rashes Neurological: Normal speech, Normal tone, Normal affect Laboratory Data (last 24 hrs) 03/28/22 09:35: Sodium 132 L, Potassium 5.8 H*, BUN 83 H, Creatinine 7.25 H*, Glucose 120 H, Magnesium 2.2, Total Bilirubin 0.9, AST 84 H, ALT 84 H, Alkaline Phosphatase 135 H 03/28/22 08:43: PT 10.6, INR 0.96 03/28/22 08:43: WBC 6.20, Hgb 12.0, Hct 37.4, Plt Count 150 L Conclusions/Impression: 1. ESRD 2. Hyperkalemia 3. Hypertensive urgency 4. Acute pulm edema 5. Azotemia 6. 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 Will review need for additional dialysis tmrw. -Dialysis with low K bath -IV Hydralazine dose ordered while in the ER, f/u post HD BP. As an OP, pt's BP on treatments had been better, resume home meds and will adjust as indicated -Probable cardiogenic pulm edema in the setting of increased afterload, MR, other. F/u CXR to see if opacities reported are clearing with UF on dialysis -Troponin leak in the setting of renal failure, accelerated HTN, other -trend, pt did have echo study done this past summer Thank you for the referral, Santos Escalona MD, JHOAN
[2022-03-28 17:24] VITALS: BMI 15.0
[2022-03-28] MEDS: CALCIUM CARB 500MG/VIT D 200 IU TAB PO SCH (18:28)
[2022-03-28] MEDS: ASPIRIN 81 MG CHEWABLE TABLET PO SCH (18:28)
[2022-03-28] MEDS: ATORVASTATIN 40 MG TAB PO SCH (20:50)
[2022-03-28] MEDS: carvediloL 12.5 MG TAB PO SCH (20:50)
[2022-03-28] MEDS: DOCUSATE NA 100 MG CAP PO SCH (20:50)
[2022-03-28] MEDS: APIXABAN 2.5 MG TABLET PO SCH (20:50)
[2022-03-28] MEDS: MIRTAZAPINE 15 MG TAB PO SCH (20:51)
[2022-03-29 03:52] LABS: Absolute Lymphocytes (CBC) 0.5 K/uL (0.7-4.9); Hematocrit 30.5 % (36.0-45.0); Lymphocytes % 9.9 % (15.3-44.8); RBC Red Blood Cell Count 3.25 M/uL (3.86-4.86)
[2022-03-29 04:23] LABS: BUN Blood Urea Nitrogen 40 mg/dL (7-18); Bicarbonate 29 mmol/L (21-32); Glomerular Filtration Rate 10 ml/min (=/>90); Glucose Level 116 mg/dL (74-106); Potassium 4.2 mmol/L (3.5-5.1); Sodium Level 137 mmol/L (136-145)
[2022-03-29 04:28] LABS: NT PRO-BNP > 175000 pg/mL (<450)
--- NOTE | 2022-03-29 08:06 | EKG ---
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 RESULTS: Intervals: Rate: 91 TX: 168 QRSD: 110 QT: 382 QTc: 469 [place]: P: 63 TX: 168 QRS: -57 T: 122 INTERPRETIVE STATEMENTS: Sinus rhythm with premature supraventricular complexes Left axis deviation Septal infarct, age undetermined ST & T wave abnormality, consider lateral ischemia Abnormal ECG Compared to ECG 11/01/2021 09:25:53 Atrial premature complex(es) now present Left-axis deviation now present ST (T wave) deviation now present Possible ischemia now present Sinus arrhythmia no longer present Myocardial infarct finding still present Electronically Signed On 03-29-22 08:02:01 ETCHED CIRCUIT PROCESSOR by Donn Griffin
[2022-03-29] MEDS: ASPIRIN 81 MG CHEWABLE TABLET PO SCH (08:20)
[2022-03-29] MEDS: SEVELAMER CARBONATE 800 MG TABLET PO SCH ×3 (08:20→16:16)
[2022-03-29] MEDS: HYDRALAZINE HCL 25 MG TABLET PO SCH ×3 (08:20→21:37)
[2022-03-29] MEDS: NIFEDIPINE XL 60 MG TABLET PO SCH (08:20)
[2022-03-29] MEDS: DOCUSATE NA 100 MG CAP PO SCH ×2 (08:20→21:37)
[2022-03-29] MEDS: VITAMIN D 5,000 UNIT CAP PO SCH (08:20)
[2022-03-29] MEDS: APIXABAN 2.5 MG TABLET PO SCH ×2 (08:21→21:37)
[2022-03-29] MEDS: carvediloL 12.5 MG TAB PO SCH ×2 (08:21→21:37)
[2022-03-29] MEDS: CALCIUM CARB 500MG/VIT D 200 IU TAB PO SCH ×2 (08:21→16:16)
[2022-03-29] MEDS: ENSURE HIGH PROTEIN 237 ML CAN PO SCH (08:21)
[2022-03-29] MEDS: CALCITROL 0.25 MCG CAP PO SCH (08:21)
[2022-03-29] MEDS: PRASUGREL (EFFIENT) 10 MG TAB PO SCH (09:00)
[2022-03-29] MEDS ORDERED: NEPRO SHAKE 237 ML CAN PO SCH (21:00)
--- NOTE | 2022-03-29 21:10 | P.PN ---
Date of Service: 03/29/22 Vital Signs Temp Pulse Resp BP Pulse Ox 97.1 F 66 16 139/61 97 03/29/22 16:00 03/29/22 16:00 03/29/22 16:00 03/29/22 16:00 03/29/22 16:00 Medications Acetaminophen (Acetaminophen 325 Mg Tablet) 650 mg PO Q6H PRN PRN Reason: TEMP > 100' F Hydrocodone Bitart/Acetaminophen (Hydrocodone/Apap 5/325 Mg Tab) 1 tab PO Q6H PRN PRN Reason: Pain scale 5-7 (Moderate) Apixaban (Apixaban 2.5 Mg Tablet) 2.5 mg PO BID [facility] Last Admin: 03/29/22 08:21 Dose: 2.5 mg Aspirin (Aspirin 81 Mg Chewable Tablet) 81 mg PO DAILY [facility] Last Admin: 03/29/22 08:20 Dose: 81 mg Atorvastatin Calcium (Atorvastatin 40 Mg Tab) 40 mg PO BEDTIME [facility] Last Admin: 03/28/22 20:50 Dose: 40 mg Calcitriol (Calcitrol 0.25 Mcg Cap) 0.5 mcg PO DAILY [facility] Last Admin: 03/29/22 08:21 Dose: 0.5 mcg Calcium Carbonate (Calcium Carb 500mg/Vit D 200 Iu Tab) 1 tab PO BIDWM [facility] Last Admin: 03/29/22 16:16 Dose: 1 tab Carvedilol (Carvedilol 12.5 Mg Tab) 12.5 mg PO BID [facility] Last Admin: 03/29/22 08:21 Dose: 12.5 mg Cholecalciferol (Vitamin D 5,000 Unit Cap) 5,000 unit PO DAILY [facility] Last Admin: 03/29/22 08:20 Dose: 5,000 unit Cyclobenzaprine HCl (Cyclobenzaprine 10 Mg Tab) 5 mg PO BIDP PRN PRN Reason: MUSCLE SPASMS Docusate Sodium (Docusate Na 100 Mg Cap) 100 mg PO BID [facility] Last Admin: 03/29/22 08:20 Dose: 100 mg Heparin Sodium (Porcine) (Heparin 1,000 Unit/Ml Vial) 4,000 unit IV EVERY HD PRN PRN Reason: DIALYSIS CATHETER CARE Last Admin: 03/29/22 14:32 Dose: 4,000 unit Heparin Sodium (Porcine) (Heparin 1,000 Unit/Ml Vial) 2,000 unit IV EVERY HD PRN PRN Reason: Prevent Lines Clotting Last Admin: 03/29/22 11:27 Dose: 2,000 unit Hydralazine HCl (Hydralazine Hcl 25 Mg Tablet) 25 mg PO TID [facility] Last Admin: 03/29/22 14:00 Dose: Not Given Hydralazine HCl (Hydralazine Hcl 20 Mg/Ml Vial) 5 mg IV Q4HP PRN PRN Reason: SBP > 170 mmHg Labetalol HCl (Labetalol 20 Mg/4ml Syringe) 10 mg IV Q6H PRN PRN Reason: Titrate to SBP (MUST DEFINE) Mirtazapine (Mirtazapine 15 Mg Tab) 15 mg PO BEDTIME [facility] Last Admin: 03/28/22 20:51 Dose: 15 mg Nifedipine (Nifedipine Xl 60 Mg Tablet) 60 mg PO DAILY [facility] Last Admin: 03/29/22 08:20 Dose: 60 mg Nutritional Formula (Ensure High Protein 237 Ml Can) 237 ml PO DAILY [facility] Last Admin: 03/29/22 08:21 Dose: 237 ml Ondansetron HCl (Ondansetron 4 Mg/2 Ml Vial) 4 mg IV Q6HP PRN PRN Reason: NAUSEA / VOMITING Prasugrel (Prasugrel (Effient) 10 Mg Tab) 10 mg PO DAILY [facility] Last Admin: 03/29/22 09:00 Dose: Not Given Sevelamer Carbonate (Sevelamer Carbonate 800 Mg Tablet) 800 mg PO TIDWM [facility] Last Admin: 03/29/22 16:16 Dose: 800 mg Sodium Chloride (Flush Normal Saline 10 Ml) 10 ml IV BID [facility] Last Admin: 03/29/22 08:21 Dose: 10 ml Assessment/ Plan: Nephrology No dyspnea No chest pain Feeling better No acute events overnight Vitals, medications, blood work and imaging reviewed in the chart. NAD. NCAT. MMM. Neck supple. Normal respiratory effort. RRR. Abd ND. No C/C. LE Edema trace. No rash. AAO. Normal speech. ESRD on HD Hyperkalemia -Acute HD ordered -Seen and examined on HD HTN with CKD/ CHF -Continue Coreg Diastolic CHF, A/C -Low sodium diet -HD with UF Anemia in CKD -Retacrit prn CKD MBD -Continue Calcitriol -Continue Renvela
[2022-03-29] MEDS: ATORVASTATIN 40 MG TAB PO SCH (21:36)
[2022-03-29] MEDS: MIRTAZAPINE 15 MG TAB PO SCH (21:37)
--- NOTE | 2022-03-30 01:01 | P.PN ---
Date of Service: 03/29/22 Subjective Patient is clinically doing well with no new complaints. Will finish dialysis today. Diarrhea is improved. Anticipate discharge in the morning. Physical Examination - Physical Exam General: Alert, In no apparent distress, Oriented x3, Cooperative Respiratory: Diminished but otherwise clear Cardiovascular: No edema, Normal S1 S2 Gastrointestinal: Normal bowel sounds, Non-distended, No tenderness Musculoskeletal: No clubbing, No swelling, No contractures, No tenderness Neurological: Normal speech, Normal tone, Normal affect Assessment and Plan - Assessment and Plan --Volume overload/ESRD. Patient scheduled for dialysis today. Further manageme nt per sod cutter. --Acute on chronic diastolic CHF exacerbation. Continue dialysis per sod cutter recommendation. Daily weight and strict I/O. --Diarrhea. Stool studies pending to rule out any infectious process. Continue supportive care. --Hyperlipidemia. Continue statin. --Depression\anxiety disorder. Continue home medication. --History of CVA\CAD with stents. Continue Eliquis, aspirin and Effient. --Hypothyroidism. Continue home medication. --Hyperkalemia. Improved --Elevated troponin. Renal clearance --Hypertension. Continue home medications and labetalol as needed. --DVT prophylaxis with Eliquis.
[2022-03-30] MEDS ORDERED: MELATONIN 5 MG TABLET PO PRN (02:18)
[2022-03-30 04:46] VITALS: O2SAT 93
[2022-03-30 06:25] LABS: Absolute Lymphocytes (CBC) 0.5 K/uL (0.7-4.9); Hematocrit 30.4 % (36.0-45.0); Lymphocytes % 11.7 % (15.3-44.8); MCV 94.1 fL (80-100); MPV 9.1 fL (7.6-11.3); RBC Red Blood Cell Count 3.23 M/uL (3.86-4.86)
[2022-03-30 06:41] LABS: Albumin 2.3 g/dL (3.4-5.0); Bilirubin Total 0.5 mg/dL (0.2-1.0); Potassium 3.9 mmol/L (3.5-5.1); Protein, Total 5.2 g/dL (6.4-8.2)
[2022-03-30] MEDS: APIXABAN 2.5 MG TABLET PO SCH (08:20)
[2022-03-30] MEDS: PRASUGREL (EFFIENT) 10 MG TAB PO SCH (08:20)
[2022-03-30] MEDS: SEVELAMER CARBONATE 800 MG TABLET PO SCH (08:20)
[2022-03-30] MEDS: CALCIUM CARB 500MG/VIT D 200 IU TAB PO SCH (08:20)
[2022-03-30] MEDS: DOCUSATE NA 100 MG CAP PO SCH (08:20)
[2022-03-30] MEDS: VITAMIN D 5,000 UNIT CAP PO SCH (08:20)
[2022-03-30] MEDS: CALCITROL 0.25 MCG CAP PO SCH (08:20)
[2022-03-30] MEDS: HYDRALAZINE HCL 25 MG TABLET PO SCH (08:21)
[2022-03-30] MEDS: NIFEDIPINE XL 60 MG TABLET PO SCH (08:22)
[2022-03-30] MEDS: ASPIRIN 81 MG CHEWABLE TABLET PO SCH ×2 (08:22→08:27)
[2022-03-30] MEDS: carvediloL 12.5 MG TAB PO SCH (08:22)
[2022-03-30] MEDS: ENSURE HIGH PROTEIN 237 ML CAN PO SCH (08:22)
[2022-03-30 08:40] VITALS: TEMP 96.8
[2022-03-30] MEDS ORDERED: POTASSIUM CL SA 10 MEQ TAB PO ONE (09:00)
--- NOTE | 2022-03-30 09:19 | P.PN ---
Nephrology note: (S) Pt reports doing better overall, denies dyspnea, dialyzed Wed or Thurs (O) Vitals reviewed in the EMR General: Alert, In no apparent distress HEENT: Atraumatic, Normocephalic, EOMI Neck: Supple Respiratory: Normal air movement, Other (scattered rales, reduced BS at the abse) Cardiovascular: Regular rate/rhythm, Other (cardiac murmur, no significant peripheral edema or improved from prev) Gastrointestinal: Soft and benign, Non-distended Musculoskeletal: No contractures, No erythema Integumentary: No rashes Neurological: Normal speech, Normal tone, Normal affect Laboratory Data (last 24 hrs) Reviewed in the EMR Conclusions/Impression: 1. ESRD 2. Hyperkalemia, resolved 3. Hypertensive urgency, resolved 4. Acute pulm edema, resolved 5. Azotemia 6. 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
[2022-03-30 12:14] VITALS: BP 147/67
== END 2022-03-30 12:30 | disposition home or self-care (01) | DRG 291 ==
LOC: ER 07:56 → ERHOLD 10:25 → 2ND 12:16
PROVIDERS: ADMIT Nurse Practitioner Family; ATTEND Hospitalist
PROC: 5A1D70Z Performance of Urinary Filtration, Intermittent, Less than 6 Hours Per Day (ICD-10-PCS; principal; 2022-03-28)
DX: I13.2 Hypertensive heart and chronic kidney disease with heart failure and with stage 5 chronic kidney disease, or end stage renal disease (principal); I50.33 Acute on chronic diastolic (congestive) heart failure; N18.6 End stage renal disease; E87.5 Hyperkalemia; E78.5 Hyperlipidemia, unspecified; I16.0 Hypertensive urgency; G89.29 Other chronic pain; D63.1 Anemia in chronic kidney disease; F41.9 Anxiety disorder, unspecified; F32.A Depression, unspecified; E03.9 Hypothyroidism, unspecified; I25.10 Atherosclerotic heart disease of native coronary artery without angina pectoris; R19.7 Diarrhea, unspecified; R79.89 Other specified abnormal findings of blood chemistry; Z88.5 Allergy status to narcotic agent; Z60.2 Problems related to living alone; Z99.2 Dependence on renal dialysis; Z95.5 Presence of coronary angioplasty implant and graft; Z86.73 Personal history of transient ischemic attack (TIA), and cerebral infarction without residual deficits; Z79.82 Long term (current) use of aspirin; Z79.01 Long term (current) use of anticoagulants; Z90.49 Acquired absence of other specified parts of digestive tract; Z91.15 Patient's noncompliance with renal dialysis; Z79.890 Hormone replacement therapy; Z79.899 Other long term (current) drug therapy; Z96.641 Presence of right artificial hip joint; Z90.710 Acquired absence of both cervix and uterus; Z20.822 Contact with and (suspected) exposure to COVID-19
CPT/HCPCS: 0240U; 36415; 71045; 80048; 80053; 80076; 83735; 83880; 84100; 84484; 85025; 85610; 90935; 93005; 94640; 97161; 99285; J1644; J1940; J7613; J7644

== ENCOUNTER 2022-06-15 02:15 | Emergency (ER) | payer OTHER ==
--- OUTSIDE RECORDS SUMMARY | 2022-06-15 02:21 | XMS REPORT | Continuity of Care Document ---
:1935 Author Organization [facility] t Address [address] [facility] [place] [address] Care Team Providers Name Role Phone ROXY JACKSON Primary Care Physician Unavailable PARKER VITALE Attending Clinician Unavailable ROXY JACKSON Attending Clinician Unavailable YUE HUNG Attending Clinician Unavailable Stanley Sanz MD Attending Clinician YESIKA DYER Attending Clinician Unavailable NICOLE RUBALCAVA Attending Clinician Unavailable NICOLE RUBALCAVA Admitting Clinician Unavailable Payers Payer Name Policy Type Policy Number Effective Date Expiration Date S mihir [facility] 53 [id number] [facility] ADVANTAGE - [facility] MEDICARE PART A [id number] 2000 \T\ B 00:00:00 MEDICARE-PART B 5 [id number] 2018 00:00:00 Problems Condition Condition Condition Status Onset Resolution Last Treating Co mments Source Name Details Category Date Date Treatment Clinician Date HTN HTN Disease Active [facility]hypert[facility] (hypertens 3-04 Klaudia kes ion) ion) 00:00: Medical 00 [place] HLD HLD Disease Active [facility] (hyperlipi (hyperlipi 3-04 Klaudia kes demia) demia) 00:00: Medical [address] [place] [address] CAD CAD Disease Active [facility] (coronary (coronary 3-04 [facility] artery artery 00:00: Medical disease) disease) 00 [place] TIA TIA Disease Active [facility] (transient (transient 3-03 Klaudia kes ischemic ischemic 00:00: Medica l attack) attack) 00 [place] Hip Hip Disease Active 2015-04 [facility] fracture fracture 0-10 ity of 00:00: [place] 00 [facility] Femur Femur Disease Active 2015-04 [facility] fracture, fracture, 0-08 ity of right right 00:00: [place] 00 Medical Branch [id number] Right Problem Active [facility] sciatic [facility] nerve pain - [facility] [id number] Closed Problem Active Common displaced Spirit intertroch - [facility] anteric St fracture 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 [facility] [id number] Thoracogen Problem Active Com mon ic Spirit scoliosis - [facility] of thoracic [facility] [id number] Pain of Problem Active Comm on right hip Spirit joint pain - [facility] [id number] Scoliosis Problem Active Com mon of lumbar Spirit [facility] Med[facility] l of spine Center [...] 3-03 [facility] adverse 00:00: Medical reaction 00 [place] s CODEINE DRUG Active Hallucinates 2015-04 Uni vers INGREDI 0-08 ity of 00:00: [place] 00 Medical Branch Codeine Propensi Active Hallucinatio 2015-04 U nivers ty to ns 0-08 ity of adverse 00:00: [place] reaction 00 Medical s Branch codeine codeine Active Unknown [facility] Social History Social Habit Start Date Stop Date Quantity Comments [facility] Comment Medical C enter History of Tobacco [facility] - Use [facility] History [facility] 2018-06-16 2018-06-[address] [facility] Alcohol Frequency 00:00:00 00:00:00 Medical Center History [facility] 2018-06-16 2018-06-[address] [facility] Alcohol Std Drinks 00:00:00 00:00:00 Medica l Center History [facility] 2018-06-16 2018-06-[address] [facility] Alcohol Binge 00:00:00 00:00:[address] Tobacco use and 2018-06-15 2018-06-[address] Klaudia kes exposure 00:00:00 00:00:00 Medical Center Alcohol intake 2018-06-15 2018-06-15 [facility] alcohol Medical Center (finding) Sex Assigned At [address] Klaudia kes 00:00:00 00:00:00 Medical Center Smoking Status Start Date Stop Date Source Never Smoker [facility] Medications Ordered Filled Start Stop Current Ordering Indication Dosage Frequency Signature Comments Components Source Medication Medication Date Date Medication? Clinician (SIG) Name Name TAKE 1 2-0 No TABLET BY 8-22 MOUTH FOUR 00:00: [...] Dose 2022-0 No Unknown 8- 00:00: 00 furosemide 2022-0 No 1mg 40 [...] No Unknown 6-03 00:00: 00 Remeron 15 2-0 No 1mg mg tablet 6-03 00:00: 00 [...] 3-21 mg tablet 00:00: 00 Remeron 15 2-0 No 1mg mg tablet 3-21 00:00: 00 [...] 2021-0 No Unknown 7-05 00:00: 00 Dose 1-0 No Unknown 7-05 00:00: 00 hydralazine 2021-0 No 5mg 25 mg 7-05 tablet 00:00: 00 losartan 1-0 No 1mg 100 mg 7-05 tablet 00:00: 00 Dose 2021-0 No Unknown 7-05 00:00: 00 Dose 2021-0 No Unknown 7-05 00:00: 00 Dose 1-0 No Unknown 7-05 00:00: 00 cyanocobala 1-0 [...] Levo-T 25 2021-0 No 1mcg mcg tablet 528 00:00: 00 cyanocobala 2021-0 No 1mcg/mL min (vit 5-28 B-12) 1,000 00:00: mcg/mL 00 injection solution amlodipine 2020-0 No 1mg 10 mg 5-28 tablet 00:00: 00 Levo-T 25 2020-0 No 1mcg mcg tablet - 00:00: 00 cyanocobala 1-0 No 1mcg/mL min (vit 09-09 B-12) 1,000 00:00: mcg/mL 00 injection solution atorvastati 1-0 No 1mg n 20 mg 4-05 tablet 00:00: 00 metoprolol 2021-0 No 1mg tartrate 50 4-05 mg tablet 00:00: 00 Levo-T 25 1-0 No 1mcg mcg tablet 4-05 00:00: 00 gabapentin 2021-0 No 1mg 300 mg 4-05 capsule 00:00: 00 cyanocobala 1-0 No 1mcg/mL min (vit 07-18 B-12) 1,000 00:00: mcg/mL 00 injection solution atorvastati 1-0 No 1mg n 20 mg 4-05 tablet 00:00: 00 metoprolol 2021-0 No 1mg tartrate 50 4-05 mg tablet 00:00: 00 Levo-T 25 1-0 No 1mcg mcg tablet 4-05 00:00: 00 gabapentin 2021-0 No 1mg 300 mg 4-05 capsule 00:00: 00 atorvastati 1-0 No 1mg n 20 mg 4-05 tablet 00:00: 00 metoprolol 2021-0 No 1mg tartrate 50 4-05 mg tablet 00:00: 00 Levo-T 25 1-0 No 1mcg mcg tablet 4-05 00:00: 00 gabapentin 2021-0 No 1mg 300 mg 4-05 capsule 00:00: 00 cyanocobala 2021-0 No 1mcg/mL min (vit 07-18 B-12) 1,000 00:00: mcg/mL 00 injection solution cyanocobala 1-0 No 1mcg/mL min (vit 07-18 B-12) 1,000 [...] as needed Spirit 00:00: - [facility] Tylenol 8 Tylenol 8 2018-0 No 2{table TID Tylenol 8 Hour 650 MG Hour 650 MG 11-06 ts_as_n Hour 650 00:00: eeded} MG 00 Tylenol 8 Tylenol 8 2018-0 No 2{table TID Tylenol 8 Hour 650 MG Hour 650 MG 7-25 ts_as_n Hour 650 00:00: eeded} MG 00 metoprolol Yes 50mg QD Take [address] (LOPRESSOR) 3-05 by mouth Luke s 25 MG 20:29: daily. Medical tablet 27 [place] prasugr Yes 10mg QD Take [address] (EFFIENT) 3-05 by mouth [facility] 10 mg Tab 20:29: daily. Medica l tablet 27 [place] levothyroxi Yes 25ug Take [address] ne 3-05 mcg by Lukes (SYNTHROID, 20:29: mouth Medic al LEVOTHROID) 27 Every Center 25 MCG morning on tablet an empty stomach. losartan Yes 100mg QD Take [address] (COZAAR) 3-05 mg by [facility]ukes 100 MG 20:29: mouth Medical tablet 27 daily. [place] metoprolol Yes 50mg QD Take [address] (LOPRESSOR) 3-05 by mouth Luke s 25 MG 20:29: daily. Medical tablet 27 [employer] Yes 10mg QD Take [address] (EFFIENT) 3-05 by mouth [facility]ukes 10 mg Tab 20:29: daily. Medica l tablet 27 [place] levothyrox Yes 25ug Take [address] ne 3-05 mcg by Lukes (SYNTHROID, 20:29: mouth Medic al LEVOTHROID) 27 Every Center 25 MCG morning on tablet an empty stomach. losartan Yes 100mg QD Take [address] (COZAAR) 3-05 mg by [facility] 100 MG 20:29: mouth Medical tablet 27 daily. [place] metoprolol 0 Yes 50mg QD Take [address] (LOPRESSOR) 3-05 by mouth Luke [facility] 25 MG 20:29: daily. Medical tablet 27 [place] prasugr Yes 10mg QD Take [address] (EFFIENT) 3-05 by mouth [facility]ukes 10 mg Tab 20:29: daily. Medica l tablet 27 [place] levothyrox Yes 25ug Take [address] ne 3-05 mcg by Lukes (SYNTHROID, 20:29: mouth Medic al LEVOTHROID) 27 Every Center 25 MCG morning on tablet an empty stomach. losartan 2019-0 Yes 100mg QD Take [address] (COZAAR) 3-05 mg by [facility]ukes 100 MG 20:29: mouth Medical tablet 27 daily. [place] metoprolol 0 Yes 50mg QD Take [address] (LOPRESSOR) 3-05 by mouth Luke s 25 MG 20:29: daily. Medical tablet 27 [place] prasugr Yes 10mg QD Take [address] (EFFIENT) 3-05 by mouth [facility]ukes 10 mg Tab 20:29: daily. Medica l tablet 27 [place] levothyroxi Yes 25ug Take [address] ne 3-05 mcg by Lukes (SYNTHROID, 20:29: mouth Medic al LEVOTHROID) 27 Every Center 25 MCG morning on tablet an empty stomach. losartan Yes 100mg QD Take [address] (COZAAR) 3-05 mg by [facility]ukes 100 MG 20:29: mouth Medical tablet 27 daily. [place] metoprolol Yes 50mg QD Take [address] (LOPRESSOR) 3-05 by mouth Luke s 25 MG 20:29: daily. Medical tablet 27 [place] prasugr Yes 10mg QD Take [address] (EFFIENT) 3-05 by mouth [facility]ukes 10 mg Tab 20:29: daily. Medica l tablet 27 [place] levothyroxi Yes 25ug Take [address] ne 3-05 mcg by Lukes (SYNTHROID, 20:29: mouth Medic al LEVOTHROID) 27 Every Center 25 MCG morning on tablet an empty stomach. losartan Yes 100mg QD Take [address] (COZAAR) 3-05 mg by [facility]ukes 100 MG 20:29: mouth Medical tablet 27 daily. [place] metoprolol 0 Yes 50mg QD Take [address] (LOPRESSOR) 3-05 by mouth Luke s 25 MG 20:29: daily. Medical tablet 27 [place] prasugr Yes 10mg QD Take [address] (EFFIENT) 3-05 by mouth [facility]ukes 10 mg Tab 20:29: daily. Medica l tablet 27 [place] levothyroxi Yes 25ug Take [address] [...] 25 MG 20:29: daily. Medical tablet 27 [place] prasugr 20190 Yes 10mg QD Take [address] (EFFIENT) 3-05 by mouth [facility]ukes 10 mg Tab 20:29: daily. Medica l tablet 27 [place] levothyroxi 0 Yes 25ug Take [address] ne 3-05 mcg by Lukes (SYNTHROID, 20:29: mouth Medic al LEVOTHROID) 27 Every Center 25 MCG morning on tablet an empty stomach. losartan 2018- Yes 100mg QD Take [address] (COZAAR) 3-05 mg by Lukes 100 MG 20:29: mouth Medical tablet 27 daily. [place] metoprolol Yes 50mg QD Take [address] (LOPRESSOR) 3-05 by mouth Luke [facility] 25 MG 20:29: daily. Medical tablet 27 [place] prasugr 0 Yes 10mg QD Take [address] (EFFIENT) 3-05 by mouth [facility]ukes 10 mg Tab 20:29: daily. Medica l tablet 27 [place] levothyroxi Yes 25ug Take [address] ne 3-05 mcg by Lukes (SYNTHROID, 20:29: mouth Medic al LEVOTHROID) 27 Every Center 25 MCG morning on tablet an empty stomach. losartan 2018-0 Yes 100mg QD Take [address] (COZAAR) 3-05 mg by Lukes 100 MG 20:29: mouth Medical tablet 27 daily. [place] metoprolol 0 Yes 50mg QD Take [address] (LOPRESSOR) 3-05 by mouth Luke s 25 MG 20:29: daily. Medical tablet 27 [place] prasugr 20190 Yes 10mg QD Take [address] (EFFIENT) 3-05 by mouth [facility]ukes 10 mg Tab 20:29: daily. Medica l tablet 27 [place] levothyroxi 0 Yes 25ug Take 25 CHI [...] 25 MG 20:29: daily. Medical tablet 27 [place] prasugrel 2019-0 Yes 10mg QD Take [address] (EFFIENT) 3-05 by mouth [facility]ukes 10 mg Tab 20:29: daily. Medica l tablet 27 [place] levothyroxi 20190 Yes 25ug Take [address] ne 3-05 mcg by Lukes (SYNTHROID, 20:29: mouth Medic al LEVOTHROID) 27 Every Center 25 MCG morning on tablet an empty stomach. losartan 2018-0 Yes 100mg QD Take [address] (COZAAR) 3-05 mg by Lukes 100 MG 20:29: mouth Medical tablet 27 daily. [place] metoprolol 0 Yes 50mg QD Take [address] (LOPRESSOR) 3-05 by mouth Luke s 25 MG 20:29: daily. Medical tablet 27 [place] prasugr 0 Yes 10mg QD Take [address] (EFFIENT) 3-05 by mouth [facility]ukes 10 mg Tab 20:29: daily. Medica l tablet 27 [place] levothyroxi 0 Yes 25ug Take [address] ne 3-05 mcg by Lukes (SYNTHROID, 20:29: mouth Medic al LEVOTHROID) 27 Every Center 25 MCG morning on tablet an empty stomach. losartan 2019-0 Yes 100mg QD Take [address] (COZAAR) 3-05 mg by Lukes 100 MG 20:29: mouth Medical tablet 27 daily. [place] metoprolol 2019-0 Yes 50mg QD Take [address] (LOPRESSOR) 3-05 by mouth Luke s 25 MG 20:29: daily. Medical tablet 27 [place] prasugrel 2019-0 Yes 10mg QD Take [address] (EFFIENT) 3-05 by mouth [facility]ukes 10 mg Tab 20:29: daily. Medica l tablet 27 [place] levothyroxi 0 Yes 25ug Take [address] ne 3-05 mcg by Lukes (SYNTHROID, 20:29: mouth Medic al LEVOTHROID) 27 Every Center 25 MCG morning on tablet an empty stomach. losartan 2018- Yes 100mg QD Take [address] (COZAAR) 3-05 mg by Lukes 100 MG 20:29: mouth Medical tablet 27 daily. Center metoprolol 0 Yes 50mg QD Take [address] (LOPRESSOR) 3-05 by mouth Luke s 25 MG 20:29: daily. Medical tablet 27 [place] prasugr 0 Yes 10mg QD Take [address] (EFFIENT) 3-05 by mouth [facility]ukes 10 mg Tab 20:29: daily. Medica l tablet 27 [place] levothyroxi Yes 25ug Take [address] ne 3-05 mcg by Lukes (SYNTHROID, 20:29: mouth Medic al LEVOTHROID) 27 Every Center 25 MCG morning on tablet an empty stomach. losartan Yes 100mg QD Take [address] (COZAAR) 3-05 mg by [facility]ukes 100 MG 20:29: mouth Medical tablet 27 daily. [place] metoprolol Yes 50mg QD Take [address] (LOPRESSOR) 3-05 by mouth Luke s 25 MG 20:29: daily. Medical tablet 27 [place] prasugr Yes 10mg QD Take [address] (EFFIENT) 3-05 by mouth [facility]ukes 10 mg Tab 20:29: daily. Medica l tablet 27 [place] levothyroxi Yes 25ug Take [address] ne 3-05 mcg by Lukes (SYNTHROID, 20:29: mouth Medic al LEVOTHROID) 27 Every Center 25 MCG morning on tablet an empty stomach. losartan Yes 100mg QD Take [address] (COZAAR) 3-05 mg by [facility]ukes 100 MG 20:29: mouth Medical tablet 27 daily. [place] metoprolol 0 Yes 50mg QD Take [address] (LOPRESSOR) 3-05 by mouth Luke [facility] 25 MG 20:29: daily. Medical tablet 27 [place] prasugr 0 Yes 10mg QD Take [address] (EFFIENT) 3-05 by mouth [facility]ukes 10 mg Tab 20:29: daily. Medica l tablet 27 [place] levothyroxi 0 Yes 25ug Take [address] ne 3-05 mcg by Lukes (SYNTHROID, 20:29: mouth Medic al LEVOTHROID) 27 Every Center 25 MCG morning on tablet an empty stomach. losartan 2018-0 Yes 100mg QD Take [address] (COZAAR) 3-05 mg by Lukes 100 MG 20:29: mouth Medical tablet 27 daily. Center metoprolol 0 Yes 50mg QD Take [address] (LOPRESSOR) 3-05 by mouth Luke s 25 MG 20:29: daily. Medical tablet 27 [place] prasugr 0 Yes 10mg QD Take [address] (EFFIENT) 3-05 by mouth [facility]ukes 10 mg Tab 20:29: daily. Medica l tablet 27 [place] levothyroxi Yes 25ug Take [address] ne 3-05 mcg by Lukes (SYNTHROID, 20:29: mouth Medic al LEVOTHROID) 27 Every Center 25 MCG morning on tablet an empty stomach. losartan Yes 100mg QD Take [address] (COZAAR) 3-05 mg by [facility]ukes 100 MG 20:29: mouth Medical tablet 27 daily. [place] metoprolol Yes 50mg QD Take [address] (LOPRESSOR) 3-05 by mouth Luke s 25 MG 20:29: daily. Medical tablet 27 [place] prasugr Yes 10mg QD Take [address] (EFFIENT) 3-05 by mouth [facility] 10 mg Tab 20:29: daily. Medica l tablet 27 [place] levothyroxi Yes 25ug Take [address] ne 3-05 mcg by Lukes (SYNTHROID, 20:29: mouth Medic al LEVOTHROID) 27 Every Center 25 MCG morning on tablet an empty stomach. losartan Yes 100mg QD Take [address] (COZAAR) 3-05 mg by [facility]ukes 100 MG 20:29: mouth Medical tablet 27 daily. [place] metoprolol Yes 50mg QD Take [address] (LOPRESSOR) 3-05 by mouth Luke s 25 MG 20:29: daily. Medical tablet 27 [place] prasugrel 0 Yes 10mg QD Take [address] (EFFIENT) 3-05 by mouth [facility] 10 mg Tab 20:29: daily. Medica l tablet 27 [place] levothyroxi Yes 25ug Take [address] [...] SATURDAY Medical Branch Alendronate Alendronate Yes Tucker garcia Common Sodium Sodium Babak defined Spirit - [facility] Metoprolol Metoprolol Yes Tucker not C ommon Succinate Succinate Hilliard defined [facility] Atorvastati Atorvastati Yes Tucker not Common n Calcium n Calcium Hilliard defined [facility] Losartan Losartan Yes Tucker not Commo n Potassium Potassium Hilliard defined [facility] Prasugrel Prasugrel Yes Tucker not Com mon HCl HCl Hilliard defined [facility] Aspirin Aspirin Yes Tucker not Common Hilliard defined [facility] Levothyroxi Levothyroxi Yes Tucker not Common ne Sodium ne Sodium Hilliard defined [facility] Levothyroxi Levothyroxi No Levothyrox ne Sodium ne [...] COVID-19 2021-02-08 Completed Vaccine 00:00:00 Moderna COVID-19 2021-02-08 Completed Vaccine 00:00:00 Moderna COVID-19 2021-02-08 Completed Vaccine 00:00:00 Moderna COVID-19 2020-05-06 Completed Vaccine 00:00:00 Moderna COVID-19 2020-05-06 Completed Vaccine 00:00:00 Moderna COVID-19 2020-05-06 Completed Vaccine 00:00:00 Influenza, seasonal, 2020-01-18 Completed inj 00:00:00 Influenza, seasonal, 2020-01-18 Completed inj 00:00:00 Influenza, seasonal, 2020-01-18 Completed inj 00:00:00 Moderna COVID-19 Unknown Completed Vaccine Moderna COVID-19 Unknown Completed Vaccine Moderna COVID-19 Unknown Completed Vaccine Vital Signs Vital Name Observation Time Observation Value Comments Source height 2021-12-14 08:00:00 67 [in_i] [facility] weight 2021-12-14 08:00:00 102 [lb_av] [facility] temperature 2021-12-14 08:00:00 97.2 [degF] [facility] bmi 2021-12-14 08:00:00 15.97 kg/m2 [facility] blood pressure 2021-12-14 08:00:00 110 mm[Hg] [facility] Spirit - systolic [facility] blood pressure 2021-12-14 08:00:00 68 mm[Hg] [facility] - diastolic [facility] BP Systolic 2022-01-16 14:05:00 150 mm[Hg] BP [...] [facility] Test 00:00:00 (1 of 1 - [facility] [id number]_Bxbtbox PCV13) [code = PNEUMOCOCCAL 65+ YRS (1 of 1 - EYIQ42_Hkqgaje PCV13)] Future Scheduled 2000-10-14 PNEUMOCOCCAL 65+ Y[facility] Test 00:00:00 (1 of 1 [facility] SYWI46_Tkynvil PCV13) [code = PNEUMOCOCCAL 65+ YRS (1 of 1 - PQQI19_Qpjoxqq PCV13)] Future Scheduled 2000-10-14 PNEUMOCOCCAL 65+ Y[facility] Test 00:00:00 ([address] [place] [address] FPAQ56_Aytdnlw PCV13) [code = PNEUMOCOCCAL 65+ YRS (1 of 1 - CGHQ23_Ofsichv PCV13)] Future Scheduled 2000-10-14 PNEUMOCOCCAL 65+ Y[facility] Test 00:00:00 ([address] [place] [address] Center HXFJ52_Ckiokfi PCV13) [code = PNEUMOCOCCAL 65+ YRS (1 of 1 - BCQF17_Rmlkcjj PCV13)] Future Scheduled 2000-10-14 PNEUMOCOCCAL 65+ Y[facility] Test 00:00:00 ([address] [place] [address] Center EIWE10_Uzqrsqd PCV13) [code = PNEUMOCOCCAL 65+ YRS (1 of 1 - ATKZ56_Poydtjb PCV13)] Future Scheduled 2000-10-14 PNEUMOCOCCAL 65+ Y[facility] Test 00:00:00 ([address] [place] [address] YNLU55_Hheqwgl PCV13) [code = PNEUMOCOCCAL 65+ YRS (1 of 1 - LTRQ13_Dwosmze PCV13)] Future Scheduled 2000-10-14 PNEUMOCOCCAL 65+ Y[facility] Test 00:00:00 ([address] [place] [address] COWV55_Ekmtjjw PCV13) [code = PNEUMOCOCCAL 65+ YRS (1 of 1 - QLZR82_Zyppybp PCV13)] Future Scheduled 2000-10-14 PNEUMOCOCCAL 65+ Y[facility] Test 00:00:00 ([address] [place] [address] RIML36_Bzybvgj PCV13) [code = PNEUMOCOCCAL 65+ YRS (1 of 1 - SJOV63_Bdyomwe PCV13)] Future Scheduled 2000-10-14 PNEUMOCOCCAL 65+ [facility] Test 00:00:00 ([address] [place] [address] QQSM20_Mtcfcbd PCV13) [code = PNEUMOCOCCAL 65+ YRS (1 of 1 - BCAI39_Vtvxfbf PCV13)] Future Scheduled 1985-10-14 SHINGLES VACCINES (1 [...] Goal Plan of Care Note [code = 83887-9] Goal Plan of Care Note [code = 96318-5] Goal Plan of Care Note [code = 61975-0] Goal Plan of Care Note [code = 14385-0] Goal Plan of Care Note [code = 23677-3] Goal Plan of Care Note [code = 41918-2] Goal Plan of Care Note [code = 43693-1] Goal Plan of Care Note [code = 16309-5] Goal Plan of Care Note [code = 83625-0] Goal Plan of Care Note [code = 69438-8] Goal Plan of Care Note [code = 90960-0] Goal Plan of Care Note [code = 24337-1] Goal Plan of Care Note [code = 43412-0] Goal Plan of Care Note [code = 27631-3] Goal Plan of Care Note [code = 01866-1] Goal Plan of Care Note [code = 75813-8] Goal Plan of Care Note [code = 50663-8] Goal Plan of Care Note [code = 71039-7] Goal Plan of Care Note [code = 23854-5] Goal Plan of Care Note [code = 20918-9] Goal Plan of Care Note [code = 71285-9] Goal Plan of Care Note [code = 27573-6] Goal Plan of Care Note [code = 26458-5] Goal Plan of Care Note [code = 14660-5] Goal Plan of Care Note [code = 63448-6] Goal Plan of Care Note [code = 71985-0] Goal Plan of Care Note [code = 26039-9] Goal Plan of Care Note [code = 73043-5] Goal Plan of Care Note [code = 67064-1] Goal Plan of Care Note [code = 67270-7] Goal Plan of Care Note [code = 00514-7] Goal Plan of Care Note [code = 97915-8] Goal Plan of Care Note [code = 21302-2] Goal Plan of Care Note [code = 80707-4] Goal Plan of Care Note [code = 63768-3] Goal Plan of Care Note [code = 91522-2] Goal Plan of Care Note [code = 04776-2] Goal Plan of Care Note [code = 09216-0] Goal Plan of Care Note [code = 36532-9] Goal Plan of Care Note [code = 87692-2] Goal Plan of Care Note [code = 03905-8] Goal Plan of Care Note [code = 34707-7] Goal Plan of Care Note [code = 88358-6] Goal Plan of Care Note [code = 80493-3] Goal Plan of Care Note [code = 73377-3] Goal Plan of Care Note [code = 12457-0] Goal Plan of Care Note [code = 53690-3] Goal Plan of Care Note [code = 46343-2] Goal Plan of Care Note [code = 94458-5] Goal Plan of Care Note [code = 86717-4] Goal Plan of Care Note [code = 98686-7] Goal Plan of Care Note [code = 34631-4] Goal Plan of Care Note [code = 48213-2] Goal Plan of Care Note [code = 38837-9] Goal Plan of Care Note [code = 81948-5] Goal Plan of Care Note [code = 69314-8] Goal Plan of Care Note [code = 04594-6] Goal Plan of Care Note [code = 68190-1] Goal Plan of Care Note [code = 25858-9] Goal Plan of Care Note [code = 59738-0] Goal Plan of Care Note [code = 08757-7] Goal Plan of Care Note [code = 68649-5] Goal Plan of Care Note [code = 88908-2] Goal Plan of Care Note [code = 79644-8] Goal Plan of Care Note [code = 71493-8] Goal Plan of Care Note [code = 61103-7] Goal Plan of Care Note [code = 46618-4] Goal Plan of Care Note [code = 44242-3] Goal Plan of Care Note [code = 28038-3] Goal Plan of Care Note [code = 88638-3] Goal Plan of Care Note [code = 66435-9] Goal Plan of Care Note [code = 96373-3] Goal Plan of Care Note [code = 63154-3] Goal Plan of Care Note [code = 18778-7] Goal Plan of Care Note [code = 93391-8] Goal Plan of Care Note [code = 20244-0] Goal Plan of Care Note [code = 01347-3] Goal Plan of Care Note [code = 94026-6] Goal Plan of Care Note [code = 22973-0] Goal Plan of Care Note [code = 48001-2] Goal Plan of Care Note [code = 62938-2] Goal Plan of Care Note [code = 86175-6] Goal Plan of Care Note [code = 18462-0] Goal Plan of Care Note [code = 58228-7] Goal Plan of Care Note [code = 20934-2] Goal Plan of Care Note [code = 20473-2] Goal Plan of Care Note [code = 76240-3] Goal Plan of Care Note [code = 86075-8] Goal Plan of Care Note [code = 31663-4] Goal Plan of Care Note [code = 10928-0] Encounters Start End Encounter Admission Attending Care Care Encounter Source Date/Time Date/Time Type Type Clinicians Facility Department ID 2021-12-14 Outpatient JAMALLINENI [facility] [id number] Common 08:02:01 [facility] AURELIOHM - CH I I [facility] 2021-11-01 Outpatient STLML[facility] [id number] Common 08:28:00 [facility] 2021-05-10 Outpatient STLC [facility] [id number] Common 14:37:15 [facility] 2022-06-06 2022-06-06 Outpatient SFA SFA [id number] [place] 15:21:28 15:21:28 [id number] Colin Solis 2022-04-26 2022-04-26 Outpatient SFA SFA [id number] [place] 09:24:32 09:24:32 0112 F Will 2022-04-23 2022-04-23 Outpatient SFA SFA [id number] [place] 15:40:31 15:40:31 [id number] Colin Will 2022-01-16 2022-01-16 Outpatient SFA SFA [id number] [place] 13:58:33 13:58:33 1004 F Will 2022-01-16 2022-01-16 Outpatient [id number] 00:00:00 00:00:00 Visit [id number] 2021-12-15 2021-12-15 (TEL) STLMLC STLC [id number] mmon 00:00:00 00:00:00 [facility] 2021-12-14 2021-12-14 NON-BILLAB STLMLC STLMLC [id number] Common 00:00:00 [facility]:00:[facility] 2021-12-12 Outpatient [id number] 00:00:00 00:00:00 Visit [id number] 2021-10-30 2021-10-30 Outpatient [id number] 00:00:00 00:00:00 Visit [id number] [id number] 2021-08-01 2021-08-01 Outpatient Ananda [facility] [id number] Univers 09:00:00 09:00:00 ROXY [id number] [facility] 2021-08-01 2021-08-01 Outpatient Ananda [facility]SON [facility] [id number] Univers 09:00:00 09:00:00 ROXY [facility] 2021-07-01 2021-07-01 Outpatient ABHILASH HANSA MCKEON [id number] [place] 00:00:00 00:00:00 YUE Seybol david 2021-06-25 2021-06-25 Outpatient HANSA HUNG [id number] [place] 00:00:00 00:00:00 YUE Kwongol david 2020-10-03 2020-10-03 Telephone [facility] [id number] Univers 00:00:00 00:00:00 [facility] [id number] it y of Surgical [id number] Hi as Specialti [id number] Nv dical 198 [facility] 2020-04-29 2020-04-29 Outpatient Ananda [facility] [id number] Univers 15:00:00 15:00:00 YESIKA [id number] [facility] 2020-04-29 2020-04-29 [facility] [id number] Univers 15:00:00 15:00:00 YESIKA [facility] 2018-11-06 2018-11-06 [facility] [id number] Common 11:00:00 11:00:00 [facility] 2018-10-09 2018-10-09 [facility] [id number] Common 10:30:00 10:30:00 t Bone Bone [facility] Spiri t and [facility] Results Test Description Test Time Test Comments Results Result Comments Source CULTURE, URINE 2022-01-19 SPECIMEN NUMBER: 12:40:01 [id number] CULTURE, URINE SPECIMEN NUMBER: [id number] SPECIMEN COMMENT: URINE SOURCE: URINE REPORT STATUS: [...] MCG/ML. UNLESS OTHERWISE INDICATED, ALL TESTING PERFORMED [facility] [employer] [address] [place] [address] MEMBER OF PARLIAMENT: KIESHA LEI M.D. CLIA NUMBER [id number] [facility] [place]. [id number] CULTURE, URINE 2022-01-19 00:00:00 Test Item Value Reference Range Interpretation Comme nts CULTURE, URINE (test code = 36757) SPECIMEN NUMBER: [id number] CULTURE, [id number] 00:00:00 Test Item Value Reference Range Interpretation Comments CULTURE, URINE (test SPECIMEN NUMBER: code = 61423) [id number] COMPREHENSIVE METABOLIC [id number] 00:00:00 Test Item Value Reference Range Interpretation Comments GLUCOSE (test code = 2217) 123 MG/DL BUN (test code = 2208) 81 MG/DL CREATININE (test code = 2214) 5.82 MG/DL eGFR AMER. (test code = 7 ML/MIN/1.73 35255) eGFR (2020 CKD-EPI) (test code 6 ML/MIN/1.73 = 47631) CALC BUN/CREAT (test code = 14 RATIO [...] BILIRUBIN, TOTAL (test code = 0.4 MG/DL 2207) ALKALINE PHOSPHATASE (test code 76 U/L = 2204) AST (test code = 2218) 37 U/L ALT (test code = 2219) 12 U/L COMPREHENSIVE METABOLIC [id number] 00:00:00 Test Item Value Reference Range Interpretation Comments GLUCOSE (test code = 2217) 123 MG/DL BUN (test code = 2208) 81 MG/DL CREATININE (test code = 2214) 5.82 MG/DL eGFR AMER. (test code = 7 ML/MIN/1.73 16612) eGFR (2020 CKD-EPI) (test code 6 ML/MIN/1.73 = 03363) CALC BUN/CREAT (test code = 14 RATIO [...] code = 2219) 12 U/L COMPREHENSIVE METABOLIC [id number] 00:00:00 Test Item Value Reference Range Interpretation Comments GLUCOSE (test code = 2217) 123 MG/DL BUN (test code = 2208) 81 MG/DL CREATININE (test code = 2214) 5.82 MG/DL eGFR AMER. (test code = 7 ML/MIN/1.73 63367) eGFR (2020 CKD-EPI) (test code 6 ML/MIN/1.73 = 09735) CALC BUN/CREAT (test code = 14 RATIO [...] code = 2219) 12 U/L COMPREHENSIVE METABOLIC [id number] 00:00:00 Test Item Value Reference Range Interpretation Comments GLUCOSE (test code = 2217) 123 MG/DL BUN (test code = 2208) 81 MG/DL CREATININE (test code = 2214) 5.82 MG/DL eGFR AMER. (test code = 7 ML/MIN/1.73 41307) eGFR (2020 CKD-EPI) (test code 6 ML/MIN/1.73 = 44495) CALC BUN/CREAT (test code = 14 RATIO [...] code = 2219) 12 U/L COMPREHENSIVE METABOLIC [id number] 00:00:00 Test Item Value Reference Range Interpretation Comments GLUCOSE (test code = 2217) 123 MG/DL BUN (test code = 2208) 81 MG/DL CREATININE (test code = 2214) 5.82 MG/DL eGFR AMER. (test code = 7 ML/MIN/1.73 59928) eGFR (2020 CKD-EPI) (test code 6 ML/MIN/1.73 = 24375) CALC BUN/CREAT (test code = 14 RATIO [...] CALC GLOBULIN (test code = 2.9 G/DL 0) CALC A/G RATIO (test code = 1.1 RATIO 2234) BILIRUBIN, TOTAL (test code = 0.4 MG/DL 2206) ALKALINE PHOSPHATASE (test code 76 U/L = 2203) AST (test code = 2218) 37 U/L ALT (test code = 2219) 12 U/L COMPREHENSIVE METABOLIC [id number] 00:00:00 Test Item Value Reference Range Interpretation Comments GLUCOSE (test code = 2217) 123 MG/DL BUN (test code = 2208) 81 MG/DL CREATININE (test code = 2214) 5.82 MG/DL eGFR AMER. (test code = 7 ML/MIN/1.73 71085) eGFR (2020 CKD-EPI) (test code 6 ML/MIN/1.73 = 98313) CALC BUN/CREAT (test code = 14 RATIO [...] code = 1.33 NG/DL 2823) CBC W/AUTO [id number] 00:00:00 Test Item Value Reference Range Interpretation [...] code = 1015) 297 K/UL CBC W/AUTO [id number] 00:00:00 Test Item Value Reference Range Interpretation [...] code = 1015) 297 K/UL CBC W/AUTO [id number] 00:00:00 Test Item Value Reference Range Interpretation [...] code = 1015) 297 K/UL COMPREHENSIVE METABOLIC [id number] 00:00:00 Test Item Value Reference Range Interpretation Comments GLUCOSE (test code = 2217) 92 MG/DL BUN (test code = 2208) 29 MG/DL CREATININE (test code = 2214) 1.53 MG/DL eGFR AMER. (test code 36 ML/MIN/1.73 = 26904) eGFR NON- AMER. (test 31 ML/MIN/1.73 code = 05753) CALC BUN/CREAT (test code = 19 RATIO [...] code = 2219) 18 U/L COMPREHENSIVE METABOLIC [id number] 00:00:00 Test Item Value Reference Range Interpretation Comments GLUCOSE (test code = 2217) 92 MG/DL BUN (test code = 2208) 29 MG/DL CREATININE (test code = 2214) 1.53 MG/DL eGFR AMER. (test code 36 ML/MIN/1.73 = 32802) eGFR NON- AMER. (test 31 ML/MIN/1.73 code = 86796) CALC BUN/CREAT (test code = 19 RATIO [...] ALT (test code = 2219) 18 U/L [id number] 00:00:00 Test Item Value Reference Range Interpretation Comments TSH, THIRD GENERATION (test code 3.330 UIU/ML = 2821) [id number] 00:00:00 Test Item Value Reference Range Interpretation Comments TSH, THIRD GENERATION (test code 3.330 UIU/ML = 2821) [id number] 00:00:00 Test Item Value Reference Range Interpretation [...] code = 1.33 NG/DL 2823) CBC W/AUTO [id number] 00:00:00 Test Item Value Reference Range Interpretation [...] code = 1015) 297 K/UL CBC W/AUTO [id number] 00:00:00 Test Item Value Reference Range Interpretation [...] code = 1015) 297 K/UL CBC W/AUTO [id number] 00:00:00 Test Item Value Reference Range Interpretation [...] code = 1015) 297 K/UL COMPREHENSIVE METABOLIC [id number] 00:00:00 Test Item Value Reference Range Interpretation Comments GLUCOSE (test code = 2217) 92 MG/DL BUN (test code = 2208) 29 MG/DL CREATININE (test code = 2214) 1.53 MG/DL eGFR AMER. (test code 36 ML/MIN/1.73 = 46903) eGFR NON- AMER. (test 31 ML/MIN/1.73 code = 74652) CALC BUN/CREAT (test code = 19 RATIO 2235) SODIUM (test code = 2231) 142 MEQ/L POTASSIUM (test code = 2228) 5.2 MEQ/L CHLORIDE (test code = 2215) 109 MEQ/L CARBON DIOXIDE (test code = 20 MEQ/L 2206) CALCIUM (test code = 2209) 9.3 MG/DL PROTEIN, TOTAL (test code = 6.5 G/DL 222) ALBUMIN (test code = 2201) 3.9 G/DL CALC GLOBULIN (test code = 2.6 G/DL 2240) CALC A/G RATIO (test code = 1.5 RATIO 2234) BILIRUBIN, TOTAL (test code = 0.3 MG/DL 220) ALKALINE PHOSPHATASE (test 73 U/L code = 2204) AST (test code = 2218) 27 U/L ALT (test code = 2219) 18 U/L COMPREHENSIVE METABOLIC [id number] 00:00:00 Test Item Value Reference Range Interpretation Comments GLUCOSE (test code = 2217) 92 MG/DL BUN (test code = 2208) 29 MG/DL CREATININE (test code = 2214) 1.53 MG/DL eGFR AMER. (test code 36 ML/MIN/1.73 = 55252) eGFR NON- AMER. (test 31 ML/MIN/1.73 code = 20460) CALC BUN/CREAT (test code = 19 RATIO [...] ALT (test code = 2219) 18 U/L [id number] 00:00:00 Test Item Value Reference Range Interpretation Comments TSH, THIRD GENERATION (test code 3.330 UIU/ML = 2821) [id number] 00:00:00 Test Item Value Reference Range Interpretation Comments TSH, THIRD GENERATION (test code 3.330 UIU/ML = 2821) [id number] 00:00:00 Test Item Value Reference Range Interpretation [...] code = 1.33 NG/DL 2823) CBC W/AUTO [id number] 00:00:00 Test Item Value Reference Range Interpretation [...] code = 1015) 297 K/UL CBC W/AUTO [id number] 00:00:00 Test Item Value Reference Range Interpretation [...] code = 1015) 297 K/UL CBC W/AUTO [id number] 00:00:00 Test Item Value Reference Range Interpretation [...] code = 1015) 297 K/UL COMPREHENSIVE METABOLIC [id number] 00:00:00 Test Item Value Reference Range Interpretation Comments GLUCOSE (test code = 2217) 92 MG/DL BUN (test code = 2208) 29 MG/DL CREATININE (test code = 2214) 1.53 MG/DL eGFR AMER. (test code 36 ML/MIN/1.73 = 83979) eGFR NON- AMER. (test 31 ML/MIN/1.73 code = 61209) CALC BUN/CREAT (test code = 19 RATIO [...] code = 2219) 18 U/L COMPREHENSIVE METABOLIC [id number] 00:00:00 Test Item Value Reference Range Interpretation Comments GLUCOSE (test code = 2217) 92 MG/DL BUN (test code = 2208) 29 MG/DL CREATININE (test code = 2214) 1.53 MG/DL eGFR AMER. (test code 36 ML/MIN/1.73 = 70538) eGFR NON- AMER. (test 31 ML/MIN/1.73 code = 63793) CALC BUN/CREAT (test code = 19 RATIO [...] CALC GLOBULIN (test code = 2.6 G/DL 0) CALC A/G RATIO (test code = 1.5 RATIO 2233) BILIRUBIN, TOTAL (test code = 0.3 MG/DL 2206) ALKALINE PHOSPHATASE (test 73 U/L code = 2204) AST (test code = 2218) 27 U/L ALT (test code = 2219) 18 U/L [id number] 00:00:00 Test Item Value Reference Range Interpretation Comments TSH, THIRD GENERATION (test code 3.330 UIU/ML = 2821) [id number] 00:00:00 Test Item Value Reference Range Interpretation Comments TSH, THIRD GENERATION (test code 3.330 UIU/ML = 2821) [id number] 00:00:00 Test Item Value Reference Range Interpretation Comments TSH, THIRD GENERATION (test code 3.330 UIU/ML = 2821) FREE T4 (THYROXINE)2020-02-02 00:00:00 Test Item Value Reference Range Interpretation Comments FREE T4 (THYROXINE) (test code = 1.33 NG/DL 2823) CALCIUM, [id number] 06:48:00 Test Item Value Reference Range Interpretation Comments CALCIUM IONIZED (BEAKER) (test 1.05 mmol/L 1.12-1.27 L code = 698) PH, BLOOD (BEAKER) (test code = 7.43 1810) [id number] 06:12:00 Test Item Value Reference Range Interpretation Comments PHOSPHORUS (BEAKER) (test code = 3.4 mg/dL 2.3-4.7 604) [id number] 06:12:00 Test Item Value Reference Range Interpretation Comments MAGNESIUM (BEAKER) (test code = 1.7 mg/dL 1.6-2.6 627) BASIC METABOLIC [id number] 06:12:00 Test Item Value Reference Range Interpretation [...] PATIEN TS. CBC W/PLT COUNT & AUTO [id number] 05:34:00 Test Item Value Reference Range Interpretation [...] code = 2801) MR, MRA, BRAIN, WITHOUT [id number] 10:59:00Reason for exam:->Ischemic Stroke EvaluationFINAL REPORT MRA Head CLINICAL HISTORY: Stroke TECHNIQUE: MRA of the head utilizing 3-D uude-xv-ljkpsx technique, with 3-D reconstructions. COMPARISON: None IMPRESSION: Allowing for mild motion degradation, there is no evidence for a havasupai of Lopez proximal branch vessel occlusion. Distal branch vessel occlusions cannot be excluded. Aneurysms cannot be excluded. MRA Neck CLINICAL HISTORY: Stroke TECHNIQUE: MRA of the neck utilizing 2-D and 3-D ymfd-ul-nthzac technique, with 3-D reconstructions. COMPARISON: None IMPRESSION: [...] MDReport Verified Date/Time: 06/16/2018 10:59:34 Reading Location: [address] Neuro Reading Room MR, MRA, NECK, WITHOUT IV [id number] 10:59:00Reason for exam:->Ischemic Stroke EvaluationFINAL REPORT MRA Head CLINICAL HISTORY: Stroke TECHNIQUE: MRA of the head utilizing 3-D mizs-qz-fjptlw technique, with 3-D reconstructions. COMPARISON: None IMPRESSION: Allowing for mild motion degradation, there is no evidence for a havasupai of Lopez proximal branch vessel occlusion. Distal branch vessel occlusions cannot be excluded. Aneurysms cannot be excluded. MRA Neck CLINICAL HISTORY: Stroke TECHNIQUE: MRA of the neck utilizing 2-D and 3-D udeb-ut-ulsnkl technique, with 3-D reconstructions. COMPARISON: None IMPRESSION: [...] MDReport Verified Date/Time: 06/16/2018 10:59:34 Reading Location: [address] Neuro Reading Room MR, BRAIN, WITHOUT [id number] 10:52:00Reason for exam:->Ischemic Stroke EvaluationFINAL REPORT MRI [...] MDReport Verified Date/Time: 06/16/2018 10:52:22 Reading Location: [facility] B1 C013V Neuro Reading Room HEMOGLOBIN [id number] 09:43:00 Test Item Value Reference Range Interpretation Comments HEMOGLOBIN A1C (BEAKER) (test code = 5.9 % 4.3-6.1 368) VITAMIN [id number] 06:40:00 Test Item Value Reference Range Interpretation Comments VITAMIN B12 (BEAKER) (test code = 375 pg/mL 213-816 774) TSH/FREE T4 IF [id number] 05:45:00 Test Item Value Reference Range Interpretation Comments THYROID STIMULATING HORMONE 4.44 uIU/mL 0.35-4.94 (BEAKER) (test code = 772) LIPID [id number] 05:27:00 Test Item Value Reference Range Interpretation [...]
[2022-06-15] MEDS ORDERED: HYDROCODONE/APAP 5/325 MG TAB ONE (03:02)
--- NOTE | 2022-06-15 04:53 | ER ---
Nurse's Notes [facility] Name: Isadora Jeffery Age: 86 yrs Sex: Female : 1935 Arrival Date: 06/15/2022 Time: 02:17 Bed 7 Private MD: Diagnosis: Fall on same level, unspecified;Contusion of right hip Presentation: 06/15 02:18 Chief complaint: EMS states: pt fell around 0900 yesterday morning. She is now feeling kd3 pain in her hips. The son states that she has a history of dementia and is on blood thinners but he does not know what blood thinner she is on. Coronavirus screen: Vaccine status:. Ebola Screen: No symptoms or risks identified at this time. Initial Sepsis Screen: Does the patient meet any 2 criteria? No. Patient's initial sepsis screen is negative. Does the patient have a suspected source of infection? No. Patient's initial sepsis screen is negative. Risk Assessment: Do you want to hurt yourself or someone else? Patient reports no desire to harm self or others. Onset of symptoms was June 15, 2022. 02:18 Method Of Arrival: EMS: [facility] kd3 02:18 Acuity: ROMELIA 3 kd3 Triage Assessment: 02:20 General: Appears uncomfortable, Behavior is calm, cooperative. Pain: Complains of pain kd3 in pelvis. Historical: - Allergies: 02:20 Codeine; kd3 - PMHx: 02:20 CVA; Hypothyroidism; kidney disease; Hyperlipidemia; Dialysis; M-W-F; Depression; kd3 Hypertension; - PSHx: 02:20 Appendectomy; Cholecystectomy; Total abdominal hysterectomy; kd3 - Immunization history:: Adult Immunizations up to date. - Social history:: Smoking status: unknown. - Family history:: not pertinent. Screenin:33 [facility] ED Fall Risk Assessment (Adult) History of falling in the last 3 months, as6 including since admission Yes- single mechanical fall (1 pt). Abuse screen: Denies threats or abuse. Denies injuries from another. Nutritional screening: No deficits noted. Tuberculosis screening: No symptoms or risk factors identified. Vital Signs: 02:18 BP 160 / 69; Pulse 75; Resp 19; Temp 97.8(O); Pulse Ox 94% ; kd3 02:19 BP 160 / 69; Pulse 62; Resp 20; Temp 97.8(O); Pulse Ox 92% on R/A; Weight 44 kg; Height oe 5 ft. 7 in. (170.18 cm); Pain 9/10; 03:00 BP 164 / 69; Pulse 71; Resp 18 S; Pulse Ox 94% on R/A; as6 04:00 BP 150 / 87; Pulse 68; Resp 18 S; Pulse Ox 95% on R/A; as6 05:00 BP 157 / 64; Pulse 67; Resp 16 S; Pulse Ox 98% on R/A; as6 02:19 Body Mass Index 15.19 (44.00 kg, 170.18 cm) oe ED Course: 02:17 Patient arrived in ED. rv1 02:18 Homero Pa MD is Attending Physician. rt 02:18 Emmie Paez RN is Primary Nurse. kd3 02:20 Triage completed. kd3 02:20 Arm band placed on right wrist. kd3 05:32 Bed in low position. Call light in reach. Side rails up X2. as6 05:33 No provider procedures requiring assistance completed. Patient did not have IV access as6 during this emergency room visit. Administered Medications: 03:04 Drug: HYDROcodone-acetaminophen 5 mg-325 mg 1 tabs Route: PO; as6 05:16 Follow up: Response: No adverse reaction as6 Medication: 05:33 VIS not applicable for this client. as6 Outcome: 04:52 Discharge ordered by . rt 05:33 Discharged to group home. as6 05:33 Condition: stable 05:33 Discharge instructions given to patient, Instructed on discharge instructions, follow up and referral plans. Demonstrated understanding of instructions, follow-up care. 05:33 Patient left the ED. as6 Signatures: Nicolas Tomlin Ashby, RN RN as6 Emmie Paez, RN RN kd3 Homero Pa MD MD rt Bhumi Stauffer rv1
--- NOTE | 2022-06-15 04:53 | EDPHYS ---
Physician Documentation [facility] Name: Isadora Jeffery Age: 86 yrs Sex: Female : 1935 Arrival Date: 06/15/2022 Time: 02:17 Bed 7 Private MD: ED Physician Homero Pa HPI: 06/15 05:05 This 86 yrs old Female presents to ER via EMS with complaints of Fall. rt 05:05 Patient presents to the ED with a fall yesterday morning. She states that she lost her rt balance, fell onto her right side. She states that she did hit her head and that she has a right hip pain. She states that she was ambulatory following the fall. She denies any preceding symptoms including dizziness, syncope. She denies loss of consciousness. She denies other acute complaints at this time, symptoms are moderate in severity, no other aggravating or alleviating factors.. Historical: - Allergies: 02:20 Codeine; kd3 - PMHx: 02:20 CVA; Hypothyroidism; kidney disease; Hyperlipidemia; Dialysis; M-W-F; Depression; kd3 Hypertension; - PSHx: 02:20 Appendectomy; Cholecystectomy; Total abdominal hysterectomy; kd3 - Immunization history:: Adult Immunizations up to date. - Social history:: Smoking status: unknown. - Family history:: not pertinent. ROS: 05:05 Constitutional: Negative for fever, chills, and weight loss, ENT: Negative for injury, rt pain, and discharge, Cardiovascular: Negative for chest pain, palpitations, and edema, Respiratory: Negative for shortness of breath, cough, wheezing, and pleuritic chest pain, Abdomen/GI: Negative for abdominal pain, nausea, vomiting, diarrhea, and constipation, Back: Negative for injury and pain, Skin: Negative for injury, rash, and discoloration, Psych: Negative for depression, anxiety, suicide ideation, homicidal ideation, and hallucinations. 05:05 MS/extremity: Positive for pain, Negative for erythema. 05:05 Neuro: Positive for headache, Negative for altered mental status. Exam: 05:05 Constitutional: This is a well developed, well nourished patient who is awake, alert, rt and in no acute distress. Head/Face: Normocephalic, atraumatic. Neck: Trachea midline, no thyromegaly or masses palpated, and no cervical lymphadenopathy. Supple, full range of motion without nuchal rigidity, or vertebral point tenderness. No Meningismus. Chest/axilla: Normal chest wall appearance and motion. Nontender with no deformity. No lesions are appreciated. Cardiovascular: Regular rate and rhythm with a normal S1 and S2. No gallops, murmurs, or rubs. Normal PMI, no JVD. No pulse deficits. Respiratory: Lungs have equal breath sounds bilaterally, clear to auscultation and percussion. No rales, rhonchi or wheezes noted. No increased work of breathing, no retractions or nasal flaring. Abdomen/GI: Soft, non-tender, with normal bowel sounds. No distension or tympany. No guarding or rebound. No evidence of tenderness throughout. Neuro: Awake and alert, GCS 15, oriented to person, place, time, and situation. Cranial nerves II-XII grossly intact. Motor strength 5/5 in all extremities. Sensory grossly intact. Cerebellar exam normal. Normal gait. Psych: Awake, alert, with orientation to person, place and time. Behavior, mood, and affect are within normal limits. 05:05 Musculoskeletal/extremity: Mild tenderness without deformity to the right hip, pulses, motor, sensation intact. Vital Signs: 02:18 BP 160 / 69; Pulse 75; Resp 19; Temp 97.8(O); Pulse Ox 94% ; kd3 02:19 BP 160 / 69; Pulse 62; Resp 20; Temp 97.8(O); Pulse Ox 92% on R/A; Weight 44 kg; Height oe 5 ft. 7 in. (170.18 cm); Pain 9/10; 03:00 BP 164 / 69; Pulse 71; Resp 18 S; Pulse Ox 94% on R/A; as6 04:00 BP 150 / 87; Pulse 68; Resp 18 S; Pulse Ox 95% on R/A; as6 05:00 BP 157 / 64; Pulse 67; Resp 16 S; Pulse Ox 98% on R/A; as6 02:19 Body Mass Index 15.19 (44.00 kg, 170.18 cm) oe MDM: 02:19 Patient medically screened. rt 05:05 Differential Diagnosis Intracranial hemorrhage, hip fracture, hip dislocation, hip rt contusion. Data reviewed: vital signs, nurses notes, radiologic studies. Independent interpretation of the following test(s) in the Emergency Department X-Ray: My interpretation is No fracture, dislocation to the right hip on my interpretation of the x-ray images. Test considered but Not performed: EKG: Denies syncope, EKG not indicated, labs not indicated. Counseling: I had a detailed discussion with the patient and/or guardian regarding: the historical points, exam findings, and any diagnostic results supporting the discharge/admit diagnosis, radiology results, the need for outpatient follow up. Response to treatment: the patient's symptoms have markedly improved after treatment. 06/15 02:28 Order name: CT Head C Spine rt 06/15 02:28 Order name: Hip Right 2 View XRAY rt 06/15 02:28 Order name: Pelvis XRAY rt Administered Medications: 03:04 Drug: HYDROcodone-acetaminophen 5 mg-325 mg 1 tabs Route: PO; as6 05:16 Follow up: Response: No adverse reaction as6 Disposition Summary: 06/15/22 04:52 Discharge Ordered Location: Home rt Problem: new rt Symptoms: have improved rt Condition: Stable rt Diagnosis - Fall on same level, unspecified rt - Contusion of right hip rt Followup: rt - With: Private Physician - When: 2 - 3 days - Reason: Discharge Instructions: - Discharge Summary Sheet rt - Fall Prevention in the Home, Adult rt - Hip Pain rt Forms: - Medication Reconciliation Form rt - Thank You Letter rt - Antibiotic Education rt - Prescription Opioid Use rt Signatures: Dispatcher [employer] Yaakov Davidson RN RN as6 Emmie Paez RN RN kd3 Homero Pa MD MD rt
--- NOTE | 2022-06-15 09:57 | RAD REPORT ---
EXAM DESCRIPTION: CT - Head C Spine Mpr Wo Con - 06/15/2022 6:19 am CLINICAL HISTORY: 86 years Female TRAUMA TECHNIQUE: Multiple axial CT images of the brain and cervical spine were performed followed by sagit vinay and coronal reconstructed images. The CT study is performed according to ALARA (as low as reasona emerson achievable) or ALARA/IMAGE GENTLY, with automatic adjustment of mA and/or kV according to patient size. Performed on: 06/15/2022 at 3:14 AM COMPARISON: Head CT report from 04/29/2019. The images were not available for comparison. FINDINGS: CT HEAD: There is no evidence of mass, acute mass effect or midline shift. There are no acute extra-axial flui d collections. There is no evidence of acute intracranial hemorrhage. The cerebral sulci and ventricles are prominent consistent with moderate cerebral volume loss. There are scattered areas of decreased attenuation within the subcortical and periventricular white m atter most consistent with chronic moderate microangiopathy. There is no significant mucosal thickening of the paranasal sinuses. The mastoid air cells are clear. The orbital contents are grossly unremarkable. No acute osseous abnormalities are identified. No focal soft tissue abnormalities are identified. CT CERVICAL SPINE: The cervical vertebrae are normal in height. There is trace retrolisthesis of C3 relative to C4. Ther e is moderate disc space narrowing at C3-C4 and mild disc space narrowing at C4-C5. Bone mineralizati on is grossly within normal limits. The atlanto-axial articulation is preserved and the odontoid pr ocess is intact. There is normal alignment of the facet joints on the parasagittal images. There are mild degenerative changes of the facet joints. There is no evidence of acute fracture or acute subluxation. There is very mild C3-C4 canal stenosis secondary to a disc osteophyte complex. There is multilevel bilateral neural foraminal stenosis sec ondary to uncovertebral joint and facet joint hypertrophy. The prevertebral soft tissues are within normal limits. There are atherosclerotic calcifications in t he region of the right carotid artery bifurcation and there is a vascular stent within the left carot id artery. There are moderate atherosclerotic calcifications along the subclavian arteries. There is mild fibrosis in the lung apices. There is a right upper lobe calcified granuloma. There is an old he aled fracture of the anterolateral left first rib. A dual-lumen dialysis catheter extends into the ri ght jugular vein. IMPRESSION: CT HEAD: 1. No evidence of acute intracranial pathology. 2. Moderate cerebral atrophy with findings compatible with chronic microangiopathy. CT CERVICAL SPINE: 1. No evidence of acute osseous injury involving the cervical spine. 2. Degenerative changes of the cervical spine as described above. Electronically signed by: Piper Cope DO 06/15/2022 3:46 AM [employer] Due to temporary technical issues with the PACS/Fluency reporting system, reports are being signed by the in house radiologists without review as a courtesy to insure prompt reporting. The interpreting radiologist is fully responsible for the content of the report.
--- NOTE | 2022-06-15 10:14 | RAD REPORT ---
EXAM DESCRIPTION: RAD - Pelvis - 06/15/2022 2:49 am CLINICAL HISTORY: 86 years, Female, BLUNT TRAUMA COMPARISON: None FINDINGS: 1 single frontal view of the pelvis was obtained. 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 The pelvic marissa m is intact. There is scoliosis with degenerative changes lower lumbar spine. Vascular calcification aorta iliac and femoral vessels. No areas of acute bony injuries were demonstrated. No gross soft t issue abnormality is identified. There are no gross intraosseous lesions. No periosteal reaction were seen. 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 IMPRESSION: No acute bony injuries were demonstrated. 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 Electronically signed by: Greg Judd MD 06/15/2022 3:01 AM [employer] Due to temporary technical issues with the PACS/Fluency reporting system, reports are being signed by the in house radiologists without review as a courtesy to insure prompt reporting. The interpreting radiologist is fully responsible for the content of the report.
--- NOTE | 2022-06-15 10:15 | RAD REPORT ---
EXAM DESCRIPTION: RAD - Hip Right 2 View - 06/15/2022 2:49 am CLINICAL HISTORY: 86 years, Female, PAIN Hip Right 2 View COMPARISON: None FINDINGS: 2 views of the hip (frontal view of the right hip and frogleg view of the right hip) were obtained. There is mild bony osteopenia. 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 Vascular calcifications. No areas of acut e bony injuries were demonstrated. No gross soft tissue abnormality is identified. There are no g ross intraosseous lesions. No periosteal reaction were seen. IMPRESSION: Status post total right hip arthroplasty with no evidence for complicating features. Electronically signed by: Greg Judd MD 06/15/2022 3:00 AM [employer] Due to temporary technical issues with the PACS/Fluency reporting system, reports are being signed by the in house radiologists without review as a courtesy to insure prompt reporting. The interpreting radiologist is fully responsible for the content of the report.
== END 2022-06-15 05:33 | disposition home or self-care (01) ==
LOC: ER 02:15
DX: S70.01XA Contusion of right hip, initial encounter (principal); W18.30XA Fall on same level, unspecified, initial encounter; Z88.5 Allergy status to narcotic agent
CPT/HCPCS: 70450; 72125; 72170; 99283

== ENCOUNTER 2022-06-25 06:17 | Inpatient (IN) | payer OTHER ==
--- OUTSIDE RECORDS SUMMARY | 2022-06-25 06:25 | XMS REPORT | Continuity of Care Document ---
:1935 Author Organization [facility] t Address [address] [facility] [address] [place] [address] Care Team Providers Name Role Phone PARKER VITALE Primary Care Physician Unavailable PARKER VITALE Attending Clinician Unavailable MARIO THOMPSON Attending Clinician Unavailable Mario Thompson MD Attending Clinician ROXY JACKSON Attending Clinician Unavailable YUE HUNG Attending Clinician Unavailable Stanley Sanz MD Attending Clinician YESIKA DYER Attending Clinician Unavailable NICOLE RUBALCAVA Attending Clinician Unavailable MARIO THOMPSON Admitting Clinician Unavailable NICOLE RUBALCAVA Admitting Clinician Unavailable Payers Payer Name Policy Type Policy Number Effective Date Expiration Date Haja LYNCH/JOSE [id number] 2022 MEDICARE 00:00:00 ADVANTAGE [facility] [id number] [facility] MEDICARE PART A [id number] 2000 \T\ B 00:00:00 MEDICARE-PART B 5 [id number] 2018 00:00:00 Problems Condition Condition Condition Status Onset Resolution Last Treating Co mments Source Name Details Category Date Date Treatment Clinician Date HTN HTN Disease Active 2019-[address] [facility] (hypertens (hypertens 3-04 Klaudia kes ion) ion) 00:00: Medical 00 Serena HLD HLD Disease Active [facility] (hyperlipi (hyperlipi 3-04 Klaudia kes demia) demia) 00:00: Medical 00 Center CAD CAD Disease Active [facility] (coronary (coronary 3-04 Luke s artery artery 00:00: Medical disease) disease) 00 Center TIA TIA Disease Active [facility] (transient (transient 3-03 Klaudia kes ischemic ischemic 00:00: Medica l attack) attack) 00 Serena Hip Hip Disease Active 2015-04 Univers fracture fracture 0-10 ity of 00:00: [address] Femur Femur Disease Active 2015-04 Univers fracture, fracture, 0-08 ity of right right 00:00: [address] [id number] Right Problem Active Common sciatic Spirit nerve pain - [facility] [id number] Closed Problem Active Common displaced [facility] intertroch - [facility] fracture kes of left Medical femur with Center routine healing, subsequent encounter [id number] [place] [id number] left hip Spirit joint - [facility] [id number] 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 [facility] [id number] Thoracogen Problem Active Com mon ic Spirit scoliosis - [facility] of thoracic [facility] [id number] [place] of [place] [address] right hip [facility] joint pain - [facility] [id number] Scoliosis Problem Active Com mon of lumbar [facility] Med[facility] l of spine Center [...] 3-03 [facility] adverse 00:00: Medical reaction 00 Serena s CODEINE DRUG Active Hallucinates 2015-04 Uni vers INGREDI 0-08 ity of 00:00: [address] Branch Codeine Propensi Active Hallucinatio 2016-1 U nivers ty to ns 0-08 ity of adverse 00:00: [place] reaction 00 Medical s Branch codeine codeine Active Unknown [facility] Social History Social Habit Start Date Stop Date Quantity Comments Source History of [facility] - Tobacco Use [facility] History [facility] Alcohol Comment Medical C enter Exposure to 2022-06-09 2022-06-19 Not sure University of SARS-CoV-2 00:00:00 03:09:00 [place] [facility] (event) Branch History [facility] 2018-06-16 2018-06-[address] [facility] Alcohol Frequency 00:00:00 00:00:00 Medical Center History [facility] 2018-06-16 2018-06-[address] [facility] Alcohol Std 00:00:00 00:00:00 Medical Cente r Drinks History [facility] 2018-06-16 2018-06-[address] [facility] Alcohol Binge 00:00:00 00:00:[address] Tobacco use and 2018-06-15 2018-06-[address] Klaudia kes exposure 00:00:00 00:00:00 [facility] Alcohol intake 2018-06-15 2018-06-15 [facility]:00:00 of alcohol [facility] (finding) Sex Assigned At [address] Klaudia kes 00:00:00 00:00:00 [facility] Smoking Status Start Date Stop Date Source Never Smoker [facility] Medications Ordered Filled Start Stop Current Ordering Indication Dosage Frequency Signature Comments Components Source Medication Medication Date Date Medication? Clinician (SIG) Name Name TAKE No TABLET BY 8-22 MOUTH FOUR 00:00: TIMES A DAY 00 TAKE 2021-0 No TABLET BY 8-22 MOUTH FOUR 00:00: TIMES A DAY 00 TAKE 2021-0 No 650 TABLET BY 8-22 MOUTH FOUR 00:00: TIMES A DAY 00 Dose 2021-0 No Unknown 11-24 00:00: 00 Dose 2021-0 No Unknown 11-24 00:00: 00 Dose 2021-0 No Unknown 11-24 00:00: 00 Dose 2021-0 No Unknown 11-13 00:00: 00 Dose 2021-0 No Unknown 11-13 00:00: 00 Dose 2022-0 No Unknown 8-01 [...] 2022-0 No Unknown 3-21 00:00: 00 metoprolol 2-0 No 1mg tartrate 50 3-21 mg tablet 00:00: 00 Dose 2-0 No Unknown 3-21 00:00: 00 Dose 2-0 No Unknown 3-21 00:00: 00 Dose 2-0 No Unknown 3-21 00:00: 00 Dose 2-0 No Unknown 3-21 00:00: 00 metoprolol 2-0 No 1mg tartrate [...] 1,000 00:00: mcg/mL 00 injection solution Dose 2020-0 No Unknown 7-05 00:00: 00 Dose 1-0 No Unknown 7-05 00:00: 00 Dose 1-0 No Unknown 7-05 00:00: 00 Dose 1-0 No Unknown 7-05 00:00: 00 hydralazine 1-0 No 5mg 25 mg 7-05 tablet 00:00: 00 losartan 1-0 No 1mg 100 mg 7-05 tablet 00:00: 00 Dose 1-0 No Unknown 7-05 00:00: 00 Dose 1-0 No Unknown 7-05 00:00: 00 Dose 1-0 [...] 2021-0 No Unknown 7-05 00:00: 00 hydralazine 1-0 No 5mg 25 mg 7-05 tablet 00:00: [...] Levo-T 25 1-0 No 1mcg mcg tablet 09-09 00:00: 00 cyanocobala 1-0 No 1mcg/mL min (vit 09-09 B-12) 1,000 00:00: mcg/mL 00 injection solution amlodipine 2020-0 No 1mg 10 mg 5-28 tablet 00:00: 00 Levo-T 25 2020-0 No 1mcg mcg tablet 09-09 00:00: 00 cyanocobala 1-0 No 1mcg/mL min [...] 4-05 mg tablet 00:00: 00 Levo-T 25 2021-0 No 1mcg mcg tablet 4-05 00:00: 00 gabapentin 2021-0 No 1mg 300 mg 4-05 capsule 00:00: 00 atorvastati 2021-0 No 1mg n 20 mg 4-05 tablet 00:00: 00 metoprolol 2021-0 No 1mg tartrate 50 4-05 mg tablet 00:00: 00 Levo-T 25 2021-0 No 1mcg mcg tablet 4-05 00:00: 00 gabapentin 2021-0 No 1mg 300 mg 4-05 capsule 00:00: 00 cyanocobala 2021-0 No 1mcg/mL min (vit 4-05 B-12) 1,000 00:00: mcg/mL 00 injection solution cyanocobala 1-0 No 1mcg/mL min (vit 405 B-12) 1,000 00:00: mcg/mL 00 injection solution [...] 00 cyanocobala 1-0 No 1mcg/mL min (vit 1-11 B-12) 1,000 00:00: mcg/mL 00 injection solution cyanocobala 1-0 No 1mcg/mL min (vit 1- B-12) 1,000 00:00: mcg/mL 00 injection solution cyanocobala 1-0 No 1mcg/mL min (vit 1-11 B-12) 1,000 [...] Levo-T 25 2020-0 No 1mcg mcg tablet 09-14 00:00: 00 atorvastati 2020-0 No 1mg n 20 mg 6-02 tablet 00:00: 00 hydralazine 2020-0 No 5mg 25 mg 6-02 tablet 00:00: 00 hydrochloro 2020-0 No 1mg thiazide 6-02 12.5 mg 00:00: tablet 00 alendronate 2020-0 No 1mg 70 mg 6-02 tablet 00:00: 00 Levo-T 25 2020-0 No 1mcg mcg tablet 09-14 00:00: 00 prasugrel 2020-0 No 1mg 10 [...] Levo-T 25 2020-0 No 1mcg mcg tablet 09-14 00:00: 00 prasugrel 2020-0 No 1mg 10 [...] Yes Tucker 2 tablets Common Hour Hour - [place] as needed Spirit 00:00: - [facility] Tylenol 8 Tylenol 8 No 2{table TID Tylenol 8 Hour 650 MG Hour 650 MG 11-06 ts_as_n Hour 650 00:00: eeded} MG 00 Tylenol 8 Tylenol 8 No 2{table TID Tylenol 8 Hour 650 MG Hour 650 MG -25 ts_as_n Hour 650 00:00: eeded} MG 00 metoprolol Yes 50mg QD Take [address] (LOPRESSOR) 3-05 by mouth Luke s 25 MG 20:29: daily. Medical tablet 27 Serena prasugr Yes 10mg QD Take [address] (EFFIENT) 3-05 by mouth [facility]ukes 10 mg Tab 20:29: daily. Medica l tablet 27 Serena levothyroxi Yes 25ug Take [address] ne 3-05 mcg by Lukes (SYNTHROID, 20:29: mouth Medic al LEVOTHROID) 27 Every Center 25 MCG morning on tablet an empty stomach. losartan Yes 100mg QD Take [address] (COZAAR) 3-05 mg by [facility]ukes 100 MG 20:29: mouth Medical tablet 27 daily. Serena metoprolol Yes 50mg QD Take [address] (LOPRESSOR) 3-05 by mouth Luke s 25 MG 20:29: daily. Medical tablet 27 [facility] Yes 10mg QD Take [address] (EFFIENT) 3-05 by mouth [facility]ukes 10 mg Tab 20:29: daily. Medica l tablet 27 Serena levothyroxi Yes 25ug Take [address] ne 3-05 mcg by Lukes (SYNTHROID, 20:29: mouth Medic al LEVOTHROID) 27 Every Center 25 MCG morning on tablet an empty stomach. losartan Yes 100mg QD Take [address] (COZAAR) 3-05 mg by [facility]ukes 100 MG 20:29: mouth Medical tablet 27 daily. Serena metoprolol Yes 50mg QD Take [address] (LOPRESSOR) 3-05 by mouth Luke s 25 MG 20:29: daily. Medical tablet 27 [place] prasugrel 2019-0 Yes 10mg QD Take [address] (EFFIENT) 3-05 by mouth [facility]ukes 10 mg Tab 20:29: daily. Medica l tablet 27 Serena levothyroxi 20190 Yes 25ug Take [address] ne 3-05 mcg by Lukes (SYNTHROID, 20:29: mouth Medic al LEVOTHROID) 27 Every Center 25 MCG morning on tablet an empty stomach. losartan 2019-0 Yes 100mg QD Take [address] (COZAAR) 3-05 mg by [facility]ukes 100 MG 20:29: mouth Medical tablet 27 daily. Serena metoprolol 0 Yes 50mg QD Take [address] (LOPRESSOR) 3-05 by mouth Luke s 25 MG 20:29: daily. Medical tablet 27 Serena prasugr 0 Yes 10mg QD Take [address] (EFFIENT) 3-05 by mouth [facility]ukes 10 mg Tab 20:29: daily. Medica l tablet 27 Serena levothyroxi 0 Yes 25ug Take [address] ne 3-05 mcg by Lukes (SYNTHROID, 20:29: mouth Medic al LEVOTHROID) 27 Every Center 25 MCG morning on tablet an empty stomach. losartan 2018-0 Yes 100mg QD Take [address] (COZAAR) 3-05 mg by [facility]ukes 100 MG 20:29: mouth Medical tablet 27 daily. Serena metoprolol 0 Yes 50mg QD Take [address] (LOPRESSOR) 3-05 by mouth Luke s 25 MG 20:29: daily. Medical tablet 27 Se[place] prasugr 0 Yes 10mg QD Take [address] (EFFIENT) 3-05 by mouth [facility]ukes 10 mg Tab 20:29: daily. Medica l tablet 27 Serena levothyroxi 20190 Yes 25ug Take [address] ne 3-05 mcg by Lukes (SYNTHROID, 20:29: mouth Medic al LEVOTHROID) 27 Every Center 25 MCG morning on tablet an empty stomach. losartan 2019-0 Yes 100mg QD Take [address] (COZAAR) 3-05 mg by Lukes 100 MG 20:29: mouth Medical tablet 27 daily. Serena metoprolol 2019-0 Yes 50mg QD Take [address] (LOPRESSOR) 3-05 by mouth Luke s 25 MG 20:29: daily. Medical tablet 27 Serena prasugr 20190 Yes 10mg QD Take [address] (EFFIENT) 3-05 by mouth [facility]ukes 10 mg Tab 20:29: daily. Medica l tablet 27 Serena levothyroxi 0 Yes 25ug Take [address] ne 3-05 mcg by Lukes (SYNTHROID, 20:29: mouth Medic al LEVOTHROID) 27 Every Center 25 MCG morning on tablet an empty stomach. losartan 2018-0 Yes 100mg QD Take [address] (COZAAR) 3-05 mg by Lukes 100 MG 20:29: mouth Medical tablet 27 daily. Serena metoprolol 0 Yes 50mg QD Take [address] (LOPRESSOR) 3-05 by mouth Luke s 25 MG 20:29: daily. Medical tablet 27 Serena prasugr 0 Yes 10mg QD Take [address] (EFFIENT) 3-05 by mouth Lukes 10 mg Tab 20:29: daily. Medica l tablet 27 Serena levothyroxi 0 Yes 25ug Take [address] ne 3-05 mcg by Lukes (SYNTHROID, 20:29: mouth Medic al LEVOTHROID) 27 Every Center 25 MCG morning on tablet an empty stomach. losartan 2018-0 Yes 100mg QD Take [address] (COZAAR) 3-05 mg by Lukes 100 MG 20:29: mouth Medical tablet 27 daily. Serena metoprolol 0 Yes 50mg QD Take [address] (LOPRESSOR) 3-05 by mouth Luke s 25 MG 20:29: daily. Medical tablet 27 Serena prasugr 0 Yes 10mg QD Take [address] (EFFIENT) 3-05 by mouth Lukes 10 mg Tab 20:29: daily. Medica l tablet 27 Serena levothyroxi 0 Yes 25ug Take [address] ne 3-05 mcg by Lukes (SYNTHROID, 20:29: mouth Medic al LEVOTHROID) 27 Every Center 25 MCG morning on tablet an empty stomach. losartan 2019-0 Yes 100mg QD Take [address] (COZAAR) 3-05 mg by [facility]ukes 100 MG 20:29: mouth Medical tablet 27 daily. Serena metoprolol 2019-0 Yes 50mg QD Take [address] (LOPRESSOR) 3-05 by mouth Luke s 25 MG 20:29: daily. Medical tablet 27 Serena prasugr 0 Yes 10mg QD Take [address] (EFFIENT) 3-05 by mouth [facility]ukes 10 mg Tab 20:29: daily. Medica l tablet 27 Serena levothyroxi 0 Yes 25ug Take [address] ne 3-05 mcg by Lukes (SYNTHROID, 20:29: mouth Medic al LEVOTHROID) 27 Every Center 25 MCG morning on tablet an empty stomach. losartan 2018-0 Yes 100mg QD Take [address] (COZAAR) 3-05 mg by Lukes 100 MG 20:29: mouth Medical tablet 27 daily. Serena metoprolol 0 Yes 50mg QD Take [address] (LOPRESSOR) 3-05 by mouth Luke s 25 MG 20:29: daily. Medical tablet 27 Serena prasugr Yes 10mg QD Take [address] (EFFIENT) 3-05 by mouth [facility]ukes 10 mg Tab 20:29: daily. Medica l tablet 27 Serena levothyroxi 0 Yes 25ug Take [address] ne 3-05 mcg by Lukes (SYNTHROID, 20:29: mouth Medic al LEVOTHROID) 27 Every Center 25 MCG morning on tablet an empty stomach. losartan 0 Yes 100mg QD Take [address] (COZAAR) 3-05 mg by Lukes 100 MG 20:29: mouth Medical tablet 27 daily. Serena metoprolol 0 Yes 50mg QD Take [address] (LOPRESSOR) 3-05 by mouth Luke s 25 MG 20:29: daily. Medical tablet 27 Serena prasugr 0 Yes 10mg QD Take [address] (EFFIENT) 3-05 by mouth Lukes 10 mg Tab 20:29: daily. Medica l tablet 27 Serena levothyroxi 0 Yes 25ug Take [address] ne 3-05 mcg by Lukes (SYNTHROID, 20:29: mouth Medic al LEVOTHROID) 27 Every Center 25 MCG morning on tablet an empty stomach. losartan 2018-0 Yes 100mg QD Take [address] (COZAAR) 3-05 mg by Lukes 100 MG 20:29: mouth Medical tablet 27 daily. Serena metoprolol 0 Yes 50mg QD Take [address] (LOPRESSOR) 3-05 by mouth Luke s 25 MG 20:29: daily. Medical tablet 27 Serena prasugr 0 Yes 10mg QD Take [address] (EFFIENT) 3-05 by mouth Lukes 10 mg Tab 20:29: daily. Medica l tablet 27 Serena levothyroxi 0 Yes 25ug Take [address] ne 3-05 mcg by Lukes (SYNTHROID, 20:29: mouth Medic al LEVOTHROID) 27 Every Center 25 MCG morning on tablet an empty stomach. losartan 0 Yes 100mg QD Take [address] (COZAAR) 3-05 mg by Lukes 100 MG 20:29: mouth Medical tablet 27 daily. Serena metoprolol Yes 50mg QD Take [address] (LOPRESSOR) 3-05 by mouth Luke s 25 MG 20:29: daily. Medical tablet 27 [facility] Yes 10mg QD Take [address] (EFFIENT) 3-05 by mouth Lukes 10 mg Tab 20:29: daily. Medica l tablet 27 Serena levothyroxi Yes 25ug Take [address] ne 3-05 mcg by Lukes (SYNTHROID, 20:29: mouth Medic al LEVOTHROID) 27 Every Center 25 MCG morning on tablet an empty stomach. losartan 0 Yes 100mg QD Take [address] (COZAAR) 3-05 mg by Lukes 100 MG 20:29: mouth Medical tablet 27 daily. Serena metoprolol 0 Yes 50mg QD Take [address] (LOPRESSOR) 3-05 by mouth Luke s 25 MG 20:29: daily. Medical tablet 27 [place] prasugr 0 Yes 10mg QD Take [address] (EFFIENT) 3-05 by mouth Lukes 10 mg Tab 20:29: daily. Medica l tablet 27 Serena levothyroxi 0 Yes 25ug Take [address] ne 3-05 mcg by Lukes (SYNTHROID, 20:29: mouth Medic al LEVOTHROID) 27 Every Center 25 MCG morning on tablet an empty stomach. losartan 2018-0 Yes 100mg QD Take [address] (COZAAR) 3-05 mg by Lukes 100 MG 20:29: mouth Medical tablet 27 daily. Serena metoprolol 0 Yes 50mg QD Take [address] (LOPRESSOR) 3-05 by mouth Luke s 25 MG 20:29: daily. Medical tablet 27 [place] prasugr 2019-0 Yes 10mg QD Take [address] (EFFIENT) 3-05 by mouth Lukes 10 mg Tab 20:29: daily. Medica l tablet 27 Serena levothyroxi 0 Yes 25ug Take [address] ne 3-05 mcg by Lukes (SYNTHROID, 20:29: mouth Medic al LEVOTHROID) 27 Every Center 25 MCG morning on tablet an empty stomach. losartan 2019-0 Yes 100mg QD Take [address] (COZAAR) 3-05 mg by Lukes 100 MG 20:29: mouth Medical tablet 27 daily. Serena metoprolol 2019-0 Yes 50mg QD Take [address] (LOPRESSOR) 3-05 by mouth Luke s 25 MG 20:29: daily. Medical tablet 27 [facility] 0 Yes 10mg QD Take [address] (EFFIENT) 3-05 by mouth Lukes 10 mg Tab 20:29: daily. Medica l tablet 27 Serena levothyroxi 0 Yes 25ug Take [address] ne 3-05 mcg by Lukes (SYNTHROID, 20:29: mouth Medic al LEVOTHROID) 27 Every Center 25 MCG morning on tablet an empty stomach. losartan 2018-0 Yes 100mg QD Take [address] (COZAAR) 3-05 mg by [facility]ukes 100 MG 20:29: mouth Medical tablet 27 daily. Serena metoprolol 2018-0 Yes 50mg QD Take [address] (LOPRESSOR) 3-05 by mouth Luke s 25 MG 20:29: daily. Medical tablet 27 Serena prasugr 2018-0 Yes 10mg QD Take [address] (EFFIENT) 3-05 by mouth [facility]ukes 10 mg Tab 20:29: daily. Medica l tablet 27 Serena levothyroxi 20190 Yes 25ug Take [address] ne 3-05 mcg by Lukes (SYNTHROID, 20:29: mouth Medic al LEVOTHROID) 27 Every Center 25 MCG morning on tablet an empty stomach. losartan 2019-0 Yes 100mg QD Take [address] (COZAAR) 3-05 mg by [facility]ukes 100 MG 20:29: mouth Medical tablet 27 daily. Serena metoprolol 2019-0 Yes 50mg QD Take [address] (LOPRESSOR) 3-05 by mouth Luke s 25 MG 20:29: daily. Medical tablet 27 [place] prasugrel Yes 10mg QD Take 10 mg [...] MG 20:29: mouth Medical tablet 27 daily. Serena metoprolol Yes 50mg QD Take [address] (LOPRESSOR) 3-05 by mouth Luke s 25 MG 20:29: daily. Medical tablet 27 [place] prasugrel Yes 10mg QD Take [address] (EFFIENT) 3-05 by mouth [facility]ukes 10 mg Tab 20:29: daily. Medica l tablet 27 Serena levothyroxi Yes 25ug Take [address] ne 3-05 mcg by Lukes (SYNTHROID, 20:29: mouth Medic al LEVOTHROID) 27 Every Center 25 MCG morning on tablet an empty stomach. losartan Yes 100mg QD Take [address] (COZAAR) 3-05 mg by Lukes 100 MG 20:29: mouth Medical tablet 27 daily. Serena pentazocine 2015-04 Yes 1{tbl} Take 1 Un wilian -naloxone 0-27 tablet by itmichael o f (SHIREEN NX) 00:00: mouth [place] 50-0.5 mg 00 every 6 Medical tablet (six) Branch hours as needed for Pain. pentazocine 2015-04 Yes 1{tbl} Take 1 Un [...] mouth [place] tablet 53 daily. Medical Branch atorvastati 2015-04 Yes 20mg Take 20 mg Univers n (LIPITOR) 0-19 by mouth ity of 20 mg 13:56: at [place] tablet 53 bedtime. Medical Branch SERTraline 2015-04 Yes 100mg Take 100 Un wilian (ZOLOFT) 0-19 mg by ity of 100 mg 13:56: mouth [place] tablet 53 daily. Medical Branch metoprolol 2015-04 Yes 50mg Take 50 mg U nivers succinate 0-19 by mouth ity of XL (TOPROL 13:56: daily. [place] XL) 50 mg 53 Medical 24 hr Branch tablet levothyroxi 2015-04 Yes 25ug Take 25 Uni vers ne 0-19 mcg by ity of (SYNTHROID) 13:56: mouth [place] 25 mcg 53 every Medical tablet morning. Branch cholecalcif 2015-04 Yes 1000U Take 1,000 Univers robson, 0-19 Units by ity of vitamin D3, 13:56: mouth [place] (VITAMIN 53 daily. Medical D3) 1,000 Branch unit tablet RANOLAZINE 2015-04 Yes 500mg Take 500 Un wilian (RANEXA 0-19 mg by ity of ORAL) 13:56: mouth [place] 53 daily. Medical Branch traMADOL 2015-04 Yes 50mg Take 1 Univers (ULTRAM) 50 0-14 tablet by ity of mg tablet 00:00: mouth [place] 00 every 4 Medical (four) Branch hours as needed for Pain (scale 4-6) or Pain (scale 7-10). traMADOL 2015-04 Yes 50mg Take 1 Univers (ULTRAM) 50 0-14 tablet by ity of mg tablet 00:00: mouth 00 every 4 Medical (four) Branch hours as needed for Pain (scale 4-6) or Pain (scale 7-10). alendronate Yes TAKE 1 Univ ers (FOSAMAX) 9-22 TABLET ity of 70 mg 00:00: EVERY [place] tablet 00 SATURDAY Medical Branch alendronate Yes TAKE 1 Univ ers (FOSAMAX) 9-22 TABLET ity of 70 mg 00:00: EVERY tablet 00 SATURDAY [facility] Branch NIFEdipine NIFEdipine No NIFEdipine Cyclobenzap Cyclobenzap No Cyclobenza rine HCl rine HCl ramon HCl Prasugrel Prasugrel No Prasugrel HCl HCl HCl Atorvastati Atorvastati No Atorvastat n Calcium n Calcium in Calcium Aspirin Aspirin No Aspirin Alendronate Alendronate No Alendronat Sodium Sodium e Sodium Metoprolol Metoprolol No Metoprolol Succinate Succinate Succinate Losartan Losartan No Losartan Potassium Potassium Potassium Carvedilol Carvedilol No Carvedilol Alendronate Alendronate Yes Tucker not Common Sodium Sodium [place]illiard defined [facility] Metoprolol Metoprolol Yes Tucker not C ommon Succinate Succinate Hilliard defined [facility] Atorvastati Atorvastati Yes Tucker not Common n Calcium n Calcium [place]illiard defined [facility] Losartan Losartan Yes Tucker not Commo n Potassium Potassium [place]illiard defined [facility] Prasugrel Prasugrel Yes Tucker not Com mon HCl HCl Hilliard defined [facility] Aspirin Aspirin Yes Tucker not Common [place] defined [facility] Levothyroxi Levothyroxi Yes Tucker not Common ne Sodium ne Sodium [place]illiard defined [facility] Levothyroxi Levothyroxi No Levothyrox ne Sodium [...] hydrALAZINE No hydrALAZIN HCl HCl E HCl Immunizations Ordered Immunization Filled Immunization Date Status Commen ts Source Name Name Preet EPSTEINID-Jeri 2021-02-08 Completed Vaccine 00:00:00 Preet COVID-19 2021-02-08 Completed Vaccine 00:00:00 Preet COVID-19 2021-02-08 Completed Vaccine 00:00:00 Preet COVID-19 2020-05-06 Completed Vaccine 00:00:00 Preet COVID-19 2020-05-06 Completed Vaccine 00:00:00 Suea COVID-19 2020-05-06 Completed Vaccine 00:00:00 Influenza, seasonal, 2020-01-18 Completed inj 00:00:00 Influenza, seasonal, 2020-01-18 Completed inj 00:00:00 Influenza, seasonal, 2020-01-18 Completed inj 00:00:00 Suea COVID-19 Unknown Completed Vaccine Moderna COVID-19 Unknown Completed Vaccine Moderna COVID-19 Unknown Completed Vaccine Vital Signs Vital Name Observation Time Observation Value Comments Source Systolic blood 2022-06-19 11:00:00 134 mm[Hg] Univer sity of pressure [facility] Diastolic blood 2022-06-19 11:00:00 48 mm[Hg] Unive rsity of pressure [facility] Heart rate 2022-06-19 11:00:00 54 /[facility] Respiratory rate 2022-06-19 11:00:00 21 /min [facility] Oxygen saturation in 2022-06-19 11:00:00 96 /min [facility] blood by [facility] Pulse oximetry Branch Body temperature 2022-06-19 09:05:00 35.72 Diandra [facility] height 2021-12-14 08:00:00 67 [in_i] [facility] weight 2021-12-14 08:00:00 102 [lb_av] [facility] temperature 2021-12-14 08:00:00 97.2 [degF] [facility] bmi 2021-12-14 08:00:00 15.97 kg/m2 [facility] blood pressure 2021-12-14 08:00:00 110 mm[Hg] [facility] - systolic [facility] blood pressure 2021-12-14 08:00:00 68 mm[Hg] [facility] - diastolic [facility] BP Systolic 2022-01-16 14:05:00 150 mm[Hg] [...] 58.00 /min Respiratory Rate 2020-10-17 10:07:00 Procedures Procedure Date / Time Performed Performing Clinician [facility] e BASIC METABOLIC PANEL 2022-06-19 09:25:00 Mario Thompson [facility] (NA, K, CL, CO2, Medical Branch GLUCOSE, BUN, CREATININE, CA) CBC WITH DIFF 2022-06-19 09:25:00 Mario Thompson [facility] Plan of Care Planned Activity Planned Date [...] [facility] 00:[facility]:00 (1 of 1 [facility] [id number] PCV13) [code = PNEUMOCOCCAL 65+ YRS (1 of 1 - [id number] PCV13)] Future Scheduled 2000-10-14 PNEUMOCOCCAL 65+ YRS [facility] Test 00:00:00 ([address] [place] [address] [id number] PCV13) [code = PNEUMOCOCCAL 65+ YRS (1 of 1 - [id number] PCV13)] Future Scheduled 2000-10-14 PNEUMOCOCCAL 65+ Y[facility] Test 00:00:00 (1 of 1 [facility] [id number] PCV13) [code = PNEUMOCOCCAL 65+ YRS (1 of 1 - [id number] PCV13)] Future Scheduled 2000-10-14 PNEUMOCOCCAL 65+ [facility] Test 00:00:00 ([address] [place] [address] [id number] PCV13) [code = PNEUMOCOCCAL 65+ YRS (1 of 1 - [id number] PCV13)] Future Scheduled 2000-10-14 PNEUMOCOCCAL 65+ Y[facility] Test 00:00:00 (1 of 1 [facility] Center [id number] PCV13) [code = PNEUMOCOCCAL 65+ YRS (1 of 1 - [id number] PCV13)] Future Scheduled 2000-10-14 PNEUMOCOCCAL 65+ Y[facility] Test 00:00:00 (1 of 1 [facility] Center [id number] PCV13) [code = PNEUMOCOCCAL 65+ YRS (1 of 1 - [id number] PCV13)] Future Scheduled 2000-10-14 PNEUMOCOCCAL 65+ YRS [facility] Test 00:00:00 (1 of 1 [facility] NZIR92_Dhmrglk PCV13) [code = PNEUMOCOCCAL 65+ YRS (1 of 1 - BBJI44_Hyozhzw PCV13)] Future Scheduled 2000-10-14 PNEUMOCOCCAL 65+ YRS [facility] Test 00:00:00 (1 of 1 [facility] CKDJ70_Ocbojke PCV13) [code = PNEUMOCOCCAL 65+ YRS (1 of 1 - YKPT47_Egbwnfe PCV13)] Future Scheduled 2000-10-14 PNEUMOCOCCAL 65+ YRS [facility] Test 00:00:00 (1 of 1 [facility] BPAB38_Mzgykav PCV13) [code = PNEUMOCOCCAL 65+ YRS (1 of 1 - ODSX22_Umauqyj PCV13)] Future Scheduled 1985-10-14 SHINGLES VACCINES (1 [...] Goal Plan of Care Note [code = 37702-5] Goal Plan of Care Note [code = 90593-4] Goal Plan of Care Note [code = 17448-0] Goal Plan of Care Note [code = 05050-8] Goal Plan of Care Note [code = 17647-4] Goal Plan of Care Note [code = 88236-5] Goal Plan of Care Note [code = 49920-3] Goal Plan of Care Note [code = 62303-2] Goal Plan of Care Note [code = 57428-6] Goal Plan of Care Note [code = 35565-7] Goal Plan of Care Note [code = 21032-5] Goal Plan of Care Note [code = 07032-0] Goal Plan of Care Note [code = 91892-5] Goal Plan of Care Note [code = 54392-7] Goal Plan of Care Note [code = 20405-6] Goal Plan of Care Note [code = 53935-2] Goal Plan of Care Note [code = 22617-2] Goal Plan of Care Note [code = 19535-2] Goal Plan of Care Note [code = 55419-4] Goal Plan of Care Note [code = 93679-9] Goal Plan of Care Note [code = 22528-7] Goal Plan of Care Note [code = 13674-2] Goal Plan of Care Note [code = 06838-4] Goal Plan of Care Note [code = 18141-8] Goal Plan of Care Note [code = 85703-4] Goal Plan of Care Note [code = 35819-9] Goal Plan of Care Note [code = 11964-3] Goal Plan of Care Note [code = 23672-5] Goal Plan of Care Note [code = 20026-1] Goal Plan of Care Note [code = 07355-7] Goal Plan of Care Note [code = 12689-6] Goal Plan of Care Note [code = 03443-4] Goal Plan of Care Note [code = 36339-9] Goal Plan of Care Note [code = 46833-5] Goal Plan of Care Note [code = 01927-4] Goal Plan of Care Note [code = 60186-7] Goal Plan of Care Note [code = 29568-6] Goal Plan of Care Note [code = 45191-5] Goal Plan of Care Note [code = 39739-8] Goal Plan of Care Note [code = 44757-3] Goal Plan of Care Note [code = 10298-9] Goal Plan of Care Note [code = 52093-9] Goal Plan of Care Note [code = 68724-7] Goal Plan of Care Note [code = 39459-6] Goal Plan of Care Note [code = 61122-9] Goal Plan of Care Note [code = 07498-5] Goal Plan of Care Note [code = 95736-3] Goal Plan of Care Note [code = 46628-9] Goal Plan of Care Note [code = 40518-0] Goal Plan of Care Note [code = 07721-4] Goal Plan of Care Note [code = 56133-1] Goal Plan of Care Note [code = 94202-7] Goal Plan of Care Note [code = 24807-6] Goal Plan of Care Note [code = 60407-9] Goal Plan of Care Note [code = 02116-3] Goal Plan of Care Note [code = 47413-1] Goal Plan of Care Note [code = 88061-0] Goal Plan of Care Note [code = 08713-9] Goal Plan of Care Note [code = 96434-1] Goal Plan of Care Note [code = 33117-9] Goal Plan of Care Note [code = 24305-9] Goal Plan of Care Note [code = 93285-1] Goal Plan of Care Note [code = 77000-7] Goal Plan of Care Note [code = 17488-5] Goal Plan of Care Note [code = 20438-8] Goal Plan of Care Note [code = 54857-4] Goal Plan of Care Note [code = 69735-7] Goal Plan of Care Note [code = 45036-9] Goal Plan of Care Note [code = 18345-7] Goal Plan of Care Note [code = 82733-3] Goal Plan of Care Note [code = 51925-0] Goal Plan of Care Note [code = 46721-4] Goal Plan of Care Note [code = 10454-7] Goal Plan of Care Note [code = 74262-8] Goal Plan of Care Note [code = 84278-5] Goal Plan of Care Note [code = 47031-0] Goal Plan of Care Note [code = 33838-9] Goal Plan of Care Note [code = 24373-1] Goal Plan of Care Note [code = 42178-6] Goal Plan of Care Note [code = 13630-1] Goal Plan of Care Note [code = 67730-3] Goal Plan of Care Note [code = 62599-2] Goal Plan of Care Note [code = 31811-3] Goal Plan of Care Note [code = 16604-0] Goal Plan of Care Note [code = 23604-1] Goal Plan of Care Note [code = 56637-0] Goal Plan of Care Note [code = 70345-8] Goal Plan of Care Note [code = 14183-5] Goal Plan of Care Note [code = 67483-2] Goal Plan of Care Note [code = 73990-4] Encounters Start End Encounter Admission Attending Care Care Encounter Source Date/Time Date/Time Type Type Clinicians Facility Department ID 2021-12-14 Outpatient YINGNI [facility] [id number] Common 08:02:01 [facility] AURELIOHM - CH I I [facility] 2021-11-01 Outpatient [facility] [id number] Common 08:28:00 [facility] 2021-05-10 [facility] [id number] Common 14:37:15 [facility] 2022-06-19 2022-06-19 Emergency X [facility] ERT [id number] Univers 03:01:00 05:29:00 MARIO [facility] 2022-06-19 2022-06-19 Emergency [facility] [id number] Univers 03:01:00 05:29:00 Mario TRIPLETT 350.1.13.10 it luciana NARAYANAN 4.2.7.2.686 Dede gonzalez READLYN [id number] [facility] [address] 2022-06-06 2022-06-06 Outpatient SFA SFA [id number] Maynor 15:21:28 15:21:28 0222 F Will 2022-04-26 2022-04-26 Outpatient SFA SFA [id number] 023 [place] 09:24:32 09:24:32 0112 F Cullman 2022-04-23 2022-04-23 Outpatient SFA SFA [id number] 023 [place] 15:40:31 15:40:31 0109 F Cullman 2022-01-16 2022-01-16 Outpatient SFA SFA [id number] Maynor 13:58:33 13:58:33 1004 F Cullman 2022-01-16 2022-01-16 Outpatient [id number] e9 [id number] 00:00:00 00:00:00 Visit 4eec-4016 eec-4016-8 -803c-5f9 03c-5f94ae 4nt04n899 42x861 2021-12-15 2021-12-15 (TEL) STLC STLC [id number] mmon 00:00:00 00:00:00 [facility] 2021-12-14 2021-12-14 NON-BILLAB STLMLC STLMLC [id number] Common 00:00:00 00:00:00 LE VISIT Sp[facility] 2021-12-12 2021-12-12 Outpatient [id number]- [id number] a0 3s4p85-x 00:00:00 00:00:00 Visit y7q0-27m5 3q2-27f5-x -m22p-d01 99a-c59f17 e37b0o6qf b8a9bd 2021-10-30 2021-10-30 Outpatient [id number]- [id number] 8e j36f87-5 00:00:00 00:00:00 Visit 9t4c-1n7n k3o-5l7d-t -k747-918 [id number] 4136wj5fm 3fd9fb 2021-08-01 2021-08-01 Outpatient Ananda [facility] [id number] Univers 09:00:00 09:00:00 ROXY [id number] [facility] 2021-08-01 2021-08-01 Outpatient Ananda [facility] [id number] Univers 09:00:00 09:00:00 ROXY [facility] 2021-07-01 2021-07-01 Outpatient HANSA HUNG [id number] [place] 00:00:00 00:00:00 YUE Sebakariol david 2021-06-25 2021-06-25 Outpatient HANSA HUNG [id number] [place] 00:00:00 00:00:00 YUE Kwongol david 2020-10-03 2020-10-03 [facility] [id number] Univers 00:00:00 00:00:00 [facility] 350.1.13.10 it y of Surgical 4.2.7.2.686 Hi as Specialti [id number] Vt dical [address] 2020-04-29 2020-04-29 [facility] [id number]-20 Univers 15:00:00 15:00:00 YESIKA [id number] [facility] 2020-04-29 2020-04-29 [facility] [id number] Univers 15:00:00 15:00:00 YESIKA [facility] 2018-11-06 2018-11-06 Out[facility] [id number] Common 11:00:00 11:00:00 [facility] 2018-10-09 2018-10-09 Out[facility] [id number] Common 10:30:00 10:30:00 [facility] Results Test Description Test Time Test Comments Results Result Comments Source CULTURE, URINE 2022-01-19 SPECIMEN NUMBER: 12:40:01 [id number] CULTURE, URINE SPECIMEN NUMBER: [id number] SPECIMEN COMMENT: URINE SOURCE: URINE REPORT STATUS: [...] MCG/ML. UNLESS OTHERWISE INDICATED, ALL TESTING PERFORMED [facility] [employer] [address] [place] [address] AIRPORT MANAGER: KIESHA LEI M.D. CLIA NUMBER [id number] [facility] [place]. [id number] CULTURE, URINE 2022-01-19 00:00:00 Test Item Value Reference Range Interpretation Comme nts CULTURE, URINE (test code = 90148) SPECIMEN NUMBER: [id number] CULTURE, [id number] 00:00:00 Test Item Value Reference Range Interpretation Comments CULTURE, URINE (test SPECIMEN NUMBER: code = 24972) [id number] COMPREHENSIVE METABOLIC [id number] 00:00:00 Test Item Value Reference Range Interpretation Comments GLUCOSE (test code = 2217) 123 MG/DL BUN (test code = 2208) 81 MG/DL CREATININE (test code = 2214) 5.82 MG/DL eGFR AMER. (test code = 7 ML/MIN/1.73 91382) eGFR (2020 CKD-EPI) (test code 6 ML/MIN/1.73 = 68936) CALC BUN/CREAT (test code = 14 RATIO 2235) SODIUM (test code = 2231) 141 MEQ/L POTASSIUM (test code = 2228) 8.0 MEQ/L CHLORIDE (test code = 2215) 109 MEQ/L CARBON DIOXIDE (test code = 16 MEQ/L 2206) CALCIUM (test code = 2209) 8.3 MG/DL PROTEIN, TOTAL (test code = 6.1 G/DL 222) ALBUMIN (test code = 2201) 3.2 G/DL CALC GLOBULIN (test code = 2.9 G/DL 2240) CALC A/G RATIO (test code = 1.1 RATIO 2234) BILIRUBIN, TOTAL (test code = 0.4 MG/DL 2206) ALKALINE PHOSPHATASE (test code 76 U/L = 2204) AST (test code = 2218) 37 U/L ALT (test code = 2219) 12 U/L COMPREHENSIVE METABOLIC [id number] 00:00:00 Test Item Value Reference Range Interpretation Comments GLUCOSE (test code = 2217) 123 MG/DL BUN (test code = 2208) 81 MG/DL CREATININE (test code = 2214) 5.82 MG/DL eGFR AMER. (test code = 7 ML/MIN/1.73 37042) eGFR (2020 CKD-EPI) (test code 6 ML/MIN/1.73 = 89325) CALC BUN/CREAT (test code = 14 RATIO [...] code = 2219) 12 U/L COMPREHENSIVE METABOLIC [id number] 00:00:00 Test Item Value Reference Range Interpretation Comments GLUCOSE (test code = 2217) 123 MG/DL BUN (test code = 2208) 81 MG/DL CREATININE (test code = 2214) 5.82 MG/DL eGFR AMER. (test code = 7 ML/MIN/1.73 53854) eGFR (2020 CKD-EPI) (test code 6 ML/MIN/1.73 = 41005) CALC BUN/CREAT (test code = 14 RATIO [...] code = 2219) 12 U/L COMPREHENSIVE METABOLIC [id number] 00:00:00 Test Item Value Reference Range Interpretation Comments GLUCOSE (test code = 2217) 123 MG/DL BUN (test code = 2208) 81 MG/DL CREATININE (test code = 2214) 5.82 MG/DL eGFR AMER. (test code = 7 ML/MIN/1.73 34978) eGFR (2020 CKD-EPI) (test code 6 ML/MIN/1.73 = 74988) CALC BUN/CREAT (test code = 14 RATIO [...] code = 2219) 12 U/L COMPREHENSIVE METABOLIC [id number] 00:00:00 Test Item Value Reference Range Interpretation Comments GLUCOSE (test code = 2217) 123 MG/DL BUN (test code = 2208) 81 MG/DL CREATININE (test code = 2214) 5.82 MG/DL eGFR AMER. (test code = 7 ML/MIN/1.73 53826) eGFR (2020 CKD-EPI) (test code 6 ML/MIN/1.73 = 37772) CALC BUN/CREAT (test code = 14 RATIO [...] ALKALINE PHOSPHATASE (test code 76 U/L = 4) AST (test code = 2218) 37 U/L ALT (test code = 2219) 12 U/L COMPREHENSIVE METABOLIC [id number] 00:00:00 Test Item Value Reference Range Interpretation Comments GLUCOSE (test code = 2217) 123 MG/DL BUN (test code = 2208) 81 MG/DL CREATININE (test code = 2214) 5.82 MG/DL eGFR AMER. (test code = 7 ML/MIN/1.73 69844) eGFR (2020 CKD-EPI) (test code 6 ML/MIN/1.73 = 46840) CALC BUN/CREAT (test code = 14 RATIO [...] code = 1.33 NG/DL 2823) CBC W/AUTO [id number] 00:00:00 Test Item Value Reference Range Interpretation [...] code = 1015) 297 K/UL CBC W/AUTO [id number] 00:00:00 Test Item Value Reference Range Interpretation [...] code = 1015) 297 K/UL CBC W/AUTO [id number] 00:00:00 Test Item Value Reference Range Interpretation [...] code = 1015) 297 K/UL COMPREHENSIVE METABOLIC [id number] 00:00:00 Test Item Value Reference Range Interpretation Comments GLUCOSE (test code = 2217) 92 MG/DL BUN (test code = 2208) 29 MG/DL CREATININE (test code = 2214) 1.53 MG/DL eGFR AMER. (test code 36 ML/MIN/1.73 = 21966) eGFR NON- AMER. (test 31 ML/MIN/1.73 code = 91804) CALC BUN/CREAT (test code = 19 RATIO [...] code = 2219) 18 U/L COMPREHENSIVE METABOLIC [id number] 00:00:00 Test Item Value Reference Range Interpretation Comments GLUCOSE (test code = 2217) 92 MG/DL BUN (test code = 2208) 29 MG/DL CREATININE (test code = 2214) 1.53 MG/DL eGFR AMER. (test code 36 ML/MIN/1.73 = 57789) eGFR NON- AMER. (test 31 ML/MIN/1.73 code = 80445) CALC BUN/CREAT (test code = 19 RATIO 2235) SODIUM (test code = 2231) 142 MEQ/L POTASSIUM (test code = 2228) 5.2 MEQ/L CHLORIDE (test code = 2215) 109 MEQ/L CARBON DIOXIDE (test code = 20 MEQ/L 2205) CALCIUM (test code = 2209) 9.3 MG/DL PROTEIN, TOTAL (test code = 6.5 G/DL 2229) ALBUMIN (test code = 2201) 3.9 G/DL CALC GLOBULIN (test code = 2.6 G/DL 2240) CALC A/G RATIO (test code = 1.5 RATIO 2234) BILIRUBIN, TOTAL (test code = 0.3 MG/DL 2207) ALKALINE PHOSPHATASE (test 73 U/L code = 2204) AST (test code = 2218) 27 U/L ALT (test code = 2219) 18 U/L [id number] 00:00:00 Test Item Value Reference Range Interpretation Comments TSH, THIRD GENERATION (test code 3.330 UIU/ML = 2821) [id number] 00:00:00 Test Item Value Reference Range Interpretation Comments TSH, THIRD GENERATION (test code 3.330 UIU/ML = 2821) [id number] 00:00:00 Test Item Value Reference Range Interpretation [...] code = 1.33 NG/DL 2823) CBC W/AUTO [id number] 00:00:00 Test Item Value Reference Range Interpretation [...] code = 1015) 297 K/UL CBC W/AUTO [id number] 00:00:00 Test Item Value Reference Range Interpretation [...] code = 1015) 297 K/UL CBC W/AUTO [id number] 00:00:00 Test Item Value Reference Range Interpretation [...] code = 1015) 297 K/UL COMPREHENSIVE METABOLIC [id number] 00:00:00 Test Item Value Reference Range Interpretation Comments GLUCOSE (test code = 2217) 92 MG/DL BUN (test code = 2208) 29 MG/DL CREATININE (test code = 2214) 1.53 MG/DL eGFR AMER. (test code 36 ML/MIN/1.73 = 65704) eGFR NON- AMER. (test 31 ML/MIN/1.73 code = 30221) CALC BUN/CREAT (test code = 19 RATIO [...] code = 2219) 18 U/L COMPREHENSIVE METABOLIC [id number] 00:00:00 Test Item Value Reference Range Interpretation Comments GLUCOSE (test code = 2217) 92 MG/DL BUN (test code = 2208) 29 MG/DL CREATININE (test code = 2214) 1.53 MG/DL eGFR AMER. (test code 36 ML/MIN/1.73 = 89213) eGFR NON- AMER. (test 31 ML/MIN/1.73 code = 94784) CALC BUN/CREAT (test code = 19 RATIO [...] ALT (test code = 2219) 18 U/L [id number] 00:00:00 Test Item Value Reference Range Interpretation Comments TSH, THIRD GENERATION (test code 3.330 UIU/ML = 2821) [id number] 00:00:00 Test Item Value Reference Range Interpretation Comments TSH, THIRD GENERATION (test code 3.330 UIU/ML = 2821) [id number] 00:00:00 Test Item Value Reference Range Interpretation [...] code = 1.33 NG/DL 2823) CBC W/AUTO [id number] 00:00:00 Test Item Value Reference Range Interpretation [...] code = 1015) 297 K/UL CBC W/AUTO [id number] 00:00:00 Test Item Value Reference Range Interpretation [...] code = 1015) 297 K/UL CBC W/AUTO [id number] 00:00:00 Test Item Value Reference Range Interpretation [...] code = 1015) 297 K/UL COMPREHENSIVE METABOLIC [id number] 00:00:00 Test Item Value Reference Range Interpretation Comments GLUCOSE (test code = 2217) 92 MG/DL BUN (test code = 2208) 29 MG/DL CREATININE (test code = 2214) 1.53 MG/DL eGFR AMER. (test code 36 ML/MIN/1.73 = 24593) eGFR NON- AMER. (test 31 ML/MIN/1.73 code = 81749) CALC BUN/CREAT (test code = 19 RATIO [...] code = 2219) 18 U/L COMPREHENSIVE METABOLIC [id number] 00:00:00 Test Item Value Reference Range Interpretation Comments GLUCOSE (test code = 2217) 92 MG/DL BUN (test code = 2208) 29 MG/DL CREATININE (test code = 2214) 1.53 MG/DL eGFR AMER. (test code 36 ML/MIN/1.73 = 80008) eGFR NON- AMER. (test 31 ML/MIN/1.73 code = 42896) CALC BUN/CREAT (test code = 19 RATIO [...] ALT (test code = 2219) 18 U/L [id number] 00:00:00 Test Item Value Reference Range Interpretation Comments TSH, THIRD GENERATION (test code 3.330 UIU/ML = 2821) [id number] 00:00:00 Test Item Value Reference Range Interpretation Comments TSH, THIRD GENERATION (test code 3.330 UIU/ML = 2821) [id number] 00:00:00 Test Item Value Reference Range Interpretation Comments TSH, THIRD GENERATION (test code 3.330 UIU/ML = 2821) FREE T4 (THYROXINE)2020-02-02 00:00:00 Test Item Value Reference Range Interpretation Comments FREE T4 (THYROXINE) (test code = 1.33 NG/DL 2823) CALCIUM, [id number] 06:48:00 Test Item Value Reference Range Interpretation Comments CALCIUM IONIZED (BEAKER) (test 1.05 mmol/L 1.12-1.27 L code = 698) PH, BLOOD (BEAKER) (test code = 7.43 1810) [id number] 06:12:00 Test Item Value Reference Range Interpretation Comments PHOSPHORUS (BEAKER) (test code = 3.4 mg/dL 2.3-4.7 604) [id number] 06:12:00 Test Item Value Reference Range Interpretation Comments MAGNESIUM (BEAKER) (test code = 1.7 mg/dL 1.6-2.6 627) BASIC METABOLIC [id number] 06:12:00 Test Item Value Reference Range Interpretation [...] PATIEN TS. CBC W/PLT COUNT & AUTO [id number] 05:34:00 Test Item Value Reference Range Interpretation [...] code = 2801) MR, MRA, BRAIN, WITHOUT [id number] 10:59:00Reason for exam:->Ischemic Stroke EvaluationFINAL REPORT MRA Head CLINICAL HISTORY: Stroke TECHNIQUE: MRA of the head utilizing 3-D jsra-ww-ipgwwn technique, with 3-D reconstructions. COMPARISON: None IMPRESSION: Allowing for mild motion degradation, there is no evidence for a [place] proximal branch vessel occlusion. Distal branch vessel occlusions cannot be excluded. Aneurysms cannot be excluded. MRA Neck CLINICAL HISTORY: Stroke TECHNIQUE: MRA of the neck utilizing 2-D and 3-D rgtj-sm-jovkin technique, with 3-D reconstructions. COMPARISON: None IMPRESSION: [...] partially reconstituted by cervical muscular branches. Signed:Arianna Echevarriaort Verified Date/Time: 06/16/2018 10:59:34 Reading Location: [address] Neuro Reading Room MR, MRA, NECK, WITHOUT IV [id number] 10:59:00Reason for exam:->Ischemic Stroke EvaluationFINAL REPORT MRA Head CLINICAL HISTORY: Stroke TECHNIQUE: MRA of the head utilizing 3-D pavq-ky-scujiv technique, with 3-D reconstructions. COMPARISON: None IMPRESSION: Allowing for mild motion degradation, there is no evidence for a [place] proximal branch vessel occlusion. Distal branch vessel occlusions cannot be excluded. Aneurysms cannot be excluded. MRA Neck CLINICAL HISTORY: Stroke TECHNIQUE: MRA of the neck utilizing 2-D and 3-D arko-er-bwnasf technique, with 3-D reconstructions. COMPARISON: None IMPRESSION: [...] partially reconstituted by cervical muscular branches. Signed:Arianna Echevarria Verified Date/Time: 06/16/2018 10:59:34 Reading Location: [address] Neuro Reading Room MR, BRAIN, WITHOUT [id number] 10:52:00Reason for exam:->Ischemic Stroke EvaluationFINAL REPORT MRI [...] disease with generalized parenchymal volumeloss. Signed: Arianna Echevarria MDReport Verified Date/Time: 06/16/2018 10:52:22 Reading Location: [facility] Neuro Reading Room HEMOGLOBIN [id number] 09:43:00 Test Item Value Reference Range Interpretation Comments HEMOGLOBIN A1C (BEAKER) (test code = 5.9 % 4.3-6.1 368) VITAMIN [id number] 06:40:00 Test Item Value Reference Range Interpretation Comments VITAMIN B12 (BEAKER) (test code = 375 pg/mL 213-816 774) TSH/FREE T4 IF [id number] 05:45:00 Test Item Value Reference Range Interpretation Comments THYROID STIMULATING HORMONE 4.44 uIU/mL 0.35-4.94 (BEAKER) (test code = 772) LIPID [id number] 05:27:00 Test Item Value Reference Range Interpretation [...]
[2022-06-25] MEDS ORDERED: NA CHLORIDE 0.9% 1,000 ML ONE (07:14)
[2022-06-25 07:46] LABS: Absolute Lymphocytes (CBC) 0.5 K/uL (0.7-4.9); Hematocrit 36.1 % (36.0-45.0); Lymphocytes % 6.6 % (15.3-44.8); MPV 7.6 fL (7.6-11.3); RBC Red Blood Cell Count 3.84 M/uL (3.86-4.86)
[2022-06-25 08:01] LABS: Protime INR 0.99
[2022-06-25 08:15] LABS: ALT/SGPT 26 U/L (13-56); AST/SGOT 28 U/L (15-37); Albumin 2.7 g/dL (3.4-5.0); Alkaline Phosphatase 125 U/L (45-117); BUN Blood Urea Nitrogen 42 mg/dL (7-18); Bicarbonate 24 mmol/L (21-32); Bilirubin Direct 0.7 mg/dL (0-0.2); Bilirubin Total 1.1 mg/dL (0.2-1.0); Glomerular Filtration Rate 8 ml/min (=/>90); Glucose Level 111 mg/dL (74-106); Lipase 30 U/L (13-75); Magnesium 2.1 mg/dL (1.6-2.4); Potassium 3.7 mmol/L (3.5-5.1); Protein, Total 6.5 g/dL (6.4-8.2); Sodium Level 135 mmol/L (136-145); Troponin High Sensitivity 54.2 pg/mL (<58.9)
[2022-06-25 08:16] LABS: SARS-COV-2 RT PCR NEGATIVE (NEGATIVE)
[2022-06-25 08:24] LABS: NT PRO-BNP > 175000 pg/mL (<450)
[2022-06-25] MEDS ORDERED: ONDANSETRON 4 MG/2 ML VIAL IV PRN (08:27)
[2022-06-25] MEDS ORDERED: ACETAMINOPHEN 325 MG TABLET PO PRN (08:27)
--- NOTE | 2022-06-25 08:27 | RAD REPORT ---
EXAM DESCRIPTION: CT - Head Brain Wo Cont - 06/25/2022 7:58 am CLINICAL HISTORY: Dizziness COMPARISON: June 15, 2022 TECHNIQUE: Computed axial tomography of the head was obtained. IV contrast was not requested. All CT scans are performed using dose optimization technique as appropriate and may include automated exposure control or mA/KV adjustment according to patient size. FINDINGS: An intracranial bleed is not seen The ventricles are normal in caliber No extra-axial fluid collection is noted. 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 Cerebral atrophy. Mild to moderate low-density areas within periventricular, deep and subcortical white matter likely r epresent ischemic changes secondary to small vessel disease. Fluid within the sinuses/ mastoids is not seen. IMPRESSION: No acute intracranial abnormality is seen If patient's symptoms persist MRI of the brain would be recommended
[2022-06-25] MEDS ORDERED: FAMOTIDINE 20 MG/2 ML VIAL IV ONE (08:48)
--- NOTE | 2022-06-25 08:57 | RAD REPORT ---
EXAM DESCRIPTION: Giat Single View06/25/2022 7:40 am CLINICAL HISTORY: Cough COMPARISON: 2021 FINDINGS: Small left pleural effusion with basilar atelectasis Lungs appear clear of acute infiltrate The heart is mildly enlarged. Central venous catheter in place
[2022-06-25] MEDS ORDERED: HEPARIN 5000 UNIT/ML 1 ML VIAL SQ SCH (09:00)
[2022-06-25 09:01] VITALS: BMI 18.3
[2022-06-25] MEDS: ASPIRIN 81 MG CHEWABLE TABLET PO SCH (10:31)
--- NOTE | 2022-06-25 10:43 | P.HP ---
Certification for Inpatient Patient admitted to: Observation With expected LOS: <2 Midnights Patient will require the following post-hospital care: None Practitioner: I am a practitioner with admitting privileges, knowledge of patient current condition, hospital course, and medical plan of care. Services: Services provided to patient in accordance with Admission requirements found in Title 42 Section 412.3 of the Code of Federal Regulations Patient History Date of Service: 06/25/22 Reason for admission: Generalized weakness, near syncopal History of Present Illness: Patient is an 86-year-old female with a past medical history significant for ESRD, hyperlipidemia, depression, CVA, hypertension, hypothyroidism, CAD who presents with complaint of generalized weakness and near syncope. Patient reported that he went to use the bathroom today and was unable to get out of the bathroom due to generalized weakness. Patient reported a near syncopal episode. Patient also reported that she has been having dizziness for quite some time. Patient is a poor historian and unable to provide accurate history. Patient reported associated signs and symptoms of headache. Patient denies any other signs and symptoms. Symptoms are aggravated or relieved by nothing. Patient decided to present to the hospital for medical evaluation. Of note, Patient is on MWF dialysis schedule. Allergies codeine Allergy (Severe, Verified 10/31/21 23:06) Nausea/Vomiting Home Medications: Cholecalciferol (Vitamin D3) [Vitamin D 5,000 IU Cap*] 1 tab PO DAILY 11/02/21 Mirtazapine [Remeron*] 15 mg PO BEDTIME 11/02/21 Prasugrel HCl 10 mg PO DAILY 11/02/21 Sevelamer Carbonate [Renvela*] 800 mg PO TIDWM 11/02/21 calcitrioL [Rocaltrol] 2 tab PO DAILY 11/02/21 carvediloL [Coreg*] 12.5 mg PO BID 11/02/21 Apixaban [Eliquis *] 2.5 mg PO BID 11/08/21 Calcium Carbonate/Vitamin D3 [Oscal 500 + Vit D 200 Iu Tab*] 1 tab PO BIDWM tab 11/08/21 Docusate [Colace Cap*] 100 mg PO BID cap 11/08/21 Ensure High Protein 237 ml PO DAILY can 11/08/21 Epoetin [Retacrit] 10,000 unit SQ M,W,F vial 11/08/21 Heparin [Heparin 1,000 units/mL *] 4,000 unit IV EVERY HD PRN vial 11/08/21 Nifedipine Xl [Procardia XL*] 60 mg PO DAILY tab 11/17/21 Cyclobenzaprine [Flexeril*] 5 mg PO BIDP PRN tab 11/21/21 Epoetin [Retacrit] 10,000 unit SQ M,W,F vial 11/21/21 Heparin [Heparin 1,000 units/mL *] 4,000 unit IV EVERY HD PRN vial 11/21/21 Hydralazine HCl 25 mg PO TID #90 11/21/21 Hydrocodone 5/APAP 325 [[place] 5/325*] 1 tab PO Q8H PRN #15 tab 11/21/21 Losartan Potassium [Cozaar*] 50 mg PO BID 11/21/21 carvediloL [Coreg*] 12.5 mg PO BID tab 11/21/21 - Past Medical/Surgical History Has patient received pneumonia vaccine in the past: Yes Diabetic: No -: Hypertension -: Hyperlipidemia -: History CVA -: Carotid arterial disease with prior stent -: CAD -: Hypothyroidism -: Chronic diastolic CHF -: Depression with anxiety -: Chronic pain -: ESRD on HD followed by Dr. Pablo -: Carotid stent -: Right partial hip replacement -: hysterectomy Psychosocial/ Personal History: Patient is a . She lives by herself. - Family History Father -: Stroke Mother -: Hypertension, Diabetes - Social History Smoking Status: Never smoker Alcohol use: No CD- Drugs: No Caffeine use: Yes Place of Residence: Home Review of Systems General: Weakness Eyes: Unremarkable ENT: Unremarkable Respiratory: Unremarkable Cardiovascular: Unremarkable Gastrointestinal: Unremarkable Genitourinary: Unremarkable Musculoskeletal: Unremarkable Integumentary: Unremarkable Neurological: Other (Dizziness) Lymphatics: Unremarkable Physical Examination - Vital Signs Temperature: 97.9 F Blood Pressure: 150/49 Pulse: 65 Respirations: 20 - Physical Exam General: Alert, In no apparent distress, Oriented x3, Cooperative HEENT: Atraumatic, PERRLA, Mucous membr. moist/pink, EOMI, Sclerae nonicteric Neck: Supple, 2+ carotid pulse no bruit, No LAD, Without JVD or thyroid abnormality Respiratory: Clear to auscultation bilaterally, Normal air movement Cardiovascular: Regular rate/rhythm, Normal S1 S2 Capillary refill: <2 Seconds Gastrointestinal: Normal bowel sounds, Soft and benign, Non-distended, No tenderness Musculoskeletal: No clubbing, No swelling, No tenderness Integumentary: No rashes Neurological: Normal speech, Normal tone, Normal affect Lymphatics: No axilla or inguinal lymphadenopathy - Studies Laboratory Data (last 24 hrs) 06/25/22 07:25: PT 10.9, INR 0.99 06/25/22 07:25: WBC 7.10, Hgb 11.7 L, Hct 36.1, Plt Count 243 06/25/22 07:25: Sodium 135 L, Potassium 3.7, BUN 42 H, Creatinine 4.84 H, Glucose 111 H, Magnesium 2.1, Total Bilirubin 1.1 H, AST 28, ALT 26, Alkaline Phosphatase 125 H, Lipase 30 Assessment and Plan - Plan --Near syncope. Echocardiogram pending to assess cardiac structures and function. Carotid Doppler to rule out any carotid artery stenosis. We will get some orthostatic vital signs. Fall precautions. Continue supportive care. --Volume overload. Patient on MWF schedule. Nephrology consulted. Patient scheduled for dialysis today. Further management per international sourcing manager. --ESRD. Further management per international sourcing manager. --Acute on chronic diastolic CHF exacerbation. Continue dialysis per international sourcing manager recommendation. Daily weight and strict I/O. --Hyperlipidemia. Continue statin. --Depression\anxiety disorder. Continue home medication. --History of CVA\CAD with stents. Continue Asprin and Eliquis --Hypothyroidism. Continue home medication. --Hypertension. Poorly controlled. Continue home medications and hydralazine as needed. --DVT prophylaxis with Eliquis. Discharge Plan: Home Plan to discharge in: 48 Hours - Advance Directives Does patient have a Living Will: No Does patient have a Durable POA for Healthcare: No - Code Status/Comfort Care Code Status Assessed: Yes Physician Review: Patient Assessed, Agree with Above Assessment and Plan Critical Care: No
[2022-06-25] MEDS ORDERED: MANNITOL 25% 12.5 GM/50 ML VIAL IV PRN (11:44)
[2022-06-25] MEDS ORDERED: NA CHLORIDE 0.9% 1,000 ML IV PRN (11:44)
[2022-06-25] MEDS ORDERED: ALBUMIN HUMAN 25% 50 ML IV SCH (12:00)
[2022-06-25] MEDS ORDERED: HYDRALAZINE HCL 20 MG/ML VIAL IV PRN (12:03)
--- NOTE | 2022-06-25 15:19 | RAD REPORT ---
EXAM DESCRIPTION: US - CP - 06/25/2022 2:26 pm CLINICAL HISTORY: Near Syncope COMPARISON: Head C Spine Mpr Wo Con dated 06/15/2022; Head Brain Wo Cont dated 06/25/2022 TECHNIQUE: Real-time sonographic grayscale, color duplex, and spectral wave Doppler evaluation of heath th carotid systems was performed. FINDINGS: Low resistance waveforms are noted in both external carotid arteries, of uncertain signifi cance. The common carotid arteries and internal carotid arteries show normal low resistance waveforms . Moderate bilateral common carotid artery calcified irregular plaque. Right carotid bulb demonstrates irregular calcified echogenic plaque. Patent left ICA stent at the level of the bifurcation, with mil d luminal stenosis of the mid to distal aspect of the stent. Peak systolic velocity 192 cm/sec on the right, and 125 cm/ sec on the left. ICA/CCA peak systolic ratio is 2.7 on the right and 2.6 on the l eft. Antegrade flow seen in both vertebral arteries. IMPRESSION: Moderate bilateral CCA and moderate to advanced right carotid bulb atherosclerotic plaqu e formation. Patent left carotid stent, with mild luminal stenosis of the mid to distal aspect of the stent. 50-69% stenosis of the right ICA. Patent vertebral arteries with antegrade flow. Evaluation of carotid artery stenosis, if any, is reported based on consensus recommendations of the Society of Radiologists in Ultrasound (Bulmaro et al., Radiology, 2003)
[2022-06-25 18:45] LABS: Magnesium 1.9 mg/dL (1.6-2.4); Phosphorus 4.7 mg/dL (2.5-4.9)
[2022-06-25 18:46] LABS: NT PRO-BNP > 175000 pg/mL (<450)
[2022-06-25 19:31] LABS: Hepatitis B surface AG Interp. Nonreactive (Nonreactive)
[2022-06-25 19:32] LABS: Hepatitis B Surface Ab - Quant < 3.10 mIU/mL (<8.0)
--- NOTE | 2022-06-25 21:56 | P.CNS ---
Date of Consult: 06/25/22 Reason for Consult: ESRD Requesting Physician: Aurelio Hendrix Chief Complaint: Generalized weakness, near syncopal History of Present Illness: Patient is an 86-year-old female with a past medical history significant for ESRD, hyperlipidemia, depression, CVA, hypertension, hypothyroidism, CAD who presents with complaint of generalized weakness and near syncope. Patient reported that he went to use the bathroom today and was unable to get out of the bathroom due to generalized weakness. Patient reported a near syncopal episode. Patient also reported that she has been having dizziness for quite some time. Patient is a poor historian and unable to provide accurate history. Patient reported associated signs and symptoms of headache. Patient denies any other signs and symptoms. Symptoms are aggravated or relieved by nothing. Patient decided to present to the hospital for medical evaluation. Of note, Patient is on MWF dialysis schedule. Allergies codeine Allergy (Severe, Verified 10/31/21 23:06) Nausea/Vomiting Home medications list reviewed: Yes Home Medications: Cholecalciferol (Vitamin D3) [Vitamin D 5,000 IU Cap*] 1 tab PO DAILY 11/02/21 Mirtazapine [Remeron*] 15 mg PO BEDTIME 11/02/21 Prasugrel HCl 10 mg PO DAILY 11/02/21 Sevelamer Carbonate [Renvela*] 800 mg PO TIDWM 11/02/21 calcitrioL [Rocaltrol] 2 tab PO DAILY 11/02/21 carvediloL [Coreg*] 12.5 mg PO BID 11/02/21 Apixaban [Eliquis *] 2.5 mg PO BID 11/08/21 Calcium Carbonate/Vitamin D3 [Oscal 500 + Vit D 200 Iu Tab*] 1 tab PO BIDWM tab 11/08/21 Docusate [Colace Cap*] 100 mg PO BID cap 11/08/21 Ensure High Protein 237 ml PO DAILY can 11/08/21 Epoetin [Retacrit] 10,000 unit SQ M,W,F vial 11/08/21 Heparin [Heparin 1,000 units/mL *] 4,000 unit IV EVERY HD PRN vial 11/08/21 Nifedipine Xl [Procardia XL*] 60 mg PO DAILY tab 11/17/21 Cyclobenzaprine [Flexeril*] 5 mg PO BIDP PRN tab 11/21/21 Epoetin [Retacrit] 10,000 unit SQ M,W,F vial 11/21/21 Heparin [Heparin 1,000 units/mL *] 4,000 unit IV EVERY HD PRN vial 11/21/21 Hydralazine HCl 25 mg PO TID #90 11/21/21 Hydrocodone 5/APAP 325 [[place] 5/325*] 1 tab PO Q8H PRN #15 tab 11/21/21 Losartan Potassium [Cozaar*] 50 mg PO BID 11/21/21 carvediloL [Coreg*] 12.5 mg PO BID tab 11/21/21 - Past Medical/Surgical History Diabetic: No -: Hypertension -: Hyperlipidemia -: History CVA -: Carotid arterial disease with prior stent -: CAD -: Hypothyroidism -: Chronic diastolic CHF -: Depression with anxiety -: Chronic pain -: ESRD on HD followed by Dr. Pablo -: Carotid stent -: Right partial hip replacement -: hysterectomy Psychosocial/ Personal History: Patient is a . She lives by herself. - Family History Father Medical History: Stroke Mother Medical History: Hypertension, Diabetes - Social History Smoking Status: Never smoker Alcohol use: No CD- Drugs: No Caffeine use: Yes Place of Residence: Home Review of Systems 10-point ROS is otherwise unremarkable General: Weakness, Malaise Respiratory: SOB with Excertion Physical Examination Temp Pulse Resp BP Pulse Ox 98.2 F 71 14 130/51 L 99 06/25/22 16:00 06/25/22 16:00 06/25/22 16:00 06/25/22 16:00 06/25/22 16:00 General: In no apparent distress, Oriented x3, Cooperative HEENT: Atraumatic Neck: Supple Respiratory: Clear to auscultation bilaterally Cardiovascular: No edema, Regular rate/rhythm Gastrointestinal: Soft and benign, Non-distended Musculoskeletal: No clubbing, No contractures Integumentary: No rashes, No cyanosis Neurological: Normal speech Laboratory Data (last 24 hrs) 06/25/22 07:25: PT 10.9, INR 0.99 06/25/22 07:25: WBC 7.10, Hgb 11.7 L, Hct 36.1, Plt Count 243 06/25/22 07:25: Sodium 135 L, Potassium 3.7, BUN 42 H, Creatinine 4.84 H, Gluco se 111 H, Magnesium 2.1, Total Bilirubin 1.1 H, AST 28, ALT 26, Alkaline Phosphatase 125 H, Lipase 30 Imagings Data: [facility] EXAM DESCRIPTION: US - CP - 06/25/2022 2:26 pm CLINICAL HISTORY: Near Syncope COMPARISON: Head C Spine Mpr Wo Con dated 06/15/2022; Head Brain Wo Cont dated 06/25/2022 TECHNIQUE: Real-time sonographic grayscale, color duplex, and spectral wave Doppler evaluation of both carotid systems was performed. FINDINGS: Low resistance waveforms are noted in both external carotid arteries, of uncertain significance. The common carotid arteries and internal carotid arteries show normal low resistance waveforms. Moderate bilateral common carotid artery calcified irregular plaque. Right carotid bulb demonstrates irregular calcified echogenic plaque. Patent left ICA stent at the level of the bifurcation, with mild luminal stenosis of the mid to distal aspect of the stent. Peak systolic velocity 192 cm/sec on the right, and 125 cm/ sec on the left. ICA/CCA peak systolic ratio is 2.7 on the right and 2.6 on the left. Antegrade flow seen in both vertebral arteries. IMPRESSION: Moderate bilateral CCA and moderate to advanced right carotid bulb atherosclerotic plaque formation. Patent left carotid stent, with mild luminal stenosis of the mid to distal aspect of the stent. 50-69% stenosis of the right ICA. Patent vertebral arteries with antegrade flow. [facility] EXAM DESCRIPTION: RADChest Single View06/25/2022 7:40 am CLINICAL HISTORY: Cough COMPARISON: 2021 FINDINGS: Small left pleural effusion with basilar atelectasis Lungs appear clear of acute infiltrate The heart is mildly enlarged. Central venous catheter in place Conclusions/Impression: ESRD on HD -Acute HD today Hyponatremia -Acute HD HTN with CKD/ CHF -Restart Losartan BID Diastolic CHF, chronic -Low sodium diet -Daily weight -Acute HD with UF Moderate malnutrition with decreased functional ability -Start Nepro Anemia in CKD -Retacrit prn CKD MBD -Start Ergo Thank you kindly for the consultation
[2022-06-25] MEDS: APIXABAN 2.5 MG TABLET PO SCH (22:04)
[2022-06-25] MEDS ORDERED: HYDROCODONE/APAP 5/325 MG TAB PO ONE (22:12)
[2022-06-25] MEDS ORDERED: DRISDOL (VITAMIN D=ERGOCALCIFEROL) 50000 UNIT CAP PO SCH (23:00)
[2022-06-26 04:15] LABS: Absolute Lymphocytes (CBC) 0.6 K/uL (0.7-4.9); Hematocrit 30.4 % (36.0-45.0); Lymphocytes % 8.3 % (15.3-44.8); MCV 92.8 fL (80-100); MPV 7.3 fL (7.6-11.3); RBC Red Blood Cell Count 3.28 M/uL (3.86-4.86)
[2022-06-26 04:30] LABS: Potassium 3.7 mmol/L (3.5-5.1)
[2022-06-26] MEDS: HYDROCODONE/APAP 5/325 MG TAB PO PRN ×2 (05:44→20:22)
[2022-06-26] MEDS ORDERED: LEVOTHYROXINE SOD 0.025 MG TAB PO SCH ×2 (06:30→16:38)
--- NOTE | 2022-06-26 06:40 | ECHO ---
HEIGHT: 5 ft 7 in WEIGHT: 94 lb 0.082 oz DATE OF STUDY: 06/25/[address]: Aj Basilio MD 2-DIMENSIONAL: YES M.MODE: YES DOPPLER: YES COLOR FLOW: YES TDS: PORTABLE: YES DEFINITY: BUBBLE STUDY: DIAGNOSIS: SYNCOPE CARDIAC HISTORY: CATHERIZATION: SURGERY: PROSTHETIC VALVE: PACEMAKER: MEASUREMENTS (cm) DIASTOLIC (NORMALS) SYSTOLIC (NORMALS) IVSd 1.2 (0.6-1.2) LA Diam 3.3 (1.9-4.0) LVEF 55-60% LVIDd 4.0 (3.5-5.7) LVIDs 3.0 (2.0-3.5) %FS 26% LVPWd 1.2 (0.6-1.2) Ao Diam 2.7 (2.0-3.7) 2 DIMENSIONAL ASSESSMENT: RIGHT ATRIUM: NORMAL LEFT ATRIUM: NORMAL RIGHT VENTRICLE: NORMAL LEFT VENTRICLE: NORMAL TRICUSPID VALVE: MILD TRICUSPID REGURGITATION MITRAL VALVE: MODERATE MITRAL REGURGITATION PULMONIC VALVE: NORMAL AORTIC VALVE: MILD AORTIC INSUFFICIENCY PERICARDIAL EFFUSION: NONE AORTIC ROOT: NORMAL LEFT VENTRICULAR WALL MOTION: NORMAL DOPPLER/COLOR FLOW: SEE BELOW COMMENTS: 1. NORMAL LEFT VENTRICULAR EJECTION FRACTION 55-60% 2. NORMAL WALL MOTION 3. MODERATE MITRAL REGURGITATION 4. MILD TRICUSPID REGURGITATION/ AORTIC INSUFFICIENCY 5. GRADE I DIASTOLIC DYSFUNCTION TECHNOLOGIST: WEN PORTILLO
[2022-06-26] MEDS ORDERED: DRISDOL (VITAMIN D=ERGOCALCIFEROL) 50000 UNIT CAP PO SCH (09:00)
--- NOTE | 2022-06-26 09:14 | RAD REPORT ---
EXAM DESCRIPTION: RAD - Femur Right - 06/26/2022 8:35 am CLINICAL HISTORY: rule out fracture Pain and swelling COMPARISON: Hip Right 2 View dated 06/15/2022 FINDINGS: Diffuse osteopenia is noted. Right total hip arthroplasty noted. Heavy vascular calcificat ion. Cortical irregularity of the inferior pubic ramus on the right is noted which probably represent s fracture.
[2022-06-26] MEDS: APIXABAN 2.5 MG TABLET PO SCH (09:38)
[2022-06-26] MEDS: LOSARTAN POTASSIUM 50 MG TABLET PO SCH ×3 (09:38→22:12)
[2022-06-26] MEDS: ASPIRIN 81 MG CHEWABLE TABLET PO SCH (09:38)
--- NOTE | 2022-06-26 10:31 | P.PN ---
Subjective Date of Service: 06/26/22 Chief Complaint: Generalized weakness, near syncopal No acute events overnight. She reports generalized weakness. She denies any chest pain, palpitations, headaches, shortness of breath, or any other symptoms. Review of Systems 10-point ROS is otherwise unremarkable General: Weakness (generalized) Physical Examination - Vital Signs Temperature: 98.7 F Blood Pressure: 159/65 Pulse: 77 Respirations: 16 Pulse Ox (%): 96 - Physical Exam General: Alert, In no apparent distress, Oriented x3 HEENT: Atraumatic, Mucous membr. moist/pink, EOMI, Sclerae nonicteric Neck: JVD not distended Respiratory: Clear to auscultation bilaterally, Normal air movement Cardiovascular: No edema, Regular rate/rhythm, Normal S1 S2, No gallops, No rubs, No murmurs Gastrointestinal: Normal bowel sounds, Soft and benign, Non-distended, No tenderness, No rebound, No guarding Musculoskeletal: No clubbing Integumentary: No rashes, Other (bruising down lateral right upper leg) Other Physical/Emotional Findings: Examined alongside charge nurse, Ellen Dubose perl developer And Plan - Plan # Hypervolemia secondary to Acute on Chronic Diastolic Congestive Heart Failure on End-Stage Renal Disease on MWF iHD - Consult Nephrology and spoke with Dr. Porter - recommendations appreciated - Transthoracic echocardiogram = "1. normal left ventricular ejection fraction 55-60% 2. normal wall motion 3. moderate mitral regurgitation 4. mild tricuspid regurgitation/ aortic insufficiency 5. grade i diastolic dysfunction" - Volume removal via hemodialysis - Continue home sevelamer - Daily weights - Strict I/O - Cardiac diet, 1.5 L fluid restriction, 2 g Na restriction # Traumatic Ground-Level Fall complicated by Superior/Inferior Pubic Rami and Sacral Ala Fracture # Generalized Weakness with Presyncope # History of Partial Right Hip Replacement - Evaluation thus far: - CT head = "no acute intracranial abnormality is seen." - Pelvic x-ray = "diffuse osteopenia is noted. Right total hip arthroplasty noted. Heavy vascular calcification. Cortical irregularity of the inferior pubic ramus on the right is noted which probably represents fracture." - CT right lower extremity = "significant osteopenia limits bone detail. Right total hip arthroplasty noted. The right femur hand right femoral hardware appears intact." - CT pelvis = "fracture of the superior and inferior pubic rami on the right noted with little displacement. Suspected fracture right sacral ala medially. The bones are quite osteopenic." - Management plan: - Orthopedic Surgery not available at our facility - Spoke with Dr. Membreno ([facility] Orthopedic Surgery) and reviewed CT reports with him - He stated that fractures are not surgical - He recommended partial weight-bering with walker + assistance - Recommended PT/OT -> SNF with outpatient follow-up - PT/OT consulted - VTE prophylaxis with SQ heparin # Hypothyroidism - TSH 7.910, Free T4 0.46 - Increased home levothyroxine from 25 mcg to 50 mcg # Coronary Artery Disease # History of Cerebrovascular Accident # Moderate Right Carotid Artery Stenosis # Left Carotid Artery Stenosis s/p Stenting # Hypertension # Hyperlipidemia - Carotid artery ultrasound = "moderate bilateral CCA and moderate to advanced right carotid bulb atherosclerotic plaque formation. Patent left carotid stent, with mild luminal stenosis of the mid to distal aspect of the stent. 50-69% stenosis of the right ICA. Patent vertebral arteries with antegrade flow." - Continue aspirin, carvedilol, atorvastatin, losartan, and prasugrel # Depression with Anxiety - Continue home sertraline Aurelio Hendrix M.D.
--- NOTE | 2022-06-26 12:42 | EKG ---
Test Date: 2022-06-25 Test Time: 06:18:50 [employer] Pan Tank Operator: EDWIGE MEASUREMENT RESULTS: Intervals: Rate: 65 IL: 150 QRSD: 110 QT: 454 QTc: 472 [place]: P: 80 IL: 150 QRS: -15 T: -60 INTERPRETIVE STATEMENTS: Normal sinus rhythm Septal infarct, age undetermined ST & T wave abnormality, consider inferolateral ischemia Abnormal ECG Compared to ECG 03/28/2022 08:36:59 Atrial premature complex(es) no longer present Left-axis deviation no longer present Myocardial infarct finding still present ST (T wave) deviation still present Possible ischemia still present Electronically Signed On 06-26-22 12:39:47 CDT by Andi Garces
--- NOTE | 2022-06-26 12:58 | RAD REPORT ---
EXAM DESCRIPTION: CT - Femur Right Wo Con - 06/26/2022 12:11 pm CLINICAL HISTORY: fracture Right-sided pain and swelling. COMPARISON: Femur Right dated 06/26/2022; Pelvis Wo Cont dated 06/26/2022 FINDINGS: Hardware is in place right hip compatible with total hip arthroplasty. This causes signifi cant streak artifact limiting the study. Diffuse osteopenia. There is no evidence of hardware complication. The remainder of the femur appears within normal limits. Moderate atherosclerosis. IMPRESSION: Significant osteopenia limits bone detail. Right total hip arthroplasty noted. The right femur hand right femoral hardware appears intact. All CT scans are performed using dose optimization technique as appropriate and may include automated exposure control or mA/KV adjustment according to patient size.
--- NOTE | 2022-06-26 12:59 | RAD REPORT ---
EXAM DESCRIPTION: CT - Pelvis Wo Cont - 06/26/2022 12:11 pm CLINICAL HISTORY: FX Pain and swelling right-sided. COMPARISON: No comparisons TECHNIQUE: All CT scans are performed using dose optimization technique as appropriate and may inclu de automated exposure control or mA/KV adjustment according to patient size. FINDINGS: Significant osteopenia is seen. There is advanced spondylosis and scoliosis of the lumbar spine. Severe left hip arthritic changes. . Cortical irregularity is seen involving the right sacral ala medially suggestive of a fracture. In ad dition, there is likely a fracture of the superior pubic ramus on the right anteriorly and the inferi or pubic ramus on the right mid aspect. No left-sided pelvic fracture seen. IMPRESSION: Fracture of the superior and inferior pubic rami on the right noted with little displace ment. Suspected fracture right sacral ala medially. The bones are quite osteopenic.
[2022-06-26] MEDS ORDERED: LEVOTHYROXINE SOD 0.025 MG TAB PO ONE (16:30)
[2022-06-26] MEDS: SEVELAMER CARBONATE 800 MG TABLET PO SCH (18:41)
[2022-06-26] MEDS: SERTRALINE HCL 100 MG TAB PO SCH (18:41)
[2022-06-26] MEDS: ATORVASTATIN 20 MG TAB PO SCH (20:22)
[2022-06-26] MEDS: carvediloL 12.5 MG TAB PO SCH (20:23)
[2022-06-26] MEDS: HEPARIN 5000 UNIT/ML 1 ML VIAL SQ SCH (20:24)
--- NOTE | 2022-06-26 20:54 | P.PN ---
Date of Service: 06/26/22 Vital Signs Temp Pulse Resp BP Pulse Ox 98.7 F 76 16 167/69 H 96 06/26/22 16:38 06/26/22 20:23 06/26/22 20:22 06/26/22 20:23 06/26/22 20:22 Medications Acetaminophen (Acetaminophen 325 Mg Tablet) 650 mg PO Q6H PRN PRN Reason: TEMP > 100' F Hydrocodone Bitart/Acetaminophen (Hydrocodone/Apap 5/325 Mg Tab) 1 tab PO Q8H PRN PRN Reason: Pain scale 5-7 (Moderate) Last Admin: 06/26/22 20:22 Dose: 1 tab Aspirin (Aspirin 81 Mg Chewable Tablet) 81 mg PO DAILY [facility] Last Admin: 06/26/22 09:38 Dose: 81 mg Atorvastatin Calcium (Atorvastatin 20 Mg Tab) 20 mg PO BEDTIME [facility] Last Admin: 06/26/22 20:22 Dose: 20 mg Carvedilol (Carvedilol 12.5 Mg Tab) 12.5 mg PO BID [facility] Last Admin: 06/26/22 20:23 Dose: 12.5 mg Ergocalciferol (Drisdol (Vitamin D=Ergocalciferol) 77617 Unit Cap) 50,000 unit PO Q7D [facility] Last Admin: 06/26/22 09:41 Dose: 50,000 unit Heparin Sodium (Porcine) (Heparin 1,000 Unit/Ml Vial) 4,000 unit IV EVERY HD PRN PRN Reason: FOR DIALYSIS CATHETER CARE Last Admin: 06/25/22 21:02 Dose: 4,000 unit Heparin Sodium (Porcine) (Heparin 1,000 Unit/Ml Vial) 2,000 unit IV EVERY HD PRN PRN Reason: Prevent Lines Clotting Last Admin: 06/25/22 18:12 Dose: 2,000 unit Heparin Sodium (Porcine) (Heparin 5000 Unit/Ml 1 Ml Vial) 5,000 unit SQ Q12HR [facility] Last Admin: 06/26/22 20:24 Dose: 5,000 unit Hydralazine HCl (Hydralazine Hcl 20 Mg/Ml Vial) 10 mg IV Q6HP PRN PRN Reason: SBP>160 MMHG OR DBP>100 MMHG Albumin Human (Albumin 25%) 50 mls @ 100 mls/hr IV EVERY HD [facility] Levothyroxine Sodium (Levothyroxine Sod 0.05 Mg Tablet) 0.05 mg PO DAILYAC [facility] Losartan Potassium (Losartan Potassium 50 Mg Tablet) 25 mg PO BID [facility] Last Admin: 06/26/22 20:23 Dose: 25 mg Mannitol (Mannitol 25% 12.5 Gm/50 Ml Vial) 12.5 gm IV EVERY HD PRN PRN Reason: BP support at hemodialysis Ondansetron HCl (Ondansetron 4 Mg/2 Ml Vial) 4 mg IV Q6HP PRN PRN Reason: NAUSEA / VOMITING Prasugrel (Prasugrel (Effient) 10 Mg Tab) 10 mg PO DAILY [facility] Sertraline HCl (Sertraline Hcl 100 Mg Tab) 100 mg PO DAILY AFTER SUPPER [facility] Last Admin: 06/26/22 18:41 Dose: 100 mg Sevelamer Carbonate (Sevelamer Carbonate 800 Mg Tablet) 800 mg PO TIDWM [facility] Last Admin: 06/26/22 18:41 Dose: 800 mg Sodium Chloride (Flush Normal Saline 10 Ml) 10 ml IV BID [facility] Last Admin: 06/26/22 20:25 Dose: 10 ml Assessment/ Plan: Nephrology No dyspnea No chest pain Feeling better today No acute events overnight Vitals, medications, blood work and imaging reviewed in the chart. General: In no apparent distress, Oriented x3, Cooperative HEENT: Atraumatic Neck: Supple Respiratory: Clear to auscultation bilaterally Cardiovascular: No edema, Regular rate/rhythm Gastrointestinal: Soft and benign, Non-distended Musculoskeletal: No clubbing, No contractures Integumentary: No rashes, No cyanosis Neurological: Normal speech Laboratory Data (last 24 hrs) 06/25/22 07:25: PT 10.9, INR 0.99 06/25/22 07:25: WBC 7.10, Hgb 11.7 L, Hct 36.1, Plt Count 243 06/25/22 07:25: Sodium 135 L, Potassium 3.7, BUN 42 H, Creatinine 4.84 H, Glucose 111 H, Magnesium 2.1, Total Bilirubin 1.1 H, AST 28, ALT 26, Alkaline Phosphatase 125 H, Lipase 30 Imagings Data: [facility] EXAM DESCRIPTION: - - 06/25/2022 2:26 pm CLINICAL HISTORY: Near Syncope COMPARISON: Head C Spine Mpr Wo Con dated 06/15/2022; Head Brain Wo Cont dated 06/25/2022 TECHNIQUE: Real-time sonographic grayscale, color duplex, and spectral wave Doppler evaluation of both carotid systems was performed. FINDINGS: Low resistance waveforms are noted in both external carotid arteries, of uncertain significance. The common carotid arteries and internal carotid arteries show normal low resistance waveforms. Moderate bilateral common carotid artery calcified irregular plaque. Right carotid bulb demonstrates irregular calcified echogenic plaque. Patent left ICA stent at the level of the bifurcation, with mild luminal stenosis of the mid to distal aspect of the stent. Peak systolic velocity 192 cm/sec on the right, and 125 cm/ sec on the left. ICA/CCA peak systolic ratio is 2.7 on the right and 2.6 on the left. Antegrade flow seen in both vertebral arteries. IMPRESSION: Moderate bilateral CCA and moderate to advanced right carotid bulb atherosclerotic plaque formation. Patent left carotid stent, with mild luminal stenosis of the mid to distal aspect of the stent. 50-69% stenosis of the right ICA. Patent vertebral arteries with antegrade flow. [facility] EXAM DESCRIPTION: [facility] Single View06/25/2022 7:40 am CLINICAL HISTORY: Cough COMPARISON: 2021 FINDINGS: Small left pleural effusion with basilar atelectasis Lungs appear clear of acute infiltrate The heart is mildly enlarged. Central venous catheter in place Conclusions/Impression: ESRD on HD -HD TIW Hyponatremia -HD TIW HTN with CKD/ CHF -Increase Losartan 50mg BID -Restart Coreg Diastolic CHF, chronic -Low sodium diet -Daily weight -HD with UF TIW Moderate malnutrition with decreased functional ability -Continue Nepro Anemia in CKD -Retacrit prn CKD MBD -Continue Ergo
[2022-06-27 04:16] LABS: BUN Blood Urea Nitrogen 43 mg/dL (7-18); Bicarbonate 26 mmol/L (21-32); Glomerular Filtration Rate 9 ml/min (=/>90); Glucose Level 126 mg/dL (74-106); Potassium 4.1 mmol/L (3.5-5.1); Sodium Level 138 mmol/L (136-145)
[2022-06-27 04:18] LABS: NT PRO-BNP > 175000 pg/mL (<450)
[2022-06-27] MEDS: LEVOTHYROXINE SOD 0.05 MG TABLET PO SCH (05:46)
[2022-06-27] MEDS: ASPIRIN 81 MG CHEWABLE TABLET PO SCH (08:07)
[2022-06-27] MEDS: HEPARIN 5000 UNIT/ML 1 ML VIAL SQ SCH ×2 (08:07→21:52)
[2022-06-27] MEDS: SEVELAMER CARBONATE 800 MG TABLET PO SCH ×3 (08:08→16:42)
[2022-06-27] MEDS: PRASUGREL (EFFIENT) 10 MG TAB PO SCH (08:10)
[2022-06-27] MEDS: carvediloL 12.5 MG TAB PO SCH ×2 (08:21→21:52)
[2022-06-27] MEDS: LOSARTAN POTASSIUM 50 MG TABLET PO SCH ×2 (08:21→21:53)
[2022-06-27] MEDS: HYDROCODONE/APAP 5/325 MG TAB PO PRN ×2 (11:05→21:50)
[2022-06-27] MEDS: SERTRALINE HCL 100 MG TAB PO SCH (16:42)
--- NOTE | 2022-06-27 16:47 | P.PN ---
Subjective Date of Service: 06/27/22 Chief Complaint: Generalized weakness, near syncopal Per nursing staff, she had an episode of confusion concerning for sundowning syndrome overnight. This morning, she is alert and oriented x 3. She states that she does not remember the events that transpired overnight. She states that her pain is well controlled. She continues to have generalized weakness. She denies any chest pain, palpitations, headaches, shortness of breath, or any other symptoms. Review of Systems 10-point ROS is otherwise unremarkable General: Weakness (generalized) Physical Examination - Vital Signs Temperature: 97.8 F Blood Pressure: 145/61 Pulse: 71 Respirations: 16 Pulse Ox (%): 95 - Physical Exam Other Physical/Emotional Findings: Examined alongside charge nurse, Ellen Dubose RN - Studies Laboratory Data (last 24 hrs) 06/27/22 02:54: Sodium 138, Potassium 4.1, BUN 43 H, Creatinine 4.44 H, Glucose 126 H Assessment And Plan - Plan - Physical Exam General: Alert, In no apparent distress, Oriented x3 HEENT: Atraumatic, Mucous membr. moist/pink, Sclerae nonicteric Neck: JVD not distended Respiratory: Clear to auscultation bilaterally, Normal air movement Cardiovascular: No edema, Regular rate/rhythm, No murmurs Gastrointestinal: Normal bowel sounds, Soft, Non-distended, No tenderness Musculoskeletal: No clubbing Integumentary: No rashes, Other (bruising down lateral right upper leg) Other Physical/Emotional Findings: Examined alongside charge nurse, Ellen Dubose, LEWIS # Hypervolemia secondary to Acute on Chronic Diastolic Congestive Heart Failure on End-Stage Renal Disease on MW iHD - Consult Nephrology and spoke with Dr. Porter - recommendations appreciated - Transthoracic echocardiogram = "1. normal left ventricular ejection fraction 55-60% 2. normal wall motion 3. moderate mitral regurgitation 4. mild tricuspid regurgitation/ aortic insufficiency 5. grade i diastolic dysfunction" - Volume removal via hemodialysis - Continue home sevelamer - Daily weights - Strict I/O - Cardiac diet, 1.5 L fluid restriction, 2 g Na restriction # Traumatic Ground-Level Fall complicated by Superior/Inferior Pubic Rami and Sacral Ala Fracture # Generalized Weakness with Presyncope # History of Partial Right Hip Replacement - Evaluation thus far: - CT head = "no acute intracranial abnormality is seen." - Pelvic x-ray = "diffuse osteopenia is noted. Right total hip arthroplasty noted. Heavy vascular calcification. Cortical irregularity of the inferior pubic ramus on the right is noted which probably represents fracture." - CT right lower extremity = "significant osteopenia limits bone detail. Right total hip arthroplasty noted. The right femur hand right femoral hardware appears intact." - CT pelvis = "fracture of the superior and inferior pubic rami on the right noted with little displacement. Suspected fracture right sacral ala medially. The bones are quite osteopenic." - Management plan: - Orthopedic Surgery not available at our facility - Spoke with Dr. Membreno ([facility] Orthopedic Surgery) and reviewed CT reports with him - He stated that fractures are not surgical - He recommended partial weight-bering with walker + assistance - Recommended PT/OT -> SNF with outpatient follow-up - Appreciate CM assistance - PT/OT consulted - VTE prophylaxis with SQ heparin # Hypothyroidism - TSH 7.910, Free T4 0.46 - Increased home levothyroxine from 25 mcg to 50 mcg # Coronary Artery Disease # History of Cerebrovascular Accident # Moderate Right Carotid Artery Stenosis # Left Carotid Artery Stenosis s/p Stenting # Hypertension # Hyperlipidemia - Carotid artery ultrasound = "moderate bilateral CCA and moderate to advanced right carotid bulb atherosclerotic plaque formation. Patent left carotid stent, with mild luminal stenosis of the mid to distal aspect of the stent. 50-69% stenosis of the right ICA. Patent vertebral arteries with antegrade flow." - Continue aspirin, carvedilol, atorvastatin, losartan, and prasugrel # Depression with Anxiety - Continue home sertraline Aurelio Hendrix M.D.
[2022-06-27] MEDS: ATORVASTATIN 20 MG TAB PO SCH (21:53)
[2022-06-27] MEDS: ENSURE HIGH PROTEIN 237 ML CAN PO SCH (21:53)
--- NOTE | 2022-06-27 22:00 | P.PN ---
Date of Service: 06/27/22 Vital Signs Temp Pulse Resp BP Pulse Ox 97.8 F 71 16 145/61 H 95 06/27/22 16:52 06/27/22 16:52 06/27/22 16:52 06/27/22 16:52 06/27/22 16:52 Medications Acetaminophen (Acetaminophen 325 Mg Tablet) 650 mg PO Q6H PRN PRN Reason: TEMP > 100' F Hydrocodone Bitart/Acetaminophen (Hydrocodone/Apap 5/325 Mg Tab) 1 tab PO Q8H PRN PRN Reason: Pain scale 5-7 (Moderate) Last Admin: 06/27/22 11:05 Dose: 1 tab Aspirin (Aspirin 81 Mg Chewable Tablet) 81 mg PO DAILY [facility] Last Admin: 06/27/22 08:07 Dose: 81 mg Atorvastatin Calcium (Atorvastatin 20 Mg Tab) 20 mg PO BEDTIME [facility] Last Admin: 06/26/22 20:22 Dose: 20 mg Carvedilol (Carvedilol 12.5 Mg Tab) 12.5 mg PO BID [facility] Last Admin: 06/27/22 08:21 Dose: 12.5 mg Ergocalciferol (Drisdol (Vitamin D=Ergocalciferol) 64700 Unit Cap) 50,000 unit PO Q7D [facility] Last Admin: 06/26/22 09:41 Dose: 50,000 unit Heparin Sodium (Porcine) (Heparin 1,000 Unit/Ml Vial) 4,000 unit IV EVERY HD PRN PRN Reason: FOR DIALYSIS CATHETER CARE Last Admin: 06/27/22 14:46 Dose: 4,000 unit Heparin Sodium (Porcine) (Heparin 1,000 Unit/Ml Vial) 2,000 unit IV EVERY HD PRN PRN Reason: Prevent Lines Clotting Last Admin: 06/27/22 11:42 Dose: 2,000 unit Heparin Sodium (Porcine) (Heparin 5000 Unit/Ml 1 Ml Vial) 5,000 unit SQ Q12HR [facility] Last Admin: 06/27/22 08:07 Dose: 5,000 unit Hydralazine HCl (Hydralazine Hcl 20 Mg/Ml Vial) 10 mg IV Q6HP PRN PRN Reason: SBP>160 MMHG OR DBP>100 MMHG Albumin Human (Albumin 25%) 50 mls @ 100 mls/hr IV EVERY HD [facility] Levothyroxine Sodium (Levothyroxine Sod 0.05 Mg Tablet) 0.05 mg PO DAILYAC [facility] Last Admin: 06/27/22 05:46 Dose: 0.05 mg Losartan Potassium (Losartan Potassium 50 Mg Tablet) 50 mg PO BID [facility] Last Admin: 06/27/22 08:21 Dose: 50 mg Mannitol (Mannitol 25% 12.5 Gm/50 Ml Vial) 12.5 gm IV EVERY HD PRN PRN Reason: BP support at hemodialysis Nutritional Formula (Ensure High Protein 237 Ml Can) 237 ml PO BID [facility] Ondansetron HCl (Ondansetron 4 Mg/2 Ml Vial) 4 mg IV Q6HP PRN PRN Reason: NAUSEA / VOMITING Prasugrel (Prasugrel (Effient) 10 Mg Tab) 10 mg PO DAILY [facility] Last Admin: 06/27/22 08:10 Dose: 10 mg Sertraline HCl (Sertraline Hcl 100 Mg Tab) 100 mg PO DAILY AFTER SUPPER [facility] Last Admin: 06/27/22 16:42 Dose: 100 mg Sevelamer Carbonate (Sevelamer Carbonate 800 Mg Tablet) 800 mg PO TIDWM [facility] Last Admin: 06/27/22 16:42 Dose: 800 mg Sodium Chloride (Flush Normal Saline 10 Ml) 10 ml IV BID [facility] Last Admin: 06/27/22 08:10 Dose: 10 ml Lab Results (last 24 hrs) 06/27/22 02:54: Sodium 138, Potassium 4.1, Chloride 106, Carbon Dioxide 26, Anion Gap 10.1, BUN 43 H, Creatinine 4.44 H, Est GFR (CKD-EPI) 9 L, Glucose 126 H, Calcium 7.6 L D, NT-Pro-B Natriuret Pep > 116170 H Assessment/ Plan: Nephrology No dyspnea No chest pain Fatigue and weakness again today No acute events overnight Vitals, medications, blood work and imaging reviewed in the chart. General: In no apparent distress, Oriented x3, Cooperative HEENT: Atraumatic Neck: Supple Respiratory: Clear to auscultation bilaterally Cardiovascular: No edema, Regular rate/rhythm Gastrointestinal: Soft and benign, Non-distended Musculoskeletal: No clubbing, No contractures Integumentary: No rashes, No cyanosis Neurological: Normal speech Laboratory Data (last 24 hrs) 06/25/22 07:25: PT 10.9, INR 0.99 06/25/22 07:25: WBC 7.10, Hgb 11.7 L, Hct 36.1, Plt Count 243 06/25/22 07:25: Sodium 135 L, Potassium 3.7, BUN 42 H, Creatinine 4.84 H, Glucose 111 H, Magnesium 2.1, Total Bilirubin 1.1 H, AST 28, ALT 26, Alkaline Phosphatase 125 H, Lipase 30 [facility] EXAM DESCRIPTION: - CP - 06/25/2022 2:26 pm CLINICAL HISTORY: Near Syncope COMPARISON: Head C Spine Mpr Wo Con dated 06/15/2022; Head Brain Wo Cont dated 06/25/2022 TECHNIQUE: Real-time sonographic grayscale, color duplex, and spectral wave Doppler evaluation of both carotid systems was performed. FINDINGS: Low resistance waveforms are noted in both external carotid arteries, of uncertain significance. The common carotid arteries and internal carotid arteries show normal low resistance waveforms. Moderate bilateral common carotid artery calcified irregular plaque. Right carotid bulb demonstrates irregular calcified echogenic plaque. Patent left ICA stent at the level of the bifurcation, with mild luminal stenosis of the mid to distal aspect of the stent. Peak systolic velocity 192 cm/sec on the right, and 125 cm/ sec on the left. ICA/CCA peak systolic ratio is 2.7 on the right and 2.6 on the left. Antegrade flow seen in both vertebral arteries. IMPRESSION: Moderate bilateral CCA and moderate to advanced right carotid bulb atherosclerotic plaque formation. Patent left carotid stent, with mild luminal stenosis of the mid to distal aspect of the stent. 50-69% stenosis of the right ICA. Patent vertebral arteries with antegrade flow. [facility] EXAM DESCRIPTION: [facility] Single [facility]06/25/2022 7:40 am CLINICAL HISTORY: Cough COMPARISON: 2021 FINDINGS: Small left pleural effusion with basilar atelectasis Lungs appear clear of acute infiltrate The heart is mildly enlarged. Central venous catheter in place Conclusions/Impression: ESRD on HD -HD TIW -Acute HD today Hyponatremia -HD TIW HTN with CKD/ CHF -Continue Losartan 50mg BID -Continue Coreg Diastolic CHF, chronic -Low sodium diet -Daily weight -HD with UF TIW Moderate malnutrition with decreased functional ability -Continue Nepro Anemia in CKD -Retacrit prn CKD MBD -Continue Ergo
[2022-06-28 04:32] LABS: BUN Blood Urea Nitrogen 29 mg/dL (7-18); Bicarbonate 31 mmol/L (21-32); Glomerular Filtration Rate 13 ml/min (=/>90); Glucose Level 133 mg/dL (74-106); Potassium 3.8 mmol/L (3.5-5.1); Sodium Level 138 mmol/L (136-145)
[2022-06-28 04:33] LABS: NT PRO-BNP > 175000 pg/mL (<450)
[2022-06-28] MEDS: LEVOTHYROXINE SOD 0.05 MG TABLET PO SCH (05:05)
[2022-06-28 08:44] VITALS: BP 151/60; TEMP 98.3
--- NOTE | 2022-06-28 08:49 | P.DS ---
Admission Date: 06/27/22 Discharge Date: 06/28/22 Disposition: TRANSFER TO HALF-WAY Comment: [facility] Discharge Condition: GOOD Reason for Admission: Generalized weakness, near syncopal Consultations: 1. Nephrology Hospital Course: DIAGNOSES: # Hypervolemia secondary to Acute on Chronic Diastolic Congestive Heart Failure on End-Stage Renal Disease on MWF iHD # Traumatic Ground-Level Fall complicated by Superior/Inferior Pubic Rami and Sacral Ala Fracture # Generalized Weakness with Presyncope # History of Partial Right Hip Replacement # Hypothyroidism # Coronary Artery Disease # History of Cerebrovascular Accident # Moderate Right Carotid Artery Stenosis # Left Carotid Artery Stenosis s/p Stenting # Moderate Mitral Regurgitation # Hypertension # Hyperlipidemia # Depression with Anxiety HOSPITAL COURSE: Ms. Isadora Jeffery is a pleasant 86 year old female with a past medical history significant for chronic diastolic congestive heart failure, coronary artery disease, left carotid artery stenosis s/p stenting, hypertension, hyperlipidemia, hypothyroidism, and depression with anxiety who was admitted to the [facility] on 06/25/2022 for generalized weakness with presyncope. She was admitted to the Medicine service. Upon further evaluation, she was found to have hypervolemia secondary to an acute on chronic diastolic congestive heart failure exacerbation. She was treated with volume removal via hemodialysis, and her symptoms improved significantly. Her NT-Pro BNP remains >175,000; however, this may be her baseline as it was the same value in March 2022. Clinically, she appears comfortable and euvolemic. Additionally, she reported a recent traumatic groundlevel fall. CT head revealed, "no acute intracranial abnormality is seen." Pelvic x-ray revealed, "diffuse osteopenia is noted. Right total hip arthroplasty noted. Heavy vascular calcification. Cortical irregularity of the inferior pubic ramus on the right is noted which probably represents fracture." CT right lower extremity revealed, "significant osteopenia limits bone detail. Right total hip arthroplasty noted. The right femur hand right femoral hardware appears intact." CT pelvis revealed, "fracture of the superior and inferior pubic rami on the right noted with little displacement. Suspected fracture right sacral ala medially. The bones are quite osteopenic." Since Orthopedic Surgery was unavailable at our facility, her case was reviewed with Dr. Membreon ([facility] Orthopedic Surgery), who recommended partial weight-bearing with walker and assistance. PT/OT were consulted, and recommended that she receive continued therapy services. With the assistance of case management, she was accepted to [facility]. Incidentally, she was noted to have hypothyroidism on her labs despite being on levothyroxine 25 mcg. Her dose was raised to 50 mcg and she was advised to follow-up with her PCP for repeat thyroid function tests in 3-4 weeks. She was also advised to follow-up with Dr. Stoll for the moderate right carotid artery stenosis noted on her carotid ultrasound. On 06/28/2022, she was seen on morning rounds and deemed medically stable for discharge. She was discharged with instructions to schedule follow-up appointments with her PCP (Dr. Pina), with Nephrology (Dr. Porter), with Neurology (Dr. Stoll), and with Orthopedic Surgery (Dr. Stanford). She and her son, Mr. Maurice Jeffery, were given the opportunity to ask questions and reported no further questions. Furthermore, all questions were answered to the best of my ability. A copy of this discharge summary will be sent to the above providers to facilitate continuity of care. Today, I personally spent 25 minutes on her case, of which greater than 50% of the time was spent in patient education, counseling, and coordination of care as described above. - Physical Exam General: Alert, In no apparent distress, Oriented x3 HEENT: Atraumatic, Mucous membr. moist/pink, Sclerae nonicteric Neck: JVD not distended Respiratory: Clear to auscultation bilaterally, Normal air movement Cardiovascular: No edema, Regular rate/rhythm, No murmurs Gastrointestinal: Normal bowel sounds, Soft, No tenderness Musculoskeletal: No clubbing Integumentary: No rashes Vital Signs/Physical Exam: Temp Pulse Resp BP Pulse Ox 98.3 F 68 16 151/60 H 97 06/28/22 08:00 06/28/22 08:00 06/28/22 08:00 06/28/22 08:00 06/28/22 08:00 Other Physical/Emotional Findings: Examined alongside charge nurse, Ellen Dubose RN Laboratory Data at Discharge: WBC 7.00 K/uL (4.3-10.9) 06/26/22 04:07 Hgb 10.0 g/dL (12.0-15.0) L D 06/26/22 04:07 Hct 30.4 % (36.0-45.0) L 06/26/22 04:07 Plt Count 207 K/uL (152-406) 06/26/22 04:07 PT 10.9 SECONDS (9.5-12.5) 06/25/22 07:25 INR 0.99 06/25/22 07:25 Sodium 138 mmol/L (136-145) 06/28/22 03:37 Potassium 3.8 mmol/L (3.5-5.1) 06/28/22 03:37 BUN 29 mg/dL (7-18) H 06/28/22 03:37 Creatinine 3.42 mg/dL (0.55-1.02) H 06/28/22 03:37 Glucose 133 mg/dL (74-106) H 06/28/22 03:37 Phosphorus 4.7 mg/dL (2.5-4.9) 06/25/22 17:46 Magnesium 1.9 mg/dL (1.6-2.4) 06/25/22 17:46 Total Bilirubin 1.1 mg/dL (0.2-1.0) H 06/25/22 07:25 AST 28 U/L (15-37) 06/25/22 07:25 ALT 26 U/L (13-56) 06/25/22 07:25 Alkaline Phosphatase 125 U/L (45-117) H 06/25/22 07:25 Lipase 30 U/L (13-75) 06/25/22 07:25 Home Medications: Prasugrel HCl 10 mg PO DAILY 11/02/21 Sevelamer Carbonate [Renvela*] 800 mg PO TIDWM 11/02/21 carvediloL [Coreg*] 12.5 mg PO BID 11/02/21 Hydrocodone 5/APAP 325 [[place] 5/325*] 1 tab PO Q8H PRN #15 tab 11/21/21 Losartan Potassium [Cozaar*] 50 mg PO BID 11/21/21 Aspirin Chewable [Aspirin Chewable*] 81 mg PO DAILY 06/26/22 Atorvastatin Calcium [Lipitor*] 20 mg PO BEDTIME 06/26/22 Cyanocobalamin [Vitamin B-12*] 1,000 mcg IM DIRECTED 06/26/22 Furosemide [Lasix*] 40 mg PO BID 06/26/22 Melatonin [Melatonin*] 10 mg PO BEDTIME 06/26/22 Sertraline [Zoloft*] 100 mg PO DAILY AFTER SUPPER 06/26/22 Ensure High Protein 237 ml PO BID can 06/28/22 Levothyroxine [Synthroid*] 0.05 mg PO DAILYAC 06/28/22 Physician Discharge Instructions: 1. Please call and schedule a follow-up appointment with your PCP (Dr. Pina) in 3-5 days - Your thyroid tests show that you still have hypothyroidism. Your levothyroxine dose was increased from 25 mcg to 50 mcg - Please have your thyroid levels rechecked in about 3-4 weeks 2. Please call and schedule a follow-up appointment with Nephrology (Dr. Porter) in 3-5 days 3. Please call and schedule a follow-up appointment with Orthopedic Surgery (Dr. Stanford) in 5-7 days 4. Please call and schedule a follow-up appointment with Neurology (Dr. Stoll) in 5-7 days - There is narrowing in your right carotid artery. Please discuss treatment options with Dr. Stoll. Diet: AHA Activity: Partial Weight Bearing with Walker and Assistance Followup: Carlos Manuel Porter DO [ACTIVE - CAN ADMIT] - Iftikhar Stanford MD [ACTIVE - CAN ADMIT] - Cuong Pina MD [Primary Care Provider] - Julito Stoll MD [ASSOCIATE-ACTIVE - CAN ADMIT] - Time spent managing pt's care (in minutes): 25
[2022-06-28] MEDS: ENSURE HIGH PROTEIN 237 ML CAN PO SCH (09:00)
[2022-06-28] MEDS: PRASUGREL (EFFIENT) 10 MG TAB PO SCH (09:00)
[2022-06-28] MEDS: SEVELAMER CARBONATE 800 MG TABLET PO SCH (09:00)
[2022-06-28] MEDS ORDERED: POTASSIUM CL SA 10 MEQ TAB PO ONE (09:00)
[2022-06-28] MEDS: ASPIRIN 81 MG CHEWABLE TABLET PO SCH (09:01)
[2022-06-28] MEDS: carvediloL 12.5 MG TAB PO SCH (09:01)
[2022-06-28] MEDS: LOSARTAN POTASSIUM 50 MG TABLET PO SCH (09:02)
[2022-06-28] MEDS: HEPARIN 5000 UNIT/ML 1 ML VIAL SQ SCH (09:03)
[2022-06-28 09:04] VITALS: O2SAT 100
--- NOTE | 2022-06-28 20:42 | P.PN ---
Date of Service: 06/28/22 Vital Signs Temp Pulse Resp BP Pulse Ox 98.3 F 68 16 151/60 H 97 06/28/22 08:00 06/28/22 09:01 06/28/22 08:00 06/28/22 09:01 06/28/22 08:00 Assessment/ Plan: Nephrology No dyspnea No chest pain Feeling better today No acute events overnight Vitals, medications, blood work and imaging reviewed in the chart. General: In no apparent distress, Oriented x3, Cooperative HEENT: Atraumatic Neck: Supple Respiratory: Clear to auscultation bilaterally Cardiovascular: No edema, Regular rate/rhythm Gastrointestinal: Soft and benign, Non-distended Musculoskeletal: No clubbing, No contractures Integumentary: No rashes, No cyanosis Neurological: Normal speech Laboratory Data (last 24 hrs) 06/25/22 07:25: PT 10.9, INR 0.99 06/25/22 07:25: WBC 7.10, Hgb 11.7 L, Hct 36.1, Plt Count 243 06/25/22 07:25: Sodium 135 L, Potassium 3.7, BUN 42 H, Creatinine 4.84 H, Glucose 111 H, Magnesium 2.1, Total Bilirubin 1.1 H, AST 28, ALT 26, Alkaline Phosphatase 125 H, Lipase 30 Imagings Data: [facility] EXAM DESCRIPTION: - - 06/25/2022 2:26 pm CLINICAL HISTORY: Near Syncope COMPARISON: Head C Spine Mpr Wo Con dated 06/15/2022; Head Brain Wo Cont dated 06/25/2022 TECHNIQUE: Real-time sonographic grayscale, color duplex, and spectral wave Doppler evaluation of both carotid systems was performed. FINDINGS: Low resistance waveforms are noted in both external carotid arteries, of uncertain significance. The common carotid arteries and internal carotid arteries show normal low resistance waveforms. Moderate bilateral common carotid artery calcified irregular plaque. Right carotid bulb demonstrates irregular calcified echogenic plaque. Patent left ICA stent at the level of the bifurcation, with mild luminal stenosis of the mid to distal aspect of the stent. Peak systolic velocity 192 cm/sec on the right, and 125 cm/ sec on the left. ICA/CCA peak systolic ratio is 2.7 on the right and 2.6 on the left. Antegrade flow seen in both vertebral arteries. IMPRESSION: Moderate bilateral CCA and moderate to advanced right carotid bulb atherosclerotic plaque formation. Patent left carotid stent, with mild luminal stenosis of the mid to distal aspect of the stent. 50-69% stenosis of the right ICA. Patent vertebral arteries with antegrade flow. [facility] EXAM DESCRIPTION: [place] Single View06/25/2022 7:40 am CLINICAL HISTORY: Cough COMPARISON: 2021 FINDINGS: Small left pleural effusion with basilar atelectasis Lungs appear clear of acute infiltrate The heart is mildly enlarged. Central venous catheter in place Conclusions/Impression: ESRD on HD -HD TIW Hyponatremia -HD TIW HTN with CKD/ CHF -Continue Losartan 50mg BID -Continue Coreg Diastolic CHF, chronic -Low sodium diet -Daily weight -HD with UF TIW Moderate malnutrition with decreased functional ability -Continue Nepro Anemia in CKD -Retacrit prn CKD MBD -Continue Ergo
== END 2022-06-28 11:34 | DRG 291 ==
LOC: ER 06:17 → ERHOLD 08:24 → 2ND 09:32 → OBSVTOIN 06-27 10:03
PROVIDERS: ADMIT Internal Medicine; ATTEND Internal Medicine
PROC: 5A1D70Z Performance of Urinary Filtration, Intermittent, Less than 6 Hours Per Day (ICD-10-PCS; principal; 2022-06-25)
DX: I13.2 Hypertensive heart and chronic kidney disease with heart failure and with stage 5 chronic kidney disease, or end stage renal disease (principal); I50.33 Acute on chronic diastolic (congestive) heart failure; N18.6 End stage renal disease; S32.19XA Other fracture of sacrum, initial encounter for closed fracture; S32.511A Fracture of superior rim of right pubis, initial encounter for closed fracture; E87.1 Hypo-osmolality and hyponatremia; E44.0 Moderate protein-calorie malnutrition; Z68.1 Body mass index [BMI] 19.9 or less, adult; D63.1 Anemia in chronic kidney disease; E03.9 Hypothyroidism, unspecified; F41.8 Other specified anxiety disorders; I08.3 Combined rheumatic disorders of mitral, aortic and tricuspid valves; I65.22 Occlusion and stenosis of left carotid artery; E78.5 Hyperlipidemia, unspecified; M85.88 Other specified disorders of bone density and structure, other site; I25.10 Atherosclerotic heart disease of native coronary artery without angina pectoris; Z99.2 Dependence on renal dialysis; Z88.5 Allergy status to narcotic agent; Z60.2 Problems related to living alone; Z79.01 Long term (current) use of anticoagulants; Z79.82 Long term (current) use of aspirin; Z86.73 Personal history of transient ischemic attack (TIA), and cerebral infarction without residual deficits; Z79.899 Other long term (current) drug therapy; Z96.641 Presence of right artificial hip joint; Z90.710 Acquired absence of both cervix and uterus; Z20.822 Contact with and (suspected) exposure to COVID-19
CPT/HCPCS: 0240U; 36415; 70450; 71045; 72192; 73700; 80048; 80076; 83605; 83690; 83735; 83880; 84100; 84439; 84443; 84484; 85025; 85610; 86706; 86850; 86900; 86901; 87340; 90935; 93005; 93306; 93880; 96361; 96374; 97116; 97161; 97530; 99285; G0378; J1644; J7030; U0003

== ENCOUNTER 2022-08-14 07:51 | Inpatient (IN) | payer OTHER ==
[2022-08-14] MEDS ORDERED: ATROPINE SULFATE 1 MG/ML INJ IV ONE (07:52)
--- OUTSIDE RECORDS SUMMARY | 2022-08-14 07:56 | XMS REPORT | Continuity of Care Document ---
:1935 Author Organization [facility] t Address [address] [facility] [address] [place] [address] Care Team Providers Name Role Phone PARKER [...] Number Effective Date Expiration Date Haja LYNCH/JOSE [id number] 2022 MEDICARE 00:00:00 [facility]ANT[id number] [facility] MEDICARE PART A [id number] \T\ B 00:00:00 MEDICARE-PART B 5 [id number] 2018 00:00:00 Problems Condition Condition Condition Status Onset Resolution Last Treating Co mments Source Name Details Category Date Date Treatment Clinician Date HTN HTN Disease Active 2019-[address] [facility] (hypertens (hypertens 3-04 Klaudia kes ion) ion) 00:00: Medical 00 [place] HLD HLD Disease Active [facility] (hyperlipi (hyperlipi 3-04 Klaudia kes demia) demia) 00:00: Medical 00 Center CAD CAD Disease Active [facility] (coronary (coronary 3-04 [facility] artery artery 00:00: Medical disease) disease) 00 Center TIA TIA Disease Active [facility] (transient (transient 3-03 Klaudia kes ischemic ischemic 00:00: Medica l attack) attack) 00 [place] Hip Hip Disease Active 2015-04 [facility] fracture fracture 0-10 ity of 00:00: [address] Femur Femur Disease Active 2015-04 Univers fracture, fracture, 0-08 ity of right right 00:00: [address] [id number] Right Problem Active [facility] sci[facility] nerve pain - [facility] [id number] Closed Problem Active Common displaced [facility] intertroch - [facility] fracture kes of left Medical femur with Center routine healing, subsequent encounter [id number] [place] [address] left hip [facility] joint - [facility] [id number] 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 [facility] [id number] Thoracogen Problem Active Com mon ic [facility] scoliosis - [facility] of thoracic [facility] [id number] [place] of [place] [address] right hip [facility] joint pain - [facility] [id number] Scoliosis Problem Active Com mon of lumbar [facility] Med[facility] l of spine Center [...] 3-03 [facility] adverse 00:00: Medical reaction 00 [place] s CODEINE DRUG Active Hallucinates 2015-04 Uni vers INGREDI 0-08 ity of 00:00: [address] Branch Codeine Propensi Active Hallucinatio 2016-1 U nivers ty to ns 0-08 ity of adverse 00:00: [place] reaction 00 Medical s Branch codeine codeine Active Unknown [facility] Social History Social Habit Start Date Stop Date Quantity Comments Source History of [facility] - Tobacco Use [facility] History [facility] Alcohol Comment Medical C enter Exposure to 2022-06-09 2022-06-19 Not sure University of SARS-CoV-2 00:00:00 03:09:00 [place] [facility] (event) Branch History [facility] 2018-06-16 2018-06-[address] [facility] Alcohol Frequency 00:00:00 00:00:00 Medical Center History [facility] 2018-06-16 2018-06-[address] [facility] Alcohol Std 00:00:00 00:00:00 Medical Cente r Drinks History [facility] 2018-06-16 2018-06-[address] [facility] Alcohol Binge 00:00:00 00:00:[address] Tobacco use and 2018-06-15 2018-06-[address] [facility] exposure 00:00:00 00:00:00 non-user Medical Center Alcohol intake 2018-06-15 2018-06-15 [facility] alcohol [facility] Center (finding) Sex Assigned At [address] Klaudia kes 00:00:00 00:00:00 Medical Center Smoking Status Start Date Stop Date Source Never Smoker [facility] Medications Ordered Filled Start Stop Current Ordering Indication Dosage Frequency Signature Comments Components Source Medication Medication Date Date Medication? Clinician (SIG) Name Name TAKE 1 2021- No TABLET BY 8-22 MOUTH FOUR 00:00: TIMES A DAY 00 TAKE 1 2021-0 No TABLET BY 8-22 MOUTH FOUR 00:00: TIMES A DAY 00 TAKE 1 2021-0 No 650 TABLET BY 8-22 MOUTH FOUR 00:00: TIMES A DAY 00 Dose 2021-0 No Unknown 11-24 00:00: 00 Dose 2021-0 No Unknown 11-24 00:00: 00 Dose 2021-0 No Unknown 11-24 00:00: 00 Dose 2021-0 No Unknown 11-13 00:00: 00 Dose 2021-0 No Unknown 11-13 00:00: 00 Dose 2022-0 No Unknown 8- [...] 20 mg 6-24 tablet 00:00: 00 atorvastati 1-0 No 1mg n 20 mg 6-24 tablet 00:00: 00 atorvastati 1-0 No 1mg n 20 mg 6-24 tablet 00:00: 00 amlodipine 1-0 No 1mg 10 mg 6-10 tablet 00:00: 00 metoprolol 2021-0 No 1mg tartrate 50 6-10 mg tablet 00:00: 00 atorvastati 2021-0 No 1mg n 20 mg 6-10 tablet 00:00: 00 atorvastati 1-0 No 1mg n 20 mg 6-10 tablet 00:00: 00 alendronate 1-0 No 1mg 70 mg 6-10 tablet 00:00: [...] 1mcg mcg tablet 5-28 00:00: 00 cyanocobala 2020-0 No 1mcg/mL min (vit 09-09 B-12) 1,000 00:00: mcg/mL 00 injection solution amlodipine 2020-0 No 1mg 10 mg -28 tablet 00:00: 00 Levo-T 25 2020-0 No 1mcg mcg tablet 09-09 00:00: 00 cyanocobala 1-0 No 1mcg/mL min (vit 09-09 B-12) 1,000 00:00: mcg/mL 00 injection solution amlodipine 2020-0 No 1mg 10 mg -28 tablet 00:00: 00 Levo-T 25 2020-0 No [...] solution cyanocobala 2021-0 No 1mcg/mL min (vit 4 [...] solution cyanocobala 1-0 No 1mcg/mL min (vit 1 B-12) 1,000 00:00: mcg/mL 00 injection solution cyanocobala 1-0 No 1mcg/mL min (vit 1 [...] needed Spirit 00:00: - [facility] Tylenol 8 Tylenol 8 No 2{table TID Tylenol 8 Hour 650 MG Hour 650 MG 11-06 ts_as_n Hour 650 00:00: eeded} MG 00 Tylenol 8 Tylenol 8 No 2{table TID Tylenol 8 Hour 650 MG Hour 650 MG - ts_as_n Hour 650 00:00: eeded} MG 00 metoprolol Yes 50mg QD Take [address] (LOPRESSOR) 3-05 by mouth Luke s 25 MG 20:29: daily. Medical tablet 27 [place] prasugr Yes 10mg QD Take [address] (EFFIENT) 3-05 by mouth Lukes 10 mg Tab 20:29: daily. Medica l tablet 27 [place] levothyroxi Yes 25ug Take [address] ne 3-05 mcg by Lukes (SYNTHROID, 20:29: mouth Medic al LEVOTHROID) 27 Every Center 25 MCG morning on tablet an empty stomach. losartan Yes 100mg QD Take [address] (COZAAR) 3-05 mg by Lukes 100 MG 20:29: mouth Medical tablet 27 daily. [place] metoprolol Yes 50mg QD Take [address] (LOPRESSOR) 3-05 by mouth Luke s 25 MG 20:29: daily. Medical tablet 27 [facility] Yes 10mg QD Take [address] (EFFIENT) 3-05 by mouth Lukes 10 mg Tab 20:29: daily. Medica l tablet 27 [place] levothyrox Yes 25ug Take [address] ne 3-05 mcg by Lukes (SYNTHROID, 20:29: mouth Medic al LEVOTHROID) 27 Every Center 25 MCG morning on tablet an empty stomach. losartan Yes 100mg QD Take [address] (COZAAR) 3-05 mg by Lukes 100 MG 20:29: mouth Medical tablet 27 daily. [place] metoprolol Yes 50mg QD Take [address] (LOPRESSOR) 3-05 by mouth Luke s 25 MG 20:29: daily. Medical tablet 27 [place] prasugr 20190 Yes 10mg QD Take [address] (EFFIENT) 3-05 by mouth Lukes 10 mg Tab 20:29: daily. Medica l tablet 27 [place] levothyroxi 0 Yes 25ug Take [address] ne 3-05 mcg by Lukes (SYNTHROID, 20:29: mouth Medic al LEVOTHROID) 27 Every Center 25 MCG morning on tablet an empty stomach. losartan 2018-0 Yes 100mg QD Take [address] (COZAAR) 3-05 mg by Lukes 100 MG 20:29: mouth Medical tablet 27 daily. [place] metoprolol 0 Yes 50mg QD Take [address] (LOPRESSOR) 3-05 by mouth Luke s 25 MG 20:29: daily. Medical tablet 27 [place] prasugr 0 Yes 10mg QD Take [address] (EFFIENT) 3-05 by mouth Lukes 10 mg Tab 20:29: daily. Medica l tablet 27 [place] levothyroxi 0 Yes 25ug Take [address] ne 3-05 mcg by Lukes (SYNTHROID, 20:29: mouth Medic al LEVOTHROID) 27 Every Center 25 MCG morning on tablet an empty stomach. losartan 2018-0 Yes 100mg QD Take [address] (COZAAR) 3-05 mg by Lukes 100 MG 20:29: mouth Medical tablet 27 daily. [place] metoprolol 0 Yes 50mg QD Take [address] (LOPRESSOR) 3-05 by mouth Luke s 25 MG 20:29: daily. Medical tablet 27 [place] prasugr 0 Yes 10mg QD Take [address] (EFFIENT) 3-05 by mouth Lukes 10 mg Tab 20:29: daily. Medica l tablet 27 [place] levothyroxi 0 Yes 25ug Take [address] ne 3-05 mcg by Lukes (SYNTHROID, 20:29: mouth Medic al LEVOTHROID) 27 Every Center 25 MCG morning on tablet an empty stomach. losartan 2019-0 Yes 100mg QD Take [address] (COZAAR) 3-05 mg by Lukes 100 MG 20:29: mouth Medical tablet 27 daily. [place] metoprolol 2019-0 Yes 50mg QD Take [address] (LOPRESSOR) 3-05 by mouth Luke s 25 MG 20:29: daily. Medical tablet 27 [place] prasugr 0 Yes 10mg QD Take [address] (EFFIENT) 3-05 by mouth Lukes 10 mg Tab 20:29: daily. Medica l tablet 27 [place] levothyroxi 0 Yes 25ug Take [address] ne 3-05 mcg by Lukes (SYNTHROID, 20:29: mouth Medic al LEVOTHROID) 27 Every Center 25 MCG morning on tablet an empty stomach. losartan 2018-0 Yes 100mg QD Take [address] (COZAAR) 3-05 mg by Lukes 100 MG 20:29: mouth Medical tablet 27 daily. [place] metoprolol 0 Yes 50mg QD Take [address] (LOPRESSOR) 3-05 by mouth Luke s 25 MG 20:29: daily. Medical tablet 27 [place] prasugr Yes 10mg QD Take [address] (EFFIENT) 3-05 by mouth Lukes 10 mg Tab 20:29: daily. Medica l tablet 27 [place] levothyroxi 0 Yes 25ug Take [address] ne 3-05 mcg by Lukes (SYNTHROID, 20:29: mouth Medic al LEVOTHROID) 27 Every Center 25 MCG morning on tablet an empty stomach. losartan 0 Yes 100mg QD Take [address] (COZAAR) 3-05 mg by Lukes 100 MG 20:29: mouth Medical tablet 27 daily. [place] metoprolol 0 Yes 50mg QD Take [address] (LOPRESSOR) 3-05 by mouth Luke s 25 MG 20:29: daily. Medical tablet 27 [place] prasugr 0 Yes 10mg QD Take [address] (EFFIENT) 3-05 by mouth Lukes 10 mg Tab 20:29: daily. Medica l tablet 27 [place] levothyroxi 0 Yes 25ug Take [address] ne 3-05 mcg by Lukes (SYNTHROID, 20:29: mouth Medic al LEVOTHROID) 27 Every Center 25 MCG morning on tablet an empty stomach. losartan 2018-0 Yes 100mg QD Take [address] (COZAAR) 3-05 mg by Lukes 100 MG 20:29: mouth Medical tablet 27 daily. [place] metoprolol 0 Yes 50mg QD Take [address] (LOPRESSOR) 3-05 by mouth Luke s 25 MG 20:29: daily. Medical tablet 27 [place] prasugr 0 Yes 10mg QD Take [address] (EFFIENT) 3-05 by mouth Lukes 10 mg Tab 20:29: daily. Medica l tablet 27 [place] levothyroxi 0 Yes 25ug Take [address] ne 3-05 mcg by Lukes (SYNTHROID, 20:29: mouth Medic al LEVOTHROID) 27 Every Center 25 MCG morning on tablet an empty stomach. losartan 0 Yes 100mg QD Take [address] (COZAAR) 3-05 mg by Lukes 100 MG 20:29: mouth Medical tablet 27 daily. [place] metoprolol Yes 50mg QD Take [address] (LOPRESSOR) 3-05 by mouth Luke s 25 MG 20:29: daily. Medical tablet 27 [facility] Yes 10mg QD Take [address] (EFFIENT) 3-05 by mouth Lukes 10 mg Tab 20:29: daily. Medica l tablet 27 [place] levothyroxi Yes 25ug Take [address] ne 3-05 mcg by Lukes (SYNTHROID, 20:29: mouth Medic al LEVOTHROID) 27 Every Center 25 MCG morning on tablet an empty stomach. losartan 0 Yes 100mg QD Take [address] (COZAAR) 3-05 mg by Lukes 100 MG 20:29: mouth Medical tablet 27 daily. [place] metoprolol 0 Yes 50mg QD Take [address] (LOPRESSOR) 3-05 by mouth Luke s 25 MG 20:29: daily. Medical tablet 27 [place] prasugr 0 Yes 10mg QD Take [address] (EFFIENT) 3-05 by mouth Lukes 10 mg Tab 20:29: daily. Medica l tablet 27 [place] levothyroxi 0 Yes 25ug Take [address] ne 3-05 mcg by Lukes (SYNTHROID, 20:29: mouth Medic al LEVOTHROID) 27 Every Center 25 MCG morning on tablet an empty stomach. losartan 2018-0 Yes 100mg QD Take [address] (COZAAR) 3-05 mg by Lukes 100 MG 20:29: mouth Medical tablet 27 daily. [place] metoprolol 0 Yes 50mg QD Take [address] (LOPRESSOR) 3-05 by mouth Luke s 25 MG 20:29: daily. Medical tablet 27 [place] prasugr 2019-0 Yes 10mg QD Take [address] (EFFIENT) 3-05 by mouth Lukes 10 mg Tab 20:29: daily. Medica l tablet 27 [place] levothyroxi 0 Yes 25ug Take [address] ne 3-05 mcg by Lukes (SYNTHROID, 20:29: mouth Medic al LEVOTHROID) 27 Every Center 25 MCG morning on tablet an empty stomach. losartan 2019-0 Yes 100mg QD Take [address] (COZAAR) 3-05 mg by Lukes 100 MG 20:29: mouth Medical tablet 27 daily. [place] metoprolol 2019-0 Yes 50mg QD Take [address] (LOPRESSOR) 3-05 by mouth Luke s 25 MG 20:29: daily. Medical tablet 27 [facility] 0 Yes 10mg QD Take [address] (EFFIENT) 3-05 by mouth Lukes 10 mg Tab 20:29: daily. Medica l tablet 27 [place] levothyroxi 0 Yes 25ug Take [address] ne 3-05 mcg by Lukes (SYNTHROID, 20:29: mouth Medic al LEVOTHROID) 27 Every Center 25 MCG morning on tablet an empty stomach. losartan 2018-0 Yes 100mg QD Take [address] (COZAAR) 3-05 mg by Lukes 100 MG 20:29: mouth Medical tablet 27 daily. [place] metoprolol 2018-0 Yes 50mg QD Take [address] (LOPRESSOR) 3-05 by mouth Luke s 25 MG 20:29: daily. Medical tablet 27 [place] prasugr 2018-0 Yes 10mg QD Take [address] (EFFIENT) 3-05 by mouth Lukes 10 mg Tab 20:29: daily. Medica l tablet 27 [place] levothyroxi 20190 Yes 25ug Take [address] ne 3-05 mcg by Lukes (SYNTHROID, 20:29: mouth Medic al LEVOTHROID) 27 Every Center 25 MCG morning on tablet an empty stomach. losartan 2019-0 Yes 100mg QD Take [address] (COZAAR) 3-05 mg by Lukes 100 MG 20:29: mouth Medical tablet 27 daily. [place] metoprolol 2019-0 Yes 50mg QD Take [address] (LOPRESSOR) 3-05 by mouth Luke s 25 MG 20:29: daily. Medical tablet 27 [place] prasugr 2019-0 Yes 10mg QD Take [address] (EFFIENT) 3-05 by mouth Lukes 10 mg Tab 20:29: daily. Medica l tablet 27 [place] levothyroxi 0 Yes 25ug Take [address] ne 3-05 mcg by Lukes (SYNTHROID, 20:29: mouth Medic al LEVOTHROID) 27 Every Center 25 MCG morning on tablet an empty stomach. losartan 2018-0 Yes 100mg QD Take [address] (COZAAR) 3-05 mg by Lukes 100 MG 20:29: mouth Medical tablet 27 daily. [place] metoprolol 0 Yes 50mg QD Take [address] (LOPRESSOR) 3-05 by mouth Luke s 25 MG 20:29: daily. Medical tablet 27 [facility] 0 Yes 10mg QD Take [address] (EFFIENT) 3-05 by mouth Lukes 10 mg Tab 20:29: daily. Medica l tablet 27 [place] levothyrox 0 Yes 25ug Take [address] ne 3-05 mcg by Lukes (SYNTHROID, 20:29: mouth Medic al LEVOTHROID) 27 Every Center 25 MCG morning on tablet an empty stomach. losartan 2018-0 Yes 100mg QD Take [address] (COZAAR) 3-05 mg by Lukes 100 MG 20:29: mouth Medical tablet 27 daily. [place] metoprolol 0 Yes 50mg QD Take [address] (LOPRESSOR) 3-05 by mouth Luke s 25 MG 20:29: daily. Medical tablet 27 [place] prasugr 0 Yes 10mg QD Take [address] (EFFIENT) 3-05 by mouth Lukes 10 mg Tab 20:29: daily. Medica l tablet 27 [place] levothyrox 0 Yes 25ug Take [address] ne 3-05 mcg by Lukes (SYNTHROID, 20:29: mouth Medic al LEVOTHROID) 27 Every Center 25 MCG morning on tablet an empty stomach. losartan 2019-0 Yes 100mg QD Take [address] (COZAAR) 3-05 mg by Lukes 100 MG 20:29: mouth Medical tablet 27 daily. [place] metoprolol 2019-0 Yes 50mg QD Take [address] (LOPRESSOR) 3-05 by mouth Luke s 25 MG 20:29: daily. Medical tablet 27 [place] prasugr [id number] Yes 10mg QD Take [address] (EFFIENT) 3-05 by mouth Lukes 10 mg Tab 20:29: daily. Medica l tablet 27 [place] levothyroxi 0 Yes 25ug Take [address] ne 3-05 mcg by Lukes (SYNTHROID, 20:29: mouth Medic al LEVOTHROID) 27 Every Center 25 MCG morning on tablet an empty stomach. losartan 2018-0 Yes 100mg QD Take [address] (COZAAR) 3-05 mg by Lukes 100 MG 20:29: mouth Medical tablet 27 daily. [place] metoprolol 0 Yes 50mg QD Take [address] (LOPRESSOR) 3-05 by mouth Luke s 25 MG 20:29: daily. Medical tablet 27 [facility] Yes 10mg QD Take [address] (EFFIENT) 3-05 by mouth Lukes 10 mg Tab 20:29: daily. Medica l tablet 27 [place] levothyroxi 0 Yes 25ug Take [address] ne 3-05 mcg by Lukes (SYNTHROID, 20:29: mouth Medic al LEVOTHROID) 27 Every Center 25 MCG morning on tablet an empty stomach. losartan 2018-0 Yes 100mg QD Take [address] (COZAAR) 3-05 mg by Lukes 100 MG 20:29: mouth Medical tablet 27 daily. [place] metoprolol 0 Yes 50mg QD Take [address] (LOPRESSOR) 3-05 by mouth Luke s 25 MG 20:29: daily. Medical tablet 27 [place] prasugr 0 Yes 10mg QD Take [address] (EFFIENT) 3-05 by mouth Lukes 10 mg Tab 20:29: daily. Medica l tablet 27 [place] levothyroxi 0 Yes 25ug Take [address] ne 3-05 mcg by Lukes (SYNTHROID, 20:29: mouth Medic al LEVOTHROID) 27 Every Center 25 MCG morning on tablet an empty stomach. losartan 2019-0 Yes 100mg QD Take [address] (COZAAR) 3-05 mg by Lukes 100 MG 20:29: mouth Medical tablet 27 daily. [place] metoprolol [id number] Yes 50mg QD Take [address] (LOPRESSOR) 3-05 by mouth Luke s 25 MG 20:29: daily. Medical tablet 27 [place] prasugrel 0 Yes 10mg QD Take [address] (EFFIENT) 3-05 by mouth Lukes 10 mg Tab 20:29: daily. Medica l tablet 27 [place] levothyroxi 0 Yes 25ug Take [address] ne 3-05 mcg by Lukes (SYNTHROID, 20:29: mouth Medic al LEVOTHROID) 27 Every Center 25 MCG morning on tablet an empty stomach. losartan 2018-0 Yes 100mg QD Take [address] (COZAAR) 3-05 mg by Lukes 100 MG 20:29: mouth Medical tablet 27 daily. [place] metoprolol 0 Yes 50mg QD Take [address] (LOPRESSOR) 3-05 by mouth Luke s 25 MG 20:29: daily. Medical tablet 27 [place] prasugr Yes 10mg QD Take [address] (EFFIENT) 3-05 by mouth Lukes 10 mg Tab 20:29: daily. Medica l tablet 27 [place] levothyroxi Yes 25ug Take [address] ne 3-05 mcg by Lukes (SYNTHROID, 20:29: mouth Medic al LEVOTHROID) 27 Every Center 25 MCG morning on tablet an empty stomach. losartan 2018-0 Yes 100mg QD Take [address] (COZAAR) 3-05 mg by Lukes 100 MG 20:29: mouth Medical tablet 27 daily. [place] metoprolol 0 Yes 50mg QD Take [address] (LOPRESSOR) 3-05 by mouth Luke s 25 MG 20:29: daily. Medical tablet 27 [place] prasugr 0 Yes 10mg QD Take [address] (EFFIENT) 3-05 by mouth Lukes 10 mg Tab 20:29: daily. Medica l tablet 27 [place] levothyroxi 0 Yes 25ug Take [address] ne 3-05 mcg by Lukes (SYNTHROID, 20:29: mouth Medic al LEVOTHROID) 27 Every Center 25 MCG morning on tablet an empty stomach. losartan 2019-0 Yes 100mg QD Take [address] (COZAAR) 3-05 mg by Lukes 100 MG 20:29: mouth Medical tablet 27 daily. [place] metoprolol Yes 50mg QD Take [address] (LOPRESSOR) 3-05 by mouth Luke s 25 MG 20:29: daily. Medical tablet 27 [place] prasugrel Yes 10mg QD Take [address] (EFFIENT) 3-05 by mouth Lukes 10 mg Tab 20:29: daily. Medica l tablet 27 [place] levothyroxi Yes 25ug Take [address] ne 3-05 mcg by Lukes (SYNTHROID, 20:29: mouth Medic al LEVOTHROID) 27 Every Center 25 MCG morning on tablet an empty stomach. losartan Yes 100mg QD Take [address] (COZAAR) 3-05 mg by Lukes 100 MG 20:29: mouth Medical tablet 27 daily. [place] metoprolol Yes 50mg QD Take [address] (LOPRESSOR) 3-05 by mouth Luke s 25 MG 20:29: daily. Medical tablet 27 [place] prasugrel Yes 10mg QD Take [address] (EFFIENT) 3-05 by mouth Lukes 10 mg Tab 20:29: daily. Medica l tablet 27 [place] levothyroxi Yes 25ug Take [address] ne 3-05 mcg by Lukes (SYNTHROID, 20:29: mouth Medic al LEVOTHROID) 27 Every Center 25 MCG morning on tablet an empty stomach. losartan Yes 100mg QD Take [address] (COZAAR) 3-05 mg by Lukes 100 MG 20:29: mouth Medical tablet 27 daily. [place] pentazocine 2015-04 Yes 1{tbl} Take 1 Un wilian -naloxone 0-27 tablet by ity o f (TALANGUS NX) 00:00: mouth [place] 50-0.5 mg 00 every 6 Medical tablet (six) Branch hours as needed for Pain. pentazocine 2015-04 Yes 1{tbl} Take 1 Un wilian -naloxone 0-27 tablet by ity o f (TALANGUS NX) 00:00: mouth [place] 50-0.5 mg 00 [...] mg 00:00: EVERY [place] tablet 00 SATURDAY [facility] alendronate Yes TAKE 1 Univ ers (FOSAMAX) 9-22 TABLET ity of 70 mg 00:00: EVERY tablet [facility] Aspirin Aspirin No Aspirin Alendronate Alendronate No [...] Tucker not Common Sodium Sodium [place] defined [facility] Metoprolol Metoprolol Yes [place] not C ommon Succinate Succinate [place] defined [facility] Atorvastati Atorvastati Yes [place] not Common n Calcium n Calcium [place] defined [facility] Losartan Losartan Yes Tucker not Commo n Potassium Potassium [place] defined [facility] Prasugrel Prasugrel Yes [place] not Com mon HCl HCl [place]illi[place] defined [facility] Aspirin Aspirin Yes Tucker not Common [place] defined [facility] Levothyroxi Levothyroxi Yes Tucker not Common ne Sodium ne Sodium [place]illiard defined [facility] Levothyroxi Levothyroxi No Levothyrox ne Sodium ne Sodium ine Sodium Eliquis Eliquis No Eliquis hydrALAZINE hydrALAZINE No hydrALAZIN HCl HCl E HCl NIFEdipine NIFEdipine No NIFEdipine Cyclobenzap Cyclobenzap No Cyclobenza rine HCl rine HCl ramon HCl Prasugrel Prasugrel No Prasugrel HCl HCl HCl Atorvastati Atorvastati No Atorvastat n Calcium n Calcium in Calcium Immunizations Ordered Immunization Filled Immunization Date Status Commen ts Source Name Name Preet FELIX-Jeri 2021-02-08 Completed Vaccine 00:00:00 Preet COVID-19 2021-02-08 Completed Vaccine 00:00:00 Preet COVID-19 2021-02-08 Completed Vaccine 00:00:00 Suea COVID-19 2020-05-06 Completed Vaccine 00:00:00 Moderna COVID-19 [...] 11:00:00 134 mm[Hg] Univer sity of pressure [facility] [place] [facility] Diastolic blood 2022-06-19 11:00:00 48 mm[Hg] Unive rsity of pressure [facility] [place] [facility] Heart rate 2022-06-19 11:00:00 54 /min [facility] Respiratory rate 2022-06-19 11:00:00 [facility] in 2022-06-19 11:00:00 96 /min [facility] Arterial blood by [facility] Pulse oximetry Branch Body temperature 2022-06-19 09:05:00 [facility].72 [facility] height 2021-12-14 08:00:00 67 [in_i] [facility] weight 2021-12-14 08:00:00 102 [lb_av] [facility] temperature 2021-12-14 08:00:00 97.2 [degF] [facility] bmi 2021-12-14 08:00:00 15.97 kg/m2 [facility] blood pressure 2021-12-14 08:00:00 110 mm[Hg] [facility] systolic [facility] blood pressure 2021-12-14 08:00:00 68 mm[Hg] [facility] - diastolic [facility] BP Systolic 2022-01-16 14:05:00 150 mm[Hg] [...] Procedure Date / Time Performed Performing Clinician Sourc e BASIC METABOLIC PANEL 2022-06-19 09:25:00 Mario Thompson [facility] (NA, K, CL, CO2, Medical Branch GLUCOSE, BUN, CREATININE, CA) CBC WITH DIFF 2022-06-19 09:25:00 Mario Thompson [facility] Plan of Care Planned Activity Planned Date [...] [facility]00 (1 of 1 [facility] [id number]) [code = PNEUMOCOCCAL 65+ YRS (1 of 1 - [id number])] Future Scheduled 2000-10-14 PNEUMOCOCCAL 65+ YRS [facility] Test 00:00:00 (1 of 1 [facility] [id number] [id number]) [code = PNEUMOCOCCAL 65+ YRS (1 of 1 - [id number])] Future Scheduled 2000-10-14 PNEUMOCOCCAL 65+ Y[facility] Test 00:00:00 ([address] [place] [address] [id number] PCV13) [code = PNEUMOCOCCAL 65+ YRS (1 of 1 - [id number] PCV13)] Future Scheduled 2000-10-14 PNEUMOCOCCAL 65+ YRS [facility] Test 00:00:00 (1 of 1 [facility] [id number] [id number]) [code = PNEUMOCOCCAL 65+ YRS (1 of 1 - [id number])] Future Scheduled 2000-10-14 PNEUMOCOCCAL 65+ YRS [facility] Test 00:00:00 (1 of 1 [facility] [id number] PCV13) [code = PNEUMOCOCCAL 65+ YRS (1 of 1 - [id number] PCV13)] Future Scheduled 2000-10-14 PNEUMOCOCCAL 65+ YRS [facility] Test 00:00:00 (1 of 1 [facility] [id number] PCV13) [code = PNEUMOCOCCAL 65+ YRS (1 of 1 - BHZC36_Rayetcg PCV13)] Future Scheduled 2000-10-14 PNEUMOCOCCAL 65+ YRS [facility] Test 00:00:00 ([address] [place] [address] QJZK64_Upshtgl PCV13) [code = PNEUMOCOCCAL 65+ YRS (1 of 1 - LNJS68_Efasljh PCV13)] Future Scheduled 2000-10-14 PNEUMOCOCCAL 65+ YRS [facility] Test 00:00:00 (1 of 1 [facility] AZTX71_Bgkzggp PCV13) [code = PNEUMOCOCCAL 65+ YRS (1 of 1 - BNWK77_Yvgnooo PCV13)] Future Scheduled 2000-10-14 PNEUMOCOCCAL 65+ YRS [facility] Test 00:00:00 ([address] [place] [address] AFCU58_Silmvkb PCV13) [code = PNEUMOCOCCAL 65+ YRS (1 of 1 - ASHJ26_Xlqmgew PCV13)] Future Scheduled 1985-10-14 SHINGLES VACCINES (1 [...] Goal Plan of Care Note [code = 49662-6] Goal Plan of Care Note [code = 57546-4] Goal Plan of Care Note [code = 80928-7] Goal Plan of Care Note [code = 44065-3] Goal Plan of Care Note [code = 14170-8] Goal Plan of Care Note [code = 24936-3] Goal Plan of Care Note [code = 73274-9] Goal Plan of Care Note [code = 34025-8] Goal Plan of Care Note [code = 21090-2] Goal Plan of Care Note [code = 87848-9] Goal Plan of Care Note [code = 01427-0] Goal Plan of Care Note [code = 08387-1] Goal Plan of Care Note [code = 41643-5] Goal Plan of Care Note [code = 93967-2] Goal Plan of Care Note [code = 04347-9] Goal Plan of Care Note [code = 22536-9] Goal Plan of Care Note [code = 45645-4] Goal Plan of Care Note [code = 46130-9] Goal Plan of Care Note [code = 48791-7] Goal Plan of Care Note [code = 39816-0] Goal Plan of Care Note [code = 81513-9] Goal Plan of Care Note [code = 03400-5] Goal Plan of Care Note [code = 60791-8] Goal Plan of Care Note [code = 41896-4] Goal Plan of Care Note [code = 57289-6] Goal Plan of Care Note [code = 27706-8] Goal Plan of Care Note [code = 84033-0] Goal Plan of Care Note [code = 42260-9] Goal Plan of Care Note [code = 50994-1] Goal Plan of Care Note [code = 34142-8] Goal Plan of Care Note [code = 86800-7] Goal Plan of Care Note [code = 43001-6] Goal Plan of Care Note [code = 80554-1] Goal Plan of Care Note [code = 98563-9] Goal Plan of Care Note [code = 19333-2] Goal Plan of Care Note [code = 63063-0] Goal Plan of Care Note [code = 08501-6] Goal Plan of Care Note [code = 71256-1] Goal Plan of Care Note [code = 95219-2] Goal Plan of Care Note [code = 59512-7] Goal Plan of Care Note [code = 64779-3] Goal Plan of Care Note [code = 83452-3] Goal Plan of Care Note [code = 46167-9] Goal Plan of Care Note [code = 67874-9] Goal Plan of Care Note [code = 71318-1] Goal Plan of Care Note [code = 55567-8] Goal Plan of Care Note [code = 08144-6] Goal Plan of Care Note [code = 70564-9] Goal Plan of Care Note [code = 59796-5] Goal Plan of Care Note [code = 38208-7] Goal Plan of Care Note [code = 43959-4] Goal Plan of Care Note [code = 68955-5] Goal Plan of Care Note [code = 64877-6] Goal Plan of Care Note [code = 06704-1] Goal Plan of Care Note [code = 76981-9] Goal Plan of Care Note [code = 18423-3] Goal Plan of Care Note [code = 00042-0] Goal Plan of Care Note [code = 24605-3] Goal Plan of Care Note [code = 57968-8] Goal Plan of Care Note [code = 81903-0] Goal Plan of Care Note [code = 92722-8] Goal Plan of Care Note [code = 50578-9] Goal Plan of Care Note [code = 15888-4] Goal Plan of Care Note [code = 94921-4] Goal Plan of Care Note [code = 47773-9] Goal Plan of Care Note [code = 69200-9] Goal Plan of Care Note [code = 41992-6] Goal Plan of Care Note [code = 22733-4] Goal Plan of Care Note [code = 83451-6] Goal Plan of Care Note [code = 10799-4] Goal Plan of Care Note [code = 18074-2] Goal Plan of Care Note [code = 19508-6] Goal Plan of Care Note [code = 68581-1] Goal Plan of Care Note [code = 46997-0] Goal Plan of Care Note [code = 87558-5] Goal Plan of Care Note [code = 68878-6] Goal Plan of Care Note [code = 47691-7] Goal Plan of Care Note [code = 90616-7] Goal Plan of Care Note [code = 44269-4] Goal Plan of Care Note [code = 71971-8] Goal Plan of Care Note [code = 38572-3] Goal Plan of Care Note [code = 24340-6] Goal Plan of Care Note [code = 18508-2] Goal Plan of Care Note [code = 21021-6] Goal Plan of Care Note [code = 78402-4] Goal Plan of Care Note [code = 94919-0] Goal Plan of Care Note [code = 89473-9] Goal Plan of Care Note [code = 65053-6] Goal Plan of Care Note [code = 28453-1] Goal Plan of Care Note [code = 11795-5] Encounters Start End Encounter Admission Attending Care Care Encounter Source Date/Time Date/Time Type Type Clinicians Facility Department ID 2021-12-14 Outpatient IAM [facility] [id number] - Common 08:02:01 [facility] AAKASHAKSHM - CH I I [facility] 2021-11-01 Outpatient [facility] [id number] Common 08:28:00 [facility] [place] 2021-05-10 Outpatient [facility] [id number] Common 14:37:15 [facility] [place] [facility] 2022-06-19 2022-06-19 Emergency X JOON, [facility] ERT [id number] Univers 03:01:00 05:29:00 MARIO hernández [facility] 2022-06-19 2022-06-19 Emergency Yarima, [facility] [id number] Univers 03:01:00 05:29:00 Mario TRIPLETT [id number] [facility] [id number] [facility] [id number] [facility] [address] 2022-06-06 2022-06-06 Outpatient SFA SFA [id number] [place] 15:21:28 15:21:28 0222 F Will 2022-04-26 2022-04-26 Outpatient SFA SFA [id number] 023 [place] 09:24:32 09:24:32 0112 F Will 2022-04-23 2022-04-23 Outpatient SFA SFA [id number] 023 [place] 15:40:31 15:40:31 0109 F Will 2022-01-16 2022-01-16 Outpatient SFA SFA [id number] 022 [place] 13:58:33 13:58:33 1004 F Will 2022-01-16 2022-01-16 Outpatient [id number] e9 [id number] 00:00:00 00:00:00 Visit 4eec-4016 eec-4016-8 -803c-5f9 03c-5f94ae 0tr32q822 10j895 2021-12-15 2021-12-15 (TEL) STLC STLC [id number] Co mmon 00:00:00 00:00:00 [facility] 2021-12-14 2021-12-14 NON-BILLAB STLMLC STLC [id number] Common 00:00:00 00:00:00 LE VISIT Spiri t [facility] 2021-12-12 2021-12-12 Outpatient [id number]- [id number] a0 2t0q95-z 00:00:00 00:00:00 Visit u9r6-75d4 7q5-03g1-m -c86a-l78 99a-c59f17 f87o6j1dr b8a9bd 2021-10-30 2021-10-30 Outpatient 2bc07l39- [id number] 8e e03d69-0 00:00:00 00:00:00 Visit 2b4l-8o7x c5x-9o2r-o -e192-303 [id number] 6177rc4xc 3fd9fb 2021-08-01 2021-08-01 Outpatient Ananda [facility] [id number] Univers 09:00:00 09:00:00 ROXY [id number] [facility] 2021-08-01 2021-08-01 [facility] [id number] Univers 09:00:00 09:00:00 ROXY [facility] 2021-07-01 2021-07-01 Outpatient HANSA HUNG [id number] [place] 00:00:00 00:00:00 YUE hernandez 2021-06-25 2021-06-25 Outpatient HANSA HUNG [id number] [place] 00:00:00 00:00:00 YUE hernandez 2020-10-03 2020-10-03 Telephone [facility] [id number] Univers 00:00:00 00:00:00 [facility] 350.1.13.10 it y of Surgical 4.2.7.2.686 Hi as Specialti [id number] [address] 2020-04-29 2020-04-29 [facility] [id number]-20 Univers 15:00:00 15:00:00 YESIKA [id number] [facility] 2020-04-29 2020-04-29 [facility] [id number] Univers 15:00:00 15:00:00 YESIKA [facility] 2018-11-06 2018-11-06 Out[facility] [id number] Common 11:00:00 11:00:00 [facility] 2018-10-09 2018-10-09 [id number] Common 10:30:00 10:30:00 [facility] Results Test Description Test Time Test Comments Results Result Comments Source CULTURE, URINE 2022-01-19 SPECIMEN NUMBER: 12:40:01 [id number] CULTURE, URINE SPECIMEN NUMBER: [id number] SPECIMEN COMMENT: URINE SOURCE: URINE REPORT STATUS: [...] MCG/ML. UNLESS OTHERWISE INDICATED, ALL TESTING PERFORMED [facility] [employer] [address] [place] [address] SUPERVISING LAW ENFORCEMENT ANALYST: KIESHA LEI M.D. CLIA NUMBER [id number] [place] [id number] CULTURE, URINE 2022-01-19 00:00:00 Test Item Value Reference Range Interpretation Comme nts CULTURE, URINE (test code = 50536) SPECIMEN NUMBER: [id number] CULTURE, [id number] 00:00:00 Test Item Value Reference Range Interpretation Comments CULTURE, URINE (test SPECIMEN NUMBER: code = 14384) [id number] COMPREHENSIVE METABOLIC [id number] 00:00:00 Test Item Value Reference Range Interpretation Comments GLUCOSE (test code = 2217) 123 MG/DL BUN (test code = 2208) 81 MG/DL CREATININE (test code = 2214) 5.82 MG/DL eGFR AMER. (test code = 7 ML/MIN/1.73 75452) eGFR (2020 CKD-EPI) (test code 6 ML/MIN/1.73 = 72637) CALC BUN/CREAT (test code = 14 RATIO [...] code = 2219) 12 U/L COMPREHENSIVE METABOLIC [id number] 00:00:00 Test Item Value Reference Range Interpretation Comments GLUCOSE (test code = 2217) 123 MG/DL BUN (test code = 2208) 81 MG/DL CREATININE (test code = 2214) 5.82 MG/DL eGFR AMER. (test code = 7 ML/MIN/1.73 21323) eGFR (2020 CKD-EPI) (test code 6 ML/MIN/1.73 = 69597) CALC BUN/CREAT (test code = 14 RATIO [...] code = 2219) 12 U/L COMPREHENSIVE METABOLIC [id number] 00:00:00 Test Item Value Reference Range Interpretation Comments GLUCOSE (test code = 2217) 123 MG/DL BUN (test code = 2208) 81 MG/DL CREATININE (test code = 2214) 5.82 MG/DL eGFR AMER. (test code = 7 ML/MIN/1.73 97376) eGFR (2020 CKD-EPI) (test code 6 ML/MIN/1.73 = 55824) CALC BUN/CREAT (test code = 14 RATIO [...] code = 2219) 12 U/L COMPREHENSIVE METABOLIC [id number] 00:00:00 Test Item Value Reference Range Interpretation Comments GLUCOSE (test code = 2217) 123 MG/DL BUN (test code = 2208) 81 MG/DL CREATININE (test code = 2214) 5.82 MG/DL eGFR AMER. (test code = 7 ML/MIN/1.73 10210) eGFR (2020 CKD-EPI) (test code 6 ML/MIN/1.73 = 22252) CALC BUN/CREAT (test code = 14 RATIO [...] code = 2219) 12 U/L COMPREHENSIVE METABOLIC [id number] 00:00:00 Test Item Value Reference Range Interpretation Comments GLUCOSE (test code = 2217) 123 MG/DL BUN (test code = 2208) 81 MG/DL CREATININE (test code = 2214) 5.82 MG/DL eGFR AMER. (test code = 7 ML/MIN/1.73 27476) eGFR (2020 CKD-EPI) (test code 6 ML/MIN/1.73 = 78187) CALC BUN/CREAT (test code = 14 RATIO [...] code = 2219) 12 U/L COMPREHENSIVE METABOLIC [id number] 00:00:00 Test Item Value Reference Range Interpretation Comments GLUCOSE (test code = 2217) 123 MG/DL BUN (test code = 2208) 81 MG/DL CREATININE (test code = 2214) 5.82 MG/DL eGFR AMER. (test code = 7 ML/MIN/1.73 97857) eGFR (2020 CKD-EPI) (test code 6 ML/MIN/1.73 = 23116) CALC BUN/CREAT (test code = 14 RATIO [...] code = 1.33 NG/DL 2823) CBC W/AUTO [id number] 00:00:00 Test Item Value Reference Range Interpretation [...] code = 1015) 297 K/UL CBC W/AUTO [id number] 00:00:00 Test Item Value Reference Range Interpretation [...] code = 1015) 297 K/UL CBC W/AUTO [id number] 00:00:00 Test Item Value Reference Range Interpretation [...] code = 1015) 297 K/UL COMPREHENSIVE METABOLIC [id number] 00:00:00 Test Item Value Reference Range Interpretation Comments GLUCOSE (test code = 2217) 92 MG/DL BUN (test code = 2208) 29 MG/DL CREATININE (test code = 2214) 1.53 MG/DL eGFR AMER. (test code 36 ML/MIN/1.73 = 33222) eGFR NON- AMER. (test 31 ML/MIN/1.73 code = 25724) CALC BUN/CREAT (test code = 19 RATIO [...] code = 2219) 18 U/L COMPREHENSIVE METABOLIC [id number] 00:00:00 Test Item Value Reference Range Interpretation Comments GLUCOSE (test code = 2217) 92 MG/DL BUN (test code = 2208) 29 MG/DL CREATININE (test code = 2214) 1.53 MG/DL eGFR AMER. (test code 36 ML/MIN/1.73 = 30820) eGFR NON- AMER. (test 31 ML/MIN/1.73 code = 73202) CALC BUN/CREAT (test code = 19 RATIO [...] ALT (test code = 2219) 18 U/L [id number] 00:00:00 Test Item Value Reference Range Interpretation Comments TSH, THIRD GENERATION (test code 3.330 UIU/ML = 2821) [id number] 00:00:00 Test Item Value Reference Range Interpretation Comments TSH, THIRD GENERATION (test code 3.330 UIU/ML = 2821) [id number] 00:00:00 Test Item Value Reference Range Interpretation [...] code = 1.33 NG/DL 2823) CBC W/AUTO [id number] 00:00:00 Test Item Value Reference Range Interpretation [...] code = 1015) 297 K/UL CBC W/AUTO [id number] 00:00:00 Test Item Value Reference Range Interpretation [...] code = 1015) 297 K/UL CBC W/AUTO [id number] 00:00:00 Test Item Value Reference Range Interpretation [...] code = 1015) 297 K/UL COMPREHENSIVE METABOLIC [id number] 00:00:00 Test Item Value Reference Range Interpretation Comments GLUCOSE (test code = 2217) 92 MG/DL BUN (test code = 2208) 29 MG/DL CREATININE (test code = 2214) 1.53 MG/DL eGFR AMER. (test code 36 ML/MIN/1.73 = 33244) eGFR NON- AMER. (test 31 ML/MIN/1.73 code = 20482) CALC BUN/CREAT (test code = 19 RATIO [...] code = 2219) 18 U/L COMPREHENSIVE METABOLIC [id number] 00:00:00 Test Item Value Reference Range Interpretation Comments GLUCOSE (test code = 2217) 92 MG/DL BUN (test code = 2208) 29 MG/DL CREATININE (test code = 2214) 1.53 MG/DL eGFR AMER. (test code 36 ML/MIN/1.73 = 11365) eGFR NON- AMER. (test 31 ML/MIN/1.73 code = 84911) CALC BUN/CREAT (test code = 19 RATIO [...] ALT (test code = 2219) 18 U/L [id number] 00:00:00 Test Item Value Reference Range Interpretation Comments TSH, THIRD GENERATION (test code 3.330 UIU/ML = 2821) [id number] 00:00:00 Test Item Value Reference Range Interpretation Comments TSH, THIRD GENERATION (test code 3.330 UIU/ML = 2821) [id number] 00:00:00 Test Item Value Reference Range Interpretation [...] code = 1.33 NG/DL 2823) CBC W/AUTO [id number] 00:00:00 Test Item Value Reference Range Interpretation [...] code = 1015) 297 K/UL CBC W/AUTO [id number] 00:00:00 Test Item Value Reference Range Interpretation [...] code = 1015) 297 K/UL CBC W/AUTO [id number] 00:00:00 Test Item Value Reference Range Interpretation [...] code = 1015) 297 K/UL COMPREHENSIVE METABOLIC [id number] 00:00:00 Test Item Value Reference Range Interpretation Comments GLUCOSE (test code = 2217) 92 MG/DL BUN (test code = 2208) 29 MG/DL CREATININE (test code = 2214) 1.53 MG/DL eGFR AMER. (test code 36 ML/MIN/1.73 = 38816) eGFR NON- AMER. (test 31 ML/MIN/1.73 code = 60766) CALC BUN/CREAT (test code = 19 RATIO 2235) SODIUM (test code = 2231) 142 MEQ/L POTASSIUM (test code = 2228) 5.2 MEQ/L CHLORIDE (test code = 2215) 109 MEQ/L CARBON DIOXIDE (test code = 20 MEQ/L 220) CALCIUM (test code = 2209) 9.3 MG/DL [...] code = 2219) 18 U/L COMPREHENSIVE METABOLIC [id number] 00:00:00 Test Item Value Reference Range Interpretation Comments GLUCOSE (test code = 2217) 92 MG/DL BUN (test code = 2208) 29 MG/DL CREATININE (test code = 2214) 1.53 MG/DL eGFR AMER. (test code 36 ML/MIN/1.73 = 93525) eGFR NON- AMER. (test 31 ML/MIN/1.73 code = 18867) CALC BUN/CREAT (test code = 19 RATIO 5) SODIUM (test code = 2231) 142 MEQ/L [...] ALT (test code = 2219) 18 U/L [id number] 00:00:00 Test Item Value Reference Range Interpretation Comments TSH, THIRD GENERATION (test code 3.330 UIU/ML = 2821) [id number] 00:00:00 Test Item Value Reference Range Interpretation Comments TSH, THIRD GENERATION (test code 3.330 UIU/ML = 2821) [id number] 00:00:00 Test Item Value Reference Range Interpretation Comments TSH, THIRD GENERATION (test code 3.330 UIU/ML = 2821) FREE T4 (THYROXINE)2020-02-02 00:00:00 Test Item Value Reference Range Interpretation Comments FREE T4 (THYROXINE) (test code = 1.33 NG/DL 2823) CALCIUM, [id number] 06:48:00 Test Item Value Reference Range Interpretation Comments CALCIUM IONIZED (BEAKER) (test 1.05 mmol/L 1.12-1.27 L code = 698) PH, BLOOD (BEAKER) (test code = 7.43 1810) [id number] 06:12:00 Test Item Value Reference Range Interpretation Comments PHOSPHORUS (BEAKER) (test code = 3.4 mg/dL 2.3-4.7 604) [id number] 06:12:00 Test Item Value Reference Range Interpretation Comments MAGNESIUM (BEAKER) (test code = 1.7 mg/dL 1.6-2.6 627) BASIC METABOLIC [id number] 06:12:00 Test Item Value Reference Range Interpretation [...] PATIEN TS. CBC W/PLT COUNT & AUTO [id number] 05:34:00 Test Item Value Reference Range Interpretation [...] code = 2801) MR, MRA, BRAIN, WITHOUT [id number] 10:59:00Reason for exam:->Ischemic Stroke EvaluationFINAL REPORT MRA Head CLINICAL HISTORY: Stroke TECHNIQUE: MRA of the head utilizing 3-D ssuz-px-pzqolk technique, with 3-D reconstructions. COMPARISON: None IMPRESSION: Allowing for mild motion degradation, there is no evidence for a council of [place] proximal branch vessel occlusion. Distal branch vessel occlusions cannot be excluded. Aneurysms cannot be excluded. MRA Neck CLINICAL HISTORY: Stroke TECHNIQUE: MRA of the neck utilizing 2-D and 3-D vmxe-qf-cgkirg technique, with 3-D reconstructions. COMPARISON: None IMPRESSION: Metallic shielding effect around the left carotid bifurcation is compatible with a stent. The left carotid artery is patent proximal and distal to the stent, but please note that in-stent stenosis cannot be excluded. There is 20% stenosis of the proximalright internal carotid artery by NASCET criteria. There is antegrade flow in the right vertebral artery. The proximal left vertebral artery is not visualized. The distal left cervical vertebral artery is discontinuous and threadlike, likely partially reconstituted by cervical muscular branches. Signed: Arianna Echevarria Verified Date/Time: 06/16/2018 10:59:34 Reading Location: [address] NeuroReading Room MR, MRA, NECK, WITHOUT IV [id number] 10:59:00Reason for exam:->Ischemic Stroke EvaluationFINAL REPORT MRA Head CLINICAL HISTORY: Stroke TECHNIQUE: MRA of the head utilizing 3-D xplj-rb-niuzom technique, with 3-D reconstructions. COMPARISON: None IMPRESSION: Allowing for mild motion degradation, there is no evidence for a [place] proximal branch vessel occlusion. Distal branch vessel occlusions cannot be excluded. Aneurysms cannot be excluded. MRA Neck CLINICAL HISTORY: Stroke TECHNIQUE: MRA of the neck utilizing 2-D and 3-D mmjd-po-hziucq technique, with 3-D reconstructions. COMPARISON: None IMPRESSION: [...] Echevarria Verified Date/Time: 06/16/2018 10:59:34 Reading Location: [address] Neuro Reading Room MR, BRAIN, WITHOUT [id number] 10:52:00Reason for exam:->Ischemic Stroke EvaluationFINAL REPORT MRI [...] MDReport Verified Date/Time: 06/16/2018 10:52:22 Reading Location: [facility] C013V Neuro Reading Room HEMOGLOBIN [id number] 09:43:00 Test Item Value Reference Range Interpretation Comments HEMOGLOBIN A1C (BEAKER) (test code = 5.9 % 4.3-6.1 368) VITAMIN [id number] 06:40:00 Test Item Value Reference Range Interpretation Comments VITAMIN B12 (BEAKER) (test code = 375 pg/mL 213-816 774) TSH/FREE T4 IF [id number] 05:45:00 Test Item Value Reference Range Interpretation Comments THYROID STIMULATING HORMONE 4.44 uIU/mL 0.35-4.94 (BEAKER) (test code = 772) LIPID [id number] 05:27:00 Test Item Value Reference Range Interpretation [...]
[2022-08-14] MEDS ORDERED: RSI MEDICATION KIT IV ONE (08:03)
[2022-08-14] MEDS ORDERED: NOREPINEPHRINE BITARTRATE/D5W 4 MG/250 ML BAG IV ONE (08:15)
[2022-08-14] MEDS ORDERED: NA CHLORIDE 0.9% 1,000 ML ONE (08:15)
--- NOTE | 2022-08-14 08:33 | RAD REPORT ---
EXAM DESCRIPTION: [place] Single View08/14/2022 8:25 am CLINICAL HISTORY: Device placement endotracheal tube placement IMPRESSION: An endotracheal tube has been inserted with its tip at the level of the top of the aorti c arch. Central venous catheter in place. Moderate alveolar opacity right lung probably pneumonia. This should be followed until it has cleared . Left lung appears grossly clear. Heart normal size. Small right pleural effusion
[2022-08-14 08:42] LABS: Absolute Lymphocytes (CBC) 2.4 K/uL (0.7-4.9); Hematocrit 33.6 % (36.0-45.0); Lymphocytes % 9.2 % (15.3-44.8); MCV 97.4 fL (80-100); RBC Red Blood Cell Count 3.45 M/uL (3.86-4.86)
[2022-08-14] MEDS ORDERED: VANCOMYCIN 1 GM/VIAL ONE (08:42)
[2022-08-14] MEDS ORDERED: NA CHLORIDE 0.9% 100 ML ONE (08:42)
[2022-08-14] MEDS ORDERED: NA CHLORIDE 0.9% 250 ML ONE (08:42)
[2022-08-14] MEDS ORDERED: CEFEPIME 2 GM VIAL ONE (08:42)
[2022-08-14 08:45] LABS: Protime INR 1.11
[2022-08-14] MEDS ORDERED: CEFEPIME 1 GM/VIAL ONE (08:57)
[2022-08-14] MEDS ORDERED: VANCOMYCIN 1 GM in NA CHLORIDE 0.9% 250 ML IVPB ONE (09:00)
[2022-08-14 09:06] LABS: Specific Gravity 1.015 (1.005-1.030); Urine Bilirubin NEGATIVE (Negative); Urine Blood 1+ (Negative); Urine Clarity Extremely Turbid (Clear); Urine Color Dark-Brown (Yellow); Urine Glucose TRACE (Negative); Urine Protein 2+ (Negative); Urine Urobilinogen Normal (Normal)
[2022-08-14 09:07] LABS: Urine Bacteria Loaded /HPF (<20); Urine RBC <5 /HPF (None Seen)
[2022-08-14 09:17] LABS: ALT/SGPT 213 U/L (13-56); AST/SGOT 262 U/L (15-37); Albumin 1.8 g/dL (3.4-5.0); Alkaline Phosphatase 143 U/L (45-117); BUN Blood Urea Nitrogen 37 mg/dL (7-18); Bicarbonate 27 mEq/L (21-32); Bilirubin Total 0.7 mg/dL (0.2-1.0); Glomerular Filtration Rate 14 ml/min (=/>90); Glucose Level 227 mg/dL (74-106); Potassium 3.5 mEq/L (3.5-5.1); Protein, Total 5.3 g/dL (6.4-8.2); Sodium Level 138 mEq/L (136-145)
[2022-08-14 09:18] LABS: NT PRO-BNP > 175000 pg/mL (<450)
[2022-08-14 09:25] LABS: Blood Morphology Comment NOTED (NOT SEEN); Ovalocytes 1+; Platelet Estimate ADEQ
[2022-08-14] MEDS ORDERED: D5 0.9 NS 1,000 ML IV ONE (10:06)
--- NOTE | 2022-08-14 10:09 | ER ---
Nurse's Notes [facility] Name: Isadora Jeffery Age: 86 yrs Sex: Female : 1935 Arrival Date: 08/14/2022 Time: 07:51 Bed 2 Private MD: Diagnosis: Cardiac arrest, cause unspecified;Acute respiratory failure;Pneumonia, unspecified organism;Severe sepsis with septic shock;UTI/ Urinary tract infection, site not specified;End stage renal disease Presentation: 08/14 07:53 Chief complaint: EMS states: pulse 96, BP 170/64, 76% RA, 60 % with NRB. Coronavirus ll1 screen: Vaccine status: Patient reports receiving the 2nd dose of the covid vaccine. Client denies travel out of the [place] in the last 14 days. congestion, cough unrelated to allergies, fatigue, Client presents with at least one sign or symptom that may indicate coronavirus-19. Standard/surgical mask placed on the client. Initial Sepsis Screen: Does the patient have a suspected source of infection? Yes: Productive cough/pneumonia Dysuria/Frequency/Urgency/UTI. 08:18 Chief complaint: EMS states: Unresponsive and SOB. 75% RA per facility. Crackles ll1 throughout. Ebola Screen: Patient denies travel to an Ebola-affected area in the 21 days before illness onset. Initial Sepsis Screen: Does the patient meet any 2 criteria?. Risk Assessment: Do you want to hurt yourself or someone else? Patient reports no desire to harm self or others. Onset of symptoms is unknown. 08:18 Method Of Arrival: EMS ll1 08:18 Acuity: ROMELIA 1 ll1 Triage Assessment: 07:55 General: Appears ill, Behavior is unresponsive. Pain: Denies pain. Neuro: Level of ll1 Consciousness is unresponsive. Respiratory: Airway is patent Trachea midline Respiratory effort is gasping, agonal Respiratory pattern is agonal hypoventilation. : Urine is cloudy. Historical: - Allergies: 08:17 Codeine; ll1 - PMHx: 08:17 Hypothyroidism; Hypertension; Dialysis; M-W-F; kidney disease; Hyperlipidemia; CVA; ll1 Depression; - PSHx: 08:17 Appendectomy; Total abdominal hysterectomy; Cholecystectomy; ll1 - Immunization history:: Client reports receiving the 2nd dose of the Covid vaccine. - Social history:: Smoking status: Patient denies any tobacco usage or history of. - Unable to obtain history due to: obtunded state. Screenin:15 [facility] ED Fall Risk Assessment (Adult) Intoxicated or Sedated Yes (3 pts) Impaired ll1 Gait Yes (1 pt) Mobility Assist Device Used Yes (1 pt) Score/Fall Risk Level 3 or more points = High Risk Oriented to surroundings, Maintained a safe environment, Educated pt \T\ family on fall prevention, incl call for assistance when getting out of bed, Hourly rounding (assess needs \T\ fall precautionary measures) done, Utilized family, sitter, or virtual neck skewer as indicated. Abuse screen: Denies threats or abuse. Nutritional screening: No deficits noted. Tuberculosis screening: No symptoms or risk factors identified. Assessment: 07:59 Reassessment: No changes from previously documented assessment. PEA rate 30. CPR ll1 initiated . 08:00 Reassessment: No changes from previously documented assessment. Intubated by Dr. De Dios, ll1 1 st attempt. 7.5 ET tube, 23 CM at teeth. Placement verified by O2 detector, auscultation, and X-ray. 08:02 Reassessment: 1 amp of Bicarb, glucose 68. CPR still in progress. ll1 08:03 Reassessment: 1 amp D50. Epinephrine 1 MG IV given. CPR still in progress. ll1 08:04 Reassessment: Pulse check, still in PEA. CPR resumed. ll1 08:06 Reassessment: No changes from previously documented assessment. Pulse check. + carotid ll1 and femoral pulse. 08:10 Reassessment: Norepinephrine drip started at .1 mcg/kg/min. ll1 08:13 Reassessment: No changes from previously documented assessment. Norepinephrine drip to ll1 .2 mcg/kg/min. 09:18 Reassessment: No changes from previously documented assessment. Patient and/or family ll1 updated on plan of care and expected duration. Pain level reassessed. 10:04 Reassessment: No changes from previously documented assessment. Patient and/or family ll1 updated on plan of care and expected duration. Pain level reassessed. 10:30 Reassessment: Norepinephrine drip lowered to .1 mcg/kg/min. ll1 11:00 Reassessment: No changes from previously documented assessment. Norepinephrine drip ll1 lowered to .05 mcg/kg/min. 11:10 Reassessment: No changes from previously documented assessment. Patient and/or family ll1 updated on plan of care and expected duration. Pain level reassessed. 12:00 Reassessment: No changes from previously documented assessment. Patient and/or family ll1 updated on plan of care and expected duration. Pain level reassessed. 12:41 Reassessment: No changes from previously documented assessment. Patient and/or family ll1 updated on plan of care and expected duration. Pain level reassessed. 13:25 Reassessment: No changes from previously documented assessment. Biting on tongue. Dr. wen De Dios and Charge Nurse Jessica informed. 13:35 Reassessment: No changes from previously documented assessment. got tongue back into ll1 mouth by slowly pushing it back in with each breathe. 14:02 Reassessment: No changes from previously documented assessment. Report given to Nohemy Scherer RN. Vital Signs: 07:57 Pulse 45; Resp 6; Pulse Ox 75% on Non-rebreather mask; ll1 08:00 BP 65 / 54; Pulse 132; Pulse Ox 76% ; ll1 08:10 BP 168 / 47; Pulse 86; Resp 20; Temp 99.9(R); Pulse Ox 100% on ETT vent; ll1 08:15 BP 168 / 58; Pulse 86; Resp 14; Pulse Ox 100% on ETT vent; ll1 08:18 Pulse 48; Resp 6; Pulse Ox 64% on Non-rebreather mask; Weight 39.46 kg; Pain 0/10; ll1 08:30 BP 160 / 61; Pulse 79; Resp 17; Pulse Ox 99% on ETT vent; ll1 08:40 Pulse 78; Resp 26; Pulse Ox 96% ; ll1 08:49 BP 158 / 58; Pulse 76; Resp 26; Pulse Ox 94% on ETT vent; ll1 09:43 BP 145 / 51; Pulse 71; Resp 22; Temp 97.9(TE); Pulse Ox 93% on ETT vent; ll1 10:04 BP 150 / 50; Pulse 75; Resp 21; Pulse Ox 94% on ETT vent; ll1 10:30 BP 166 / 58; Pulse 71; ll1 11:07 BP 167 / 55; Pulse 75; Resp 21; Pulse Ox 100% on ETT vent; ll1 11:24 BP 163 / 56; Pulse 75; Pulse Ox 98% ; ll1 12:00 BP 161 / 56; Pulse 75; Pulse Ox 95% ; ll1 12:30 BP 171 / 53; Pulse 87; Resp 24; Temp 98.4; Pulse Ox 96% ; ll1 12:41 BP 182 / 72; Pulse 103; Resp 25; Pulse Ox 95% on ETT vent; ll1 13:06 BP 175 / 62; Pulse 107; Resp 30; Pulse Ox 94% ; ll1 13:36 BP 158 / 65; Pulse 110; Resp 30; Pulse Ox 94% on ETT vent; ll1 14:02 BP 175 / 64; Pulse 110; Resp 30; Pulse Ox 94% on ETT vent; ll1 08:18 Pain Scale: Adult ll1 08:00 during CPR ll1 ED Course: 07:53 Patient arrived in ED. rn 07:54 Cleveland De Dios MD is Attending Physician. rn 08:10 Accessed R femoral 3 lumen Clean \T\ dry. Dressing intact. Good blood return. Flushes ll1 easily. 08:15 Gaffney cath inserted, using sterile technique, 16 Fr., by me, balloon inflated, 18 ll1 armenian OG inserted. Position confirmed by auscultation. OG to LIWS now. 08:19 Triage completed. ll1 08:27 Chest Single View XRAY In Process Unspecified. EDMS 08:49 Flu Sent. ll1 08:49 COVID-19 SARS RT PCR Sent. ll1 08:49 Blood Culture Adult (2) Sent. ll1 08:57 Jesenia Rivera, RN is Primary Nurse. ll1 09:17 Arm band placed on right wrist. Patient placed in an exam room, on a stretcher. ll1 09:18 Patient has correct armband on for positive identification. Call light in reach. Side ll1 rails up X2. Client placed on continuous cardiac and pulse oximetry monitoring. NIBP monitoring applied. monitor tech on. 10:07 Crystal Thorpe MD is Hospitalizing Provider. rn 11:00 IV discontinued, intact, bleeding controlled, No redness/swelling at site. Pressure ll1 dressing applied. 14:08 No provider procedures requiring assistance completed. ll1 Administered Medications: 08:10 Drug: Norepinephrine IV 0.1 mcg/kg/min Route: IV; Rate: calculated rate; Site: right ll1 forearm; 08:13 Follow up: Response: RASS: Light sedation (-2) ll1 14:01 Follow up: Response: No adverse reaction; IV Status: Order to discontinue infusion ll1 08:20 Drug: NS 0.9% IV 500 ml Route: IV; Rate: bolus; Site: right femoral; ll1 09:13 Follow up: Response: No adverse reaction; IV Status: Completed infusion; IV Intake: ll1 500ml 08:46 Drug: vancoMYCIN IVPB 1 grams Route: IVPB; Infused Over: 2 hrs; Site: right femoral; ll1 11:05 Follow up: IV Status: Completed infusion; IV Intake: 250ml ll1 10:04 Drug: D5-NS IV 1000 ml Route: IV; Rate: 75 ml/hr; Site: right antecubital; ll1 14:02 Follow up: IV Status: Order to discontinue infusion; IV Intake: 400ml ll1 11:05 Drug: Cefepime IVPB 1 grams Route: IVPB; Rate: 200 ml/hr; Infused Over: 30 mins; Site: ll1 right femoral; 14:01 Follow up: IV Status: Completed infusion; IV Intake: 100ml ll1 Medication: 09:17 VIS not applicable for this client. ll1 Intake: 09:13 IV: 500ml; Total: 500ml. ll1 11:05 IV: 250ml; Total: 750ml. ll1 14:01 IV: 100ml; Total: 850ml. ll1 14:02 IV: 400ml; Total: 1250ml. ll1 Output: 10:18 Urine: 50ml (Gaffney); Gastric: 30ml (OGT); Total: 80ml. ll1 Outcome: 10:08 Decision to Hospitalize by Provider. rn 14:09 Admitted to ICU accompanied by nurse, via stretcher, room ICU #1, with oxygen, with ll1 chart, Report called to Leena Courtney RN 14:09 critical 14:09 Instructed on the need for admit. 14:47 Patient left the ED. ll1 Signatures: Dispatcher [employer] EDMS Cleveland De Dios MD MD rn Smirch, Shelby, RN RN ss Lewis, Lynsay, RN RN ll1 Corrections: (The following items were deleted from the chart) 09:41 08:10 Temp 99.9F Rectal; ll1 ll1 09:44 09:43 BP 145 / 51; Pulse 71bpm; Pulse Ox 93% ET / Ventilator; [place] [id number] 10:04 09:18 Reassessment: No changes from previously documented assessment. Patient and/or 1 family updated on plan of care and expected duration. Pain level reassessed. Patient is alert, oriented x 3, equal unlabored respirations, skin warm/dry/pink. [facility] 10:22 08:44 vancoMYCIN IVPB 1 grams IVPB in right femoral over [address] [facility] 11:05 11:05 IV Status: Completed infusion; IV Intake: 1000ml [place] [id number]
--- NOTE | 2022-08-14 10:09 | EDPHYS ---
Physician Documentation [facility] Name: Isadora Jeffery Age: 86 yrs Sex: Female : 1935 Arrival Date: 08/14/2022 Time: 07:51 Bed 2 Private MD: ED Physician Cleveland De Dios HPI: 08/14 08:40 This 86 yrs old Female presents to ER via EMS with complaints of sob. rn 08:40 The patient has shortness of breath at rest. Onset: The symptoms/episode began/occurred rn at an unknown time. Duration: The symptoms are continuous. Severity of symptoms: At their worst the symptoms were severe in the emergency department the symptoms are worse. It is unknown whether or not the patient has had similar symptoms in the past. EMS reports low oxygen, unknown onset, noticed by intermediate this AM, with O2 sats in 70s. EMS got O2 sats in 50s, placed on oxygen, not intubated. EMS reports opened her eyes initially but no longer responding. . Historical: - Allergies: 08:17 Codeine; ll1 - PMHx: 08:17 Hypothyroidism; Hypertension; Dialysis; M-W-F; kidney disease; Hyperlipidemia; CVA; ll1 Depression; - PSHx: 08:17 Appendectomy; Total abdominal hysterectomy; Cholecystectomy; ll1 - Immunization history:: Client reports receiving the 2nd dose of the Covid vaccine. - Social history:: Smoking status: Patient denies any tobacco usage or history of. - Unable to obtain history due to: obtunded state. ROS: 08:40 Unable to obtain ROS due to obtunded state. rn Exam: 08:40 Constitutional: Thin female, GCS 3 Cardiovascular: No pulse Respiratory: Bilateral rn crackles, no spont resp effort Abdomen/GI: Soft, non-distended Skin: Cool, peripheral cyanosis MS/ Extremity: No pulses upon presentation Neuro: GCS 3 Vital Signs: 07:57 Pulse 45; Resp 6; Pulse Ox 75% on Non-rebreather mask; ll1 08:00 BP 65 / 54; Pulse 132; Pulse Ox 76% ; ll1 08:10 BP 168 / 47; Pulse 86; Resp 20; Temp 99.9(R); Pulse Ox 100% on ETT vent; ll1 08:15 BP 168 / 58; Pulse 86; Resp 14; Pulse Ox 100% on ETT vent; ll1 08:18 Pulse 48; Resp 6; Pulse Ox 64% on Non-rebreather mask; Weight 39.46 kg; Pain 0/10; ll1 08:30 BP 160 / 61; Pulse 79; Resp 17; Pulse Ox 99% on ETT vent; ll1 08:40 Pulse 78; Resp 26; Pulse Ox 96% ; ll1 08:49 BP 158 / 58; Pulse 76; Resp 26; Pulse Ox 94% on ETT vent; ll1 09:43 BP 145 / 51; Pulse 71; Resp 22; Temp 97.9(TE); Pulse Ox 93% on ETT vent; ll1 10:04 BP 150 / 50; Pulse 75; Resp 21; Pulse Ox 94% on ETT vent; ll1 10:30 BP 166 / 58; Pulse 71; ll1 11:07 BP 167 / 55; Pulse 75; Resp 21; Pulse Ox 100% on ETT vent; ll1 11:24 BP 163 / 56; Pulse 75; Pulse Ox 98% ; ll1 12:00 BP 161 / 56; Pulse 75; Pulse Ox 95% ; ll1 12:30 BP 171 / 53; Pulse 87; Resp 24; Temp 98.4; Pulse Ox 96% ; ll1 12:41 BP 182 / 72; Pulse 103; Resp 25; Pulse Ox 95% on ETT vent; ll1 13:06 BP 175 / 62; Pulse 107; Resp 30; Pulse Ox 94% ; ll1 13:36 BP 158 / 65; Pulse 110; Resp 30; Pulse Ox 94% on ETT vent; ll1 14:02 BP 175 / 64; Pulse 110; Resp 30; Pulse Ox 94% on ETT vent; ll1 08:18 Pain Scale: Adult ll1 08:00 during CPR 1 Procedures: 08:44 Intubation: Ventilated with 100% NRB prior to procedure. O2 saturation prior to furniture duster was 70 %. Intubated orally using # 4 Raina blade with 7.5 mm ETT. was successful on first attempt. Cricoid pressure applied during procedure. Tube secured with ETT esparza at right side of mouth measured 23 cm at teeth. Placement verified by CXR, CO2 detector with (+) color change, auscultating bilateral breath sounds, O2 saturation after procedure was 95 %. Patient tolerated well. Central Line: the site was prepped with in sterile fashion, a triple lumen catheter was inserted, in the right femoral vein, in 1 attempts. placement was verified, by blood return, the site was dressed with Tegaderm, using sterile technique, the patient tolerated the procedure, well. MDM: 07:54 Patient medically screened. rn 08:38 ED course: Full 30cc/kg bolus not given secondary to being dialysis, 500cc bolus given rn and levophed started. BP currently 160/61. Spoke with family, they state ok with what has been done, are thankful, and add that if she codes again, no resuscitation. . 09:16 ED course: Spoke at length with patient's family, they state now DNR, spoke to them rn about transfer given no ICU/medical record assistant here. They prefer not to be transferred. It seems that they are leaning towards withdrawal of care. Consulted with Dr. Thorpe, will consult and come speak with family regarding possibly , keeping her here given high mortality chance. . 10:07 Differential diagnosis: Anemia Bronchitis CHF exacerbation, Myocardial Infarction rn pneumonia, Pneumothorax pulmonary edema, Sepsis. Data reviewed: vital signs, nurses notes, lab test result(s), EKG, radiologic studies, plain films, and as a result, I will admit patient. Consideration of Admission/Observation Patient was admitted/placed on observation. Escalation of care including admission/observation considered. Management of patient was discussed with the following: Hospitalist: . I considered the following discharge prescriptions or medication management in the emergency department Medications were administered in the Emergency Department. See MAR. Counseling: I had a detailed discussion with the patient and/or guardian regarding: the historical points, exam findings, and any diagnostic results supporting the discharge/admit diagnosis, lab results, radiology results, the need for further work-up and treatment in the hospital. Response to treatment: the patient's symptoms have mildly improved after treatment, and as a result, I will admit patient. 11:07 ED course: Dr. Thorpe states spoke with family and will keep here. DNR.. rn 08/14 08:19 Order name: Blood Culture Adult (2) rn 08/14 08:19 Order name: CBC with Diff; Complete Time: :54 rn 08/14 08:19 Order name: CMP; Complete Time: :54 rn 08/14 08:19 Order name: Lactate w/ 2H reflex if indic.; Complete Time: 09:09 rn 08/14 08:19 Order name: Protime (+inr); Complete Time: 09:09 rn 08/14 08:19 Order name: Ptt, Activated; Complete Time: 09:09 rn 08/14 08:19 Order name: Urinalysis w/ reflexes; Complete Time: 09:09 rn 08/14 08:19 Order name: COVID-19 SARS RT PCR; Complete Time: 09:54 rn 08/14 08:19 Order name: Flu; Complete Time: 09:09 rn 08/14 08:19 Order name: BNP; Complete Time: 09:54 rn 08/14 08:45 Order name: Manual Differential; Complete Time: 09:54 EDMS 08/14 09:10 Order name: Urine Culture EDMS 08/14 09:21 Order name: ABG Arterial Blood Gas; Complete Time: 12:26 EDMS 08/14 11:34 Order name: CBC with Automated Diff EDMS 08/14 11:34 Order name: CBC with Automated Diff EDMS 08/14 11:34 Order name: Comprehensive Metabolic Panel EDMS 08/14 11:34 Order name: Comprehensive Metabolic Panel EDMS 08/14 11:34 Order name: Lactate w/ 2H reflex if indic. EDMS 08/14 11:34 Order name: Lactate w/ 2H reflex if indic. EDMS 08/14 11:34 Order name: Magnesium EDMS 08/14 11:34 Order name: Magnesium EDMS 08/14 11:34 Order name: NT PRO-BNP EDMS 08/14 11:34 Order name: NT PRO-BNP EDMS 08/14 11:34 Order name: Phosphorus EDMS 05/ 11:34 Order name: Phosphorus EDMS 08/14 11:34 Order name: Troponin High Sensitivity EDMS 08/14 11:34 Order name: Troponin High Sensitivity EDMS 08/14 11:34 Order name: Troponin High Sensitivity EDMS 05/ 11:34 Order name: Troponin High Sensitivity EDMS 05/ 12:03 Order name: Lactate Sepsis 2 HR Follow-up; Complete Time: 12:26 EDMS 08/14 08:19 Order name: Chest Single View XRAY; Complete Time: 08:37 rn 08/14 11:34 Order name: Chest For Pe Angio; Complete Time: 12:26 EDMS 08/14 11:34 Order name: Head Brain Wo Cont; Complete Time: 12:26 EDMS 08/14 08:19 Order name: EKG; Complete Time: 08:20 rn 08/14 11:34 Order name: CONS Physician Consult EDCT 08/14 11:34 Order name: NPO EDCT 08/14 08:19 Order name: Accucheck; Complete Time: 08:20 rn 08/14 08:19 Order name: Cardiac monitoring; Complete Time: 08:20 rn 08/14 08:19 Order name: EKG - Nurse/Tech; Complete Time: 08:20 rn 08/14 08:19 Order name: IV Saline Lock - Large Bore; Complete Time: 08:20 rn 08/14 08:19 Order name: Labs collected and sent; Complete Time: 08:20 rn 08/14 08:19 Order name: O2 Per Protocol; Complete Time: 08:20 rn 08/14 08:19 Order name: O2 Sat Monitoring; Complete Time: 08:20 rn 08/14 08:19 Order name: Vital Signs; Complete Time: 08:20 rn Administered Medications: 08:10 Drug: Norepinephrine IV 0.1 mcg/kg/min Route: IV; Rate: calculated rate; Site: right ll1 forearm; 08:13 Follow up: Response: RASS: Light sedation (-2) [facility] 14:01 Follow up: Response: No adverse reaction; IV Status: Order to discontinue infusion [facility] 08:20 Drug: NS 0.9% IV 500 ml Route: IV; Rate: bolus; Site: right femoral; 1 09:13 Follow up: Response: No adverse reaction; IV Status: Completed infusion; IV Intake: ll1 500ml 08:46 Drug: vancoMYCIN IVPB 1 grams Route: IVPB; Infused Over: 2 hrs; Site: right femoral; ll1 11:05 Follow up: IV Status: Completed infusion; IV Intake: 250ml [facility] 10:04 Drug: D5-NS IV 1000 ml Route: IV; Rate: 75 ml/hr; Site: right antecubital; ll1 14:02 Follow up: IV Status: Order to discontinue infusion; IV Intake: 400ml 1 11:05 Drug: Cefepime IVPB 1 grams Route: IVPB; Rate: 200 ml/hr; Infused Over: 30 mins; Site: ll1 right femoral; 14:01 Follow up: IV Status: Completed infusion; IV Intake: 100ml ll1 Disposition: 10:07 Critical Care:. rn Disposition Summary: 08/14/22 10:08 Hospitalization Ordered Hospitalization Status: Inpatient Admission rn Provider: Crystal Thorpe rn Location: Intensive Care Unit rn Condition: Serious rn Problem: new rn Symptoms: have improved rn Bed/Room Type: Standard rn Room Assignment: 1-(08/14/22 12:34) ss Diagnosis - Cardiac arrest, cause unspecified rn - Acute respiratory failure rn - Pneumonia, unspecified organism rn - Severe sepsis with septic shock rn - UTI/ Urinary tract infection, site not specified rn - End stage renal disease rn Forms: - Medication Reconciliation Form rn - SBAR form rn enterostomal time excluding procedures: 10:07 Critical care time: Bedside Care: 35 minutes, Family Intervention: 10 minutes. Total rn time: 45 minutes Signatures: Dispatcher [employer] EDCleveland Carter MD MD rn Smirch, Shelby, RN RN ss Lewis, Lynsay RN RN ll1 Corrections: (The following items were deleted from the chart) 12:34 10:08 rn ss
[2022-08-14] MEDS ORDERED: ACETAMINOPHEN 500 MG TAB PO PRN (11:28)
[2022-08-14] MEDS ORDERED: ONDANSETRON 4 MG/2 ML VIAL IV PRN (11:28)
[2022-08-14 11:32] LABS: Arterial Blood Carboxyhemoglob 1.4 % (0-1.5); Blood Gas Oxyhemoglobin 90.8 % (94-97); Blood O2 Saturation 93.5 % (92-98.5)
[2022-08-14] MEDS ORDERED: METHYLPREDNISOLONE 125 MG INJ IV SCH ×2 (12:00→21:00)
[2022-08-14] MEDS ORDERED: Levofloxacin 750mg IV 750 MG/150 ML BAG IV ONE (12:00)
--- NOTE | 2022-08-14 12:08 | RAD REPORT ---
EXAM DESCRIPTION: CT - Head Brain Wo Cont - 08/14/2022 12:01 pm CLINICAL HISTORY: Unresponsive COMPARISON: June 2022 TECHNIQUE: Computed axial tomography of the head was obtained. IV contrast was not requested. All CT scans are performed using dose optimization technique as appropriate and may include automated exposure control or mA/KV adjustment according to patient size. FINDINGS: An intracranial bleed is not seen The ventricles are normal in caliber No extra-axial fluid collection is noted. Mild to moderate low-density areas within periventricular, deep and subcortical white matter likely r epresent ischemic changes secondary to small vessel disease. Low-density left cerebrum consistent wit h old infarction IMPRESSION: No acute intracranial abnormality is seen If patient's symptoms persist MRI of the brain would be recommended
--- NOTE | 2022-08-14 12:21 | RAD REPORT ---
EXAM DESCRIPTION: CT - Chest For Pe Angio - 08/14/2022 12:00 pm CLINICAL HISTORY: Chest pain COMPARISON: 2020 TECHNIQUE: Dynamically enhanced axial 3 mm thick images of the chest were obtained during administra tion of 75 cc Isovue 370 IV contrast. Coronal and oblique reconstruction images were generated and re viewed. Exam utilizes a protocol for optimal evaluation of pulmonary arterial tree. Maximum intensity projections 3D imaging was utilized All CT scans are performed using dose optimization technique as appropriate and may include automated exposure control or mA/KV adjustment according to patient size. FINDINGS: A pulmonary embolus is not seen. A thoracic aortic aneurysm is not noted. Moderate to large right and small to moderate left pleural effusions. No pericardial effusion. 8.3 centimeter consolidation right upper lobe. Bibasilar atelectasis. Endotracheal and nasogastric tubes in good position IMPRESSION: Negative for a pulmonary embolism. Right upper lobe consolidation likely pneumonia Moderate to large right pleural effusion
--- NOTE | 2022-08-14 12:22 | P.HP ---
Certification for Inpatient Patient admitted to: Inpatient With expected LOS: >2 Midnights Patient will require the following post-hospital care: None Practitioner: I am a practitioner with admitting privileges, knowledge of patient current condition, hospital course, and medical plan of care. Services: Services provided to patient in accordance with Admission requirements found in Title 42 Section 412.3 of the Code of Federal Regulations Patient History Date of Service: 08/14/22 Reason for admission: ACUTE RESP FAILURE History of Present Illness: Patient is an 86-year-old female who came to the hospital with respiratory distress. Patient was short of breath and having difficulty breathing. By the time she arrived in the emergency room she was unresponsive and patient did not have a pulse so patient was started on CPR per ACLS protocol. They are able to get a pulse back and her blood pressure responded appropriately. Patient is currently breathing over the vent but she is not responding to commands. I have spoken with family and patient has a do not attempt resuscitation. If she is not significantly improved by tomorrow they would want to withdraw care. Currently she has been tested positive for the flu and we will continue with IV antibiotics as well as the Tamiflu along with nebs and steroids. We will consult nephrology for hemodialysis. Patient does have some pink frothy sputum which may be related to pulmonary edema. Plan as mentioned above but in the meantime she will be admitted to our intensive care unit. Allergies codeine Allergy (Severe, Verified 10/31/21 23:06) Nausea/Vomiting Home Medications: Prasugrel HCl 10 mg PO DAILY 11/02/21 Sevelamer Carbonate [Renvela*] 800 mg PO TIDWM 11/02/21 carvediloL [Coreg*] 12.5 mg PO BID 11/02/21 Losartan Potassium [Cozaar*] 50 mg PO BID 11/21/21 Aspirin Chewable [Aspirin Chewable*] 81 mg PO DAILY 06/26/22 Atorvastatin Calcium [Lipitor*] 20 mg PO BEDTIME 06/26/22 Furosemide [Lasix*] 40 mg PO BID 06/26/22 Melatonin [Melatonin*] 10 mg PO BEDTIME 06/26/22 Sertraline [Zoloft*] 100 mg PO DAILY AFTER SUPPER 06/26/22 Levothyroxine [Synthroid*] 0.05 mg PO DAILYAC 06/28/22 Acetaminophen [Pain Relief] 650 mg PO Q6H PRN 08/14/22 Ascorbic Acid [Vitamin C] 500 mg PO BID 08/14/22 Folic Acid/Vit B Complex and C [Tonya-Toney Tablet] 1 tab PO DAILY 08/14/22 Hydrocodone Bit/Acetaminophen [Hydrocodon-Acetaminoph 7.5-325] 1 tab PO Q12H PRN 08/14/22 Ipratropium/Albuterol Sulfate [Iprat-Albut 0.5-3(2.5) mg/3 ml] 3 ml IH Q6H PRN 08/14/22 Multivitamin with Minerals [Hair, Skin and Nails] 1 tab PO DAILY 08/14/22 Ondansetron [Zofran (Odt)*] 4 mg PO Q6H PRN 08/14/22 Prasugrel HCl 10 mg PO DAILY 08/14/22 Zinc Sulfate [Zinc Sulfate*] 220 mg PO DAILY 08/14/22 - Past Medical/Surgical History Diabetic: No -: Hypertension -: Hyperlipidemia -: History CVA -: Carotid arterial disease with prior stent -: CAD -: Hypothyroidism -: Chronic diastolic CHF -: Depression with anxiety -: Chronic pain -: ESRD on HD followed by Dr. Pablo -: Carotid stent -: Right partial hip replacement -: hysterectomy Psychosocial/ Personal History: Patient is a . She lives by herself. - Family History Father Medical History: Stroke Mother Medical History: Hypertension, Diabetes - Social History Smoking Status: Former smoker Alcohol use: No CD- Drugs: No Caffeine use: Yes Review of Systems is unable to be obtained Physical Examination - Vital Signs Temperature: 100 F Blood Pressure: 90/50 Pulse: 110 Respirations: 18 Pulse Ox (%): 95 - Physical Exam General: Unresponsive, Other (Intubated) HEENT: Atraumatic, Mucous membr. moist/pink, Other (pupils sluggish), Sclerae n onicteric Neck: Supple, 2+ carotid pulse no bruit, No LAD, Without JVD or thyroid abnormality Respiratory: Diminished, Crackles/rales Cardiovascular: Regular rate/rhythm, Normal S1 S2, Systolic murmur Gastrointestinal: Normal bowel sounds, Soft and benign, Non-distended, No tenderness Musculoskeletal: No clubbing, No swelling, No tenderness Integumentary: No rashes Neurological: Sensation intact, Abnormal gait, Abnormal strength Lymphatics: No axilla or inguinal lymphadenopathy - Studies Laboratory Data (last 24 hrs) 08/14/22 08:20: PT 12.2, INR 1.11, APTT 28.3 08/14/22 08:20: Sodium 138, Potassium 3.5, BUN 37 H, Creatinine 3.16 H, Glucose 227 H, Total Bilirubin 0.7, AST 262 H, ALT 213 H, Alkaline Phosphatase 143 H 08/14/22 08:20: WBC 25.60 H, Hgb 10.5 L, Hct 33.6 L, Plt Count 267 Microbiology Data (last 24 hrs): 08/14/22 08:31 Nasopharnyx Influenza Type A Antigen Screen - Final 08/14/22 08:31 Nasopharnyx Influenza Type B Antigen Screen - Final Assessment & Plan - Problems (Diagnosis) (1) Acute respiratory failure Current Visit: Yes Status: Acute (2) Influenzal pneumonia Current Visit: Yes Status: Acute (3) Flash pulmonary edema Current Visit: Yes Status: Acute (4) ESRD (end stage renal disease) on dialysis Current Visit: Yes Status: Acute (5) CAD (coronary artery disease) Current Visit: Yes Status: Acute (6) CVA (cerebral vascular accident) Current Visit: Yes Status: Acute - Plan Plan: 1. Continue with vent support 2. Vasopressor support as needed 3. Hemodialysis per nephrology 4. Nebs, steroids, and antibiotics along with Tamiflu 5. Strict blood pressure and blood sugar control 6. Patient is a do not attempt resuscitation 7. Possible withdrawal of care in the morning 8. GI DVT prophylaxis Discharge Plan: Home Plan to discharge in: Greater than 2 days - Advance Directives Does patient have a Living Will: No Does patient have a Durable POA for Healthcare: No - Code Status/Comfort Care Code Status Assessed: Yes Code Status: Do Not Attempt Resuscitat Critical Care: Yes Time Spent Managing PTS Care (In Minutes): 90
[2022-08-14] MEDS: DEXMEDETOMIDINE HCL 200 MCG in NA CHLORIDE 0.9% 98 ML IV SCH ×2 (13:24→21:23)
[2022-08-14] MEDS: FENTANYL CITR 100 MCG/2 ML IV PRN ×3 (13:25→21:47)
[2022-08-14] MEDS ORDERED: FENTANYL CITR 100 MCG/2 ML ONE (13:28)
[2022-08-14] MEDS: IPRATROPIUM BROM 0.5MG/2.5ML NEB SCH ×2 (14:00→20:00)
[2022-08-14] MEDS: ALBUTEROL 2.5 MG/3 ML NEB SOL NEB SCH ×2 (14:00→20:00)
[2022-08-14] MEDS ORDERED: ALBUTEROL 2.5 MG/3 ML NEB SOL ONE (14:17)
[2022-08-14 15:27] VITALS: BMI 17.4
[2022-08-14] MEDS ORDERED: OSELTAMIVIR 30 MG CAP PO ONE (16:00)
--- NOTE | 2022-08-14 16:05 | EKG ---
Test Date: 2022-08-14 Test Time: 08:11:16 Movie Extra: ALAN MEASUREMENT RESULTS: Intervals: Rate: 86 TX: 208 QRSD: 104 QT: 384 QTc: 459 [place]: P: 91 TX: 208 QRS: -86 T: 91 INTERPRETIVE STATEMENTS: Sinus rhythm with frequent premature ventricular complexes Incomplete right bundle branch block Left anterior fascicular block Septal infarct, age undetermined ST & T wave abnormality, consider lateral ischemia Abnormal ECG Compared to ECG 06/25/2022 06:18:50 Ventricular premature complex(es) now present Incomplete right bundle-branch block now present Left anterior fascicular block now present Myocardial infarct finding still present ST (T wave) deviation still present Possible ischemia still present Electronically Signed On 08-14-22 16:04:37 CDT by Donn Griffin
[2022-08-14] MEDS ORDERED: MANNITOL 25% 12.5 GM/50 ML VIAL IV PRN (16:50)
[2022-08-14] MEDS ORDERED: NA CHLORIDE 0.9% 1,000 ML IV PRN (16:50)
[2022-08-14] MEDS ORDERED: OSELTAMIVIR PHOSPHATE 30 MG/5 ML SUSPENSION UD PO SCH (17:00)
[2022-08-14] MEDS ORDERED: ALBUMIN HUMAN 25% 50 ML IV SCH (17:00)
[2022-08-14] MEDS: ALBUMIN HUMAN 25% 200 ML IV ONE ×2 (18:00→18:15)
[2022-08-14] MEDS ORDERED: NOREPINEPHRINE BITARTRATE/D5W 4 MG/250 ML BAG IV SCH (19:00)
[2022-08-14] MEDS ORDERED: ALBUMIN HUMAN 25% 200 ML IV ONE (19:00)
--- NOTE | 2022-08-14 19:29 | P.CNS ---
Date of Consult: 08/14/22 Reason for Consult: ESRD Requesting Physician: Crystal Thorpe Chief Complaint: ACUTE RESP FAILURE History of Present Illness: 86 yo WF ESRD, CHF presented to the ER unresponsive in the setting of respiratory failure. She was seen and examined on the ICU. She is unable to provide an HPI/ ROS due to AMS. 08:40 This 86 yrs old Female presents to ER via EMS with complaints of sob. rn 08:40 The patient has shortness of breath at rest. Onset: The symptoms/episode began/occurred rn at an unknown time. Duration: The symptoms are continuous. Severity of symptoms: At their worst the symptoms were severe in the emergency department the symptoms are worse. It is unknown whether or not the patient has had similar symptoms in the past. EMS reports low oxygen, unknown onset, noticed by long term this AM, with O2 sats in 70s. EMS got O2 sats in 50s, placed on oxygen, not intubated. EMS reports opened her eyes initially but no longer responding. 07:53 Chief complaint: EMS states: pulse 96, BP 170/64, 76% RA, 60 % with NRB. Coronavirus ll1 screen: Vaccine status: Patient reports receiving the 2nd dose of the covid vaccine. Client denies travel out of the [place] in the last 14 days. congestion, cough unrelated to allergies, fatigue, Client presents with at least one sign or symptom that may indicate coronavirus-19. Standard/surgical mask placed on the client. Initial Sepsis Screen: Does the patient have a suspected source of infection? Yes: Productive cough/pneumonia Dysuria/Frequency/Urgency/UTI. 08:18 Chief complaint: EMS states: Unresponsive and SOB. 75% RA per facility. Crackles ll1 throughout. Ebola Screen: Patient denies travel to an Ebola-affected area in the 21 days before illness onset. Initial Sepsis Screen: Does the patient meet any 2 criteria?. Risk Assessment: Do you want to hurt yourself or someone else? Patient reports no desire to harm self or others. Onset of symptoms is unknown. Allergies codeine Allergy (Severe, Verified 10/31/21 23:06) Nausea/Vomiting Home medications list reviewed: Yes Home Medications: Prasugrel HCl 10 mg PO DAILY 11/02/21 Sevelamer Carbonate [Renvela*] 800 mg PO TIDWM 11/02/21 carvediloL [Coreg*] 12.5 mg PO BID 11/02/21 Losartan Potassium [Cozaar*] 50 mg PO BID 11/21/21 Aspirin Chewable [Aspirin Chewable*] 81 mg PO DAILY 06/26/22 Atorvastatin Calcium [Lipitor*] 20 mg PO BEDTIME 06/26/22 Furosemide [Lasix*] 40 mg PO BID 06/26/22 Melatonin [Melatonin*] 10 mg PO BEDTIME 06/26/22 Sertraline [Zoloft*] 100 mg PO DAILY AFTER SUPPER 06/26/22 Levothyroxine [Synthroid*] 0.05 mg PO DAILYAC 06/28/22 Acetaminophen [Pain Relief] 650 mg PO Q6H PRN 08/14/22 Ascorbic Acid [Vitamin C] 500 mg PO BID 08/14/22 Folic Acid/Vit B Complex and C [Tonya-Toney Tablet] 1 tab PO DAILY 08/14/22 Hydrocodone Bit/Acetaminophen [Hydrocodon-Acetaminoph 7.5-325] 1 tab PO Q12H PRN 08/14/22 Ipratropium/Albuterol Sulfate [Iprat-Albut 0.5-3(2.5) mg/3 ml] 3 ml IH Q6H PRN 08/14/22 Multivitamin with Minerals [Hair, Skin and Nails] 1 tab PO DAILY 08/14/22 Ondansetron [Zofran (Odt)*] 4 mg PO Q6H PRN 08/14/22 Prasugrel HCl 10 mg PO DAILY 08/14/22 Zinc Sulfate [Zinc Sulfate*] 220 mg PO DAILY 08/14/22 - Past Medical/Surgical History Diabetic: No -: HTN -: HLD -: Hx CVA -: Carotid arterial disease with prior stent -: CAD -: Hypothyroidism -: Chronic Diastolic CHF -: Depression with anxiety -: Chronic pain -: ESRD on HD followed by Dr. Pablo -: Carotid stent -: Right partial hip replacement -: hysterectomy Psychosocial/ Personal History: Patient is a . She lives by herself. - Family History Father Medical History: Stroke Mother Medical History: Hypertension, Diabetes - Social History Smoking Status: Never smoker Alcohol use: No CD- Drugs: No Caffeine use: Yes Place of Residence: [facility] Review of Systems is unable to be obtained General: Weakness, Malaise Respiratory: Cough, Shortness of Breath, Sputum Cardiovascular: Edema Physical Examination Temp Pulse Resp BP Pulse Ox 98.4 F 91 H 30 H 157/57 H 97 08/14/22 12:30 08/14/22 18:00 08/14/22 18:00 08/14/22 18:00 08/14/22 18:00 General: Mild distress, Unresponsive HEENT: Atraumatic Neck: Supple Respiratory: Diminished Cardiovascular: Regular rate/rhythm, Edema Gastrointestinal: Soft and benign, Non-distended Musculoskeletal: No clubbing, No contractures Integumentary: No rashes, No cyanosis Neurological: Abnormal tone Urinary: Dialysis catheter Laboratory Data (last 24 hrs) 08/14/22 08:20: PT 12.2, INR 1.11, APTT 28.3 08/14/22 08:20: Sodium 138, Potassium 3.5, BUN 37 H, Creatinine 3.16 H, Glucose 227 H, Total Bilirubin 0.7, AST 262 H, ALT 213 H, Alkaline Phosphatase 143 H 08/14/22 08:20: WBC 25.60 H, Hgb 10.5 L, Hct 33.6 L, Plt Count 267 Imagings Data: EXAM DESCRIPTION: CT - Chest For Pe Angio - 08/14/2022 12:00 pm CLINICAL HISTORY: Chest pain COMPARISON: 2020 TECHNIQUE: Dynamically enhanced axial 3 mm thick images of the chest were obtained during administration of 75 cc Isovue 370 IV contrast. Coronal and oblique reconstruction images were generated and reviewed. Exam utilizes a protocol for optimal evaluation of pulmonary arterial tree. Maximum intensity projections 3D imaging was utilized All CT scans are performed using dose optimization technique as appropriate and may include automated exposure control or mA/KV adjustment according to patient size. FINDINGS: A pulmonary embolus is not seen. A thoracic aortic aneurysm is not noted. Moderate to large right and small to moderate left pleural effusions. No pericardial effusion. 8.3 centimeter consolidation right upper lobe. Bibasilar atelectasis. Endotracheal and nasogastric tubes in good position IMPRESSION: Negative for a pulmonary embolism. Right upper lobe consolidation likely pneumonia Moderate to large right pleural effusion EXAM DESCRIPTION: [place] Single View08/14/2022 8:25 am CLINICAL HISTORY: Device placement endotracheal tube placement IMPRESSION: An endotracheal tube has been inserted with its tip at the level of the top of the aortic arch. Central venous catheter in place. Moderate alveolar opacity right lung probably pneumonia. This should be followed until it has cleared. Left lung appears grossly clear. Heart normal size. Small right pleural effusion EXAM DESCRIPTION: CT - Head Brain Wo Cont - 08/14/2022 12:01 pm CLINICAL HISTORY: Unresponsive COMPARISON: June 2022 TECHNIQUE: Computed axial tomography of the head was obtained. IV contrast was not requested. All CT scans are performed using dose optimization technique as appropriate and may include automated exposure control or mA/KV adjustment according to patient size. FINDINGS: An intracranial bleed is not seen The ventricles are normal in caliber No extra-axial fluid collection is noted. Mild to moderate low-density areas within periventricular, deep and subcortical white matter likely represent ischemic changes secondary to small vessel disease. Low-density left cerebrum consistent with old infarction IMPRESSION: No acute intracranial abnormality is seen If patient's symptoms persist MRI of the brain would be recommended Conclusions/Impression: ESRD on HD -Acute HD ordered HTN with CKD/ CHF complicated by variable hypotension -Levophed as ordered Acute hypoxic respiratory failue due to PNA Diastolic CHF, A/C -Acute HD with UF as tolerated -Intubated; continue respiratory support Severe Protein Calorie Malnutrition Hypoalbuminemia Decreased functional ability -Albumin 50mg IV X2 -Start tube feeds as indicated Anemia in CKD -Start Retacrit CKD MBD -NPO Sepsis Lobar PNA Acute Cystitis? Toxic Metabolic Encephalopathy -Continue Abx -Follow up cultures Thank you kindly for the consultation
[2022-08-14] MEDS: METHYLPREDNISOLONE 125 MG INJ IV SCH (19:56)
[2022-08-14] MEDS: HEPARIN 5000 UNIT/ML 1 ML VIAL SQ SCH (21:00)
[2022-08-14] MEDS ORDERED: DIGOXIN 0.25 MG/ML AMP IV ONE (23:58)
[2022-08-15] MEDS: FENTANYL CITR 100 MCG/2 ML IV PRN ×5 (00:02→16:17)
[2022-08-15] MEDS: DEXMEDETOMIDINE HCL 200 MCG in NA CHLORIDE 0.9% 98 ML IV SCH ×3 (00:53→08:51)
[2022-08-15] MEDS: METOPROLOL TARTRATE 5 MG/5 ML INJ IV SCH ×4 (01:31→16:21)
[2022-08-15] MEDS: METHYLPREDNISOLONE 125 MG INJ IV SCH ×2 (02:00→08:17)
[2022-08-15] MEDS: ALBUTEROL 2.5 MG/3 ML NEB SOL NEB SCH ×3 (02:45→14:00)
[2022-08-15] MEDS: IPRATROPIUM BROM 0.5MG/2.5ML NEB SCH ×3 (02:45→14:00)
[2022-08-15] MEDS ORDERED: METOPROLOL TARTRATE 5 MG/5 ML INJ IV STA (03:13)
[2022-08-15] MEDS ORDERED: HYDROMORPHONE HCL 0.5 MG/0.5 ML INJ IV ONE (03:17)
[2022-08-15 05:07] LABS: Absolute Lymphocytes (CBC) 0.2 K/uL (0.7-4.9); Hematocrit 22.8 % (36.0-45.0); Lymphocytes % 2.5 % (15.3-44.8); MCV 94.9 fL (80-100); MPV 7.8 fL (7.6-11.3); RBC Red Blood Cell Count 2.41 M/uL (3.86-4.86)
[2022-08-15 05:32] LABS: ALT/SGPT 236 U/L (13-56); AST/SGOT 279 U/L (15-37); Albumin 3.2 g/dL (3.4-5.0); Alkaline Phosphatase 101 U/L (45-117); BUN Blood Urea Nitrogen 36 mg/dL (7-18); Bicarbonate 24 mEq/L (21-32); Bilirubin Total 1.9 mg/dL (0.2-1.0); Glomerular Filtration Rate 16 ml/min (=/>90); Glucose Level 81 mg/dL (74-106); Magnesium 1.7 mg/dL (1.6-2.4); Phosphorus 2.6 mg/dL (2.5-4.9); Potassium 3.1 mEq/L (3.5-5.1); Protein, Total 5.4 g/dL (6.4-8.2); Sodium Level 138 mEq/L (136-145)
[2022-08-15 05:33] LABS: NT PRO-BNP > 175000 pg/mL (<450)
[2022-08-15 05:34] LABS: Troponin High Sensitivity 2651.9 pg/mL (<58.9)
[2022-08-15] MEDS: HEPARIN 5000 UNIT/ML 1 ML VIAL SQ SCH (08:18)
--- NOTE | 2022-08-15 10:49 | P.PN ---
Nephrology note: (S) Pt seen in the ICU this AM on HD, BP better, not on pressor support, remains intubated and sedated with Precedex (O) Vitals reviewed in the EMR General: Intubated, sedated HEENT: Atraumatic, ET present Neck: Rt IJ TDC Respiratory: vent BS b/l, diminished at bases Cardiovascular:Non tachy, irregular Gastrointestinal: Soft and benign, Non-distended Musculoskeletal: Muscle mass loss, distal 1+ chronic b/l LE edema Integumentary: No rashes Neurological: Sedated so exam deferred Laboratory Data (last 24 hrs) Reviewed in the EMR Conclusions/Impression: ESRD on iHD MWF at [facility] -Partial HD yesterday, repeating gentle HD today for metab clearance and UF as tolerated. Hypokalemia, dialyzing with higher K bath GNR bacteremia, sepsis with shock -Possible urinary source vs PNA, f/u final cultures, off pressor support, limited UF Acute hypoxic respiratory failure due to PNA (unspecified organism) with Rt lobar consolidation/other, sepsis, other Pleural effusions, not classified -F/u cultures, cont Levaquin Abx, renally dosed. Vent management per primary team Anemia 2nd to acute and chronic illnesses -Sig drop in H/H although initial counts may have been hemoconcentrated or other, monitor closely Santos Escalona MD, JHOAN
[2022-08-15 12:27] LABS: Hepatitis B surface AG Interp. Nonreactive (Nonreactive)
[2022-08-15 12:28] LABS: Hepatitis B Surface Ab - Quant < 3.10 mIU/mL (<8.0)
[2022-08-15] MEDS ORDERED: LORazepam 2 MG/ML VIAL IV SCH (13:00)
[2022-08-15] MEDS ORDERED: LORazepam 2 MG/ML VIAL IV PRN (13:19)
[2022-08-15 15:37] VITALS: O2SAT 97
[2022-08-15 15:43] VITALS: BP 159/38
[2022-08-15 16:19] VITALS: TEMP 97.2
[2022-08-15] MEDS ORDERED: EPINEPHrine 1 MG/10 ML SYR IV ONE (16:28)
[2022-08-15] MEDS ORDERED: D50W 25 GM/50 ML SYRINGE IV ONE (16:28)
[2022-08-15] MEDS ORDERED: LIDOCAINE 100 MG/5 ML SYRINGE IV ONE (16:28)
--- NOTE | 2022-08-15 16:45 | P.PN ---
Subjective Date of Service: 08/15/22 Patient weaned off vasopressors. Wean off the ventilator. Family wants to withdraw care. We will go ahead and plan to extubate patient per her wishes on her living will. We will also sign paperwork for withdrawal of care. Family is all in agreement. May need to arrange for inpatient hospice. Review of Systems is unable to be obtained Physical Examination - Vital Signs Temperature: 97.2 F Blood Pressure: 159/38 Pulse: 73 Respirations: 19 Pulse Ox (%): 100 - Physical Exam General: Unresponsive Respiratory: Diminished Cardiovascular: Regular rate/rhythm, Normal S1 S2 Gastrointestinal: Normal bowel sounds, Soft and benign, Non-distended Musculoskeletal: No clubbing, No swelling Neurological: Abnormal gait, Abnormal speech, Abnormal strength - Studies Microbiology Data (last 24 hrs): 08/14/22 08:20 Blood - Blood Blood Culture Gram Stain - Final 08/14/22 08:20 Blood - Blood Gram Stain - Final 08/14/22 08:35 Blood - Blood Blood Culture Gram Stain - Final 08/14/22 08:35 Blood - Blood Gram Stain - Final Assessment & Plan - Problems (Diagnosis) (1) Acute respiratory failure Current Visit: Yes Status: Acute (2) Influenzal pneumonia Current Visit: Yes Status: Acute (3) Flash pulmonary edema Current Visit: Yes Status: Acute (4) ESRD (end stage renal disease) on dialysis Current Visit: Yes Status: Acute (5) CAD (coronary artery disease) Current Visit: Yes Status: Acute (6) CVA (cerebral vascular accident) Current Visit: Yes Status: Acute - Plan Plan: Continue with plan of care as mentioned below: 1. Extubate and withdrawal of care 2. Comfort measures 3. Hemodialysis per nephrology 4. Nebs, steroids, and antibiotics along with Tamiflu 5. Strict blood pressure and blood sugar control 6. Patient is a do not attempt resuscitation 7. Proceed with palliative care measures 8. GI DVT prophylaxis Discharge Plan: Other Plan to discharge in: Greater than 2 days - Advance Directives Does patient have a Living Will: No Does patient have a Durable POA for Healthcare: No - Code Status/Comfort Care Code Status: Do Not Attempt Resuscitat Critical Care: Yes Time Spent Managing PTS Care (In Minutes): 45
[2022-08-15] MEDS ORDERED: EPOETIN ALFA 10,000 UNIT/ML VIAL SQ SCH (17:00)
[2022-08-15] MEDS ORDERED: VANCOMYCIN 500 MG in NA CHLORIDE 0.9% 100 ML IVPB SCH (18:00)
[2022-08-15] MEDS ORDERED: OSELTAMIVIR 30 MG CAP PO SCH (18:00)
[2022-08-16] MEDS ORDERED: Levofloxacin500mg IV 500 MG/100 ML BAG IV SCH (12:00)
== END 2022-08-15 18:31 | disposition hospice, inpatient (51) | DRG 871 ==
LOC: ER 07:51 → ERHOLD 11:28 → 3RD-ICU 14:52
PROVIDERS: ADMIT Hospitalist; ATTEND Hospitalist
PROC: 5A1945Z Respiratory Ventilation, 24-96 Consecutive Hours (ICD-10-PCS; principal; 2022-08-14)
PROC: 0BH17EZ Insertion of Endotracheal Airway into Trachea, Via Natural or Artificial Opening (ICD-10-PCS; 2022-08-14)
PROC: 5A1D70Z Performance of Urinary Filtration, Intermittent, Less than 6 Hours Per Day (ICD-10-PCS; 2022-08-14)
PROC: 5A12012 Performance of Cardiac Output, Single, Manual (ICD-10-PCS; 2022-08-14)
DX: A41.89 Other specified sepsis (principal); E43 Unspecified severe protein-calorie malnutrition; I46.9 Cardiac arrest, cause unspecified; J96.01 Acute respiratory failure with hypoxia; N18.6 End stage renal disease; J10.00 Influenza due to other identified influenza virus with unspecified type of pneumonia; I50.33 Acute on chronic diastolic (congestive) heart failure; G92.8 Other toxic encephalopathy; R65.21 Severe sepsis with septic shock; N39.0 Urinary tract infection, site not specified; I13.2 Hypertensive heart and chronic kidney disease with heart failure and with stage 5 chronic kidney disease, or end stage renal disease; Z68.1 Body mass index [BMI] 19.9 or less, adult; E03.9 Hypothyroidism, unspecified; E78.5 Hyperlipidemia, unspecified; D63.8 Anemia in other chronic diseases classified elsewhere; D63.1 Anemia in chronic kidney disease; E87.6 Hypokalemia; E88.09 Other disorders of plasma-protein metabolism, not elsewhere classified; I25.10 Atherosclerotic heart disease of native coronary artery without angina pectoris; Z66 Do not resuscitate; Z60.2 Problems related to living alone; Z88.5 Allergy status to narcotic agent; Z99.2 Dependence on renal dialysis; Z86.73 Personal history of transient ischemic attack (TIA), and cerebral infarction without residual deficits; Z79.82 Long term (current) use of aspirin; Z90.49 Acquired absence of other specified parts of digestive tract; Z90.710 Acquired absence of both cervix and uterus; Z79.890 Hormone replacement therapy; Z79.899 Other long term (current) drug therapy; Z96.641 Presence of right artificial hip joint; Z87.891 Personal history of nicotine dependence; Z20.822 Contact with and (suspected) exposure to COVID-19
CPT/HCPCS: 31500; 36415; 51702; 70450; 71045; 71275; 80053; 80202; 81001; 81003; 82805; 82947; 83605; 83735; 83880; 84100; 84484; 85025; 85610; 85730; 86706; 87040; 87077; 87086; 87088; 87186; 87205; 87340; 87804; 90935; 93005; 94002; 94003; 94640; 99291; 99292; J0171; J0461; J0692; J1160; J1170; J1644; J2704; J2930; J3010; J7030; J7042; J7050; J7613; J7644; P9047; Q9967; U0003

== ENCOUNTER 2022-08-15 18:32 | Inpatient (IN) | payer OTHER ==
[2022-08-15 18:50] VITALS: BMI 17.4
--- OUTSIDE RECORDS SUMMARY | 2022-08-15 18:52 | XMS REPORT | Continuity of Care Document ---
:1935 Author Organization [facility] t Address [address] [place] [address] Care Team Providers Name Role Phone PARKER [...] Number Effective Date Expiration Date Haja LYNCH/JOSE [id number] 2022 MEDICARE 00:00:00 [facility]ANTAGE [facility] [id number] [facility] MEDICARE PART A [id number] \T\ B 00:00:00 MEDICARE-PART B 5 [id number] 2018 00:00:00 Problems Condition Condition Condition Status Onset Resolution Last Treating Co mments Source Name Details Category Date Date Treatment Clinician Date HTN HTN Disease Active 2019-[address] [facility] (hypertens (hypertens 3-04 Klaudia kes ion) ion) 00:00: Medical 00 [place] HLD HLD Disease Active [facility] (hyperlipi (hyperlipi 3-04 Klaudia kes demia) demia) 00:00: Medical 00 Center CAD CAD Disease Active [facility] (coronary (coronary 3-04 [place] [facility] artery artery 00:00: Medical disease) disease) 00 Center TIA TIA Disease Active [facility] (transient (transient 3-03 Klaudia kes ischemic ischemic 00:00: Medica l attack) attack) 00 [place] Hip Hip Disease Active 2015-04 [facility] fracture fracture 0-10 ity of 00:00: [address] Femur Femur Disease Active 2015-04 Univers fracture, fracture, 0-08 ity of right right 00:00: [address] [id number] Right Problem Active [facility] sciatic [facility] nerve pain - [facility] [id number] Closed Problem Active Common displaced [facility] intertroch - [facility] fracture kes of left Medical femur with Center routine healing, subsequent encounter [id number] [place] [address] left hip [facility] joint - [facility] [id number] 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 [facility] [id number] Thoracogen Problem Active Com mon ic Spirit scoliosis - [facility] of thoracic [facility] [id number] [place] of [place] [address] right hip [facility] joint pain - [facility] [id number] Scoliosis Problem Active Com mon of lumbar [facility] Med[facility] l of spine [...] 3-03 [facility] adverse 00:00: Medical reaction 00 [place] s CODEINE DRUG Active Hallucinates 2015-04 Uni vers INGREDI 0-08 ity of 00:00: [address] Branch Codeine Propensi Active Hallucinatio 2016-1 U nivers ty to ns 0-08 ity of adverse 00:00: [place] reaction 00 Medical s Branch codeine codeine Active Unknown [facility] Social History Social Habit Start Date Stop Date Quantity Comments Source History of [facility] - Tobacco Use [facility] History [facility] Alcohol Comment Medical C enter Exposure to 2022-06-09 2022-06-19 Not sure University of SARS-CoV-2 00:00:00 03:09:00 [place] Medical (event) Branch History [facility] 2018-06-16 2018-06-[address] [facility] Alcohol Frequency 00:00:00 00:00:[address] [facility] 2018-06-16 2018-06-[address] [facility] Alcohol Std 00:00:00 00:00:00 Medical Cente r Drinks History [facility] 2018-06-16 2018-06-[address] [facility] [...] Start Date Stop Date Source Never Smoker [facility] Medications Ordered Filled Start Stop Current Ordering [...] needed Spirit 00:00: - [facility] Tylenol 8 Tylenol 8 No 2{table TID [...] 25 MG 20:29: daily. Medical tablet 27 [place] prasugr Yes 10mg QD Take [address] (EFFIENT) 3-05 by mouth [facility] 10 mg Tab 20:29: daily. Medica l tablet 27 [place] levothyroxi Yes 25ug Take [address] ne 3-05 mcg by Lukes (SYNTHROID, 20:29: mouth Medic al LEVOTHROID) 27 Every Center 25 MCG morning on tablet an empty stomach. losartan Yes 100mg QD Take [address] (COZAAR) 3-05 mg by [facility]ukes 100 MG 20:29: mouth Medical tablet 27 daily. [place] metoprolol Yes 50mg QD Take [address] (LOPRESSOR) 3-05 by mouth Luke s 25 MG 20:29: daily. Medical tablet 27 [facility] Yes 10mg QD Take [address] (EFFIENT) 3-05 by mouth [facility] 10 mg Tab 20:29: daily. Medica l tablet 27 [place] levothyrox Yes 25ug Take [address] ne 3-05 mcg by Lukes (SYNTHROID, 20:29: mouth Medic al LEVOTHROID) 27 Every Center 25 MCG morning on tablet an empty stomach. losartan Yes 100mg QD Take [address] (COZAAR) 3-05 mg by [facility]ukes 100 MG 20:29: mouth Medical tablet 27 daily. [place] metoprolol Yes 50mg QD Take [address] (LOPRESSOR) 3-05 by mouth [facility] 25 MG 20:29: daily. Medical tablet 27 [place] prasugr 20190 Yes 10mg QD Take [address] (EFFIENT) 3-05 by mouth [facility] 10 mg Tab 20:29: daily. Medica l tablet 27 [place] levothyroxi 0 Yes 25ug Take [address] ne 3-05 mcg by Lukes (SYNTHROID, 20:29: mouth Medic al LEVOTHROID) 27 Every Center 25 MCG morning on tablet an empty stomach. losartan 2018-0 Yes 100mg QD Take [address] (COZAAR) 3-05 mg by [facility] 100 MG 20:29: mouth Medical tablet 27 daily. [place] metoprolol 0 Yes 50mg QD Take [address] (LOPRESSOR) 3-05 by mouth [facility] 25 MG 20:29: daily. Medical tablet 27 [place] prasugr 0 Yes 10mg QD Take [address] (EFFIENT) 3-05 by mouth [facility] 10 mg Tab 20:29: daily. Medica l tablet 27 [place] levothyroxi 0 Yes 25ug Take [address] ne 3-05 mcg by Lukes (SYNTHROID, 20:29: mouth Medic al LEVOTHROID) 27 Every Center 25 MCG morning on tablet an empty stomach. losartan 2018-0 Yes 100mg QD Take [address] (COZAAR) 3-05 mg by [facility]ukes 100 MG 20:29: mouth Medical tablet 27 daily. [place] metoprolol 0 Yes 50mg QD Take [address] (LOPRESSOR) 3-05 by mouth [facility] 25 MG 20:29: daily. Medical tablet 27 [place] prasugr 0 Yes 10mg QD Take [address] (EFFIENT) 3-05 by mouth [facility] 10 mg Tab 20:29: daily. Medica l tablet 27 [place] levothyroxi 0 Yes 25ug Take [address] ne 3-05 mcg by Lukes (SYNTHROID, 20:29: mouth Medic al LEVOTHROID) 27 Every Center 25 MCG morning on tablet an empty stomach. losartan 2019-0 Yes 100mg QD Take [address] (COZAAR) 3-05 mg by [facility]ukes 100 MG 20:29: mouth Medical tablet 27 daily. [place] metoprolol 2019-0 Yes 50mg QD Take [address] (LOPRESSOR) 3-05 by mouth [facility] 25 MG 20:29: daily. Medical tablet 27 [place] prasugr 0 Yes 10mg QD Take [address] (EFFIENT) 3-05 by mouth [facility] 10 mg Tab 20:29: daily. Medica l tablet 27 [place] levothyroxi 0 Yes 25ug Take [address] ne 3-05 mcg by Lukes (SYNTHROID, 20:29: mouth Medic al LEVOTHROID) 27 Every Center 25 MCG morning on tablet an empty stomach. losartan 2018-0 Yes 100mg QD Take [address] (COZAAR) 3-05 mg by [facility]ukes 100 MG 20:29: mouth Medical tablet 27 daily. [place] metoprolol 0 Yes 50mg QD Take [address] (LOPRESSOR) 3-05 by mouth [facility] 25 MG 20:29: daily. Medical tablet 27 [place] prasugr Yes 10mg QD Take [address] (EFFIENT) 3-05 by mouth [facility] 10 mg Tab 20:29: daily. Medica l tablet 27 [place] levothyroxi 0 Yes 25ug Take [address] ne 3-05 mcg by Lukes (SYNTHROID, 20:29: mouth Medic al LEVOTHROID) 27 Every Center 25 MCG morning on tablet an empty stomach. losartan 0 Yes 100mg QD Take [address] (COZAAR) 3-05 mg by [facility]ukes 100 MG 20:29: mouth Medical tablet 27 daily. [place] metoprolol 0 Yes 50mg QD Take [address] (LOPRESSOR) 3-05 by mouth [place] [facility] 25 MG 20:29: daily. Medical tablet 27 [place] prasugr 0 Yes 10mg QD Take [address] (EFFIENT) 3-05 by mouth [facility] 10 mg Tab 20:29: daily. Medica l tablet 27 [place] levothyroxi 0 Yes 25ug Take [address] ne 3-05 mcg by Lukes (SYNTHROID, 20:29: mouth Medic al LEVOTHROID) 27 Every Center 25 MCG morning on tablet an empty stomach. losartan 2018-0 Yes 100mg QD Take [address] (COZAAR) 3-05 mg by [facility]ukes 100 MG 20:29: mouth Medical tablet 27 daily. [place] metoprolol 0 Yes 50mg QD Take [address] (LOPRESSOR) 3-05 by mouth [facility] 25 MG 20:29: daily. Medical tablet 27 [place] prasugr 0 Yes 10mg QD Take [address] (EFFIENT) 3-05 by mouth [facility] 10 mg Tab 20:29: daily. Medica l tablet 27 [place] levothyroxi 0 Yes 25ug Take [address] ne 3-05 mcg by Lukes (SYNTHROID, 20:29: mouth Medic al LEVOTHROID) 27 Every Center 25 MCG morning on tablet an empty stomach. losartan 0 Yes 100mg QD Take [address] (COZAAR) 3-05 mg by [facility]ukes 100 MG 20:29: mouth Medical tablet 27 daily. [place] metoprolol Yes 50mg QD Take [address] (LOPRESSOR) 3-05 by mouth [facility] 25 MG 20:29: daily. Medical tablet 27 [facility] Yes 10mg QD Take [address] (EFFIENT) 3-05 by mouth [facility]ukes 10 mg Tab 20:29: daily. Medica l tablet 27 [place] levothyroxi Yes 25ug Take [address] ne 3-05 mcg by Lukes (SYNTHROID, 20:29: mouth Medic al LEVOTHROID) 27 Every Center 25 MCG morning on tablet an empty stomach. losartan 0 Yes 100mg QD Take [address] (COZAAR) 3-05 mg by [facility]ukes 100 MG 20:29: mouth Medical tablet 27 daily. [place] metoprolol 0 Yes 50mg QD Take [address] (LOPRESSOR) 3-05 by mouth [facility] 25 MG 20:29: daily. Medical tablet 27 [place] prasugr 0 Yes 10mg QD Take [address] (EFFIENT) 3-05 by mouth [facility] 10 mg Tab 20:29: daily. Medica l tablet 27 [place] levothyroxi 0 Yes 25ug Take [address] ne 3-05 mcg by Lukes (SYNTHROID, 20:29: mouth Medic al LEVOTHROID) 27 Every Center 25 MCG morning on tablet an empty stomach. losartan 2018-0 Yes 100mg QD Take [address] (COZAAR) 3-05 mg by [facility]ukes 100 MG 20:29: mouth Medical tablet 27 daily. [place] metoprolol 0 Yes 50mg QD Take [address] (LOPRESSOR) 3-05 by mouth [facility] 25 MG 20:29: daily. Medical tablet 27 [place] prasugr 2019-0 Yes 10mg QD Take [address] (EFFIENT) 3-05 by mouth [facility] 10 mg Tab 20:29: daily. Medica l tablet 27 [place] levothyroxi 0 Yes 25ug Take [address] ne 3-05 mcg by Lukes (SYNTHROID, 20:29: mouth Medic al LEVOTHROID) 27 Every Center 25 MCG morning on tablet an empty stomach. losartan 2019-0 Yes 100mg QD Take [address] (COZAAR) 3-05 mg by [facility]ukes 100 MG 20:29: mouth Medical tablet 27 daily. [place] metoprolol 2019-0 Yes 50mg QD Take [address] (LOPRESSOR) 3-05 by mouth [facility] 25 MG 20:29: daily. Medical tablet 27 [facility] 0 Yes 10mg QD Take [address] (EFFIENT) 3-05 by mouth [facility]ukes 10 mg Tab 20:29: daily. Medica l tablet 27 [place] levothyroxi 0 Yes 25ug Take [address] ne 3-05 mcg by Lukes (SYNTHROID, 20:29: mouth Medic al LEVOTHROID) 27 Every Center 25 MCG morning on tablet an empty stomach. losartan 2018-0 Yes 100mg QD Take [address] (COZAAR) 3-05 mg by [facility]ukes 100 MG 20:29: mouth Medical tablet 27 daily. [place] metoprolol 2018-0 Yes 50mg QD Take [address] (LOPRESSOR) 3-05 by mouth [facility] 25 MG 20:29: daily. Medical tablet 27 [place] prasugr 2018-0 Yes 10mg QD Take [address] (EFFIENT) 3-05 by mouth [facility] 10 mg Tab 20:29: daily. Medica l tablet 27 [place] levothyroxi 20190 Yes 25ug Take [address] ne 3-05 mcg by Lukes (SYNTHROID, 20:29: mouth Medic al LEVOTHROID) 27 Every Center 25 MCG morning on tablet an empty stomach. losartan 2019-0 Yes 100mg QD Take [address] (COZAAR) 3-05 mg by Lukes 100 MG 20:29: mouth Medical tablet 27 daily. [place] metoprolol 2019-0 Yes 50mg QD Take [address] (LOPRESSOR) 3-05 by mouth [facility] 25 MG 20:29: daily. Medical tablet 27 [place] prasugr 2019-0 Yes 10mg QD Take [address] (EFFIENT) 3-05 by mouth [facility] 10 mg Tab 20:29: daily. Medica l tablet 27 [place] levothyroxi 2019-0 Yes 25ug Take [address] ne 3-05 mcg by Lukes (SYNTHROID, 20:29: mouth Medic al LEVOTHROID) 27 Every Center 25 MCG morning on tablet an empty stomach. losartan 2019-0 Yes 100mg QD Take [address] (COZAAR) 3-05 mg by [facility]ukes 100 MG 20:29: mouth Medical tablet 27 daily. [place] metoprolol 0 Yes 50mg QD Take [address] (LOPRESSOR) 3-05 by mouth [facility] 25 MG 20:29: daily. [facility] [address] (EFFIENT) 3-05 by mouth [facility] 10 mg Tab 20:29: daily. Medica l tablet 27 [place] levothyroxi 0 Yes 25ug Take [address] ne 3-05 mcg by Lukes (SYNTHROID, 20:29: mouth Medic al LEVOTHROID) 27 Every Center 25 MCG morning on tablet an empty stomach. losartan 2018-0 Yes 100mg QD Take [address] (COZAAR) 3-05 mg by Lukes 100 MG 20:29: mouth Medical tablet 27 daily. [place] metoprolol 2019-0 Yes 50mg QD Take [address] (LOPRESSOR) 3-05 by mouth [place] [facility] 25 MG 20:29: daily. Medical tablet 27 [place] prasugrel 2018-0 Yes 10mg QD Take [address] (EFFIENT) 3-05 by mouth [facility] 10 mg Tab 20:29: daily. Medica l tablet 27 [place] metoprolol 2019-0 Yes 50mg QD Take [address] (LOPRESSOR) 3-05 by mouth [place] [facility] 25 MG 20:29: daily. Medical tablet 27 [place] levothyroxi 2019-0 Yes 25ug Take [address] ne 3-05 mcg by Lukes (SYNTHROID, 20:29: mouth Medic al LEVOTHROID) 27 Every Center 25 MCG morning on tablet an empty stomach. losartan 2019- Yes 100mg QD Take [address] (COZAAR) 3-05 mg by [facility]ukes 100 MG 20:29: mouth Medical tablet 27 daily. [place] prasugrel 2019-0 Yes 10mg QD Take [address] (EFFIENT) 3-05 by mouth [facility] 10 mg Tab 20:29: daily. Medica l tablet 27 [place] levothyroxi 0 Yes 25ug Take [address] ne 3-05 mcg by Lukes (SYNTHROID, 20:29: mouth Medic al LEVOTHROID) 27 Every Center 25 MCG morning on tablet an empty stomach. losartan 2018-0 Yes 100mg QD Take [address] (COZAAR) 3-05 mg by [facility]ukes 100 MG 20:29: mouth Medical tablet 27 daily. [place] metoprolol 0 Yes 50mg QD Take [address] (LOPRESSOR) 3-05 by mouth [facility] 25 MG 20:29: daily. Medical tablet 27 [place] prasugr Yes 10mg QD Take [address] (EFFIENT) 3-05 by mouth [facility] 10 mg Tab 20:29: daily. Medica l tablet 27 [place] levothyroxi 0 Yes 25ug Take [address] ne 3-05 mcg by Lukes (SYNTHROID, 20:29: mouth Medic al LEVOTHROID) 27 Every Center 25 MCG morning on tablet an empty stomach. losartan 2018-0 Yes 100mg QD Take [address] (COZAAR) 3-05 mg by [facility]ukes 100 MG 20:29: mouth Medical tablet 27 daily. [place] metoprolol 0 Yes 50mg QD Take [address] (LOPRESSOR) 3-05 by mouth [place] [facility] 25 MG 20:29: daily. Medical tablet 27 [place] prasugrel 0 Yes 10mg QD Take [address] (EFFIENT) 3-05 by mouth [facility] 10 mg Tab 20:29: daily. Medica l tablet 27 [place] levothyroxi 0 Yes 25ug Take [address] ne 3-05 mcg by Lukes (SYNTHROID, 20:29: mouth Medic al LEVOTHROID) 27 Every Center 25 MCG morning on tablet an empty stomach. losartan 2018-0 Yes 100mg QD Take [address] (COZAAR) 3-05 mg by [facility]ukes 100 MG 20:29: mouth Medical tablet 27 daily. [place] metoprolol 20190 Yes 50mg QD Take [address] (LOPRESSOR) 3-05 by mouth [place] [facility] 25 MG 20:29: daily. Medical tablet 27 [place] prasugrel 0 Yes 10mg QD Take [address] (EFFIENT) 3-05 by mouth [facility] 10 mg Tab 20:29: daily. Medica l tablet 27 [place] levothyroxi 0 Yes 25ug Take [address] ne 3-05 mcg by Lukes (SYNTHROID, 20:29: mouth Medic al LEVOTHROID) 27 Every Center 25 MCG morning on tablet an empty stomach. losartan 2018-0 Yes 100mg QD Take [address] (COZAAR) 3-05 mg by [facility]ukes 100 MG 20:29: mouth Medical tablet 27 daily. [place] metoprolol 0 Yes 50mg QD Take [address] (LOPRESSOR) 3-05 by mouth [facility] 25 MG 20:29: daily. Medical tablet 27 [place] prasugr Yes 10mg QD Take [address] (EFFIENT) 3-05 by mouth [facility] 10 mg Tab 20:29: daily. Medica l tablet 27 [place] levothyroxi Yes 25ug Take [address] ne 3-05 mcg by Lukes (SYNTHROID, 20:29: mouth Medic al LEVOTHROID) 27 Every Center 25 MCG morning on tablet an empty stomach. losartan 2018-0 Yes 100mg QD Take [address] (COZAAR) 3-05 mg by [facility]ukes 100 MG 20:29: mouth Medical tablet 27 daily. [place] metoprolol 0 Yes 50mg QD Take [address] (LOPRESSOR) 3-05 by mouth [facility] 25 MG 20:29: daily. Medical tablet 27 [place] prasugr 0 Yes 10mg QD Take [address] (EFFIENT) 3-05 by mouth [facility] 10 mg Tab 20:29: daily. Medica l tablet 27 [place] levothyroxi 0 Yes 25ug Take [address] ne 3-05 mcg by Lukes (SYNTHROID, 20:29: mouth Medic al LEVOTHROID) 27 Every Center 25 MCG morning on tablet an empty stomach. losartan 2019-0 Yes 100mg QD Take [address] (COZAAR) 3-05 mg by [facility]ukes 100 MG 20:29: mouth Medical tablet 27 daily. [place] metoprolol 2019-0 Yes 50mg QD Take [address] (LOPRESSOR) 3-05 by mouth [place] [facility] 25 MG 20:29: daily. Medical tablet 27 [place] prasugr 0 Yes 10mg QD Take [address] (EFFIENT) 3-05 by mouth [facility] 10 mg Tab 20:29: daily. Medica l tablet 27 [place] levothyroxi 0 Yes 25ug Take [address] ne 3-05 mcg by Lukes (SYNTHROID, 20:29: mouth Medic al LEVOTHROID) 27 Every Center 25 MCG morning on tablet an empty stomach. losartan 2018-0 Yes 100mg QD Take [address] (COZAAR) 3-05 mg by [facility] 100 MG 20:29: mouth Medical tablet 27 daily. [place] metoprolol 0 Yes 50mg QD Take [address] (LOPRESSOR) 3-05 by mouth [facility] 25 MG 20:29: daily. Medical tablet 27 [place] [facility] 10[facility] QD Take [address] (EFFIENT) 3-05 by mouth [facility] 10 mg Tab 20:29: daily. Medica l tablet 27 [place] levothyroxi 0 Yes 25ug Take [address] ne 3-05 mcg by Lukes (SYNTHROID, 20:29: mouth Medic al LEVOTHROID) 27 Every Center 25 MCG morning on tablet an empty stomach. losartan 2018-0 Yes 100mg QD Take [address] (COZAAR) 3-05 mg by [facility] 100 MG 20:29: mouth Medical tablet 27 daily. [place] metoprolol 2018-0 Yes 50mg QD Take [address] (LOPRESSOR) 3-05 by mouth [facility] 25 MG 20:29: daily. Medical tablet 27 [place] prasugr 0 Yes 10mg QD Take [address] (EFFIENT) 3-05 by mouth [facility] 10 mg Tab 20:29: daily. Medica l tablet 27 [place] levothyroxi 0 Yes 25ug Take [address] ne 3-05 mcg by Lukes (SYNTHROID, 20:29: mouth Medic al LEVOTHROID) 27 Every Center 25 MCG morning on tablet an empty stomach. losartan 2018-0 Yes 100mg QD Take [address] (COZAAR) 3-05 mg by [facility] 100 MG 20:29: mouth Medical tablet 27 daily. [place] pentazocine 2015-04 Yes 1{tbl} Take 1 Un [...] mouth ity of XL (TOPROL 13:56: daily. [place] XL) 50 mg 53 Medical 24 hr [...] mg 00:00: EVERY [place] tablet 00 SATURDAY [facility] Branch alendronate Yes TAKE 1 Univ ers (FOSAMAX) 9-22 TABLET ity of 70 mg 00:00: EVERY [place] tablet 00 SATURDAY Medical Branch Aspirin Aspirin No Aspirin Alendronate Alendronate No [...] Tucker not Common Sodium Sodium Hilliard defined [facility] Metoprolol Metoprolol Yes [place] not C ommon Succinate Succinate Hilliard defined [facility] Atorvastati Atorvastati Yes [place] not Common n Calcium n Calcium Hilliard defined [facility] Losartan Losartan Yes [place] not Commo n Potassium Potassium Hilliard defined [facility] Prasugrel Prasugrel Yes [place] not Com mon HCl HCl Hilliard defined [facility] Aspirin Aspirin Yes [place] not Common Hilliard defined [facility] Levothyroxi Levothyroxi Yes [place] not Common ne Sodium ne Sodium Hilliard defined [facility] Levothyroxi Levothyroxi No Levothyrox ne [...] Status Commen ts Source Name Name Preet EPSTEINID-19 2021-02-08 Completed Vaccine 00:00:00 Suea COVID-19 2021-02-08 Completed Vaccine 00:00:00 Moderna COVID-19 2021-02-08 Completed Vaccine 00:00:00 Moderna COVID-19 2020-05-06 Completed Vaccine 00:00:00 Moderna COVID-19 2020-05-06 Completed Vaccine 00:00:00 Suea COVID-19 2020-05-06 Completed Vaccine 00:00:00 Influenza, seasonal, 2020-01-18 Completed inj 00:00:00 Influenza, seasonal, 2020-01-18 Completed inj 00:00:00 Influenza, seasonal, 2020-01-18 Completed inj 00:00:00 Preet COVID-19 Unknown Completed Vaccine Moderna COVID-19 Unknown Completed Vaccine Moderna COVID-19 Unknown Completed Vaccine Vital Signs Vital Name Observation Time Observation Value Comments Source Systolic blood 2022-06-19 11:00:00 134 mm[Hg] [facility] Diastolic blood 2022-06-19 11:00:00 48 mm[Hg] [facility]ive [facility] Heart rate 2022-06-19 11:00:00 54 /min [facility] Respiratory rate 2022-06-19 11:00:00 21 /min [facility] Oxygen saturation in 2022-06-19 11:00:00 96 /min [facility] Arterial blood by [facility] Pulse oximetry [place] Body temperature 2022-06-19 09:05:00 35.72 Diandra [facility] height 2021-12-14 08:00:00 67 [in_i] [facility] weight 2021-12-14 08:00:00 102 [lb_av] [facility] temperature 2021-12-14 08:00:00 97.2 [degF] [facility] bmi 2021-12-14 08:00:00 15.97 kg/m2 [facility] blood pressure 2021-12-14 08:00:00 110 mm[Hg] [facility] Spirit - systolic [facility] blood pressure 2021-12-14 08:00:00 68 mm[Hg] [facility] - diastolic [facility] BP Systolic 2022-01-16 14:05:00 150 mm[Hg] BP [...] Procedure Date / Time Performed Performing Clinician [facility] e BASIC METABOLIC PANEL 2022-06-19 09:25:00 Mario Thompson [facility] (NA, K, CL, CO2, Medical Branch GLUCOSE, BUN, CREATININE, CA) CBC WITH DIFF 2022-06-19 09:25:00 Mario Thompson [facility] Plan of Care Planned Activity Planned [...] 00:00:00 (1 of 1 - Medical Center [id number] PCV13) [code = PNEUMOCOCCAL 65+ YRS (1 of 1 - [id number]_Nyubyni PCV13)] Future Scheduled 2000-10-14 PNEUMOCOCCAL 65+ YRS [facility] Test 00:00:00 (1 of 1 [facility] [id number] PCV13) [code = PNEUMOCOCCAL 65+ YRS (1 of 1 - [id number]_[id number] PCV13)] Future Scheduled 2000-10-14 PNEUMOCOCCAL 65+ YRS [facility] Test 00:00:00 ([address] [place] [address] [id number]_[id number] PCV13) [code = PNEUMOCOCCAL 65+ YRS (1 of 1 - [id number]_[id number] PCV13)] Future Scheduled 2000-10-14 PNEUMOCOCCAL 65+ Y[facility] Test 00:00:00 ([address] [place] [address] [id number]_Vxlkwqy PCV13) [code = PNEUMOCOCCAL 65+ YRS (1 of 1 - [id number]_[id number] PCV13)] Future Scheduled 2000-10-14 PNEUMOCOCCAL 65+ YRS [facility] Test 00:00:00 ([address] [place] [address] [id number] PCV13) [code = PNEUMOCOCCAL 65+ YRS (1 of 1 - [id number]_Fhrzuam PCV13)] Future Scheduled 2000-10-14 PNEUMOCOCCAL 65+ Y[facility] Test 00:00:00 ([address] [place] [address] [id number]_[id number] PCV13) [code = PNEUMOCOCCAL 65+ YRS (1 of 1 - [id number]_Mogpulz PCV13)] Future Scheduled 2000-10-14 PNEUMOCOCCAL 65+ YRS [facility] Test 00:00:00 ([address] [place] [address] [id number]_[id number] PCV13) [code = PNEUMOCOCCAL 65+ YRS (1 of 1 - [id number]_Hniotho PCV13)] Future Scheduled 2000-10-14 PNEUMOCOCCAL 65+ YRS [facility] Test 00:00:00 ([address] [place] [address] Center [id number]_Istijil PCV13) [code = PNEUMOCOCCAL 65+ YRS (1 of 1 - [id number]_Yxcwkfb PCV13)] Future Scheduled 2000-10-14 PNEUMOCOCCAL 65+ Y[facility] Test 00:00:00 ([address] [place] [address] Center [id number]_Ofdkdgm PCV13) [code = PNEUMOCOCCAL 65+ YRS (1 of 1 - [id number]_Fofokig PCV13)] Future Scheduled 1985-10-14 SHINGLES VACCINES (1 [...] Goal Plan of Care Note [code = 59080-9] Goal Plan of Care Note [code = 50988-1] Goal Plan of Care Note [code = 35084-5] Goal Plan of Care Note [code = 52428-3] Goal Plan of Care Note [code = 63796-0] Goal Plan of Care Note [code = 89120-9] Goal Plan of Care Note [code = 15671-5] Goal Plan of Care Note [code = 63252-0] Goal Plan of Care Note [code = 81589-5] Goal Plan of Care Note [code = 43430-1] Goal Plan of Care Note [code = 70735-2] Goal Plan of Care Note [code = 40665-8] Goal Plan of Care Note [code = 22510-3] Goal Plan of Care Note [code = 15008-7] Goal Plan of Care Note [code = 44587-3] Goal Plan of Care Note [code = 66430-8] Goal Plan of Care Note [code = 79292-1] Goal Plan of Care Note [code = 66428-9] Goal Plan of Care Note [code = 84064-5] Goal Plan of Care Note [code = 71293-8] Goal Plan of Care Note [code = 41948-1] Goal Plan of Care Note [code = 85268-2] Goal Plan of Care Note [code = 57994-6] Goal Plan of Care Note [code = 76191-7] Goal Plan of Care Note [code = 25606-7] Goal Plan of Care Note [code = 77353-9] Goal Plan of Care Note [code = 34345-0] Goal Plan of Care Note [code = 22422-9] Goal Plan of Care Note [code = 60210-7] Goal Plan of Care Note [code = 91195-9] Goal Plan of Care Note [code = 08491-0] Goal Plan of Care Note [code = 92162-3] Goal Plan of Care Note [code = 03575-0] Goal Plan of Care Note [code = 33533-9] Goal Plan of Care Note [code = 75280-4] Goal Plan of Care Note [code = 02065-7] Goal Plan of Care Note [code = 27902-0] Goal Plan of Care Note [code = 01996-7] Goal Plan of Care Note [code = 31665-8] Goal Plan of Care Note [code = 03115-1] Goal Plan of Care Note [code = 25105-7] Goal Plan of Care Note [code = 43917-4] Goal Plan of Care Note [code = 68215-2] Goal Plan of Care Note [code = 28641-8] Goal Plan of Care Note [code = 97369-9] Goal Plan of Care Note [code = 78146-5] Goal Plan of Care Note [code = 51361-0] Goal Plan of Care Note [code = 60100-8] Goal Plan of Care Note [code = 88506-1] Goal Plan of Care Note [code = 06311-2] Goal Plan of Care Note [code = 76876-1] Goal Plan of Care Note [code = 57422-0] Goal Plan of Care Note [code = 76966-0] Goal Plan of Care Note [code = 42925-2] Goal Plan of Care Note [code = 95545-5] Goal Plan of Care Note [code = 82636-6] Goal Plan of Care Note [code = 20127-1] Goal Plan of Care Note [code = 29904-4] Goal Plan of Care Note [code = 89526-7] Goal Plan of Care Note [code = 46899-4] Goal Plan of Care Note [code = 22283-4] Goal Plan of Care Note [code = 19929-7] Goal Plan of Care Note [code = 89858-6] Goal Plan of Care Note [code = 20927-1] Goal Plan of Care Note [code = 02399-2] Goal Plan of Care Note [code = 69243-2] Goal Plan of Care Note [code = 18624-9] Goal Plan of Care Note [code = 99195-1] Goal Plan of Care Note [code = 07255-7] Goal Plan of Care Note [code = 81409-5] Goal Plan of Care Note [code = 36622-6] Goal Plan of Care Note [code = 09308-1] Goal Plan of Care Note [code = 59122-0] Goal Plan of Care Note [code = 40394-2] Goal Plan of Care Note [code = 96159-1] Goal Plan of Care Note [code = 93274-1] Goal Plan of Care Note [code = 72176-7] Goal Plan of Care Note [code = 41792-5] Goal Plan of Care Note [code = 56395-9] Goal Plan of Care Note [code = 76399-6] Goal Plan of Care Note [code = 05367-8] Goal Plan of Care Note [code = 62786-9] Goal Plan of Care Note [code = 00914-2] Goal Plan of Care Note [code = 57961-9] Goal Plan of Care Note [code = 04849-1] Goal Plan of Care Note [code = 30861-6] Goal Plan of Care Note [code = 42855-5] Goal Plan of Care Note [code = 22325-7] Goal Plan of Care Note [code = 06496-6] Goal Plan of Care Note [code = 84276-4] Encounters Start End Encounter Admission Attending Care Care Encounter Source Date/Time Date/Time Type Type Clinicians Facility Department ID 2021-12-14 Outpatient IAM STLMLC STLMLC [id number] Common 08:02: , Sanket JEREZ - [facility] 2021-11-01 Outpatient STLMLC STLMLC [id number] Common 08:28:00 [facility] 2021-05-10 Outpatient STLMLC STLMLC [id number] Common 14:37:15 [facility] 2022-06-19 2022-06-19 Emergency X [facility] ERT [id number] Univers 03:01:00 05:29:00 MARIO hernández [facility] 2022-06-19 2022-06-19 Emergency [facility] [id number] Univers 03:01:00 05:29:00 Mario Smyth [place] [id number] [id number] [address] 2022-06-06 2022-06-06 Outpatient SFA SFA [id number] [place] 15:21:28 15:21:28 0222 [facility] 2022-04-26 2022-04-26 Outpatient SFA SFA [id number] 023 [place] 09:24:32 09:24:32 0112 [facility] [place] 2022-04-23 2022-04-23 Outpatient SFA SFA [id number] 023 [place] 15:40:31 15:40:31 0109 [facility] 2022-01-16 2022-01-16 Outpatient SFA SFA [id number] [place] 13:58:33 13:58:33 1004 [facility] 2022-01-16 2022-01-16 Outpatient [id number] e9 [id number] 00:00:00 00:00:00 Visit 4eec-4016 eec-4016-8 -803c-5f9 03c-5f94ae [id number] [id number] 2021-12-15 2021-12-15 (TEL) STLMLC STLMLC [id number] mmon 00:00:00 00:00:00 [facility] 2021-12-14 2021-12-14 NON-BILLAB STLMLC STLMLC [id number] Common 00:00:00 00:00:00 LE VISIT Ami Deleon [facility] 2021-12-12 2021-12-12 Outpatient [id number] a0 1n2a01-j 00:00:00 00:00:00 Visit v4s0-94r3 4z2-11y3-m -d26k-y17 99a-c59f17 w64t6j6dh b8a9bd 2021-10-30 2021-10-30 Outpatient [id number]- [id number] 8e m46m67-0 00:00:00 00:00:00 Visit 4m7n-8d8h d9m-0s0r-d -r276-333 [id number] 3fd9fb 2021-08-01 2021-08-01 [facility] [id number] Univers 09:00:00 09:00:00 ROXY [id number] [facility] 2021-08-01 2021-08-01 [facility] [id number] Univers 09:00:00 09:00:00 ROXY [facility] 2021-07-01 2021-07-01 Outpatient HANSA HUNG [id number] [place] 00:00:00 00:00:00 YUE hernandez 2021-06-25 2021-06-25 Outpatient HANSA HUNG [id number] [place] 00:00:00 00:00:00 YUE hernandez 2020-10-03 2020-10-03 [id number] [facility] 00:00:00 00:00:00 [facility] 350.1.13.10 y of Surgical 4.2.7.2.686 Hi as Specialti [id number] Ne dical [address] [place] 2020-04-29 2020-04-29 [facility] [id number]-20 Univers 15:00:00 15:00:00 YESIKA [id number] [facility] 2020-04-29 2020-04-29 Outpatient Ananda DYER [facility] [id number] Univers 15:00:00 15:00:00 YESIKA [facility] 2018-11-06 2018-11-06 Outpatient Marshal Alejandro [id number] Common 11:00:00 11:00:00 [facility] 2018-10-09 2018-10-09 Outpatient Marshal Arayat 26 [id number] Common 10:30:00 10:30:00 [facility] Results Test Description Test Time Test Comments Results Result Comments Source CULTURE, URINE 2022-01-19 SPECIMEN NUMBER: 12:40:01 [id number] CULTURE, URINE SPECIMEN NUMBER: [id number] SPECIMEN COMMENT: URINE SOURCE: URINE REPORT STATUS: [...] MCG/ML. UNLESS OTHERWISE INDICATED, ALL TESTING PERFORMED [facility], [facility] [address] [place] [address] HYDROGEN CELL TENDER: KIESHA LEI M.D. CLIA NUMBER [id number] [facility] [place] [id number] CULTURE, URINE 2022-01-19 00:00:00 Test Item Value Reference Range Interpretation Comme nts CULTURE, URINE (test code = 22891) SPECIMEN NUMBER: [id number] CULTURE, [id number] 00:00:00 Test Item Value Reference Range Interpretation Comments CULTURE, URINE (test SPECIMEN NUMBER: code = 79552) [id number] COMPREHENSIVE METABOLIC [id number] 00:00:00 Test Item Value Reference Range Interpretation Comments GLUCOSE (test code = 2217) 123 MG/DL BUN (test code = 2208) 81 MG/DL CREATININE (test code = 2214) 5.82 MG/DL eGFR AMER. (test code = 7 ML/MIN/1.73 56887) eGFR (2020 CKD-EPI) (test code 6 ML/MIN/1.73 = 44985) CALC BUN/CREAT (test code = 14 RATIO [...] code = 2219) 12 U/L COMPREHENSIVE METABOLIC [id number] 00:00:00 Test Item Value Reference Range Interpretation Comments GLUCOSE (test code = 2217) 123 MG/DL BUN (test code = 2208) 81 MG/DL CREATININE (test code = 2214) 5.82 MG/DL eGFR AMER. (test code = 7 ML/MIN/1.73 06916) eGFR (2020 CKD-EPI) (test code 6 ML/MIN/1.73 = 47820) CALC BUN/CREAT (test code = 14 RATIO [...] code = 2219) 12 U/L COMPREHENSIVE METABOLIC [id number] 00:00:00 Test Item Value Reference Range Interpretation Comments GLUCOSE (test code = 2217) 123 MG/DL BUN (test code = 2208) 81 MG/DL CREATININE (test code = 2214) 5.82 MG/DL eGFR AMER. (test code = 7 ML/MIN/1.73 19155) eGFR (2020 CKD-EPI) (test code 6 ML/MIN/1.73 = 69331) CALC BUN/CREAT (test code = 14 RATIO [...] code = 2219) 12 U/L COMPREHENSIVE METABOLIC [id number] 00:00:00 Test Item Value Reference Range Interpretation Comments GLUCOSE (test code = 2217) 123 MG/DL BUN (test code = 2208) 81 MG/DL CREATININE (test code = 2214) 5.82 MG/DL eGFR AMER. (test code = 7 ML/MIN/1.73 11511) eGFR (2020 CKD-EPI) (test code 6 ML/MIN/1.73 = 40923) CALC BUN/CREAT (test code = 14 RATIO [...] code = 2219) 12 U/L COMPREHENSIVE METABOLIC [id number] 00:00:00 Test Item Value Reference Range Interpretation Comments GLUCOSE (test code = 2217) 123 MG/DL BUN (test code = 2208) 81 MG/DL CREATININE (test code = 2214) 5.82 MG/DL eGFR AMER. (test code = 7 ML/MIN/1.73 68663) eGFR (2020 CKD-EPI) (test code 6 ML/MIN/1.73 = 46533) CALC BUN/CREAT (test code = 14 RATIO [...] code = 2219) 12 U/L COMPREHENSIVE METABOLIC [id number] 00:00:00 Test Item Value Reference Range Interpretation Comments GLUCOSE (test code = 2217) 123 MG/DL BUN (test code = 2208) 81 MG/DL CREATININE (test code = 2214) 5.82 MG/DL eGFR AMER. (test code = 7 ML/MIN/1.73 79058) eGFR (2020 CKD-EPI) (test code 6 ML/MIN/1.73 = 74786) CALC BUN/CREAT (test code = 14 RATIO 5) SODIUM (test code = 2231) 141 MEQ/L [...] code = 1.33 NG/DL 2823) CBC W/AUTO [id number] 00:00:00 Test Item Value Reference Range Interpretation [...] code = 1015) 297 K/UL CBC W/AUTO [id number] 00:00:00 Test Item Value Reference Range Interpretation [...] code = 1015) 297 K/UL CBC W/AUTO [id number] 00:00:00 Test Item Value Reference Range Interpretation [...] code = 1015) 297 K/UL COMPREHENSIVE METABOLIC [id number] 00:00:00 Test Item Value Reference Range Interpretation Comments GLUCOSE (test code = 2217) 92 MG/DL BUN (test code = 2208) 29 MG/DL CREATININE (test code = 2214) 1.53 MG/DL eGFR AMER. (test code 36 ML/MIN/1.73 = 81259) eGFR NON- AMER. (test 31 ML/MIN/1.73 code = 46048) CALC BUN/CREAT (test code = 19 RATIO [...] code = 2219) 18 U/L COMPREHENSIVE METABOLIC [id number] 00:00:00 Test Item Value Reference Range Interpretation Comments GLUCOSE (test code = 2217) 92 MG/DL BUN (test code = 2208) 29 MG/DL CREATININE (test code = 2214) 1.53 MG/DL eGFR AMER. (test code 36 ML/MIN/1.73 = 77452) eGFR NON- AMER. (test 31 ML/MIN/1.73 code = 22276) CALC BUN/CREAT (test code = 19 RATIO [...] BILIRUBIN, TOTAL (test code = 0.3 MG/DL 7) ALKALINE PHOSPHATASE (test 73 U/L code = 2204) AST (test code = 2218) 27 U/L ALT (test code = 2219) 18 U/L [id number] 00:00:00 Test Item Value Reference Range Interpretation Comments TSH, THIRD GENERATION (test code 3.330 UIU/ML = 2821) [id number] 00:00:00 Test Item Value Reference Range Interpretation Comments TSH, THIRD GENERATION (test code 3.330 UIU/ML = 2821) [id number] 00:00:00 Test Item Value Reference Range Interpretation [...] code = 1.33 NG/DL 2823) CBC W/AUTO [id number] 00:00:00 Test Item Value Reference Range Interpretation [...] code = 1015) 297 K/UL CBC W/AUTO [id number] 00:00:00 Test Item Value Reference Range Interpretation [...] code = 1015) 297 K/UL CBC W/AUTO [id number] 00:00:00 Test Item Value Reference Range Interpretation [...] code = 1015) 297 K/UL COMPREHENSIVE METABOLIC [id number] 00:00:00 Test Item Value Reference Range Interpretation Comments GLUCOSE (test code = 2217) 92 MG/DL BUN (test code = 2208) 29 MG/DL CREATININE (test code = 2214) 1.53 MG/DL eGFR AMER. (test code 36 ML/MIN/1.73 = 31494) eGFR NON- AMER. (test 31 ML/MIN/1.73 code = 17555) CALC BUN/CREAT (test code = 19 RATIO [...] code = 2219) 18 U/L COMPREHENSIVE METABOLIC [id number] 00:00:00 Test Item Value Reference Range Interpretation Comments GLUCOSE (test code = 2217) 92 MG/DL BUN (test code = 2208) 29 MG/DL CREATININE (test code = 2214) 1.53 MG/DL eGFR AMER. (test code 36 ML/MIN/1.73 = 68660) eGFR NON- AMER. (test 31 ML/MIN/1.73 code = 20997) CALC BUN/CREAT (test code = 19 RATIO [...] ALT (test code = 2219) 18 U/L [id number] 00:00:00 Test Item Value Reference Range Interpretation Comments TSH, THIRD GENERATION (test code 3.330 UIU/ML = 2821) [id number] 00:00:00 Test Item Value Reference Range Interpretation Comments TSH, THIRD GENERATION (test code 3.330 UIU/ML = 2821) [id number] 00:00:00 Test Item Value Reference Range Interpretation [...] code = 1.33 NG/DL 2823) CBC W/AUTO [id number] 00:00:00 Test Item Value Reference Range Interpretation [...] code = 1015) 297 K/UL CBC W/AUTO [id number] 00:00:00 Test Item Value Reference Range Interpretation [...] code = 1015) 297 K/UL CBC W/AUTO [id number] 00:00:00 Test Item Value Reference Range Interpretation [...] code = 1015) 297 K/UL COMPREHENSIVE METABOLIC [id number] 00:00:00 Test Item Value Reference Range Interpretation Comments GLUCOSE (test code = 2217) 92 MG/DL BUN (test code = 2208) 29 MG/DL CREATININE (test code = 2214) 1.53 MG/DL eGFR AMER. (test code 36 ML/MIN/1.73 = 01663) eGFR NON- AMER. (test 31 ML/MIN/1.73 code = 34050) CALC BUN/CREAT (test code = 19 RATIO [...] code = 2219) 18 U/L COMPREHENSIVE METABOLIC [id number] 00:00:00 Test Item Value Reference Range Interpretation Comments GLUCOSE (test code = 2217) 92 MG/DL BUN (test code = 2208) 29 MG/DL CREATININE (test code = 2214) 1.53 MG/DL eGFR AMER. (test code 36 ML/MIN/1.73 = 52638) eGFR NON- AMER. (test 31 ML/MIN/1.73 code = 90193) CALC BUN/CREAT (test code = 19 RATIO [...] ALT (test code = 2219) 18 U/L [id number] 00:00:00 Test Item Value Reference Range Interpretation Comments TSH, THIRD GENERATION (test code 3.330 UIU/ML = 2821) [id number] 00:00:00 Test Item Value Reference Range Interpretation Comments TSH, THIRD GENERATION (test code 3.330 UIU/ML = 2821) [id number] 00:00:00 Test Item Value Reference Range Interpretation Comments TSH, THIRD GENERATION (test code 3.330 UIU/ML = 2821) FREE T4 (THYROXINE)2020-02-02 00:00:00 Test Item Value Reference Range Interpretation Comments FREE T4 (THYROXINE) (test code = 1.33 NG/DL 2823) CALCIUM, [id number] 06:48:00 Test Item Value Reference Range Interpretation Comments CALCIUM IONIZED (BEAKER) (test 1.05 mmol/L 1.12-1.27 L code = 698) PH, BLOOD (BEAKER) (test code = 7.43 1810) [id number] 06:12:00 Test Item Value Reference Range Interpretation Comments PHOSPHORUS (BEAKER) (test code = 3.4 mg/dL 2.3-4.7 604) [id number] 06:12:00 Test Item Value Reference Range Interpretation Comments MAGNESIUM (BEAKER) (test code = 1.7 mg/dL 1.6-2.6 627) BASIC METABOLIC [id number] 06:12:00 Test Item Value Reference Range Interpretation [...] PATIEN TS. CBC W/PLT COUNT & AUTO [id number] 05:34:00 Test Item Value Reference Range Interpretation [...] code = 2801) MR, MRA, BRAIN, WITHOUT [id number] 10:59:00Reason for exam:->Ischemic Stroke EvaluationFINAL REPORT MRA Head CLINICAL HISTORY: Stroke TECHNIQUE: MRA of the head utilizing 3-D qnpj-wn-pjtvlk technique, with 3-D reconstructions. COMPARISON: None IMPRESSION: Allowing for mild motion degradation, there is no evidence for a [facility] proximal branch vessel occlusion. Distal branch vessel occlusions cannot be excluded. Aneurysms cannot be excluded. MRA Neck CLINICAL HISTORY: Stroke TECHNIQUE: MRA of the neck utilizing 2-D and 3-D gwss-jq-brvnec technique, with 3-D reconstructions. COMPARISON: None IMPRESSION: [...] by cervical muscular branches. Signed: Arianna Echevarria MDReport Verified Date/Time: 06/16/2018 10:59:34 Reading Location: [address] Neuro Reading Room MR, MRA, NECK, WITHOUT IV [id number] 10:59:00Reason for exam:->Ischemic Stroke EvaluationFINAL REPORT MRA Head CLINICAL HISTORY: Stroke TECHNIQUE: MRA of the head utilizing 3-D grfi-be-fybpjb technique, with 3-D reconstructions. COMPARISON: None IMPRESSION: Allowing for mild motion degradation, there is no evidence for a [facility] proximal branch vessel occlusion. Distal branch vessel occlusions cannot be excluded. Aneurysms cannot be excluded. MRA Neck CLINICAL HISTORY: Stroke TECHNIQUE: MRA of the neck utilizing 2-D and 3-D moll-ho-wmjyvc technique, with 3-D reconstructions. COMPARISON: None IMPRESSION: Metallic shielding effect around the left carotid bifurcation is compatible with a stent. The left carotid artery is patent proximal and distal to the stent, but please note that in-stent stenosis cannot be excluded. There is 20% stenosis of the proximal right internal carotid artery by NASCET criteria. There is antegrade flow in the right vertebral art ruebn. The proximal left vertebral artery is not visualized. The distal left cervical vertebral arteryis discontinuous and threadlike, likely partially reconstituted by cervical muscular branches. Signed: Arianna Echevarria MDReport Verified Date/Time: 06/16/2018 10:59:34 Reading Location: [address] Neuro Reading Room MR, BRAIN, WITHOUT [id number] 10:52:00Reason for exam:->Ischemic Stroke EvaluationFINAL REPORT MRI [...] with generalized parenchymal volumeloss. Signed: Arianna Echevarria MDRcorwinort Verified Date/Time: 06/16/2018 10:52:22 Reading Location: [address] Neuro Reading Room HEMOGLOBIN [id number] 09:43:00 Test Item Value Reference Range Interpretation Comments HEMOGLOBIN A1C (BEAKER) (test code = 5.9 % 4.3-6.1 368) VITAMIN [id number] 06:40:00 Test Item Value Reference Range Interpretation Comments VITAMIN B12 (BEAKER) (test code = 375 pg/mL 213-813 774) TSH/FREE T4 IF [id number] 05:45:00 Test Item Value Reference Range Interpretation Comments THYROID STIMULATING HORMONE 4.44 uIU/mL 0.35-4.94 (Waynaut) (test code = 772) LIPID [id number] 05:27:00 Test Item Value Reference Range Interpretation Comments TRIGLYCERIDES (FloTimeAKER) 73 mg/dL Speci men slightly (test code = 540) hemolyzed CHOLESTEROL (FloTimeAKER) 114 mg/dL Specime n slightly (test code = 631) hemolyzed HDL CHOLESTEROL (FloTimeAKER) 46 mg/dL (test code = 976) LDL CHOLESTEROL 53 mg/dL CALCULATED (Waynaut) (test code = 633) Triglyceride Reference Range: Low Risk <150 Borderline 150-199 High Risk 200- 499 Very High Risk >=500Cholesterol Reference Range: Low Risk <200 Borderline 200-239 High Risk >240HDL Cholesterol Reference Range: Low Risk >=60 High Risk <40LDL Cholesterol Reference Range: Optimal <100 Near Optimal 100-129 Borderline 130-159 High 160-189 Very High >=190
[2022-08-15] MEDS ORDERED: SCOPOLAMINE HYDROBROMIDE PATCH TD SCH (20:00)
[2022-08-15 21:26] VITALS: BP 157/43; TEMP 97.8
[2022-08-16] MEDS: FENTANYL CITR 100 MCG/2 ML IV PRN ×2 (00:12→04:23)
[2022-08-16 01:57] VITALS: O2SAT 94
[2022-08-16] MEDS: LORazepam 2 MG/ML VIAL IV PRN ×2 (04:23)
[2022-08-17] MEDS ORDERED: SCOPOLAMINE HYDROBROMIDE PATCH TD SCH (19:00)
== END 2022-08-16 07:20 | disposition expired | DRG 951 ==
LOC: 3RD-ICU 18:32
PROVIDERS: ADMIT Internal Medicine Hematology & Oncology; ATTEND Internal Medicine Hematology & Oncology
DX: Z51.5 Encounter for palliative care (principal)
CPT/HCPCS: J3010